=== PATIENT | male | born 1965 | race Caucasian/White ===

== ENCOUNTER 2017-05-22 22:57 | Inpatient (IN) | payer OTHER ==
[~2017-05-22] VITALS: Ht 177.8 cm; Wt 122.5 kg
[~2017-05-22 22:57] MED LIST: BISO1TAB37 PO; SULF500T5 PO
[2017-05-23] MEDS ORDERED: ONDANSETRON 4 MG/2 ML (SDV) Z0FRAN IVP ONE ×2 (00:30→07:00)
[2017-05-23 00:31] LABS: BASOPHILS # (AUTO) 0.1 10^3/uL (0.0-0.1); BASOPHILS % (AUTO) 1 % (0-10); EOSINOPHILS # (AUTO) 0.2 10^3/uL (0.0-0.3); EOSINOPHILS % (AUTO) 2 % (0-10); HEMATOCRIT 42 % (40-54); HEMOGLOBIN 15.6 G/DL (13.3-17.7); LYMPHOCYTES # (AUTO) 0.8 X 10^3 (1.0-4.0); LYMPHOCYTES % (AUTO) 10 % (12-44); MEAN CORPUSCULAR HEMOGLOBIN 32 PG (25-34); MEAN CORPUSCULAR HGB CONC 37 G/DL (32-36); MEAN CORPUSCULAR VOLUME 85 FL (80-99); MEAN PLATELET VOLUME 10.7 FL (7.4-10.4); MONOCYTES % (AUTO) 13 % (0-12); NEUTROPHILS # (AUTO) 5.8 X 10^3 (1.8-7.8); NEUTROPHILS % (AUTO) 74 % (42-75); PLATELET COUNT 134 10^3/uL (130-400); RED BLOOD COUNT 4.96 10^6/uL (4.35-5.85); RED CELL DISTRIBUTION WIDTH 13.8 % (10.0-14.5); WHITE BLOOD COUNT 7.9 10^3/uL (4.3-11.0)
[2017-05-23 00:47] LABS: ALANINE AMINOTRANSFERASE 34 U/L (0-55); ALKALINE PHOSPHATASE 255 U/L (40-136); AMMONIA 115 UMOL/L (11-32); BILIRUBIN,TOTAL 2.2 MG/DL (0.1-1.0); BUN/CREATININE RATIO 15; CALCIUM 8.1 MG/DL (8.5-10.1); CARBON DIOXIDE 25 MMOL/L (21-32); CHLORIDE 98 MMOL/L (98-107); CREATININE SERUM 1.01 MG/DL (0.60-1.30); GFR ESTIMATED > 60; GLUCOSE 110 MG/DL (70-105); MAGNESIUM 1.6 MG/DL (1.8-2.4); POTASSIUM 2.9 MMOL/L (3.6-5.0); SODIUM 136 MMOL/L (135-145); TOTAL PROTEIN 5.8 GM/DL (6.4-8.2)
[2017-05-23] MEDS ORDERED: LACTULOSE SYRUP 10GM/15ML (ENULOSE) 30ML UDC PO ONE ×2 (01:15→07:30)
--- NOTE | 2017-05-23 01:22 | ED Abdominal Pain ---
General Chief Complaint: Abdominal/GI Problems Stated Complaint: STOMACH PAIN Nursing Triage Note: PT REPORTS ABDOMINAL PAIN X 2 DAYS. PT REPORTS PT HAS HX OF CIRROSIS OF LIVER AND ULCERATIVE COLITIS. ALSO REPORTS INCREAS IN CONFUSION TODAY. Sepsis Screen: No Definite Risk Source of Information: Patient Exam Limitations: No Limitations History of Present Illness Date Seen by Provider: May 23, 2017 Time Seen by Provider: 01:00 Initial Comments Here with abdominal pain 2 days and confusion. Has history of hepatic failure. Denies fever or vomiting. States pain is actually better now. Liver failure his recent diagnosis apparently. Denies breathing problems. Timing/Duration: 2-3 Days Severity/Quality: Moderate, Aching Location: Generalized Abdomen Radiation: No Radiation Activities at Onset: None Modifying Factors: Improves With Resting Associated Symptoms: No Back Pain, No Chest Pain, No Fever/Chills, Fatigue, No Shortness of Air, Weakness Allergies and Home Medications Allergies Coded Allergies: No Known Drug Allergies (Verified , 02/01/16) Home Medications Bisoprolol Fumarate/Hctz 1 Each Tablet, 1 EACH PO DAILY, (Reported) Sulfadiazine 500 Mg Tablet, 2,000 MG PO BID, (Reported) Review of Systems Constitutional: see HPI, No chills, No fever, malaise, weakness EENTM: No Symptoms Reported Respiratory: No Symptoms Reported Cardiovascular: No Symptoms Reported Gastrointestinal: Abdominal Pain, Denies Diarrhea, Nausea, Denies Vomiting Genitourinary: No Symptoms Reported Musculoskeletal: no symptoms reported All Other Systems Reviewed Negative Unless Noted: Yes Past Dydqzxa-Pwyyhy-Vzaxfs Hx Patient Social History Alcohol Use: Denies Use Recreational Drug Use: No Smoking Status: Former Smoker Former Smoker, Quit: May 01, 2015 Recent Foreign Travel: No Contact w/Someone Who Travel: No Recent Infectious Disease Expo: No Recent Hopitalizations: No Surgeries History of Surgeries: Yes (ELBOW SURGERY, COLONOSCOPY) Respiratory History of Respiratory Disorde: Yes (SLEEP APNEA-CPAP) Respiratory Disorders: Sleep Apnea Cardiovascular History of Cardiac Disorders: Yes Cardiac Disorders: Hypertension Neurological History of Neurological Disord: No Genitourinary History of Genitourinary Disor: No Gastrointestinal History of Gastrointestinal Di: Yes Gastrointestinal Disorders: Colitis, Liver Disease/Jaundice, Cirrhosis Musculoskeletal History of Musculoskeletal Dis: No Endocrine History of Endocrine Disorders: No Cancer History of Cancer: No Psychosocial History of Psychiatric Problem: No Integumentary History of Skin or Integumenta: Yes Skin/Integumentary Disorders: Psoriasis Blood Transfusions History of Blood Disorders: No Adverse Reaction to a Blood Tr: No Reviewed Nursing Assessment Reviewed/Agree w Nursing PMH: Yes Family Medical History Significant Family History: No Pertinent Family Hx Physical Exam Vital Signs VS - Last 72 Hours, by Label 05/22/17 23:59 Temp 97.7 Pulse 61 Resp 18 B/P (MAP) 140/78 (98) Pulse Ox 97 Capillary Refill : Less Than 3 Seconds General Appearance: WD/WN, no apparent distress HEENT: PERRL/EOMI, pharynx normal Neck: full range of motion, supple Respiratory: lungs clear, normal breath sounds Cardiovascular: regular rate, rhythm, no murmur Gastrointestinal: normal bowel sounds, non tender, soft, hepatomegaly Extremities: non-tender, normal inspection Back: normal inspection, no CVA tenderness, no vertebral tenderness Neurologic/Psychiatric: alert, oriented x 3 Skin: normal color, warm/dry, other (clubbing of the fingers noted.) Focused Exam Evaluation Lactate Level Laboratory Tests 05/23/17 00:15: Lactic Acid Level 1.97 Lactic Acid Level Laboratory Tests Test 05/23/17 00:15 Lactic Acid Level 1.97 MMOL/L (0.50-2.00) Progress/Results/Core Measures Results/Orders Lab Results Laboratory Tests Test 05/23/17 00:15 05/23/17 01:45 Range/Units White Blood Count 7.9 4.3-11.0 10^3/uL Red Blood Count 4.96 4.35-5.85 10^6/uL Hemoglobin 15.6 13.3-17.7 G/DL Hematocrit 42 40-54 % Mean Corpuscular Volume 85 80-99 FL Mean Corpuscular Hemoglobin 32 25-34 PG Mean Corpuscular Hemoglobin Concent 37 H 32-36 G/DL Red Cell Distribution Width 13.8 10.0-14.5 % Platelet Count 134 130-400 10^3/uL Mean Platelet Volume 10.7 H 7.4-10.4 FL Neutrophils (%) (Auto) 74 42-75 % Lymphocytes (%) (Auto) 10 L 12-44 % Monocytes (%) (Auto) 13 H 0-12 % Eosinophils (%) (Auto) 2 0-10 % Basophils (%) (Auto) 1 0-10 % Neutrophils # (Auto) 5.8 1.8-7.8 X 10^3 Lymphocytes # (Auto) 0.8 L 1.0-4.0 X 10^3 Monocytes # (Auto) 1.0 0.0-1.0 X 10^3 Eosinophils # (Auto) 0.2 0.0-0.3 10^3/uL Basophils # (Auto) 0.1 0.0-0.1 10^3/uL Sodium Level 136 135-145 MMOL/L Potassium Level 2.9 L 3.6-5.0 MMOL/L Chloride Level 98 98-107 MMOL/L Carbon Dioxide Level 25 21-32 MMOL/L Anion Gap 13 5-14 MMOL/L Blood Urea Nitrogen 15 7-18 MG/DL Creatinine 1.01 0.60-1.30 MG/DL Estimat Glomerular Filtration Rate > 60 BUN/Creatinine Ratio 15 Glucose Level 110 H 70-105 MG/DL Lactic Acid Level 1.97 0.50-2.00 MMOL/L Calcium Level 8.1 L 8.5-10.1 MG/DL Magnesium Level 1.6 L 1.8-2.4 MG/DL Total Bilirubin 2.2 H 0.1-1.0 MG/DL Aspartate Amino Transf (AST/SGOT) 53 H 5-34 U/L Alanine Aminotransferase (ALT/SGPT) 34 0-55 U/L Alkaline Phosphatase 255 H 40-136 U/L Ammonia 115 H 11-32 UMOL/L C-Reactive Protein High Sensitivity 10.17 H 0.00-0.50 MG/DL Total Protein 5.8 L 6.4-8.2 GM/DL Albumin 3.0 L 3.2-4.5 GM/DL Urine Color BROWN H Urine Clarity SLIGHTLY CLOUDY Urine pH 6 5-9 Urine Specific [place] 1.015 L 1.016-1.022 Urine Protein 2+ H NEGATIVE Urine Glucose (UA) NEGATIVE NEGATIVE Urine Ketones NEGATIVE NEGATIVE Urine Nitrite POSITIVE H NEGATIVE Urine Bilirubin 2+ H NEGATIVE Urine Urobilinogen 4 H NORMAL MG/DL Urine Leukocyte Esterase 2+ H NEGATIVE Urine RBC (Auto) 3+ H NEGATIVE Urine RBC 25-50 H /HPF Urine WBC 10-25 H /HPF Urine Crystals NONE /LPF Urine Bacteria FEW H /HPF Urine Casts PRESENT /LPF Urine Hyaline Casts >50 H /LPF Urine Mucus NEGATIVE /LPF Urine Culture Indicated YES My Orders Orders - TWYLA MORTON MD Ammonia (05/23/17 00:21) Cbc With Automated Diff (05/23/17 00:21) Comprehensive Metabolic Panel (05/23/17 00:21) Hs C Reactive Protein (05/23/17 00:21) Lactic Acid Analyzer (05/23/17 00:21) Magnesium (05/23/17 00:21) Ua Culture If Indicated (05/23/17 00:21) Blood Culture (05/23/17 00:21) Saline Lock/Iv-Start (05/23/17 00:21) Chest 1 View, Ap/Pa Only (05/23/17 00:21) Ondansetron Injection (Zofran Injectio (05/23/17 00:30) Lactulose Oral Solution (Enulose Oral So (05/23/17 01:15) Urine Culture (05/23/17 01:45) Ceftriaxone Injection (Rocephin Injectio (05/23/17 02:45) Medications Given in ED Current Medications Medications Dose Ordered Sig/Vesta Route Start Time Stop Time Status Last Admin Dose Admin Ceftriaxone Sodium 1000 mg/ Dextrose/Water 50 ml @ 100 mls/hr ONCE ONCE IV 05/23/17 02:45 05/23/17 03:14 DC 05/23/17 03:39 100 MLS/HR Lactulose 30 gm ONCE ONCE PO 05/23/17 01:15 05/23/17 01:16 DC 05/23/17 02:34 30 GM Ondansetron HCl 4 mg ONCE ONCE IVP 05/23/17 00:30 05/23/17 00:31 DC 05/23/17 00:31 4 MG Vital Signs/I&O Vital Sign - Last 12Hours 05/22/17 23:59 Temp 97.7 Pulse 61 Resp 18 B/P (MAP) 140/78 (98) Pulse Ox 97 Blood Pressure Mean: 98 Progress Note : Progress Note Seen and evaluated. IV, labs, Zofran 4 mg IV and chest x-ray ordered. 0100: Lactulose 30 g by mouth ordered for markedly elevated ammonia level. Normal saline 500 mL bolus. Pending UA. 0245: Rocephin 1 g IV ordered for urinary tract infection. Patient resting comfortably. 0350 We have evaluated for the possibility of transfer to [facility] due to patient's GI specialist being there and the lack of bed space here currently. The hospital is close for transfers currently. We will admit the patient to the hospital for continued treatment of the elevated ammonia and for the urinary tract infection. Family informed and agree. I have discussed the case with Dr. MENDOZA. He accepts patient for admission, inpatient status. We will continue lactulose therapy and Rocephin. Diagnostic Imaging Diagonstic Imaging: Xray Plain Films/CT/US/NM/MRI: chest Comments Right basilar atelectasis no obvious infiltrate. Departure Communication (Admissions) Time/Spoke to Admitting Phy: 03:50 Impression Impression: Primary Impression: Hepatic encephalopathy Additional Impressions: Increased ammonia level Urinary tract infection Qualified Codes: N30.00 - Acute cystitis without hematuria Disposition: ADMITTED INPATIENT Condition: Stable Admissions Decision to Admit Reason: Admit from ER (General) Decision to Admit/Date: May 23, 2017 Time/Decision to Admit Time: 03:50 Departure-Patient Inst. Referrals: DIANA BARRIGA DO (PCP/Family) Primary Care Physician TWYLA MORTON MD May 23, 2017 01:22
[2017-05-23 01:56] LABS: CLARITY,URINE SLIGHTLY CLOUDY; COLOR,URINE BROWN; GLUCOSE, URINE (UA) NEGATIVE (NEGATIVE); KETONES,URINE NEGATIVE (NEGATIVE); LEUKOCYTE ESTERASE ,URINE 2+ (NEGATIVE); NITRITE,URINE POSITIVE (NEGATIVE); PH,URINE 6 (5-9); PROTEIN,URINE 2+ (NEGATIVE); UROBILINOGEN,URINE 4 MG/DL (NORMAL)
[2017-05-23 02:04] LABS: RBC,URINE 25-50 /HPF
[2017-05-23 02:05] LABS: BACTERIA,URINE FEW /HPF; BILIRUBIN,URINE 2+ (NEGATIVE); HYALINE CASTS, URINE >50 /LPF
[2017-05-23] MEDS ORDERED: cefTRIAXone INJECTION 1,000 MG in D5W 50 ML IVPB SOLUTION 50 ML IV ONE (02:45)
[2017-05-23] MEDS ORDERED: ONDANSETRON 4 MG/2 ML (SDV) Z0FRAN ONE (06:54)
--- OUTSIDE RECORDS SUMMARY | 2017-05-23 07:13 | XMS REPORT | Continuity of Care Document ---
Author Author [facility] Organization [facility] Address Unknown Phone Unavailable Allergies Active Description Code Type Severity Reaction Onset Reported/Identified Relationship to Patient Clinical Status Yes No Known Drug Allergies [id number] Drug Allergy Unknown N/A 02/01/2016 Medications There is no data. Problems Date Dx Coded Attending Type Code Diagnosis Diagnosed By 11/30/2010 Ot 558.9 NONINF GASTROENTERIT NEC 01/27/2016 MOMO TRUJILLO, CORIE Garcia Ot K52.9 NONINFECTIVE GASTROENTERITIS AND COLITIS 01/27/2016 CORIE BARR MD Ot Z01.818 ENCOUNTER FOR OTHER PREPROCEDURAL EXAMIN 01/27/2016 CORIE BARR MD Ot Z86.010 PERSONAL HISTORY OF COLONIC POLYPS 01/28/2016 CORIE BARR MD Ot K52.9 NONINFECTIVE GASTROENTERITIS AND COLITIS 01/28/2016 CORIE BARR MD Ot Z01.818 ENCOUNTER FOR OTHER PREPROCEDURAL EXAMIN 01/28/2016 CORIE BARR MD Ot Z86.010 PERSONAL HISTORY OF COLONIC POLYPS 02/01/2016 Ot 556.9 ULCERATIVE COLITIS, UNSPECIFIED 02/01/2016 CORIE BARR MD Ot I10 ESSENTIAL (PRIMARY) HYPERTENSION 02/01/2016 CORIE BARR MD Ot K52.9 NONINFECTIVE GASTROENTERITIS AND COLITIS 02/01/2016 CORIE BARR MD Ot Z86.010 PERSONAL HISTORY OF COLONIC POLYPS 02/03/2016 CORIE BARR MD Ot I10 ESSENTIAL (PRIMARY) HYPERTENSION 02/03/2016 CORIE BARR MD Ot K52.9 NONINFECTIVE GASTROENTERITIS AND COLITIS 02/03/2016 CORIE BARR MD Ot Z86.010 PERSONAL HISTORY OF COLONIC POLYPS 03/16/2016 Ot R16.1 SPLENOMEGALY , NOT ELSEWHERE CLASSIFIED 03/16/2016 Ot R74.8 ABNORMAL LEVELS OF OTHER SERUM ENZYMES 03/16/2016 Ot R16.1 SPLENOMEGALY , NOT ELSEWHERE CLASSIFIED 03/16/2016 Ot R74.8 ABNORMAL LEVELS OF OTHER SERUM ENZYMES 03/30/2016 Ot R16.1 SPLENOMEGALY , NOT ELSEWHERE CLASSIFIED 03/30/2016 Ot R74.8 ABNORMAL LEVELS OF OTHER SERUM ENZYMES 09/19/2016 Ot R16.1 SPLENOMEGALY , NOT ELSEWHERE CLASSIFIED 09/19/2016 Ot R74.8 ABNORMAL LEVELS OF OTHER SERUM ENZYMES 09/30/2016 Ot R16.1 SPLENOMEGALY , NOT ELSEWHERE CLASSIFIED 09/30/2016 Ot R74.8 ABNORMAL LEVELS OF OTHER SERUM ENZYMES Procedures There is no data. Results Test Result Range Complete blood count (CBC) with automated white blood cell (WBC) differential - 05/23/17 00:15 Blood leukocytes automated count (number/volume) 7.9 10*3/uL 4.3-11.0 Blood erythrocytes automated count (number/volume) 4.96 10*6/uL 4.35-5.85 Venous blood hemoglobin measurement (mass/volume) 15.6 g/dL 13.3-17.7 Blood hematocrit (volume fraction) 42 % 40-54 Automated erythrocyte mean corpuscular volume 85 [foz_us] 80-99 Automated erythrocyte mean corpuscular hemoglobin (mass per erythrocyte) 32 pg 25-34 Automated erythrocyte mean corpuscular hemoglobin concentration measurement ( mass/volume) 37 g/dL 32-36 Automated erythrocyte distribution width ratio 13.8 % 10.0-14.5 Automated blood platelet count (count/volume) 134 10*3/uL 130-400 Automated blood platelet mean volume measurement 10.7 [foz_us] 7.4-10.4 Automated blood neutrophils/100 leukocytes 74 % 42-75 Automated blood lymphocytes/100 leukocytes 10 % 12-44 Blood monocytes/100 leukocytes 13 % 0-12 Automated blood eosinophils/100 leukocytes 2 % 0-10 Automated blood basophils/100 leukocytes 1 % 0-10 Blood neutrophils automated count (number/volume) 5.8 10*3 1.8-7.8 Blood lymphocytes automated count (number/volume) 0.8 10*3 1.0-4.0 Blood monocytes automated count (number/volume) 1.0 10*3 0.0-1.0 Automated eosinophil count 0.2 10*3/uL 0.0-0.3 Automated blood basophil count (count/volume) 0.1 10*3/uL 0.0-0.1 Blood lactic acid measurement (moles/volume) - 05/23/17 00:15 Blood lactic acid measurement (moles/volume) 1.97 mmol/L 0.50-2.00 Comprehensive metabolic panel - 05/23/17 00:15 Serum or plasma sodium measurement (moles/volume) 136 mmol/L 135-145 Serum or plasma potassium measurement (moles/volume) 2.9 mmol/L 3.6-5.0 Serum or plasma chloride measurement (moles/volume) 98 mmol/L 98-107 Carbon dioxide 25 mmol/L 21-32 Serum or plasma anion gap determination (moles/volume) 13 mmol/L 5-14 Serum or plasma urea nitrogen measurement (mass/volume) 15 mg/dL 7-18 Serum or plasma creatinine measurement (mass/volume) 1.01 mg/dL 0.60-1.30 Serum or plasma urea nitrogen/creatinine mass ratio 15 NRG Serum or plasma creatinine measurement with calculation of estimated glomerular filtration rate > NRG Serum or plasma glucose measurement (mass/volume) 110 mg/dL 70-105 Serum or plasma calcium measurement (mass/volume) 8.1 mg/dL 8.5-10.1 Serum or plasma total bilirubin measurement (mass/volume) 2.2 mg/dL 0.1-1.0 Serum or plasma alkaline phosphatase measurement (enzymatic activity/volume) 255 U/L 40-136 Serum or plasma aspartate aminotransferase measurement (enzymatic activity/ volume) 53 U/L 5-34 Serum or plasma alanine aminotransferase measurement (enzymatic activity/volume ) 34 U/L 0-55 Serum or plasma protein measurement (mass/volume) 5.8 g/dL 6.4-8.2 Serum or plasma albumin measurement (mass/volume) 3.0 g/dL 3.2-4.5 Magnesium - 05/23/17 00:15 Magnesium 1.6 mg/dL 1.8-2.4 Ammonia - 05/23/17 00:15 Ammonia 115 umol/L 11-32 Serum or plasma C reactive protein measurement (mass/volume) - 05/23/17 00:15 Serum or plasma C reactive protein measurement (mass/volume) 10.17 mg/dL 0.00-0.50 Complete urinalysis with reflex to culture - 05/23/17 01:45 Urine color determination BROWN NRG Urine clarity determination SLIGHTLY CLOUDY NRG Urine pH measurement by test strip 6 5-9 Specific gravity of urine by test strip 1.015 1.016- 1.022 Urine protein assay by test strip, semi-quantitative 2+ NEGATIVE Urine glucose detection by automated test strip NEGATIVE NEGATIVE Erythrocytes detection in urine sediment by light microscopy 3+ NEGATIVE Urine ketones detection by automated test strip NEGATIVE NEGATIVE Urine nitrite detection by test strip POSITIVE NEGATIVE Urine total bilirubin detection by test strip 2+ NEGATIVE Urine urobilinogen measurement by automated test strip (mass/volume) 4 mg/dL NORMAL Urine leukocyte esterase detection by dipstick 2+ NEGATIVE Automated urine sediment erythrocyte count by microscopy (number/high power field) [HPF] NRG Automated urine sediment leukocyte count by microscopy (number/high power field ) [HPF] NRG Bacteria detection in urine sediment by light microscopy FEW NRG Crystals detection in urine sediment by light microscopy NONE NRG Casts detection in urine sediment by light microscopy PRESENT NRG Mucus detection in urine sediment by light microscopy NEGATIVE NRG Complete urinalysis with reflex to culture YES NRG Hyaline casts detection in urine sediment by light microscopy >50 NRG Encounters ACCT No. Visit Date/Time Discharge Status Pt. Type Provider Facility Loc./Unit Complaint [id number] 09/21/2016 09:30:00 09/21/2016 23:59:59 CLS Preadmit DIANA BARRIGA DO [facility] RAD R74.9 ABN SERUM ENZYME LEVEL [id number] 02/01/2016 09:04:00 02/01/2016 12:15:00 DIS Outpatient CORIE BARR MD [facility] SDC HISTORY OF POLYPS [id number] 01/27/2016 05:46:00 01/27/2016 12:45:00 DIS Outpatient CORIE BARR MD [facility] PREOP HISTORY OF POLYPS [id number] 01/01/2013 18:09:00 01/01/2013 23:59:59 CLS Outpatient [id number] 05/23/2017 00:32:00 Document Registration [id number] 03/15/2016 10:36:00 Document Registration [id number] 02/01/2016 09:03:00 Document Registration [id number] 11/30/2010 05:41:00 Document Registration [id number] 11/25/2010 10:44:00 Document Registration
[2017-05-23 07:20] VITALS: BP 131/81
[2017-05-23] MEDS: NS IV 1000 ML 1,000 ML IV SCH ×2 (09:27→23:04)
--- NOTE | 2017-05-23 09:29 | Diagnostic Imaging Report ---
INDICATION: Nausea, emesis and epigastric pain. 0038 hours There is no previous study available at this time for comparison. There is mild cardiomegaly. Pulmonary vascularity is within normal limits. Increased density is seen in the right lung base which may be due to mild atelectasis and/or pneumonitis. No significant pleural fluid is appreciated. IMPRESSION: Mild cardiomegaly with mild right basilar atelectasis and/or pneumonitis. Radiographic followup would be of use. Dictated by: Dictated on workstation # [id number]
[2017-05-23] MEDS ORDERED: ONDANSETRON 4 MG/2 ML (SDV) Z0FRAN IV PRN (09:30)
[2017-05-23] MEDS ORDERED: LACTULOSE SYRUP 10GM/15ML (ENULOSE) 30ML UDC PO SCH ×2 (09:30→13:00)
[2017-05-23] MEDS ORDERED: CATHETER FLUSH 10 ML SYR IV PRN (09:30)
[2017-05-23 10:15] VITALS: BP 131/81
[2017-05-23] MEDS ORDERED: RT-ALBUTEROL SULF 2.5 MG/3 ML PRE-MIX VIAL INH PRN (10:30)
[2017-05-23] MEDS ORDERED: SULF500T7 PO (11:01)
[2017-05-23] MEDS ORDERED: CLOB15CR2 TOP (11:01)
[2017-05-23] MEDS ORDERED: BISO1TAB6 PO (11:01)
[2017-05-23] MEDS ORDERED: FURO20TA4 PO (11:01)
[2017-05-23 12:00] VITALS: BP 155/80
[2017-05-23 12:44] LABS: INR 1.2 (0.8-1.4); PROTHROMBIN TIME PATIENT 15.2 SEC (12.2-14.7)
--- NOTE | 2017-05-23 13:30 | History & Physical-Hospitalist ---
HPI History of Present Illness: HPI/Chief Complaint The patient is a 52-year-old white male who is brought to the emergency room last night with complaints of confusion and abdominal pain. She reported that during the day yesterday he had started pacing rather aimlessly and was clearly not as mentally bright as normal. He has recently been given the diagnosis of liver disease. He is currently seeing Dr. Rambo Chaparro a printer assistant in [place]. In addition he has a history of ulcerative colitis and there are biopsies done here to confirm that diagnosis. Finally he has psoriasis. He presently takes sulfasalazine for management of his colitis. Source: patient, family Exam Limitations: no limitations Date Seen 05/23/17 Time Seen by Provider: 13:24 Attending Physician Jenn Mendoza MD PCP Ivonne Casas DO Referring Physician Date of Admission May 23, 2017 at 03:52 Home Medications & Allergies Home Medications Reviewed patient Home Medication Reconciliation Form Allergies Allergies Coded Allergies No Known Drug Allergies (Vxfwyjis73/3/16) Past Oythaor-Zcjsen-Gcvyqe Hx Patient Social History Alcohol Use: Denies Use Recreational Drug Use: No Smoking Status: Former Smoker Former Smoker, Quit: May 01, 2015 Recent Foreign Travel: No Contact w/other who traveled: No Recent Hopitalizations: No Recent Infectious Disease Expo: No Surgeries Yes (ELBOW SURGERY, COLONOSCOPY) Respiratory Yes (SLEEP APNEA-CPAP) Cardiovascular Yes Hypertension Neurological No Genitourinary No Gastrointestinal Yes Colitis, Liver Disease/Jaundice, Cirrhosis Musculoskeletal No Endocrine History of Endocrine Disorders: No Cancer No Psychosocial History of Psychiatric Problem: No Integumentary History of Skin or Integumenta: Yes Skin/Integumentary Disorders: Psoriasis Blood Transfusions History of Blood Disorders: No Adverse Reaction to a Blood Tr: No Reviewed Nursing Assessment Reviewed/Agree w Nursing PMH: Yes Family Medical History Significant Family History: No Pertinent Family Hx Review of Systems Constitutional: see HPI, other EENTM: no symptoms reported Respiratory: no symptoms reported Cardiovascular: no symptoms reported Gastrointestinal: abdominal pain (rather diffuse and not severe), other ( ulcerative colitis) Genitourinary: no symptoms reported Musculoskeletal: muscle weakness Skin: other (psoriasis) Psychiatric/Neurological: See HPI Physical Exam Physical Exam Vital Signs Vital Sign - Last 12Hours 05/22/17 05/23/17 23:59 10:15 Temp 97.7 Pulse 61 Resp 18 B/P (MAP) 140/78 (98) Pulse Ox 97 O2 Delivery Room Air Capillary Refill : Less Than 3 Seconds General Appearance: No Apparent Distress Eyes: Bilateral Eye Normal Inspection HEENT: Normal ENT Inspection Neck: Full Range of Motion, Normal Inspection, Non Tender, Supple, Carotid Bruit Respiratory: Chest Non Tender, Lungs Clear, Normal Breath Sounds, No Accessory Muscle Use, No Respiratory Distress Cardiovascular: Regular Rate, Rhythm, No Edema, No Gallop, No JVD, No Murmur Gastrointestinal: Other (the abdomen is large. The skin is not shiny. There is no percussible fluid wave.) Back: Normal Inspection Extremity: Other (modest pedal edema with pitting in a crew sock distribution.) Neurologic/Psychiatric: Alert, Oriented x3, No Motor/Sensory Deficits, Normal Mood/Affect, Other (no asterixis) Skin: Other (white/silvery plaques on both elbows consistent with psoriasis) Lymphatic: No Adenopathy Results Results/Procedures Lab Laboratory Tests 05/23/17 00:15 Assessment/Plan Admission Diagnosis 1.hepatic encephalopathy, ammonia 115. 2.recent diagnosis of liver disease. 3.history of ulcerative colitis. 4.psoriasis Assessment and Plan Adjustment in medication with diuretics and potassium replacement JENN MENDOZA MD May 23, 2017 13:30
[2017-05-23] MEDS: FUROSEMIDE 40 MG/4 ML INJ (LASIX) IVP SCH (14:02)
[2017-05-23] MEDS ORDERED: INFLUENZA TRIvalent 2017-2018 0.5 ML/45 MCG SYR IM ONE (16:00)
[2017-05-23 16:45] VITALS: BP 154/82
[2017-05-23 20:15] VITALS: BP 148/76
[2017-05-23] MEDS: SPIRONOLACTONE 25 MG (ALDACTONE) TAB PO SCH (20:43)
[2017-05-23] MEDS: MELATONIN 3 MG TABLET PO PRN (20:43)
[2017-05-23] MEDS: LACTULOSE SYRUP 10GM/15ML (ENULOSE) 30ML UDC PO SCH (20:44)
[2017-05-24] VITALS: BP 144/76
[2017-05-24 04:00] VITALS: BP 145/74
[2017-05-24 05:21] LABS: BUN/CREATININE RATIO 14; CALCIUM 7.8 MG/DL (8.5-10.1); CARBON DIOXIDE 22 MMOL/L (21-32); CHLORIDE 105 MMOL/L (98-107); CREATININE SERUM 0.76 MG/DL (0.60-1.30); GFR ESTIMATED > 60; GLUCOSE 104 MG/DL (70-105); SODIUM 137 MMOL/L (135-145)
[2017-05-24 05:38] LABS: POTASSIUM 2.5 MMOL/L (3.6-5.0)
[2017-05-24] MEDS: KCL 10 MEQ TAB (MICRO K) PO SCH (06:15)
[2017-05-24 08:00] VITALS: BP 155/79
[2017-05-24] MEDS: POTASSIUM CL 10MEQ/50ML IVPB 50 ML IV SCH ×4 (08:50→13:33)
[2017-05-24] MEDS ORDERED: cefTRIAXone 1 GM/D5W 50 ML IVPB IV SCH ×2 (09:00)
[2017-05-24] MEDS: SPIRONOLACTONE 25 MG (ALDACTONE) TAB PO SCH ×2 (10:02→20:10)
[2017-05-24] MEDS: LACTULOSE SYRUP 10GM/15ML (ENULOSE) 30ML UDC PO SCH ×2 (10:03→20:10)
[2017-05-24] MEDS: FUROSEMIDE 40 MG/4 ML INJ (LASIX) IVP SCH (10:03)
--- NOTE | 2017-05-24 10:20 | Progress Note-Hospitalist ---
Subjective HPI/CC On Admission Date Seen by Provider: May 24, 2017 (n) Time Seen by Provider: 10:12 The patient is a 52-year-old white male who is brought to the emergency room last night with complaints of confusion and abdominal pain. She reported that during the day yesterday he had started pacing rather aimlessly and was clearly not as mentally bright as normal. He has recently been given the diagnosis of liver disease. He is currently seeing Dr. Rambo Chaparro a meatcutter in [place]. In addition he has a history of ulcerative colitis and there are biopsies done here to confirm that diagnosis. Finally he has psoriasis. He presently takes sulfasalazine for management of his colitis. Subjective/Events-last exam Pt reports feeling better today. Tolerating lactulose. Mentation improving. No concerns per RN. Objective Exam Vital Signs Vital Sign - Last 12Hours 05/22/17 05/23/17 23:59 10:15 Temp 97.7 Pulse 61 Resp 18 B/P (MAP) 140/78 (98) Pulse Ox 97 O2 Delivery Room Air Capillary Refill : Less Than 3 Seconds General Appearance: No Apparent Distress, WD/WN Gastrointestinal: Non Tender, Soft, Distended, No Guarding, No Rebound Extremity: Non Tender, No Pedal Edema Neurologic/Psychiatric: Alert, Oriented x3, Normal Mood/Affect Results/Procedures Lab Laboratory Tests 05/24/17 04:20 Assessment/Plan Assessment and Plan Assess & Plan/Chief Complaint hepatic encephalopathy Diagnosis/Problems Diagnosis/Problems (1) Hepatic encephalopathy Status: Acute Assessment & Plan: Continue Lactulose mentation improving Ammonia down to 54 (2) Ascites Status: Chronic Assessment & Plan: Continue Spironolactone, Lasix Monitor I/Os (3) Hypokalemia Assessment & Plan: Critical K at 2.5 today Replaced this AM Will check mag (4) Ulcerative colitis Assessment & Plan: Resume home meds Qualifiers: Qualified Codes: K51.919 - Ulcerative colitis, unspecified with unspecified complications (5) Sterile pyuria Assessment & Plan: No growth on culture Will stop antibiotics as no fever/leukocytosis (6) Essential (primary) hypertension Assessment & Plan: resume home antihypertensives JERMAINE BRUNER MD May 24, 2017 10:20 am
[2017-05-24 12:00] VITALS: BP 125/67
[2017-05-24] MEDS ORDERED: NS IV 1000 ML 1,000 ML ONE (12:27)
[2017-05-24] MEDS: NS IV 1000 ML 1,000 ML IV SCH (12:30)
[2017-05-24 16:00] VITALS: BP 125/60
[2017-05-24] MEDS: MELATONIN 3 MG TABLET PO PRN (20:10)
[2017-05-25] VITALS: BP 150/73
[2017-05-25] MEDS: KCL 10 MEQ TAB (MICRO K) PO SCH (06:26)
[2017-05-25 06:32] LABS: BASOPHILS % (AUTO) 1 % (0-10); EOSINOPHILS # (AUTO) 0.1 10^3/uL (0.0-0.3); EOSINOPHILS % (AUTO) 2 % (0-10); HEMATOCRIT 34 % (40-54); HEMOGLOBIN 12.4 G/DL (13.3-17.7); LYMPHOCYTES # (AUTO) 0.7 X 10^3 (1.0-4.0); LYMPHOCYTES % (AUTO) 11 % (12-44); MEAN CORPUSCULAR HEMOGLOBIN 31 PG (25-34); MEAN CORPUSCULAR HGB CONC 36 G/DL (32-36); MEAN CORPUSCULAR VOLUME 86 FL (80-99); MEAN PLATELET VOLUME 10.2 FL (7.4-10.4); MONOCYTES # (AUTO) 0.7 X 10^3 (0.0-1.0); MONOCYTES % (AUTO) 12 % (0-12); NEUTROPHILS # (AUTO) 4.5 X 10^3 (1.8-7.8); NEUTROPHILS % (AUTO) 75 % (42-75); PLATELET COUNT 103 10^3/uL (130-400); RED BLOOD COUNT 3.98 10^6/uL (4.35-5.85); RED CELL DISTRIBUTION WIDTH 13.3 % (10.0-14.5)
[2017-05-25 06:52] LABS: ALANINE AMINOTRANSFERASE 30 U/L (0-55); ALBUMIN 2.5 GM/DL (3.2-4.5); ALKALINE PHOSPHATASE 205 U/L (40-136); BILIRUBIN,TOTAL 2.4 MG/DL (0.1-1.0); BUN/CREATININE RATIO 16; CALCIUM 7.7 MG/DL (8.5-10.1); CARBON DIOXIDE 23 MMOL/L (21-32); CHLORIDE 103 MMOL/L (98-107); GFR ESTIMATED > 60; GLUCOSE 107 MG/DL (70-105); MAGNESIUM 1.3 MG/DL (1.8-2.4); POTASSIUM 2.8 MMOL/L (3.6-5.0); SODIUM 137 MMOL/L (135-145); TOTAL PROTEIN 4.7 GM/DL (6.4-8.2)
[2017-05-25] MEDS ORDERED: SPIR25TA3 PO (07:53)
[2017-05-25] MEDS ORDERED: POTA10TA6 PO (07:53)
[2017-05-25] MEDS ORDERED: LACT20SO2 PO (07:55)
[2017-05-25 08:00] VITALS: BP 138/72
[2017-05-25] MEDS: MAGNESIUM 1 GM/100 ML IVPB 100 ML IV SCH ×2 (08:49→09:45)
[2017-05-25] MEDS: POTASSIUM CL 10MEQ/50ML IVPB 50 ML IV SCH ×4 (08:49→11:57)
[2017-05-25] MEDS: FUROSEMIDE 40 MG/4 ML INJ (LASIX) IVP SCH (08:51)
[2017-05-25] MEDS: SPIRONOLACTONE 25 MG (ALDACTONE) TAB PO SCH (08:51)
[2017-05-25] MEDS: LACTULOSE SYRUP 10GM/15ML (ENULOSE) 30ML UDC PO SCH (08:52)
[2017-05-25] MEDS ORDERED: BISOPROLOL/HCTZ 10/6.25 MG (ZIAC) TAB PO SCH (09:00)
[2017-05-25] MEDS ORDERED: sulfaSALAzine 500 MG (AZULFIDINE) TAB PO SCH (09:00)
--- NOTE | 2017-05-25 13:58 | Discharge Summary-Hospitalist ---
Diagnosis/Chief Complaint Date of Admission May 23, 2017 at 3:52 am Date of Discharge Admission Diagnosis 1.hepatic encephalopathy, ammonia 115. 2.recent diagnosis of liver disease. 3.history of ulcerative colitis. 4.psoriasis Discharge Diagnosis hepatic encephalopathy (1) Hepatic encephalopathy Status: Acute Assessment & Plan: Continue Lactulose mentation improving (2) Ascites Status: Chronic Assessment & Plan: Continue Spironolactone, Lasix Monitor I/Os (3) Hypokalemia Assessment & Plan: Potassium improved mag replaced Will start K supplement at DC and will also be on less Lasix (4) Ulcerative colitis Assessment & Plan: Resume home meds (5) Sterile pyuria Assessment & Plan: No growth on culture Will stop antibiotics as no fever/leukocytosis (6) Essential (primary) hypertension Assessment & Plan: resume home antihypertensives Discharge Summary Discharge Physical Examination Allergies: Coded Allergies: No Known Drug Allergies (Verified , 02/01/16) Vitals & I&Os Vital Signs Date Time Temp Pulse Resp B/P (MAP) Pulse Ox O2 Delivery O2 Flow Rate FiO2 05/25/17 11:28 92 Room Air 05/25/17 08:00 99.6 92 18 138/72 (94) Hospital Course Pt was admitted to the hospital with hepatic encephalopathy and an ammonia level of 115. He was started on lactulose and mentation improved significantly. He was found to have some electrolyte imbalances but those were improving and IV diuretics were to be discontinued. I advised them to follow up with their PCP early next week for follow up. They will also schedule with his GI doctor. He and his felt comfortable with plan for discharge today. Labs (last 24 hrs) Laboratory Tests 05/25/17 06:15: White Blood Count 6.0, Red Blood Count 3.98L, Hemoglobin 12.4#L, Hematocrit 34L , Mean Corpuscular Volume 86, Mean Corpuscular Hemoglobin 31, Mean Corpuscular Hemoglobin Concent 36, Red Cell Distribution Width 13.3, Platelet Count 103L, Mean Platelet Volume 10.2, Neutrophils (%) (Auto) 75, Lymphocytes (%) (Auto) 11L , Monocytes (%) (Auto) 12, Eosinophils (%) (Auto) 2, Basophils (%) (Auto) 1, Neutrophils # (Auto) 4.5, Lymphocytes # (Auto) 0.7L, Monocytes # (Auto) 0.7, Eosinophils # (Auto) 0.1, Basophils # (Auto) 0.0, Sodium Level 137, Potassium Level 2.8L, Chloride Level 103, Carbon Dioxide Level 23, Anion Gap 11, Blood Urea Nitrogen 11, Creatinine 0.70, Estimat Glomerular Filtration Rate > 60, BUN/ Creatinine Ratio 16, Glucose Level 107H, Calcium Level 7.7L, Magnesium Level 1.3L, Total Bilirubin 2.4H, Aspartate Amino Transf (AST/SGOT) 54H, Alanine Aminotransferase (ALT/SGPT) 30, Alkaline Phosphatase 205H, Total Protein 4.7L, Albumin 2.5L Microbiology 05/23/17 Blood Culture - Preliminary, Resulted No growth 05/23/17 Urine Culture - Final, Complete Pending Labs Laboratory Tests 05/25/17 06:15: White Blood Count 6.0, Red Blood Count 3.98, Hemoglobin 12.4, Hematocrit 34, Mean Corpuscular Volume 86, Mean Corpuscular Hemoglobin 31, Mean Corpuscular Hemoglobin Concent 36, Red Cell Distribution Width 13.3, Platelet Count 103, Mean Platelet Volume 10.2, Neutrophils (%) (Auto) 75, Lymphocytes (%) (Auto) 11 , Monocytes (%) (Auto) 12, Eosinophils (%) (Auto) 2, Basophils (%) (Auto) 1, Neutrophils # (Auto) 4.5, Lymphocytes # (Auto) 0.7, Monocytes # (Auto) 0.7, Eosinophils # (Auto) 0.1, Basophils # (Auto) 0.0, Sodium Level 137, Potassium Level 2.8, Chloride Level 103, Carbon Dioxide Level 23, Anion Gap 11, Blood Urea Nitrogen 11, Creatinine 0.70, Estimat Glomerular Filtration Rate > 60, BUN/ Creatinine Ratio 16, Glucose Level 107, Calcium Level 7.7, Magnesium Level 1.3, Total Bilirubin 2.4, Aspartate Amino Transf (AST/SGOT) 54, Alanine Aminotransferase (ALT/SGPT) 30, Alkaline Phosphatase 205, Total Protein 4.7, Albumin 2.5 Discharge Home Medications: Active Scripts Active Lactulose 20 Gm/30 Ml Solution 10 Gm PO BID Take twice until with goal of 2-3 BMs per day Klor-Con 10 (Potassium Chloride) 10 Meq Tablet.er 10 Meq PO DAILY@0700 Spironolactone 25 Mg Tablet 50 Mg PO BID Reported Bisoprolol-Hctz 10-6.25 mg Tab (Bisoprolol Fumarate/Hctz) 1 Each Tablet 1 Tab PO DAILY Furosemide 20 Mg Tablet 20 Mg PO DAILY Clobetasol Propionate 15 Gm Cream..g. TOP BID FOR PSORIASIS Sulfasalazine 500 Mg Tablet 3,000 Mg PO DAILY TAKES 6 (500MG) TABLETS Instructions to patient/family Please see electronic discharge instructions given to patient. Clinical Quality Measures DVT/VTE Risk/Contraindication: Risk Factor Score Per Nursin RFS Level Per Nursing on Admit: 2=Moderate Copy Copies To 1: DIANA BARRIGA DO Problem Qualifiers (1) Ulcerative colitis: Ulcerative colitis location: unspecified ulcerative colitis location Digestive disease complication type: unspecified complication Qualified Codes : K51.919 - Ulcerative colitis, unspecified with unspecified complications JERMAINE BRUNER MD May 25, 2017 1:58 pm
[2017-05-25 15:06] VITALS: BP 138/72
== END 2017-05-25 15:07 | disposition home or self-care (01) | DRG 442 ==
LOC: EDUNIT# 22:57 → ER 22:58 → 4TH 05-23 03:52
PROVIDERS: ADMIT Internal Medicine; ATTEND Internal Medicine
DX: K72.00 Acute and subacute hepatic failure without coma (principal); K74.60 Unspecified cirrhosis of liver; K51.90 Ulcerative colitis, unspecified, without complications; L40.9 Psoriasis, unspecified; E87.6 Hypokalemia; I10 Essential (primary) hypertension; Z23 Encounter for immunization
CPT/HCPCS: 36415; 71045; 80048; 80053; 81000; 82140; 83605; 83735; 85025; 85610; 86141; 87040; 87088; 94664; 94760; 96374; 96375; 96376; 99283

== ENCOUNTER 2017-05-26 18:10 | Inpatient (IN) | payer OTHER ==
[~2017-05-26] VITALS: Ht 177.8 cm; Wt 122.5 kg
[~2017-05-26 18:10] MED LIST changes: +BISO1TAB6 PO; +CLOB15CR2 TP; +FURO20TA4 PO; +LACT20SO2 PO; +POTA10TA6 PO; +SPIR25TA3 PO; +SULF500T7 PO
[2017-05-26 20:53] LABS: BASOPHILS # (AUTO) 0.1 10^3/uL (0.0-0.1); BASOPHILS % (AUTO) 2 % (0-10); EOSINOPHILS # (AUTO) 0.1 10^3/uL (0.0-0.3); EOSINOPHILS % (AUTO) 2 % (0-10); HEMATOCRIT 41 % (40-54); LYMPHOCYTES # (AUTO) 0.9 X 10^3 (1.0-4.0); LYMPHOCYTES % (AUTO) 11 % (12-44); MEAN CORPUSCULAR HEMOGLOBIN 31 PG (25-34); MEAN CORPUSCULAR HGB CONC 37 G/DL (32-36); MEAN CORPUSCULAR VOLUME 85 FL (80-99); MEAN PLATELET VOLUME 10.7 FL (7.4-10.4); MONOCYTES # (AUTO) 0.9 X 10^3 (0.0-1.0); MONOCYTES % (AUTO) 11 % (0-12); NEUTROPHILS # (AUTO) 6.5 X 10^3 (1.8-7.8); NEUTROPHILS % (AUTO) 75 % (42-75); PLATELET COUNT 161 10^3/uL (130-400); RED BLOOD COUNT 4.83 10^6/uL (4.35-5.85); RED CELL DISTRIBUTION WIDTH 13.9 % (10.0-14.5); WHITE BLOOD COUNT 8.6 10^3/uL (4.3-11.0)
[2017-05-26 21:16] LABS: ALANINE AMINOTRANSFERASE 33 U/L (0-55); ALBUMIN 3.2 GM/DL (3.2-4.5); ALKALINE PHOSPHATASE 324 U/L (40-136); AMMONIA 107 UMOL/L (11-32); BILIRUBIN,TOTAL 2.3 MG/DL (0.1-1.0); BUN/CREATININE RATIO 15; CALCIUM 8.5 MG/DL (8.5-10.1); CARBON DIOXIDE 24 MMOL/L (21-32); CHLORIDE 101 MMOL/L (98-107); CREATININE SERUM 0.82 MG/DL (0.60-1.30); GFR ESTIMATED > 60; GLUCOSE 109 MG/DL (70-105); POTASSIUM 3.1 MMOL/L (3.6-5.0); SODIUM 136 MMOL/L (135-145); TOTAL PROTEIN 5.9 GM/DL (6.4-8.2)
--- NOTE | 2017-05-26 21:46 | ED General ---
General Chief Complaint: Altered Mental Status Stated Complaint: CIRRHOSIS OF LIVER,CONFUSION Nursing Triage Note: pt was dc'd from hospital yesterday with cirrhosis of the liver. reports he is having altered mental status again today, concerned ammonia level is rising. Nursing Sepsis Screen: No Definite Risk Source of Information: Patient Exam Limitations: No Limitations History of Present Illness Date Seen by Provider: May 26, 2017 Time Seen by Provider: 21:40 Initial Comments The patient is a 52-year-old white male known to me from a visit and admission on 05/23/17. He had been recently diagnosed with liver disease. He had been in the hospital in [place]. He had been discharged. On 05/23 his noted him to become confused and wander about aimlessly. He Become more confused the day went on. On his workup here he was found to have an ammonia of 115. He cleared rather quickly with lactulose and IV fluids. It was also noted that he had significant elevation of his liver enzymes. He was discharged home and had done reasonably well until today. His stated that he appeared to be normal this morning. He became more confused. She gave him an additional dose of lactulose. They had a long wait in the waiting room and he became more confused during that period of time. Timing/Duration: 12 Hours Allergies and Home Medications Allergies Coded Allergies: No Known Drug Allergies (Verified , 02/01/16) Home Medications Bisoprolol Fumarate/Hctz 1 Each Tablet, 1 TAB PO DAILY, (Reported) Clobetasol Propionate 15 Gm Cream..g., TOP BID, (Reported) FOR PSORIASIS Furosemide 20 Mg Tablet, 20 MG PO DAILY, (Reported) Lactulose 20 Gm/30 Ml Solution, 10 GM PO BID, #30 Take twice until with goal of 2-3 BMs per day Prescribed by: JERMAINE BRUNER on 05/25/17 0755 Potassium Chloride 10 Meq Tablet.er, 10 MEQ PO DAILY@0700, #30 Prescribed by: JERMAINE BRUNER on 05/25/17 0753 Spironolactone 25 Mg Tablet, 50 MG PO BID, #60 Prescribed by: JERMAINE BRUNER on 05/25/17 0753 Sulfasalazine 500 Mg Tablet, 3,000 MG PO DAILY, (Reported) TAKES 6 (500MG) TABLETS Constitutional: see HPI EENTM: no symptoms reported Respiratory: no symptoms reported Cardiovascular: no symptoms reported Gastrointestinal: other (increase in girth) Genitourinary: no symptoms reported Musculoskeletal: no symptoms reported Skin: no symptoms reported Psychiatric/Neurological: No Symptoms Reported Past Ghxceec-Xajuto-Dhrgnu Hx Patient Social History Former Smoker, Quit: May 01, 2015 Recent Foreign Travel: No Contact w/Someone Who Travel: No Recent Infectious Disease Expo: No Recent Hopitalizations: No Immunizations Up To Date Date of Influenza Vaccine: May 23, 2017 Surgeries History of Surgeries: Yes (ELBOW SURGERY, COLONOSCOPY) Respiratory History of Respiratory Disorde: Yes (SLEEP APNEA-CPAP) Respiratory Disorders: Sleep Apnea Cardiovascular History of Cardiac Disorders: Yes Cardiac Disorders: Hypertension Neurological History of Neurological Disord: No Genitourinary History of Genitourinary Disor: No Gastrointestinal History of Gastrointestinal Di: Yes Gastrointestinal Disorders: Colitis, Liver Disease/Jaundice, Cirrhosis Musculoskeletal History of Musculoskeletal Dis: No Endocrine History of Endocrine Disorders: No Cancer History of Cancer: No Psychosocial History of Psychiatric Problem: No Integumentary History of Skin or Integumenta: Yes Skin/Integumentary Disorders: Psoriasis Blood Transfusions History of Blood Disorders: No Adverse Reaction to a Blood Tr: No Family Medical History Significant Family History: No Pertinent Family Hx Physical Exam Vital Signs Vital Sign - Last 12Hours 05/26/17 19:11 Temp 96.7 Pulse 65 B/P (MAP) 121/72 (88) Pulse Ox 95 Capillary Refill : Less Than 3 Seconds General Appearance: Moderate Distress, Other (gaze askance) HEENT: PERRL/EOMI, TMs Normal, Normal ENT Inspection, Pharynx Normal Neck: Normal Inspection Respiratory: Chest Non Tender, Lungs Clear, Normal Breath Sounds, No Accessory Muscle Use, No Respiratory Distress Cardiovascular: Regular Rate, Rhythm, No Edema, No Gallop, No JVD, No Murmur, Normal Peripheral Pulses Gastrointestinal: Other (apparent fluid wave) Back: Normal Inspection, No CVA Tenderness, No Vertebral Tenderness Extremity: Normal Capillary Refill, Normal Inspection, Normal Range of Motion, Non Tender, No Calf Tenderness, No Pedal Edema Neurologic/Psychiatric: Alert, No Motor/Sensory Deficits Skin: Normal Color, Warm/Dry Lymphatic: No Adenopathy Progress/Results/Core Measures Suspected Sepsis Recent Fever Within 48 Hours: No Infection Criteria Present: None New/Unexplained Altered Menta: No Sepsis Screen: No Definite Risk Sepsis Diagnosis: SIRS Temperature:96.7 Pulse: 65 Respiratory Rate: Laboratory Tests 05/26/17 20:42: White Blood Count 8.6 Blood Pressure 121 /72 Mean: 88 Laboratory Tests 05/26/17 20:42: Creatinine 0.82, Platelet Count 161, Total Bilirubin 2.3H Results/Orders Lab Results Laboratory Tests Test 05/26/17 20:42 Range/Units White Blood Count 8.6 4.3-11.0 10^3/uL Red Blood Count 4.83 4.35-5.85 10^6/uL Hemoglobin 15.0 # 13.3-17.7 G/DL Hematocrit 41 40-54 % Mean Corpuscular Volume 85 80-99 FL Mean Corpuscular Hemoglobin 31 25-34 PG Mean Corpuscular Hemoglobin Concent 37 H 32-36 G/DL Red Cell Distribution Width 13.9 10.0-14.5 % Platelet Count 161 130-400 10^3/uL Mean Platelet Volume 10.7 H 7.4-10.4 FL Neutrophils (%) (Auto) 75 42-75 % Lymphocytes (%) (Auto) 11 L 12-44 % Monocytes (%) (Auto) 11 0-12 % Eosinophils (%) (Auto) 2 0-10 % Basophils (%) (Auto) 2 0-10 % Neutrophils # (Auto) 6.5 1.8-7.8 X 10^3 Lymphocytes # (Auto) 0.9 L 1.0-4.0 X 10^3 Monocytes # (Auto) 0.9 0.0-1.0 X 10^3 Eosinophils # (Auto) 0.1 0.0-0.3 10^3/uL Basophils # (Auto) 0.1 0.0-0.1 10^3/uL Sodium Level 136 135-145 MMOL/L Potassium Level 3.1 L 3.6-5.0 MMOL/L Chloride Level 101 98-107 MMOL/L Carbon Dioxide Level 24 21-32 MMOL/L Anion Gap 11 5-14 MMOL/L Blood Urea Nitrogen 12 7-18 MG/DL Creatinine 0.82 0.60-1.30 MG/DL Estimat Glomerular Filtration Rate > 60 BUN/Creatinine Ratio 15 Glucose Level 109 H 70-105 MG/DL Calcium Level 8.5 8.5-10.1 MG/DL Total Bilirubin 2.3 H 0.1-1.0 MG/DL Aspartate Amino Transf (AST/SGOT) 64 H 5-34 U/L Alanine Aminotransferase (ALT/SGPT) 33 0-55 U/L Alkaline Phosphatase 324 H 40-136 U/L Ammonia 107 H 11-32 UMOL/L Total Protein 5.9 L 6.4-8.2 GM/DL Albumin 3.2 3.2-4.5 GM/DL My Orders Orders - JENN MENDOZA MD Ammonia (05/26/17 20:46) Cbc With Automated Diff (05/26/17 20:46) Comprehensive Metabolic Panel (05/26/17 20:46) Vital Signs/I&O Vital Sign - Last 12Hours 05/26/17 19:11 Temp 96.7 Pulse 65 B/P (MAP) 121/72 (88) Pulse Ox 95 Capillary Refill : Less Than 3 Seconds Blood Pressure Mean: 88 Departure Impression Impression: Primary Impression: hepatic failure/hepatic encephalopathy Disposition: ADMITTED INPATIENT Condition: Stable/Unchanged Admissions Decision to Admit/Date: May 26, 2017 Time/Decision to Admit Time: 21:54 Departure-Patient Inst. Referrals: DIANA BARRIGA DO (PCP/Family) Primary Care Physician JENN MENDOZA MD May 26, 2017 21:46
[2017-05-26 23:22] VITALS: BP 143/70
[2017-05-26] MEDS ORDERED: NS IV 1000 ML 1,000 ML ONE (23:52)
[2017-05-27] MEDS ORDERED: LACTULOSE SYRUP 10GM/15ML (ENULOSE) 30ML UDC PO SCH (00:30)
[2017-05-27] MEDS: NS IV 1000 ML 1,000 ML IV SCH ×2 (00:36→08:13)
[2017-05-27] MEDS: LACTULOSE SYRUP 10GM/15ML (ENULOSE) 30ML UDC PO SCH ×8 (01:09→21:51)
[2017-05-27 03:47] VITALS: BP 131/68
[2017-05-27 06:42] LABS: AMMONIA 57 UMOL/L (11-32); BUN/CREATININE RATIO 14; CALCIUM 7.7 MG/DL (8.5-10.1); CARBON DIOXIDE 24 MMOL/L (21-32); CHLORIDE 103 MMOL/L (98-107); CREATININE SERUM 0.74 MG/DL (0.60-1.30); GFR ESTIMATED > 60; GLUCOSE 97 MG/DL (70-105); POTASSIUM 2.6 MMOL/L (3.6-5.0); SODIUM 137 MMOL/L (135-145)
[2017-05-27 08:30] VITALS: BP 107/57
[2017-05-27] MEDS ORDERED: KCL 20 MEQ TAB (K-DUR) PO NR (09:19)
[2017-05-27] MEDS: MAGNESIUM 1 GM/100 ML IVPB 100 ML IV SCH ×2 (10:31→11:49)
[2017-05-27] MEDS: POTASSIUM CL 10MEQ/50ML IVPB 50 ML IV SCH ×3 (10:31→12:57)
--- NOTE | 2017-05-27 10:45 | History & Physical-Hospitalist ---
HPI History of Present Illness: HPI/Chief Complaint CC: Hepatic encephalopathy episode HPI: This is a 52yo[facility] clinic patient of mine for the past 1 year w/h/o UC managed by Dr Chaparro and JOSE FRANCISCO on Colonoscopy w/recent w/u for PBC with normal MRCP but revealed cirrhosis that just was DC from [facility] for new onset hepatic encephalopathy and went home taking Lactulose but then returned the next day with confusion of which his thought his ammonia level was elevated of which ER w/u revealed ammonia 110. Pt was placed on aggressive Lactulose regimen and I discussed getting him established with [facility] liver transplant department of which will be arranged on Monday. Source: patient, family Exam Limitations: no limitations Date Seen 05/27/17 Time Seen by Provider: 11:15 Attending Physician Ivonne Casas DO PCP Ivonne Casas DO Referring Physician Date of Admission May 26, 2017 at 22:07 Home Medications & Allergies Home Medications Reviewed patient Home Medication Reconciliation Form Allergies Allergies Coded Allergies No Known Drug Allergies ([id number]/3/16) Past Jkvyzww-Fuxerr-Nvlcyg Hx Patient Social History Marrital Status: Employed/Student: employed ([employer]) Alcohol Use: Past History Recreational Drug Use: No Smoking Status: Former Smoker Former Smoker, Quit: May 01, 2015 Physical Abuse Screen: No Sexual Abuse: No Recent Foreign Travel: No Contact w/other who traveled: No Recent Hopitalizations: No Recent Infectious Disease Expo: No Immunizations Up To Date Date of Influenza Vaccine: May 23, 2017 Surgeries Yes (ELBOW SURGERY, COLONOSCOPY) Respiratory Yes (SLEEP APNEA-CPAP) Sleep Apnea Cardiovascular Yes High Cholesterol, Hypertension Neurological No Genitourinary No Gastrointestinal Yes Colitis, Liver Disease/Jaundice, Cirrhosis Musculoskeletal No Endocrine History of Endocrine Disorders: No HEENT History of HEENT Disorders: No Cancer No Psychosocial History of Psychiatric Problem: No Integumentary History of Skin or Integumenta: Yes Skin/Integumentary Disorders: Psoriasis Blood Transfusions History of Blood Disorders: No Adverse Reaction to a Blood Tr: No Family Medical History Significant Family History: No Pertinent Family Hx Review of Systems Constitutional: see HPI, dizziness, weakness EENTM: no symptoms reported Respiratory: no symptoms reported Cardiovascular: no symptoms reported Gastrointestinal: no symptoms reported Genitourinary: no symptoms reported Musculoskeletal: no symptoms reported Skin: no symptoms reported Psychiatric/Neurological: No Symptoms Reported All Other Systems Reviewed Negative Unless Noted: Yes Physical Exam Physical Exam Vital Signs Vital Sign - Last 12Hours 05/26/17 05/26/17 05/26/17 19:11 23:22 23:39 Temp 96.7 Pulse 65 Resp 18 B/P (MAP) 121/72 (88) Pulse Ox 95 O2 Delivery Room Air O2 Flow Rate 2.00 Capillary Refill : Less Than 3 Seconds General Appearance: No Apparent Distress, WD/WN, Chronically ill, Obese Eyes: Bilateral Eye Normal Inspection, Bilateral Eye PERRL HEENT: PERRL/EOMI, Normal ENT Inspection, Pharynx Normal Neck: Full Range of Motion, Normal Inspection, Non Tender, Supple, Carotid Bruit Respiratory: Chest Non Tender, Lungs Clear, Normal Breath Sounds, No Accessory Muscle Use, No Respiratory Distress Cardiovascular: Regular Rate, Rhythm, No Edema, No Gallop, No JVD, No Murmur, Normal Peripheral Pulses Gastrointestinal: Normal Bowel Sounds, No Organomegaly, No Pulsatile Mass, Non Tender, Soft Back: Normal Inspection, No CVA Tenderness, No Vertebral Tenderness Extremity: Normal Capillary Refill, Normal Inspection, Normal Range of Motion, Non Tender, No Calf Tenderness, No Pedal Edema Neurologic/Psychiatric: Alert, Oriented x3, No Motor/Sensory Deficits, Normal Mood/Affect Skin: Normal Color, Warm/Dry Lymphatic: No Adenopathy Results Results/Procedures Lab Laboratory Tests 05/26/17 20:42 05/27/17 06:17 Assessment/Plan Admission Diagnosis Assessment: Acute hepatic encephalopathy with elevated ammonia Severe hypokalemia Severe hypomagnesemia HTN MAYELA on CPAP Ascites Assessment and Plan Plan: Lactulose QID Replace potassium and Mag Checked meds and labs Home meds Needs [facility] referral for transplant? Clinical Quality Measures DVT/VTE Risk/Contraindication: Risk Factor Score Per Nursin RFS Level Per Nursing on Admit: 4+=Very High IVONNE CASAS DO May 27, 2017 10:45
[2017-05-27] MEDS: KCL 20 MEQ TAB (K-DUR) PO SCH ×2 (11:58→18:12)
[2017-05-27] MEDS: MAGNESIUM OXIDE (MAG-OX)400 MG TAB PO SCH ×2 (11:58→18:11)
[2017-05-27 12:46] VITALS: BP_SYST 120; BP_SYST 129; BP_DIAS 73; BP_DIAS 77
[2017-05-27 16:00] VITALS: BP 138/73
[2017-05-27] MEDS ORDERED: KCL 20 MEQ TAB (K-DUR) PO SCH (17:00)
[2017-05-27 19:40] VITALS: BP 138/79
[2017-05-27] MEDS: SPIRONOLACTONE 25 MG (ALDACTONE) TAB PO SCH (21:51)
[2017-05-28] VITALS (7 sets, daily range): BP systolic 123–150; BP diastolic 66–96
[2017-05-28 05:52] LABS: BASOPHILS # (AUTO) 0.1 10^3/uL (0.0-0.1); BASOPHILS % (AUTO) 1 % (0-10); EOSINOPHILS # (AUTO) 0.2 10^3/uL (0.0-0.3); EOSINOPHILS % (AUTO) 2 % (0-10); HEMATOCRIT 34 % (40-54); HEMOGLOBIN 12.3 G/DL (13.3-17.7); LYMPHOCYTES % (AUTO) 16 % (12-44); MEAN CORPUSCULAR HEMOGLOBIN 31 PG (25-34); MEAN CORPUSCULAR HGB CONC 36 G/DL (32-36); MEAN CORPUSCULAR VOLUME 86 FL (80-99); MEAN PLATELET VOLUME 10.2 FL (7.4-10.4); MONOCYTES # (AUTO) 0.5 X 10^3 (0.0-1.0); MONOCYTES % (AUTO) 9 % (0-12); NEUTROPHILS # (AUTO) 4.6 X 10^3 (1.8-7.8); NEUTROPHILS % (AUTO) 72 % (42-75); PLATELET COUNT 113 10^3/uL (130-400); RED BLOOD COUNT 3.95 10^6/uL (4.35-5.85); RED CELL DISTRIBUTION WIDTH 13.8 % (10.0-14.5); WHITE BLOOD COUNT 6.4 10^3/uL (4.3-11.0)
[2017-05-28 06:10] LABS: ALANINE AMINOTRANSFERASE 27 U/L (0-55); ALBUMIN 2.5 GM/DL (3.2-4.5); ALKALINE PHOSPHATASE 274 U/L (40-136); AMMONIA 63 UMOL/L (11-32); BILIRUBIN,TOTAL 1.9 MG/DL (0.1-1.0); BUN/CREATININE RATIO 13; CALCIUM 7.6 MG/DL (8.5-10.1); CARBON DIOXIDE 20 MMOL/L (21-32); CHLORIDE 110 MMOL/L (98-107); CREATININE SERUM 0.63 MG/DL (0.60-1.30); GFR ESTIMATED > 60; GLUCOSE 95 MG/DL (70-105); POTASSIUM 3.1 MMOL/L (3.6-5.0); SODIUM 138 MMOL/L (135-145); TOTAL PROTEIN 4.5 GM/DL (6.4-8.2)
[2017-05-28] MEDS: KCL 20 MEQ TAB (K-DUR) PO SCH ×4 (06:24→21:45)
[2017-05-28] MEDS: SPIRONOLACTONE 25 MG (ALDACTONE) TAB PO SCH ×2 (08:15→21:45)
[2017-05-28] MEDS: sulfaSALAzine 500 MG (AZULFIDINE) TAB PO SCH (08:15)
[2017-05-28] MEDS: MAGNESIUM OXIDE (MAG-OX)400 MG TAB PO SCH ×2 (08:15→16:59)
[2017-05-28] MEDS: LACTULOSE SYRUP 10GM/15ML (ENULOSE) 30ML UDC PO SCH ×4 (08:17→21:45)
--- OUTSIDE RECORDS SUMMARY | 2017-05-28 09:23 | XMS REPORT | Continuity of Care Document ---
Author Author [facility] Organization [facility] Address Unknown Phone Unavailable Allergies Active Description Code Type Severity Reaction Onset Reported/Identified Relationship to Patient Clinical Status Yes No Known Drug Allergies [id number] Drug Allergy Unknown N/A 02/01/2016 Medications There [...] R74.8 ABNORMAL LEVELS OF OTHER SERUM ENZYMES 05/25/2017 JENN MENDOZA MD Ot E87.6 HYPOKALEMIA 05/25/2017 JENN MENDOZA MD Ot I10 ESSENTIAL (PRIMARY) HYPERTENSION 05/25/2017 JENN MENDOZA MD Ot K51.90 ULCERATIVE COLITIS, UNSPECIFIED, WITHOUT 05/25/2017 JENN MENDOZA MD Ot K72.00 ACUTE AND SUBACUTE HEPATIC FAILURE WITHO 05/25/2017 JENN MENDOZA MD Ot K74.60 UNSPECIFIED CIRRHOSIS OF LIVER 05/25/2017 JENN MENDOZA MD Ot L40.9 PSORIASIS, UNSPECIFIED 05/25/2017 JENN MENDOZA MD Ot Z23 ENCOUNTER FOR IMMUNIZATION 05/26/2017 Ot R16.1 SPLENOMEGALY , NOT ELSEWHERE CLASSIFIED 05/26/2017 Ot R74.8 ABNORMAL LEVELS OF OTHER SERUM [...] reactive protein measurement (mass/volume) 10.17 mg/dL 0.00-0.50 Bacterial blood culture - 05/23/17 00:15 Bacterial blood culture NG NRG Bacterial blood culture - 05/23/17 00:40 Bacterial blood culture NG NRG Complete urinalysis with reflex to culture - [...] urine sediment by light microscopy >50 NRG Bacterial urine culture - 05/23/17 01:45 URINE CULTURE RESULTS <10,000/ML NRG Ammonia - 05/23/17 12:10 Ammonia 54 umol/L 11-32 PT panel in platelet poor plasma by coagulation assay - 05/23/17 12:10 Prothrombin time (PT) in platelet poor plasma by coagulation assay 15.2 s 12.2-14.7 INR in platelet poor plasma or blood by coagulation assay 1.2 0.8-1.4 Whole blood basic metabolic panel - 05/24/17 04:20 Serum or plasma sodium measurement (moles/volume) 137 mmol/L 135-145 Serum or plasma potassium measurement (moles/volume) 2.5 mmol/L 3.6-5.0 Serum or plasma chloride measurement (moles/volume) 105 mmol/L 98-107 Carbon dioxide 22 mmol/L 21-32 Serum or plasma anion gap determination (moles/volume) 10 mmol/L 5-14 Serum or plasma urea nitrogen measurement (mass/volume) 11 mg/dL 7-18 Serum or plasma creatinine measurement (mass/volume) 0.76 mg/dL 0.60-1.30 Serum or plasma urea nitrogen/creatinine mass ratio 14 NRG Serum or plasma creatinine measurement with calculation of estimated glomerular filtration rate > NRG Serum or plasma glucose measurement (mass/volume) 104 mg/dL 70-105 Serum or plasma calcium measurement (mass/volume) 7.8 mg/dL 8.5-10.1 Magnesium - 05/24/17 04:20 Magnesium 1.4 mg/dL 1.8-2.4 Complete blood count (CBC) with automated white blood cell (WBC) differential - 05/25/17 06:15 Blood leukocytes automated count (number/volume) 6.0 10*3/uL 4.3-11.0 Blood erythrocytes automated count (number/volume) 3.98 10*6/uL 4.35-5.85 Venous blood hemoglobin measurement (mass/volume) 12.4 g/dL 13.3-17.7 Blood hematocrit (volume fraction) 34 % 40-54 Automated erythrocyte mean corpuscular volume 86 [foz_us] 80-99 Automated erythrocyte mean corpuscular hemoglobin (mass per erythrocyte) 31 pg 25-34 Automated erythrocyte mean corpuscular hemoglobin concentration measurement ( mass/volume) 36 g/dL 32-36 Automated erythrocyte distribution width ratio 13.3 % 10.0-14.5 Automated blood platelet count (count/volume) 103 10*3/uL 130-400 Automated blood platelet mean volume measurement 10.2 [foz_us] 7.4-10.4 Automated blood neutrophils/100 leukocytes 75 % 42-75 Automated blood lymphocytes/100 leukocytes 11 % 12-44 Blood monocytes/100 leukocytes 12 % 0-12 Automated blood eosinophils/100 leukocytes 2 % 0-10 Automated blood basophils/100 leukocytes 1 % 0-10 Blood neutrophils automated count (number/volume) 4.5 10*3 1.8-7.8 Blood lymphocytes automated count (number/volume) 0.7 10*3 1.0-4.0 Blood monocytes automated count (number/volume) 0.7 10*3 0.0-1.0 Automated eosinophil count 0.1 10*3/uL 0.0-0.3 Automated blood basophil count (count/volume) 0.0 10*3/uL 0.0-0.1 Comprehensive metabolic panel - 05/25/17 06:15 Serum or plasma sodium measurement (moles/volume) 137 mmol/L 135-145 Serum or plasma potassium measurement (moles/volume) 2.8 mmol/L 3.6-5.0 Serum or plasma chloride measurement (moles/volume) 103 mmol/L 98-107 Carbon dioxide 23 mmol/L 21-32 Serum or plasma anion gap determination (moles/volume) 11 mmol/L 5-14 Serum or plasma urea nitrogen measurement (mass/volume) 11 mg/dL 7-18 Serum or plasma creatinine measurement (mass/volume) 0.70 mg/dL 0.60-1.30 Serum or plasma urea nitrogen/creatinine mass ratio 16 NRG Serum or plasma creatinine measurement with calculation of estimated glomerular filtration rate > NRG Serum or plasma glucose measurement (mass/volume) 107 mg/dL 70-105 Serum or plasma calcium measurement (mass/volume) 7.7 mg/dL 8.5-10.1 Serum or plasma total bilirubin measurement (mass/volume) 2.4 mg/dL 0.1-1.0 Serum or plasma alkaline phosphatase measurement (enzymatic activity/volume) 205 U/L 40-136 Serum or plasma aspartate aminotransferase measurement (enzymatic activity/ volume) 54 U/L 5-34 Serum or plasma alanine aminotransferase measurement (enzymatic activity/volume ) 30 U/L 0-55 Serum or plasma protein measurement (mass/volume) 4.7 g/dL 6.4-8.2 Serum or plasma albumin measurement (mass/volume) 2.5 g/dL 3.2-4.5 Magnesium - 05/25/17 06:15 Magnesium 1.3 mg/dL 1.8-2.4 Complete blood count (CBC) with automated white blood cell (WBC) differential - 05/26/17 20:42 Blood leukocytes automated count (number/volume) 8.6 10*3/uL 4.3-11.0 Blood erythrocytes automated count (number/volume) 4.83 10*6/uL 4.35-5.85 Venous blood hemoglobin measurement (mass/volume) 15.0 g/dL 13.3-17.7 Blood hematocrit (volume fraction) 41 % 40-54 Automated erythrocyte mean corpuscular volume 85 [foz_us] 80-99 Automated erythrocyte mean corpuscular hemoglobin (mass per erythrocyte) 31 pg 25-34 Automated erythrocyte mean corpuscular hemoglobin concentration measurement ( mass/volume) 37 g/dL 32-36 Automated erythrocyte distribution width ratio 13.9 % 10.0-14.5 Automated blood platelet count (count/volume) 161 10*3/uL 130-400 Automated blood platelet mean volume measurement 10.7 [foz_us] 7.4-10.4 Automated blood neutrophils/100 leukocytes 75 % 42-75 Automated blood lymphocytes/100 leukocytes 11 % 12-44 Blood monocytes/100 leukocytes 11 % 0-12 Automated blood eosinophils/100 leukocytes 2 % 0-10 Automated blood basophils/100 leukocytes 2 % 0-10 Blood neutrophils automated count (number/volume) 6.5 10*3 1.8-7.8 Blood lymphocytes automated count (number/volume) 0.9 10*3 1.0-4.0 Blood monocytes automated count (number/volume) 0.9 10*3 0.0-1.0 Automated eosinophil count 0.1 10*3/uL 0.0-0.3 Automated blood basophil count (count/volume) 0.1 10*3/uL 0.0-0.1 Comprehensive metabolic panel - 05/26/17 20:42 Serum or plasma sodium measurement (moles/volume) 136 mmol/L 135-145 Serum or plasma potassium measurement (moles/volume) 3.1 mmol/L 3.6-5.0 Serum or plasma chloride measurement (moles/volume) 101 mmol/L 98-107 Carbon dioxide 24 mmol/L 21-32 Serum or plasma anion gap determination (moles/volume) 11 mmol/L 5-14 Serum or plasma urea nitrogen measurement (mass/volume) 12 mg/dL 7-18 Serum or plasma creatinine measurement (mass/volume) 0.82 mg/dL 0.60-1.30 Serum or plasma urea nitrogen/creatinine mass ratio 15 NRG Serum or plasma creatinine measurement with calculation of estimated glomerular filtration rate > NRG Serum or plasma glucose measurement (mass/volume) 109 mg/dL 70-105 Serum or plasma calcium measurement (mass/volume) 8.5 mg/dL 8.5-10.1 Serum or plasma total bilirubin measurement (mass/volume) 2.3 mg/dL 0.1-1.0 Serum or plasma alkaline phosphatase measurement (enzymatic activity/volume) 324 U/L 40-136 Serum or plasma aspartate aminotransferase measurement (enzymatic activity/ volume) 64 U/L 5-34 Serum or plasma alanine aminotransferase measurement (enzymatic activity/volume ) 33 U/L 0-55 Serum or plasma protein measurement (mass/volume) 5.9 g/dL 6.4-8.2 Serum or plasma albumin measurement (mass/volume) 3.2 g/dL 3.2-4.5 Ammonia - 05/26/17 20:42 Ammonia 107 umol/L 11-32 Whole blood basic metabolic panel - 05/27/17 06:17 Serum or plasma sodium measurement (moles/volume) 137 mmol/L 135-145 Serum or plasma potassium measurement (moles/volume) 2.6 mmol/L 3.6-5.0 Serum or plasma chloride measurement (moles/volume) 103 mmol/L 98-107 Carbon dioxide 24 mmol/L 21-32 Serum or plasma anion gap determination (moles/volume) 10 mmol/L 5-14 Serum or plasma urea nitrogen measurement (mass/volume) 10 mg/dL 7-18 Serum or plasma creatinine measurement (mass/volume) 0.74 mg/dL 0.60-1.30 Serum or plasma urea nitrogen/creatinine mass ratio 14 NRG Serum or plasma creatinine measurement with calculation of estimated glomerular filtration rate > NRG Serum or plasma glucose measurement (mass/volume) 97 mg/dL 70-105 Serum or plasma calcium measurement (mass/volume) 7.7 mg/dL 8.5-10.1 Ammonia - 05/27/17 06:17 Ammonia 57 umol/L 11-32 Magnesium - 05/27/17 06:17 Magnesium 1.4 mg/dL 1.8-2.4 Complete blood count (CBC) with automated white blood cell (WBC) differential - 05/28/17 05:25 Blood leukocytes automated count (number/volume) 6.4 10*3/uL 4.3-11.0 Blood erythrocytes automated count (number/volume) 3.95 10*6/uL 4.35-5.85 Venous blood hemoglobin measurement (mass/volume) 12.3 g/dL 13.3-17.7 Blood hematocrit (volume fraction) 34 % 40-54 Automated erythrocyte mean corpuscular volume 86 [foz_us] 80-99 Automated erythrocyte mean corpuscular hemoglobin (mass per erythrocyte) 31 pg 25-34 Automated erythrocyte mean corpuscular hemoglobin concentration measurement ( mass/volume) 36 g/dL 32-36 Automated erythrocyte distribution width ratio 13.8 % 10.0-14.5 Automated blood platelet count (count/volume) 113 10*3/uL 130-400 Automated blood platelet mean volume measurement 10.2 [foz_us] 7.4-10.4 Automated blood neutrophils/100 leukocytes 72 % 42-75 Automated blood lymphocytes/100 leukocytes 16 % 12-44 Blood monocytes/100 leukocytes 9 % 0-12 Automated blood eosinophils/100 leukocytes 2 % 0-10 Automated blood basophils/100 leukocytes 1 % 0-10 Blood neutrophils automated count (number/volume) 4.6 10*3 1.8-7.8 Blood lymphocytes automated count (number/volume) 1.0 10*3 1.0-4.0 Blood monocytes automated count (number/volume) 0.5 10*3 0.0-1.0 Automated eosinophil count 0.2 10*3/uL 0.0-0.3 Automated blood basophil count (count/volume) 0.1 10*3/uL 0.0-0.1 Comprehensive metabolic panel - 05/28/17 05:30 Serum or plasma sodium measurement (moles/volume) 138 mmol/L 135-145 Serum or plasma potassium measurement (moles/volume) 3.1 mmol/L 3.6-5.0 Serum or plasma chloride measurement (moles/volume) 110 mmol/L 98-107 Carbon dioxide 20 mmol/L 21-32 Serum or plasma anion gap determination (moles/volume) 8 mmol/L 5-14 Serum or plasma urea nitrogen measurement (mass/volume) 8 mg/dL 7-18 Serum or plasma creatinine measurement (mass/volume) 0.63 mg/dL 0.60-1.30 Serum or plasma urea nitrogen/creatinine mass ratio 13 NRG Serum or plasma creatinine measurement with calculation of estimated glomerular filtration rate > NRG Serum or plasma glucose measurement (mass/volume) 95 mg/dL 70-105 Serum or plasma calcium measurement (mass/volume) 7.6 mg/dL 8.5-10.1 Serum or plasma total bilirubin measurement (mass/volume) 1.9 mg/dL 0.1-1.0 Serum or plasma alkaline phosphatase measurement (enzymatic activity/volume) 274 U/L 40-136 Serum or plasma aspartate aminotransferase measurement (enzymatic activity/ volume) 51 U/L 5-34 Serum or plasma alanine aminotransferase measurement (enzymatic activity/volume ) 27 U/L 0-55 Serum or plasma protein measurement (mass/volume) 4.5 g/dL 6.4-8.2 Serum or plasma albumin measurement (mass/volume) 2.5 g/dL 3.2-4.5 Ammonia - 05/28/17 05:30 Ammonia 63 umol/L 11-32 Encounters ACCT No. Visit Date/Time Discharge Status Pt. Type Provider Facility Loc./Unit Complaint [id number] 05/23/2017 03:52:00 05/25/2017 15:07:00 DIS Inpatient KELLY TRUJILLO, JENN Cuevas [facility] 4TH HEPATIC ENCEPHALOPATHY; UTI [id number] 09/21/2016 09:30:00 09/21/2016 23:59:59 CLS Preadmit DIANA BARRIGA DO [facility] RAD R74.9 ABN SERUM ENZYME LEVEL [id number] 02/01/2016 09:04:00 02/01/2016 12:15:00 DIS Outpatient CORIE BARR MD [facility] SD HISTORY OF POLYPS [id number] 01/27/2016 05:46:00 01/27/2016 12:45:00 DIS Outpatient CORIE BARR MD [facility] PREOP HISTORY OF POLYPS [id number] 01/01/2013 18:09:00 01/01/2013 23:59:59 CLS Outpatient [id number] 05/26/2017 22:07:00 ACT Inpatient DIANA BARRIGA DO [facility] 4TH HEPATIC ENCEPHALOPATHY [id number] 03/15/2016 10:36:00 Document Registration [id number] 02/01/2016 09:03:00 Document Registration [id number] 11/30/2010 05:41:00 Document Registration [id number] 11/25/2010 10:44:00 Document Registration
--- OUTSIDE RECORDS SUMMARY | 2017-05-28 09:33 | XMS REPORT | Continuity of Care Document ---
Author Author [facility] Organization [facility] Address Unknown Phone Unavailable Allergies Active Description Code Type Severity Reaction Onset Reported/Identified Relationship to Patient Clinical Status Yes No Known Drug Allergies [id number] Drug Allergy Unknown N/A 02/01/2016 Medications There [...] Status Pt. Type Provider Facility Loc./Unit Complaint [id number] 05/23/2017 03:52:00 05/25/2017 15:07:00 DIS Inpatient KELLY TRUJILLO, JENN Cuevas [facility] 4TH HEPATIC ENCEPHALOPATHY; UTI [id number] 09/21/2016 09:30:00 09/21/2016 23:59:59 CLS Preadmit DIANA BARRIGA DO [facility] RAD R74.9 ABN SERUM ENZYME LEVEL [id number] 02/01/2016 09:04:00 02/01/2016 12:15:00 DIS Outpatient CORIE BARR MD [facility] SD HISTORY OF POLYPS [id number] 01/27/2016 05:46:00 01/27/2016 12:45:00 DIS Outpatient CORIE BARR MD [facility] PREOP HISTORY OF POLYPS [id number] 01/01/2013 18:09:00 01/01/2013 23:59:59 CLS Outpatient [id number] 05/26/2017 22:07:00 ACT Inpatient DIANA BARRIGA DO [facility] 4TH HEPATIC ENCEPHALOPATHY [id number] 03/15/2016 10:36:00 Document Registration [id number] 02/01/2016 09:03:00 Document Registration [id number] 11/30/2010 05:41:00 Document Registration [id number] 11/25/2010 10:44:00 Document Registration
--- NOTE | 2017-05-28 11:17 | Progress Note-Hospitalist ---
Progress Note HPI/CC on Admission CC: Hepatic encephalopathy episode HPI: This is a 52yoWM clinic patient of mine for the past 1 year w/h/o UC managed by Dr Chaparro and UTD on Colonoscopy w/recent w/u for PBC with normal MRCP but revealed cirrhosis that just was DC from [facility] for new onset hepatic encephalopathy and went home taking Lactulose but then returned the next day with confusion of which his thought his ammonia level was elevated of which ER w/u revealed ammonia 110. Pt was placed on aggressive Lactulose regimen and I discussed getting him established with [facility] liver transplant department of which will be arranged on Monday. Progress Notes/Assess & Plan Date Seen 05/28/17 Time Seen by Provider: 10:30 Admission Dx/Process Assessment: Acute hepatic encephalopathy with elevated ammonia Severe hypokalemia Severe hypomagnesemia HTN MAYELA on CPAP Ascites Diagonsis/Assessment & Plan Patient doing much better less confusion and ammonia level stable although increased since decrease lactulose frequency so we'll go back to every 4 hours Ambulating well Potassium still remains low and will discontinue hydrochlorothiazide since potassium wasting has been profound We'll give magnesium also and check level Open to staying another day for IV potassium and magnesium and in preparation for discharge tomorrow and will have social worker school help in syndrome records to [facility] after I rechecked to Dr. Chatterjee tomorrow. No pain is reported Abdominal ultrasound reviewed no ascites but just splenomegaly done last visit No fever, vital signs stable, pleasant, oriented 3, no confusion, at bedside Regular rate and rhythm, clear to auscultation bilaterally No abdominal pain to palpation No edema Laboratory Tests 05/28/17 05:25 05/28/17 05:30 Assessment: Acute hepatic encephalopathy with elevated ammonia Severe hypokalemia Severe hypomagnesemia HTN MAYELA on CPAP Splenomegaly on USG no ascites Plan: Lactulose Q4 hrs Replace potassium and Mag IV Checked meds and labs Home meds without HCTZ Needs [facility] referral for transplant? DIANA BARRIGA DO May 28, 2017 11:17
[2017-05-28] MEDS: POTASSIUM CL 10MEQ/50ML IVPB 50 ML IV SCH ×4 (12:47→15:02)
[2017-05-28] MEDS: MAGNESIUM 1 GM/100 ML IVPB 100 ML IV SCH ×2 (12:47→13:53)
[2017-05-28] MEDS ORDERED: SPIR25TA3 PO (14:51)
[2017-05-28] MEDS ORDERED: LACT10SO PO (14:51)
[2017-05-28] MEDS ORDERED: POTA10TA6 PO (14:51)
[2017-05-29] MEDS: LACTULOSE SYRUP 10GM/15ML (ENULOSE) 30ML UDC PO SCH ×3 (00:42→09:31)
[2017-05-29 06:09] LABS: BASOPHILS # (AUTO) 0.1 10^3/uL (0.0-0.1); BASOPHILS % (AUTO) 1 % (0-10); EOSINOPHILS # (AUTO) 0.1 10^3/uL (0.0-0.3); EOSINOPHILS % (AUTO) 2 % (0-10); HEMATOCRIT 34 % (40-54); HEMOGLOBIN 12.1 G/DL (13.3-17.7); LYMPHOCYTES % (AUTO) 16 % (12-44); MEAN CORPUSCULAR HEMOGLOBIN 31 PG (25-34); MEAN CORPUSCULAR HGB CONC 36 G/DL (32-36); MEAN CORPUSCULAR VOLUME 87 FL (80-99); MEAN PLATELET VOLUME 10.5 FL (7.4-10.4); MONOCYTES # (AUTO) 0.5 X 10^3 (0.0-1.0); MONOCYTES % (AUTO) 8 % (0-12); NEUTROPHILS # (AUTO) 4.5 X 10^3 (1.8-7.8); NEUTROPHILS % (AUTO) 73 % (42-75); PLATELET COUNT 121 10^3/uL (130-400); RED BLOOD COUNT 3.89 10^6/uL (4.35-5.85); RED CELL DISTRIBUTION WIDTH 13.6 % (10.0-14.5); WHITE BLOOD COUNT 6.1 10^3/uL (4.3-11.0)
[2017-05-29 06:34] LABS: ALANINE AMINOTRANSFERASE 30 U/L (0-55); ALBUMIN 2.6 GM/DL (3.2-4.5); ALKALINE PHOSPHATASE 286 U/L (40-136); BILIRUBIN,TOTAL 1.7 MG/DL (0.1-1.0); BUN/CREATININE RATIO 10; CALCIUM 7.8 MG/DL (8.5-10.1); CARBON DIOXIDE 21 MMOL/L (21-32); CHLORIDE 111 MMOL/L (98-107); CREATININE SERUM 0.71 MG/DL (0.60-1.30); GFR ESTIMATED > 60; GLUCOSE 102 MG/DL (70-105); MAGNESIUM 1.6 MG/DL (1.8-2.4); POTASSIUM 3.3 MMOL/L (3.6-5.0); SODIUM 140 MMOL/L (135-145)
[2017-05-29 08:00] VITALS: BP 158/79
[2017-05-29] MEDS: MAGNESIUM OXIDE (MAG-OX)400 MG TAB PO SCH (09:31)
[2017-05-29] MEDS: sulfaSALAzine 500 MG (AZULFIDINE) TAB PO SCH (09:31)
[2017-05-29] MEDS: KCL 20 MEQ TAB (K-DUR) PO SCH (09:31)
[2017-05-29] MEDS: SPIRONOLACTONE 25 MG (ALDACTONE) TAB PO SCH (09:31)
[2017-05-29] MEDS ORDERED: RIFA550T PO (09:53)
[2017-05-29] MEDS ORDERED: MAGN400T6 PO (09:53)
[2017-05-29] MEDS ORDERED: LACT20SO2 PO (09:53)
[2017-05-29] MEDS ORDERED: AMLO5TAB4 PO (09:53)
[2017-05-29] MEDS ORDERED: BISO10TA PO (09:53)
[2017-05-29] MEDS ORDERED: POTA10TA36 PO (09:53)
--- NOTE | 2017-05-29 09:56 | Discharge Summary-Hospitalist ---
Diagnosis/Chief Complaint Date of Admission May 26, 2017 at 22:07 Date of Discharge Discharge Date: May 29, 2017 Admission Diagnosis Assessment: Acute hepatic encephalopathy with elevated ammonia Severe hypokalemia Severe hypomagnesemia HTN MAYELA on CPAP Ascites Discharge Diagnosis Assessment: Acute hepatic encephalopathy with elevated ammonia Severe hypokalemia Severe hypomagnesemia HTN MAYELA on CPAP Splenomegaly on USG no ascites Plan: Lactulose Q4 hrs Replace potassium and Mag IV Checked meds and labs Home meds without HCTZ Needs [facility] referral for transplant? Discharge Summary Discharge Physical Examination Allergies: Coded Allergies: No Known Drug Allergies (Verified , 02/01/16) Vitals & I&Os Vital Signs Date Time Temp Pulse Resp B/P (MAP) Pulse Ox O2 Delivery O2 Flow Rate FiO2 05/29/17 08:00 98.0 80 20 158/79 (105) 95 Room Air 05/27/17 21:00 2.00 Hospital Course Hospital course: Patient feels well enough to go home and I did speak with Dr. Chatterjee at [facility] liver department and he will arrange for close follow-up and establish care for office ability of transplant candidacy. He did want rifaximin started along with lactulose so I have done that in addition to potassium supplementation along with alteration of blood pressure medication with addition of Norvasc 5 mg in addition to bisoprolol to eliminate the hydrochlorothiazide that was potassium wasting and we'll maintain on Mag-Ox also. He will the close follow-up with me in the clinic on and will finalize arrangements to [facility] for transplant evaluation. I did evaluate the acute hepatitis panel that was obtained in my office and that was negative when workup first started. Labs (last 24 hrs) Laboratory Tests 05/29/17 05:30: White Blood Count 6.1, Red Blood Count 3.89L, Hemoglobin 12.1L, Hematocrit 34L, Mean Corpuscular Volume 87, Mean Corpuscular Hemoglobin 31, Mean Corpuscular Hemoglobin Concent 36, Red Cell Distribution Width 13.6, Platelet Count 121L, Mean Platelet Volume 10.5H, Neutrophils (%) (Auto) 73, Lymphocytes (%) (Auto) 16 , Monocytes (%) (Auto) 8, Eosinophils (%) (Auto) 2, Basophils (%) (Auto) 1, Neutrophils # (Auto) 4.5, Lymphocytes # (Auto) 1.0, Monocytes # (Auto) 0.5, Eosinophils # (Auto) 0.1, Basophils # (Auto) 0.1, Sodium Level 140, Potassium Level 3.3L, Chloride Level 111H, Carbon Dioxide Level 21, Anion Gap 8, Blood Urea Nitrogen 7, Creatinine 0.71, Estimat Glomerular Filtration Rate > 60, BUN/ Creatinine Ratio 10, Glucose Level 102, Calcium Level 7.8L, Magnesium Level 1.6L , Total Bilirubin 1.7H, Aspartate Amino Transf (AST/SGOT) 62H, Alanine Aminotransferase (ALT/SGPT) 30, Alkaline Phosphatase 286H, Total Protein 5.0L, Albumin 2.6L Pending Labs Laboratory Tests 05/29/17 05:30: White Blood Count 6.1, Red Blood Count 3.89, Hemoglobin 12.1, Hematocrit 34, Mean Corpuscular Volume 87, Mean Corpuscular Hemoglobin 31, Mean Corpuscular Hemoglobin Concent 36, Red Cell Distribution Width 13.6, Platelet Count 121, Mean Platelet Volume 10.5, Neutrophils (%) (Auto) 73, Lymphocytes (%) (Auto) 16 , Monocytes (%) (Auto) 8, Eosinophils (%) (Auto) 2, Basophils (%) (Auto) 1, Neutrophils # (Auto) 4.5, Lymphocytes # (Auto) 1.0, Monocytes # (Auto) 0.5, Eosinophils # (Auto) 0.1, Basophils # (Auto) 0.1, Sodium Level 140, Potassium Level 3.3, Chloride Level 111, Carbon Dioxide Level 21, Anion Gap 8, Blood Urea Nitrogen 7, Creatinine 0.71, Estimat Glomerular Filtration Rate > 60, BUN/ Creatinine Ratio 10, Glucose Level 102, Calcium Level 7.8, Magnesium Level 1.6, Total Bilirubin 1.7, Aspartate Amino Transf (AST/SGOT) 62, Alanine Aminotransferase (ALT/SGPT) 30, Alkaline Phosphatase 286, Total Protein 5.0, Albumin 2.6 Discharge Home Medications: Active Scripts Active Xifaxan (Rifaximin) 550 Mg Tablet 550 Mg PO BID Bisoprolol Fumarate 10 Mg Tablet 10 Mg PO DAILY Norvasc (Amlodipine Besylate) 5 Mg Tablet 5 Mg PO DAILY Potassium Chloride 10 Meq Tab.er.prt 20 Meq PO TID Magnesium Oxide 400 Mg Tablet 400 Mg PO BIDPC Lactulose 20 Gm/30 Ml Solution 20 Gm PO Q4HR Reported Spironolactone 25 Mg Tablet 50 Mg PO BID TAKES 2 (25 MG) TABLETES Klor-Con 10 (Potassium Chloride) 10 Meq Tablet.er 10 Meq PO DAILY Lactulose 10 Gm/15 Ml Solution 10 Gm PO BID Bisoprolol-Hctz 10-6.25 mg Tab (Bisoprolol Fumarate/Hctz) 1 Each Tablet 1 Tab PO DAILY Clobetasol Propionate 15 Gm Cream..g. TP BID FOR PSORIASIS Sulfasalazine 500 Mg Tablet 3,000 Mg PO DAILY TAKES 6 (500MG) TABLETS Instructions to patient/family Please see electronic discharge instructions given to patient. Clinical Quality Measures DVT/VTE Risk/Contraindication: Risk Factor Score Per Nursin RFS Level Per Nursing on Admit: 4+=Very High DIANA BARRIGA DO May 29, 2017 09:56
[2017-05-30 08:03] LABS: HEPATITIS C ANTIBODY C Non-Reactive (Non-Reactive)
== END 2017-05-29 11:55 | disposition home or self-care (01) | DRG 443 ==
LOC: EDUNIT# 18:10 → ER 18:12 → 4TH 22:07
PROVIDERS: ADMIT Internal Medicine; ATTEND Internal Medicine
DX: K72.00 Acute and subacute hepatic failure without coma (principal); K74.60 Unspecified cirrhosis of liver; E87.6 Hypokalemia; E83.42 Hypomagnesemia; I10 Essential (primary) hypertension; G47.33 Obstructive sleep apnea (adult) (pediatric); E78.00 Pure hypercholesterolemia, unspecified; Z87.891 Personal history of nicotine dependence
CPT/HCPCS: 36415; 80048; 80053; 80074; 82140; 83735; 85025; 99281

== ENCOUNTER → 2017-10-03 | Outpatient (CLI) | payer OTHER ==
[~2017-10-03] MED LIST changes: +AMLO5TAB4 PO; +BISO10TA PO; +LACT10SO PO; +MAGN400T6 PO; +POTA10TA36 PO; +RIFA550T PO
--- NOTE | 2017-10-03 09:41 | Diagnostic Imaging Report ---
PROCEDURE: US abdomen complete. TECHNIQUE: Multiple real-time grayscale images were obtained over the abdomen in various projections. INDICATION: Cirrhosis and hepatocellular carcinoma screening. Comparison made with prior examination of 03/15/2016. Liver is somewhat small and heterogeneous. The liver measures 12 cm. There is hepatofugal flow in the portal vein. Common bile duct not visualized. No intrahepatic biliary ductal dilatation. There is no cholelithiasis. Gallbladder wall is upper limits of normal at 3 mm. The pancreas is largely obscured by bowel gas. Splenomegaly with spleen measuring up to 15.7 cm. The aorta is obscured. IVC is patent. Both kidneys normal in appearance. No ascites. IMPRESSION: Small heterogeneous liver with splenomegaly and hepatofugal flow in the portal vein. Findings compatible with cirrhosis and portal venous hypertension. Dictated by: Dictated on workstation # [id number]
== END ==
LOC: RAD 07:41
PROVIDERS: ATTEND Internal Medicine
DX: K74.69 Other cirrhosis of liver (principal); R16.1 Splenomegaly, not elsewhere classified
CPT/HCPCS: 76700

== ENCOUNTER → 2018-04-02 | Outpatient (CLI) | payer OTHER ==
[~2018-04-02] MED LIST changes: +GADOBUTROL 15 MMOL/15 ML (GADAVIST) VIAL IV ONE; -SPIR25TA3 PO; +SPIR25TA5 PO
[2018-04-02 09:37] LABS: ALANINE AMINOTRANSFERASE 44 U/L (0-55); ALBUMIN 3.8 GM/DL (3.2-4.5); ALKALINE PHOSPHATASE 280 U/L (40-136); BILIRUBIN,TOTAL 2.2 MG/DL (0.1-1.0); BUN/CREATININE RATIO 14; CALCIUM 9.3 MG/DL (8.5-10.1); CARBON DIOXIDE 24 MMOL/L (21-32); CHLORIDE 107 MMOL/L (98-107); CREATININE SERUM 0.92 MG/DL (0.60-1.30); GFR ESTIMATED > 60; GLUCOSE 97 MG/DL (70-105); SODIUM 140 MMOL/L (135-145); TOTAL PROTEIN 6.6 GM/DL (6.4-8.2)
--- NOTE | 2018-04-02 12:18 | Diagnostic Imaging Report ---
PROCEDURE: MR imaging cholangiography-pancreatography. TECHNIQUE: Multiplanar imaging of the abdomen was performed on a 1.5 Laury magnet without contrast. 3D reconstructions were made for the MRCP INDICATION: Cirrhosis. MRCP protocol was utilized. Liver appears to have a nodular contour. No discrete mass is seen. Gallbladder is unremarkable. Spleen is slightly enlarged at 16.7 cm. No adrenal mass is identified. There do appear to be some varices in the upper abdomen with apparent splenorenal shunt. No ascites is identified. Intrahepatic and extrahepatic bile ducts are nondilated. No definite filling defects within the bile ducts are seen. IMPRESSION: Features suggestive of cirrhosis with some portal hypertension with mild splenomegaly and upper abdominal varices with splenorenal shunt. No definite liver mass is identified on this noncontrast study. There is no ascites. Note is made of a small 16 mm left renal cyst. Dictated by: Dictated on workstation # [id number]
--- NOTE | 2018-04-02 12:46 | Diagnostic Imaging Report ---
PROCEDURE: MR imaging abdomen with and without contrast. TECHNIQUE: Multiplanar, multisequence MR imaging of the abdomen was performed with and without contrast. INDICATION: Cirrhosis. COMPARISON: No prior MRI abdomen studies are available for comparison. FINDINGS: Nodular contour to the liver is seen. The liver does show heterogeneous parenchymal intensity. No discrete liver mass is identified. Spleen is enlarged at approximately 16.8 cm. There are numerous varices medial to the spleen. There is a splenorenal shunt. There is no ascites. Pancreas is unremarkable. No definite adrenal mass is seen. The partially visualized kidneys are unremarkable. Aorta is nonaneurysmal. IMPRESSION: Features consistent with cirrhosis and portal hypertension. No discrete liver mass is detected. There is no ascites. Dictated by: Dictated on workstation # [id number]
== END ==
LOC: RAD 08:56
PROVIDERS: ATTEND Nurse Practitioner Adult Health
DX: K74.60 Unspecified cirrhosis of liver (principal); K76.6 Portal hypertension; R16.1 Splenomegaly, not elsewhere classified; N28.1 Cyst of kidney, acquired; Z96.89 Presence of other specified functional implants
CPT/HCPCS: 36415; 74181; 74183; 80053; 82105; 86301

== ENCOUNTER 2018-07-02 14:38 | Observation (INO) | payer OTHER ==
[~2018-07-02] VITALS: Ht 177.8 cm; Wt 122.5 kg
[~2018-07-02 14:38] MED LIST changes: -GADOBUTROL 15 MMOL/15 ML (GADAVIST) VIAL IV ONE
[2018-07-02] MEDS ORDERED: CALCIUM CARBONATE 500 MG (TUMS) TAB.CHEW PO PRN (14:45)
[2018-07-02] MEDS ORDERED: LOPERAMIDE 2 MG (IMODIUM) CAP PO PRN (14:45)
[2018-07-02] MEDS ORDERED: ONDANSETRON 4 MG/2 ML (SDV) Z0FRAN IVP PRN (14:45)
[2018-07-02 15:00] VITALS: BP 143/92
[2018-07-02] MEDS: NS IV 1000 ML 1,000 ML IV SCH (15:37)
--- NOTE | 2018-07-02 15:45 | Diagnostic Imaging Report ---
PROCEDURE: US Abdomen, limited. TECHNIQUE: Multiple realtime grayscale images were obtained over the abdomen in various projections. INDICATION: Chronic liver disease. FINDINGS: Limited abdominal ultrasonography reveals no evidence of ascites. IMPRESSION: Limited abdominal ultrasonography reveals no significant ascites. Dictated by: Dictated on workstation # [id number]
[2018-07-02 16:00] LABS: BASOPHILS # (AUTO) 0.1 10^3/uL (0.0-0.1); BASOPHILS % (AUTO) 1 % (0-10); EOSINOPHILS # (AUTO) 0.1 10^3/uL (0.0-0.3); EOSINOPHILS % (AUTO) 2 % (0-10); HEMATOCRIT 37 % (40-54); HEMOGLOBIN 12.9 G/DL (13.3-17.7); LYMPHOCYTES # (AUTO) 0.9 X 10^3 (1.0-4.0); LYMPHOCYTES % (AUTO) 18 % (12-44); MEAN CORPUSCULAR HEMOGLOBIN 31 PG (25-34); MEAN CORPUSCULAR HGB CONC 35 G/DL (32-36); MEAN CORPUSCULAR VOLUME 89 FL (80-99); MEAN PLATELET VOLUME 10.4 FL (7.4-10.4); MONOCYTES # (AUTO) 0.7 X 10^3 (0.0-1.0); MONOCYTES % (AUTO) 14 % (0-12); NEUTROPHILS # (AUTO) 3.4 X 10^3 (1.8-7.8); NEUTROPHILS % (AUTO) 66 % (42-75); PLATELET COUNT 146 10^3/uL (130-400); RED CELL DISTRIBUTION WIDTH 14.5 % (10.0-14.5); WHITE BLOOD COUNT 5.1 10^3/uL (4.3-11.0)
[2018-07-02 16:07] LABS: INR 1.1 (0.8-1.4); PROTHROMBIN TIME PATIENT 14.3 SEC (12.2-14.7)
[2018-07-02 16:16] LABS: ALANINE AMINOTRANSFERASE 28 U/L (0-55); ALBUMIN 3.5 GM/DL (3.2-4.5); ALKALINE PHOSPHATASE 259 U/L (40-136); AMMONIA 77 UMOL/L (11-32); BILIRUBIN,DIRECT 1.2 MG/DL (0.0-0.3); BILIRUBIN,INDIRECT 1.1 MG/DL; BILIRUBIN,TOTAL 2.3 MG/DL (0.1-1.0); BUN/CREATININE RATIO 13; CALCIUM 9.2 MG/DL (8.5-10.1); CARBON DIOXIDE 25 MMOL/L (21-32); CHLORIDE 104 MMOL/L (98-107); CREATININE SERUM 0.88 MG/DL (0.60-1.30); GFR ESTIMATED > 60; GLUCOSE 74 MG/DL (70-105); SODIUM 137 MMOL/L (135-145); TOTAL PROTEIN 6.6 GM/DL (6.4-8.2)
--- NOTE | 2018-07-02 16:31 | Diagnostic Imaging Report ---
INDICATION: Liver disease. TECHNIQUE: Two-view chest at 04:03 p.m. CORRELATION STUDY: 05/23/2017. FINDINGS: Stable mild cardiac enlargement without evidence of overt failure. Minimal discoid areas of atelectasis at the lung bases. No infiltrate or effusion. Visualized osseous structures are unremarkable. IMPRESSION: 1. Borderline heart size without failure. Minimal basilar discoid atelectasis. Dictated by: Dictated on workstation # [id number]
[2018-07-02] MEDS ORDERED: BISO10TA PO (16:39)
[2018-07-02] MEDS ORDERED: RIFA550T PO (16:39)
[2018-07-02] MEDS ORDERED: POTA20TA8 PO (16:39)
[2018-07-02] MEDS ORDERED: AMLO5TAB9 PO (16:39)
[2018-07-02] MEDS ORDERED: OMEP40CA36 PO (16:39)
[2018-07-02] MEDS ORDERED: CITA20TA9 PO (16:39)
[2018-07-02] MEDS ORDERED: MAGN400T39 PO (16:39)
[2018-07-02] MEDS ORDERED: VITA80006 PO (16:39)
--- NOTE | 2018-07-02 16:41 | NUR ---
SPOKE WITH THE PATIENT ABOUT HIS MEDICATIONS. HE HAD HIS BOTTLES WITH HIM AND I COMPARED IT WITH THE EXT MED HX. HIS POTASSIUM IS PRESCRIBED TO TAKE TID HOWEVER HE ONLY TAKES IT ONCE DAILY AND HAS BEEN ON THAT DOSE FOR AWHILE, HE DID NOT REALIZE IT WAS WRITTEN TID. HE TAKES VITAMIN A AND MAGNESIUM OTC.
[2018-07-02 20:09] VITALS: BP 130/72
[2018-07-02 23:20] LABS: BILIRUBIN,URINE NEGATIVE (NEGATIVE); CLARITY,URINE CLEAR; COLOR,URINE BROWN; GLUCOSE, URINE (UA) NEGATIVE (NEGATIVE); KETONES,URINE NEGATIVE (NEGATIVE); LEUKOCYTE ESTERASE ,URINE 1+ (NEGATIVE); NITRITE,URINE NEGATIVE (NEGATIVE); PH,URINE 7 (5-9); PROTEIN,URINE NEGATIVE (NEGATIVE); UROBILINOGEN,URINE 1 MG/DL (NORMAL)
[2018-07-02 23:28] LABS: BACTERIA,URINE NEGATIVE /HPF; RBC,URINE RARE /HPF
[2018-07-03 00:05] VITALS: BP 128/66
[2018-07-03 04:04] LABS: BASOPHILS % (AUTO) 1 % (0-10); EOSINOPHILS # (AUTO) 0.1 10^3/uL (0.0-0.3); EOSINOPHILS % (AUTO) 2 % (0-10); HEMATOCRIT 34 % (40-54); HEMOGLOBIN 11.8 G/DL (13.3-17.7); LYMPHOCYTES % (AUTO) 22 % (12-44); MEAN CORPUSCULAR HEMOGLOBIN 31 PG (25-34); MEAN CORPUSCULAR HGB CONC 35 G/DL (32-36); MEAN CORPUSCULAR VOLUME 89 FL (80-99); MONOCYTES # (AUTO) 0.6 X 10^3 (0.0-1.0); MONOCYTES % (AUTO) 12 % (0-12); NEUTROPHILS # (AUTO) 3.1 X 10^3 (1.8-7.8); NEUTROPHILS % (AUTO) 64 % (42-75); PLATELET COUNT 144 10^3/uL (130-400); RED CELL DISTRIBUTION WIDTH 14.3 % (10.0-14.5); WHITE BLOOD COUNT 4.8 10^3/uL (4.3-11.0)
[2018-07-03 04:26] LABS: ALANINE AMINOTRANSFERASE 25 U/L (0-55); ALBUMIN 3.1 GM/DL (3.2-4.5); ALKALINE PHOSPHATASE 245 U/L (40-136); BILIRUBIN,TOTAL 2.1 MG/DL (0.1-1.0); BUN/CREATININE RATIO 13; CALCIUM 8.8 MG/DL (8.5-10.1); CARBON DIOXIDE 23 MMOL/L (21-32); CHLORIDE 106 MMOL/L (98-107); CREATININE SERUM 0.83 MG/DL (0.60-1.30); GFR ESTIMATED > 60; GLUCOSE 101 MG/DL (70-105); POTASSIUM 4.2 MMOL/L (3.6-5.0); SODIUM 137 MMOL/L (135-145); TOTAL PROTEIN 5.7 GM/DL (6.4-8.2)
--- NOTE | 2018-07-03 04:26 | Pulmonary Consultation ---
History of Present Illness History of Present Illness Date of Consultation 07/03/18 04:20 Time Seen by Provider: 04:20 Date of Admission History of Present Illness 53yo with alcohol hepatic cirrhosis directly admitted Allergies and Home Medications Allergies Coded Allergies: No Known Drug Allergies (Verified , 02/01/16) Home Medications Amlodipine Besylate 5 Mg Tablet, 5 MG PO DAILY, (Reported) Bisoprolol Fumarate 10 Mg Tablet, 10 MG PO DAILY, (Reported) Citalopram Hydrobromide 20 Mg Tablet, 20 MG PO DAILY, (Reported) Magnesium Oxide 400 Mg Tablet, 400 MG PO BID, (Reported) Omeprazole 40 Mg Capsule.dr, 40 MG PO DAILY, (Reported) Potassium Chloride 20 Meq Tab.er.prt, 20 MEQ PO 1200, (Reported) Rifaximin 550 Mg Tablet, 550 MG PO BID, (Reported) Spironolactone 25 Mg Tablet, 25 MG PO 0800,1200, (Reported) Sulfasalazine 500 Mg Tablet, 3,000 MG PO HS, (Reported) TAKES 6 (500MG) TABLETS Vitamin A 8,000 Unit Capsule, 1 CAP PO 1200, (Reported) Past Ljhwjbz-Vvuzup-Adgfek Hx Patient Social History Alcohol Use: Denies Use Recreational Drug Use: No Former Smoker, Quit: May 01, 2015 2nd Hand Smoke Exposure: No Recent Foreign Travel: No Contact w/Someone Who Travel: No Recent Infectious Disease Expo: No Recent Hopitalizations: No Immunizations Up To Date Date of Influenza Vaccine: May 23, 2017 Seasonal Allergies Seasonal Allergies: No Past Medical History Surgeries: Yes (ELBOW SURGERY, COLONOSCOPY) Respiratory: Yes (SLEEP APNEA-CPAP) Sleep Apnea Currently Using CPAP: Yes Cardiac: Yes High Cholesterol, Hypertension Neurological: No Genitourinary: No Gastrointestinal: Yes Colitis, Liver Disease/Jaundice, Cirrhosis Musculoskeletal: No Endocrine: No HEENT: No Cancer: No Psychosocial: Yes Anxiety Integumentary: Yes Psoriasis Blood Disorders: No Adverse Reaction/Blood Tranf: No Family Medical History Cardiovascular disease 19 FATHER Diabetes mellitus 19 FATHER FH: hypertension 19 MOTHER Myocardial infarction 19 FATHER 19 MOTHER G8 BROTHER No Pertinent Family Hx Sepsis Event Evaluation Height, Weight, BMI Height: 5'10.00" Weight: 270lbs. 0.0oz. 122.897981hx; 38.7 BMI Method:Stated Exam Exam Vital Signs Date Time Temp Pulse Resp B/P (MAP) Pulse Ox O2 Delivery O2 Flow Rate FiO2 07/03/18 01:00 54 07/03/18 00:05 97.7 56 18 128/66 (86) 96 NIV CPAP 07/02/18 20:09 99.6 61 18 130/72 (91) 95 07/02/18 20:00 Room Air 07/02/18 19:00 61 07/02/18 15:26 62 07/02/18 15:00 98.1 65 18 143/92 (109) 94 Room Air 07/02/18 15:00 98.1 65 18 143/92 94 Room Air 07/02/18 15:00 Room Air I & O 07/03/18 07:00 Intake Total 50 ml Output Total 125 ml Balance -75 ml Height & Weight Height: 5'10.00" Weight: 270lbs. 0.0oz. 122.734626kj; 38.7 BMI Method:Stated Results Lab Laboratory Tests 07/02/18 15:36 07/03/18 03:50 Assessment/Plan Assessment/Plan Hepatic encephalopathy with elevated bilirubin -Ammonia level 77 -Consider starting lactulose -Abd US - is limited - neg for ascites Hepatic cirrhosis hx MAYELA -Home CPAP machine Hx of tobacco use ANIKET GUERRIER DO Jul 03, 2018 04:25
[2018-07-03 04:30] VITALS: BP 131/75
[2018-07-03] MEDS: NS IV 1000 ML 1,000 ML IV SCH (05:55)
--- NOTE | 2018-07-03 09:43 | Short Stay Summary ---
History of Present Illness History of Present Illness Reason for visit/HPI CC: Confusion with presumed hepatic encephalopathy flare HPI: This is a 53-year-old white male clinic patient of mine with a history of ulcerative colitis and chronic liver disease who presented to my clinic with jaundice and severe diarrhea and increased confusion. I did speak to Dr. Zoila Chatterjee at [facility] who recommended observation and lab evaluation with IV fluid in case he was in acute liver failure. Patient had an uneventful night maintained on gentle IV fluids has not had any more diarrhea and it appears with his lab findings that this was likely a transient gastroenteritis causing dehydration and subsequent elevated ammonia level with more elevated total bilirubin and now that trend is improved. Abdominal ultrasound did not show any ascites and INR was 1.1. Patient is ready to go home. Date of Admission Jul 02, 2018 at 14:38 Date of Discharge 07/03/18 Time Seen by Provider: 09:00 Attending Physician Ivonne Casas DO Admitting Physician Ivonne Casas DO Consult Allergies and Home Medications Allergies Coded Allergies: No Known Drug Allergies (Verified , 02/01/16) Home Medications Amlodipine Besylate 5 Mg Tablet, 5 MG PO DAILY, (Reported) Bisoprolol Fumarate 10 Mg Tablet, 10 MG PO DAILY, (Reported) Citalopram Hydrobromide 20 Mg Tablet, 20 MG PO DAILY, (Reported) Magnesium Oxide 400 Mg Tablet, 400 MG PO BID, (Reported) Omeprazole 40 Mg Capsule.dr, 40 MG PO DAILY, (Reported) Potassium Chloride 20 Meq Tab.er.prt, 20 MEQ PO 1200, (Reported) Rifaximin 550 Mg Tablet, 550 MG PO BID, (Reported) Spironolactone 25 Mg Tablet, 25 MG PO 0800,1200, (Reported) Sulfasalazine 500 Mg Tablet, 3,000 MG PO HS, (Reported) TAKES 6 (500MG) TABLETS Vitamin A 8,000 Unit Capsule, 1 CAP PO 1200, (Reported) Patient Home Medication List Home Medication List Reviewed: Yes Past Bekmmty-Gzijxr-Sbvfqs Hx Patient Social History Marrital Status: 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) Alcohol Use: Denies Use Recreational Drug Use: No Smoking Status: Former Smoker Former Smoker, Quit: May 01, 2015 2nd Hand Smoke Exposure: No Physical Abuse Screen: No Sexual Abuse: No Recent Foreign Travel: No Contact w/other who traveled: No Recent Hopitalizations: No Recent Infectious Disease Expo: No Immunizations Up To Date Date of Influenza Vaccine: May 23, 2017 Seasonal Allergies Seasonal Allergies: No Surgeries Yes (ELBOW SURGERY, COLONOSCOPY) Respiratory Yes (SLEEP APNEA-CPAP) Sleep Apnea Currently Using CPAP: Yes Cardiovascular Yes High Cholesterol, Hypertension Neurological No Genitourinary No Gastrointestinal Yes Colitis, Liver Disease/Jaundice, Cirrhosis Musculoskeletal No Endocrine History of Endocrine Disorders: No HEENT History of HEENT Disorders: No Cancer No Psychosocial History of Psychiatric Problem: Yes Behavioral Health Disorders: Anxiety Integumentary History of Skin or Integumenta: Yes Skin/Integumentary Disorders: Psoriasis Blood Transfusions History of Blood Disorders: No Adverse Reaction to a Blood Tr: No Family Medical History Significant Family History: No Pertinent Family Hx Family Hx: Cardiovascular disease 19 FATHER Diabetes mellitus 19 FATHER FH: hypertension 19 MOTHER Myocardial infarction 19 FATHER 19 MOTHER G8 BROTHER Review of Systems Constitutional: see HPI, malaise, weakness EENTM: no symptoms reported Respiratory: no symptoms reported Cardiovascular: no symptoms reported Gastrointestinal: diarrhea Genitourinary: no symptoms reported Musculoskeletal: no symptoms reported Skin: no symptoms reported Psychiatric/Neurological: Other (confused, drowsy) All Other Systems Reviewed Negative Unless Noted: Yes Physical Exam Vital Signs Vital Signs - First Documented Capillary Refill : Height, Weight, BMI Height: 5'10.00" Weight: 270lbs. 0.0oz. 122.208960hw; 38.7 BMI Method:Stated General Appearance: No Apparent Distress, WD/WN, Chronically ill, Obese Eyes: Bilateral Eye Normal Inspection, Bilateral Eye PERRL, Bilateral Eye EOMI HEENT: PERRL/EOMI, Normal ENT Inspection, Pharynx Normal Neck: Full Range of Motion, Normal Inspection, Non Tender, Supple, Carotid Bruit Respiratory: Chest Non Tender, Lungs Clear, Normal Breath Sounds, No Accessory Muscle Use, No Respiratory Distress Cardiovascular: Regular Rate, Rhythm, No Edema, No Gallop, No JVD, No Murmur, Normal Peripheral Pulses Gastrointestinal: Normal Bowel Sounds, No Organomegaly, No Pulsatile Mass, Non Tender, Soft Back: Normal Inspection, No CVA Tenderness, No Vertebral Tenderness Extremity: Normal Capillary Refill, Normal Inspection, Normal Range of Motion, Non Tender, No Calf Tenderness, No Pedal Edema Neurologic/Psychiatric: Alert, Oriented x3, No Motor/Sensory Deficits, Normal Mood/Affect Skin: Normal Color, Warm/Dry Lymphatic: No Adenopathy Clinical Quality Measures Admission Status Admission Status: Observation DVT/VTE Risk/Contraindication: Risk Factor Score Per Nursin RFS Level Per Nursing on Admit: 1=Low/No VTE PPX Short Stay Diagnosis Discharge Diagnosis-Short Stay Admission Diagnosis: Hepatic encephalopathy flare Gastroenteritis Dehydration Worsening liver failure Final Discharge Diagnosis: Hepatic encephalopathy flare Gastroenteritis Dehydration Worsening liver failure Conclusion Labs Laboratory Tests 07/02/18 15:36: White Blood Count 5.1, Red Blood Count 4.13L, Hemoglobin 12.9L, Hematocrit 37L, Mean Corpuscular Volume 89, Mean Corpuscular Hemoglobin 31, Mean Corpuscular Hemoglobin Concent 35, Red Cell Distribution Width 14.5, Platelet Count 146, Mean Platelet Volume 10.4, Neutrophils (%) (Auto) 66, Lymphocytes (%) (Auto) 18 , Monocytes (%) (Auto) 14H, Eosinophils (%) (Auto) 2, Basophils (%) (Auto) 1, Neutrophils # (Auto) 3.4, Lymphocytes # (Auto) 0.9L, Monocytes # (Auto) 0.7, Eosinophils # (Auto) 0.1, Basophils # (Auto) 0.1, Prothrombin Time 14.3, INR Comment 1.1, Sodium Level 137, Potassium Level 4.0, Chloride Level 104, Carbon Dioxide Level 25, Anion Gap 8, Blood Urea Nitrogen 11, Creatinine 0.88, Estimat Glomerular Filtration Rate > 60, BUN/Creatinine Ratio 13, Glucose Level 74, Lactic Acid Level 1.20, Calcium Level 9.2, Corrected Calcium 9.6, Total Bilirubin 2.3H, Direct Bilirubin 1.2H, Indirect Bilirubin 1.1, Aspartate Amino Transf (AST/SGOT) 59H, Alanine Aminotransferase (ALT/SGPT) 28, Alkaline Phosphatase 259H, Ammonia 77H, Troponin I < 0.028, B-Type Natriuretic Peptide 97.5, Total Protein 6.6, Albumin 3.5, Thyroid Stimulating Hormone (TSH) 2.39 07/02/18 16:41: Glucometer 69L 07/02/18 19:30: Urine Color BROWNH, Urine Clarity CLEAR, Urine pH 7, Urine Specific Dixon 1.010L, Urine Protein NEGATIVE, Urine Glucose (UA) NEGATIVE, Urine Ketones NEGATIVE, Urine Nitrite NEGATIVE, Urine Bilirubin NEGATIVE, Urine Urobilinogen 1 , Urine Leukocyte Esterase 1+H, Urine RBC (Auto) NEGATIVE, Urine RBC RARE, Urine WBC 2-5, Urine Crystals NONE, Urine Bacteria NEGATIVE, Urine Casts NONE, Urine Mucus MODERATEH, Urine Culture Indicated NO 07/02/18 21:49: Glucometer 143H 07/03/18 03:50: White Blood Count 4.8, Red Blood Count 3.78L, Hemoglobin 11.8L, Hematocrit 34L, Mean Corpuscular Volume 89, Mean Corpuscular Hemoglobin 31, Mean Corpuscular Hemoglobin Concent 35, Red Cell Distribution Width 14.3, Platelet Count 144, Mean Platelet Volume 10.0, Neutrophils (%) (Auto) 64, Lymphocytes (%) (Auto) 22 , Monocytes (%) (Auto) 12, Eosinophils (%) (Auto) 2, Basophils (%) (Auto) 1, Neutrophils # (Auto) 3.1, Lymphocytes # (Auto) 1.0, Monocytes # (Auto) 0.6, Eosinophils # (Auto) 0.1, Basophils # (Auto) 0.0, Sodium Level 137, Potassium Level 4.2, Chloride Level 106, Carbon Dioxide Level 23, Anion Gap 8, Blood Urea Nitrogen 11, Creatinine 0.83, Estimat Glomerular Filtration Rate > 60, BUN/ Creatinine Ratio 13, Glucose Level 101, Calcium Level 8.8, Corrected Calcium 9.5 , Total Bilirubin 2.1H, Aspartate Amino Transf (AST/SGOT) 55H, Alanine Aminotransferase (ALT/SGPT) 25, Alkaline Phosphatase 245H, Total Protein 5.7L, Albumin 3.1L Conclusion/Plan Discharge home No changes to meds Close follow-up with sd Updated Dr. Chatterjee [facility] liver specialist Problems/Diagonsis (1) Dehydration Status: Acute (2) Gastroenteritis Status: Acute (3) Hepatic encephalopathy Status: Acute (4) Ulcerative colitis Status: Chronic Qualifiers: Qualified Codes: K51.919 - Ulcerative colitis, unspecified with unspecified complications (5) Essential (primary) hypertension Status: Chronic IVONNE CASAS DO Jul 03, 2018 09:43
[2018-07-03] MEDS ORDERED: amLODIPine 5 MG (NORVASC) TAB PO SCH (11:00)
[2018-07-03] MEDS ORDERED: KCL 20 MEQ TAB (K-DUR) PO SCH (12:00)
[2018-07-03] MEDS ORDERED: SPIRONOLACTONE 25 MG (ALDACTONE) TAB PO SCH (12:00)
[2018-07-03] MEDS ORDERED: VITAMIN A PO SCH (12:00)
[2018-07-03] MEDS ORDERED: FLU QUADRIvalent (5+ YOA) 2018-2019 (AFLURIA) 0.5 ML IM ONE (15:45)
[2018-07-03] MEDS ORDERED: MAGNESIUM OXIDE (MAG-OX)400 MG TAB PO SCH (17:00)
[2018-07-03] MEDS ORDERED: sulfaSALAzine 500 MG (AZULFIDINE) TAB PO SCH (18:00)
[2018-07-03] MEDS ORDERED: RIFAXIMIN 550 MG TABLET (XIFAXAN) PO SCH (21:00)
[2018-07-03] MEDS ORDERED: NON-FORMULARY MEDICATION 1 EA EA (Magnesium Oxide (Magnesium) 400 MG) PO SCH (21:00)
[2018-07-04] MEDS ORDERED: PANTOPRAZOLE 40 MG (PROTONIX) TAB PO SCH (07:00)
[2018-07-04] MEDS ORDERED: NON-FORMULARY MEDICATION 1 EA EA (Omeprazole 40 MG) PO SCH (09:00)
[2018-07-04] MEDS ORDERED: NON-FORMULARY MEDICATION 1 EA EA (Bisoprolol Fumarate 10 MG) PO SCH (09:00)
[2018-07-04] MEDS ORDERED: NON-FORMULARY MEDICATION 1 EA EA (Amlodipine Besylate 5 MG) PO SCH (09:00)
== END 2018-07-03 11:28 | disposition home or self-care (01) ==
LOC: ICU 14:38
PROVIDERS: ADMIT Internal Medicine; ATTEND Internal Medicine
DX: E86.0 Dehydration (principal); K70.40 Alcoholic hepatic failure without coma; K52.9 Noninfective gastroenteritis and colitis, unspecified; K51.919 Ulcerative colitis, unspecified with unspecified complications; I10 Essential (primary) hypertension; E78.00 Pure hypercholesterolemia, unspecified; K70.30 Alcoholic cirrhosis of liver without ascites; F41.9 Anxiety disorder, unspecified; G47.33 Obstructive sleep apnea (adult) (pediatric); L40.9 Psoriasis, unspecified; Z87.891 Personal history of nicotine dependence; Z79.899 Other long term (current) drug therapy
CPT/HCPCS: 36415; 71046; 76705; 80053; 81000; 82140; 82247; 82248; 82962; 83605; 83880; 84443; 84484; 85025; 85610; 87040; 99211; G0378

== ENCOUNTER → 2018-08-06 | Outpatient (CLI) | payer OTHER ==
[~2018-08-06] VITALS: Ht 177.8 cm; Wt 131.1 kg
[~2018-08-06] MED LIST changes: +AMLO5TAB9 PO; +CITA20TA9 PO; +MAGN400T39 PO; +OMEP40CA36 PO; +POTA20TA8 PO; +VITA80006 PO
== END | disposition home or self-care (01) ==
LOC: PREOP 06:54
PROVIDERS: ATTEND Surgery
DX: Z01.818 Encounter for other preprocedural examination (principal)

== ENCOUNTER 2018-08-09 10:47 | Day surgery (SDC) | payer OTHER ==
[~2018-08-09] VITALS: Ht 177.8 cm; Wt 131.1 kg
--- OUTSIDE RECORDS SUMMARY | 2018-08-09 10:50 | XMS REPORT | Clinical Summary ---
Author Author [facility] Organization [facility] Address Unknown Phone Unavailable Care Team Providers Care Talent Director Name Role Phone Ivonne Casas DO PCP Alfred Chaparro MD Unavailable Source Comments Some departments are not documenting in the electronic medical record. If you do not see the information that you expected, contact Release of Information in the Health Information Management department at [phone] for further assistance in locating additional records.[facility] Allergies No Known Allergies Medications End Date Status Medication Sig Dispensed Refills Start Date Active sulfaSALAzine Take 500 mg 0 (AZULFIDINE) 500 mg by mouth tablet twice daily. Take with food. Active amLODIPine (NORVASC) 5 mg Take 5 mg by 0 tablet mouth daily. Active bisoprolol (ZEBETA) 10 mg Take 10 mg by 0 tablet mouth daily. Active rifAXIMin (XIFAXAN) 550 Take 550 mg 0 mg tablet by mouth twice daily. Active spironolactone Take 25 mg by 0 (ALDACTONE) 25 mg tablet mouth twice daily. Take with food. Active magnesium oxide 400 mg Take by [address] cap mouth. Active omeprazole DR(+) Take 40 mg by 0 (PRILOSEC) 40 mg capsule mouth daily before breakfast. Active potassium chloride SR Take 10 mEq 0 (K-DUR) 10 mEq tablet by mouth daily. Take with a meal and a full glass of water. Active vitamin A 10,000 unit Take 1 30 capsule 2 capsule capsule by 8 mouth daily. Active citalopram hydrobromide Take 25 mg by 0 (CELEXA PO) mouth daily. Active Problems Problem Noted Date Primary sclerosing cholangitis 03/13/2018 Ulcerative colitis 03/13/2018 Essential hypertension 03/13/2018 Chronic liver disease 03/07/2018 Social History Date Tobacco Use Types Packs/Day Years Used Former Smoker Smokeless Tobacco: Never Used Tobacco Cessation: Counseling Given: Yes Alcohol Use Drinks/Week oz/Week Comments No Sex Assigned at Date Recorded Not on file Industry Job Start Date Occupation Not on file Not on file Not on file Travel End Travel History Travel Start No recent travel history available. Last Filed Vital Signs Time Taken Vital Sign Reading 03/07/2018 11:02 AM COPYHOLDER Blood Pressure 133/64 03/07/2018 11:02 AM COPYHOLDER Pulse 65 03/07/2018 11:02 AM COPYHOLDER Temperature 36.4 C (97.6 F) 03/07/2018 11:02 AM COPYHOLDER Respiratory Rate 16 03/07/2018 11:02 AM COPYHOLDER Oxygen Saturation 94% - Inhaled Oxygen - Concentration 03/07/2018 11:02 AM COPYHOLDER Weight 124.6 kg (274 lb 12.8 oz) 03/07/2018 11:02 AM COPYHOLDER Height 185.4 cm (6' 1") 03/07/2018 11:02 AM COPYHOLDER Body Mass Index 36.26 Plan of Treatment Health Maintenance Due Date Last Done Comments PHYSICAL (COMPREHENSIVE) 1973 EXAM HIV SCREENING 1981 DTAP/TDAP VACCINES (1 - 1984 Tdap) COLORECTAL CANCER 2016 SCREENING SHINGLES RECOMBINANT 2016 VACCINE (1 of 2) INFLUENZA VACCINE 11/29/2018 05/23/2017 Results Not on filefrom Last 3 Months Insurance Type Payer Benefit Subscriber ID Effective Phone Address Plan / Dates Group Indemnity [facility] xxxxxxxxx 2017-P OPTIONS resent PPO Advance Directives Patient has advance care planning documents on file. For more information, please contact: [facility] [address] [place] [address]
--- OUTSIDE RECORDS SUMMARY | 2018-08-09 10:51 | XMS REPORT | Continuity of Care Document ---
Author Organization Unknown Address Unknown Allergies Active Description Code Type Severity Reaction Onset Reported/Identified Relationship to Patient Clinical Status Yes No Known Drug Allergies [id number] Drug Allergy Unknown N/A 08/06/2018 Medications There is no data. Problems Date [...] R74.8 ABNORMAL LEVELS OF OTHER SERUM ENZYMES 05/29/2017 DIANA BARRIGA DO Ot E78.00 PURE HYPERCHOLESTEROLEMIA, UNSPECIFIED 05/29/2017 LINUS JOLLEY DIANA Ot E83.42 HYPOMAGNESEMIA 05/29/2017 LINUS JOLLEY DIANA Ot E87.6 HYPOKALEMIA 05/29/2017 PIERCE BARRIGA DOI Ot G47.33 OBSTRUCTIVE SLEEP APNEA (ADULT) (PEDIATR 05/29/2017 LINUS JOLLEY DIANA Ot I10 ESSENTIAL (PRIMARY) HYPERTENSION 05/29/2017 PIERCE BARRIGA DOI Ot K72.00 ACUTE AND SUBACUTE HEPATIC FAILURE WITHO 05/29/2017 DIANA BARRIGA DO Ot K74.60 UNSPECIFIED CIRRHOSIS OF LIVER 05/29/2017 DIANA BARRIGA DO Ot Z87.891 PERSONAL HISTORY OF NICOTINE DEPENDENCE 09/29/2017 Ot R16.1 SPLENOMEGALY , NOT ELSEWHERE CLASSIFIED 09/29/2017 Ot R74.8 ABNORMAL LEVELS OF OTHER SERUM ENZYMES 10/04/2017 SPENSER RIOS MD Ot K74.69 OTHER CIRRHOSIS OF LIVER 10/04/2017 SPENSER RIOS MD Ot R16.1 SPLENOMEGALY, NOT ELSEWHERE CLASSIFIED 10/04/2017 SPENSER RIOS MD Ot K74.69 OTHER CIRRHOSIS OF LIVER 10/04/2017 SPENSER RIOS MD Ot R16.1 SPLENOMEGALY, NOT ELSEWHERE CLASSIFIED 10/14/2017 Ot R16.1 SPLENOMEGALY , NOT ELSEWHERE CLASSIFIED 10/14/2017 Ot R74.8 ABNORMAL LEVELS OF OTHER SERUM ENZYMES 10/14/2017 SPENSER RIOS MD Ot K74.69 OTHER CIRRHOSIS OF LIVER 10/14/2017 SPENSER RIOS MD Ot R16.1 SPLENOMEGALY, NOT ELSEWHERE CLASSIFIED 10/18/2017 Ot R16.1 SPLENOMEGALY , NOT ELSEWHERE CLASSIFIED 10/18/2017 Ot R74.8 ABNORMAL LEVELS OF OTHER SERUM ENZYMES 10/18/2017 SPENSER RIOS MD Ot K74.69 OTHER CIRRHOSIS OF LIVER 10/18/2017 SPENSER RIOS MD Ot R16.1 SPLENOMEGALY, NOT ELSEWHERE CLASSIFIED 10/21/2017 Ot R16.1 SPLENOMEGALY , NOT ELSEWHERE CLASSIFIED 10/21/2017 Ot R74.8 ABNORMAL LEVELS OF OTHER SERUM ENZYMES 10/21/2017 SPENSER RIOS MD Ot K74.69 OTHER CIRRHOSIS OF LIVER 10/21/2017 SPENSER RIOS MD Ot R16.1 SPLENOMEGALY, NOT ELSEWHERE CLASSIFIED 11/17/2017 Ot R16.1 SPLENOMEGALY , NOT ELSEWHERE CLASSIFIED 11/17/2017 Ot R74.8 ABNORMAL LEVELS OF OTHER SERUM ENZYMES 11/17/2017 SPENSER RIOS MD Ot K74.69 OTHER CIRRHOSIS OF LIVER 11/17/2017 SPENSER RIOS MD Ot R16.1 SPLENOMEGALY, NOT ELSEWHERE CLASSIFIED 03/08/2018 Ot R16.1 SPLENOMEGALY , NOT ELSEWHERE CLASSIFIED 03/08/2018 Ot R74.8 ABNORMAL LEVELS OF OTHER SERUM ENZYMES 03/08/2018 SPENSER RIOS MD Ot K74.69 OTHER CIRRHOSIS OF LIVER 03/08/2018 SPENSER RIOS MD Ot R16.1 SPLENOMEGALY, NOT ELSEWHERE CLASSIFIED 04/03/2018 OZIEL GREENBERG APRN Ot K74.60 UNSPECIFIED CIRRHOSIS OF LIVER 04/03/2018 OZIEL GREENBERG APRN Ot K76.6 PORTAL HYPERTENSION 04/03/2018 OZIEL GREENBERG APRN Ot N28.1 CYST OF KIDNEY, ACQUIRED 04/03/2018 OZIEL GREENBERG APRN Ot R16.1 SPLENOMEGALY, NOT ELSEWHERE CLASSIFIED 04/03/2018 OZIEL GREENBERG APRN Ot Z96.89 PRESENCE OF OTHER SPECIFIED FUNCTIONAL I 07/03/2018 Ot R16.1 SPLENOMEGALY , NOT ELSEWHERE CLASSIFIED 07/03/2018 Ot R74.8 ABNORMAL LEVELS OF OTHER SERUM ENZYMES 07/03/2018 BLANCA TRUJILLO, SPENSER Garcia Ot K74.69 OTHER CIRRHOSIS OF LIVER 07/03/2018 SPENSER RIOS MD Ot R16.1 SPLENOMEGALY, NOT ELSEWHERE CLASSIFIED 07/03/2018 OZIEL GREENBERG APRN Ot K74.60 UNSPECIFIED CIRRHOSIS OF LIVER 07/03/2018 OZIEL GREENBERG APRN Ot K76.6 PORTAL HYPERTENSION 07/03/2018 OZIEL GREENBERG APRN Ot N28.1 CYST OF KIDNEY, ACQUIRED 07/03/2018 OZIEL GREENBERG APRN Ot R16.1 SPLENOMEGALY, NOT ELSEWHERE CLASSIFIED 07/03/2018 OZIEL GREENBERG APRN Ot Z96.89 PRESENCE OF OTHER SPECIFIED FUNCTIONAL I 07/03/2018 LINUS JOLLEY DIANA Ot E78.00 PURE HYPERCHOLESTEROLEMIA, UNSPECIFIED 07/03/2018 LINUS JOLLEY DIANA Ot E86.0 DEHYDRATION 07/03/2018 PIERCE BARRIGA DOI Ot F41.9 ANXIETY DISORDER, UNSPECIFIED 07/03/2018 LINUS JOLLEY DIANA Ot G47.33 OBSTRUCTIVE SLEEP APNEA (ADULT) (PEDIATR 07/03/2018 LINUS JOLLEY DIANA Ot I10 ESSENTIAL (PRIMARY) HYPERTENSION 07/03/2018 PIERCE BARRIGA DOI Ot K51.919 ULCERATIVE COLITIS, UNSP WITH UNSPECIFIE 07/03/2018 LINUS JOLLEY DIANA Ot K52.9 NONINFECTIVE GASTROENTERITIS AND COLITIS 07/03/2018 LINUS JOLLEY DIANA Ot K70.30 ALCOHOLIC CIRRHOSIS OF LIVER WITHOUT ASC 07/03/2018 LINUS JOLLEY DIANA Ot K70.40 ALCOHOLIC HEPATIC FAILURE WITHOUT COMA 07/03/2018 PIERCE BARRIGA DOI Ot L40.9 PSORIASIS, UNSPECIFIED 07/03/2018 PIERCE BARRIGA DOI Ot 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 07/03/2018 PIERCE BARRIGA DOI Ot Z87.891 PERSONAL HISTORY OF NICOTINE DEPENDENCE 07/03/2018 BARRIGA DO, DIANA Ot E78.00 PURE HYPERCHOLESTEROLEMIA, UNSPECIFIED 07/03/2018 BARRIGA DO, DIANA Ot E86.0 DEHYDRATION 07/03/2018 LINUS DO DIANA Ot F41.9 ANXIETY DISORDER, UNSPECIFIED 07/03/2018 LINUS DO DIANA Ot G47.33 OBSTRUCTIVE SLEEP APNEA (ADULT) (PEDIATR 07/03/2018 BARRIGA DO DIANA Ot I10 ESSENTIAL (PRIMARY) HYPERTENSION 07/03/2018 LINUS DO DIANA Ot K51.919 ULCERATIVE COLITIS, UNSP WITH UNSPECIFIE 07/03/2018 LINUS DO DIANA Ot K52.9 NONINFECTIVE GASTROENTERITIS AND COLITIS 07/03/2018 LINUS DO DIANA Ot K70.30 ALCOHOLIC CIRRHOSIS OF LIVER WITHOUT ASC 07/03/2018 LINUS DO DIANA Ot K70.40 ALCOHOLIC HEPATIC FAILURE WITHOUT COMA 07/03/2018 PIERCE BARRIGA DOI Ot L40.9 PSORIASIS, UNSPECIFIED 07/03/2018 LINUS JOLLEY DIANA Ot Z79.899 OTHER CORRECTION (CURRENT) DRUG THERAPY 07/03/2018 LINUS JOLLEY DIANA Ot Z87.891 PERSONAL HISTORY OF NICOTINE DEPENDENCE 07/10/2018 LINUS JOLLEY DIANA Ot E78.00 PURE HYPERCHOLESTEROLEMIA, UNSPECIFIED 07/10/2018 LINUS JOLLEY DIANA Ot E86.0 DEHYDRATION 07/10/2018 LINUS JOLLEY DIANA Ot F41.9 ANXIETY DISORDER, UNSPECIFIED 07/10/2018 LINUS JOLLEY DIANA Ot G47.33 OBSTRUCTIVE SLEEP APNEA (ADULT) (PEDIATR 07/10/2018 LINUS DO DIANA Ot I10 ESSENTIAL (PRIMARY) HYPERTENSION 07/10/2018 LINUS JOLLEY DIANA Ot K51.919 ULCERATIVE COLITIS, UNSP WITH UNSPECIFIE 07/10/2018 LINUS DO DIANA Ot K52.9 NONINFECTIVE GASTROENTERITIS AND COLITIS 07/10/2018 LINUS JOLLEY DIANA Ot K70.30 ALCOHOLIC CIRRHOSIS OF LIVER WITHOUT ASC 07/10/2018 LINUS JOLLEY DIANA Ot K70.40 ALCOHOLIC HEPATIC FAILURE WITHOUT COMA 07/10/2018 LINUS JOLLEY DIANA Ot L40.9 PSORIASIS, UNSPECIFIED 07/10/2018 LINUS JOLLEY DIANA Ot Z79.899 OTHER CORRECTION (CURRENT) DRUG THERAPY 07/10/2018 LINUS JOLLEY DIANA Ot Z87.891 PERSONAL HISTORY OF NICOTINE DEPENDENCE 08/07/2018 BERNICE MOSER DO Ot Z01.818 ENCOUNTER FOR OTHER PREPROCEDURAL EXAMIN 08/09/2018 Ot R16.1 SPLENOMEGALY , NOT ELSEWHERE CLASSIFIED 08/09/2018 Ot R74.8 ABNORMAL LEVELS OF OTHER SERUM ENZYMES 08/09/2018 BLANCA TRUJILLO, SPENSER Garcia Ot K74.69 OTHER CIRRHOSIS OF LIVER 08/09/2018 BLANCA TRUJILLO, SPENSER Garcia Ot R16.1 SPLENOMEGALY, NOT ELSEWHERE CLASSIFIED 08/09/2018 DIONICIO OZIEL Garcia PARRISH Ot K74.60 UNSPECIFIED CIRRHOSIS OF LIVER 08/09/2018 DIONICIO OZIEL Garcia APRN Ot K76.6 PORTAL HYPERTENSION 08/09/2018 DIONICIO OZIEL Garcia PARRISH Ot N28.1 CYST OF KIDNEY, ACQUIRED 08/09/2018 DIONICIO, OZIEL Garcia APRN Ot R16.1 SPLENOMEGALY, NOT ELSEWHERE CLASSIFIED 08/09/2018 DOINICIO OZIEL Garcia APRN Ot Z96.89 PRESENCE OF OTHER SPECIFIED FUNCTIONAL I 08/09/2018 BERNICE MOSER DO Ot Z01.818 ENCOUNTER FOR OTHER PREPROCEDURAL EXAMIN Procedures There is no data. Results Test [...] Ammonia - 05/26/17 20:42 Ammonia 107 umol/L - Whole blood basic metabolic panel - 05/27/17 [...] - 05/28/17 05:30 Ammonia 63 umol/L 11-32 Magnesium - 05/28/17 05:30 Magnesium 1.6 mg/dL 1.8-2.4 Complete blood count (CBC) with automated white blood cell (WBC) differential - 05/29/17 05:30 Blood leukocytes automated count (number/volume) 6.1 10*3/uL 4.3-11.0 Blood erythrocytes automated count (number/volume) 3.89 10*6/uL 4.35-5.85 Venous blood hemoglobin measurement (mass/volume) 12.1 g/dL 13.3-17.7 Blood hematocrit (volume fraction) 34 % 40-54 Automated erythrocyte mean corpuscular volume 87 [foz_us] 80-99 Automated erythrocyte mean corpuscular hemoglobin (mass per erythrocyte) 31 pg 25-34 Automated erythrocyte mean corpuscular hemoglobin concentration measurement ( mass/volume) 36 g/dL 32-36 Automated erythrocyte distribution width ratio 13.6 % 10.0-14.5 Automated blood platelet count (count/volume) 121 10*3/uL 130-400 Automated blood platelet mean volume measurement 10.5 [foz_us] 7.4-10.4 Automated blood neutrophils/100 leukocytes 73 % 42-75 Automated blood lymphocytes/100 leukocytes 16 % 12-44 Blood monocytes/100 leukocytes 8 % 0-12 Automated blood eosinophils/100 leukocytes 2 % 0-10 Automated blood basophils/100 leukocytes 1 % 0-10 Blood neutrophils automated count (number/volume) 4.5 10*3 1.8-7.8 Blood lymphocytes automated count (number/volume) 1.0 10*3 1.0-4.0 Blood monocytes automated count (number/volume) 0.5 10*3 0.0-1.0 Automated eosinophil count 0.1 10*3/uL 0.0-0.3 Automated blood basophil count (count/volume) 0.1 10*3/uL 0.0-0.1 Comprehensive metabolic panel - 05/29/17 05:30 Serum or plasma sodium measurement (moles/volume) 140 mmol/L 135-145 Serum or plasma potassium measurement (moles/volume) 3.3 mmol/L 3.6-5.0 Serum or plasma chloride measurement (moles/volume) 111 mmol/L 98-107 Carbon dioxide 21 mmol/L 21-32 Serum or plasma anion gap determination (moles/volume) 8 mmol/L 5-14 Serum or plasma urea nitrogen measurement (mass/volume) 7 mg/dL 7-18 Serum or plasma creatinine measurement (mass/volume) 0.71 mg/dL 0.60-1.30 Serum or plasma urea nitrogen/creatinine mass ratio 10 NRG Serum or plasma creatinine measurement with calculation of estimated glomerular filtration rate > NRG Serum or plasma glucose measurement (mass/volume) 102 mg/dL 70-105 Serum or plasma calcium measurement (mass/volume) 7.8 mg/dL 8.5-10.1 Serum or plasma total bilirubin measurement (mass/volume) 1.7 mg/dL 0.1-1.0 Serum or plasma alkaline phosphatase measurement (enzymatic activity/volume) 286 U/L 40-136 Serum or plasma aspartate aminotransferase measurement (enzymatic activity/ volume) 62 U/L 5-34 Serum or plasma alanine aminotransferase measurement (enzymatic activity/volume ) 30 U/L 0-55 Serum or plasma protein measurement (mass/volume) 5.0 g/dL 6.4-8.2 Serum or plasma albumin measurement (mass/volume) 2.6 g/dL 3.2-4.5 Magnesium - 05/29/17 05:30 Magnesium 1.6 mg/dL 1.8-2.4 Ammonia - 05/29/17 10:30 Ammonia 29 umol/L 11-32 Acute hepatitis panel - 05/29/17 10:30 Confirmatory quantitative serum or plasma hepatitis B virus surface antigen measurement Non-Reactive Non-Reactive Hepatitis A virus IgM antibody assay Non-Reactive Non- Reactive Hepatitis B virus core IgM antibody assay Non-Reactive Non-Reactive Serum hepatitis C virus antibody detection Non-Reactive Non-Reactive Comprehensive metabolic panel - 04/02/18 09:10 Serum or plasma sodium measurement (moles/volume) 140 mmol/L 135-145 Serum or plasma potassium measurement (moles/volume) 4.0 mmol/L 3.6-5.0 Serum or plasma chloride measurement (moles/volume) 107 mmol/L 98-107 Carbon dioxide 24 mmol/L 21-32 Serum or plasma anion gap determination (moles/volume) 9 mmol/L 5-14 Serum or plasma urea nitrogen measurement (mass/volume) 13 mg/dL 7-18 Serum or plasma creatinine measurement (mass/volume) 0.92 mg/dL 0.60-1.30 Serum or plasma urea nitrogen/creatinine mass ratio 14 NRG Serum or plasma creatinine measurement with calculation of estimated glomerular filtration rate > NRG Serum or plasma glucose measurement (mass/volume) 97 mg/dL 70-105 Serum or plasma calcium measurement (mass/volume) 9.3 mg/dL 8.5-10.1 Serum or plasma total bilirubin measurement (mass/volume) 2.2 mg/dL 0.1-1.0 Serum or plasma alkaline phosphatase measurement (enzymatic activity/volume) 280 U/L 40-136 Serum or plasma aspartate aminotransferase measurement (enzymatic activity/ volume) 76 U/L 5-34 Serum or plasma alanine aminotransferase measurement (enzymatic activity/volume ) 44 U/L 0-55 Serum or plasma protein measurement (mass/volume) 6.6 g/dL 6.4-8.2 Serum or plasma albumin measurement (mass/volume) 3.8 g/dL 3.2-4.5 CALCIUM CORRECTED 9.5 mg/dL 8.5-10.1 Serum or plasma [id number] marker measurement (mass/volume) - 09:10 Serum or plasma [id number].[id number] marker measurement (mass/volume) 3.2 % 0.0-8.8 CA 19-9 - 04/02/18 09:10 CA 19-9 C 19 u[iU]/mL 0-37 Complete blood count (CBC) with automated white blood cell (WBC) differential - 07/02/18 15:36 Blood leukocytes automated count (number/volume) 5.1 10*3/uL 4.3-11.0 Blood erythrocytes automated count (number/volume) 4.13 10*6/uL 4.35-5.85 Venous blood hemoglobin measurement (mass/volume) 12.9 g/dL 13.3-17.7 Blood hematocrit (volume fraction) 37 % 40-54 Automated erythrocyte mean corpuscular volume 89 [foz_us] 80-99 Automated erythrocyte mean corpuscular hemoglobin (mass per erythrocyte) 31 pg 25-34 Automated erythrocyte mean corpuscular hemoglobin concentration measurement ( mass/volume) 35 g/dL 32-36 Automated erythrocyte distribution width ratio 14.5 % 10.0-14.5 Automated blood platelet count (count/volume) 146 10*3/uL 130-400 Automated blood platelet mean volume measurement 10.4 [foz_us] 7.4-10.4 Automated blood neutrophils/100 leukocytes 66 % 42-75 Automated blood lymphocytes/100 leukocytes 18 % 12-44 Blood monocytes/100 leukocytes 14 % 0-12 Automated blood eosinophils/100 leukocytes 2 % 0-10 Automated blood basophils/100 leukocytes 1 % 0-10 Blood neutrophils automated count (number/volume) 3.4 10*3 1.8-7.8 Blood lymphocytes automated count (number/volume) 0.9 10*3 1.0-4.0 Blood monocytes automated count (number/volume) 0.7 10*3 0.0-1.0 Automated eosinophil count 0.1 10*3/uL 0.0-0.3 Automated blood basophil count (count/volume) 0.1 10*3/uL 0.0-0.1 PT panel in platelet poor plasma by coagulation assay - 07/02/18 15:36 Prothrombin time (PT) in platelet poor plasma by coagulation assay 14.3 s 12.2-14.7 INR in platelet poor plasma or blood by coagulation assay 1.1 0.8-1.4 Blood lactic acid measurement (moles/volume) - 07/02/18 15:36 Blood lactic acid measurement (moles/volume) 1.20 mmol/L 0.50-2.00 Comprehensive metabolic panel - 07/02/18 15:36 Serum or plasma sodium measurement (moles/volume) 137 mmol/L 135-145 Serum or plasma potassium measurement (moles/volume) 4.0 mmol/L 3.6-5.0 Serum or plasma chloride measurement (moles/volume) 104 mmol/L 98-107 Carbon dioxide 25 mmol/L 21-32 Serum or plasma anion gap determination (moles/volume) 8 mmol/L 5-14 Serum or plasma urea nitrogen measurement (mass/volume) 11 mg/dL 7-18 Serum or plasma creatinine measurement (mass/volume) 0.88 mg/dL 0.60-1.30 Serum or plasma urea nitrogen/creatinine mass ratio 13 NRG Serum or plasma creatinine measurement with calculation of estimated glomerular filtration rate > NRG Serum or plasma glucose measurement (mass/volume) 74 mg/dL 70-105 Serum or plasma calcium measurement (mass/volume) 9.2 mg/dL 8.5-10.1 Serum or plasma total bilirubin measurement (mass/volume) 2.3 mg/dL 0.1-1.0 Serum or plasma alkaline phosphatase measurement (enzymatic activity/volume) 259 U/L 40-136 Serum or plasma aspartate aminotransferase measurement (enzymatic activity/ volume) 59 U/L 5-34 Serum or plasma alanine aminotransferase measurement (enzymatic activity/volume ) 28 U/L 0-55 Serum or plasma protein measurement (mass/volume) 6.6 g/dL 6.4-8.2 Serum or plasma albumin measurement (mass/volume) 3.5 g/dL 3.2-4.5 CALCIUM CORRECTED 9.6 mg/dL 8.5-10.1 Serum or plasma conjugated bilirubin+indirect measurement (mass/volume) - 07/02 15:36 Bilirubin direct 1.2 mg/dL 0.0-0.3 Serum or plasma indirect bilirubin measurement (mass/volume) 1.1 mg/ dL NRG Serum or plasma troponin i.cardiac measurement (mass/volume) - 07/02/18 15:36 Serum or plasma troponin i.cardiac measurement (mass/volume) < ng/ mL <0.028 Ammonia - 07/02/18 15:36 Ammonia 77 umol/L 11-32 THYROID STIMULATING HORMONE - 07/02/18 15:36 THYROID STIMULATING HORMONE 2.39 u[iU]/mL 0.35-4.94 Serum or plasma lithium measurement (moles/volume) - 07/02/18 15:36 BNP level 97.5 pg/mL <100.0 Bacterial blood culture - 07/02/18 15:36 Bacterial blood culture NG NRG Bacterial blood culture - 07/02/18 15:43 Bacterial blood culture NG NRG Capillary blood glucose measurement by glucometer (mass/volume) - 07/02/18 16: 41 Capillary blood glucose measurement by glucometer (mass/volume) 69 mg/dL 70-110 Complete urinalysis with reflex to culture - 07/02/18 19:30 Urine color determination BROWN NRG Urine clarity determination CLEAR NRG Urine pH measurement by test strip 7 5-9 Specific gravity of urine by test strip 1.010 1.016- 1.022 Urine protein assay by test strip, semi-quantitative NEGATIVE NEGATIVE Urine glucose detection by automated test strip NEGATIVE NEGATIVE Erythrocytes detection in urine sediment by light microscopy NEGATIVE NEGATIVE Urine ketones detection by automated test strip NEGATIVE NEGATIVE Urine nitrite detection by test strip NEGATIVE NEGATIVE Urine total bilirubin detection by test strip NEGATIVE NEGATIVE Urine urobilinogen measurement by automated test strip (mass/volume) 1 mg/dL NORMAL Urine leukocyte esterase detection by dipstick 1+ NEGATIVE Automated urine sediment erythrocyte count by microscopy (number/high power field) RARE NRG Automated urine sediment leukocyte count by microscopy (number/high power field ) [HPF] NRG Bacteria detection in urine sediment by light microscopy NEGATIVE NRG Crystals detection in urine sediment by light microscopy NONE NRG Casts detection in urine sediment by light microscopy NONE NRG Mucus detection in urine sediment by light microscopy MODERATE NRG Complete urinalysis with reflex to culture NO NRG Capillary blood glucose measurement by glucometer (mass/volume) - 07/02/18 21: 49 Capillary blood glucose measurement by glucometer (mass/volume) 143 mg/dL 70-110 Complete blood count (CBC) with automated white blood cell (WBC) differential - 07/03/18 03:50 Blood leukocytes automated count (number/volume) 4.8 10*3/uL 4.3-11.0 Blood erythrocytes automated count (number/volume) 3.78 10*6/uL 4.35-5.85 Venous blood hemoglobin measurement (mass/volume) 11.8 g/dL 13.3-17.7 Blood hematocrit (volume fraction) 34 % 40-54 Automated erythrocyte mean corpuscular volume 89 [foz_us] 80-99 Automated erythrocyte mean corpuscular hemoglobin (mass per erythrocyte) 31 pg 25-34 Automated erythrocyte mean corpuscular hemoglobin concentration measurement ( mass/volume) 35 g/dL 32-36 Automated erythrocyte distribution width ratio 14.3 % 10.0-14.5 Automated blood platelet count (count/volume) 144 10*3/uL 130-400 Automated blood platelet mean volume measurement 10.0 [foz_us] 7.4-10.4 Automated blood neutrophils/100 leukocytes 64 % 42-75 Automated blood lymphocytes/100 leukocytes 22 % 12-44 Blood monocytes/100 leukocytes 12 % 0-12 Automated blood eosinophils/100 leukocytes 2 % 0-10 Automated blood basophils/100 leukocytes 1 % 0-10 Blood neutrophils automated count (number/volume) 3.1 10*3 1.8-7.8 Blood lymphocytes automated count (number/volume) 1.0 10*3 1.0-4.0 Blood monocytes automated count (number/volume) 0.6 10*3 0.0-1.0 Automated eosinophil count 0.1 10*3/uL 0.0-0.3 Automated blood basophil count (count/volume) 0.0 10*3/uL 0.0-0.1 Comprehensive metabolic panel - 07/03/18 03:50 Serum or plasma sodium measurement (moles/volume) 137 mmol/L 135-145 Serum or plasma potassium measurement (moles/volume) 4.2 mmol/L 3.6-5.0 Serum or plasma chloride measurement (moles/volume) 106 mmol/L 98-107 Carbon dioxide 23 mmol/L 21-32 Serum or plasma anion gap determination (moles/volume) 8 mmol/L 5-14 Serum or plasma urea nitrogen measurement (mass/volume) 11 mg/dL 7-18 Serum or plasma creatinine measurement (mass/volume) 0.83 mg/dL 0.60-1.30 Serum or plasma urea nitrogen/creatinine mass ratio 13 NRG Serum or plasma creatinine measurement with calculation of estimated glomerular filtration rate > NRG Serum or plasma glucose measurement (mass/volume) 101 mg/dL 70-105 Serum or plasma calcium measurement (mass/volume) 8.8 mg/dL 8.5-10.1 Serum or plasma total bilirubin measurement (mass/volume) 2.1 mg/dL 0.1-1.0 Serum or plasma alkaline phosphatase measurement (enzymatic activity/volume) 245 U/L 40-136 Serum or plasma aspartate aminotransferase measurement (enzymatic activity/ volume) 55 U/L 5-34 Serum or plasma alanine aminotransferase measurement (enzymatic activity/volume ) 25 U/L 0-55 Serum or plasma protein measurement (mass/volume) 5.7 g/dL 6.4-8.2 Serum or plasma albumin measurement (mass/volume) 3.1 g/dL 3.2-4.5 CALCIUM CORRECTED 9.5 mg/dL 8.5-10.1 Encounters ACCT No. Visit Date/Time Discharge Status Pt. Type Provider Facility Loc./Unit Complaint [id number] 07/02/2018 15:00:00 07/03/2018 09:45:00 DIS Inpatient BARRIGA DO DIANA [facility] ICU CHRONIC LIVER DISEASE [id number] 04/02/2018 08:56:00 04/02/2018 23:59:59 CLS Outpatient OZIEL GREENBERG APRN [facility] RAD CHRONIC LIVER DISEASE [id number] 10/03/2017 07:41:00 10/03/2017 23:59:59 CLS Outpatient SPENSER RIOS MD [facility] RAD OTHER CIRRHOSIS OF LIVER [id number] 05/26/2017 22:07:00 05/29/2017 11:55:00 DIS Inpatient BARRIGAALYSHA JOLLEY DIANA [facility] 4TH HEPATIC ENCEPHALOPATHY [id number] 05/23/2017 03:52:00 05/25/2017 15:07:00 DIS Inpatient JENN MENDOZA MD [facility] 4TH HEPATIC ENCEPHALOPATHY; UTI [id number] 09/21/2016 09:30:00 09/21/2016 23:59:59 CLS Preadmit BARRIGA DO DIANA [facility] RAD R74.9 ABN SERUM ENZYME LEVEL [id number] 02/01/2016 09:04:00 02/01/2016 12:15:00 DIS Outpatient CORIE BARR MD [facility] HISTORY OF POLYPS [id number] 01/27/2016 05:46:00 01/27/2016 12:45:00 DIS Outpatient CORIE BARR MD [facility] PREOP HISTORY OF POLYPS [id number] 01/01/2013 18:09:00 01/01/2013 23:59:59 CLS Outpatient [id number] 08/09/2018 10:47:00 ACT Outpatient BERNICE MOSER DO [facility] LIPOMAS TO RIGHT UPPER EXTREMITY AND PUBIC AREA [id number] 08/06/2018 06:54:00 ACT Outpatient BERNICE MOSER DO [facility] PREOP LIPOMAS TO RIGHT UPPER EXTREMITY AND PUBIC AREA [id number] 03/15/2016 10:36:00 Document Registration [id number] 02/01/2016 09:03:00 Document Registration [id number] 11/30/2010 05:41:00 Document Registration [id number] 11/25/2010 10:44:00 Document Registration
--- NOTE | 2018-08-09 11:01 | Progress Note-Pre Operative ---
Pre-Operative Progress Note H&P Reviewed The H&P was reviewed, patient examined and no changes noted. 4 lipomas right arm 2 lipomas left arm 1 lipoma pubic area Date Seen by Provider: Aug 09, 2018 Time Seen by Provider: 11: Date H&P Reviewed: Aug 09, 2018 Time H&P Reviewed: 11: Pre-Operative Diagnosis: 4 lipomas right arm, 2 right arm and 1 pubic BERNICE MOSER DO Aug 09, 2018 11:01
[2018-08-09] MEDS ORDERED: LACTATED RINGERS 1,000 ML IV PRN (11:06)
[2018-08-09] MEDS ORDERED: BUP/EPI 0.5% 1:200,000 (SENSORCAINE) 30 ML VIAL ONE (11:09)
[2018-08-09] MEDS ORDERED: LIDOCAINE 1% INJ 20 ML 20 ML VIAL ONE (11:09)
[2018-08-09 11:15] VITALS: BP 161/80
[2018-08-09] MEDS ORDERED: ceFAZolin 2 GM IV Premixed 50 ML IV ONE (11:15)
[2018-08-09] MEDS ORDERED: fentaNYL INJECTION 100 MCG/2 ML AMP ONE (12:05)
[2018-08-09] MEDS ORDERED: proPOfol 200 MG/20 ML (DIPRIVAN) VIAL IV ONE (12:05)
[2018-08-09] MEDS ORDERED: LIDOCAINE PF 2% 5 ML (XYLOCAINE) VIAL ONE ×2 (12:05→12:43)
[2018-08-09] MEDS ORDERED: MIDAZOLAM 2 MG/2 ML (VERSED) VIAL ONE (12:05)
[2018-08-09] MEDS ORDERED: ONDANSETRON 4 MG/2 ML (SDV) Z0FRAN ONE (12:43)
[2018-08-09] MEDS ORDERED: DEXAMETHASONE 10 MG/ML (DECADRON) 1 ML VIAL ONE (12:43)
[2018-08-09] MEDS ORDERED: SEVOFLURANE (ULTANE) 15 ML INHAL SOLN ONE ×3 (12:43→13:27)
[2018-08-09] MEDS ORDERED: BACITRACIN OINTMENT 28 GM TUBE ONE (13:06)
--- NOTE | 2018-08-09 13:26 | Progress Note-Post Operative ---
Post-Operative Progess Note Surgeon (s)/Merchandise Executive (s) Surgeon BERNICE MOSER DO Merchandise Executive: na Pre-Operative Diagnosis 4 lipomas right arm, 2 right arm and 1 pubic Post-Operative Diagnosis same Procedure & Operative Findings Date of Procedure 08/09/18 Procedure Performed/Findings excision of lipomas x 7 Anesthesia Type gen Estimated Blood Loss Estimated blood loss (mL): min Specimens/Packing Specimens Removed lipomas x 7 BERNICE MOSER DO Aug 09, 2018 13:26
--- NOTE | 2018-08-09 13:28 | Discharge Inst-Simple/Standard ---
Discharge Inst-Standard Patient Instructions/Follow Up Plan of Care/Instructions/FU: 2 weeks Katelyn Activity as Tolerated: Yes Discharge Diet: Regular Diet Other Inst to Patient Follow up Appt: Make appointment for 2 week. Instructions: May shower in 24 hours, no tub bath or soaking. Use incentive spirometer at home as directed. No Smoking Skin/Wound Care: May remove bandages in 24 hours. Keep areas clean and dry. Symptoms to Report: Appetite Changes, Extremity Discoloration, Numbness/Tingling, Swelling Increased , Bleeding Excessive, Eyesight Changes, Pain Increased, Urine Color Change, Constipation(Persistent), Fever over 101 degree F, Pain/Pressure in chest, Urinating Difficulty, Cough Up/Vomit Blood, Heart Beat Irreg/Pounding, Pain/ Pressure in jaw, Vaginal Bleeding Increase, Cramps in feet or legs, Lightheadedness, Pain/Pressure in shoulder, Diarrhea(Persistent), Memory Changes Suddenly, Questions/Concerns, Weight gain consecutive days, Dizziness/ Fainting, Nausea/Vomiting, Shortness of Breath, Weight gain over 2 pounds If questions or concerns contact your physician Or seek help at emergency department. BERNICE MOSER DO Aug 09, 2018 13:28
[2018-08-09] MEDS ORDERED: morphine INJ 10 MG/ML 1ML (SYR OR VIAL) IVP ONE (13:30)
[2018-08-09] MEDS ORDERED: ONDANSETRON 4 MG/2 ML (SDV) Z0FRAN IVP PRN (13:30)
[2018-08-09 14:35] VITALS: BP 167/84
[2018-08-09 15:05] VITALS: BP 152/72
[2018-08-09 15:35] VITALS: BP 167/83
[2018-08-09 16:10] VITALS: BP 167/83
--- NOTE | 2018-08-10 06:12 | OPERATIVE REPORT ---
DATE OF SERVICE: 08/09/2018 PREOPERATIVE DIAGNOSIS: Multiple lipomas. POSTOPERATIVE DIAGNOSIS: Multiple lipomas. PROCEDURE PERFORMED: 1. Excision of lipoma of pubic area 3.5 cm x 4.5 cm x 2 cm. 2. Distal right forearm, 2.5 x 1.5 x 0.5. DICTATION ENDS HERE. Job ID: [id number] DocumentID: [id number] Dictated Date: 08/09/2018 21:09:37 Touch Up Edger Date: 08/10/2018 06:11:44 Dictated By: BERNICE MOSER DO
--- NOTE | 2018-08-10 06:36 | OPERATIVE REPORT ---
DATE OF SERVICE: 08/09/2018 PREOPERATIVE DIAGNOSIS: Multiple lipomas. POSTOPERATIVE DIAGNOSIS: Multiple lipomas. PROCEDURE: Excision of lipomas. 1. Pubic area 3.5 x 4.5 x 2 cm. 2. Right arm distal left side of the forearm, 2.5 x 1.5 x 0.5 cm. 3. Right arm distal right side forearm 1.75 x 2 x 0.4 cm. 4. Proximal right forearm 3.5 x 1.5 x 0.75 cm. 5. Right upper arm 6.5 x 5.5 x 2.25 cm. 6. Left arm proximal 6.5 x 4.5 x 1.5 cm. 7. Distal left arm 3.25 x 4 x 1 cm. SURGEON: Bernice Zepeda DO. ANESTHESIA: General. ESTIMATED BLOOD LOSS: Minimal. COMPLICATIONS: None. INDICATIONS: The patient is a 53-year-old male with multiple lipomas. He had 7 in total. He wished to have it removed. They are causing some discomfort and have increased in size. The patient understands risks and benefits of procedure and wished to proceed with procedure. Consent was signed on the chart. DESCRIPTION OF PROCEDURE: The patient was taken to the operating suite, was prepped and draped in sterile fashion. A timeout was performed. The lipoma in the pubic area was prepped and draped in sterile fashion. Local anesthetic was infiltrated around the lipoma. A 15 blade scalpel was used to make a skin incision and the lipoma was removed that was in the subcutaneous layer. Hemostasis was achieved. The skin was then reapproximated using naveed. The right arm was then prepped and draped in a sterile fashion and the forearm on the left side and along the right side where in close proximity one incision was made. The skin was opened and the subcutaneous tissues were then begun to be divided until the lipomas were able to be dissected around with both blunt and cautery dissection. These were both removed in their entirety. The wound was irrigated with irrigation and then hemostasis was achieved. The skin was then closed using naveed. Attention was then made to the proximal right forearm. Local anesthetic was infiltrated. A 15 blade scalpel was used to make a skin incision and cautery was used to dissect around the lipoma until it was removed. Irrigation was placed in the wound and suctioned. Hemostasis was achieved. Skin was then closed using naveed. Attention was then placed to the right upper arm where local anesthetic was infiltrated. A 15 blade scalpel was used to make a skin incision. The lipoma and subcutaneous tissue was then dissected around and removed. The wound was irrigated with copious amounts of irrigation. Hemostasis was achieved. Skin was closed with naveed. The left arm was then prepped and draped in sterile fashion. The proximal lipoma was then anesthetized. A 15 blade was used to make a skin incision and the lipoma was removed through the subcutaneous tissue with both blunt and cautery dissection. Wound was irrigated with copious amounts of irrigation and suction. Hemostasis was achieved. Skin was then closed using naveed. The distal left arm lipoma had local anesthetic infiltrated around the lipoma. A 15 blade scalpel was used to make a skin incision. The lipoma was dissected around in the subcutaneous tissue layer until removed. Hemostasis was achieved. Wound was irrigated and suctioned. Skin was then closed using naveed. All lipomas were within the subcutaneous layer. See procedure for dimensions. After all those removed, they were washed and dried and a sterile bandage was applied. The patient tolerated procedure well without any complications. He was taken to the recovery room in stable condition. RECOMMENDATIONS: The patient will follow up in 12 to 14 days for staple removal. If he has any issues, he should be seen at that time. Job ID: [id number] DocumentID: [id number] Dictated Date: 08/09/2018 21:35:26 Director Decision Support Date: 08/10/2018 06:35:28 Dictated By: BERNICE ZEPEDA DO
== END 2018-08-09 16:10 | disposition home or self-care (01) ==
LOC: SDC 10:47
PROVIDERS: ATTEND Surgery
DX: D17.1 Benign lipomatous neoplasm of skin and subcutaneous tissue of trunk (principal); D17.21 Benign lipomatous neoplasm of skin and subcutaneous tissue of right arm; D17.22 Benign lipomatous neoplasm of skin and subcutaneous tissue of left arm; I10 Essential (primary) hypertension; K74.60 Unspecified cirrhosis of liver; K51.90 Ulcerative colitis, unspecified, without complications; Z87.891 Personal history of nicotine dependence; Z79.899 Other long term (current) drug therapy
CPT/HCPCS: 87081; 88304

== ENCOUNTER 2019-02-20 15:40 | Outpatient (CLI) | payer OTHER ==
[~2019-02-20] VITALS: Ht 177 cm; Wt 129.5 kg
[~2019-02-20 15:40] MED LIST changes: +BISO1TAB38 PO
== END 2019-02-20 15:52 | disposition home or self-care (01) ==
LOC: PREOP 15:40
PROVIDERS: ATTEND Surgery
DX: Z01.818 Encounter for other preprocedural examination (principal)

== ENCOUNTER 2019-02-26 10:40 | Day surgery (SDC) | payer OTHER ==
[~2019-02-26] VITALS: Ht 182.9 cm; Wt 129.5 kg
[2019-02-26] MEDS ORDERED: LACTATED RINGERS 1,000 ML IV STA (10:45)
[2019-02-26 11:00] VITALS: BP 167/90
--- NOTE | 2019-02-26 11:12 | Progress Note-Pre Operative ---
Pre-Operative Progress Note H&P Reviewed The H&P was reviewed, patient examined and no changes noted. Date Seen by Provider: Feb 26, 2019 Time Seen by Provider: 11:11 Date H&P Reviewed: Feb 26, 2019 Time H&P Reviewed: 11:12 Pre-Operative Diagnosis: ulcerative colitis, blood in stool BERNICE MOSER DO Feb 26, 2019 11:12 POS
[2019-02-26] MEDS ORDERED: MIDAZOLAM 2 MG/2 ML (VERSED) VIAL ONE (11:13)
[2019-02-26] MEDS ORDERED: proPOfol 200 MG/20 ML (DIPRIVAN) VIAL IV ONE ×2 (11:13→11:55)
[2019-02-26 12:30] VITALS: BP 99/58
[2019-02-26 12:35] VITALS: BP 111/67
[2019-02-26 12:40] VITALS: BP 111/67
--- NOTE | 2019-02-26 13:22 | Anesthesia-General Post-Op ---
MAC Patient Condition Mental Status/LOC: Same as Preop Cardiovascular: Satisfactory Nausea/Vomiting: Absent Respiratory: Satisfactory Pain: Controlled Complications: Absent Post Op Complications Complications None Follow Up Care/Instructions Patient Instructions None needed. Anesthesiology Discharge Order Discharge Order Patient is doing well, no complaints, stable vital signs, no apparent adverse anesthesia problems. No complications reported per nursing. FLACO DIMAS CRNA Feb 26, 2019 13:22 POS
[2019-02-26 13:27] VITALS: BP 141/72
--- NOTE | 2019-02-26 13:27 | Progress Note-Post Operative ---
Post-Operative Progess Note Surgeon (s)/Mutual Fund Manager (s) Surgeon BERNICE MOSER DO Mutual Fund Manager: na Pre-Operative Diagnosis ulcerative colitis, blood in stool Post-Operative Diagnosis external hemorroids, normal colon Procedure & Operative Findings Date of Procedure 02/26/19 Procedure Performed/Findings colonoscopy Anesthesia Type per mda Estimated Blood Loss Estimated blood loss (mL): none Specimens/Packing Specimens Removed na BERNICE MOSER DO Feb 26, 2019 13:27 POS
[2019-02-26] MEDS ORDERED: HYDR30CR71 RC (13:30)
--- NOTE | 2019-02-26 13:31 | Discharge Inst-Simple/Standard ---
Discharge Inst-Standard Discharge Medications New, Converted or Re-Newed RX: Transmitted to Pharmacy Patient Instructions/Follow Up Plan of Care/Instructions/FU: 3 weeks Katelyn Activity as Tolerated: Yes Discharge Diet: Regular Diet BERNICE MOSER DO Feb 26, 2019 13:31 POS
--- NOTE | 2019-02-26 19:54 | OPERATIVE REPORT ---
DATE OF SERVICE: 02/26/2019 PREOPERATIVE DIAGNOSIS: Ulcerative colitis, bright red blood per rectum. POSTOPERATIVE DIAGNOSIS: External hemorrhoids. Normal colon. PROCEDURE: Colonoscopy. SURGEON: Bernice Zepeda DO ANESTHESIA: Per MDA. ESTIMATED BLOOD LOSS: None. COMPLICATIONS: None. INDICATIONS: The patient is a 53-year-old male with ulcerative colitis and had been having bleeding per rectum. He understands risks and benefits of procedure and wished to proceed with procedure. Consent was signed in the chart. DESCRIPTION OF PROCEDURE: The patient was taken to the endoscopy suite, placed in left lateral recumbent position. Timeout was performed. Digital rectal exam was performed. Large external hemorrhoids, one slightly inflamed. No other palpable polyps, masses or ulcerations. Scope was inserted in the rectum, advanced all the way to cecum. The patient was repositioned multiple times due to redundancy of his colon and scope looping, but was able to make it to the cecum. Prep was adequate. Scope was then slowly retracted back. There were no polyps, masses or ulcerations within the cecum, ascending, transverse, descending and sigmoid colon. Once in the rectum, scope was retroflexed noting no other pathology. Scope was returned to its normal position, slowly withdrawn until completely removed. The patient tolerated procedure well without any complications, taken to recovery room in stable condition. RECOMMENDATIONS: The patient will need repeat colonoscopy in approximately 3 years due to ulcerative colitis. We would recommend consideration of excision of some of the external hemorrhoids. We will not do all of them at the same time, but will consider segmental hemorrhoidectomies. We will also use some Anusol-HC cream to see if this causes any improvement. We will have him follow up in 3 weeks. Job ID: [id number] DocumentID: [id number] Dictated Date: 02/26/2019 13:34:33 Coroner Transport Technician Date: 02/26/2019 19:53:39 Dictated By: BERNICE ZEPEDA DO
== END 2019-02-26 13:40 ==
LOC: ENDO 10:40
PROVIDERS: ATTEND Surgery
DX: K51.90 Ulcerative colitis, unspecified, without complications (principal); K62.5 Hemorrhage of anus and rectum; K64.4 Residual hemorrhoidal skin tags; G47.33 Obstructive sleep apnea (adult) (pediatric); K21.9 Gastro-esophageal reflux disease without esophagitis; E66.01 Morbid (severe) obesity due to excess calories; I10 Essential (primary) hypertension; Z87.891 Personal history of nicotine dependence; Z99.89 Dependence on other enabling machines and devices; Z68.41 Body mass index [BMI] 40.0-44.9, adult; Z79.899 Other long term (current) drug therapy; Z82.49 Family history of ischemic heart disease and other diseases of the circulatory system

== ENCOUNTER 2019-05-05 10:33 | Emergency (ER) | payer OTHER ==
[~2019-05-05] VITALS: Ht 180.3 cm; Wt 127.2 kg
[~2019-05-05 10:33] MED LIST changes: +HYDR30CR71 RC
--- NOTE | 2019-05-05 11:18 | ED General ---
General Stated Complaint: CALF PAIN/SWELLING Source of Information: Patient Exam Limitations: No Limitations History of Present Illness Date Seen by Provider: May 05, 2019 Time Seen by Provider: 10:55 Initial Comments Here with report of 3 days of right lower extremity pain at the calf associated with swelling. Denies recent injury, surgery or long trips. States it came out of the blue. Pain worsened and he was worried about blood clots so came in for further evaluation. Does have history of liver dysfunction and disease and has had hepatic encephalopathy. He takes medications to reduce his ammonia level. No recent changes in mental status per he or in the family member with him. Reports taking medicines as directed. He is not on a blood thinner. Does have history of ulcerative colitis and has had some bleeding from the past but not recently. Timing/Duration: 3-4 Days Severity: Moderate Associated Systoms: No Chest Pain, No Cough, No Fever/Chills, No Nausea/Vomiting, No Shortness of Air, No Weakness Allergies and Home Medications Allergies Coded Allergies: No Known Drug Allergies (Verified , 02/20/19) Home Medications Amlodipine Besylate 5 Mg Tablet, 5 MG PO DAILY, (Reported) Bisoprolol Fumarate 10 Mg Tablet, 10 MG PO DAILY, (Reported) Bisoprolol Fumarate/Hctz 1 Each Tablet, 1 EACH PO DAILY, (Reported) Citalopram Hydrobromide 20 Mg Tablet, 20 MG PO DAILY, (Reported) Hydrocortisone 30 Gm Cream..g., 30 GM RC TID Prescribed by: BERNICE MOSER on 02/26/19 1330 Magnesium Oxide 400 Mg Tablet, 400 MG PO BID, (Reported) Omeprazole 40 Mg Capsule.dr, 40 MG PO DAILY, (Reported) Potassium Chloride 10 Meq Tab.er.prt, 10 MEQ PO DAILY, (Reported) Rifaximin 550 Mg Tablet, 550 MG PO BID, (Reported) Spironolactone 25 Mg Tablet, 25 MG PO 0800,1200, (Reported) Sulfadiazine 500 Mg Tablet, 500 MG PO Q6H, (Reported) Sulfasalazine 500 Mg Tablet, 1,000 MG PO BID, (Reported) Patient Home Medication List Home Medication List Reviewed: Yes Review of Systems Review of Systems Constitutional: see HPI; No chills, No fever Respiratory: No cough, No dyspnea on exertion, No short of breath Cardiovascular: No chest pain, No palpitations Musculoskeletal: see HPI; No joint pain; muscle pain Skin: change in color, lesions Psychiatric/Neurological: No Symptoms Reported Past Dgccroq-Wvqpsp-Loooat Hx Past Med/Social Hx: Reviewed Nursing Past Med/Soc Hx Patient Social History Recreational Drug Use: No Smoking Status: Former Smoker Type Used: Cigarettes Former Smoker, Quit: May 01, 2015 2nd Hand Smoke Exposure: No Recent Foreign Travel: No Contact w/Someone Who Travel: No Recent Hopitalizations: No Immunizations Up To Date Date of Influenza Vaccine: May 23, 2017 Seasonal Allergies Seasonal Allergies: No Past Medical History Surgeries: Yes (ELBOW SURGERY, COLONOSCOPY,FATTY TUMORS FROM ARMS) Respiratory: Yes (SLEEP APNEA-CPAP) Sleep Apnea Currently Using CPAP: Yes Cardiac: Yes Hypertension Neurological: No Sexually Transmitted Disease: No HIV/AIDS: No Genitourinary: No Gastrointestinal: Yes Colitis, Gastroesophageal Reflux, Liver Disease/Jaundice, Chronic Diarrhea, Polyps, Cirrhosis Musculoskeletal: No Endocrine: No HEENT: Yes (GLASSES) Loss of Vision: Denies Hearing Impairment: Denies Cancer: No Psychosocial: Yes Anxiety Integumentary: Yes Psoriasis Blood Disorders: No Adverse Reaction/Blood Tranf: No (N/A) Family Medical History Reviewed Nursing Family Hx Cardiovascular disease 19 FATHER Diabetes mellitus 19 FATHER FH: hypertension 19 MOTHER Myocardial infarction 19 FATHER 19 MOTHER G8 BROTHER No Pertinent Family Hx Physical Exam Vital Signs Vital Signs - First Documented 05/05/19 11:00 Temp 36.4 Pulse 78 Resp 16 B/P (MAP) 170/98 (122) Pulse Ox 98 Capillary Refill : Height, Weight, BMI Height: 5'10.00" Weight: 289lbs. 0.0oz. 131.880265qn; 38.71 BMI Method:Stated General Appearance: No Apparent Distress, WD/WN, Obese Neck: Non Tender, Supple Respiratory: Lungs Clear, Normal Breath Sounds Cardiovascular: Regular Rate, Rhythm, No Murmur Gastrointestinal: Non Tender, Soft Back: Normal Inspection, No CVA Tenderness, No Vertebral Tenderness Extremity: Normal Range of Motion, Non Tender, Other (right lower extremity with swelling and pain to the posterior calf.) Neurologic/Psychiatric: Alert, Oriented x3 Skin: Warm/Dry, Other (onychomycosis findings noted to all nails of the right foot. Tinea pedis findings noted to the bottom and lateral aspects of the foot.) Progress/Results/Core Measures Suspected Sepsis SIRS Temperature: Pulse: Respiratory Rate: Laboratory Tests 05/05/19 11:05: White Blood Count 7.1 Blood Pressure / Mean: Laboratory Tests 05/05/19 11:05: Creatinine 0.85, Platelet Count 96L, Total Bilirubin 2.5H 05/05/19 11:34: INR Comment 1.1 Results/Orders Lab Results Laboratory Tests Test 05/05/19 11:05 05/05/19 11:34 Range/Units White Blood Count 7.1 4.3-11.0 10^3/uL Red Blood Count 5.07 4.35-5.85 10^6/uL Hemoglobin 15.0 13.3-17.7 G/DL Hematocrit 43 40-54 % Mean Corpuscular Volume 85 80-99 FL Mean Corpuscular Hemoglobin 30 25-34 PG Mean Corpuscular Hemoglobin Concent 35 32-36 G/DL Red Cell Distribution Width 14.9 H 10.0-14.5 % Platelet Count 96 L 130-400 10^3/uL Mean Platelet Volume 10.8 H 7.4-10.4 FL Neutrophils (%) (Auto) 75 42-75 % Lymphocytes (%) (Auto) 11 L 12-44 % Monocytes (%) (Auto) 12 0-12 % Eosinophils (%) (Auto) 2 0-10 % Basophils (%) (Auto) 1 0-10 % Neutrophils # (Auto) 5.3 1.8-7.8 X 10^3 Lymphocytes # (Auto) 0.8 L 1.0-4.0 X 10^3 Monocytes # (Auto) 0.9 0.0-1.0 X 10^3 Eosinophils # (Auto) 0.1 0.0-0.3 10^3/uL Basophils # (Auto) 0.0 0.0-0.1 10^3/uL D-Dimer 12.73 H 0.00-0.49 UG/ML Sodium Level 137 135-145 MMOL/L Potassium Level 4.1 3.6-5.0 MMOL/L Chloride Level 104 98-107 MMOL/L Carbon Dioxide Level 22 21-32 MMOL/L Anion Gap 11 5-14 MMOL/L Blood Urea Nitrogen 12 7-18 MG/DL Creatinine 0.85 0.60-1.30 MG/DL Estimat Glomerular Filtration Rate > 60 BUN/Creatinine Ratio 14 Glucose Level 107 H 70-105 MG/DL Calcium Level 9.1 8.5-10.1 MG/DL Corrected Calcium 9.5 8.5-10.1 MG/DL Total Bilirubin 2.5 H 0.1-1.0 MG/DL Aspartate Amino Transf (AST/SGOT) 111 H 5-34 U/L Alanine Aminotransferase (ALT/SGPT) 76 H 0-55 U/L Alkaline Phosphatase 259 H 40-136 U/L Ammonia 31 11-32 UMOL/L Total Protein 6.6 6.4-8.2 GM/DL Albumin 3.5 3.2-4.5 GM/DL Prothrombin Time 14.2 12.2-14.7 SEC INR Comment 1.1 0.8-1.4 Activated Partial Thromboplast Time 39 H 24-35 SEC My Orders Orders - TWYLA MORTON MD Ammonia (05/05/19 11:00) Cbc With Automated Diff (05/05/19 11:00) Comprehensive Metabolic Panel (05/05/19 11:00) Fibrin Degradation Products (05/05/19 11:00) Ed Iv/Invasive Line Start (05/05/19 11:00) Protime With Inr (05/05/19 12:13) Partial Thromboplastin Time (05/05/19 12:13) Enoxaparin Injection (Lovenox Injection) (05/05/19 13:15) Medications Given in ED Current Medications Medications Dose Ordered Sig/Vesta Route Start Time Stop Time Status Last Admin Dose Admin Enoxaparin Sodium 120 mg ONCE ONCE SC 05/05/19 13:15 05/05/19 13:16 DC 05/05/19 13:17 120 MG Vital Signs/I&O 05/05/19 11:00 Temp 36.4 Pulse 78 Resp 16 B/P (MAP) 170/98 (122) Pulse Ox 98 Capillary Refill : Progress Note : Progress Note Seen and evaluated. IV, labs ordered. I did have an in-depth discussion regarding onychomycosis and tinea pedis infection that the patient obviously has. He does have history of liver disease and so at this point would be not a candidate for oral agent he will try topical euds-lne-qjpzazm agents for the foot. We will check labs and ammonia level as this does appear to be blood clot to the right lower extremity and we will need to initiate medications pending ultrasound. Ultrasound not available today and will be done tomorrow. Monitor patient. 1312: I discussed the case with Dr. Barriga. There is significant concerns about DVT currently. He is Child-Bacon class B liver dysfunction by my calculation for his liver dysfunction which makes him higher risk for bleeding. We will give Lovenox 120 mg subcutaneous now. There is no beds available cur rently at this hospital so we have arranged for transfer to [facility] and Dr. Barriga has accepted. Pending bed assignment. All of this was discussed with patient and family and they agree to the transfer plan. He is safe enough to transfer via POV. We will leave IV in place and we all agree that it is safe to do this point. We will monitor for adverse reaction for Lovenox prior to discharging the patient. 1328: Bed received. Patient transferred via POV. Departure Impression Primary Impression: Right leg DVT Qualified Codes: I82.401 - Acute embolism and thrombosis of unspecified deep veins of right lower extremity Additional Impression: Liver dysfunction Disposition: 02 XFER SHT-TRM HOSP Condition: Stable Transfer Transfer Reason: Diversion Time Spoke to Accepting Phy: 13:12 Transfer Time: 13:12 Transfer Facility: [place], [place], Dr. Barriga accepting Method of Transfer: Private Vehicle Departure-Patient Inst. Referrals: DIANA BARRIGA DO (PCP/Family) Primary Care Physician TWYLA MORTON MD May 05, 2019 11:18
[2019-05-05 11:21] LABS: BASOPHILS % (AUTO) 1 % (0-10); EOSINOPHILS # (AUTO) 0.1 10^3/uL (0.0-0.3); EOSINOPHILS % (AUTO) 2 % (0-10); HEMATOCRIT 43 % (40-54); LYMPHOCYTES # (AUTO) 0.8 X 10^3 (1.0-4.0); LYMPHOCYTES % (AUTO) 11 % (12-44); MEAN CORPUSCULAR HEMOGLOBIN 30 PG (25-34); MEAN CORPUSCULAR HGB CONC 35 G/DL (32-36); MEAN CORPUSCULAR VOLUME 85 FL (80-99); MEAN PLATELET VOLUME 10.8 FL (7.4-10.4); MONOCYTES # (AUTO) 0.9 X 10^3 (0.0-1.0); MONOCYTES % (AUTO) 12 % (0-12); NEUTROPHILS # (AUTO) 5.3 X 10^3 (1.8-7.8); NEUTROPHILS % (AUTO) 75 % (42-75); PLATELET COUNT 96 10^3/uL (130-400); RED CELL DISTRIBUTION WIDTH 14.9 % (10.0-14.5); WHITE BLOOD COUNT 7.1 10^3/uL (4.3-11.0)
[2019-05-05 11:40] LABS: ALANINE AMINOTRANSFERASE 76 U/L (0-55); ALBUMIN 3.5 GM/DL (3.2-4.5); ALKALINE PHOSPHATASE 259 U/L (40-136); AMMONIA 31 UMOL/L (11-32); BILIRUBIN,TOTAL 2.5 MG/DL (0.1-1.0); BUN/CREATININE RATIO 14; CALCIUM 9.1 MG/DL (8.5-10.1); CARBON DIOXIDE 22 MMOL/L (21-32); CHLORIDE 104 MMOL/L (98-107); CREATININE SERUM 0.85 MG/DL (0.60-1.30); GFR ESTIMATED > 60; GLUCOSE 107 MG/DL (70-105); POTASSIUM 4.1 MMOL/L (3.6-5.0); SODIUM 137 MMOL/L (135-145); TOTAL PROTEIN 6.6 GM/DL (6.4-8.2)
[2019-05-05 12:25] LABS: INR 1.1 (0.8-1.4); PROTHROMBIN TIME PATIENT 14.2 SEC (12.2-14.7)
[2019-05-05] MEDS ORDERED: ENOXAPARIN 60 MG/0.6 ML (LOVENOX) SYR SC ONE (13:15)
--- NOTE | 2019-05-05 14:12 | NUR ---
This RN faxed copy of face sheet to Jennifer MARIN as requested by JARRELL Nguyen at [phone]. Just spoke with Wendy again as facesheet had not been received. Fax again completed at [phone]. Awaiting to give report to send Pt over POV. Pt and family notified.
--- NOTE | 2019-05-05 14:25 | NUR ---
Report called to JARRELL Nguyen. Packet sent with Pt and family.
--- NOTE | 2019-05-05 14:32 | NUR ---
Dr. Casas present in the ED and in to see pt at this time.
[2019-05-05 14:45] VITALS: BP 159/89
== END 2019-05-05 14:35 | disposition short-term general hospital (02) ==
LOC: EDUNIT# 10:33 → ER 10:34
DX: I82.401 Acute embolism and thrombosis of unspecified deep veins of right lower extremity (principal); K76.89 Other specified diseases of liver; I10 Essential (primary) hypertension; F41.9 Anxiety disorder, unspecified; G47.30 Sleep apnea, unspecified; K21.9 Gastro-esophageal reflux disease without esophagitis; Z99.89 Dependence on other enabling machines and devices; Z79.52 Long term (current) use of systemic steroids; Z87.891 Personal history of nicotine dependence; Z87.19 Personal history of other diseases of the digestive system; Z82.49 Family history of ischemic heart disease and other diseases of the circulatory system
CPT/HCPCS: 36415; 80053; 82140; 85025; 85379; 85610; 85730; 96372

== ENCOUNTER → 2019-09-03 | Outpatient (CLI) | payer OTHER ==
[~2019-09-03] MED LIST changes: +BISO-3 PO; -BISO1TAB6 PO; -MAGN400T6 PO; +MAGN400T8 PO; +OMEP40CA27 PO; -OMEP40CA36 PO; +SLF500T PO; -SULF500T7 PO
--- NOTE | 2019-09-03 08:59 | Diagnostic Imaging Report ---
INDICATION: Liver cirrhosis TECHNIQUE: Multiple real-time ely scale sonographic images of the abdomen. CORRELATION STUDY: 10/03/2017 FINDINGS: LIVER: Liver is small, heterogeneous and with nodular echotexture compatible with chronic cirrhosis. Liver size 13.9 cm. There is normal, hepatopedal direction of flow within the main portal vein. GALLBLADDER: No shadowing gallstones or pericholecystic fluid. There is, however, gallbladder wall thickening at 4 mm. COMMON BILE DUCT: Unable to be visualized. No overt bile duct dilatation. PANCREAS: Largely obscured and not visualized. SPLEEN: Enlarged at 15.1 x 5.5 x 5.7 cm. ABDOMINAL AORTA: Obscured, not visualized. INFERIOR VENA CAVA: Obscured, not visualized. RIGHT KIDNEY: 11.4 x 6.2 x 6.6 cm. Unremarkable. LEFT KIDNEY: 10.9 x 5.2 x 5.5 cm. Unremarkable. OTHER: No significant abdominal ascites. IMPRESSION: 1. Cirrhotic appearing liver. 2. Mild splenomegaly. No significant ascites. 3. Remainder of the examination is fairly limited owing to patient's underlying body habitus and overlying bowel gas obscuration. Dictated by: Dictated on workstation # [id number]
== END ==
LOC: RAD 07:39
PROVIDERS: ATTEND Nurse Practitioner Adult Health
DX: K74.60 Unspecified cirrhosis of liver (principal); R16.1 Splenomegaly, not elsewhere classified
CPT/HCPCS: 76700

== ENCOUNTER 2019-09-27 15:25 | Observation (INO) | payer OTHER ==
[~2019-09-27] VITALS: Ht 180.7 cm; Wt 127.2 kg
[2019-09-27] MEDS ORDERED: NS IV 1000 ML 1,000 ML IV SCH (15:32)
[2019-09-27 16:26] VITALS: BP 138/71
--- NOTE | 2019-09-27 16:37 | Progress Note ---
Progress Note Pt is a 54-year-old M presenting for a 6-week follow-up Pt stated that he feels really well. Pt's is back to work now. Pt saw Dr. Miller's nurse a week ago for MAYELA evaluation. Pt stopped taking the Lactulose. I asked the Pt what we should we focus on. Pt has been thinking okay and he stated that he has not been "off the jasso" recently. Pt's stated that sometimes I get mad because the Pt does not take all the meds he is supposed to all of the time. Pt takes his blood thinner twice a day. Pt takes Rifaximin twice a day also. Pt tends to take all of his medications at night, not when he is supposed to. I stated that I am noticing some fogginess and I suspect the pt's liver to be acting up a little bit. I stated that Rifaximin is the best treatment for cirrhosis. I stated that Ammonia levels can be climbing the Pt might not notice it, but I think we are getting close to having too high of levels. Pt stated that he does not want to end up back in the hospital. I stated that sometimes it takes a lot of time to get the ammonia out from going to the bathroom. I stated the high ammonia levels make it hard to take medication at the time you are supposed to because you don't know what time of day it is. I asked if any alarm to take medication would help. Pt does not eat that much so he won't take his medication. Pt stated that he does not have an appetite. I stated that ammonia really affects decision making. Ammonia can affect appetite also. I stated that if the pt feels like if we have to do a stint in the hospital to get the pt on track then we can do that. Pt does not want to do that, but I stated that it might have to be something that needs to be done. Pt's stated that she made sure he took his medication, but now since she is back at work, she can't control when he takes his medication. I stated that a short stay at the hospital would be okay and I can take care of him this weekend. Pt's does not work this weekend. I stated that we are on the edge of having to go to the hospital. Pt has not been running a fever, but he has had a little blood in his stool, but he thinks it is normal because he usually has some. I stated it could be getting worse by him not taking his medication. Pt asked me what I think, so I told him he has 2 options. I stated he could have a weekend stay for observation or the other option is to check ammonia levels at the Lab at the hospital and if anything worsens over the weekend then we can go to the hospital or if the pt gets back on track with medication then I can see him back here on Monday. I stated that the brief stay at the hospital would be the best. I stated the pt will need to bring the bottles of medications. got the pt a bed on the 4th floor of [facility] for an observation stay. Pt's asked if they needed to wear masks at the hospital. Pt will go ahead and get all of his medications and head to the hospital. I stated that the Pt needs to make an overnight bag with his medication then head over there. I stated that with visitors, once the visitor leaves, they can't come back for the rest of the day. Pt's asked if she needs to stay home with the pt and I told her to take it slow and let's get back on track before we make that decision. This document was scribed by DIANA Mike DO September 27, 2019 16:37
[2019-09-27 16:48] LABS: BASOPHILS % (AUTO) 1 % (0-10); EOSINOPHILS # (AUTO) 0.1 10^3/uL (0.0-0.3); EOSINOPHILS % (AUTO) 1 % (0-10); HEMATOCRIT 38 % (40-54); HEMOGLOBIN 12.9 G/DL (13.3-17.7); LYMPHOCYTES # (AUTO) 0.8 X 10^3 (1.0-4.0); LYMPHOCYTES % (AUTO) 18 % (12-44); MEAN CORPUSCULAR HEMOGLOBIN 29 PG (25-34); MEAN CORPUSCULAR HGB CONC 34 G/DL (32-36); MEAN CORPUSCULAR VOLUME 86 FL (80-99); MEAN PLATELET VOLUME 10.6 FL (7.4-10.4); MONOCYTES # (AUTO) 0.6 X 10^3 (0.0-1.0); MONOCYTES % (AUTO) 14 % (0-12); NEUTROPHILS # (AUTO) 2.8 X 10^3 (1.8-7.8); NEUTROPHILS % (AUTO) 67 % (42-75); PLATELET COUNT 132 10^3/uL (130-400); RED CELL DISTRIBUTION WIDTH 15.2 % (10.0-14.5); WHITE BLOOD COUNT 4.2 10^3/uL (4.3-11.0)
--- OUTSIDE RECORDS SUMMARY | 2019-09-27 16:57 | XMS REPORT | Encounter Summary ---
Author Author [facility] Organization [facility] Address Unknown Phone Unavailable Care Team Providers [employer] Dispatcher Name Role Phone Ivonne Casas DO PCP Alfred Chaparro MD Unavailable Encounter Details Care Team Description Date Type Department Kelley Black LPN Other cirrhosis of liver (HCC); Cirrhosis of liver without ascites, unspecified hepatic cirrhosis type (HCC) 09/24/2019 Orders Only The [address] [id number] Social History Date Tobacco Use Types Packs/Day Years Used Former Smoker Smokeless Tobacco: Never Used Drinks/Week oz/Week Comments Alcohol Use No Sex Assigned at Date Recorded Not on file Industry Job Start Date Occupation Not on file Not on file Not on file Travel End Travel History Travel Start No recent travel history available. documented as of this encounter Functional Status Date of Assessment Functional Status Response 03/01/2019 Does the patient have a hearing impairment: No 03/01/2019 Does the patient have a visual impairment: Yes 03/01/2019 Does the patient have impaired ambulation: No 03/01/2019 Does the patient have an activity of daily living No (ADL) impairment: 03/01/2019 Does the patient have an instrumental activity of No daily living (IADL) impairment: Date of Assessment Cognitive Status Response 03/01/2019 Does the patient have a cognitive impairment: Yes documented as of this encounter Plan of Treatment Not on filedocumented as of this encounter Procedures Comments Procedure Name Priority Date/Time Associated Diag nosis US ABDOMEN COMPLETE Routine 09/03/2019 Other cirr hosis of liver (HCC) Cirrhosis of liver without ascites, unspecified hepatic cirrhosis type (HCC) documented in this encounter Results * US ABDOMEN COMPLETE (09/03/2019) Narrative Performed At This result has an attachment that is n ot available. documented in this encounter Visit Diagnoses Diagnosis Cirrhosis of liver without ascites, uns pecified hepatic cirrhosis type (HCC) documented in this encounter
--- OUTSIDE RECORDS SUMMARY | 2019-09-27 16:57 | XMS REPORT | Continuity of Care Document ---
Author Organization Unknown Address Unknown Phone Unavailable Allergies Active Description Code Type Severity Reaction Onset Reported/Identified Relationship to Patient Clinical Status Yes NO KNOWN DRUG ALLERGIES UNKNOWN UNKNOWN Yes No Known Drug Allergies [id number] Drug Allergy Unknown N/A 02/20/2019 Medications Medication Packaging Start Date St op Date Route Dosage Sig ACETAMINOPHEN ORAL TABLET 325mg(Tylenol) MG 05/05/2019 06/04/2019 PRN EVERY 6 Hour ALPRAZOLAM TAB 0.25 MG (XANAX) MG 05/05/2019 05/15/2019 PRN Q6H CLONIDINE TAB 0.1 MG (CATAPRES) MG 05/05/2019 05/12/2019 PRN Q6H ACETAMINOPHEN SUPPOS SUP 650 MG (TYLENOL) MG 05/05/2019 05/12/2019 PRN Q4H ONDANSETRON VIAL INJ 4 MG/2CC (ZOFRAN 2CC VIAL) MG 05/05/2019 05/12/2019 PRN Q6H CALCIUM CARBONATE TAB 500 MG (TUMS) MG 05/05/2019 05/12/2019 PRN Q6H DIPHENHYDRAMINE CAP 25 MG (BENADRYL) MG 05/05/2019 05/12/2019 PRN Q6H HYDROCODONE/APAP 5MG/325MG T AB 5 MG/325MG (DOUGLAS-TAB 5/325) TAB 05/05/2019 05/15/2019 PRN Q6H ALUM/MAG/SIMETH 30CC LIQ (MYLANTA PLUS) cc 05/05/2019 05/15/2019 PRN Q4H GUAIFENESIN - DM LIQ (ROBITUSSIN DM) MLS 05/05/2019 05/12/2019 PRN Q4H MAGNESIUM OXIDE TAB 400 MG (MAG-OX) Dose(s) 05/05/2019 05/12/2019 BID&0800,2000 RIFAXIMIN TAB 550 MG (XIFAXAN) Dose(s) 05/05/2019 06/04/2019 BID&0800,2000 Docusate sodium 100mg oral capsule (COLACE ) MG 05/05/2019 06/04/2019 PRN BID ENOXAPARIN SYRINGE INJ 120 MG (LOVENOX SYR LUPIS) MG 05/05/2019 05/15/2019 BID&0800,1999 SULFASALAZINE TAB 500 MG (AZULFIDINE) Dose(s) 05/05/2019 05/11/2019 Daily&2000 LACTULOSE SYRUP LIQ 20 GM/30 CC (CHRONULAC SYRUP) GM 05/05/2019 06/04/2019 BID&0800,1999 MELATONIN TAB 3 MG (MELATONIN) MG 05/05/2019 06/03/2019 PRN QHS SPIRONOLACTONE TAB 25 MG (ALDACTONE) Dose(s) 05/06/2019 06/04/2019 Daily&0800 AMLODIPINE TAB 5 MG (NORVASC) Dose(s) 05/06/2019 05/12/2019 Daily&0900 POTASSIUM CHLORIDE TAB 10 MEQ (K-DUR) Dose(s) 05/06/2019 06/04/2019 Daily&0900 BISACODYL TAB 5 MG (DULCOLAX) MG 05/06/2019 05/12/2019 PRN Daily BISOPROLOL TAB 5 MG (ZEBETA) Dose(s) 05/06/2019 06/04/2019 Daily&0900 POLYETHYLENE GLYCOL POWDER U D PWD (MIRALAX 17GM UNIT DOSE PAKS) gm 05/06/2019 05/12/2019 Daily&0900 CITALOPRAM TAB 20 MG (CELEXA) Dose(s) 05/06/2019 05/12/2019 Daily&0900 BISACODYL SUPPOS 10 MG (DULCOLAX SUPPOS) MG 05/06/2019 05/12/2019 PRN Daily SULFASALAZINE TAB 500 MG (AZULFIDINE) Dose(s) 05/06/2019 05/12/2019 Daily&0900 MILK OF MAGNESIA LIQ ml 05/06/2019 06/04/2019 PRN Daily APIXABAN TAB 5 MG (ELIQUIS) MG 05/06/2019 05/06/2019 ONCE&1100 SPIRONOLACTONE TAB 25 MG (ALDACTONE) Dose(s) 05/06/2019 06/04/2019 Daily&1200 Problems Date Dx Coded Attending Type Code Diagnosis Diagnosed By 11/30/2010 Ot 558.9 ALYSIA NF GASTROENTERIT NEC 01/27/2016 MOMO TRUJILLO, CORIE Garcia Ot K52.9 NONINFECTIVE GASTROENTERITIS AND COLITIS 01/27/2016 MOMO TRUJILLO, CORIE Garcia Ot Z01.818 ENCOUNTER FOR OTHER PREPROCEDURAL EXAMIN 01/27/2016 CORIE BARR MD Ot Z86.010 PERSONAL HISTORY OF COLONIC POLYPS 01/28/2016 MOMO TRUJILLO, CORIE Garcia Ot K52.9 NONINFECTIVE GASTROENTERITIS AND COLITIS 01/28/2016 MOMO TRUJILLO, CORIE Garcia Ot Z01.818 ENCOUNTER FOR OTHER PREPROCEDURAL EXAMIN 01/28/2016 CORIE BARR MD Ot Z86.010 PERSONAL HISTORY OF COLONIC POLYPS 02/01/2016 Ot 556.9 ULCE RATIVE COLITIS, UNSPECIFIED 02/01/2016 CORIE BARR MD Ot I1 0 ESSENTIAL (PRIMARY) HYPERTENSION 02/01/2016 CORIE BARR MD Ot K52.9 NONINFECTIVE GASTROENTERITIS AND COLITIS 02/01/2016 CORIE BARR MD Ot Z86.010 PERSONAL HISTORY OF COLONIC POLYPS 02/03/2016 CORIE BARR MD Ot I1 0 ESSENTIAL (PRIMARY) HYPERTENSION 02/03/2016 MOMO TRUJILLO, CORIE Garcia Ot K52.9 NONINFECTIVE GASTROENTERITIS AND COLITIS 02/03/2016 MOMO TRUJILLO, CORIE Garcia Ot Z86.010 PERSONAL HISTORY OF COLONIC POLYPS 03/16/2016 Ot R16.1 SPLE NOMEGALY, NOT ELSEWHERE CLASSIFIED 03/16/2016 Ot R74.8 ABNO RMAL LEVELS OF OTHER SERUM ENZYMES 03/16/2016 Ot R16.1 SPLE NOMEGALY, NOT ELSEWHERE CLASSIFIED 03/16/2016 Ot R74.8 ABNO RMAL LEVELS OF OTHER SERUM ENZYMES 03/30/2016 Ot R16.1 SPLE NOMEGALY, NOT ELSEWHERE CLASSIFIED 03/30/2016 Ot R74.8 ABNO RMAL LEVELS OF OTHER SERUM ENZYMES 09/19/2016 Ot R16.1 SPLE NOMEGALY, NOT ELSEWHERE CLASSIFIED 09/19/2016 Ot R74.8 ABNO RMAL LEVELS OF OTHER SERUM ENZYMES 09/30/2016 Ot R16.1 SPLE NOMEGALY, NOT ELSEWHERE CLASSIFIED 09/30/2016 Ot R74.8 ABNO RMAL LEVELS OF OTHER SERUM ENZYMES 05/25/2017 KELLY TRUJILLO, JENN Cuevas Ot E87 .6 HYPOKALEMIA 05/25/2017 JENN MENDOZA MD Ot I10 ESSENTIAL (PRIMARY) HYPERTENSION 05/25/2017 JENN MENDOZA MD Ot K51.90 ULCERATIVE COLITIS, UNSPECIFIED, WITHOUT 05/25/2017 JENN MENDOZA MD Ot K72.00 ACUTE AND SUBACUTE HEPATIC FAILURE WITHO 05/25/2017 JENN MENDOZA MD Ot K74.60 UNSPECIFIED CIRRHOSIS OF LIVER 05/25/2017 JENN MENDOZA MD Ot L40 .9 PSORIASIS, UNSPECIFIED 05/25/2017 JENN MENDOZA MD Ot Z23 ENCOUNTER FOR IMMUNIZATION 05/26/2017 Ot R16.1 SPLE NOMEGALY, NOT ELSEWHERE CLASSIFIED 05/26/2017 Ot R74.8 ABNO RMAL LEVELS OF OTHER SERUM ENZYMES 05/29/2017 BARRIGA DO, DIANA Ot E78.00 PURE HYPERCHOLESTEROLEMIA, UNSPECIFIED 05/29/2017 BARRIGA DO, DIANA Ot E83.42 HYPOMAGNESEMIA 05/29/2017 BARRIGA DO, DIANA Ot E87.6 HYPOKALEMIA 05/29/2017 BARRIGA DO, DIANA Ot G47.33 OBSTRUCTIVE SLEEP APNEA (ADULT) (PEDIATR 05/29/2017 BARRIGA DO, DIANA Ot I10 ESSENTIAL (PRIMARY) HYPERTENSION 05/29/2017 BARRIGA DO, DIANA Ot K72.00 ACUTE AND SUBACUTE HEPATIC FAILURE WITHO 05/29/2017 BARRIGA DO, DIANA Ot K74.60 UNSPECIFIED CIRRHOSIS OF LIVER 05/29/2017 BARRIGA DO, DIANA Ot Z87.89 1 PERSONAL HISTORY OF NICOTINE DEPENDENCE 09/29/2017 Ot R16.1 SPLE NOMEGALY, NOT ELSEWHERE CLASSIFIED 09/29/2017 Ot R74.8 ABNO RMAL LEVELS OF OTHER SERUM ENZYMES 10/04/2017 SPENSER RIOS MD Ot K74.69 OTHER CIRRHOSIS OF LIVER 10/04/2017 SPENSER RIOS MD Ot R16.1 SPLENOMEGALY, NOT ELSEWHERE CLASSIFIED 10/04/2017 SPENSER RIOS MD Ot K74.69 OTHER CIRRHOSIS OF LIVER 10/04/2017 SPENSER RIOS MD Ot R16.1 SPLENOMEGALY, NOT ELSEWHERE CLASSIFIED 10/14/2017 Ot R16.1 SPLE NOMEGALY, NOT ELSEWHERE CLASSIFIED 10/14/2017 Ot R74.8 ABNO RMAL LEVELS OF OTHER SERUM ENZYMES 10/14/2017 SPENSER RIOS MD Ot K74.69 OTHER CIRRHOSIS OF LIVER 10/14/2017 SPENSER RIOS MD Ot R16.1 SPLENOMEGALY, NOT ELSEWHERE CLASSIFIED 10/18/2017 Ot R16.1 SPLE NOMEGALY, NOT ELSEWHERE CLASSIFIED 10/18/2017 Ot R74.8 ABNO RMAL LEVELS OF OTHER SERUM ENZYMES 10/18/2017 SPENSER RIOS MD Ot K74.69 OTHER CIRRHOSIS OF LIVER 10/18/2017 SPENSER RIOS MD Ot R16.1 SPLENOMEGALY, NOT ELSEWHERE CLASSIFIED 10/21/2017 Ot R16.1 SPLE NOMEGALY, NOT ELSEWHERE CLASSIFIED 10/21/2017 Ot R74.8 ABNO RMAL LEVELS OF OTHER SERUM ENZYMES 10/21/2017 SPENSER RIOS MD Ot K74.69 OTHER CIRRHOSIS OF LIVER 10/21/2017 SPENSER RIOS MD Ot R16.1 SPLENOMEGALY, NOT ELSEWHERE CLASSIFIED 11/17/2017 Ot R16.1 SPLE NOMEGALY, NOT ELSEWHERE CLASSIFIED 11/17/2017 Ot R74.8 ABNO RMAL LEVELS OF OTHER SERUM ENZYMES 11/17/2017 SPENSER RIOS MD Ot K74.69 OTHER CIRRHOSIS OF LIVER 11/17/2017 SPENSER RIOS MD Ot R16.1 SPLENOMEGALY, NOT ELSEWHERE CLASSIFIED 03/08/2018 Ot R16.1 SPLE NOMEGALY, NOT ELSEWHERE CLASSIFIED 03/08/2018 Ot R74.8 ABNO RMAL LEVELS OF OTHER SERUM ENZYMES 03/08/2018 SPENSER RIOS MD Ot K74.69 OTHER CIRRHOSIS OF LIVER 03/08/2018 SPENSER RIOS MD Ot R16.1 SPLENOMEGALY, NOT ELSEWHERE CLASSIFIED 04/03/2018 OZIEL GREENBERG FEDERAL APPELLATE CLERK Ot K74.60 UNSPECIFIED CIRRHOSIS OF LIVER 04/03/2018 OZIEL GREENBERG FEDERAL APPELLATE CLERK Ot K76 .6 PORTAL HYPERTENSION 04/03/2018 OZIEL GREENBERG FEDERAL APPELLATE CLERK Ot N28 .1 CYST OF KIDNEY, ACQUIRED 04/03/2018 OZIEL GREENBERG FEDERAL APPELLATE CLERK Ot R16 .1 SPLENOMEGALY, NOT ELSEWHERE CLASSIFIED 04/03/2018 OZIEL GREENBERG FEDERAL APPELLATE CLERK Ot Z96.89 PRESENCE OF OTHER SPECIFIED FUNCTIONAL I 07/03/2018 Ot R16.1 SPLE NOMEGALY, NOT ELSEWHERE CLASSIFIED 07/03/2018 Ot R74.8 ABNO RMAL LEVELS OF OTHER SERUM ENZYMES 07/03/2018 BLANCA TRUJILLO, SPENSER Garcia Ot K74.69 OTHER CIRRHOSIS OF LIVER 07/03/2018 BLANCA TRUJILLO, SPENSER Garcia Ot R16.1 SPLENOMEGALY, NOT ELSEWHERE CLASSIFIED 07/03/2018 OZIEL GREENBERG FEDERAL APPELLATE CLERK Ot K74.60 UNSPECIFIED CIRRHOSIS OF LIVER 07/03/2018 OZIEL GREENBERG FEDERAL APPELLATE CLERK Ot K76 .6 PORTAL HYPERTENSION 07/03/2018 OZIEL GREENBERG FEDERAL APPELLATE CLERK Ot N28 .1 CYST OF KIDNEY, ACQUIRED 07/03/2018 OZIEL GREENBERG FEDERAL APPELLATE CLERK Ot R16 .1 SPLENOMEGALY, NOT ELSEWHERE CLASSIFIED 07/03/2018 OZIEL GREENBERG FEDERAL APPELLATE CLERK Ot Z96.89 PRESENCE OF OTHER SPECIFIED FUNCTIONAL I 07/03/2018 AUGUSTO DO DIANA Ot E78.00 PURE HYPERCHOLESTEROLEMIA, UNSPECIFIED 07/03/2018 AUGUSTO JOLLEY DIANA Ot E86.0 DEHYDRATION 07/03/2018 PIERCE BARRIGA DOI Ot F41.9 ANXIETY DISORDER, UNSPECIFIED 07/03/2018 AUGUSTO JOLLEY DIANA Ot G47.33 OBSTRUCTIVE SLEEP APNEA (ADULT) (PEDIATR 07/03/2018 AUGUSTO JOLLEY DIANA Ot I10 ESSENTIAL (PRIMARY) HYPERTENSION 07/03/2018 PIERCE BARRIGA DOI Ot K51.91 9 ULCERATIVE COLITIS, UNSP WITH UNSPECIFIE 07/03/2018 AUGUSTO JOLLEY DIANA Ot K52.9 NONINFECTIVE GASTROENTERITIS AND COLITIS 07/03/2018 AUGUSTO JOLLEY DIANA Ot K70.30 ALCOHOLIC CIRRHOSIS OF LIVER WITHOUT ASC 07/03/2018 AUGUSTO JOLLEY DIANA Ot K70.40 ALCOHOLIC HEPATIC FAILURE WITHOUT COMA 07/03/2018 AUGUSTO JOLLEY DIANA Ot L40.9 PSORIASIS, UNSPECIFIED 07/03/2018 AUGUSTO JOLLEY DIANA Ot 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 07/03/2018 PIERCE BARRIGA DOI Ot Z87.89 1 PERSONAL HISTORY OF NICOTINE DEPENDENCE 07/03/2018 AUGUSTO JOLLEY DIANA Ot E78.00 PURE HYPERCHOLESTEROLEMIA, UNSPECIFIED 07/03/2018 AUGUSTO JOLLEY DIANA Ot E86.0 DEHYDRATION 07/03/2018 AUGUSTO JOLLEY DIANA Ot F41.9 ANXIETY DISORDER, UNSPECIFIED 07/03/2018 AUGUSTO JOLLEY DIANA Ot G47.33 OBSTRUCTIVE SLEEP APNEA (ADULT) (PEDIATR 07/03/2018 BARRIGA DO, DIANA Ot I10 ESSENTIAL (PRIMARY) HYPERTENSION 07/03/2018 BARRIGA DO, DIANA Ot K51.91 9 ULCERATIVE COLITIS, UNSP WITH UNSPECIFIE 07/03/2018 BARRIGA DO, DIANA Ot K52.9 NONINFECTIVE GASTROENTERITIS AND COLITIS 07/03/2018 BARRIGA DO, DIANA Ot K70.30 ALCOHOLIC CIRRHOSIS OF LIVER WITHOUT ASC 07/03/2018 BARRIGA DO DIANA Ot K70.40 ALCOHOLIC HEPATIC FAILURE WITHOUT COMA 07/03/2018 BARRIGA DO DIANA Ot L40.9 PSORIASIS, UNSPECIFIED 07/03/2018 BARRIGA DO, DIANA Ot 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 07/03/2018 AUGUSTO DO DIANA Ot Z87.89 1 PERSONAL HISTORY OF NICOTINE DEPENDENCE 07/10/2018 AUGUSTO JOLLEY DIANA Ot E78.00 PURE HYPERCHOLESTEROLEMIA, UNSPECIFIED 07/10/2018 AUGUSTO DO DIANA Ot E86.0 DEHYDRATION 07/10/2018 AUGUSTO DO DIANA Ot F41.9 ANXIETY DISORDER, UNSPECIFIED 07/10/2018 AUGUSTO DO DIANA Ot G47.33 OBSTRUCTIVE SLEEP APNEA (ADULT) (PEDIATR 07/10/2018 BARRIGA DO, DIANA Ot I10 ESSENTIAL (PRIMARY) HYPERTENSION 07/10/2018 AUGUSTO DO DIANA Ot K51.91 9 ULCERATIVE COLITIS, UNSP WITH UNSPECIFIE 07/10/2018 BARRIGA DO, DIANA Ot K52.9 NONINFECTIVE GASTROENTERITIS AND COLITIS 07/10/2018 AUGUSTO JOLLEY DIANA Ot K70.30 ALCOHOLIC CIRRHOSIS OF LIVER WITHOUT ASC 07/10/2018 AUGUSTO DO DIANA Ot K70.40 ALCOHOLIC HEPATIC FAILURE WITHOUT COMA 07/10/2018 BARRIGA DO DIANA Ot L40.9 PSORIASIS, UNSPECIFIED 07/10/2018 AUGUSTO JOLLEY DIANA Ot 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 07/10/2018 AUGUSTO JOLLEY DIANA Ot Z87.89 1 PERSONAL HISTORY OF NICOTINE DEPENDENCE 08/07/2018 BERNICE MOSER DO Ot Z01.818 ENCOUNTER FOR OTHER PREPROCEDURAL EXAMIN 08/09/2018 Ot R16.1 SPLE NOMEGALY, NOT ELSEWHERE CLASSIFIED 08/09/2018 Ot R74.8 ABNO RMAL LEVELS OF OTHER SERUM ENZYMES 08/09/2018 BLANCA TRUJILLO, SPENSER Garcia Ot K74.69 OTHER CIRRHOSIS OF LIVER 08/09/2018 BLANCA TRUJILLO, SPENSER Garcia Ot R16.1 SPLENOMEGALY, NOT ELSEWHERE CLASSIFIED 08/09/2018 OZIEL GREENBERG FEDERAL APPELLATE CLERK Ot K74.60 UNSPECIFIED CIRRHOSIS OF LIVER 08/09/2018 OZIEL GREENBERG FEDERAL APPELLATE CLERK Ot K76 .6 PORTAL HYPERTENSION 08/09/2018 OZIEL GREENBERG FEDERAL APPELLATE CLERK Ot N28 .1 CYST OF KIDNEY, ACQUIRED 08/09/2018 OZIEL GREENBERG FEDERAL APPELLATE CLERK Ot R16 .1 SPLENOMEGALY, NOT ELSEWHERE CLASSIFIED 08/09/2018 OZIEL GREENBERG FEDERAL APPELLATE CLERK Ot Z96.89 PRESENCE OF OTHER SPECIFIED FUNCTIONAL I 08/09/2018 BERNICE MOSER DO Ot Z01.818 ENCOUNTER FOR OTHER PREPROCEDURAL EXAMIN 08/09/2018 BERNICE MOSER DO Ot D17. 1 BENIGN LIPOMATOUS NEOPLASM OF SKIN, SUBC 08/09/2018 BERNICE MOSER DO Ot D17. 21 BENIGN LIPOMATOUS NEOPLASM OF SKIN, SUBC 08/09/2018 BERNICE MOSER DO Ot D17. 22 BENIGN LIPOMATOUS NEOPLASM OF SKIN, SUBC 08/09/2018 BERNICE MOSER DO Ot I10 ESSENTIAL (PRIMARY) HYPERTENSION 08/09/2018 BERNICE MOSER DO Ot K51. 90 ULCERATIVE COLITIS, UNSPECIFIED, WITHOUT 08/09/2018 BERNICE MOSER DO Ot K74. 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 1 BENIGN LIPOMATOUS NEOPLASM OF SKIN, SUBC 08/15/2018 BERNICE MOSER DO Ot D17. 21 BENIGN LIPOMATOUS NEOPLASM OF SKIN, SUBC 08/15/2018 BERNICE MOSER DO D Ot D17. 22 BENIGN LIPOMATOUS NEOPLASM OF SKIN, SUBC 08/15/2018 ELBA MOSER DOTT D Ot I10 ESSENTIAL (PRIMARY) HYPERTENSION 08/15/2018 BERNICE MOSER DO Ot K51. 90 ULCERATIVE COLITIS, UNSPECIFIED, WITHOUT 08/15/2018 MOSER DO BERNICE Renee Ot K74. 60 UNSPECIFIED CIRRHOSIS OF LIVER 08/15/2018 MOSER ELBA JOLLEYTT Renee Ot Z79.899 OTHER SENIOR LIVING (CURRENT) DRUG THERAPY 08/15/2018 BERNICE MOSER DO Renee Ot Z87.891 PERSONAL HISTORY OF NICOTINE DEPENDENCE 02/20/2019 MOSER BERNICE Renee Ot Z01.818 ENCOUNTER FOR OTHER PREPROCEDURAL EXAMIN 02/22/2019 MOSER BERNICE JOLLEY Ot Z01.818 ENCOUNTER FOR OTHER PREPROCEDURAL EXAMIN 02/22/2019 Ot R16.1 SPLE NOMEGALY, NOT ELSEWHERE CLASSIFIED 02/22/2019 Ot R74.8 ABNO RMAL LEVELS OF OTHER SERUM ENZYMES 02/22/2019 SPENSER RIOS MD Ot K74.69 OTHER CIRRHOSIS OF LIVER 02/22/2019 SPENSER RIOS MD Ot R16.1 SPLENOMEGALY, NOT ELSEWHERE CLASSIFIED 02/22/2019 OZIEL GREENBERG APRN Ot K74.60 UNSPECIFIED CIRRHOSIS OF LIVER 02/22/2019 OZIEL GREENBERG APRN Ot K76 .6 PORTAL HYPERTENSION 02/22/2019 OZIEL GREENBERG APRN Ot N28 .1 CYST OF KIDNEY, ACQUIRED 02/22/2019 OZIEL GREENBERG APRN Ot R16 .1 SPLENOMEGALY, NOT ELSEWHERE CLASSIFIED 02/22/2019 OZIEL GREENBERG APRN Ot Z96.89 PRESENCE OF OTHER SPECIFIED FUNCTIONAL I 02/22/2019 MOSER DO BERNICE Renee Ot Z01.818 ENCOUNTER FOR OTHER PREPROCEDURAL EXAMIN 02/26/2019 Ot R16.1 SPLE NOMEGALY, NOT ELSEWHERE CLASSIFIED 02/26/2019 Ot R74.8 ABNO RMAL LEVELS OF OTHER SERUM ENZYMES 02/26/2019 SPENSER RIOS MD Ot K74.69 OTHER CIRRHOSIS OF LIVER 02/26/2019 SPENSER RIOS MD Ot R16.1 SPLENOMEGALY, NOT ELSEWHERE CLASSIFIED 02/26/2019 OZIEL GREENBERG APRN Ot K74.60 UNSPECIFIED CIRRHOSIS OF LIVER 02/26/2019 OZIEL GREENBERG APRN Ot K76 .6 PORTAL HYPERTENSION 02/26/2019 OZIEL GREENBERG APRN Ot N28 .1 CYST OF KIDNEY, ACQUIRED 02/26/2019 OZIEL GREENBERG FEDERAL APPELLATE CLERK Ot R16 .1 SPLENOMEGALY, NOT ELSEWHERE CLASSIFIED 02/26/2019 OZIEL GREENBERG FEDERAL APPELLATE CLERK Ot Z96.89 PRESENCE OF OTHER SPECIFIED FUNCTIONAL I 02/26/2019 BERNICE MOSER DO Ot Z01.818 ENCOUNTER FOR OTHER PREPROCEDURAL EXAMIN 02/26/2019 BERNICE MOSER DO Ot E66. 01 MORBID (SEVERE) OBESITY DUE TO EXCESS CA 02/26/2019 BERNICE MOSER DO Ot G47. 33 OBSTRUCTIVE SLEEP APNEA (ADULT) (PEDIATR 02/26/2019 BERNICE MOSER DO Ot I10 ESSENTIAL (PRIMARY) HYPERTENSION 02/26/2019 BERNICE MOSER DO Ot K21. 9 GASTRO-ESOPHAGEAL REFLUX DISEASE WITHOUT 02/26/2019 BERNICE MOSER DO Ot K51. 90 ULCERATIVE COLITIS, UNSPECIFIED, WITHOUT 02/26/2019 BERNICE MOSER DO Ot K62. 5 HEMORRHAGE OF ANUS AND RECTUM 02/26/2019 BERNICE MOSER DO Ot K64. 4 RESIDUAL HEMORRHOIDAL SKIN TAGS 02/26/2019 BERNICE MOSER DO Ot Z68. 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 01 MORBID (SEVERE) OBESITY DUE TO EXCESS CA 03/01/2019 BERNICE MOSER DO Ot G47. 33 OBSTRUCTIVE SLEEP APNEA (ADULT) (PEDIATR 03/01/2019 BERNICE MOSER DO Ot I10 ESSENTIAL (PRIMARY) HYPERTENSION 03/01/2019 BERNICE MOSER DO Ot K21. 9 GASTRO-ESOPHAGEAL REFLUX DISEASE WITHOUT 03/01/2019 BERNICE MOSER DO Ot K51. 90 ULCERATIVE COLITIS, UNSPECIFIED, WITHOUT 03/01/2019 BERNICE MOSER DO Ot K62. 5 HEMORRHAGE OF ANUS AND RECTUM 03/01/2019 MOSER BERNICE JOLLEY Ot K64. 4 RESIDUAL HEMORRHOIDAL SKIN TAGS 03/01/2019 BERNICE MOSER DO Ot Z68. 41 BODY MASS INDEX (BMI) 40.0-44.9, ADULT 03/01/2019 BERNICE MOSER DO Ot Z79.899 OTHER SENIOR LIVING (CURRENT) DRUG THERAPY 03/01/2019 MOSER BERNICE JOLLEY Ot Z82. 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 05/05/2019 TWYLA MORTON MD, Ot F41.9 ANXIETY DISORDER, UNSPECIFIED 05/05/2019 TWYLA MORTON MD, Ot G47.30 SLEEP APNEA, UNSPECIFIED 05/05/2019 TWYLA MORTON MD Ot I10 ESSENTIAL (PRIMARY) HYPERTENSION 05/05/2019 TWYLA MORTON MD Ot I82.401 ACUTE EMBOLISM AND THOMBOS UNSP DEEP VEI 05/05/2019 TWYLA MORTON MD Ot K21.9 GASTRO-ESOPHAGEAL REFLUX DISEASE WITHOUT 05/05/2019 TWYLA MORTON MD Ot K76.89 OTHER SPECIFIED DISEASES OF LIVER 05/05/2019 TWYLA MORTON MD Ot M79.89 OTHER SPECIFIED SOFT TISSUE DISORDERS 05/05/2019 TWYLA MORTON MD Ot Z79.52 SENIOR LIVING (CURRENT) USE OF SYSTEMIC STER 05/05/2019 TWYLA MORTON MD Ot Z82.49 FAMILY HX OF ISCHEM HEART DIS AND OTH DI 05/05/2019 TWYLA MORTON MD Ot Z87.19 PERSONAL HISTORY OF OTHER DISEASES OF TH 05/05/2019 TWYLA MORTON MD, Ot Z87.891 PERSONAL HISTORY OF NICOTINE DEPENDENCE 05/05/2019 TWYLA MORTON MD Ot Z99.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 AN 05/06/2019 Diana Barriga 571.5 CIRRHOSIS OF LIVER WITHOUT MENTION OF ALCOHOL 05/06/2019 Diana Barriga K74.60 UNSPECIFIED CIRRHOSIS OF LIVER 05/06/2019 Barriga, Diana W 571.5 CIRRHOSIS OF LIVER WITHOUT MENTION OF ALCOHOL 05/06/2019 Diana Barriga W 729.5 PAIN IN LIMB 05/06/2019 Diana Barriga W 782.3 EDEMA 05/06/2019 Diana Barriga W K74.60 UNSPECIFIED CIRRHOSIS OF LIVER 05/06/2019 Diana Barriga W M79.661 PAIN IN RIGHT LOWER LEG 05/06/2019 Diana Barriga W R60.0 LOCALIZED EDEMA 05/06/2019 Diana Barriga W 296.20 MAJOR DEPRESSIVE DISORDER, SINGLE EPISODE, UNSPECIFIED DEGREE 05/06/2019 Diana Barriga W 401.0 MALIGNANT ESSENTIAL HYPERTENSION 05/06/2019 Diana Barriga W 453.41 ACUTE VENOUS EMBOLISM AND THROMBOSIS OF DEEP VESSELS OF PROXIMAL LOWER EXTREMITY 05/06/2019 Diana Barriga W 453.42 ACUTE VENOUS EMBOLISM AND THROMBOSIS OF DEEP VESSELS OF DISTAL LOWER EXTREMITY 05/06/2019 Diana Barriga W 530.81 ESOPHAGEAL REFLUX 05/06/2019 Diana Barriga W 556.9 ULCERATIVE COLITIS, UNSPECIFIED 05/06/2019 Diana Barriga W 571.5 CIRRHOSIS OF LIVER WITHOUT MENTION OF ALCOHOL 05/06/2019 Diana Barriga W 729.5 PAIN IN LIMB 05/06/2019 Diana Barriga W 782.3 EDEMA 05/06/2019 Diana Barriga W F32.9 MAJOR DEPRESSIVE DISORDER, SINGLE EPISODE, UNSPECIFIED 05/06/2019 Diana Barriga W I10 ESSENTIAL (PRIMARY) HYPERTENSION 05/06/2019 Diana Barriga W I82.431 ACUTE EMBOLISM AND THROMBOSIS OF RIGHT POPLITEAL VEIN 05/06/2019 Diana Barriga W I82.451 ACUTE EMBOLISM AND THROMBOSIS OF RIGHT PERONEAL VEIN 05/06/2019 Diana Barriga W K21.9 GASTRO- ESOPHAGEAL REFLUX DISEASE WITHOUT ESOPHAGITIS 05/06/2019 Diana Barriga W K51.90 ULCERATIVE COLITIS, UNSPECIFIED, WITHOUT COMPLICATIONS 05/06/2019 Diana Barriga W K74.60 UNSPECIFIED CIRRHOSIS OF LIVER 05/06/2019 Diana Barriga W K74.69 OTHER CIRRHOSIS OF LIVER 05/06/2019 Diana Barriga W M79.661 PAIN IN RIGHT LOWER LEG 05/06/2019 Barriga, Diana W R60.0 LOCALIZED EDEMA 05/12/2019 TWYLA MORTON MD, Ot F41.9 ANXIETY DISORDER, UNSPECIFIED 05/12/2019 TWYLA MORTON MD, Ot G47.30 SLEEP APNEA, UNSPECIFIED 05/12/2019 TWYLA MORTON MD Ot I10 ESSENTIAL (PRIMARY) HYPERTENSION 05/12/2019 TWYLA MORTON MD Ot I82.401 ACUTE EMBOLISM AND THOMBOS UNSP DEEP VEI 05/12/2019 TWYLA MORTON MD, Ot K21.9 GASTRO-ESOPHAGEAL REFLUX DISEASE WITHOUT 05/12/2019 TWYLA MORTON MD, Ot K76.89 OTHER SPECIFIED DISEASES OF LIVER 05/12/2019 TWYLA MORTON MD, Ot M79.89 OTHER SPECIFIED SOFT TISSUE DISORDERS 05/12/2019 TWYLA MORTON MD, Ot Z79.52 [employer] (CURRENT) USE OF SYSTEMIC STER 05/12/2019 TWYLA MORTON MD, Ot Z82.49 FAMILY HX OF ISCHEM HEART DIS AND OTH DI 05/12/2019 TWYLA MORTON MD, Ot Z87.19 PERSONAL HISTORY OF OTHER DISEASES OF TH 05/12/2019 TWYLA MORTON MD, Ot Z87.891 PERSONAL HISTORY OF NICOTINE DEPENDENCE 05/12/2019 TWYLA MORTON MD Ot Z99.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 AN 09/02/2019 Ot R16.1 SPLE NOMEGALY, NOT ELSEWHERE CLASSIFIED 09/02/2019 Ot R74.8 ABNO RMAL LEVELS OF OTHER SERUM ENZYMES 09/02/2019 SPENSER RIOS MD Ot K74.69 OTHER CIRRHOSIS OF LIVER 09/02/2019 SPENSER RIOS MD Ot R16.1 SPLENOMEGALY, NOT ELSEWHERE CLASSIFIED 09/02/2019 OZIEL GREENBERG APRN Ot K74.60 UNSPECIFIED CIRRHOSIS OF LIVER 09/02/2019 OZIEL GREENBERG APRN Ot K76 .6 PORTAL HYPERTENSION 09/02/2019 OZIEL GREENBERG APRN Ot N28 .1 CYST OF KIDNEY, ACQUIRED 09/02/2019 OZIEL GREENBERG APRN Ot R16 .1 SPLENOMEGALY, NOT ELSEWHERE CLASSIFIED 09/02/2019 OZIEL GERENBERG APRN Ot Z96.89 PRESENCE OF OTHER SPECIFIED FUNCTIONAL I 09/02/2019 BERNICE MOSER DO D Ot Z01.818 ENCOUNTER FOR OTHER PREPROCEDURAL EXAMIN 09/04/2019 OZIEL GREENBERG APRN Ot K74.60 UNSPECIFIED CIRRHOSIS OF LIVER 09/04/2019 OZIEL GREENBERG APRN Ot R16 .1 SPLENOMEGALY, NOT ELSEWHERE CLASSIFIED 09/18/2019 OZIEL GREENBERG APRN Ot K74.60 UNSPECIFIED CIRRHOSIS OF LIVER 09/18/2019 OZIEL GREENBERG APRN Ot R16 .1 SPLENOMEGALY, NOT ELSEWHERE CLASSIFIED Procedures There is no data. Results Test Result Range Complete blood count (CBC) with automate d white blood cell (WBC) differential - 05/23/17 00:15 Blood leukocytes automated count (number/volume) 7.9 10*3/uL 4.3-11.0 Blood erythrocytes automated count (number/volume) 4.96 10*6/uL 4.35-5.85 Venous blood hemoglobin measurement (mass/volume) 15.6 g/dL 13.3-17.7 Blood hematocrit (volume fraction) 42 % 40-54 Automated erythrocyte mean corpuscular volume 85 [ foz_us] 80-99 Automated erythrocyte mean corpuscular h emoglobin (mass per erythrocyte) 32 pg 25-34 Automated erythrocyte mean corpuscular h emoglobin concentration measurement (mass/volume) 37 g/dL 32-36 Automated erythrocyte distribution width ratio 13. 8 % 10.0- 14.5 Automated blood platelet count (count/volume) 134 10*3/uL [...] 10*3 1.0-4.0 Blood monocytes automated count (number/volume) 1. 0 10*3 0.0-1.0 Automated eosinophil count 0.2 10*3/uL 0 .0-0.3 Automated blood basophil count (count/volume) 0.1 10*3/uL 0.0-0.1 Blood lactic acid measurement (moles/vol ume) - 05/23/17 00:15 Blood lactic acid measurement [...] 5-14 Serum or plasma urea nitrogen measurement (mass/volume ) 15 mg/dL 7-18 Serum or plasma creatinine measurement (mass/volume) 1.01 mg/dL 0.60-1.30 Serum or plasma urea nitrogen/creatinine mass ratio 15 NRG Serum or plasma creatinine measurement w ith calculation of estimated glomerular filtration rate > NRG Serum or plasma glucose measurement (mass/volume) 110 mg/dL 70-105 Serum or plasma calcium measurement (mass/volume) 8.1 mg/dL 8.5-10.1 Serum or plasma total bilirubin measurement (mass/volu me) 2.2 mg/dL 0.1-1.0 Serum or plasma alkaline phosphatase gracie surement (enzymatic activity/volume) 255 U/L 40-136 Serum or plasma aspartate aminotransfera se measurement (enzymatic activity/volume) 53 U/L 5-34 Serum or plasma alanine aminotransferase measurement (enzymatic activity/volume) 34 U/L 0-55 Serum or plasma protein measurement (mass/volume) 5.8 g/dL 6.4-8.2 Serum or plasma albumin measurement (mass/volume) 3.0 g/dL 3.2-4.5 Magnesium - 05/23/17 00:15 Magnesium 1.6 mg/dL 1.8-2.4 Ammonia - 05/23/17 00:15 Ammonia 115 umol/L 11-32 Serum or plasma C reactive protein measu rement (mass/volume) - 05/23/17 00:15 Serum or plasma C reactive protein measurement (mass/v olume) 10.17 mg/dL 0.00-0.50 Bacterial blood culture - 05/23/17 00:15 Bacterial blood culture NG NRG Bacterial blood culture - 05/23/17 00:40 Bacterial blood culture NG NRG Complete urinalysis with reflex to cultu re - 05/23/17 01:45 Urine color determination BROWN NRG Urine clarity determination SLIGHTLY CLOUDY NRG Urine pH measurement by test strip 6 5-9 Specific gravity of urine by test strip 1.015 1.016-1.022 Urine protein assay by test strip, semi-quantitative 2+ NEGATIVE Urine glucose detection by automated test strip NE GATIVE NEGATIVE Erythrocytes detection in urine sediment by light micr oscopy 3+ NEGATIVE Urine ketones detection by automated test strip NE GATIVE NEGATIVE Urine nitrite detection by test strip POSITIVE NEGATIVE Urine total bilirubin detection by test strip 2+ NEGATIVE Urine urobilinogen measurement by automated test strip (mass/volume) 4 mg/dL NORMAL Urine leukocyte esterase detection by dipstick 2+ NEGATIVE Automated urine sediment erythrocyte cou nt by microscopy (number/high power field) [HPF] NRG Automated urine sediment leukocyte count by microscopy (number/high power field) [HPF] NRG Bacteria detection in urine sediment by light microsco py FEW NRG Crystals detection in urine sediment by light microsco py NONE NRG Casts detection in urine sediment by light microscopy PRESENT NRG Mucus detection in urine sediment by light microscopy NEGATIVE NRG Complete urinalysis with reflex to culture YES NRG Hyaline casts detection in urine sediment by light asmita roscopy >50 NRG Bacterial urine culture - 05/23/17 01:45 URINE CULTURE RESULTS <10,000/ML NRG Ammonia - 05/23/17 12:10 Ammonia 54 umol/L 11-32 PT panel in platelet poor plasma by coag ulation assay - 05/23/17 12:10 Prothrombin time (PT) in platelet poor plasma by coagu lation assay 15.2 s 12.2-14.7 INR in platelet poor plasma or blood by coagulation as say 1.2 0.8-1.4 Whole blood basic metabolic panel - 05/02 08/16 04:20 Serum or plasma sodium measurement (moles/volume) 137 mmol/L 135-145 Serum or plasma potassium measurement (moles/volume) 2.5 mmol/L 3.6-5.0 Serum or plasma chloride measurement (moles/volume) 105 mmol/L 98-107 Carbon dioxide 22 mmol/L 21-32 Serum or plasma anion gap determination (moles/volume) 10 mmol/L 5-14 Serum or plasma urea nitrogen measurement (mass/volume ) 11 mg/dL 7-18 Serum or plasma creatinine measurement (mass/volume) 0.76 mg/dL 0.60-1.30 Serum or plasma urea nitrogen/creatinine mass ratio 14 NRG Serum or plasma creatinine measurement w ith calculation of estimated glomerular filtration rate > NRG Serum or plasma glucose measurement (mass/volume) 104 mg/dL 70-105 Serum or plasma calcium measurement (mass/volume) 7.8 mg/dL 8.5-10.1 Magnesium - 05/24/17 04:20 Magnesium 1.4 mg/dL 1.8-2.4 Complete blood count (CBC) with automate d white blood cell (WBC) differential - 05/25/17 06:15 Blood leukocytes automated count (number/volume) 6.0 10*3/uL 4.3-11.0 Blood erythrocytes automated count (number/volume) 3.98 10*6/uL 4.35-5.85 Venous blood hemoglobin measurement (mass/volume) 12.4 g/dL 13.3-17.7 Blood hematocrit (volume fraction) 34 % 40-54 Automated erythrocyte mean corpuscular volume 86 [ foz_us] 80-99 Automated erythrocyte mean corpuscular h emoglobin (mass per erythrocyte) 31 pg 25-34 Automated erythrocyte mean corpuscular h emoglobin concentration measurement (mass/volume) 36 g/dL 32-36 Automated erythrocyte distribution width ratio 13. 3 % 10.0- 14.5 Automated blood platelet count (count/volume) 103 10*3/uL [...] 10*3 1.0-4.0 Blood monocytes automated count (number/volume) 0. 7 10*3 0.0-1.0 Automated eosinophil count 0.1 10*3/uL 0 .0-0.3 Automated blood basophil count (count/volume) 0.0 10*3/uL 0.0-0.1 Comprehensive metabolic panel - 05/25/17 06:15 Serum or plasma sodium measurement (moles/volume) 137 mmol/L 135-145 Serum or plasma potassium measurement (moles/volume) 2.8 mmol/L 3.6-5.0 Serum or plasma chloride measurement (moles/volume) 103 mmol/L 98-107 Carbon dioxide 23 mmol/L 21-32 Serum or plasma anion gap determination (moles/volume) 11 mmol/L 5-14 Serum or plasma urea nitrogen measurement (mass/volume ) 11 mg/dL 7-18 Serum or plasma creatinine measurement (mass/volume) 0.70 mg/dL 0.60-1.30 Serum or plasma urea nitrogen/creatinine mass ratio 16 NRG Serum or plasma creatinine measurement w ith calculation of estimated glomerular filtration rate > NRG Serum or plasma glucose measurement (mass/volume) 107 mg/dL 70-105 Serum or plasma calcium measurement (mass/volume) 7.7 mg/dL 8.5-10.1 Serum or plasma total bilirubin measurement (mass/volu me) 2.4 mg/dL 0.1-1.0 Serum or plasma alkaline phosphatase gracie surement (enzymatic activity/volume) 205 U/L 40-136 Serum or plasma aspartate aminotransfera se measurement (enzymatic activity/volume) 54 U/L 5-34 Serum or plasma alanine aminotransferase measurement (enzymatic activity/volume) 30 U/L 0-55 Serum or plasma protein measurement (mass/volume) 4.7 g/dL 6.4-8.2 Serum or plasma albumin measurement (mass/volume) 2.5 g/dL 3.2-4.5 Magnesium - 05/25/17 06:15 Magnesium 1.3 mg/dL 1.8-2.4 Complete blood count (CBC) with automate d white blood cell (WBC) differential - 05/26/17 20:42 Blood leukocytes automated count (number/volume) 8.6 10*3/uL 4.3-11.0 Blood erythrocytes automated count (number/volume) 4.83 10*6/uL 4.35-5.85 Venous blood hemoglobin measurement (mass/volume) 15.0 g/dL 13.3-17.7 Blood hematocrit (volume fraction) 41 % 40-54 Automated erythrocyte mean corpuscular volume 85 [ foz_us] 80-99 Automated erythrocyte mean corpuscular h emoglobin (mass per erythrocyte) 31 pg 25-34 Automated erythrocyte mean corpuscular h emoglobin concentration measurement (mass/volume) 37 g/dL 32-36 Automated erythrocyte distribution width ratio 13. 9 % 10.0- 14.5 Automated blood platelet count (count/volume) 161 10*3/uL [...] 10*3 1.0-4.0 Blood monocytes automated count (number/volume) 0. 9 10*3 0.0-1.0 Automated eosinophil count 0.1 10*3/uL 0 .0-0.3 Automated blood basophil count (count/volume) 0.1 10*3/uL 0.0-0.1 Comprehensive metabolic panel - 05/26/17 20:42 Serum or plasma sodium measurement (moles/volume) 136 mmol/L 135-145 Serum or plasma potassium measurement (moles/volume) 3.1 mmol/L 3.6-5.0 Serum or plasma chloride measurement (moles/volume) 101 mmol/L 98-107 Carbon dioxide 24 mmol/L 21-32 Serum or plasma anion gap determination (moles/volume) 11 mmol/L 5-14 Serum or plasma urea nitrogen measurement (mass/volume ) 12 mg/dL 7-18 Serum or plasma creatinine measurement (mass/volume) 0.82 mg/dL 0.60-1.30 Serum or plasma urea nitrogen/creatinine mass ratio 15 NRG Serum or plasma creatinine measurement w ith calculation of estimated glomerular filtration rate > NRG Serum or plasma glucose measurement (mass/volume) 109 mg/dL 70-105 Serum or plasma calcium measurement (mass/volume) 8.5 mg/dL 8.5-10.1 Serum or plasma total bilirubin measurement (mass/volu me) 2.3 mg/dL 0.1-1.0 Serum or plasma alkaline phosphatase gracie surement (enzymatic activity/volume) 324 U/L 40-136 Serum or plasma aspartate aminotransfera se measurement (enzymatic activity/volume) 64 U/L 5-34 Serum or plasma alanine aminotransferase measurement (enzymatic activity/volume) 33 U/L 0-55 Serum or plasma protein measurement (mass/volume) 5.9 g/dL 6.4-8.2 Serum or plasma albumin measurement (mass/volume) 3.2 g/dL 3.2-4.5 Ammonia - 05/26/17 20:42 Ammonia 107 umol/L 11-32 Whole blood basic metabolic panel - 05/02 11/15 06:17 Serum or plasma sodium measurement (moles/volume) 137 mmol/L 135-145 Serum or plasma potassium measurement (moles/volume) 2.6 mmol/L 3.6-5.0 Serum or plasma chloride measurement (moles/volume) 103 mmol/L 98-107 Carbon dioxide 24 mmol/L 21-32 Serum or plasma anion gap determination (moles/volume) 10 mmol/L 5-14 Serum or plasma urea nitrogen measurement (mass/volume ) 10 mg/dL 7-18 Serum or plasma creatinine measurement (mass/volume) 0.74 mg/dL 0.60-1.30 Serum or plasma urea nitrogen/creatinine mass ratio 14 NRG Serum or plasma creatinine measurement w ith calculation of estimated glomerular filtration rate > NRG Serum or plasma glucose measurement (mass/volume) 97 mg/dL 70-105 Serum or plasma calcium measurement (mass/volume) 7.7 mg/dL 8.5-10.1 Ammonia - 05/27/17 06:17 Ammonia 57 umol/L 1132 Magnesium - 05/27/17 06:17 Magnesium 1.4 mg/dL 1.8-2.4 Complete blood count (CBC) with automate d white blood cell (WBC) differential - 05/28/17 05:25 Blood leukocytes automated count (number/volume) 6.4 10*3/uL 4.3-11.0 Blood erythrocytes automated count (number/volume) 3.95 10*6/uL 4.35-5.85 Venous blood hemoglobin measurement (mass/volume) 12.3 g/dL 13.3-17.7 Blood hematocrit (volume fraction) 34 % 40-54 Automated erythrocyte mean corpuscular volume 86 [ foz_us] 80-99 Automated erythrocyte mean corpuscular h emoglobin (mass per erythrocyte) 31 pg 25-34 Automated erythrocyte mean corpuscular h emoglobin concentration measurement (mass/volume) 36 g/dL 32-36 Automated erythrocyte distribution width ratio 13. 8 % 10.0- 14.5 Automated blood platelet count (count/volume) 113 10*3/uL [...] 10*3 1.0-4.0 Blood monocytes automated count (number/volume) 0. 5 10*3 0.0-1.0 Automated eosinophil count 0.2 10*3/uL 0 .0-0.3 Automated blood basophil count (count/volume) 0.1 10*3/uL 0.0-0.1 Comprehensive metabolic panel - 05/28/17 05:30 Serum or plasma sodium measurement (moles/volume) 138 mmol/L 135-145 Serum or plasma potassium measurement (moles/volume) 3.1 mmol/L 3.6-5.0 Serum or plasma chloride measurement (moles/volume) 110 mmol/L 98-107 Carbon dioxide 20 mmol/L 21-32 Serum or plasma anion gap determination (moles/volume) 8 mmol/L 5-14 Serum or plasma urea nitrogen measurement (mass/volume ) 8 mg/dL 7-18 Serum or plasma creatinine measurement (mass/volume) 0.63 mg/dL 0.60-1.30 Serum or plasma urea nitrogen/creatinine mass ratio 13 NRG Serum or plasma creatinine measurement w ith calculation of estimated glomerular filtration rate > NRG Serum or plasma glucose measurement (mass/volume) 95 mg/dL 70-105 Serum or plasma calcium measurement (mass/volume) 7.6 mg/dL 8.5-10.1 Serum or plasma total bilirubin measurement (mass/volu me) 1.9 mg/dL 0.1-1.0 Serum or plasma alkaline phosphatase gracie surement (enzymatic activity/volume) 274 U/L 40-136 Serum or plasma aspartate aminotransfera se measurement (enzymatic activity/volume) 51 U/L 5-34 Serum or plasma alanine aminotransferase measurement (enzymatic activity/volume) 27 U/L 0-55 Serum or plasma protein measurement (mass/volume) 4.5 g/dL 6.4-8.2 Serum or plasma albumin measurement (mass/volume) 2.5 g/dL 3.2-4.5 Ammonia - 05/28/17 05:30 Ammonia 63 umol/L 11-32 Magnesium - 05/28/17 05:30 Magnesium 1.6 mg/dL 1.8-2.4 Complete blood count (CBC) with automate d white blood cell (WBC) differential - 05/29/17 05:30 Blood leukocytes automated count (number/volume) 6.1 10*3/uL 4.3-11.0 Blood erythrocytes automated count (number/volume) 3.89 10*6/uL 4.35-5.85 Venous blood hemoglobin measurement (mass/volume) 12.1 g/dL 13.3-17.7 Blood hematocrit (volume fraction) 34 % 40-54 Automated erythrocyte mean corpuscular volume 87 [ foz_us] 80-99 Automated erythrocyte mean corpuscular h emoglobin (mass per erythrocyte) 31 pg 25-34 Automated erythrocyte mean corpuscular h emoglobin concentration measurement (mass/volume) 36 g/dL 32-36 Automated erythrocyte distribution width ratio 13. 6 % 10.0- 14.5 Automated blood platelet count (count/volume) 121 10*3/uL [...] 10*3 1.0-4.0 Blood monocytes automated count (number/volume) 0. 5 10*3 0.0-1.0 Automated eosinophil count 0.1 10*3/uL 0 .0-0.3 Automated blood basophil count (count/volume) 0.1 10*3/uL 0.0-0.1 Comprehensive metabolic panel - 05/29/17 05:30 Serum or plasma sodium measurement (moles/volume) 140 mmol/L 135-145 Serum or plasma potassium measurement (moles/volume) 3.3 mmol/L 3.6-5.0 Serum or plasma chloride measurement (moles/volume) 111 mmol/L 98-107 Carbon dioxide 21 mmol/L 21-32 Serum or plasma anion gap determination (moles/volume) 8 mmol/L 5-14 Serum or plasma urea nitrogen measurement (mass/volume ) 7 mg/dL 7-18 Serum or plasma creatinine measurement (mass/volume) 0.71 mg/dL 0.60-1.30 Serum or plasma urea nitrogen/creatinine mass ratio 10 NRG Serum or plasma creatinine measurement w ith calculation of estimated glomerular filtration rate > NRG Serum or plasma glucose measurement (mass/volume) 102 mg/dL 70-105 Serum or plasma calcium measurement (mass/volume) 7.8 mg/dL 8.5-10.1 Serum or plasma total bilirubin measurement (mass/volu me) 1.7 mg/dL 0.1-1.0 Serum or plasma alkaline phosphatase gracie surement (enzymatic activity/volume) 286 U/L 40-136 Serum or plasma aspartate aminotransfera se measurement (enzymatic activity/volume) 62 U/L 5-34 Serum or plasma alanine aminotransferase measurement (enzymatic activity/volume) 30 U/L 0-55 Serum or plasma protein measurement (mass/volume) 5.0 g/dL 6.4-8.2 Serum or plasma albumin measurement (mass/volume) 2.6 g/dL 3.2-4.5 Magnesium - 05/29/17 05:30 Magnesium 1.6 mg/dL 1.8-2.4 Ammonia - 05/29/17 10:30 Ammonia 29 umol/L 11-32 Acute hepatitis panel - 05/29/17 10:30 Confirmatory quantitative serum or plasm a hepatitis B virus surface antigen measurement Non-Reactive Non-Reactive Hepatitis A virus IgM antibody assay Non-Reactive Non- Reactive Hepatitis B virus core IgM antibody assay Non-Reac tive Non- Reactive Serum hepatitis C virus antibody detection Non-Cyndi ctive Non-Reactive Comprehensive metabolic panel - 04/02/18 09:10 Serum or plasma sodium measurement (moles/volume) 140 mmol/L 135-145 Serum or plasma potassium measurement (moles/volume) 4.0 mmol/L 3.6-5.0 Serum or plasma chloride measurement (moles/volume) 107 mmol/L 98-107 Carbon dioxide 24 mmol/L 21-32 Serum or plasma anion gap determination (moles/volume) 9 mmol/L 5-14 Serum or plasma urea nitrogen measurement (mass/volume ) 13 mg/dL 7-18 Serum or plasma creatinine measurement (mass/volume) 0.92 mg/dL 0.60-1.30 Serum or plasma urea nitrogen/creatinine mass ratio 14 NRG Serum or plasma creatinine measurement w ith calculation of estimated glomerular filtration rate > NRG Serum or plasma glucose measurement (mass/volume) 97 mg/dL 70-105 Serum or plasma calcium measurement (mass/volume) 9.3 mg/dL 8.5-10.1 Serum or plasma total bilirubin measurement (mass/volu me) 2.2 mg/dL 0.1-1.0 Serum or plasma alkaline phosphatase gracie surement (enzymatic activity/volume) 280 U/L 40-136 Serum or plasma aspartate aminotransfera se measurement (enzymatic activity/volume) 76 U/L 5-34 Serum or plasma alanine aminotransferase measurement (enzymatic activity/volume) 44 U/L 0-55 Serum or plasma protein measurement (mass/volume) 6.6 g/dL 6.4-8.2 Serum or plasma albumin measurement (mass/volume) 3.8 g/dL 3.2-4.5 CALCIUM CORRECTED 9.5 mg/dL 8.5-10.1 Serum or plasma [id number] r marker measurement (mass/volume) - 04/02/18 09:10 Serum or plasma [id number] r marker measurement (mass/volume) 3.2 % 0.0-8.8 CA 19-9 - 04/02/18 09:10 CA 19-9 C 19 u[iU]/mL 0-37 Complete blood count (CBC) with automate d white blood cell (WBC) differential - 07/02/18 15:36 Blood leukocytes automated count (number/volume) 5.1 10*3/uL 4.3-11.0 Blood erythrocytes automated count (number/volume) 4.13 10*6/uL 4.35-5.85 Venous blood hemoglobin measurement (mass/volume) 12.9 g/dL 13.3-17.7 Blood hematocrit (volume fraction) 37 % 40-54 Automated erythrocyte mean corpuscular volume 89 [ foz_us] 80-99 Automated erythrocyte mean corpuscular h emoglobin (mass per erythrocyte) 31 pg 25-34 Automated erythrocyte mean corpuscular h emoglobin concentration measurement (mass/volume) 35 g/dL 32-36 Automated erythrocyte distribution width ratio 14. 5 % 10.0- 14.5 Automated blood platelet count (count/volume) 146 10*3/uL [...] 10*3 1.0-4.0 Blood monocytes automated count (number/volume) 0. 7 10*3 0.0-1.0 Automated eosinophil count 0.1 10*3/uL 0 .0-0.3 Automated blood basophil count (count/volume) 0.1 10*3/uL 0.0-0.1 PT panel in platelet poor plasma by coag ulation assay - 07/02/18 15:36 Prothrombin time (PT) in platelet poor plasma by coagu lation assay 14.3 s 12.2-14.7 INR in platelet poor plasma or blood by coagulation as say 1.1 0.8-1.4 Blood lactic acid measurement (moles/vol ume) - 07/02/18 15:36 Blood lactic acid measurement [...] 5-14 Serum or plasma urea nitrogen measurement (mass/volume ) 11 mg/dL 7-18 Serum or plasma creatinine measurement (mass/volume) 0.88 mg/dL 0.60-1.30 Serum or plasma urea nitrogen/creatinine mass ratio 13 NRG Serum or plasma creatinine measurement w ith calculation of estimated glomerular filtration rate > NRG Serum or plasma glucose measurement (mass/volume) 74 mg/dL 70-105 Serum or plasma calcium measurement (mass/volume) 9.2 mg/dL 8.5-10.1 Serum or plasma total bilirubin measurement (mass/volu me) 2.3 mg/dL 0.1-1.0 Serum or plasma alkaline phosphatase gracie surement (enzymatic activity/volume) 259 U/L 40-136 Serum or plasma aspartate aminotransfera se measurement (enzymatic activity/volume) 59 U/L 5-34 Serum or plasma alanine aminotransferase measurement (enzymatic activity/volume) 28 U/L 0-55 Serum or plasma protein measurement (mass/volume) 6.6 g/dL 6.4-8.2 Serum or plasma albumin measurement (mass/volume) 3.5 g/dL 3.2-4.5 CALCIUM CORRECTED 9.6 mg/dL 8.5-10.1 Serum or plasma conjugated bilirubin+ind irect measurement (mass/volume) - 07/02/18 15:36 Bilirubin direct 1.2 mg/dL 0.0-0.3 Serum or plasma indirect bilirubin measurement (mass/v olume) 1.1 mg/dL NRG Serum or plasma troponin i.cardiac measu rement (mass/volume) - 07/02/18 15:36 Serum or plasma troponin i.cardiac measurement (mass/v olume) < ng/mL <0.028 Ammonia - 07/02/18 15:36 Ammonia 77 umol/L 11-32 THYROID STIMULATING HORMONE - 07/02/18 1 5:36 THYROID STIMULATING HORMONE 2.39 u[iU]/mL 0.35-4.94 Serum or plasma lithium measurement (mol es/volume) - 07/02/18 15:36 BNP level 97.5 pg/mL <100.0 Bacterial blood culture - 07/02/18 15:36 Bacterial blood culture NG NRG Bacterial blood culture - 07/02/18 15:43 Bacterial blood culture NG NRG Capillary blood glucose measurement by g lucometer (mass/volume) - 07/02/18 16:41 Capillary blood glucose measurement by glucometer (mas s/volume) 69 mg/dL 70-110 Complete urinalysis with reflex to cultu re - 07/02/18 19:30 Urine color determination BROWN NRG Urine clarity determination CLEAR NR G Urine pH measurement by test strip 7 5-9 Specific gravity of urine by test strip 1.010 1.016-1.022 Urine protein assay by test strip, semi-quantitative NEGATIVE NEGATIVE Urine glucose detection by automated test strip NE GATIVE NEGATIVE Erythrocytes detection in urine sediment by light micr oscopy NEGATIVE NEGATIVE Urine ketones detection by automated test strip NE GATIVE NEGATIVE Urine nitrite detection by test strip NEGATIVE NEGATIVE Urine total bilirubin detection by test strip NEGA TIVE NEGATIVE Urine urobilinogen measurement by automated test strip (mass/volume) 1 mg/dL NORMAL Urine leukocyte esterase detection by dipstick 1+ NEGATIVE Automated urine sediment erythrocyte cou nt by microscopy (number/high power field) RARE NRG Automated urine sediment leukocyte count by microscopy (number/high power field) [HPF] NRG Bacteria detection in urine sediment by light microsco py NEGATIVE NRG Crystals detection in urine sediment by light microsco py NONE NRG Casts detection in urine sediment by light microscopy NONE NRG Mucus detection in urine sediment by light microscopy MODERATE NRG Complete urinalysis with reflex to culture NO NRG Capillary blood glucose measurement by g lucometer (mass/volume) - 07/02/18 21:49 Capillary blood glucose measurement by glucometer (mas s/volume) 143 mg/dL 70-110 Complete blood count (CBC) with automate d white blood cell (WBC) differential - 07/03/18 03:50 Blood leukocytes automated count (number/volume) 4.8 10*3/uL 4.3-11.0 Blood erythrocytes automated count (number/volume) 3.78 10*6/uL 4.35-5.85 Venous blood hemoglobin measurement (mass/volume) 11.8 g/dL 13.3-17.7 Blood hematocrit (volume fraction) 34 % 40-54 Automated erythrocyte mean corpuscular volume 89 [ foz_us] 80-99 Automated erythrocyte mean corpuscular h emoglobin (mass per erythrocyte) 31 pg 25-34 Automated erythrocyte mean corpuscular h emoglobin concentration measurement (mass/volume) 35 g/dL 32-36 Automated erythrocyte distribution width ratio 14. 3 % 10.0- 14.5 Automated blood platelet count (count/volume) 144 10*3/uL [...] 10*3 1.0-4.0 Blood monocytes automated count (number/volume) 0. 6 10*3 0.0-1.0 Automated eosinophil count 0.1 10*3/uL 0 .0-0.3 Automated blood basophil count (count/volume) 0.0 10*3/uL 0.0-0.1 Comprehensive metabolic panel - 07/03/18 03:50 Serum or plasma sodium measurement (moles/volume) 137 mmol/L 135-145 Serum or plasma potassium measurement (moles/volume) 4.2 mmol/L 3.6-5.0 Serum or plasma chloride measurement (moles/volume) 106 mmol/L 98-107 Carbon dioxide 23 mmol/L 21-32 Serum or plasma anion gap determination (moles/volume) 8 mmol/L 5-14 Serum or plasma urea nitrogen measurement (mass/volume ) 11 mg/dL 7-18 Serum or plasma creatinine measurement (mass/volume) 0.83 mg/dL 0.60-1.30 Serum or plasma urea nitrogen/creatinine mass ratio 13 NRG Serum or plasma creatinine measurement w ith calculation of estimated glomerular filtration rate > NRG Serum or plasma glucose measurement (mass/volume) 101 mg/dL 70-105 Serum or plasma calcium measurement (mass/volume) 8.8 mg/dL 8.5-10.1 Serum or plasma total bilirubin measurement (mass/volu me) 2.1 mg/dL 0.1-1.0 Serum or plasma alkaline phosphatase gracie surement (enzymatic activity/volume) 245 U/L 40-136 Serum or plasma aspartate aminotransfera se measurement (enzymatic activity/volume) 55 U/L 5-34 Serum or plasma alanine aminotransferase measurement (enzymatic activity/volume) 25 U/L 0-55 Serum or plasma protein measurement (mass/volume) 5.7 g/dL 6.4-8.2 Serum or plasma albumin measurement (mass/volume) 3.1 g/dL 3.2-4.5 CALCIUM CORRECTED 9.5 mg/dL 8.5-10.1 Methicillin resistant Staphylococcus aur eus (MRSA) screening culture - 08/09/18 11:15 Methicillin resistant Staphylococcus aureus (MRSA) scr eening culture NEG NRG Complete blood count (CBC) with automate d white blood cell (WBC) differential - 05/05/19 11:05 Blood leukocytes automated count (number/volume) 7.1 10*3/uL 4.3-11.0 Blood erythrocytes automated count (number/volume) 5.07 10*6/uL 4.35-5.85 Venous blood hemoglobin measurement (mass/volume) 15.0 g/dL 13.3-17.7 Blood hematocrit (volume fraction) 43 % 40-54 Automated erythrocyte mean corpuscular volume 85 [ foz_us] 80-99 Automated erythrocyte mean corpuscular h emoglobin (mass per erythrocyte) 30 pg 25-34 Automated erythrocyte mean corpuscular h emoglobin concentration measurement (mass/volume) 35 g/dL 32-36 Automated erythrocyte distribution width ratio 14. 9 % 10.0- 14.5 Automated blood platelet count (count/volume) 96 1 0*3/uL 130-400 Automated blood platelet mean volume measurement 10.8 [foz_us] 7.4-10.4 Automated blood neutrophils/100 leukocytes 75 % 42-75 Automated blood lymphocytes/100 leukocytes 11 % 12-44 Blood monocytes/100 leukocytes 12 % 0-12 Automated blood eosinophils/100 leukocytes 2 % 0-10 Automated blood basophils/100 leukocytes 1 % 0-10 Blood neutrophils automated count (number/volume) 5.3 10*3 1.8-7.8 Blood lymphocytes automated count (number/volume) 0.8 10*3 1.0-4.0 Blood monocytes automated count (number/volume) 0. 9 10*3 0.0-1.0 Automated eosinophil count 0.1 10*3/uL 0 .0-0.3 Automated blood basophil count (count/volume) 0.0 10*3/uL 0.0-0.1 Comprehensive metabolic panel - 05/05/19 11:05 Serum or plasma sodium measurement (moles/volume) 137 mmol/L 135-145 Serum or plasma potassium measurement (moles/volume) 4.1 mmol/L 3.6-5.0 Serum or plasma chloride measurement (moles/volume) 104 mmol/L 98-107 Carbon dioxide 22 mmol/L 21-32 Serum or plasma anion gap determination (moles/volume) 11 mmol/L 5-14 Serum or plasma urea nitrogen measurement (mass/volume ) 12 mg/dL 7-18 Serum or plasma creatinine measurement (mass/volume) 0.85 mg/dL 0.60-1.30 Serum or plasma urea nitrogen/creatinine mass ratio 14 NRG Serum or plasma creatinine measurement w ith calculation of estimated glomerular filtration rate > NRG Serum or plasma glucose measurement (mass/volume) 107 mg/dL 70-105 Serum or plasma calcium measurement (mass/volume) 9.1 mg/dL 8.5-10.1 Serum or plasma total bilirubin measurement (mass/volu me) 2.5 mg/dL 0.1-1.0 Serum or plasma alkaline phosphatase gracie surement (enzymatic activity/volume) 259 U/L 40-136 Serum or plasma aspartate aminotransfera se measurement (enzymatic activity/volume) 111 U/L 5-34 Serum or plasma alanine aminotransferase measurement (enzymatic activity/volume) 76 U/L 0-55 Serum or plasma protein measurement (mass/volume) 6.6 g/dL 6.4-8.2 Serum or plasma albumin measurement (mass/volume) 3.5 g/dL 3.2-4.5 CALCIUM CORRECTED 9.5 mg/dL 8.5-10.1 Ammonia - 05/05/19 11:05 Ammonia 31 umol/L 11-32 Fibrin D-dimer FEU measurement in platel et poor plasma (mass/volume) - 05/05/19 11:05 Fibrin D-dimer FEU measurement in platelet poor plasma (mass/volume) 12.73 ug/mL 0.00-0.49 PT panel in platelet poor plasma by coag ulation assay - 05/05/19 11:34 Prothrombin time (PT) in platelet poor plasma by coagu lation assay 14.2 s 12.2-14.7 INR in platelet poor plasma or blood by coagulation as say 1.1 0.8-1.4 Activated partial thromboplastin time (a PTT) in platelet poor plasma bycoagulation assay - 05/05/19 11:34 Activated partial thromboplastin time (a PTT) in platelet poor plasma bycoagulation assay 39 s 24-35 Comprehensive Metabolic Panel - 05/06/19 05:25 Albumin 3.1 g/dL 3.6-5.1 ALP 238 U/L 35-130 ALT 67 U/L 6-45 Anion Gap 13 6-14 AST 93 U/L 2-40 BUN 11 mg/dL 5-25 Calcium 8.0 mg/dL 8.3-10.4 Chloride 106 mmol/L 95-114 CO2 22 mEq/L 22-33 Creat 0.80 mg/dL 0.50-1.50 eGFR 101 mL/min/1.73m2 >59 Globulin 2.6 g/dL 2.3-3.5 Glucose 125 mg/dL 70-110 Osmo 284 280-295 Potassium 4.2 mmol/L 3.5-5.3 Sodium 137 mmol/L 134-148 TBil 2.2 mg/dL 0.2-1.2 TP 5.7 g/dL 6.0-8.3 Encounters ACCT No. Visit Date/Time Discharge Status Pt. Type Provider Facility Loc./Unit Complaint [id number] 05/05/2019 14:16:00 05/06/2019 12:40 :00 DIS Outpatient Augusto [facility] MED-SURG [id number] 05/05/2019 14:39:12 Document Registration [id number] 09/03/2019 07:39:00 23:59:59 CLS Outpatient OZIEL GREENBERG APRN [facility] RAD CIRRHOSIS OF LIVER [id number] 05/05/2019 10:34:00 14:35:00 DIS Emergency TWYLA MORTON MD [facility] ER CALF PAIN/SWELL ING [id number] 02/26/2019 10:40:00 13:40:00 DIS Outpatient MOSER BERNICE JOLLEY [facility] ENDO ULCERATIVE COLITIS, AISHA GHT RED BLOOD PER RECTUM [id number] 02/20/2019 15:40:00 15:52:00 DIS Outpatient MOSER BERNICE JOLLEY [facility] PREOP COLONOSCOPY [id number] 08/09/2018 10:47:00 16:10:00 DIS Outpatient MOSER BERNICE JOLLEY [facility] SDC LIPOMAS TO RIGHT UPPER EXTREMITY AND PUBIC AREA [id number] 08/06/2018 06:54:00 23:59:59 CLS Outpatient MOSER BERNICE JOLLEY [facility] PREOP LIPOMAS TO RIGHT UPPER EXTREMITY AND PUBIC AREA [id number] 07/02/2018 15:00:00 09:45:00 DIS Inpatient DIANA BARRIGA DO, V [facility] ICU CHRONIC LIVER DISEASE [id number] 04/02/2018 08:56:00 018 23:59:59 CLS Outpatient OZIEL GREENBERG APRN [facility] RAD CHRONIC LIVER DISEASE [id number] 10/03/2017 07:41:00 23:59:59 CLS Outpatient SPENSER RIOS MD [facility] RAD OTHER CIRRHOSIS OF LIVE R [id number] 05/26/2017 22:07:00 018 11:55:00 DIS Inpatient DIANA BARRIGA DO, V ia [facility] 4TH HEPATIC ENCEPHALOPATHY [id number] 05/23/2017 03:52:00 018 15:07:00 DIS Inpatient KELLY TRUJILLO, JENN Cuevas [facility] 4TH HEPATIC ENCEPHALOPATHY; UTI [id number] 09/21/2016 09:30:00 017 23:59:59 CLS Preadmit DIANA BARRIGA DO Vi a [facility] RAD R74.9 ABN SERUM ENZYME LEVEL [id number] 02/01/2016 09:04:00 12:15:00 DIS Outpatient CORIE BARR MD [facility] HISTORY OF POLYPS [id number] 01/27/2016 05:46:00 016 12:45:00 DIS Outpatient CORIE BARR MD [facility] PREOP HISTORY OF POLYPS [id number] 01/01/2013 18:09:00 013 23:59:59 CLS Outpatient [id number] 09/27/2019 16:39:00 Document Registration [id number] 03/15/2016 10:36:00 Document Registration [id number] 02/01/2016 09:03:00 Document Registration [id number] 11/30/2010 05:41:00 Document Registration [id number] 11/25/2010 10:44:00 Document Registration
--- OUTSIDE RECORDS SUMMARY | 2019-09-27 16:57 | XMS REPORT | Clinical Summary ---
Author Author [facility] Organization [facility] Address Unknown Phone Unavailable Care Team Providers Care Hosted Services Analyst Name Role Phone Ivonne Casas PCP Alfred Chaparro MD Unavailable Source Comments Some departments are not documenting in the electronic medical record. If you d o not see the information that you expected, contact Release of Information in [facility] [employer] Information Management department at [phone] for further assistan ce in locating additional records.[facility] Allergies No Known Allergies Medications End Date [...] and a full glass of water. Active citalopram hydrobromide Take 25 mg by 0 (CELEXA PO) mouth daily. Active vitamin A 10,000 unit Take one 90 capsule 0 capsuleIndications: capsule by 9 vitamin A deficiency mouth daily. Indications: a low amount of vitamin A in the body Active Problems Problem Noted Date Primary sclerosing cholangitis 03/13/2018 Ulcerative colitis 03/13/2018 Essential hypertension 03/13/2018 Chronic liver disease 03/07/2018 Encounters Care Team Description Date Type Specialty Maxwell, Racquel Other cirrhosis of liver (HCC); Cirrhosis of liver without ascites, unspecified hepatic cirrhosis type (HCC) 09/27/2019 Orders Only Transplant Surgery Kelley Black LPN Other cirrhosis of liver (HCC); Cirrhosis of liver without ascites, unspecified hepatic cirrhosis type (HCC) 09/24/2019 Orders Only Hepatology from Last 3 Months Social History Date Tobacco Use Types Packs/Day Years Used Former Smoker Smokeless Tobacco: Never Used Tobacco Cessation: Counseling Given: Yes Drinks/Week oz/Week Comments Alcohol Use No Sex Assigned at Date Recorded Not on file Industry Job Start Date Occupation Not on file Not on file Not on file Travel End Travel History Travel Start No recent travel history available. Last Filed Vital Signs Reading Time Taken Comments Vital Sign 126/63 03/01/2019 9:31 AM CDT Blood Pressure 65 03/01/2019 9:31 AM CDT Pulse 36.4 C (97.6 F) 03/01/2019 9:31 AM CDT Temperature 16 03/01/2019 9:31 AM CDT Respiratory Rate 94% 03/01/2019 9:31 AM CDT Oxygen Saturation - - Inhaled Oxygen Concentration 129.7 kg (286 lb) 03/01/2019 9:31 AM CDT Weight 177.8 cm (5' 10") 03/01/2019 9:31 AM CDT Height 41.04 03/01/2019 9:31 AM CDT Body Mass Index Plan of Treatment Health Maintenance Due Date Last Done Comments HIV SCREENING 1981 DTAP/TDAP VACCINES (1 - 1984 Tdap) HEPATITIS C SCREENING 1984 PHYSICAL (COMPREHENSIVE) 1984 EXAM COLORECTAL CANCER 2016 SCREENING SHINGLES RECOMBINANT 2016 VACCINE (1 of 2) INFLUENZA VACCINE 01/30/2020 05/23/2017 Procedures Comments Procedure Name Priority Date/Time Associated Diag nosis US ABDOMEN COMPLETE Routine 09/03/2019 Other cirr hosis of liver (HCC) Cirrhosis of liver without ascites, unspecified hepatic cirrhosis type (HCC) COMPREHENSIVE METABOLIC Routine 08/13/2019 Other cirrhosis of liver PANEL 8:25 AM CDT (HCC) Cirrhosis of liver without ascites, unspecified hepatic cirrhosis type (HCC) CBC AND DIFF Routine 08/13/2019 Other cirrhosis of liver 8:25 AM CDT (HCC) Cirrhosis of liver without ascites, unspecified hepatic cirrhosis type (HCC) from Last 3 Months Results * US ABDOMEN COMPLETE (09/03/2019) Narrative Performed At This result has an attachment that is n ot available. * CBC AND DIFF (08/13/2019 8:25 AM CDT) White Blood 5.64 5.00 - 10.00 [facility] Cells RBC 5.10 4.20 - 5.40 [facility] Hemoglobin 15.2 14.0 - 17.0 [facility] Hematocrit 44.5 42.0 - 52.0 [facility] MCV 87.3 80.0 - 97.0 [facility] MCH 29.8 1 - 31.0 pg [facility] MCHC 34.2 32.0 - 36.0 pg [facility] RDW 14.9 (H) 11.6 - 14.8 [facility] Platelet Count 139 (L) 150 - 400 [facility] Neutrophils 69.3 37.0 - 80.0 [facility] Lymphocytes 16.1 10.0 - 50.0 [facility] Monocytes 12.6 (H) 0.0 - 12 % [facility] Eosinophil 1.1 0.0 - 7.0 % [facility] Basophil 0.9 0.0 - 2.5 [facility] Absolute 3.91 2.00 - 6.90 [facility] Neutrophil Count Absolute Lymph 0.91 0.60 - 3.40 % [facility] Count Absolute 0.7 0.0 - 0.9 [facility] Monocyte Count Absolute 0.1 0.0 - 0.7 [facility] Eosinophil Count Absolute 0.1 0.0 - 0.2 [facility] Basophil Count Specimen Blood Narrative Performed At [facility] Lab Verified by Racquel Arreola on 09/27/2019. Performing Organization Address City/State/Zipcode Ph one Number [facility] * COMPREHENSIVE METABOLIC PANEL (08/13/2019 8:25 AM CDT) Sodium 138 132 - 145 [facility] Potassium 5.2 3.5 - 5.5 [facility] Chloride 104 95 - 110 [facility] CO2 28.0 24.0 - 34.0 [facility] Anion Gap 11 6 - 14 [facility] Glucose 92 60 - 125 [facility] Creatinine 0.9 0.6 - 1.5 [facility] eGFR Non 90 [facility] Blood Urea 12 5 - 25 mg/dL [facility] Nitrogen Calcium 9.0 8.5 - 10.8 [facility] Alk Phosphatase 225 (H) 30 - 115 [facility] AST (SGOT) 67 (H) 0 - 40 [facility] ALT (SGPT) 39 0 - 50 [facility] Total Bilirubin 1.8 (H) 0.1 - 1.4 [facility] Albumin 3.4 (L) 3.5 - 5.5 [facility] Total Protein 6.0 5.0 - 8.0 [facility] Specimen Blood Narrative Performed At [facility] Verified by Racquel Arreola on 09/27/2019. 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
--- OUTSIDE RECORDS SUMMARY | 2019-09-27 16:57 | XMS REPORT | Encounter Summary ---
Author Author [facility] Organization [facility] Address Unknown Phone Unavailable Care Team Providers Care Records Management Director Name Role Phone Ivonne Casas DO PCP Alfred Chaparro MD Unavailable Encounter Details Care Team Description Date Type Department Maxwell, Racquel Other cirrhosis of liver (HCC); Cirrhosis of liver without ascites, unspecified hepatic cirrhosis type (HCC) 09/27/2019 Orders Only The [address] [address] Social History Date Tobacco Use Types Packs/Day [...] Procedure Name Priority Date/Time Associated Diag nosis CBC AND DIFF Routine 08/13/2019 Other cirrhosis of liver 8:25 AM CDT (HCC) Cirrhosis of liver without ascites, unspecified hepatic cirrhosis type (HCC) COMPREHENSIVE METABOLIC Routine 08/13/2019 Other cirrhosis of liver PANEL 8:25 AM CDT (HCC) Cirrhosis of liver without ascites, unspecified hepatic cirrhosis type (HCC) documented in this encounter Results * COMPREHENSIVE METABOLIC PANEL (08/13/2019 8:25 AM [...] City/State/Zipcode Ph one Number [facility] * CBC AND DIFF (08/13/2019 8:25 AM [...] Address City/State/Zipcode Ph one Number [facility] documented in this encounter Visit Diagnoses Diagnosis Cirrhosis of liver without ascites, uns pecified hepatic cirrhosis type (HCC) documented in this encounter
[2019-09-27 16:59] LABS: ALBUMIN 3.3 GM/DL (3.2-4.5); CHLORIDE 105 MMOL/L (98-107); POTASSIUM 4.4 MMOL/L (3.6-5.0); SODIUM 135 MMOL/L (135-145)
[2019-09-27 17:00] LABS: AMMONIA 42 UMOL/L (11-32); CALCIUM 8.6 MG/DL (8.5-10.1)
[2019-09-27 17:01] LABS: GLUCOSE 87 MG/DL (70-105); TOTAL PROTEIN 6.3 GM/DL (6.4-8.2)
[2019-09-27 17:02] LABS: CARBON DIOXIDE 23 MMOL/L (21-32)
[2019-09-27 17:03] LABS: BILIRUBIN,TOTAL 1.7 MG/DL (0.1-1.0)
[2019-09-27 17:04] LABS: ALKALINE PHOSPHATASE 199 U/L (40-136)
[2019-09-27 17:05] LABS: CREATININE SERUM 0.86 MG/DL (0.60-1.30); GFR ESTIMATED > 60
[2019-09-27 17:06] LABS: BUN/CREATININE RATIO 12
[2019-09-27 17:08] LABS: ALANINE AMINOTRANSFERASE 26 U/L (0-55)
[2019-09-27] MEDS ORDERED: SLF500T PO (17:25)
[2019-09-27] MEDS ORDERED: APIX5TAB PO (17:28)
[2019-09-27] MEDS ORDERED: PATIENT MAY USE OWN MEDS, ALL MC SCH (18:15)
--- NOTE | 2019-09-27 18:51 | Diagnostic Imaging Report ---
INDICATION: Confusion. COMPARISON: 07/02/2018. EXAMINATION: Single view of the chest was obtained. FINDINGS: There is mild cardiomegaly. Portable chest shows the lungs to be well-aerated. No evidence of pulmonary edema. No pneumothorax or pleural effusion. IMPRESSION: Mild cardiac enlargement with no acute change demonstrated. Dictated by: Dictated on workstation # [id number]
[2019-09-27 19:27] VITALS: BP 127/69
[2019-09-27] MEDS: RIFAXIMIN 550 MG TABLET (XIFAXAN) PO SCH (20:15)
[2019-09-27] MEDS: APIXABAN 5 MG (ELIQUIS) TABLET PO SCH (20:15)
[2019-09-27 22:13] LABS: BILIRUBIN,URINE NEGATIVE (NEGATIVE); CLARITY,URINE CLEAR; GLUCOSE, URINE (UA) NEGATIVE (NEGATIVE); KETONES,URINE NEGATIVE (NEGATIVE); LEUKOCYTE ESTERASE ,URINE NEGATIVE (NEGATIVE); NITRITE,URINE NEGATIVE (NEGATIVE); PH,URINE 5.5 (5-9); PROTEIN,URINE NEGATIVE (NEGATIVE)
[2019-09-27 22:28] LABS: BACTERIA,URINE NEGATIVE /HPF; COLOR,URINE DARK YELLOW
[2019-09-27 23:37] VITALS: BP 117/72
[2019-09-28 04:00] VITALS: BP 121/77
[2019-09-28 06:57] LABS: BASOPHILS % (AUTO) 1 % (0-10); EOSINOPHILS # (AUTO) 0.1 10^3/uL (0.0-0.3); EOSINOPHILS % (AUTO) 2 % (0-10); HEMATOCRIT 36 % (40-54); HEMOGLOBIN 12.2 G/DL (13.3-17.7); LYMPHOCYTES # (AUTO) 0.8 X 10^3 (1.0-4.0); LYMPHOCYTES % (AUTO) 21 % (12-44); MEAN CORPUSCULAR HEMOGLOBIN 29 PG (25-34); MEAN CORPUSCULAR HGB CONC 34 G/DL (32-36); MEAN CORPUSCULAR VOLUME 86 FL (80-99); MEAN PLATELET VOLUME 10.7 FL (7.4-10.4); MONOCYTES # (AUTO) 0.6 X 10^3 (0.0-1.0); MONOCYTES % (AUTO) 15 % (0-12); NEUTROPHILS # (AUTO) 2.2 X 10^3 (1.8-7.8); NEUTROPHILS % (AUTO) 61 % (42-75); PLATELET COUNT 123 10^3/uL (130-400); WHITE BLOOD COUNT 3.7 10^3/uL (4.3-11.0)
[2019-09-28 07:02] LABS: ALBUMIN 3.1 GM/DL (3.2-4.5); CHLORIDE 107 MMOL/L (98-107); POTASSIUM 4.2 MMOL/L (3.6-5.0); SODIUM 137 MMOL/L (135-145)
[2019-09-28 07:04] LABS: CALCIUM 8.7 MG/DL (8.5-10.1)
[2019-09-28 07:05] LABS: GLUCOSE 98 MG/DL (70-105)
[2019-09-28 07:06] LABS: CARBON DIOXIDE 24 MMOL/L (21-32)
[2019-09-28 07:07] LABS: BILIRUBIN,TOTAL 1.6 MG/DL (0.1-1.0)
[2019-09-28 07:08] LABS: ALKALINE PHOSPHATASE 208 U/L (40-136)
[2019-09-28 07:09] LABS: CREATININE SERUM 0.89 MG/DL (0.60-1.30); GFR ESTIMATED > 60
[2019-09-28 07:10] LABS: BUN/CREATININE RATIO 11
[2019-09-28 07:11] LABS: ALANINE AMINOTRANSFERASE 25 U/L (0-55)
[2019-09-28 08:00] VITALS: BP 135/82
--- NOTE | 2019-09-28 08:13 | Short Stay Summary-Hospitalist ---
History of Present Illness HPI/Chief Complaint CC: Hepatic encephalopathy HPI: See bridge note for details. at bedside. All labs reviewed and everything appears stable and improved. Gentle IVF started and stopped 5 hours after infusion to prevent overload. Amm onia level was elevated but not severe so Lactulose was ordered. All home meds were restarted and patient and comfortable with DC and we will talk more about his antidepressant at the clinic next week and will comply with regular scheduled meds BID instead of missing doses as he has recently. Source: patient, family Exam Limitations: no limitations Date Seen 09/28/19 Time Seen by a Provider: 11:30 Attending Physician Ivonne Casas DO PCP Ivonne Casas DO Referring Physician Date of Admission September 27, 2019 at 16:00 Home Medications & Allergies Home Medications Reviewed patient Home Medication Reconciliation performed by pharmacy medication reconciliations news gathering technician and/or nursing. Patients Allergies have been reviewed. Allergies Allergies Coded Allergies No Known Drug Allergies (Hrcigtda04/23/19) Past Hhtgaly-Wjxkqr-Jixhbw Hx Past Med/Social Hx: Reviewed Nursing Past Med/Soc Hx, Reviewed and Corrections made Patient Social History Marrital Status: Employed/Student: unemployed Alcohol Use: Denies Use Recreational Drug Use: No Smoking Status: Former Smoker Former Smoker, Quit: May 01, 2015 Type Used: Cigarettes 2nd Hand Smoke Exposure: No Physical Abuse Screen: No Sexual Abuse: No Recent Foreign Travel: No Contact w/other who traveled: No Recent Hopitalizations: No Recent Infectious Disease Expo: No Immunizations Up To Date Date of Influenza Vaccine: May 23, 2017 Seasonal Allergies Seasonal Allergies: No Past Medical History Respiratory: Sleep Apnea Currently Using CPAP: Yes Cardiac: Hypertension Sexually Transmitted Disease: No HIV/AIDS: No Gastrointestinal: Colitis, Gastroesophageal Reflux, Liver Disease/Jaundice, Chronic Diarrhea, Polyps, Cirrhosis Loss of Vision: Denies Hearing Impairment: Denies Psychosocial: Anxiety Skin/Integumentary: Psoriasis History of Blood Disorders: No Adverse Reaction to Blood Jackson: No (N/A) Family History Cardiovascular disease 19 FATHER Diabetes mellitus 19 FATHER FH: hypertension 19 MOTHER Myocardial infarction 19 FATHER 19 MOTHER G8 BROTHER No Pertinent Family Hx Review of Systems Constitutional: see HPI, dizziness, malaise, weakness Psychiatric/Neurological: Other (confusion) Physical Exam Physical Exam Vital Signs Vital Signs - First Documented 09/27/19 16:26 Temp 36.7 Pulse 65 Resp 17 B/P (MAP) 138/71 Pulse Ox 96 O2 Delivery Room Air Capillary Refill : Less Than 3 SecondsLess Than 3 Seconds Height, Weight, BMI Height: 5'10.00" Weight: 289lbs. 0.0oz. 131.175738sc; 38.95 BMI Method:Stated General Appearance: No Apparent Distress, WD/WN, Chronically ill, Obese Eyes: Bilateral Eye Normal Inspection, Bilateral Eye PERRL HEENT: PERRL/EOMI, Normal ENT Inspection, Pharynx Normal Neck: Full Range of Motion, Normal Inspection, Non Tender, Supple, Carotid Bruit Respiratory: Chest Non Tender, Lungs Clear, Normal Breath Sounds, No Accessory Muscle Use, No Respiratory Distress Cardiovascular: Regular Rate, Rhythm, No Edema, No Gallop, No JVD, No Murmur, Normal Peripheral Pulses Gastrointestinal: Normal Bowel Sounds, No Organomegaly, No Pulsatile Mass, Non Tender, Soft Back: Normal Inspection, No CVA Tenderness, No Vertebral Tenderness Extremity: Normal Capillary Refill, Normal Inspection, Normal Range of Motion, Non Tender, No Calf Tenderness, No Pedal Edema Neurologic/Psychiatric: Alert, Oriented x3, No Motor/Sensory Deficits, Normal Mood/Affect Skin: Normal Color, Warm/Dry Lymphatic: No Adenopathy Results Results/Procedures Labs Laboratory Tests 09/27/19 16:40 09/28/19 06:43 Patient resulted labs reviewed. 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
[2019-09-28] MEDS ORDERED: LACTULOSE SYRUP 10GM/15ML (ENULOSE) 30ML UDC PO ONE (08:15)
[2019-09-28] MEDS ORDERED: Omeprazole 40 MG PO SCH (09:00)
[2019-09-28] MEDS ORDERED: POTASSIUM CHLORIDE PO SCH (09:00)
[2019-09-28] MEDS ORDERED: Bisoprolol Fumarate 10 MG PO SCH (09:00)
[2019-09-28] MEDS ORDERED: sulfaSALAzine 500 MG (AZULFIDINE) TAB PO SCH (09:00)
[2019-09-28] MEDS ORDERED: amLODIPine 5 MG (NORVASC) TAB PO SCH (09:00)
[2019-09-28] MEDS: APIXABAN 5 MG (ELIQUIS) TABLET PO SCH (09:23)
[2019-09-28] MEDS: RIFAXIMIN 550 MG TABLET (XIFAXAN) PO SCH (09:24)
[2019-09-28 12:00] VITALS: BP 130/78
[2019-09-28] MEDS ORDERED: LACT20SO2 PO (12:01)
--- NOTE | 2019-09-28 12:30 | NUR ---
DISMISSED PER W/C, ACCOMPANIED BY , DISCHARGE INSTRUCTIONS GIVEN, VERBALIZED UNDERSTANDING, INSTRUCTED ON PRESCRIPTION AT [facility] FOR [facility], IV DC, SITE WITHOUT REDNESS OR SWELLING,
[2019-09-28 12:36] VITALS: BP 130/78
[2019-09-28] MEDS ORDERED: LACTULOSE SYRUP 10GM/15ML (ENULOSE) 30ML UDC PO SCH (13:00)
== END 2019-09-28 12:30 | disposition home or self-care (01) ==
LOC: 4TH 16:00
PROVIDERS: ADMIT Internal Medicine; ATTEND Internal Medicine
DX: K72.90 Hepatic failure, unspecified without coma (principal); K74.69 Other cirrhosis of liver; K83.01 Primary sclerosing cholangitis; K51.90 Ulcerative colitis, unspecified, without complications; G47.30 Sleep apnea, unspecified; I10 Essential (primary) hypertension; K21.9 Gastro-esophageal reflux disease without esophagitis; K59.09 Other constipation; F32.9 Major depressive disorder, single episode, unspecified; Z91.14 Patient's other noncompliance with medication regimen; Z87.891 Personal history of nicotine dependence; Z83.3 Family history of diabetes mellitus
CPT/HCPCS: 36415; 71045; 80053; 81000; 82140; 83605; 84145; 85025; 99211; G0378

== ENCOUNTER → 2019-12-30 | Outpatient (CLI) | payer OTHER, MEDICARE ==
[~2019-12-30] MED LIST changes: +APIX5TAB PO
== END ==
LOC: LABNPT 06:00
PROVIDERS: ATTEND Otolaryngology Otolaryngology/Facial Plastic Surgery
DX: G47.33 Obstructive sleep apnea (adult) (pediatric) (principal); Z20.828 Contact with and (suspected) exposure to other viral communicable diseases
CPT/HCPCS: 87635

== ENCOUNTER 2020-01-18 12:21 | Emergency (ER) | payer MEDICARE ==
[~2020-01-18] VITALS: Ht 180 cm; Wt 121.0 kg
--- NOTE | 2020-01-18 12:34 | ED General ---
General Chief Complaint: Trauma-Non Activation Stated Complaint: FALL - L SIDE RIB PAIN Nursing Triage Note: Patient reports getting into a hammick and falling out of it. States about 2 ft fall. c/o L side pain with deep breathing. denies hitting head or LOC Nursing Sepsis Screen: No Definite Risk History of Present Illness Date Seen by Provider: Jan 18, 2020 Time Seen by Provider: 12:29 Initial Comments This a healthy-appearing 53-year-old male who presented after a fall from 3 feet. States he was trying to climb in the hammock when it turned and he landed on his side on concrete. States he heard a popping noise and had immediate sharp pain, which he rates 7 out of 10 at its worse, worse with movement and b reathing. Denies trauma to head or neck, fever, chills, cough, shortness of breath, abdominal pain, headache. Did note that his UC seemed to be flaring and was concerned about his blood level. Timing/Duration: 1/2 Hour Severity: Mild Modifying Factors: improves with Movement Associated Systoms: Denies Symptoms Allergies and Home Medications Allergies Coded Allergies: No Known Drug Allergies (Verified , 02/20/19) Home Medications Amlodipine Besylate 5 Mg Tablet, 5 MG PO DAILY, (Reported) Apixaban 5 Mg Tablet, 10 MG PO BID Prescribed by: LEONORA TINOCO on 09/27/19 1728 Bisoprolol Fumarate 10 Mg Tablet, 10 MG PO DAILY, (Reported) Citalopram Hydrobromide 20 Mg Tablet, 20 MG PO DAILY, (Reported) Cyclobenzaprine HCl 5 Mg Tablet, 5 MG PO Q8H Prescribed by: CATHRYN GARDNER on 01/18/20 1244 Hydrocortisone 30 Gm Cream..g., 30 GM RC TID Prescribed by: BERNICE MOSER on 02/26/19 1330 Lactulose 20 Gm/30 Ml Solution, 10 GM PO DAILY Prescribed by: DIANA BARRIGA on 09/28/19 1201 Magnesium Oxide 400 Mg Tablet, 400 MG PO BID, (Reported) Omeprazole 40 Mg Capsule.dr, 40 MG PO DAILY, (Reported) Potassium Chloride 10 Meq Tab.er.prt, 10 MEQ PO DAILY, (Reported) Rifaximin 550 Mg Tablet, 550 MG PO BID, (Reported) Spironolactone 25 Mg Tablet, 25 MG PO 0800,1200, (Reported) Sulfasalazine 500 Mg Tablet, 3,000 MG PO DAILY Prescribed by: LEONORA TINOCO on 09/27/19 1725 Patient Home Medication List Home Medication List Reviewed: Yes Review of Systems Review of Systems Constitutional: no symptoms reported EENTM: see HPI Respiratory: no symptoms reported, other Cardiovascular: no symptoms reported Gastrointestinal: see HPI Genitourinary: no symptoms reported Musculoskeletal: see HPI Skin: no symptoms reported Psychiatric/Neurological: No Symptoms Reported Hematologic/Lymphatic: See HPI Immunological/Allergic: no symptoms reported Past Wjkkaxf-Fkdhop-Fjsatq Hx Patient Social History Alcohol Use: Denies Use Recreational Drug Use: No Type Used: Cigarettes Former Smoker, Quit: May 01, 2015 2nd Hand Smoke Exposure: No Recent Foreign Travel: No Contact w/Someone Who Travel: No Recent Infectious Disease Expo: No Recent Hopitalizations: No Immunizations Up To Date Tetanus Booster (TDap): Unknown Date of Influenza Vaccine: May 23, 2017 Seasonal Allergies Seasonal Allergies: No Past Medical History Surgeries: Yes (ELBOW SURGERY, COLONOSCOPY,FATTY TUMORS FROM ARMS) Respiratory: Yes (SLEEP APNEA-CPAP) Sleep Apnea Currently Using CPAP: Yes Cardiac: Yes Hypertension Neurological: No Sexually Transmitted Disease: No HIV/AIDS: No Genitourinary: No Gastrointestinal: Yes Colitis, Gastroesophageal Reflux, Liver Disease/Jaundice, Chronic Diarrhea, Polyps, Cirrhosis Musculoskeletal: No Endocrine: No HEENT: Yes (GLASSES) Loss of Vision: Denies Hearing Impairment: Denies Cancer: No Psychosocial: Yes Anxiety Integumentary: Yes Psoriasis Blood Disorders: No Adverse Reaction/Blood Tranf: No (N/A) Family Medical History Cardiovascular disease 19 FATHER Diabetes mellitus 19 FATHER FH: hypertension 19 MOTHER Myocardial infarction 19 FATHER 19 MOTHER G8 BROTHER No Pertinent Family Hx Physical Exam Vital Signs Vital Signs - First Documented 01/18/20 12:24 Temp 37.0 Pulse 77 Resp 18 B/P (MAP) 144/91 (108) Pulse Ox 97 O2 Delivery Room Air Capillary Refill : Less Than 3 Seconds Height, Weight, BMI Height: 5'10.00" Weight: 289lbs. 0.0oz. 131.304693up; 37.00 BMI Method:Stated General Appearance: No Apparent Distress, WD/WN HEENT: PERRL/EOMI, Normal ENT Inspection, Pharynx Normal Neck: Full Range of Motion, Non Tender Respiratory: Chest Non Tender, Lungs Clear, Normal Breath Sounds, No Accessory Muscle Use, No Respiratory Distress; No Pleural Rub, No Wheezing Cardiovascular: Regular Rate, Rhythm, No Edema, No Gallop, Systolic Murmur Gastrointestinal: Normal Bowel Sounds, Non Tender, Soft Rectal: Deferred Back: Normal Inspection, No Vertebral Tenderness; No Decreased Range of Motion Extremity: Normal Capillary Refill, Normal Inspection, Normal Range of Motion, Non Tender Neurologic/Psychiatric: Alert, Oriented x3, No Motor/Sensory Deficits, Normal Mood/Affect Skin: Normal Color, Warm/Dry; No Ecchymosis, No Erythema, No Petechia, No Rash Progress/Results/Core Measures Suspected Sepsis Recent Fever Within 48 Hours: No Infection Criteria Present: None New/Unexplained Altered Menta: No Sepsis Screen: No Definite Risk SIRS Temperature: Pulse: 77 Respiratory Rate: 18 Laboratory Tests 01/18/20 12:40: White Blood Count 8.3 Blood Pressure 144 /91 Mean: 108 Laboratory Tests 01/18/20 12:40: Platelet Count 170 Results/Orders Lab Results Laboratory Tests Test 01/18/20 12:40 Range/Units White Blood Count 8.3 4.3-11.0 10^3/uL Red Blood Count 4.00 L 4.35-5.85 10^6/uL Hemoglobin 11.3 L 13.3-17.7 G/DL Hematocrit 33 L 40-54 % Mean Corpuscular Volume 83 80-99 FL Mean Corpuscular Hemoglobin 28 25-34 PG Mean Corpuscular Hemoglobin Concent 34 32-36 G/DL Red Cell Distribution Width 15.6 H 10.0-14.5 % Platelet Count 170 130-400 10^3/uL Mean Platelet Volume 9.4 7.4-10.4 FL Neutrophils (%) (Auto) 79 H 42-75 % Lymphocytes (%) (Auto) 9 L 12-44 % Monocytes (%) (Auto) 9 0-12 % Eosinophils (%) (Auto) 3 0-10 % Basophils (%) (Auto) 1 0-10 % Neutrophils # (Auto) 6.5 1.8-7.8 X 10^3 Lymphocytes # (Auto) 0.8 L 1.0-4.0 X 10^3 Monocytes # (Auto) 0.7 0.0-1.0 X 10^3 Eosinophils # (Auto) 0.2 0.0-0.3 10^3/uL Basophils # (Auto) 0.1 0.0-0.1 10^3/uL My Orders Orders - CATHRYN GARDNER APRN Cbc With Automated Diff (01/18/20 12:27) Ribs/Unilateral With Chest (01/18/20 12:27) Acetaminophen Tablet (Tylenol Tablet) (01/18/20 13:03) Orphenadrine Inj (Ed Only) (Norflex Inje (01/18/20 13:03) Vital Signs/I&O 01/18/20 12:24 Temp 37.0 Pulse 77 Resp 18 B/P (MAP) 144/91 (108) Pulse Ox 97 O2 Delivery Room Air Capillary Refill : Less Than 3 Seconds Blood Pressure Mean: 108 Progress Note : Progress Note Ordered radiographs of left ribs and chest. Given Tylenol 500 mg and Norflex 60 mg IM in ED for pain. Ordered CBC to evaluate H&H. ' CBC reviewed and was unremarkable. Radiographs of left ribs and chest show no acute diagnosis. At discharge I discussed with him the need to splint with a pillow to take deep breaths and prevent pneumonia, instructed to apply ice or heat 20 minutes at a time to affected area. Reviewed POC and he is agreeable with plan. Diagnostic Imaging Diagonstic Imaging: Xray Plain Films/CT/US/NM/MRI: chest, other (ribs) Comments NAME: MONICA GIBBS [facility] REC#: [id number] PT STATUS: REG ER : 1965 PHYSICIAN: CATHRYN GARDNER APRN ADMIT DATE: 01/18/20/ER Draft Date of Exam:01/18/20 RIBS/UNILATERAL WITH CHEST Indication: Chest and back pain, rib injury. Comparison: None. Findings: Single view of the chest, multiple views left ribs demonstrate clear lungs bilaterally. The heart is normal. There is no pneumothorax. Osseous structures are age-appropriate. Impression: Negative chest and left rib series. Dictated on workstation # [id number] Dict: 01/18/20 1312 Trans: 01/18/20 1315 CVB [id number] Interpreted by: GUADALUPE WOLFE Electronically signed by: Departure Impression Primary Impression: Acute costochondritis Disposition: HOME, SELF-CARE Condition: Improved Departure-Patient Inst. Decision time for Depature: 13:20 Referrals: DIANA BARRIGA DO (PCP/Family) Primary Care Physician Patient Instructions: Costochondritis (DC) Add. Discharge Instructions: Plan: 1. Discharge home. 2. May take Tylenol as needed for pain per package instructions. 3. Follow up with your primary care provider if your symptoms persist. 4. May take Flexeril 5mg as needed every 8 hours for pain. No driving while taking. 5. Return for any new or concerning symptoms. All discharge instructions reviewed with patient and/or family. Voiced understanding. Scripts Cyclobenzaprine HCl (Cyclobenzaprine HCl) 5 Mg Tablet 5 MG PO Q8H for 7 Days, #20 TAB 0 Refills Prov: CATHRYN GARDNER EMAIL CAMPAIGN SPECIALIST 01/18/20 CATHRYN GARDNER EMAIL CAMPAIGN SPECIALIST Jan 18, 2020 12:34
[2020-01-18] MEDS ORDERED: CYCL5TAB PO (12:44)
[2020-01-18 12:47] LABS: BASOPHILS # (AUTO) 0.1 10^3/uL (0.0-0.1); BASOPHILS % (AUTO) 1 % (0-10); EOSINOPHILS # (AUTO) 0.2 10^3/uL (0.0-0.3); EOSINOPHILS % (AUTO) 3 % (0-10); HEMATOCRIT 33 % (40-54); HEMOGLOBIN 11.3 G/DL (13.3-17.7); LYMPHOCYTES # (AUTO) 0.8 X 10^3 (1.0-4.0); LYMPHOCYTES % (AUTO) 9 % (12-44); MEAN CORPUSCULAR HEMOGLOBIN 28 PG (25-34); MEAN CORPUSCULAR HGB CONC 34 G/DL (32-36); MEAN CORPUSCULAR VOLUME 83 FL (80-99); MEAN PLATELET VOLUME 9.4 FL (7.4-10.4); MONOCYTES # (AUTO) 0.7 X 10^3 (0.0-1.0); MONOCYTES % (AUTO) 9 % (0-12); NEUTROPHILS # (AUTO) 6.5 X 10^3 (1.8-7.8); NEUTROPHILS % (AUTO) 79 % (42-75); PLATELET COUNT 170 10^3/uL (130-400); WHITE BLOOD COUNT 8.3 10^3/uL (4.3-11.0)
[2020-01-18] MEDS ORDERED: ORPHENADRINE 60 MG/2 ML (NORFLEX) AMP (ED ONLY) IM STA (13:03)
[2020-01-18] MEDS ORDERED: ACETAMINOPHEN 500 MG TAB (TYLENOL) PO STA (13:03)
--- NOTE | 2020-01-18 13:15 | Diagnostic Imaging Report ---
Indication: Chest and back pain, rib injury. Comparison: None. Findings: Single view of the chest, multiple views left ribs demonstrate clear lungs bilaterally. The heart is normal. There is no pneumothorax. Osseous structures are age-appropriate. Impression: Negative chest and left rib series. Dictated by: Dictated on workstation # [id number]
[2020-01-18 13:30] VITALS: BP 144/91
== END 2020-01-18 13:30 | disposition home or self-care (01) ==
LOC: EDUNIT# 12:21 → ER 12:22
DX: M94.0 Chondrocostal junction syndrome [Tietze] (principal); I10 Essential (primary) hypertension; K21.9 Gastro-esophageal reflux disease without esophagitis; Z82.49 Family history of ischemic heart disease and other diseases of the circulatory system; Z87.891 Personal history of nicotine dependence; Z79.01 Long term (current) use of anticoagulants
CPT/HCPCS: 36415; 71101; 85025

== ENCOUNTER 2020-01-23 15:54 | Inpatient (IN) | payer MEDICARE ==
[~2020-01-23] VITALS: Ht 180.4 cm; Wt 120.2 kg
[~2020-01-23 15:54] MED LIST changes: +CYCL5TAB PO
[2020-01-23] MEDS ORDERED: VENL25TA2 PO (16:56)
[2020-01-23] MEDS ORDERED: POTA10CA43 PO (16:56)
[2020-01-23] MEDS ORDERED: SLF500T PO (16:56)
[2020-01-23] MEDS ORDERED: CITA40TA11 PO (16:56)
[2020-01-23] MEDS ORDERED: CLOB15CR2 TOP (16:56)
[2020-01-23] MEDS ORDERED: VITA80006 PO (16:56)
[2020-01-23] MEDS ORDERED: LACT10SO PO (16:56)
[2020-01-23] MEDS ORDERED: APIX5TAB PO (17:04)
[2020-01-23] MEDS ORDERED: ONDANSETRON 4 MG/2 ML (SDV) Z0FRAN IVP PRN (18:00)
[2020-01-23] MEDS ORDERED: CALCIUM CARBONATE 500 MG (TUMS) TAB.CHEW PO PRN (18:00)
[2020-01-23 18:05] VITALS: BP 130/60
[2020-01-23] MEDS ORDERED: CATHETER FLUSH 10 ML SYR IV PRN (18:15)
--- NOTE | 2020-01-23 18:15 | NUR ---
MONICA GIBBS admitted to room 423-1, with an admitting diagnosis of ULCERTIVE COLITIS, POSSIBLE GI BLEED, on 01/23/[address] via [employer], accompanied by .MONICA GIBBS introduced to surroundings, call light, bed controls, phone, TV, temperature control, lights, meal times, smoking policy, visitor policy, side rail policy, bathrooms and showers. Patient Rights given to patient in the handbook. MONICA GIBBS verbalizes understanding that [facility] is not responsible for the loss or damage to any personal effects or valuables that are kept in the patients posession during their hospitalization. MONICA GIBBS verbalizes understanding of Interdisciplinary Patient Education. Patient and/or family were informed about the Rapid Response Team and its purpose.
[2020-01-23 18:29] LABS: BASOPHILS # (AUTO) 0.1 10^3/uL (0.0-0.1); BASOPHILS % (AUTO) 1 % (0-10); EOSINOPHILS # (AUTO) 0.2 10^3/uL (0.0-0.3); EOSINOPHILS % (AUTO) 3 % (0-10); HEMATOCRIT 29 % (40-54); HEMOGLOBIN 9.5 g/dL (13.3-17.7); LYMPHOCYTES # (AUTO) 1.1 10^3/uL (1.0-4.0); LYMPHOCYTES % (AUTO) 12 % (12-44); MEAN CORPUSCULAR HEMOGLOBIN 28 pg (25-34); MEAN CORPUSCULAR HGB CONC 33 g/dL (32-36); MEAN CORPUSCULAR VOLUME 85 fL (80-99); MEAN PLATELET VOLUME 9.7 fL (9.0-12.2); MONOCYTES # (AUTO) 0.8 10^3/uL (0.0-1.0); MONOCYTES % (AUTO) 9 % (0-12); NEUTROPHILS # (AUTO) 6.3 10^3/uL (1.8-7.8); NEUTROPHILS % (AUTO) 74 % (42-75); PLATELET COUNT 165 10^3/uL (130-400); WHITE BLOOD COUNT 8.6 10^3/uL (4.3-11.0)
[2020-01-23 18:35] LABS: ALBUMIN 2.9 GM/DL (3.2-4.5); CHLORIDE 104 MMOL/L (98-107); SODIUM 134 MMOL/L (135-145)
[2020-01-23 18:36] LABS: AMMONIA 49 UMOL/L (11-32)
[2020-01-23 18:38] LABS: GLUCOSE 100 MG/DL (70-105); INR 1.5 (0.8-1.4); PROTHROMBIN TIME PATIENT 18.6 SEC (12.2-14.7); TOTAL PROTEIN 5.6 GM/DL (6.4-8.2)
[2020-01-23 18:39] LABS: CARBON DIOXIDE 22 MMOL/L (21-32)
[2020-01-23 18:40] LABS: BILIRUBIN,TOTAL 1.4 MG/DL (0.1-1.0)
[2020-01-23 18:41] LABS: ALKALINE PHOSPHATASE 215 U/L (40-136); GFR ESTIMATED > 60
[2020-01-23 18:42] LABS: BUN/CREATININE RATIO 12
[2020-01-23 18:44] LABS: ALANINE AMINOTRANSFERASE 21 U/L (0-55)
[2020-01-23 18:50] LABS: ERYTHROCYTE SEDIMENTATION RATE 52 MM/HR (0-30)
[2020-01-23] MEDS: NS IV 1000 ML 1,000 ML IV SCH (19:56)
[2020-01-23] MEDS: HYDROCORTISONE 100 MG/2 ML (Solu-CORTEF) VIAL IV SCH (20:08)
[2020-01-23 20:54] VITALS: BP 130/60
[2020-01-23 23:47] VITALS: BP 111/62
[2020-01-24 03:10] VITALS: BP 117/65
[2020-01-24] MEDS: HYDROCORTISONE 100 MG/2 ML (Solu-CORTEF) VIAL IV SCH ×3 (03:11→18:26)
[2020-01-24 06:25] LABS: BASOPHILS % (AUTO) 1 % (0-10); EOSINOPHILS % (AUTO) 1 % (0-10); HEMATOCRIT 26 % (40-54); HEMOGLOBIN 8.4 g/dL (13.3-17.7); LYMPHOCYTES # (AUTO) 0.4 10^3/uL (1.0-4.0); LYMPHOCYTES % (AUTO) 8 % (12-44); MEAN CORPUSCULAR HEMOGLOBIN 28 pg (25-34); MEAN CORPUSCULAR HGB CONC 32 g/dL (32-36); MEAN CORPUSCULAR VOLUME 87 fL (80-99); MEAN PLATELET VOLUME 10.3 fL (9.0-12.2); MONOCYTES # (AUTO) 0.3 10^3/uL (0.0-1.0); MONOCYTES % (AUTO) 5 % (0-12); NEUTROPHILS # (AUTO) 4.5 10^3/uL (1.8-7.8); NEUTROPHILS % (AUTO) 83 % (42-75); PLATELET COUNT 134 10^3/uL (130-400); WHITE BLOOD COUNT 5.4 10^3/uL (4.3-11.0)
[2020-01-24 06:38] LABS: ALBUMIN 2.7 GM/DL (3.2-4.5)
[2020-01-24 06:39] LABS: CHLORIDE 107 MMOL/L (98-107); POTASSIUM 3.9 MMOL/L (3.6-5.0); SODIUM 136 MMOL/L (135-145)
[2020-01-24 06:41] LABS: GLUCOSE 180 MG/DL (70-105); TOTAL PROTEIN 5.3 GM/DL (6.4-8.2)
[2020-01-24 06:42] LABS: CARBON DIOXIDE 22 MMOL/L (21-32)
[2020-01-24 06:43] LABS: BILIRUBIN,TOTAL 0.9 MG/DL (0.1-1.0)
[2020-01-24 06:44] LABS: ALKALINE PHOSPHATASE 196 U/L (40-136)
[2020-01-24 06:45] LABS: CREATININE SERUM 0.79 MG/DL (0.60-1.30); GFR ESTIMATED > 60
[2020-01-24 06:46] LABS: BUN/CREATININE RATIO 14
[2020-01-24 06:48] LABS: ALANINE AMINOTRANSFERASE 19 U/L (0-55)
[2020-01-24 08:00] VITALS: BP 141/67
[2020-01-24] MEDS ORDERED: NON-FORMULARY MEDICATION 1 EA EA (Vitamin A 8,000 UNIT) PO SCH (09:00)
[2020-01-24] MEDS: SPIRONOLACTONE 25 MG (ALDACTONE) TAB PO SCH ×2 (09:49→20:47)
[2020-01-24] MEDS: BISOPROLOL 5 MG TAB (ZEBETA) PO SCH (09:49)
[2020-01-24] MEDS: KCL 10 MEQ TAB (MICRO K) PO SCH (09:49)
[2020-01-24] MEDS: MAGNESIUM OXIDE (MAG-OX)400 MG TAB PO SCH ×2 (09:49→20:47)
[2020-01-24] MEDS: LACTULOSE SYRUP 10GM/15ML (ENULOSE) 30ML UDC PO SCH ×2 (09:50→20:49)
[2020-01-24] MEDS: sulfaSALAzine 500 MG (AZULFIDINE) TAB PO SCH (09:50)
[2020-01-24] MEDS: amLODIPine 5 MG (NORVASC) TAB PO SCH (09:50)
[2020-01-24] MEDS: BETAMETHASONE DIPRO (AUGMENTED) 0.05% CREAM 15 GM TOP SCH ×2 (09:50→21:25)
[2020-01-24] MEDS: VENLAFAXINE 50 MG (EFFEXOR) TABLET PO SCH (09:50)
[2020-01-24] MEDS: RIFAXIMIN 550 MG TABLET (XIFAXAN) PO SCH ×2 (09:50→20:47)
[2020-01-24] MEDS: PANTOPRAZOLE 40 MG (PROTONIX) TAB PO SCH (09:50)
[2020-01-24] MEDS: NS IV 1000 ML 1,000 ML IV SCH (09:51)
[2020-01-24] MEDS ORDERED: IRON SUCROSE 200 MG/10 ML (VENOFER) VIAL IV SCH (10:15)
[2020-01-24] MEDS: ENOXAPARIN 40 MG/0.4 ML (LOVENOX) SYR SC SCH (10:45)
--- NOTE | 2020-01-24 11:25 | Physical Therapy Evaluation ---
PT Evaluation-General Medical Diagnosis Admission Date Jan 23, 2020 at 17:50 Medical Diagnosis: ulcerative colitis flair Onset Date: Jan 23, 2020 Therapy Diagnosis Therapy Diagnosis: debility Height/Weight Height (Feet): 5 Height (Inches): 10.00 Weight (Pounds): 289 Weight (Ounces): 0.0 Precautions Precautions/Isolations: Standard Precautions Referral Physician: Augusto Reason for Referral: Evaluation/Treatment Medical History Pertinent Medical History: HTN Current History direct admit from physician's clinic Reviewed History: Yes Social History Home: [facility] Current Living Status: Spouse Entry Into Home: Level Entry PT Steps Inside Home: 10 Prior Prior Level of Function SCALE: Activities may be completed with or without assistive devices. 0-Ecnboufxwz-nbnldif completes the activity by him/herself with no assistance from a helper. 5-Set-up or Clean-up Assistance-helper sets up or cleans up; patient completes activity. [place] assists only prior to or following the activity. 4-Supervision or Touching Assistance-helper provides verbal cues and/or touching/steadying and/or contact guard assistance as patient completes activity. Assistance may be provided throughout the activity or intermittently. 3-Partial/Moderate Assistance-helper does LESS THAN HALF the effort. [place] lifts, holds or supports trunk or limbs, but provides less than half the effort. 2-Substantial/Maximal Assistance-helper does MORE THAN HALF the effort. [place] lifts or holds trunk or limbs and provides more than half the effort. 4-Npnhljfry-rjisio does ALL the effort. Patient does none of the effort to complete the activity. Or, the assistance of 2 or more helpers is required for the patient to complete the activity. If activity was not attempted, code reason: 7-Patient Refused. 9-Not Applicable-not attempted and the patient did not perform the activity before the current illness, exacerbation or injury. 10-Not Attempted due to Environmental Limitations-(lack of equipment, weather restraints, etc.). 88-Not Attempted due to Medical Conditions or Safety Concerns. Bed Mobility: 6 Transfers (B,C,W/C): 6 Gait: 6 Stairs: 6 Indoor Mobility (Ambulation): Independent Stairs: Independent Prior Devices Use: None PT Evaluation-Current Subjective Patient reports he is feeling better today. Agrees to PT. Pain Numeric Pain Scale: 0-No Pain Location: No Pain Reported Objective Patient Orientation: Normal For Age Attachments: IV ROM/Strength ROM Lower Extremities bilateral LE WFL Strength Lower Extremities 5/5 grossly bilateral LE Integumentary/Posture Integumentary refer to nursing notes Bowel Incontinence: No Bladder Incontinence: No Posture WFL Neuromuscular (Tone, Coordination, Reflexes) grossly intact Sensory Vision: Wears Glasses Hearing: Functional Sensation Right Lower Extremit: Intact Sensation Left Lower Extremity: Intact Transfers Roll Left to Right (QC): 6 Sit to Lying (QC): 6 Lying to Sitting/Side of Bed(Q: 6 Sit to Stand (QC): 6 Chair/Tto-xm-Itpll Xfer(QC): 6 Gait Does the Patient Walk?: Yes Mode of Locomotion: Walk Anticipated Mode of Locomotion: Walk Walk 10 feet (QC): 6 Walk 50 ft with 2 Turns(QC): 6 Walk 150 ft (QC): 6 Distance: >500' Gait Assistive Device: None Comments/Gait Description safe and functional with no deviation Balance Sitting Static: Normal Sitting Dynamic: Normal Standing Static: Normal Standing Dynamic: Normal Assessment/Needs 54 y.o. male, is currently at independent [facility] with all gross motor skills safely and does not require skilled therapy intervention. Rehab Potential: Good PT Plan Treatment/Plan Treatment Plan: Discontinue PT, goals met Treatment Duration: Jan 24, 2020 Frequency: 1 time per week Estimated Hrs Per Day: .25 hour per day Patient and/or Family Agrees t: Yes Discharge Recommendations Therapy Discharge Recommendati: Home & Family Time/GCodes Time In: 1040 Time Out: 1051 Total Billed Treatment Time: 11 Total Billed Treatment 1 visit EVLowC 11 min RYDER MEDEIROS PT Jan 24, 2020 11:25
--- NOTE | 2020-01-24 11:36 | Occ Therapy Progress Note ---
Therapy Progress Note OT orders received and chart reviewed. OT visited with pt and family member who report pt is independent with ADLS and functional mobility at PLOF. Pt indicates he has no concerns with completing ADLs upon discharge, he feels like he is at his PLOF. Pt is independent with footwear, and indicates he is able to complete dressing without any problems. He he has been up walking with PT, stating he did not have any problems with it. According to PT evaluation, pt able to ambulate >500' without AD, independently. Pt and indicate he is at PLOF and does not require any OT services at this time. Based on pt being at PLOF, independent with functional mobility, independent with footwear, and dressing per report, no skilled OT services are indicated at this time, d/c from OT. 1, visit 1115 MALACHI MARQUEZ OT Jan 24, 2020 11:36
[2020-01-24 12:00] VITALS: BP 124/65
[2020-01-24] MEDS ORDERED: CYCL5TAB PO (12:26)
--- NOTE | 2020-01-24 12:27 | NUR ---
SPOKE WITH THE PT(PT HAS HIS BOTTLES AND A MED LIST WITH HIM), WENT THRU THE EXT MED HISTORY, AND TEXT ME A MED LIST TO COMPLETE THE MED REC PT GETS ELIQUIS SAMPLES FROM DR. MONTEMAYOR OFFICE- I COULD NOT GET THE LAST DATE HER RECEIVED SAMPLES DUE TO THE OFFICE BEING CLOSED, HOWEVER PT DOES HAVE 3 SAMPLE BOXES WITH HIM THAT WOULD BE A 21 DAY SUPPLY PT GETS XIFAXAN 550MG FROM [facility]- LAST FILL DATE WAS 11-05-2019 #180/90DS OTC MEDS: MAGNESIUM VIT A
--- NOTE | 2020-01-24 12:53 | Consultation - Surgery ---
JOAQUÍN RUIZ MED STUDENT 01/24/20 1253: History of Present Illness History of Present Illness Patient Consulted On(sindhu/time) 01/23/20 Date Seen by Provider: Jan 24, 2020 Time Seen by Provider: 07:15 Reason for Visit: blood in the stool History of Present Illness Librado is a 54 yo M with ulcerative colitis, liver failure, and Eliquis use from history DVT who presents with complaint of blood in the stool. He states he ran out of sulfasalazine about 16 days ago and has had 13 days of diarrhea, the last 12 of which have had bright red blood. he has 2 or more bms per day. The patient states he has felt fatigued over the past 2 weeks and fell hitting his ribs. He was seen in the ER 01/17 (6 days ago) for that fall with CXR showing no rib fractures. The patient states his left rib pain is improving. He denies fever, chills, nausea, vomiting, chest pain, and abdominal pain. Allergies and Home Medications Allergies Coded Allergies: No Known Drug Allergies (Verified , 02/20/19) Home Medications Amlodipine Besylate 5 Mg Tablet, 5 MG PO DAILY, (Reported) Apixaban 5 Mg Tablet, 5 MG PO BID, (Reported) Bisoprolol Fumarate 10 Mg Tablet, 10 MG PO DAILY, (Reported) Citalopram Hydrobromide 40 Mg Tablet, 40 MG PO DAILY, (Reported) Clobetasol Propionate 15 Gm Cream..g., 1 APPLIC TOP BID PRN for RASH, (Reported) Cyclobenzaprine HCl 5 Mg Tablet, 5 MG PO Q8H PRN for MUSCLE SPASMS, (Reported) Lactulose 10 Gm/15 Ml Solution, 15 ML PO BID PRN for CONSTIPATION-3RD LINE, (Reported) Magnesium Oxide 400 Mg Tablet, 400 MG PO BID, (Reported) Omeprazole 40 Mg Capsule.dr, 40 MG PO DAILY, (Reported) Potassium Chloride 10 Meq Capsule.er, 10 MEQ PO 1200, (Reported) Rifaximin 550 Mg Tablet, 550 MG PO BID, (Reported) Spironolactone 25 Mg Tablet, 25 MG PO 0800,1200, (Reported) Sulfasalazine 500 Mg Tablet, 3,000 MG PO HS, (Reported) Venlafaxine HCl 25 Mg Tablet, 25 MG PO DAILY, (Reported) Vitamin A 8,000 Unit Capsule, 8,000 UNIT PO DAILY, (Reported) Past Drqeufz-Bdywlu-Hnawsg Hx Patient Social History Former Smoker, Quit: May 01, 2015 Type Used: Cigarettes 2nd Hand Smoke Exposure: No Recent Foreign Travel: No Contact w/Someone Who Travel: No Recent Hopitalizations: No Immunizations Up To Date Tetanus Booster (TDap): Unknown Date of Influenza Vaccine: Jan 17, 2020 Seasonal Allergies Seasonal Allergies: No Surgeries History of Surgeries: Yes Respiratory History of Respiratory Disorde: No Respiratory Disorders: Sleep Apnea Cardiovascular History of Cardiac Disorders: Yes Cardiac Disorders: Hypertension Neurological History of Neurological Disord: No Reproductive System Sexually Transmitted Disease: No HIV/AIDS: No Genitourinary History of Genitourinary Disor: No Gastrointestinal History of Gastrointestinal Di: Yes Gastrointestinal Disorders: Colitis Musculoskeletal History of Musculoskeletal Dis: No Endocrine History of Endocrine Disorders: No HEENT History of HEENT Disorders: Yes (GLASSES) Loss of Vision: Bilateral Hearing Impairment: Hard of Hearing Cancer History of Cancer: No Psychosocial History of Psychiatric Problem: No Behavioral Health Disorders: Anxiety Integumentary History of Skin or Integumenta: Yes Skin/Integumentary Disorders: Psoriasis Blood Transfusions History of Blood Disorders: No Adverse Reaction to a Blood Tr: No (N/A) Family Medical History Significant Family History: No Pertinent Family Hx Family Medial History: Cardiovascular disease 19 FATHER Diabetes mellitus 19 FATHER FH: hypertension 19 MOTHER Myocardial infarction 19 FATHER 19 MOTHER G8 BROTHER Review of Systems-General Constitutional: No chills, No fever EENTM: No ear pain, No blurred vision, No double vision Respiratory: No cough, No short of breath Cardiovascular: No chest pain, No edema Gastrointestinal: No abdominal pain, No constipation; diarrhea; No nausea, No v omiting; other (bright red blood in stool) Genitourinary: No frequency, No hematuria Musculoskeletal: muscle pain (left lower ribs) Skin: No change in color, No change in hair/nails, No rash Psychiatric/Neurological: Denies Anxiety, Denies Depressed All Other Systems Reviewed Negative Unless Noted: Yes Physical Exam-General Problems Physical Exam Vital Signs Vital Signs - First Documented 01/23/20 18:05 Temp 36.7 Pulse 71 Resp 16 B/P (MAP) 130/60 Pulse Ox 97 O2 Delivery Room Air Capillary Refill : Less Than 3 Seconds General Appearance: WD/WN, no apparent distress, obese Respiratory: chest non-tender, lungs clear Cardiovascular: regular rate, rhythm, no edema, no gallop, no JVD Gastrointestinal: normal bowel sounds, soft; No distended, No guarding, No rebound; tenderness (mild LLQ tenderness), other (faint lower abdominal striae ) Extremities: normal range of motion, non-tender, normal inspection, no pedal edema, no calf tenderness Neurologic/Psychiatric: alert, normal mood/affect, oriented x 3 Skin: normal color, warm/dry Lymphatic: no adenopathy Data Review Labs Laboratory Tests 01/23/20 18:14: White Blood Count 8.6, Red Blood Count 3.38L, Hemoglobin 9.5L, Hematocrit 29L, Mean Corpuscular Volume 85, Mean Corpuscular Hemoglobin 28, Mean Corpuscular Hemoglobin Concent 33, Red Cell Distribution Width 15.2H, Platelet Count 165, Mean Platelet Volume 9.7, Immature Granulocyte % (Auto) 2, Neutrophils (%) (Auto) 74, Lymphocytes (%) (Auto) 12, Monocytes (%) (Auto) 9, Eosinophils (%) (Auto) 3, Basophils (%) (Auto) 1, Neutrophils # (Auto) 6.3, Lymphocytes # (Auto) 1.1, Monocytes # (Auto) 0.8, Eosinophils # (Auto) 0.2, Basophils # (Auto) 0.1, Immature Granulocyte # (Auto) 0.2H, Erythrocyte Sedimentation Rate 52H, Prothrombin Time 18.6H, INR Comment 1.5H, Activated Partial Thromboplast Time 51H, Sodium Level 134L, Potassium Level 4.0, Chloride Level 104, Carbon Dioxide Level 22, Anion Gap 8, Blood Urea Nitrogen 11, Creatinine 0.90, Estimat Glomerular Filtration Rate > 60, BUN/Creatinine Ratio 12, Glucose Level 100, Lactic Acid Level 1.36, Calcium Level 8.0L, Corrected Calcium 8.9, Total Bilirubin 1.4H, Aspartate Amino Transf (AST/SGOT) 44H, Alanine Aminotransferase (ALT/SGPT) 21, Alkaline Phosphatase 215H, Ammonia 49H, C-Reactive Protein High Sensitivity 7.34H, Total Protein 5.6L, Albumin 2.9L, Procalcitonin 0.09 01/24/20 06:15: White Blood Count 5.4, Red Blood Count 3.04L, Hemoglobin 8.4L, Hematocrit 26L, Mean Corpuscular Volume 87, Mean Corpuscular Hemoglobin 28, Mean Corpuscular Hemoglobin Concent 32, Red Cell Distribution Width 15.1H, Platelet Count 134, Mean Platelet Volume 10.3, Immature Granulocyte % (Auto) 2, Neutrophils (%) (Auto) 83H, Lymphocytes (%) (Auto) 8L, Monocytes (%) (Auto) 5, Eosinophils (%) (Auto) 1, Basophils (%) (Auto) 1, Neutrophils # (Auto) 4.5, Lymphocytes # (Auto) 0.4L, Monocytes # (Auto) 0.3, Eosinophils # (Auto) 0.0, Basophils # (Auto) 0.0, Immature Granulocyte # (Auto) 0.1, Sodium Level 136, Potassium Level 3.9, Chloride Level 107, Carbon Dioxide Level 22, Anion Gap 7, Blood Urea Nitrogen 11, Creatinine 0.79, Estimat Glomerular Filtration Rate > 60, BUN/Creatinine Ratio 14, Glucose Level 180H, Calcium Level 8.0L, Corrected Calcium 9.0, Total Bilirubin 0.9, Aspartate Amino Transf (AST/SGOT) 37H, Alanine Aminotransferase (ALT/SGPT) 19, Alkaline Phosphatase 196H, Total Protein 5.3L, Albumin 2.7L Assessment/Plan Assessment/Plan Admission Diagonsis ulcerative colitis flare bright red blood per rectum anemia Assessment/Plan ulcerative colitis flare bright red blood per rectum anemia end stage hepatic disease history DVT on Eliquis IVF and corticosteroids abominal XRay to exclude toxic megacolon monitor anemia transfuse if HGB <8 stool cultures conservative measures, no immediate colonoscopy Clinical Quality Measures DVT/VTE Risk/Contraindication: Risk Factor Score Per Nursin RFS Level Per Nursing on Admit: 2=Moderate Contraindications-Pharm: Other *list below* Other: gi bleed BERNICE ZEPEDA DO 01/24/202100: History of Present Illness History of Present Illness History of Present Illness Consult requested by Dr. Casas for ulcerative colitis blood in stool. Patient is a 54-year-old male with ulcerative colitis liver disease history of DVT on Eliquis. Patient states about 13 days ago began having diarrhea. For the last 12 he has been having bright red blood per stool. He did have about 2 bowel movements that were bloody per day. Patient states nothing was seem to make it better or worse that he know of. Patient just been feeling weak and fatigued. Patient did run out of his sulfasalazine for 3 days. No other complaints at this time except for some rib pain after fall. Patient anticoagulation on hold and has been started on steroids. Allergies and Home Medications Allergies Coded Allergies: No Known Drug Allergies (Verified , 02/20/19) Home Medications Amlodipine Besylate 5 Mg Tablet, 5 MG PO DAILY, (Reported) Apixaban 5 Mg Tablet, 5 MG PO BID, (Reported) Bisoprolol Fumarate 10 Mg Tablet, 10 MG PO DAILY, (Reported) Citalopram Hydrobromide 40 Mg Tablet, 40 MG PO DAILY, (Reported) Clobetasol Propionate 15 Gm Cream..g., 1 APPLIC TOP BID PRN for RASH, (Reported) Cyclobenzaprine HCl 5 Mg Tablet, 5 MG PO Q8H PRN for MUSCLE SPASMS, (Reported) Lactulose 10 Gm/15 Ml Solution, 15 ML PO BID PRN for CONSTIPATION-3RD LINE, (Reported) Magnesium Oxide 400 Mg Tablet, 400 MG PO BID, (Reported) Omeprazole 40 Mg Capsule.dr, 40 MG PO DAILY, (Reported) Potassium Chloride 10 Meq Capsule.er, 10 MEQ PO 1200, (Reported) Rifaximin 550 Mg Tablet, 550 MG PO BID, (Reported) Spironolactone 25 Mg Tablet, 25 MG PO 0800,1200, (Reported) Sulfasalazine 500 Mg Tablet, 3,000 MG PO HS, (Reported) Venlafaxine HCl 25 Mg Tablet, 25 MG PO DAILY, (Reported) Vitamin A 8,000 Unit Capsule, 8,000 UNIT PO DAILY, (Reported) Patient Home Medication List Home Medication List Reviewed: Yes Past Mejzlgt-Yeizcv-Fynutg Hx Reviewed Nursing Assessment Reviewed/Agree w Nursing PMH: Yes Family Medical History Significant Family History: No Pertinent Family Hx Family Medial History: Cardiovascular disease 19 FATHER Diabetes mellitus 19 FATHER FH: hypertension 19 MOTHER Myocardial infarction 19 FATHER 19 MOTHER G8 BROTHER Review of Systems-General Constitutional: No chills, No fever; weakness EENTM: No ear pain, No blurred vision, No double vision Respiratory: No cough, No short of breath Cardiovascular: chest pain (Ribs); No edema Gastrointestinal: No abdominal pain, No constipation, No nausea, No vomiting; other (bright red blood in stool) Genitourinary: No frequency, No hematuria ( ) Musculoskeletal: No back pain, No joint pain Skin: No change in color, No change in hair/nails, No rash Psychiatric/Neurological: Denies Anxiety, Denies Depressed All Other Systems Reviewed Negative Unless Noted: Yes (Negative excepted noted.) Physical Exam-General Problems Physical Exam General Appearance: WD/WN, no apparent distress HEENT: PERRL/EOMI, normal ENT inspection, TMs normal Neck: non-tender, supple Respiratory: chest non-tender, no respiratory distress, no accessory muscle use Cardiovascular: regular rate, rhythm, no JVD Gastrointestinal: soft; No distended, No guarding, No rebound; tenderness (mild LLQ tenderness) Extremities: normal range of motion, non-tender, normal inspection Neurologic/Psychiatric: alert, normal mood/affect, oriented x 3 Skin: normal color, warm/dry Lymphatic: no adenopathy Assessment/Plan Assessment/Plan Assessment/Plan ulcerative colitis flare bright red blood per rectum anemia end stage hepatic disease history DVT on Eliquis IVF and corticosteroids monitor anemia transfuse prbc if needed Hold anticoagulation conservative measures, no immediate colonoscopy Supervisory-Addendum Brief Verification & Attestation Participated in pt care: history, MDM, physical Personally performed: exam, history, MDM, supervision of care Care discussed with: Medical Student Procedures: n/a Results interpretation: Verified all documentation Verification and Attestation of Medical Student E/M Service A medical student performed and documented this service in my presence. I re viewed and verified all information documented by the medical student and made modifications to such information, when appropriate. I personally performed the physical exam and medical decision making. Bernice Zepeda, Jan 24, 2020,21:09 JOAQUÍN RUIZ MED STUDENT Jan 24, 2020 12:53 BERNICE ZEPEDA DO Jan 24, 2020 21:01
--- NOTE | 2020-01-24 13:01 | History & Physical-Hospitalist ---
NICOLASANGELLA MED STUDENT 01/24/20 1301: History of Present Illness HPI/Chief Complaint CC: Hematochezia HPI: Librado is a 54yo admitted directly from clinic due to recent onset of hematochezia. Significant history of UC, ESLD, HTN. About 12 days ago he started having loose bm's with "a lot" of bright red blood. He has had UC since 9yo and has had blood in his stool previously, but not to this extent. Denies pain or N/V. He says that he ran out of Sulfasalazine for 3-4 days prior to the onset of the bloody stool. He has been experiencing increasing weakness and fatigue, and has been sleeping around 20hrs a day since the onset of the bleeding. Date Seen 01/24/20 Time Seen by a Provider: 10:30 Attending Physician Ivonne Casas DO PCP Ivonne Casas DO Referring Physician Date of Admission Jan 23, 2020 at 17:50 Home Medications & Allergies Home Medications Reviewed patient Home Medication Reconciliation performed by pharmacy medication reconciliations dairy technician and/or nursing. Patients Allergies have been reviewed. Allergies Allergies Coded Allergies No Known Drug Allergies ([id number]/23/19) Past Bxvhnkq-Ygvheo-Rwqakt Hx Past Med/Social Hx: Reviewed and Corrections made Patient Social History Marrital Status: Number of Children: 3 Number of living children: 3 Living Status: Lives with and 21yo son in [place] Employed/Student: unemployed (stopped working 2-3yrs ago due to hepatic encephalopathy complications. 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) Alcohol Use: Denies Use Recreational Drug Use: No Smoking Status: Former Smoker (50pack/year history) Former Smoker, Quit: May 01, 2015 Type Used: Cigarettes 2nd Hand Smoke Exposure: No Recent Foreign Travel: No Contact w/other who traveled: No Recent Hopitalizations: No Immunizations Up To Date Tetanus Booster (TDap): Unknown Date of Influenza Vaccine: Jan 17, 2020 Seasonal Allergies Seasonal Allergies: No Past Medical History Fatty tumor removal from arms, R ulnar transposition Respiratory: Sleep Apnea Currently Using CPAP: Yes Cardiac: Hypertension Sexually Transmitted Disease: No HIV/AIDS: No Gastrointestinal: Colitis, Liver Disease/Jaundice (ESLD) Loss of Vision: Bilateral Hearing Impairment: Hard of Hearing Psychosocial: Anxiety Skin/Integumentary: Psoriasis History of Blood Disorders: No Adverse Reaction to Blood Jackson: No (N/A) Family History Reviewed and Corrections made Cardiovascular disease 19 FATHER Diabetes mellitus 19 FATHER FH: hypertension 19 MOTHER Myocardial infarction 19 FATHER 19 MOTHER G8 BROTHER Heart Disease, Diabetes Review of Systems Constitutional: weakness EENTM: hearing loss Respiratory: no symptoms reported Cardiovascular: no symptoms reported Gastrointestinal: see HPI Genitourinary: no symptoms reported Skin: no symptoms reported Psychiatric/Neurological: Weakness Physical Exam Physical Exam Vital Signs Vital Signs - First Documented 01/23/20 18:05 Temp 36.7 Pulse 71 Resp 16 B/P (MAP) 130/60 Pulse Ox 97 O2 Delivery Room Air Capillary Refill : Less Than 3 Seconds Height, Weight, BMI Height: 5'10.00" Weight: 289lbs. 0.0oz. 131.135473ni; 36.78 BMI Method:Stated General Appearance: No Apparent Distress, Chronically ill, Obese Eyes: Bilateral Eye Normal Inspection, Bilateral Eye PERRL, Bilateral Eye EOMI HEENT: PERRL/EOMI, Normal ENT Inspection Neck: Full Range of Motion, Normal Inspection, Non Tender Respiratory: Chest Non Tender, Lungs Clear, Normal Breath Sounds, No Accessory Muscle Use, No Respiratory Distress Cardiovascular: Regular Rate, Rhythm, No Gallop, No JVD, No Murmur, Normal Peripheral Pulses Gastrointestinal: Non Tender, Abnormal Bowel Sounds (hyperactive x4), Distended Back: Normal Inspection Extremity: Normal Capillary Refill, Normal Range of Motion, Non Tender, Swelling (Mild BLE edema) Neurologic/Psychiatric: Alert, Oriented x3, No Motor/Sensory Deficits, Normal Mood/Affect, Motor Weakness Skin: Warm/Dry, Petechia (BLE) Results Results/Procedures Labs Laboratory Tests 01/23/20 18:14 01/24/20 06:15 Patient resulted labs reviewed. Assessment/Plan Admission Diagnosis Ulcerative colitis Admission Status: Inpatient Order (span 2 midnights) Assessment and Plan Assessment: Hematochezia Anemia ESLD Hepatic encephalopathy Impaired mobility Weakness Fatigue Plan: IV fluids Monitor labs Hold Eliquis and start Lovenox for hospital stay PT consult for increasing weakness General surgery consult for GI bleed Diagnosis/Problems Diagnosis/Problems (1) Ascites Status: Chronic (2) Dehydration Status: Acute (3) Gastroenteritis Status: Acute (4) Essential (primary) hypertension Status: Chronic (5) Ulcerative colitis Status: Chronic (6) Hepatic encephalopathy Status: Acute (7) Blood per rectum Clinical Quality Measures DVT/VTE Risk/Contraindication: Risk Factor Score Per Nursin RFS Level Per Nursing on Admit: 2=Moderate Contraindications-Pharm: Other *list below* Other: gi bleed IVONNE CASAS DO 01/25/20 0521: History of Present Illness Source: patient, family Past Tdnfyjg-Rogjui-Maxnrt Hx Past Med/Social Hx: Reviewed Nursing Past Med/Soc Hx, Reviewed and Corrections made Patient Social History Marrital Status: Employed/Student: unemployed (stopped working 2-3yrs ago due to hepatic encephalopathy complications. 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) Past Medical History Cardiac: High Cholesterol, Hypertension Gastrointestinal: Colitis, Liver Disease/Jaundice (ESLD), Gastrointestinal Bleed, Cirrhosis Musculoskeletal: Chronic Back Pain Family History Cardiovascular disease 19 FATHER Diabetes mellitus 19 FATHER FH: hypertension 19 MOTHER Myocardial infarction 19 FATHER 19 MOTHER G8 BROTHER Review of Systems Constitutional: see HPI Physical Exam Physical Exam General Appearance: No Apparent Distress, Chronically ill, Obese Respiratory: Chest Non Tender, Lungs Clear, Normal Breath Sounds, No Accessory Muscle Use, No Respiratory Distress Cardiovascular: Regular Rate, Rhythm, No Edema, No Gallop, No JVD, No Murmur, Normal Peripheral Pulses Assessment/Plan Admission Diagnosis Assessment: GIB UC flare HTN Hepatic encephalopathy Plan: IVF Lactulose Home meds Hold Eliquis for now Admission Status: Inpatient Order (span 2 midnights) Reason for Inpatient Admission: UC flare with GIB Diagnosis/Problems Diagnosis/Problems (1) Hepatic encephalopathy Status: Acute (2) Blood per rectum (3) Ascites Status: Chronic (4) Dehydration Status: Acute (5) Gastroenteritis Status: Acute (6) Essential (primary) hypertension Status: Chronic (7) Ulcerative colitis Status: Chronic Supervisory-Addendum Brief Verification & Attestation Participated in pt care: history, MDM, physical Personally performed: exam, history, MDM, supervision of care Care discussed with: Medical Student Procedures: n/a Results interpretation: Verified all documentation Verification and Attestation of Medical Student E/M Service A medical student performed and documented this service in my presence. I reviewed and verified all information documented by the medical student and made modifications to such information, when appropriate. I personally performed the physical exam and medical decision making. Ivonne Casas, Jan 25, 2020,05:20 ANGELLA VALENZUELA MED STUDENT Jan 24, 2020 13:01 IVONNE CASAS DO Jan 25, 2020 05:21
[2020-01-24 16:42] VITALS: BP 114/60
[2020-01-25] VITALS: BP 124/64
[2020-01-25] MEDS: HYDROCORTISONE 100 MG/2 ML (Solu-CORTEF) VIAL IV SCH ×2 (02:42→10:40)
[2020-01-25 06:42] LABS: BASOPHILS % (AUTO) 0 % (0-10); EOSINOPHILS % (AUTO) 0 % (0-10); HEMATOCRIT 26 % (40-54); HEMOGLOBIN 8.5 g/dL (13.3-17.7); LYMPHOCYTES # (AUTO) 0.6 10^3/uL (1.0-4.0); LYMPHOCYTES % (AUTO) 6 % (12-44); MEAN CORPUSCULAR HEMOGLOBIN 28 pg (25-34); MEAN CORPUSCULAR HGB CONC 33 g/dL (32-36); MEAN CORPUSCULAR VOLUME 87 fL (80-99); MEAN PLATELET VOLUME 10.3 fL (9.0-12.2); MONOCYTES # (AUTO) 0.5 10^3/uL (0.0-1.0); MONOCYTES % (AUTO) 5 % (0-12); NEUTROPHILS # (AUTO) 8.7 10^3/uL (1.8-7.8); NEUTROPHILS % (AUTO) 85 % (42-75); PLATELET COUNT 151 10^3/uL (130-400); WHITE BLOOD COUNT 10.3 10^3/uL (4.3-11.0)
[2020-01-25 06:54] LABS: ALBUMIN 2.7 GM/DL (3.2-4.5)
[2020-01-25 06:55] LABS: CHLORIDE 109 MMOL/L (98-107); SODIUM 138 MMOL/L (135-145)
[2020-01-25 06:56] LABS: CALCIUM 8.1 MG/DL (8.5-10.1)
[2020-01-25 06:57] LABS: GLUCOSE 131 MG/DL (70-105); TOTAL PROTEIN 5.3 GM/DL (6.4-8.2)
[2020-01-25 06:58] LABS: CARBON DIOXIDE 22 MMOL/L (21-32)
[2020-01-25 06:59] LABS: BILIRUBIN,TOTAL 0.7 MG/DL (0.1-1.0)
[2020-01-25 07:00] LABS: ALKALINE PHOSPHATASE 189 U/L (40-136)
[2020-01-25 07:01] LABS: CREATININE SERUM 0.75 MG/DL (0.60-1.30); GFR ESTIMATED > 60
[2020-01-25 07:02] LABS: BUN/CREATININE RATIO 13
[2020-01-25 07:03] LABS: ALANINE AMINOTRANSFERASE 21 U/L (0-55)
[2020-01-25 07:59] VITALS: BP 121/68
[2020-01-25] MEDS: BISOPROLOL 5 MG TAB (ZEBETA) PO SCH (08:20)
[2020-01-25] MEDS: LACTULOSE SYRUP 10GM/15ML (ENULOSE) 30ML UDC PO SCH (08:20)
[2020-01-25] MEDS: SPIRONOLACTONE 25 MG (ALDACTONE) TAB PO SCH (08:21)
[2020-01-25] MEDS: MAGNESIUM OXIDE (MAG-OX)400 MG TAB PO SCH (08:21)
[2020-01-25] MEDS: amLODIPine 5 MG (NORVASC) TAB PO SCH (08:21)
[2020-01-25] MEDS: RIFAXIMIN 550 MG TABLET (XIFAXAN) PO SCH (08:21)
[2020-01-25] MEDS: VENLAFAXINE 50 MG (EFFEXOR) TABLET PO SCH (08:21)
[2020-01-25] MEDS: KCL 10 MEQ TAB (MICRO K) PO SCH (08:21)
[2020-01-25] MEDS: sulfaSALAzine 500 MG (AZULFIDINE) TAB PO SCH (08:21)
[2020-01-25] MEDS: BETAMETHASONE DIPRO (AUGMENTED) 0.05% CREAM 15 GM TOP SCH (08:22)
[2020-01-25] MEDS: PANTOPRAZOLE 40 MG (PROTONIX) TAB PO SCH (08:24)
[2020-01-25] MEDS: ENOXAPARIN 40 MG/0.4 ML (LOVENOX) SYR SC SCH (10:40)
--- NOTE | 2020-01-25 11:47 | Progress Note - Surgery ---
Subjective Time Seen by a Provider: 10:28 Subjective/Events-last exam Pt seen and examined, denies any abdominal pain today. Pt states he feels fine and has not seen any rectal bleeding. Review of Systems General: No Chills, No Fatigue Pulmonary: No Dyspnea, No Cough Cardiovascular: No: Chest Pain, Palpitations Gastrointestinal: No: Nausea, Vomiting, Abdominal Pain Focused Exam Lactate Level 01/23/20 18:14: Lactic Acid Level 1.36 Objective Exam Vital Signs Date Time Temp Pulse Resp B/P (MAP) Pulse Ox O2 Delivery O2 Flow Rate FiO2 01/25/20 08:00 96 Room Air 01/25/20 07:59 36.8 69 20 121/68 (85) 96 Room Air 01/25/20 00:00 36.4 71 16 124/64 (84) 97 Room Air 01/24/20 20:00 Room Air 01/24/20 16:42 37.0 71 18 114/60 (78) 96 Room Air 01/24/20 12:00 36.7 76 18 124/65 (84) 95 Room Air I & O 01/25/20 07:00 Intake Total 2810 ml Output Total 650 ml Balance 2160 ml Capillary Refill : Less Than 3 Seconds General Appearance: No Apparent Distress, Obese HEENT: PERRL/EOMI Respiratory: Chest Non Tender, Lungs Clear, Normal Breath Sounds, No Accessory Muscle Use, No Respiratory Distress Cardiovascular: Regular Rate, Rhythm, No Murmur Gastrointestinal: soft; No distended, No guarding, No rebound; tenderness (mild LLQ tenderness) Extremity: No Calf Tenderness, Swelling (Mild BLE edema) Neurologic/Psychiatric: Alert, Oriented x3, Motor Weakness Skin: Warm/Dry, Petechia (BLE) Results Lab Laboratory Tests 01/25/20 06:22: White Blood Count 10.3, Red Blood Count 3.00L, Hemoglobin 8.5L, Hematocrit 26L, Mean Corpuscular Volume 87, Mean Corpuscular Hemoglobin 28, Mean Corpuscular Hemoglobin Concent 33, Red Cell Distribution Width 15.2H, Platelet Count 151, Mean Platelet Volume 10.3, Immature Granulocyte % (Auto) 4, Neutrophils (%) (Auto) 85H, Lymphocytes (%) (Auto) 6L, Monocytes (%) (Auto) 5, Eosinophils (%) (Auto) 0, Basophils (%) (Auto) 0, Neutrophils # (Auto) 8.7H, Lymphocytes # (Auto) 0.6L, Monocytes # (Auto) 0.5, Eosinophils # (Auto) 0.0, Basophils # (Auto) 0.0, Immature Granulocyte # (Auto) 0.4H, Sodium Level 138, Potassium Level 4.0, Chloride Level 109H, Carbon Dioxide Level 22, Anion Gap 7, Blood Urea Nitrogen 10, Creatinine 0.75, Estimat Glomerular Filtration Rate > 60, BUN/Cre atinine Ratio 13, Glucose Level 131H, Calcium Level 8.1L, Corrected Calcium 9.1, Total Bilirubin 0.7, Aspartate Amino Transf (AST/SGOT) 40H, Alanine Aminotransferase (ALT/SGPT) 21, Alkaline Phosphatase 189H, Total Protein 5.3L, Albumin 2.7L Assessment/Plan Assessment/Plan Assessment/Plan Ulcerative Colitis flare - improved now on steroids Rectal bleed - none today Anemia - stable End stage hepatic disease History DVT on Eliquis Continue IVF and corticosteroids, Hg 8.5 today, Hold anticoagulation and conservative measures, pt probably ok to go home today. Pt had colonoscopy [address] Zepeda. Clinical Quality Measures DVT/VTE Risk/Contraindication: Risk Factor Score Per Nursin RFS Level Per Nursing on Admit: 2=Moderate Contraindications-Pharm: Other *list below* Other: gi bleed MIGUEL CHAPPELL DO Jan 25, 2020 11:47
[2020-01-25] MEDS ORDERED: IRON SUCROSE 200 MG/10 ML (VENOFER) VIAL IV NR (12:30)
[2020-01-25] MEDS ORDERED: PRED10TA22 PO (13:28)
--- NOTE | 2020-01-25 13:29 | Discharge Summary ---
Discharge Summary Hospital Course Was the Problem List Reviewed?: Yes Problems/Dx: (1) Hepatic encephalopathy Status: Acute (2) Blood per rectum (3) Ascites Status: Chronic (4) Dehydration Status: Acute (5) Gastroenteritis Status: Acute (6) Essential (primary) hypertension Status: Chronic (7) Ulcerative colitis Status: Chronic Hospital Course Date of Admission: Jan 23, 2020 at 17:50 Admission Diagnosis : Family Physician/Provider: Ivonne Casas DO Date of Discharge: 01/25/20 Discharge Diagnosis: UC flare, hepatic encephalopathy due to blood in intestine from flare of UC, cirrhosis Hospital Course: Brief course after admitted from clinic due to blood in stool and increased confusion and falls. Patient was given IVF and IV steroids and improved rapidly. No blood in stool noted and patient was deemed stable for DC. Labs and Pending Lab Test: Laboratory Tests 01/25/20 06:22: White Blood Count 10.3, Red Blood Count 3.00L, Hemoglobin 8.5L, Hematocrit 26L, Mean Corpuscular Volume 87, Mean Corpuscular Hemoglobin 28, Mean Corpuscular Hemoglobin Concent 33, Red Cell Distribution Width 15.2H, Platelet Count 151, Mean Platelet Volume 10.3, Immature Granulocyte % (Auto) 4, Neutrophils (%) (Auto) 85H, Lymphocytes (%) (Auto) 6L, Monocytes (%) (Auto) 5, Eosinophils (%) (Auto) 0, Basophils (%) (Auto) 0, Neutrophils # (Auto) 8.7H, Lymphocytes # (Auto) 0.6L, Monocytes # (Auto) 0.5, Eosinophils # (Auto) 0.0, Basophils # (Auto) 0.0, Immature Granulocyte # (Auto) 0.4H, Sodium Level 138, Potassium Level 4.0, Chloride Level 109H, Carbon Dioxide Level 22, Anion Gap 7, Blood Urea Nitrogen 10, Creatinine 0.75, Estimat Glomerular Filtration Rate > 60, BUN/Creatinine Ratio 13, Glucose Level 131H, Calcium Level 8.1L, Corrected Calcium 9.1, Total Bilirubin 0.7, Aspartate Amino Transf (AST/SGOT) 40H, Alanine Aminotransferase (ALT/SGPT) 21, Alkaline Phosphatase 189H, Total Protein 5.3L, Albumin 2.7L Home Meds Active Reported Cyclobenzaprine HCl 5 Mg Tablet 5 Mg PO Q8H PRN Eliquis (Apixaban) 5 Mg Tablet 5 Mg PO BID Vitamin A 8,000 Unit Capsule 8,000 Unit PO DAILY Venlafaxine HCl 25 Mg Tablet 25 Mg PO DAILY Lactulose 10 Gm/15 Ml Solution 15 Ml PO BID PRN Citalopram HBr (Citalopram Hydrobromide) 40 Mg Tablet 40 Mg PO DAILY Potassium Chloride 10 Meq Capsule.er 10 Meq PO 1200 Sulfasalazine 500 Mg Tablet 3,000 Mg PO HS Clobetasol Propionate 15 Gm Cream..g. 1 Applic TOP BID PRN Bisoprolol Fumarate 10 Mg Tablet 10 Mg PO DAILY Omeprazole 40 Mg Capsule.dr 40 Mg PO DAILY Xifaxan (Rifaximin) 550 Mg Tablet 550 Mg PO BID Amlodipine Besylate 5 Mg Tablet 5 Mg PO DAILY Magnesium (Magnesium Oxide) 400 Mg Tablet 400 Mg PO BID Spironolactone 25 Mg Tablet 25 Mg PO 0800,1200 Assessment/Pt Instructions Dr Casas in 1 week Discharge Planning: <30 minutes discharge planning Discharge Physical Examination Vital Signs Vital Signs Date Time Temp Pulse Resp B/P (MAP) Pulse Ox O2 Delivery O2 Flow Rate FiO2 01/25/20 08:00 96 Room Air 01/25/20 07:59 36.8 69 20 121/68 (85) General Appearance: No Apparent Distress, WD/WN, Chronically ill Allergies: Coded Allergies: No Known Drug Allergies (Verified , 02/20/19) Discharge Summary Date of Admission Jan 23, 2020 at 17:50 Date of Discharge Discharge Date: Jan 25, 2020 Admission Diagnosis Assessment: GIB UC flare HTN Hepatic encephalopathy Plan: IVF Lactulose Home meds Hold Eliquis for now Discharge Diagnosis (1) Hepatic encephalopathy Status: Acute (2) Blood per rectum (3) Ascites Status: Chronic (4) Dehydration Status: Acute (5) Gastroenteritis Status: Acute (6) Essential (primary) hypertension Status: Chronic (7) Ulcerative colitis Status: Chronic Clinical Quality Measures DVT/VTE Risk/Contraindication: Risk Factor Score Per Nursin RFS Level Per Nursing on Admit: 2=Moderate Contraindications-Pharm: Other *list below* Other: gi bleed IVONNE CASAS DO Jan 25, 2020 13:29
== END 2020-01-25 13:50 | disposition home or self-care (01) | DRG 386 ==
LOC: 4TH 17:50
PROVIDERS: ADMIT Internal Medicine; ATTEND Internal Medicine
DX: K51.911 Ulcerative colitis, unspecified with rectal bleeding (principal); R18.8 Other ascites; K72.90 Hepatic failure, unspecified without coma; K74.60 Unspecified cirrhosis of liver; K52.9 Noninfective gastroenteritis and colitis, unspecified; E86.0 Dehydration; E78.00 Pure hypercholesterolemia, unspecified; I10 Essential (primary) hypertension; G47.30 Sleep apnea, unspecified; F41.9 Anxiety disorder, unspecified; D64.9 Anemia, unspecified; L40.9 Psoriasis, unspecified; Z79.01 Long term (current) use of anticoagulants; Z86.718 Personal history of other venous thrombosis and embolism; Z87.891 Personal history of nicotine dependence
CPT/HCPCS: 36415; 80053; 82140; 82728; 83540; 83605; 84145; 85025; 85610; 85652; 85730; 86141

== ENCOUNTER 2020-03-25 09:57 | Outpatient (RCR) | payer MEDICARE ==
[2020-03-16 10:50] VITALS: BP 130/74
[2020-03-18] MEDS: IRON SUCROSE 200 MG/10 ML (VENOFER) VIAL IV SCH (11:05)
[2020-03-18 11:25] VITALS: BP 119/69
[2020-03-20 10:30] VITALS: BP 136/71
[2020-03-20] MEDS: IRON SUCROSE 200 MG/10 ML (VENOFER) VIAL IV SCH (10:43)
[2020-03-23] MEDS: IRON SUCROSE 200 MG/10 ML (VENOFER) VIAL IV SCH (10:23)
[2020-03-23 10:55] VITALS: BP 132/74
[~2020-03-25] VITALS: Ht 180 cm; Wt 125000.0 kg
[~2020-03-25 09:57] MED LIST changes: +AMLO-250 PO; -AMLO5TAB9 PO; +CITA40TA11 PO; +CLOB15CR2 TOP; +IRON SUCROSE 200 MG/10 ML (VENOFER) VIAL IV ONE; +POTA10CA43 PO; +PRED10TA22 PO; +VENL25TA2 PO
[2020-03-25] MEDS: IRON SUCROSE 200 MG/10 ML (VENOFER) VIAL IV SCH (10:06)
[2020-03-25 10:08] VITALS: BP 138/86
== END 2020-03-25 10:35 | disposition home or self-care (01) ==
LOC: SDC 09:57
PROVIDERS: ATTEND Internal Medicine
DX: E61.1 Iron deficiency (principal)
CPT/HCPCS: 96365

== ENCOUNTER → 2020-05-05 | Outpatient (CLI) | payer MEDICARE ==
[~2020-05-05] MED LIST changes: +CATHETER FLUSH 10 ML SYR IV PRN; +HOLD METFORMIN - RECEIVED CONTRAST 20 ML VIAL IV SCH; +IOHEXOL 350 MG/ML 100 ML (OMNIPAQUE 350) VIAL IV ONE; -IRON SUCROSE 200 MG/10 ML (VENOFER) VIAL IV ONE; +NS 100 ML (IVPB) BAG IV ONE
[2020-05-05 08:02] LABS: BUN/CREATININE RATIO 10; CREATININE SERUM 0.87 MG/DL (0.60-1.30); GFR ESTIMATED > 60
--- NOTE | 2020-05-05 09:00 | Diagnostic Imaging Report ---
PROCEDURE: CT Angio Abdomen/Pelvis with. TECHNIQUE: Multiple contiguous axial images were obtained through the abdomen and pelvis after the uneventful bolus administration of intravenous contrast. Sagittal and coronal MIP reconstructions with then performed. All CT scans use one or more of the following dose optimizing techniques: automated exposure control, MA and/or KvP adjustment based on patient size and exam type or iterative reconstruction. INDICATION: Abdominal aortic dissection. No prior studies are available for comparison. Lung bases demonstrate minimal scarring or atelectasis in the right middle lobe and lingula. Liver does demonstrate somewhat nodular contour, raising question of cirrhosis. No discrete liver mass is identified. Gallbladder contains small stones. There is no biliary ductal dilatation. The pancreas is unremarkable. Spleen is enlarged approximately 16 cm. Multiple varices in the upper abdomen are noted. There does appear to be a splenorenal shunt. No adrenal mass is identified. Kidneys contain nonobstructing calculi, largest on the right measuring 4 mm. No hydronephrosis is seen. The aorta is normal in caliber. There is atherosclerotic plaque. No dissection is seen. No central retroperitoneal or mesenteric lymphadenopathy is identified. Small and large bowel loops are normal caliber. There is no free fluid or fluid collection. Bladder and prostate are unremarkable. There is no pelvic lymphadenopathy. Celiac and SMA are patent. RUY is patent. There are single renal arteries bilaterally which appear patent. Bony structures demonstrate sclerosis of the sacroiliac joints bilaterally, suggestive of sacroiliitis. IMPRESSION: 1. Findings consistent with cirrhosis and portal hypertension with splenomegaly and upper abdominal varices. There is no ascites. 2. Cholelithiasis. 3. No evidence of abdominal aortic aneurysm or dissection. 4. Findings suggestive of sacroiliitis. Dictated by: Dictated on workstation # [id number]
== END ==
LOC: RAD 08:15
PROVIDERS: ATTEND Internal Medicine
DX: I71.02 Dissection of abdominal aorta (principal); I86.8 Varicose veins of other specified sites; I10 Essential (primary) hypertension; D73.2 Chronic congestive splenomegaly; E78.1 Pure hyperglyceridemia; E78.00 Pure hypercholesterolemia, unspecified; K76.6 Portal hypertension; K80.20 Calculus of gallbladder without cholecystitis without obstruction
CPT/HCPCS: 36415; 74174; 82565; 84520

== ENCOUNTER 2020-06-22 03:27 | Observation (INO) | payer MEDICARE ==
[~2020-06-22] VITALS: Ht 178 cm; Wt 110.3 kg
[~2020-06-22 03:27] MED LIST changes: -CATHETER FLUSH 10 ML SYR IV PRN; -HOLD METFORMIN - RECEIVED CONTRAST 20 ML VIAL IV SCH; -IOHEXOL 350 MG/ML 100 ML (OMNIPAQUE 350) VIAL IV ONE; -LACT10SO PO; +LACT10SO3 PO; -NS 100 ML (IVPB) BAG IV ONE
--- NOTE | 2020-06-22 03:36 | ED Abdominal Pain ---
General Stated Complaint: DX : LIVER DISEASE,HIGH PNEUM. LEVELS,STOMACH ACHE Source of Information: Patient Exam Limitations: No Limitations History of Present Illness Date Seen by Provider: Jun 22, 2020 Time Seen by Provider: 03:35 Initial Comments Patient is a 55-year-old male who presents to the emergency room today complaining of a flare of his ulcerative colitis over the last 3 weeks. Patient states he has been having bloody bowel movements up to 3-4 times daily. Patient is also concerned that his liver disease might be worsening a little bit and his ammonia level might be climbing. Patient has been a little bit more confused of late. He has not increased his home daily doses of lactulose. Patient states that he has been compliant with his sulfasalazine. Patient has not had any fever. He complains of some abdominal discomfort. He points to the lower abdomen and right side of his abdomen as the source of his pain. Patient last saw his primary care physician about a month ago. No changes were made to his medications at that time. Patient states that he was unable to sleep secondary to abdominal discomfort and some back spasms this evening. Patient states that his back spasms are chronic in nature. Patient has not taken any pain medications for his abdominal pain. No urinary complaints no bowel complaints other than the above-stated. No sick contacts at home. All other review of systems reviewed and negative except as stated. Timing/Duration: 24 Hours Severity/Quality: Moderate, Cramping Location: Generalized Abdomen Radiation: No Radiation Activities at Onset: None Associated Symptoms: Denies Symptoms Allergies and Home Medications Allergies Coded Allergies: No Known Drug Allergies (Verified , 02/20/19) Home Medications Amlodipine Besylate 5 Mg Tablet, 5 MG PO DAILY, (Reported) Apixaban 5 Mg Tablet, 5 MG PO BID, (Reported) Bisoprolol Fumarate 10 Mg Tablet, 10 MG PO DAILY, (Reported) Citalopram Hydrobromide 40 Mg Tablet, 40 MG PO DAILY, (Reported) Clobetasol Propionate 15 Gm Cream..g., 1 APPLIC TOP BID PRN for RASH, (Reported) Cyclobenzaprine HCl 5 Mg Tablet, 5 MG PO Q8H PRN for MUSCLE SPASMS, (Reported) Lactulose 10 Gm/15 Ml Solution, 15 ML PO BID PRN for CONSTIPATION-3RD LINE, (Reported) Magnesium Oxide 400 Mg Tablet, 400 MG PO BID, (Reported) Omeprazole 40 Mg Capsule.dr 40 MG PO DAILY, (Reported) Potassium Chloride 10 Meq Capsule.er, 10 MEQ PO 1200, (Reported) Prednisone 10 Mg Tab.ds.pk, 10 MG PO DAILY 4 pills daily for 4 days then 2 pills daily for 4 days then 1 pill daily for 4 days Prescribed by: DIANA BARRIGA on 01/25/20 1328 Rifaximin 550 Mg Tablet, 550 MG PO BID, (Reported) Spironolactone 25 Mg Tablet, 25 MG PO 0800,1200, (Reported) Sulfasalazine 500 Mg Tablet, 3,000 MG PO HS, (Reported) Venlafaxine HCl 25 Mg Tablet, 25 MG PO DAILY, (Reported) Vitamin A 8,000 Unit Capsule, 8,000 UNIT PO DAILY, (Reported) Patient Home Medication List Home Medication List Reviewed: Yes Review of Systems Review of Systems Constitutional: see HPI EENTM: No Symptoms Reported Respiratory: No Symptoms Reported Cardiovascular: No Symptoms Reported Gastrointestinal: Abdominal Pain, Blood Streaked Stools, Diarrhea, Poor Appetite Genitourinary: No Symptoms Reported Musculoskeletal: no symptoms reported Skin: no symptoms reported Psychiatric/Neurological: Other (Mild confusion) All Other Systems Reviewed Negative Unless Noted: Yes Past Xhrahyd-Pihdni-Ecpzhq Hx Patient Social History Type Used: Cigarettes Former Smoker, Quit: May 01, 2015 2nd Hand Smoke Exposure: No Recent Hopitalizations: No Immunizations Up To Date Tetanus Booster (TDap): Unknown Date of Influenza Vaccine: Jan 17, 2020 Seasonal Allergies Seasonal Allergies: No Past Medical History Surgeries: Yes Respiratory: No Sleep Apnea Currently Using CPAP: Yes Cardiac: Yes High Cholesterol, Hypertension Neurological: No Sexually Transmitted Disease: No HIV/AIDS: No Genitourinary: No Gastrointestinal: Yes Colitis, Liver Disease/Jaundice, Gastrointestinal Bleed, Cirrhosis Musculoskeletal: No Chronic Back Pain Endocrine: No HEENT: Yes (GLASSES) Loss of Vision: Bilateral Hearing Impairment: Hard of Hearing Cancer: No Psychosocial: No Anxiety Integumentary: Yes Psoriasis Blood Disorders: No Adverse Reaction/Blood Tranf: No (N/A) Family Medical History Cardiovascular disease 19 FATHER Diabetes mellitus 19 FATHER FH: hypertension 19 MOTHER Myocardial infarction 19 FATHER 19 MOTHER G8 BROTHER No Pertinent Family Hx Physical Exam Vital Signs Vital Signs - First Documented 06/22/20 03:37 Temp 36.8 Pulse 71 Resp 20 B/P (MAP) 140/73 (95) O2 Delivery Room Air Capillary Refill : Height/Weight/BMI Height: 5'10.00" Weight: 289lbs. 0.0oz. [id number]; 36.78 BMI Method:Stated General Appearance: WD/WN HEENT: scleral icterus (R), scleral icterus (L) Respiratory: lungs clear, normal breath sounds, no respiratory distress Cardiovascular: regular rate, rhythm, systolic murmur (Benson best at the right upper sternal border) Gastrointestinal: soft; No abnormal bowel sounds, No distended, No guarding, No rebound; tenderness (Mild diffuse tenderness), hepatomegaly (I am unable to palpate the liver margin secondary to the patient's obesity) Extremities: non-tender, normal inspection, pedal edema (Trace lower extremity edema bilaterally) Neurologic/Psychiatric: alert, normal mood/affect, oriented x 3, other (No asterixis is noted) Skin: normal color, warm/dry Progress/Results/Core Measures Results/Orders Lab Results Laboratory Tests Test 06/22/20 03:45 Range/Units White Blood Count 4.4 4.3-11.0 10^3/uL Red Blood Count 3.83 L 4.30-5.52 10^6/uL Hemoglobin 10.3 L 13.3-17.7 g/dL Hematocrit 32 L 40-54 % Mean Corpuscular Volume 84 80-99 fL Mean Corpuscular Hemoglobin 27 25-34 pg Mean Corpuscular Hemoglobin Concent 32 32-36 g/dL Red Cell Distribution Width 15.1 H 10.0-14.5 % Platelet Count 176 130-400 10^3/uL Mean Platelet Volume 9.2 9.0-12.2 fL Immature Granulocyte % (Auto) 1 % Neutrophils (%) (Auto) 72 42-75 % Lymphocytes (%) (Auto) 14 12-44 % Monocytes (%) (Auto) 11 0-12 % Eosinophils (%) (Auto) 2 0-10 % Basophils (%) (Auto) 1 0-10 % Neutrophils # (Auto) 3.2 1.8-7.8 10^3/uL Lymphocytes # (Auto) 0.6 L 1.0-4.0 10^3/uL Monocytes # (Auto) 0.5 0.0-1.0 10^3/uL Eosinophils # (Auto) 0.1 0.0-0.3 10^3/uL Basophils # (Auto) 0.0 0.0-0.1 10^3/uL Immature Granulocyte # (Auto) 0.0 0.0-0.1 10^3/uL Prothrombin Time 17.6 H 12.2-14.7 SEC INR Comment 1.4 0.8-1.4 Activated Partial Thromboplast Time 52 H 24-35 SEC Sodium Level 136 135-145 MMOL/L Potassium Level 4.2 3.6-5.0 MMOL/L Chloride Level 105 98-107 MMOL/L Carbon Dioxide Level 21 21-32 MMOL/L Anion Gap 10 5-14 MMOL/L Blood Urea Nitrogen 11 7-18 MG/DL Creatinine 0.90 0.60-1.30 MG/DL Estimat Glomerular Filtration Rate > 60 BUN/Creatinine Ratio 12 Glucose Level 93 70-105 MG/DL Calcium Level 8.3 L 8.5-10.1 MG/DL Corrected Calcium 9.0 8.5-10.1 MG/DL Total Bilirubin 1.5 H 0.1-1.0 MG/DL Aspartate Amino Transf (AST/SGOT) 49 H 5-34 U/L Alanine Aminotransferase (ALT/SGPT) 21 0-55 U/L Alkaline Phosphatase 321 H 40-136 U/L Ammonia 127 H 11-32 UMOL/L Total Protein 6.5 6.4-8.2 GM/DL Albumin 3.1 L 3.2-4.5 GM/DL My Orders Orders - SHELBY GOTTI MD Ed Iv/Invasive Line Start (06/22/20 03:45) Cbc With Automated Diff (06/22/20 03:45) Comprehensive Metabolic Panel (06/22/20 03:45) Protime With Inr (06/22/20 03:45) Partial Thromboplastin Time (06/22/20 03:45) Ammonia (06/22/20 03:45) Hydrocodone/Apap 7.5/325 Tab (Lortab 7. (06/22/20 04:15) Lactulose Oral Solution (Enulose Oral So (06/22/20 05:00) Lactated Ringers (Lr 1000 Ml Iv Solution (06/22/20 05:00) Hydrocortisone Injection (Solu-Cortef In (06/22/20 05:00) Medications Given in ED Current Medications Medications Dose Ordered Sig/Vesta Route Start Time Stop Time Status Last Admin Dose Admin Acetaminophen/ Hydrocodone Bitart 1 ea ONCE ONCE PO 06/22/20 04:15 06/22/20 04:16 DC 06/22/20 04:19 1 EA Hydrocortisone Sodium Succinate 50 mg ONCE ONCE IV 06/22/20 05:00 06/22/20 05:01 DC 06/22/20 05:06 50 MG Vital Signs/I&O 06/22/20 03:37 Temp 36.8 Pulse 71 Resp 20 B/P (MAP) 140/73 (95) O2 Delivery Room Air Progress Progress Note : Time: 05:00 Progress Note 55-year-old male presents to the emergency department today with a chief complaint of increasing confusion, abdominal pain and an ulcerative colitis flare for the last 3 weeks. Evaluation today includes a physical exam, CBC, CMP, ammonia level. Coags also have been obtained. Labs have been reviewed. The patient has a normal white count, normal for him hemoglobin and hematocrit. Significantly increased ammonia level and normal serum chemistries and about his normal liver functions. Patient will be admitted to the hospitalist service. Consultation to Dr. Cedillo for admission. IV fluids have been started. Patient is started also on some Solu-Cortef and some lactulose. Departure Communication (Admissions) Time/Spoke to Admitting Phy: 05:[address] Cedillo who accepts the patient for observation admission Impression Primary Impression: Hepatic encephalopathy Additional Impressions: Abdominal pain Qualified Codes: R10.84 - Generalized abdominal pain Ulcerative colitis Qualified Codes: K51.919 - Ulcerative colitis, unspecified with unspecified complications Disposition: ADMITTED INPATIENT Condition: Stable Admissions Decision to Admit Reason: Admit from ER (General) Decision to Admit/Date: Jun 22, 2020 Time/Decision to Admit Time: 05:30 Departure-Patient Inst. Referrals: DIANA BARRIGA DO (PCP/Family) Primary Care Physician SHELBY GOTTI MD Jun 22, 2020 03:36
[2020-06-22 03:52] LABS: BASOPHILS % (AUTO) 1 % (0-10); EOSINOPHILS # (AUTO) 0.1 10^3/uL (0.0-0.3); EOSINOPHILS % (AUTO) 2 % (0-10); HEMATOCRIT 32 % (40-54); HEMOGLOBIN 10.3 g/dL (13.3-17.7); LYMPHOCYTES # (AUTO) 0.6 10^3/uL (1.0-4.0); LYMPHOCYTES % (AUTO) 14 % (12-44); MEAN CORPUSCULAR HEMOGLOBIN 27 pg (25-34); MEAN CORPUSCULAR HGB CONC 32 g/dL (32-36); MEAN CORPUSCULAR VOLUME 84 fL (80-99); MEAN PLATELET VOLUME 9.2 fL (9.0-12.2); MONOCYTES # (AUTO) 0.5 10^3/uL (0.0-1.0); MONOCYTES % (AUTO) 11 % (0-12); NEUTROPHILS # (AUTO) 3.2 10^3/uL (1.8-7.8); NEUTROPHILS % (AUTO) 72 % (42-75); PLATELET COUNT 176 10^3/uL (130-400); WHITE BLOOD COUNT 4.4 10^3/uL (4.3-11.0)
[2020-06-22 04:09] LABS: ALBUMIN 3.1 GM/DL (3.2-4.5); CHLORIDE 105 MMOL/L (98-107); POTASSIUM 4.2 MMOL/L (3.6-5.0); SODIUM 136 MMOL/L (135-145)
[2020-06-22 04:10] LABS: AMMONIA 127 UMOL/L (11-32); CALCIUM 8.3 MG/DL (8.5-10.1); INR 1.4 (0.8-1.4); PROTHROMBIN TIME PATIENT 17.6 SEC (12.2-14.7)
[2020-06-22 04:11] LABS: GLUCOSE 93 MG/DL (70-105); TOTAL PROTEIN 6.5 GM/DL (6.4-8.2)
[2020-06-22 04:13] LABS: BILIRUBIN,TOTAL 1.5 MG/DL (0.1-1.0); CARBON DIOXIDE 21 MMOL/L (21-32)
[2020-06-22 04:15] LABS: ALKALINE PHOSPHATASE 321 U/L (40-136); GFR ESTIMATED > 60
[2020-06-22] MEDS ORDERED: HYDROcodone/APAP 7.5 MG/325 MG (LORTAB, LORCET PLUS) TABLET PO ONE (04:15)
[2020-06-22 04:16] LABS: BUN/CREATININE RATIO 12
[2020-06-22 04:18] LABS: ALANINE AMINOTRANSFERASE 21 U/L (0-55)
[2020-06-22] MEDS ORDERED: LACTULOSE SYRUP 10GM/15ML (ENULOSE) 30ML UDC PO ONE (05:00)
[2020-06-22] MEDS ORDERED: HYDROCORTISONE 100 MG/2 ML (Solu-CORTEF) VIAL IV ONE (05:00)
[2020-06-22] MEDS ORDERED: LACTATED RINGERS 1,000 ML IV SCH (05:00)
[2020-06-22 08:06] VITALS: BP 106/63
[2020-06-22] MEDS: LACTULOSE SYRUP 10GM/15ML (ENULOSE) 30ML UDC PO SCH ×4 (08:57→20:16)
[2020-06-22] MEDS: LACTATED RINGERS 1,000 ML IV SCH ×2 (08:57→15:33)
[2020-06-22] MEDS ORDERED: FOLI1TAB33 PO (09:11)
[2020-06-22] MEDS ORDERED: LACT10SO64 PO (09:11)
[2020-06-22] MEDS ORDERED: METH2.5T PO (09:11)
[2020-06-22] MEDS ORDERED: ERGO50006 PO (09:11)
[2020-06-22] MEDS ORDERED: VITAMIN D2 1.25 MG (50,000 UNITS) CAP PO SCH (10:30)
--- NOTE | 2020-06-22 11:03 | History & Physical-Hospitalist ---
ROGER NICHOLS,[facility] 06/22/20 1103: History of Present Illness HPI/Chief Complaint 55 yo man with PMH of UC and cirrhosis with hepatic encephalopathy here for bloody BMs 3-4x daily & increased confusion of late. Endorses back and abdominal pain that limits his sleep. Source: patient, family Exam Limitations: no limitations Date Seen 06/22/20 Time Seen by a Provider: 10:00 Attending Physician Lisa Cedillo MD PCP Ivonne Barriga DO Referring Physician Date of Admission Jun 22, 2020 at 05:00 Home Medications & Allergies Home Medications Home Meds Active Reported Constulose (Lactulose) 10 Gm/15 Ml Solution 15 Ml PO BID PRN Methotrexate (Methotrexate Sodium) 2.5 Mg Tablet 20 Mg PO SUN TAKES 8 (2.5MG) TABS Folic Acid 1 Mg Tablet 1 Mg PO 1200 Vitamin D2 (Ergocalciferol (Vitamin D2)) 1,250 Mcg Capsule 1,250 Mcg PO SAT Eliquis (Apixaban) 5 Mg Tablet 5 Mg PO BID Vitamin A 8,000 Unit Capsule 8,000 Unit PO 1200 Venlafaxine HCl 25 Mg Tablet 25 Mg PO DAILY Citalopram HBr (Citalopram Hydrobromide) 40 Mg Tablet 40 Mg PO DAILY Potassium Chloride 10 Meq Capsule.er 10 Meq PO 1200 Sulfasalazine 500 Mg Tablet 3,000 Mg PO HS TAKES 6 (500MG) TABS LAST FILLED 03-18-2020 #126/21 DAY SUPPLY Bisoprolol Fumarate 10 Mg Tablet 10 Mg PO DAILY Omeprazole 40 Mg Capsule.dr 40 Mg PO DAILY Xifaxan (Rifaximin) 550 Mg Tablet 550 Mg PO BID LAST FILLED 02-28-2020 #180/90 DAY SUPPLY Amlodipine Besylate 5 Mg Tablet 5 Mg PO DAILY Magnesium (Magnesium Oxide) 400 Mg Tablet 400 Mg PO BID Spironolactone 25 Mg Tablet 50 Mg PO DAILY TAKES 2 (25MG) TABS Reviewed patient Home Medication Reconciliation performed by pharmacy medication reconciliations biofuels processing technician and/or nursing. Patients Allergies have been reviewed. Allergies Allergies Coded Allergies No Known Drug Allergies (Ismdbvze14/23/19) Past Wboestw-Gqjhai-Wuwxgh Hx Patient Social History Marrital Status: Alcohol Use: Denies Use Recreational Drug Use: No Smoking Status: Former Smoker Former Smoker, Quit: May 01, 2015 Type Used: Cigarettes 2nd Hand Smoke Exposure: No Recent Foreign Travel: No Contact w/other who traveled: No Recent Hopitalizations: No Recent Infectious Disease Expo: No Immunizations Up To Date Tetanus Booster (TDap): Unknown Date of Influenza Vaccine: Mar 27, 2020 Seasonal Allergies Seasonal Allergies: No Past Medical History Fatty tumor removal from arms, R ulnar transposition Respiratory: Sleep Apnea Currently Using CPAP: Yes Cardiac: High Cholesterol, Hypertension Sexually Transmitted Disease: No HIV/AIDS: No Gastrointestinal: Colitis, Liver Disease/Jaundice, Gastrointestinal Bleed, Cirrhosis Musculoskeletal: Chronic Back Pain Loss of Vision: Bilateral Hearing Impairment: Hard of Hearing Psychosocial: Anxiety Skin/Integumentary: Psoriasis History of Blood Disorders: No Adverse Reaction to Blood Jackson: No (N/A) Family History Cardiovascular disease 19 FATHER Diabetes mellitus 19 FATHER FH: hypertension 19 MOTHER Myocardial infarction 19 FATHER 19 MOTHER G8 BROTHER No Pertinent Family Hx Review of Systems Constitutional: no symptoms reported EENTM: no symptoms reported Respiratory: no symptoms reported Cardiovascular: no symptoms reported Gastrointestinal: abdominal pain Genitourinary: no symptoms reported Musculoskeletal: no symptoms reported Skin: no symptoms reported Psychiatric/Neurological: See HPI Physical Exam Physical Exam Vital Signs Vital Signs - First Documented 06/22/20 06/22/20 03:37 05:44 Temp 36.8 Pulse 71 Resp 20 B/P (MAP) 140/73 (95) Pulse Ox 98 O2 Delivery Room Air Capillary Refill : Less Than 3 Seconds Height, Weight, BMI Height: 5'10.00" Weight: 289lbs. 0.0oz. [id number]; 34.81 BMI Method:Stated General Appearance: No Apparent Distress Neck: Normal Inspection Respiratory: Lungs Clear, Normal Breath Sounds Cardiovascular: Regular Rate, Rhythm, No Edema Gastrointestinal: Normal Bowel Sounds, Tenderness Rectal: Deferred Back: No Vertebral Tenderness, CVA Tenderness (R) Extremity: Normal Capillary Refill, No Calf Tenderness, No Pedal Edema Neurologic/Psychiatric: Alert, Oriented x3 Skin: Normal Color Results Results/Procedures Labs Laboratory Tests 06/22/20 03:45 Patient resulted labs reviewed. Assessment/Plan Admission Diagnosis Ulcerative colitis flare Admission Status: Observation Assessment and Plan 1. UC Flare -hydrocortisone injection -consult general surgery for bloody stools 2. Hepatic encephalopathy with hyperammonemia -Lactulose -restart Rifaximin -IVF LR 3. Anemia -monitor with CBC 4. H/o DVT -holding Eliquis 5. Abd/Back Pain -Catadion IVONNE BARRIGA DO 06/23/20 0519: History of Present Illness HPI/Chief Complaint CC: Confusion with rectal bleeding HPI: This is a clinic pt of mine with a hx of cirrhosis with ulcerative colitis who presents to the ER with abdominal pain, rectal bleeding, and confusion. Pt was found to have an ammonia level of 127. Dr. Zepeda will be consulted for rectal bleeding. Pt overall is doing a little better, his is at the bedside, and I have restarted all of his home medications in addition to multiple doses of lactulose to clear ammonia level. Past Xfwzqto-Xykvdc-Xegxuy Hx Past Med/Social Hx: Reviewed Nursing Past Med/Soc Hx, Reviewed and Corrections made Patient Social History Marrital Status: Employed/Student: unemployed Alcohol Use: Denies Use Smoking Status: Never a Smoker Past Medical History Respiratory: Sleep Apnea Cardiac: Deep Vein Thrombosis, High Cholesterol, Hypertension Gastrointestinal: Colitis, Gastroesophageal Reflux, Gastrointestinal Bleed, Hemorrhoids, Cirrhosis Musculoskeletal: Chronic Back Pain Family History Cardiovascular disease 19 FATHER Diabetes mellitus 19 FATHER FH: hypertension 19 MOTHER Myocardial infarction 19 FATHER 19 MOTHER G8 BROTHER Review of Systems Constitutional: see HPI, malaise, weakness Gastrointestinal: melena Physical Exam Physical Exam General Appearance: No Apparent Distress, Chronically ill Eyes: Right Eye Normal Inspection, Right Eye PERRL HEENT: PERRL/EOMI, Normal ENT Inspection, Pharynx Normal, Moist Mucous Membranes Neck: Full Range of Motion, Normal Inspection, Non Tender Respiratory: Chest Non Tender, Lungs Clear, Normal Breath Sounds, No Accessory Muscle Use, No Respiratory Distress Cardiovascular: Regular Rate, Rhythm, No Edema, No Gallop, No JVD, No Murmur, Normal Peripheral Pulses Gastrointestinal: Normal Bowel Sounds, No Organomegaly, No Pulsatile Mass, Non Tender, Soft Back: Normal Inspection, No CVA Tenderness, No Vertebral Tenderness Extremity: Normal Capillary Refill, Normal Inspection, Normal Range of Motion, Non Tender, No Calf Tenderness, No Pedal Edema Neurologic/Psychiatric: Alert, Oriented x3, No Motor/Sensory Deficits, Normal Mood/Affect Skin: Normal Color, Warm/Dry Lymphatic: No Adenopathy Assessment/Plan Admission Diagnosis Assessment: Hepatic encephalopathy UC flare Hematachezia h/o DVT unprovoked Anemia iron deficiency Plan: Lactulose Dr Zepeda Monitor closely Admission Status: Observation Diagnosis/Problems Diagnosis/Problems (1) Hepatic encephalopathy Status: Acute (2) Abdominal pain Status: Acute Qualifiers: Abdominal location: generalized Qualified Codes: R10.84 - Generalized abdominal pain (3) Ulcerative colitis Status: Chronic Qualifiers: Ulcerative colitis location: unspecified ulcerative colitis location Digestive disease complication type: unspecified complication Qualified Codes: K51.919 - Ulcerative colitis, unspecified with unspecified complications (4) Blood per rectum (5) Essential (primary) hypertension Status: Chronic Supervisory-Addendum Brief Verification & Attestation Participated in pt care: history, MDM, physical Personally performed: exam, history, MDM, supervision of care Care discussed with: Medical Student Procedures: n/a Results interpretation: Verified all documentation Verification and Attestation of Medical Student E/M Service A medical student performed and documented this service in my presence. I reviewed and verified all information documented by the medical student and made modifications to such information, when appropriate. I personally performed the physical exam and medical decision making. Ivonne Barriga, Jun 23, 2020,05:19 ROGER NICHOLS,MED STUDEN Jun 22, 2020 11:03 IVONNE BARRIGA DO Jun 23, 2020 05:19
[2020-06-22 12:00] VITALS: BP 115/68
[2020-06-22] MEDS ORDERED: FOLIC ACID 1 MG TAB PO SCH (12:00)
[2020-06-22] MEDS ORDERED: NON-FORMULARY MEDICATION 1 EA EA (Vitamin A 8,000 UNIT) PO SCH (12:00)
[2020-06-22] MEDS ORDERED: KCL 10 MEQ TAB (MICRO K) PO SCH (12:00)
--- NOTE | 2020-06-22 12:52 | Consultation - Surgery ---
BIRGIT PAUL MED STUDENT 06/22/20 1252: History of Present Illness History of Present Illness Patient Consulted On(sindhu/time) 06/22/20 12:45 Date Seen by Provider: Jun 22, 2020 Time Seen by Provider: 12:30 Reason for Visit: UC flare and hepatic encephalopathy History of Present Illness Surgery consult to UC flare HPI per ER: Patient is a 55-year-old male who presents to the emergency room today complaining of a flare of his ulcerative colitis over the last 3 weeks. Patient states he has been having bloody bowel movements up to 3-4 times daily. Patient is also concerned that his liver disease might be worsening a little bit and his ammonia level might be climbing. Patient has been a little bit more confused of late. He has not increased his home daily doses of lactulose. Patient states that he has been compliant with his sulfasalazine. Patient has not had any fever. He complains of some abdominal discomfort. He points to the lower abdomen and right side of his abdomen as the source of his pain. Patient last saw his primary care physician about a month ago. No changes were made to his medications at that time. Patient states that he was unable to sleep secondary to abdominal discomfort and some back spasms this evening. Patient states that his back spasms are chronic in nature. Patient has not taken any pain medications for his abdominal pain. Pt is a 55y/o M with PMH of UC and cirrhosis. Pt presented to ER earlier today for confusion, abd pain, and bloody BM 2/2 UC flare. Pt states hematochezia started roughly 3 weeks ago, 3-4 BM per day, roughly a week following the onset of the UC flare he began to notice increased confusion too. The abd pain and hematochezia has been non-progressive since onset. Abd pain is worse over RUQ and LUQ, 7/10 right now, no radiation. Pt states its been 'months' since he last changed outpt med doses for cirrhosis or UC. Pt states he received a EGD and colonoscopy about a month ago which showed grade 2 esophageal varices and indeterminate colonoscopy findings due to poor prep. Pt denies chest pain, palpitations, fevers, or N/Ving. Allergies and Home Medications Allergies Coded Allergies: No Known Drug Allergies (Verified , 02/20/19) Home Medications Amlodipine Besylate 5 Mg Tablet, 5 MG PO DAILY, (Reported) Apixaban 5 Mg Tablet, 5 MG PO BID, (Reported) Bisoprolol Fumarate 10 Mg Tablet, 10 MG PO DAILY, (Reported) Citalopram Hydrobromide 40 Mg Tablet, 40 MG PO DAILY, (Reported) Ergocalciferol (Vitamin D2) 1,250 Mcg Capsule, 1,250 MCG PO SAT, (Reported) Folic Acid 1 Mg Tablet, 1 MG PO 1200, (Reported) Lactulose 10 Gm/15 Ml Solution, 15 ML PO BID PRN for CONSTIPATION-3RD LINE, (Reported) Magnesium Oxide 400 Mg Tablet, 400 MG PO BID, (Reported) Methotrexate Sodium 2.5 Mg Tablet, 20 MG PO SUN, (Reported) TAKES 8 (2.5MG) TABS Omeprazole 40 Mg Capsule.dr, 40 MG PO DAILY, (Reported) Potassium Chloride 10 Meq Capsule.er, 10 MEQ PO 1200, (Reported) Rifaximin 550 Mg Tablet, 550 MG PO BID, (Reported) LAST FILLED 02-28-2020 #180/90 DAY SUPPLY Spironolactone 25 Mg Tablet, 50 MG PO DAILY, (Reported) TAKES 2 (25MG) TABS Sulfasalazine 500 Mg Tablet, 3,000 MG PO HS, (Reported) TAKES 6 (500MG) TABS LAST FILLED 03-18-2020 #126/21 DAY SUPPLY Venlafaxine HCl 25 Mg Tablet, 25 MG PO DAILY, (Reported) Vitamin A 8,000 Unit Capsule, 8,000 UNIT PO 1200, (Reported) Past [place]-Osiipg-Vlzrxp Hx Patient Social History Smoking Status: Former Smoker Former Smoker, Quit: May 01, 2015 Type Used: Cigarettes 2nd Hand Smoke Exposure: No Recent Hopitalizations: No Alcohol Use?: No Have you traveled recently?: No Immunizations Up To Date Tetanus Booster (TDap): Unknown Date of Influenza Vaccine: Mar 27, 2020 Seasonal Allergies Seasonal Allergies: No Surgeries History of Surgeries: Yes Respiratory History of Respiratory Disorde: No Respiratory Disorders: Sleep Apnea Cardiovascular History of Cardiac Disorders: Yes Cardiac Disorders: High Cholesterol, Hypertension Neurological History of Neurological Disord: No Reproductive System Sexually Transmitted Disease: No HIV/AIDS: No Genitourinary History of Genitourinary Disor: No Gastrointestinal History of Gastrointestinal Di: Yes Gastrointestinal Disorders: Colitis, Liver Disease/Jaundice, Gastrointestinal Bleed, Cirrhosis Musculoskeletal History of Musculoskeletal Dis: No Musculoskeletal Disorders: Chronic Back Pain Endocrine History of Endocrine Disorders: No HEENT History of HEENT Disorders: Yes (GLASSES) Loss of Vision: Bilateral Hearing Impairment: Hard of Hearing Cancer History of Cancer: No Psychosocial History of Psychiatric Problem: No Behavioral Health Disorders: Anxiety Integumentary History of Skin or Integumenta: Yes Skin/Integumentary Disorders: Psoriasis Blood Transfusions History of Blood Disorders: No Adverse Reaction to a Blood Tr: No (N/A) Family Medical History Significant Family History: No Pertinent Family Hx Family Medial History: Cardiovascular disease 19 FATHER Diabetes mellitus 19 FATHER FH: hypertension 19 MOTHER Myocardial infarction 19 FATHER 19 MOTHER G8 BROTHER Review of Systems-General Constitutional: No chills, No fever; weakness EENTM: hearing loss; No double vision, No hoarseness Respiratory: No cough, No dyspnea on exertion, No short of breath Cardiovascular: No chest pain; edema (1+ b/l ); No palpitations Gastrointestinal: RUQ, LUQ, abdominal pain; No constipation, No dysphagia, No hematemesis, No heartburn, No nausea, No vomiting; other (hematochezia ) Genitourinary: No dysuria, No incontinence Musculoskeletal: No joint swelling, No muscle twitching Skin: No change in color, No change in hair/nails Psychiatric/Neurological: Denies Headache, Denies Tingling; Weakness, Other (confusion) Physical Exam-General Problems Physical Exam Vital Signs Vital Signs - First Documented 06/22/20 06/22/20 03:37 05:44 Temp 36.8 Pulse 71 Resp 20 B/P (MAP) 140/73 (95) Pulse Ox 98 O2 Delivery Room Air Capillary Refill : Less Than 3 Seconds General Appearance: WD/WN, no apparent distress, obese HEENT: PERRL/EOMI, normal ENT inspection Neck: non-tender, normal inspection Respiratory: lungs clear, normal breath sounds, no respiratory distress, no accessory muscle use Cardiovascular: regular rate, rhythm, no murmur Gastrointestinal: normal bowel sounds; No abnormal bowel sounds; distended; No guarding, No rebound; tenderness (worse over RLQ); No mass Rectal: deferred Back: normal inspection, no vertebral tenderness Extremities: normal range of motion, non-tender, pedal edema (1+ b/l) Neurologic/Psychiatric: supervisor rolling room II-XII nml as tested, alert, normal mood/affect, oriented x 3 Skin: normal color, warm/dry Lymphatic: no adenopathy Data Review Labs Laboratory Tests 06/22/20 03:45: White Blood Count 4.4, Red Blood Count 3.83L, Hemoglobin 10.3L, Hematocrit 32L, Mean Corpuscular Volume 84, Mean Corpuscular Hemoglobin 27, Mean Corpuscular Hemoglobin Concent 32, Red Cell Distribution Width 15.1H, Platelet Count 176, Mean Platelet Volume 9.2, Immature Granulocyte % (Auto) 1, Neutrophils (%) (Auto) 72, Lymphocytes (%) (Auto) 14, Monocytes (%) (Auto) 11, Eosinophils (%) (Auto) 2, Basophils (%) (Auto) 1, Neutrophils # (Auto) 3.2, Lymphocytes # (Auto) 0.6L, Monocytes # (Auto) 0.5, Eosinophils # (Auto) 0.1, Basophils # (Auto) 0.0, Immature Granulocyte # (Auto) 0.0, Prothrombin Time 17.6H, INR Comment 1.4, Activated Partial Thromboplast Time 52H, Sodium Level 136, Potassium Level 4.2, Chloride Level 105, Carbon Dioxide Level 21, Anion Gap 10, Blood Urea Nitrogen 11, Creatinine 0.90, Estimat Glomerular Filtration Rate > 60, BUN/Creatinine Ratio 12, Glucose Level 93, Calcium Level 8.3L, Corrected Calcium 9.0, Total Bilirubin 1.5H, Aspartate Amino Transf (AST/SGOT) 49H, Alanine Aminotransferase (ALT/SGPT) 21, Alkaline Phosphatase 321H, Ammonia 127H, Total Protein 6.5, Albumin 3.1L Assessment/Plan Assessment/Plan Admission Diagonsis UC flare and hepatic encephalopathy Assessment/Plan UC flare Hepatic encephalopathy- likely 2/2 GI blood loss from current UC flare. Ammonium level 127. Cirrhosis Hx of esophageal varicies Hx of DVT normocytic anemia- pt 10.3 in ER, below baseline. Normal diet Follow labs serially. SCD, hold home bloodthinner. Transfuse PRBCs as needed Consult GI as outpt. No intervention planned at this time. Lactulose and Rifaximin for hyperammonemia. Hydrocortisone injection given, continue sulfasalazine for UC flare IV fluids and electrolyte management. BERNICE ZEPEDA DO 06/23/20 1526: History of Present Illness History of Present Illness History of Present Illness Consult by Dr. Casas for bloody bowel movements/UC. Patient is a 55 year old male with bloody bowel movements for about 3 weeks. Has been having 3-4 bright red bloody bowel movements per day. Has ulcerative colitis and does take his medication regularly. Patient with 4/10 diffuse abdominal pain. Similar to when he has had previous flares. Patient with recent hospitalization as well. Patient has not followed with GI yet but does have an appointment. Patient has been having some confusion. [place] due to his ammonia level being increased. He is on Xarelto due to history of blood clot. Allergies and Home Medications Allergies Coded Allergies: No Known Drug Allergies (Verified , 02/20/19) Home Medications Amlodipine Besylate 5 Mg Tablet, 5 MG PO DAILY, (Reported) Apixaban 5 Mg Tablet, 5 MG PO BID, (Reported) Bisoprolol Fumarate 10 Mg Tablet, 10 MG PO DAILY, (Reported) Citalopram Hydrobromide 40 Mg Tablet, 40 MG PO DAILY, (Reported) Ergocalciferol (Vitamin D2) 1,250 Mcg Capsule, 1,250 MCG PO SAT, (Reported) Folic Acid 1 Mg Tablet, 1 MG PO 1200, (Reported) Lactulose 10 Gm/15 Ml Solution, 15 ML PO BID PRN for CONSTIPATION-3RD LINE, (Reported) Magnesium Oxide 400 Mg Tablet, 400 MG PO BID, (Reported) Methotrexate Sodium 2.5 Mg Tablet, 20 MG PO SUN, (Reported) TAKES 8 (2.5MG) TABS Omeprazole 40 Mg Capsule.dr, 40 MG PO DAILY, (Reported) Potassium Chloride 10 Meq Capsule.er, 10 MEQ PO 1200, (Reported) Rifaximin 550 Mg Tablet, 550 MG PO BID, (Reported) LAST FILLED 02-28-2020 #180/90 DAY SUPPLY Spironolactone 25 Mg Tablet, 50 MG PO DAILY, (Reported) TAKES 2 (25MG) TABS Sulfasalazine 500 Mg Tablet, 3,000 MG PO HS, (Reported) TAKES 6 (500MG) TABS LAST FILLED 03-18-2020 #126/21 DAY SUPPLY Venlafaxine HCl 25 Mg Tablet, 25 MG PO DAILY, (Reported) Vitamin A 8,000 Unit Capsule, 8,000 UNIT PO 1200, (Reported) Patient Home Medication List Home Medication List Reviewed: Yes Past Yfdoozj-Dryhmv-Lajjta Hx Reviewed Nursing Assessment Reviewed/Agree w Nursing PMH: Yes Family Medical History Significant Family History: No Pertinent Family Hx Family Medial History: Cardiovascular disease 19 FATHER Diabetes mellitus 19 FATHER FH: hypertension 19 MOTHER Myocardial infarction 19 FATHER 19 MOTHER G8 BROTHER Review of Systems-General Constitutional: No fever; weakness EENTM: hearing loss; No double vision, No hoarseness Respiratory: No dyspnea on exertion, No short of breath Cardiovascular: No chest pain; edema (1+ b/l ); No palpitations Gastrointestinal: abdominal pain; No constipation, No dysphagia, No hematemesis, No heartburn, No nausea, No vomiting; other (hematochezia ) Genitourinary: No dysuria, No incontinence Musculoskeletal: No joint swelling, No muscle twitching Skin: No change in color, No change in hair/nails Psychiatric/Neurological: Denies Anxiety, Denies Depressed, Denies Emotional Problems, Denies Headache, Denies Tingling; Weakness, Other (confusion) All Other Systems Reviewed Negative Unless Noted: Yes (Negative excepted noted.) Physical Exam-General Problems Physical Exam General Appearance: WD/WN, no apparent distress, obese HEENT: PERRL/EOMI, normal ENT inspection Neck: non-tender Respiratory: chest non-tender, no respiratory distress, no accessory muscle use Cardiovascular: regular rate, rhythm, no JVD Gastrointestinal: normal bowel sounds; No guarding, No rebound; tenderness (diffusely, minimal); No mass Rectal: deferred Back: normal inspection, no vertebral tenderness Extremities: normal range of motion, non-tender, pedal edema (1+ b/l) Neurologic/Psychiatric: supervisor rolling room II-XII nml as tested, alert, normal mood/affect, oriented x 3 Skin: normal color, warm/dry Lymphatic: no adenopathy Assessment/Plan Assessment/Plan Assessment/Plan UC flare Hepatic encephalopathy- likely 2/2 GI blood loss from current UC flare. Ammonium level 127. Cirrhosis Hx of esophageal varicies Hx of DVT normocytic anemia- pt 10.3 in ER, below baseline. Normal diet Follow labs serially. SCD, Xarelto on hold. Transfuse PRBCs as needed Consult GI as outpt. No intervention planned at this time. Lactulose and Rifaximin for hyperammonemia. Hydrocortisone injection given, continue sulfasalazine for UC flare IV fluids and electrolyte management. Supervisory-Addendum Brief Verification & Attestation Participated in pt care: history, MDM, physical Personally performed: exam, history, MDM, supervision of care Care discussed with: Medical Student Procedures: n/a Results interpretation: Verified all documentation Verification and Attestation of Medical Student E/M Service A medical student performed and documented this service in my presence. I reviewed and verified all information documented by the medical student and made modifications to such information, when appropriate. I personally performed the physical exam and medical decision making. Bernice Zepeda, Jun 22, 2020,15:27 BIRGIT PAUL MED STUDENT Jun 22, 2020 12:52 BERNICE ZEPEDA DO Jun 23, 2020 15:26
[2020-06-22 16:00] VITALS: BP 140/64
[2020-06-22 19:47] VITALS: BP 127/59
[2020-06-22] MEDS ORDERED: APIXABAN 5 MG (ELIQUIS) TABLET PO SCH (21:00)
[2020-06-22] MEDS ORDERED: sulfaSALAzine 500 MG (AZULFIDINE) TAB PO SCH (21:00)
[2020-06-22] MEDS ORDERED: RIFAXIMIN 550 MG TABLET (XIFAXAN) PO SCH (21:00)
[2020-06-22] MEDS ORDERED: MAGNESIUM OXIDE (MAG-OX)400 MG TAB PO SCH (21:00)
[2020-06-22 23:35] VITALS: BP 107/53
[2020-06-23] MEDS: LACTATED RINGERS 1,000 ML IV SCH ×2 (01:19→06:53)
[2020-06-23 03:47] VITALS: BP 120/60
[2020-06-23 05:48] LABS: ALBUMIN 2.7 GM/DL (3.2-4.5)
[2020-06-23 05:49] LABS: CHLORIDE 107 MMOL/L (98-107); POTASSIUM 3.7 MMOL/L (3.6-5.0); SODIUM 135 MMOL/L (135-145)
[2020-06-23 05:50] LABS: AMMONIA 75 UMOL/L (11-32); CALCIUM 7.8 MG/DL (8.5-10.1)
[2020-06-23 05:51] LABS: GLUCOSE 103 MG/DL (70-105); TOTAL PROTEIN 5.4 GM/DL (6.4-8.2)
[2020-06-23 05:52] LABS: CARBON DIOXIDE 22 MMOL/L (21-32)
[2020-06-23 05:53] LABS: BILIRUBIN,TOTAL 1.2 MG/DL (0.1-1.0)
[2020-06-23 05:55] LABS: ALKALINE PHOSPHATASE 262 U/L (40-136); BASOPHILS % (AUTO) 1 % (0-10); CREATININE SERUM 0.78 MG/DL (0.60-1.30); EOSINOPHILS # (AUTO) 0.1 10^3/uL (0.0-0.3); EOSINOPHILS % (AUTO) 3 % (0-10); GFR ESTIMATED > 60; HEMATOCRIT 27 % (40-54); HEMOGLOBIN 8.6 g/dL (13.3-17.7); LYMPHOCYTES # (AUTO) 0.9 10^3/uL (1.0-4.0); LYMPHOCYTES % (AUTO) 23 % (12-44); MEAN CORPUSCULAR HEMOGLOBIN 27 pg (25-34); MEAN CORPUSCULAR HGB CONC 32 g/dL (32-36); MEAN CORPUSCULAR VOLUME 84 fL (80-99); MEAN PLATELET VOLUME 9.7 fL (9.0-12.2); MONOCYTES # (AUTO) 0.2 10^3/uL (0.0-1.0); MONOCYTES % (AUTO) 6 % (0-12); NEUTROPHILS # (AUTO) 2.5 10^3/uL (1.8-7.8); NEUTROPHILS % (AUTO) 67 % (42-75); PLATELET COUNT 159 10^3/uL (130-400); WHITE BLOOD COUNT 3.8 10^3/uL (4.3-11.0)
[2020-06-23 05:56] LABS: BUN/CREATININE RATIO 13
[2020-06-23 05:58] LABS: ALANINE AMINOTRANSFERASE 17 U/L (0-55)
--- NOTE | 2020-06-23 07:38 | Progress Note - Surgery ---
BIRGIT PAUL MED STUDENT 06/23/20 0737: Subjective Date Seen by a Provider: Jun 23, 2020 Time Seen by a Provider: 07:20 Subjective/Events-last exam Pt states his confusion is improved compared to yesterday- feels more alert today Ammonia decreased to 75 from 127 yesterday. Pt states last episode of hematochezia was last night- he hasnt noticed any change in frequency or intensity of UC flare episodes since admission- similiar to last 3 weeks sxs. Abd pain is improved 4/10 this morning (7/10 at yesterdays visit). No N/Ving, chest pain, palpiations, SOB, night sweats. Hemoglobin 8.6 today from 10.3 yesterday. Review of Systems General: No Chills, No Night Sweats Pulmonary: No Dyspnea, No Cough, No Pleuritic Chest Pain Cardiovascular: No: Chest Pain, Palpitations Gastrointestinal: Abdominal Pain, Diarrhea, Hematochezia; No: Nausea, Vomiting, Constipation, Melena Genitourinary: No Dysuria, No Incontinence Objective Exam Vital Signs Date Time Temp Pulse Resp B/P (MAP) Pulse Ox O2 Delivery O2 Flow Rate FiO2 06/23/20 03:47 36.5 68 20 120/60 (80) 97 Room Air 06/22/20 23:35 36.9 71 20 107/53 (71) 97 Room Air 06/22/20 20:15 Room Air 06/22/20 19:47 37.0 76 18 127/59 (81) 97 Room Air 06/22/20 16:00 36.6 69 20 140/64 (89) 99 Room Air 06/22/20 12:00 36.4 68 20 115/68 (84) 98 Room Air 06/22/20 08:06 36.8 67 18 106/63 (77) 97 Room Air 06/22/20 08:00 Room Air I & O 06/23/20 07:00 Intake Total 1620 ml Balance 1620 ml Capillary Refill : Less Than 3 Seconds General Appearance: No Apparent Distress, Chronically ill HEENT: PERRL/EOMI, Normal ENT Inspection Neck: Normal Inspection, Non Tender Respiratory: Chest Non Tender, Lungs Clear, Normal Breath Sounds, No Accessory Muscle Use, No Respiratory Distress Cardiovascular: Regular Rate, Rhythm, No Murmur, Normal Peripheral Pulses Gastrointestinal: normal bowel sounds; No abnormal bowel sounds; distended; No guarding, No rebound; tenderness (diffuse, light tendernes to palpation. ); No mass Extremity: Normal Capillary Refill, Normal Inspection, Non Tender, No Calf Tenderness Neurologic/Psychiatric: Alert, Oriented x3, No Motor/Sensory Deficits, Normal Mood/Affect Skin: Normal Color, Warm/Dry Lymphatic: No Adenopathy Results Lab Laboratory Tests 06/23/20 05:34: White Blood Count 3.8L, Red Blood Count 3.19L, Hemoglobin 8.6L, Hematocrit 27L, Mean Corpuscular Volume 84, Mean Corpuscular Hemoglobin 27, Mean Corpuscular Hemoglobin Concent 32, Red Cell Distribution Width 15.0H, Platelet Count 159, Mean Platelet Volume 9.7, Immature Granulocyte % (Auto) 1, Neutrophils (%) (Auto) 67, Lymphocytes (%) (Auto) 23, Monocytes (%) (Auto) 6, Eosinophils (%) (Auto) 3, Basophils (%) (Auto) 1, Neutrophils # (Auto) 2.5, Lymphocytes # (Auto) 0.9L, Monocytes # (Auto) 0.2, Eosinophils # (Auto) 0.1, Basophils # (Auto) 0.0, Immature Granulocyte # (Auto) 0.0, Sodium Level 135, Potassium Level 3.7, Chloride Level 107, Carbon Dioxide Level 22, Anion Gap 6, Blood Urea Nitrogen 10, Creatinine 0.78, Estimat Glomerular Filtration Rate > 60, BUN/Creatinine Ratio 13, Glucose Level 103, Calcium Level 7.8L, Corrected Calcium 8.8, Total Bilirubin 1.2H, Aspartate Amino Transf (AST/SGOT) 45H, Alanine Aminotransferase (ALT/SGPT) 17, Alkaline Phosphatase 262H, Ammonia 75H, Total Protein 5.4L, Albumin 2.7L Assessment/Plan Assessment/Plan Assessment/Plan UC flare Hepatic encephalopathy- improved today. Cirrhosis Hx of esophageal varicies Hx of DVT normocytic anemia - Hemoglobin decreased today (8.6 from 10.3) no transfusion was required. Normal diet Follow labs serially. Transfuse PRBCs as needed Consult GI as outpt. No intervention planned at this time. Lactulose and Rifaximin for hyperammonemia. continue sulfasalazine for UC flare IV fluids and electrolyte management, PO tramadol for pain. BERNICE ZEPEDA DO 06/23/20 1514: Subjective Subjective/Events-last exam Feels better. Confusion improved. Not has any other bloody bm today. Abdominal pain improved. Denies n/v fever sweats chills shortness of breath or chest pain. Hgb down to 8.6 Objective Exam General Appearance: No Apparent Distress, Chronically ill, Obese HEENT: PERRL/EOMI, Normal ENT Inspection Neck: Normal Inspection, Non Tender Respiratory: Chest Non Tender, No Accessory Muscle Use, No Respiratory Distress Cardiovascular: Regular Rate, Rhythm, No JVD Gastrointestinal: No guarding, No rebound; tenderness (diffuse, minimal and less than yesterday) Extremity: Non Tender, No Calf Tenderness Neurologic/Psychiatric: Alert, Oriented x3, No Motor/Sensory Deficits, Normal Mood/Affect Skin: Normal Color, Warm/Dry Lymphatic: No Adenopathy Assessment/Plan Assessment/Plan Assessment/Plan UC flare Hepatic encephalopathy- improved today. Cirrhosis Diffuse abdominal pain- improving Hx of esophageal varicies Hx of DVT normocytic anemia - Hemoglobin decreased today (8.6 from 10.3) no transfusion was required. Normal diet Follow labs serially. Transfuse PRBCs as needed Keep gi appointment for UC outpatient No intervention planned at this time. Lactulose and Rifaximin for hyperammonemia. continue sulfasalazine for UC flare IV fluids and electrolyte management, Prednisone 50 mg daily Supervisory-Addendum Brief Verification & Attestation Participated in pt care: history, MDM, physical Personally performed: exam, history, MDM, supervision of care Care discussed with: Medical Student Procedures: n/a Results interpretation: Verified all documentation Verification and Attestation of Medical Student E/M Service A medical student performed and documented this service in my presence. I reviewed and verified all information documented by the medical student and made modifications to such information, when appropriate. I personally performed the physical exam and medical decision making. Bernice Zepeda, Jun 23, 2020,15:33 BIRGIT PAUL MED STUDENT Jun 23, 2020 07:37 BERNICE ZEPEDA DO Jun 23, 2020 15:14
[2020-06-23 08:00] VITALS: BP 136/63
[2020-06-23] MEDS ORDERED: BISOPROLOL 5 MG TAB (ZEBETA) PO SCH (09:00)
[2020-06-23] MEDS ORDERED: SPIRONOLACTONE 25 MG (ALDACTONE) TAB PO SCH (09:00)
[2020-06-23] MEDS ORDERED: amLODIPine 5 MG (NORVASC) TAB PO SCH (09:00)
[2020-06-23] MEDS ORDERED: PANTOPRAZOLE 40 MG (PROTONIX) TAB PO SCH (09:00)
[2020-06-23] MEDS ORDERED: PATIENT MAY USE OWN MEDS, ALL MC SCH (09:00)
[2020-06-23] MEDS: LACTULOSE SYRUP 10GM/15ML (ENULOSE) 30ML UDC PO SCH ×5 (09:00→19:56)
[2020-06-23] MEDS ORDERED: IRON SUCROSE 200 MG/10 ML (VENOFER) VIAL IV ONE (10:15)
[2020-06-23] MEDS ORDERED: ONDANSETRON 4 MG/2 ML (SDV) Z0FRAN IVP PRN (10:45)
[2020-06-23] MEDS ORDERED: diphenhydrAMINE 25 MG TAB (BENADRYL) PO PRN (10:45)
[2020-06-23] MEDS ORDERED: ACETAMINOPHEN 500 MG TAB (TYLENOL) PO PRN (10:45)
[2020-06-23] MEDS ORDERED: CALCIUM CARBONATE 500 MG (TUMS) TAB.CHEW PO PRN (10:45)
--- NOTE | 2020-06-23 11:08 | Progress Note - Hospitalist ---
ROGER NICHOLS,[facility] STUD 06/23/20 1108: Subjective HPI/CC On Admission Date Seen by Provider: Jun 23, 2020 Time Seen by Provider: 10:00 CC: Confusion with rectal bleeding HPI: This is a clinic pt of mine with a hx of cirrhosis with ulcerative colitis who presents to the ER with abdominal pain, rectal bleeding, and confusion. Pt was found to have an ammonia level of 127. Dr. Zepeda will be consulted for rectal bleeding. Pt overall is doing a little better, his is at the bedside, and I have restarted all of his home medications in addition to multiple doses of lactulose to clear ammonia level. Subjective/Events-last exam Pleasant and reports feeling better overall this am. Denies CP/SOB/fever/chills. Endorses continued abdominal pain & bloody BMs attributed to UC flare. He ate breakfast & reports good appetite. Review of Systems General: No Chills HEENT: No Head Aches Pulmonary: No Dyspnea Cardiovascular: No: Chest Pain, Edema Gastrointestinal: Abdominal Pain, Hematochezia Genitourinary: No Dysuria Neurological: No: Confusion Objective Exam Vital Signs Vital Signs Date Time Temp Pulse Resp B/P (MAP) Pulse Ox O2 Delivery O2 Flow Rate FiO2 06/23/20 08:00 36.4 67 18 136/63 (87) 98 Room Air Capillary Refill : Less Than 3 Seconds General Appearance: No Apparent Distress Respiratory: Chest Non Tender, Lungs Clear, Normal Breath Sounds, No Respiratory Distress Cardiovascular: Regular Rate, Rhythm, No Edema, No Murmur Gastrointestinal: Tenderness Rectal: Deferred Back: Normal Inspection, No CVA Tenderness Extremity: Normal Inspection, No Pedal Edema Neurologic/Psychiatric: Alert, Oriented x3 Skin: Normal Color Results/Procedures Lab Laboratory Tests 06/23/20 05:34 Patient resulted labs reviewed. Assessment/Plan Assessment and Plan Assess & Plan/Chief Complaint 1. UC Flare -hydrocortisone injection -consult general surgery for bloody stools -start home prednisone -sulfasalazine 2. Hepatic encephalopathy with hyperammonemia -Lactulose -Rifaximin 3. Anemia -monitor with CBC -Venofer 4. H/o DVT -holding Eliquis 5. Abd/Back Pain -APAP -Tramadol 6. HTN -Amlodipine -Spironolactone IVONNE BARRIGA DO 06/24/20 0523: Subjective Subjective/Events-last exam Pt just not ready to go home yet because he is still having rectal bleeding Dr. Zepeda started him on Prednisone Will stop Eliquis considering he has been on it for a year since the bleeding continues because of the Eliquis that increases the ammonia level causing hepatic encephalopathy Will update Dr. Read: he called me back later in afternoon and he agreed with plan for DC Eliquis Heplocking IV fluid Overall feeling pretty good otherwise Updated on phone Review of Systems General: Fatigue Objective Exam General Appearance: No Apparent Distress, WD/WN, Chronically ill Respiratory: Chest Non Tender, Lungs Clear, Normal Breath Sounds, No Accessory Muscle Use, No Respiratory Distress Cardiovascular: Regular Rate, Rhythm, No Edema, No Gallop, No JVD, No Murmur, Normal Peripheral Pulses Neurologic/Psychiatric: Alert, Oriented x3, No Motor/Sensory Deficits, Normal Mood/Affect Assessment/Plan Assessment and Plan Assess & Plan/Chief Complaint DC Eliquis ad Dr Chatterjee agrees with plan along with Dr Zepeda if recurrent DVT occurs will need filter Supervisory-Addendum Brief Verification & Attestation Participated in pt care: history, MDM, physical Personally performed: exam, history, MDM, supervision of care Care discussed with: Medical Student Procedures: n/a Results interpretation: Verified all documentation Verification and Attestation of Medical Student E/M Service A medical student performed and documented this service in my presence. I reviewed and verified all information documented by the medical student and made modifications to such information, when appropriate. I personally performed the physical exam and medical decision making. Ivonne Barriga, Jun 24, 2020,05:21 ROGER NICHOLS,MED STUDEN Jun 23, 2020 11:08 IVONNE BARRIGA DO Jun 24, 2020 05:23
[2020-06-23 12:00] VITALS: BP 145/74
[2020-06-23] MEDS: VENLAFAXINE 50 MG (EFFEXOR) TABLET PO SCH (13:15)
[2020-06-23] MEDS: FOLIC ACID 1 MG TAB PO SCH (13:15)
[2020-06-23] MEDS: KCL 10 MEQ TAB (MICRO K) PO SCH (13:15)
[2020-06-23] MEDS ORDERED: predniSONE 20 MG TAB PO NR (13:30)
[2020-06-23] MEDS ORDERED: predniSONE 10 MG TAB ONE (13:38)
[2020-06-23 16:00] VITALS: BP 145/80
[2020-06-23 19:30] VITALS: BP 135/63
[2020-06-23] MEDS: sulfaSALAzine 500 MG (AZULFIDINE) TAB PO SCH (19:55)
[2020-06-23] MEDS: MAGNESIUM OXIDE (MAG-OX)400 MG TAB PO SCH (19:55)
[2020-06-23] MEDS: RIFAXIMIN 550 MG TABLET (XIFAXAN) PO SCH (19:56)
[2020-06-23 23:52] VITALS: BP 129/66
[2020-06-24 03:51] VITALS: BP 144/77
[2020-06-24 05:12] LABS: BASOPHILS % (AUTO) 1 % (0-10); EOSINOPHILS % (AUTO) 1 % (0-10); HEMATOCRIT 26 % (40-54); HEMOGLOBIN 8.6 g/dL (13.3-17.7); LYMPHOCYTES # (AUTO) 0.6 10^3/uL (1.0-4.0); LYMPHOCYTES % (AUTO) 10 % (12-44); MEAN CORPUSCULAR HEMOGLOBIN 27 pg (25-34); MEAN CORPUSCULAR HGB CONC 33 g/dL (32-36); MEAN CORPUSCULAR VOLUME 83 fL (80-99); MEAN PLATELET VOLUME 10.2 fL (9.0-12.2); MONOCYTES # (AUTO) 0.5 10^3/uL (0.0-1.0); MONOCYTES % (AUTO) 9 % (0-12); NEUTROPHILS # (AUTO) 4.5 10^3/uL (1.8-7.8); NEUTROPHILS % (AUTO) 79 % (42-75); PLATELET COUNT 155 10^3/uL (130-400); WHITE BLOOD COUNT 5.7 10^3/uL (4.3-11.0)
[2020-06-24 05:22] LABS: INR 1.3 (0.8-1.4); PROTHROMBIN TIME PATIENT 16.4 SEC (12.2-14.7)
[2020-06-24 05:23] LABS: ALBUMIN 2.7 GM/DL (3.2-4.5)
[2020-06-24 05:24] LABS: AMMONIA 59 UMOL/L (11-32); CHLORIDE 107 MMOL/L (98-107); POTASSIUM 3.9 MMOL/L (3.6-5.0); SODIUM 137 MMOL/L (135-145)
[2020-06-24 05:25] LABS: CALCIUM 7.8 MG/DL (8.5-10.1)
[2020-06-24 05:26] LABS: GLUCOSE 116 MG/DL (70-105); TOTAL PROTEIN 5.6 GM/DL (6.4-8.2)
[2020-06-24 05:27] LABS: CARBON DIOXIDE 23 MMOL/L (21-32)
[2020-06-24 05:29] LABS: ALKALINE PHOSPHATASE 254 U/L (40-136)
[2020-06-24 05:30] LABS: CREATININE SERUM 0.72 MG/DL (0.60-1.30); GFR ESTIMATED > 60
[2020-06-24 05:31] LABS: BUN/CREATININE RATIO 15
[2020-06-24 05:32] LABS: ALANINE AMINOTRANSFERASE 18 U/L (0-55)
[2020-06-24] MEDS: predniSONE 20 MG TAB PO SCH (06:34)
[2020-06-24 08:00] VITALS: BP 124/59
--- NOTE | 2020-06-24 08:00 | Progress Note - Surgery ---
LEMUELADELA MED STUDENT 06/24/20 0800: Subjective Date Seen by a Provider: Jun 24, 2020 Time Seen by a Provider: 07:40 Subjective/Events-last exam Patient laying in bed comfortably, alert and awake. States he has no pain at this time (down from 4/10 yesterday) though still with a moderate amount of bright red blood with stools which is consistent with the level at onset of his flare. Confusion much improved, ammonia decreased from 75 to 59, Hgb steady at 8.6 as yesterday. Denies abdominal pain, nausea, vomiting, CP, tachycardia, SOB, wheezing, extremity pain, back pain, headache, dizziness. Patient has been able to eat and ambulate w/o issue. Objective Exam Vital Signs Date Time Temp Pulse Resp B/P (MAP) Pulse Ox O2 Delivery O2 Flow Rate FiO2 06/24/20 03:51 36.4 73 15 144/77 (99) 97 NIV CPAP 06/23/20 23:52 36.9 75 18 129/66 (87) 95 Room Air 06/23/20 20:00 Room Air 06/23/20 19:30 36.6 71 18 135/63 (87) 95 Room Air 06/23/20 16:00 36.4 68 18 145/80 (101) 96 Room Air 06/23/20 12:00 36.4 71 18 145/74 (97) 98 Room Air 06/23/20 08:00 36.4 67 18 136/63 (87) 98 Room Air 06/23/20 07:57 Room Air I & O 06/24/20 07:00 Intake Total 3300 ml Balance 3300 ml Capillary Refill : Less Than 3 Seconds General Appearance: No Apparent Distress, WD/WN, Chronically ill HEENT: PERRL/EOMI, Normal ENT Inspection Neck: Normal Inspection, Non Tender Respiratory: Chest Non Tender, Lungs Clear, Normal Breath Sounds, No Accessory Muscle Use, No Respiratory Distress Cardiovascular: Regular Rate, Rhythm, No Edema, Normal Peripheral Pulses, Systolic Murmur (chronic since childhood) Peripheral Pulses: 2+ Carotid (R), 2+ Carotid (L), 2+ Dorsalis Pedis (R), 2+ Left Dors-Pedis (L), 2+ Radial Pulses (R), 2+ Radial Pulses (L) Gastrointestinal: normal bowel sounds, non tender; No soft, No guarding, No rebound; other (rigid, stated as normal for his flareups) Extremity: Normal Inspection, Non Tender, No Calf Tenderness, No Pedal Edema Neurologic/Psychiatric: Alert, Oriented x3, Normal Mood/Affect; No Disoriented Skin: Normal Color, Warm/Dry Lymphatic: No Adenopathy Results Lab Laboratory Tests 06/24/20 04:58: White Blood Count 5.7, Red Blood Count 3.16L, Hemoglobin 8.6L, Hematocrit 26L, Mean Corpuscular Volume 83, Mean Corpuscular Hemoglobin 27, Mean Corpuscular Hemoglobin Concent 33, Red Cell Distribution Width 14.6H, Platelet Count 155, Mean Platelet Volume 10.2, Immature Granulocyte % (Auto) 1, Neutrophils (%) (Auto) 79H, Lymphocytes (%) (Auto) 10L, Monocytes (%) (Auto) 9, Eosinophils (%) (Auto) 1, Basophils (%) (Auto) 1, Neutrophils # (Auto) 4.5, Lymphocytes # (Auto) 0.6L, Monocytes # (Auto) 0.5, Eosinophils # (Auto) 0.0, Basophils # (Auto) 0.0, Immature Granulocyte # (Auto) 0.0, Prothrombin Time 16.4H, INR Comment 1.3, Sodium Level 137, Potassium Level 3.9, Chloride Level 107, Carbon Dioxide Level 23, Anion Gap 7, Blood Urea Nitrogen 11, Creatinine 0.72, Estimat Glomerular Filtration Rate > 60, BUN/Creatinine Ratio 15, Glucose Level 116H, Calcium Level 7.8L, Corrected Calcium 8.8, Total Bilirubin 1.0, Aspartate Amino Transf (AST/SGOT) 40H, Alanine Aminotransferase (ALT/SGPT) 18, Alkaline Phosphatase 254H, Ammonia 59H, Total Protein 5.6L, Albumin 2.7L Assessment/Plan Assessment/Plan Assessment/Plan UC flare Hepatic encephalopathy - A/Ox3, ammonia decreasing Cirrhosis Diffuse abdominal pain- none presently Hx of esophageal varicies Hx of DVT normocytic anemia - Hemoglobin holding today at 8.6 Normal diet Transfuse PRBCs as needed Lactulose and Rifaximin for hyperammonemia continue sulfasalazine for UC flare IV fluids and electrolyte management Continue Prednisone 50 mg daily Hemoglobin stable, ammonia downtrending repeat labs tomorrow will discharge tomorrow if stable Keep GI appointment for UC outpatient No intervention indicated at this time BERNICE ZEPEDA DO 06/25/20 1432: Subjective Subjective/Events-last exam Patient with no pain now. Small amount of blood in stool today. Less overall. Confusion better. Denies n/v fever sweats chills shortness of breath or chest pain. Objective Exam General Appearance: No Apparent Distress, WD/WN, Chronically ill HEENT: PERRL/EOMI, Normal ENT Inspection Neck: Normal Inspection, Non Tender Respiratory: Chest Non Tender, No Accessory Muscle Use, No Respiratory Distress Cardiovascular: Regular Rate, Rhythm, No JVD Gastrointestinal: non tender, soft; No guarding, No rebound; other Extremity: Non Tender, No Calf Tenderness Neurologic/Psychiatric: Alert, Oriented x3, No Motor/Sensory Deficits, Normal Mood/Affect Skin: Normal Color, Warm/Dry Lymphatic: No Adenopathy Assessment/Plan Assessment/Plan Assessment/Plan UC flare Hepatic encephalopathy - A/Ox3, ammonia decreasing Abdominal pain improved Cirrhosis Diffuse abdominal pain- none presently Hx of esophageal varicies Hx of DVT normocytic anemia - Hemoglobin holding today at 8.6 Normal diet Transfuse PRBCs as needed Lactulose and Rifaximin for hyperammonemia continue sulfasalazine/Prednisone for UC flare IV fluids and electrolyte management Hemoglobin stable, ammonia down repeat labs tomorrow likely discharge tomorrow if stable Keep GI appointment for UC outpatient No intervention indicated at this time Supervisory-Addendum Brief Verification & Attestation Participated in pt care: history, MDM, physical Personally performed: exam, history, MDM, supervision of care Care discussed with: Medical Student Procedures: n/a Results interpretation: Verified all documentation Verification and Attestation of Medical Student E/M Service A medical student performed and documented this service in my presence. I reviewed and verified all information documented by the medical student and made modifications to such information, when appropriate. I personally performed the physical exam and medical decision making. Bernice Zepeda, Jun 24, 2020,14:31 ADELA HDEZ MED STUDENT Jun 24, 2020 08:00 BERNICE ZEPEDA DO Jun 25, 2020 14:32
[2020-06-24] MEDS: SPIRONOLACTONE 25 MG (ALDACTONE) TAB PO SCH (08:28)
[2020-06-24] MEDS: OMEPRAZOLE 40 MG PO SCH (08:29)
[2020-06-24] MEDS: MAGNESIUM OXIDE (MAG-OX)400 MG TAB PO SCH ×2 (08:30→20:01)
[2020-06-24] MEDS: RIFAXIMIN 550 MG TABLET (XIFAXAN) PO SCH ×2 (08:31→20:00)
[2020-06-24] MEDS: amLODIPine 5 MG (NORVASC) TAB PO SCH (08:33)
[2020-06-24] MEDS: BISOPROLOL 10 MG PO SCH (08:34)
[2020-06-24] MEDS: VENLAFAXINE 50 MG (EFFEXOR) TABLET PO SCH (08:35)
[2020-06-24] MEDS: LACTULOSE SYRUP 10GM/15ML (ENULOSE) 30ML UDC PO SCH ×4 (08:36→20:03)
--- NOTE | 2020-06-24 11:21 | Progress Note - Hospitalist ---
ROGER NICHOLS,[facility] 06/24/20 1121: Subjective HPI/CC On Admission Date Seen by Provider: Jun 24, 2020 Time Seen by Provider: 09:30 CC: Confusion with rectal bleeding HPI: This is a clinic pt of mine with a hx of cirrhosis with ulcerative colitis who presents to the ER with abdominal pain, rectal bleeding, and confusion. Pt was found to have an ammonia level of 127. Dr. Zepeda will be consulted for rectal bleeding. Pt overall is doing a little better, his is at the bedside, and I have restarted all of his home medications in addition to multiple doses of lactulose to clear ammonia level. Subjective/Events-last exam Feels good this morning. States that his abdominal pain is gone and he has good appetite but is continuing to have bloody stools. Denies fever/chills/CP/SOB. Review of Systems General: No Chills; Appetite Pulmonary: No Dyspnea Cardiovascular: No: Chest Pain Gastrointestinal: Hematochezia; No: Nausea, Vomiting, Abdominal Pain Genitourinary: No Dysuria Objective Exam Vital Signs Vital Signs Date Time Temp Pulse Resp B/P (MAP) Pulse Ox O2 Delivery O2 Flow Rate FiO2 06/24/20 08:00 36.8 78 22 124/59 (80) 96 Room Air Capillary Refill : Less Than 3 Seconds General Appearance: No Apparent Distress, WD/WN Respiratory: Chest Non Tender, Lungs Clear, Normal Breath Sounds Cardiovascular: Regular Rate, Rhythm, No Edema Gastrointestinal: Non Tender Rectal: Deferred Extremity: Normal Inspection, Non Tender, No Pedal Edema Neurologic/Psychiatric: Alert Results/Procedures Lab Laboratory Tests 06/24/20 04:58 Patient resulted labs reviewed. Assessment/Plan Assessment and Plan Assess & Plan/Chief Complaint 1. UC Flare -hydrocortisone injection in ED -general surgery following -Prednisone taper -sulfasalazine 2. Hepatic encephalopathy with hyperammonemia -Lactulose -Rifaximin 3. Anemia -monitor with CBC -Venofer tomorrow 4. H/o DVT -holding Eliquis 5. Abd/Back Pain -APAP -Tramadol 6. HTN -Amlodipine -Spironolactone IVONNE BARRIGA DO 06/25/20 0456: Subjective Subjective/Events-last exam Pt much improved Less confused Ammonia level 59 Hgb 8.6 IV iron required Rectal bleeding still continues Prednisone just started yesterday Stopped Eliquis so he has been off that for the past 24hrs so will allow that to dissipate and will monitor rectal bleeding for tomorrow Review of Systems General: Fatigue Gastrointestinal: Melena Objective Exam General Appearance: No Apparent Distress, WD/WN, Chronically ill, Obese Respiratory: Chest Non Tender, Lungs Clear, Normal Breath Sounds, No Accessory Muscle Use, No Respiratory Distress Cardiovascular: Regular Rate, Rhythm, No Edema, No Gallop, No JVD, No Murmur, Normal Peripheral Pulses Neurologic/Psychiatric: Alert, Oriented x3, No Motor/Sensory Deficits, Normal Mood/Affect Assessment/Plan Assessment and Plan Assess & Plan/Chief Complaint Much improved status Rectal bleeding monitoring DC Eliquis Supervisory-Addendum Brief Verification & Attestation Participated in pt care: history, MDM, physical Personally performed: exam, history, MDM, supervision of care Care discussed with: Medical Student Procedures: n/a Results interpretation: Verified all documentation Verification and Attestation of Medical Student E/M Service A medical student performed and documented this service in my presence. I reviewed and verified all information documented by the medical student and made modifications to such information, when appropriate. I personally performed the physical exam and medical decision making. Ivonne Barriga, Jun 25, 2020,04:55 ROGER NICHOLS,MED STUDEN Jun 24, 2020 11:21 IVONNE BARRIGA DO Jun 25, 2020 04:56
[2020-06-24 12:00] VITALS: BP 117/59
[2020-06-24] MEDS: FOLIC ACID 1 MG TAB PO SCH (12:08)
[2020-06-24] MEDS: KCL 10 MEQ TAB (MICRO K) PO SCH (12:09)
[2020-06-24 16:13] VITALS: BP 121/64
[2020-06-24 19:50] VITALS: BP 126/60
[2020-06-24] MEDS: sulfaSALAzine 500 MG (AZULFIDINE) TAB PO SCH (20:00)
[2020-06-25] VITALS: BP 131/69
[2020-06-25 04:00] VITALS: BP 119/66
[2020-06-25 05:36] LABS: BASOPHILS # (AUTO) 0.1 10^3/uL (0.0-0.1); BASOPHILS % (AUTO) 1 % (0-10); EOSINOPHILS # (AUTO) 0.1 10^3/uL (0.0-0.3); EOSINOPHILS % (AUTO) 2 % (0-10); HEMATOCRIT 27 % (40-54); HEMOGLOBIN 8.5 g/dL (13.3-17.7); LYMPHOCYTES # (AUTO) 1.2 10^3/uL (1.0-4.0); LYMPHOCYTES % (AUTO) 17 % (12-44); MEAN CORPUSCULAR HEMOGLOBIN 27 pg (25-34); MEAN CORPUSCULAR HGB CONC 31 g/dL (32-36); MEAN CORPUSCULAR VOLUME 84 fL (80-99); MEAN PLATELET VOLUME 10.5 fL (9.0-12.2); MONOCYTES # (AUTO) 0.6 10^3/uL (0.0-1.0); MONOCYTES % (AUTO) 8 % (0-12); NEUTROPHILS # (AUTO) 5.1 10^3/uL (1.8-7.8); NEUTROPHILS % (AUTO) 70 % (42-75); PLATELET COUNT 164 10^3/uL (130-400); WHITE BLOOD COUNT 7.2 10^3/uL (4.3-11.0)
[2020-06-25 05:58] LABS: ALBUMIN 2.6 GM/DL (3.2-4.5); CHLORIDE 108 MMOL/L (98-107); SODIUM 137 MMOL/L (135-145)
[2020-06-25 05:59] LABS: AMMONIA 74 UMOL/L (11-32); CALCIUM 7.6 MG/DL (8.5-10.1)
[2020-06-25 06:00] LABS: GLUCOSE 109 MG/DL (70-105)
[2020-06-25 06:01] LABS: TOTAL PROTEIN 5.5 GM/DL (6.4-8.2)
[2020-06-25 06:02] LABS: CARBON DIOXIDE 21 MMOL/L (21-32)
[2020-06-25 06:03] LABS: BILIRUBIN,TOTAL 0.8 MG/DL (0.1-1.0)
[2020-06-25 06:04] LABS: ALKALINE PHOSPHATASE 235 U/L (40-136); CREATININE SERUM 0.77 MG/DL (0.60-1.30); GFR ESTIMATED > 60; INR 1.2 (0.8-1.4); PROTHROMBIN TIME PATIENT 15.5 SEC (12.2-14.7)
[2020-06-25 06:05] LABS: BUN/CREATININE RATIO 10
[2020-06-25 06:07] LABS: ALANINE AMINOTRANSFERASE 19 U/L (0-55)
[2020-06-25] MEDS: predniSONE 20 MG TAB PO SCH (06:17)
[2020-06-25 07:12] VITALS: BP 120/68
--- NOTE | 2020-06-25 07:47 | Progress Note - Surgery ---
ADELA HDEZ MED STUDENT 06/25/20 0747: Subjective Date Seen by a Provider: Jun 25, 2020 Time Seen by a Provider: 07:30 Subjective/Events-last exam Patient states he feels well today, no abdominal pain and is mentating well. States no BM since yesterday with moderate bright red blood in his stool, currently passing gas. No other complaints at this time, eating/sleeping/ambulating well. Hgb 8.5 from 8.6 yesterday, ALP 235 from 254 yesterday, Ammonia elevated to 74 from 54 yesterday. Patient denies Abdominal pain, diarrhea, CP, tachycardia, SOB, wheezing, nausea, vomiting, sweats, pain in extremities, headache, dizziness, lightheadedness. Per , patient has GI appointment with Dr. Justice scheduled at the end of the month, trying to move it up. Objective Exam Vital Signs Date Time Temp Pulse Resp B/P (MAP) Pulse Ox O2 Delivery O2 Flow Rate FiO2 06/25/20 04:00 36.1 68 18 119/66 (83) 98 Room Air 06/25/20 00:00 36.7 70 18 131/69 (89) 97 Room Air 06/24/20 20:15 Room Air 06/24/20 19:50 36.8 71 18 126/60 (82) 98 Room Air 06/24/20 16:13 36.5 74 18 121/64 (83) 96 Room Air 06/24/20 12:00 36.5 70 18 117/59 (78) 96 Room Air 06/24/20 08:00 36.8 78 22 124/59 (80) 96 Room Air 06/24/20 08:00 Room Air I & O 06/25/20 07:00 Intake Total 2480 ml Balance 2480 ml Capillary Refill : Less Than 3 Seconds General Appearance: No Apparent Distress, WD/WN, Chronically ill, Obese HEENT: PERRL/EOMI; No Photophobia Neck: Full Range of Motion, Normal Inspection, Non Tender Respiratory: Chest Non Tender, Lungs Clear, Normal Breath Sounds, No Accessory Muscle Use, No Respiratory Distress Cardiovascular: Regular Rate, Rhythm, No Murmur, Normal Peripheral Pulses Peripheral Pulses: 2+ Carotid (R), 2+ Carotid (L), 2+ Dorsalis Pedis (R), 2+ Left Dors-Pedis (L), 2+ Radial Pulses (R), 2+ Radial Pulses (L) Gastrointestinal: normal bowel sounds, non tender; No soft, No guarding, No rebound; other (rigid, stated as normal for his flareups) Extremity: Normal Capillary Refill, Normal Inspection, Non Tender, No Pedal Edema, Pedal Edema (pitting, 2+, stated as his baseline) Neurologic/Psychiatric: Alert, Oriented x3, Normal Mood/Affect; No Aphasia, No Depressed Affect Skin: Normal Color, Warm/Dry Lymphatic: No Adenopathy Results Lab Laboratory Tests 06/25/20 05:19: White Blood Count 7.2, Red Blood Count 3.21L, Hemoglobin 8.5L, Hematocrit 27L, Mean Corpuscular Volume 84, Mean Corpuscular Hemoglobin 27, Mean Corpuscular Hemoglobin Concent 31L, Red Cell Distribution Width 14.9H, Platelet Count 164, Mean Platelet Volume 10.5, Immature Granulocyte % (Auto) 2, Neutrophils (%) (Auto) 70, Lymphocytes (%) (Auto) 17, Monocytes (%) (Auto) 8, Eosinophils (%) (Auto) 2, Basophils (%) (Auto) 1, Neutrophils # (Auto) 5.1, Lymphocytes # (Auto) 1.2, Monocytes # (Auto) 0.6, Eosinophils # (Auto) 0.1, Basophils # (Auto) 0.1, Immature Granulocyte # (Auto) 0.1, Prothrombin Time 15.5H, INR Comment 1.2, Sodium Level 137, Potassium Level 4.0, Chloride Level 108H, Carbon Dioxide Level 21, Anion Gap 8, Blood Urea Nitrogen 8, Creatinine 0.77, Estimat Glomerular Filtration Rate > 60, BUN/Creatinine Ratio 10, Glucose Level 109H, Calcium Level 7.6L, Corrected Calcium 8.7, Total Bilirubin 0.8, Aspartate Amino Transf (AST/SGOT) 45H, Alanine Aminotransferase (ALT/SGPT) 19, Alkaline Phosphatase 235H, Ammonia 74H, Total Protein 5.5L, Albumin 2.6L Assessment/Plan Assessment/Plan Assessment/Plan UC flare Hepatic encephalopathy - resolved Cirrhosis Diffuse abdominal pain- none presently Hx of esophageal varicies Hx of DVT normocytic anemia- stable Normal diet Continue Prednisone and Sulfalazine outpatient No intervention indicated at this time f/u outpatient with Dr. Justice Patient will be discharged today BERNICE MOSER DO 06/25/20 1436: Subjective Subjective/Events-last exam Patient feeling well. No abdominal pain. Less blood in stool. Had a good nor mal blood bowel movement. Hgb stable. Does not feel he has any confusion now. Denies n/v fever sweats chills shortness of breath or chest pain. Objective Exam General Appearance: No Apparent Distress, Chronically ill, Obese HEENT: PERRL/EOMI; No Photophobia Neck: Full Range of Motion, Normal Inspection, Non Tender Respiratory: Chest Non Tender, No Accessory Muscle Use, No Respiratory Distress Cardiovascular: Regular Rate, Rhythm, No JVD Gastrointestinal: normal bowel sounds, non tender; No guarding, No rebound Extremity: Normal Capillary Refill, Non Tender Neurologic/Psychiatric: Alert, Oriented x3 Skin: Normal Color, Warm/Dry Lymphatic: No Adenopathy Assessment/Plan Assessment/Plan Assessment/Plan UC flare with blood in stool Hepatic encephalopathy - resolved Abdominal pain resolved. Cirrhosis Diffuse abdominal pain- none presently Hx of esophageal varicies Hx of DVT normocytic anemia- stable Normal diet Continue Prednisone and Sulfalazine outpatient No intervention indicated at this time f/u outpatient with Dr. Tran Patient will be discharged today Supervisory-Addendum Brief Verification & Attestation Participated in pt care: history, MDM, physical Personally performed: exam, history, MDM, supervision of care Care discussed with: Medical Student Procedures: n/a Results interpretation: Verified all documentation Verification and Attestation of Medical Student E/M Service A medical student performed and documented this service in my presence. I reviewed and verified all information documented by the medical student and made modifications to such information, when appropriate. I personally performed the physical exam and medical decision making. Bernice Moser, Jun 25, 2020,14:36 ADELA HDEZ MED STUDENT Jun 25, 2020 07:47 BERNICE MOSER DO Jun 25, 2020 14:36
[2020-06-25] MEDS ORDERED: ACETAMINOPHEN 325 MG TABLET PO PRN (08:30)
[2020-06-25] MEDS: MAGNESIUM OXIDE (MAG-OX)400 MG TAB PO SCH (08:39)
[2020-06-25] MEDS: amLODIPine 5 MG (NORVASC) TAB PO SCH (08:40)
[2020-06-25] MEDS: OMEPRAZOLE 40 MG PO SCH (08:40)
[2020-06-25] MEDS: SPIRONOLACTONE 25 MG (ALDACTONE) TAB PO SCH (08:41)
[2020-06-25] MEDS: BISOPROLOL 10 MG PO SCH (08:42)
[2020-06-25] MEDS: RIFAXIMIN 550 MG TABLET (XIFAXAN) PO SCH (08:43)
[2020-06-25] MEDS: VENLAFAXINE 50 MG (EFFEXOR) TABLET PO SCH (08:50)
[2020-06-25] MEDS: LACTULOSE SYRUP 10GM/15ML (ENULOSE) 30ML UDC PO SCH (08:50)
[2020-06-25] MEDS ORDERED: IRON SUCROSE 200 MG/10 ML (VENOFER) VIAL IV SCH (09:00)
[2020-06-25] MEDS ORDERED: PRED10TA22 PO (10:32)
[2020-06-25] MEDS ORDERED: IRON100V2 IV (10:32)
[2020-06-25] MEDS ORDERED: LACT10SO64 PO (10:32)
--- NOTE | 2020-06-25 10:32 | Discharge Summary ---
Diagnosis/Chief Complaint Date of Admission Jun 22, 2020 at 05:00 Date of Discharge Discharge Date: Jun 25, 2020 Discharge Diagnosis Hepatic encephalopathy GIB UC flare h/o DVT Anemia Discharge Summary Discharge Physical Examination Allergies: Coded Allergies: No Known Drug Allergies (Verified , 02/20/19) Vitals & I&Os Vital Signs Date Time Temp Pulse Resp B/P (MAP) Pulse Ox O2 Delivery O2 Flow Rate FiO2 06/25/20 11:10 36.6 69 18 120/68 96 Room Air General Appearance: Alert, Oriented X3, Cooperative Respiratory: Clear to Auscultation Cardiovascular: Regular Rate Neuro: Normal Gait, Normal Speech, Strength at 5/5 X4 Ext Psych/Mental Status: Mental Status NL Hospital Course Was the Problem List Reviewed?: Yes Lengthy observation due to hepatic encephalopathy due to UC flare with GIB causing ammonia to increase requiring Lactulose and close monitoring. Dr Zepeda consulted and he placed him on Prednisone and after speaking to Dr Sen Lr DC Eliquis since 1 year since DVT and GI bleeding from UC placed him at recurrent risk for HE so patient did requiring iron infusions while inpatient and hgb stable at DC and he was improved at time of DC. Labs (last 24 hrs) Laboratory Tests 06/22/20 03:45: White Blood Count 4.4, Red Blood Count 3.83L, Hemoglobin 10.3L, Hematocrit 32L, Mean Corpuscular Volume 84, Mean Corpuscular Hemoglobin 27, Mean Corpuscular Hemoglobin Concent 32, Red Cell Distribution Width 15.1H, Platelet Count 176, Mean Platelet Volume 9.2, Immature Granulocyte % (Auto) 1, Neutrophils (%) (Auto) 72, Lymphocytes (%) (Auto) 14, Monocytes (%) (Auto) 11, Eosinophils (%) (Auto) 2, Basophils (%) (Auto) 1, Neutrophils # (Auto) 3.2, Lymphocytes # (Auto) 0.6L, Monocytes # (Auto) 0.5, Eosinophils # (Auto) 0.1, Basophils # (Auto) 0.0, Immature Granulocyte # (Auto) 0.0, Prothrombin Time 17.6H, INR Comment 1.4, Activated Partial Thromboplast Time 52H, Sodium Level 136, Potassium Level 4.2, Chloride Level 105, Carbon Dioxide Level 21, Anion Gap 10, Blood Urea Nitrogen 11, Creatinine 0.90, Estimat Glomerular Filtration Rate > 60, BUN/Creatinine Ratio 12, Glucose Level 93, Calcium Level 8.3L, Corrected Calcium 9.0, Iron Level 39, Total Bilirubin 1.5H, Aspartate Amino Transf (AST/SGOT) 49H, Alanine Aminotransferase (ALT/SGPT) 21, Alkaline Phosphatase 321H, Ammonia 127H, Total Protein 6.5, Albumin 3.1L 06/23/20 05:34: White Blood Count 3.8L, Red Blood Count 3.19L, Hemoglobin 8.6L, Hematocrit 27L, Mean Corpuscular Volume 84, Mean Corpuscular Hemoglobin 27, Mean Corpuscular Hemoglobin Concent 32, Red Cell Distribution Width 15.0H, Platelet Count 159, Mean Platelet Volume 9.7, Immature Granulocyte % (Auto) 1, Neutrophils (%) (Auto) 67, Lymphocytes (%) (Auto) 23, Monocytes (%) (Auto) 6, Eosinophils (%) (Auto) 3, Basophils (%) (Auto) 1, Neutrophils # (Auto) 2.5, Lymphocytes # (Auto) 0.9L, Monocytes # (Auto) 0.2, Eosinophils # (Auto) 0.1, Basophils # (Auto) 0.0, Immature Granulocyte # (Auto) 0.0, Sodium Level 135, Potassium Level 3.7, Chloride Level 107, Carbon Dioxide Level 22, Anion Gap 6, Blood Urea Nitrogen 10, Creatinine 0.78, Estimat Glomerular Filtration Rate > 60, BUN/Creatinine Ratio 13, Glucose Level 103, Calcium Level 7.8L, Corrected Calcium 8.8, Total Bilirubin 1.2H, Aspartate Amino Transf (AST/SGOT) 45H, Alanine Aminotransferase (ALT/SGPT) 17, Alkaline Phosphatase 262H, Ammonia 75H, Total Protein 5.4L, Albumin 2.7L 06/24/20 04:58: White Blood Count 5.7, Red Blood Count 3.16L, Hemoglobin 8.6L, Hematocrit 26L, Mean Corpuscular Volume 83, Mean Corpuscular Hemoglobin 27, Mean Corpuscular Hemoglobin Concent 33, Red Cell Distribution Width 14.6H, Platelet Count 155, Mean Platelet Volume 10.2, Immature Granulocyte % (Auto) 1, Neutrophils (%) (Auto) 79H, Lymphocytes (%) (Auto) 10L, Monocytes (%) (Auto) 9, Eosinophils (%) (Auto) 1, Basophils (%) (Auto) 1, Neutrophils # (Auto) 4.5, Lymphocytes # (Auto) 0.6L, Monocytes # (Auto) 0.5, Eosinophils # (Auto) 0.0, Basophils # (Auto) 0.0, Immature Granulocyte # (Auto) 0.0, Prothrombin Time 16.4H, INR Comment 1.3, Sodium Level 137, Potassium Level 3.9, Chloride Level 107, Carbon Dioxide Level 23, Anion Gap 7, Blood Urea Nitrogen 11, Creatinine 0.72, Estimat Glomerular Filtration Rate > 60, BUN/Creatinine Ratio 15, Glucose Level 116H, Calcium Level 7.8L, Corrected Calcium 8.8, Total Bilirubin 1.0, Aspartate Amino Transf (AST/SGOT) 40H, Alanine Aminotransferase (ALT/SGPT) 18, Alkaline Phosphatase 254H, Ammonia 59H, Total Protein 5.6L, Albumin 2.7L 06/25/20 05:19: White Blood Count 7.2, Red Blood Count 3.21L, Hemoglobin 8.5L, Hematocrit 27L, Mean Corpuscular Volume 84, Mean Corpuscular Hemoglobin 27, Mean Corpuscular Hemoglobin Concent 31L, Red Cell Distribution Width 14.9H, Platelet Count 164, Mean Platelet Volume 10.5, Immature Granulocyte % (Auto) 2, Neutrophils (%) (Auto) 70, Lymphocytes (%) (Auto) 17, Monocytes (%) (Auto) 8, Eosinophils (%) (Auto) 2, Basophils (%) (Auto) 1, Neutrophils # (Auto) 5.1, Lymphocytes # (Auto) 1.2, Monocytes # (Auto) 0.6, Eosinophils # (Auto) 0.1, Basophils # (Auto) 0.1, Immature Granulocyte # (Auto) 0.1, Prothrombin Time 15.5H, INR Comment 1.2, Sodium Level 137, Potassium Level 4.0, Chloride Level 108H, Carbon Dioxide Level 21, Anion Gap 8, Blood Urea Nitrogen 8, Creatinine 0.77, Estimat Glomerular Filtration Rate > 60, BUN/Creatinine Ratio 10, Glucose Level 109H, Calcium Level 7.6L, Corrected Calcium 8.7, Total Bilirubin 0.8, Aspartate Amino Transf (AST/SGOT) 45H, Alanine Aminotransferase (ALT/SGPT) 19, Alkaline Phosphatase 235H, Ammonia 74H, Total Protein 5.5L, Albumin 2.6L Pending Labs Laboratory Tests 06/22/20 03:45: White Blood Count 4.4, Red Blood Count 3.83, Hemoglobin 10.3, Hematocrit 32, Mean Corpuscular Volume 84, Mean Corpuscular Hemoglobin 27, Mean Corpuscular Hemoglobin Concent 32, Red Cell Distribution Width 15.1, Platelet Count 176, Mean Platelet Volume 9.2, Immature Granulocyte % (Auto) 1, Neutrophils (%) (Auto ) 72, Lymphocytes (%) (Auto) 14, Monocytes (%) (Auto) 11, Eosinophils (%) (Auto) 2, Basophils (%) (Auto) 1, Neutrophils # (Auto) 3.2, Lymphocytes # (Auto) 0.6, Monocytes # (Auto) 0.5, Eosinophils # (Auto) 0.1, Basophils # (Auto) 0.0, Immature Granulocyte # (Auto) 0.0, Prothrombin Time 17.6, INR Comment 1.4, Activated Partial Thromboplast Time 52, Sodium Level 136, Potassium Level 4.2, Chloride Level 105, Carbon Dioxide Level 21, Anion Gap 10, Blood Urea Nitrogen 11, Creatinine 0.90, Estimat Glomerular Filtration Rate > 60, BUN/Creatinine Ratio 12, Glucose Level 93, Calcium Level 8.3, Corrected Calcium 9.0, Iron Level 39, Total Bilirubin 1.5, Aspartate Amino Transf (AST/SGOT) 49, Alanine Aminotransferase (ALT/SGPT) 21, Alkaline Phosphatase 321, Ammonia 127, Total Protein 6.5, Albumin 3.1 06/23/20 05:34: White Blood Count 3.8, Red Blood Count 3.19, Hemoglobin 8.6, Hematocrit 27, Mean Corpuscular Volume 84, Mean Corpuscular Hemoglobin 27, Mean Corpuscular Hemoglobin Concent 32, Red Cell Distribution Width 15.0, Platelet Count 159, Mean Platelet Volume 9.7, Immature Granulocyte % (Auto) 1, Neutrophils (%) (Auto) 67, Lymphocytes (%) (Auto) 23, Monocytes (%) (Auto) 6, Eosinophils (%) (Auto) 3, Basophils (%) (Auto) 1, Neutrophils # (Auto) 2.5, Lymphocytes # (Auto) 0.9, Monocytes # (Auto) 0.2, Eosinophils # (Auto) 0.1, Basophils # (Auto) 0.0, Immature Granulocyte # (Auto) 0.0, Sodium Level 135, Potassium Level 3.7, Chloride Level 107, Carbon Dioxide Level 22, Anion Gap 6, Blood Urea Nitrogen 10, Creatinine 0.78, Estimat Glomerular Filtration Rate > 60, BUN/Creatinine Ratio 13, Glucose Level 103, Calcium Level 7.8, Corrected Calcium 8.8, Total Bilirubin 1.2, Aspartate Amino Transf (AST/SGOT) 45, Alanine Aminotransferase (ALT/SGPT) 17, Alkaline Phosphatase 262, Ammonia 75, Total Protein 5.4, Albumin 2.7 06/24/20 04:58: White Blood Count 5.7, Red Blood Count 3.16, Hemoglobin 8.6, Hematocrit 26, Mean Corpuscular Volume 83, Mean Corpuscular Hemoglobin 27, Mean Corpuscular Hemoglobin Concent 33, Red Cell Distribution Width 14.6, Platelet Count 155, Mean Platelet Volume 10.2, Immature Granulocyte % (Auto) 1, Neutrophils (%) (Auto) 79, Lymphocytes (%) (Auto) 10, Monocytes (%) (Auto) 9, Eosinophils (%) (Auto) 1, Basophils (%) (Auto) 1, Neutrophils # (Auto) 4.5, Lymphocytes # (Auto) 0.6, Monocytes # (Auto) 0.5, Eosinophils # (Auto) 0.0, Basophils # (Auto) 0.0, Immature Granulocyte # (Auto) 0.0, Prothrombin Time 16.4, INR Comment 1.3, Sodium Level 137, Potassium Level 3.9, Chloride Level 107, Carbon Dioxide Level 23, Anion Gap 7, Blood Urea Nitrogen 11, Creatinine 0.72, Estimat Glomerular Filtration Rate > 60, BUN/Creatinine Ratio 15, Glucose Level 116, Calcium Level 7.8, Corrected Calcium 8.8, Total Bilirubin 1.0, Aspartate Amino Transf (AST/ SGOT) 40, Alanine Aminotransferase (ALT/SGPT) 18, Alkaline Phosphatase 254, Ammonia 59, Total Protein 5.6, Albumin 2.7 06/25/20 05:19: White Blood Count 7.2, Red Blood Count 3.21, Hemoglobin 8.5, Hematocrit 27, Mean Corpuscular Volume 84, Mean Corpuscular Hemoglobin 27, Mean Corpuscular Hemoglobin Concent 31, Red Cell Distribution Width 14.9, Platelet Count 164, Mean Platelet Volume 10.5, Immature Granulocyte % (Auto) 2, Neutrophils (%) (Auto) 70, Lymphocytes (%) (Auto) 17, Monocytes (%) (Auto) 8, Eosinophils (%) (Auto) 2, Basophils (%) (Auto) 1, Neutrophils # (Auto) 5.1, Lymphocytes # (Auto) 1.2, Monocytes # (Auto) 0.6, Eosinophils # (Auto) 0.1, Basophils # (Auto) 0.1, Immature Granulocyte # (Auto) 0.1, Prothrombin Time 15.5, INR Comment 1.2, Sodium Level 137, Potassium Level 4.0, Chloride Level 108, Carbon Dioxide Level 21, Anion Gap 8, Blood Urea Nitrogen 8, Creatinine 0.77, Estimat Glomerular Filtration Rate > 60, BUN/Creatinine Ratio 10, Glucose Level 109, Calcium Level 7.6, Corrected Calcium 8.7, Total Bilirubin 0.8, Aspartate Amino Transf (AST/SGOT) 45, Alanine Aminotransferase (ALT/SGPT) 19, Alkaline Phosphatase 235, Ammonia 74, Total Protein 5.5, Albumin 2.6 Discharge Home Medications: Active Scripts Active Prednisone 10 Mg Tab.ds.pk 50 Mg PO DAILY Take 5 pills once daily until changed by doctor Venofer (Iron Sucrose Complex) 200 Mg/10 Ml Vial 200 Mg IV Q48H@09 Please infuse 200mg IV on 06/29/20, 07/01/20, and 07/03/20 Constulose (Lactulose) 10 Gm/15 Ml Solution 15 Ml PO BID 30 Days BID scheduled Reported Methotrexate (Methotrexate Sodium) 2.5 Mg Tablet 20 Mg PO SUN TAKES 8 (2.5MG) TABS Folic Acid 1 Mg Tablet 1 Mg PO 1200 Vitamin D2 (Ergocalciferol (Vitamin D2)) 1,250 Mcg Capsule 1,250 Mcg PO SAT Vitamin A 8,000 Unit Capsule 8,000 Unit PO 1200 Venlafaxine HCl 25 Mg Tablet 25 Mg PO DAILY Citalopram HBr (Citalopram Hydrobromide) 40 Mg Tablet 40 Mg PO DAILY Potassium Chloride 10 Meq Capsule.er 10 Meq PO 1200 Sulfasalazine 500 Mg Tablet 3,000 Mg PO HS TAKES 6 (500MG) TABS LAST FILLED 03-18-2020 #126/21 DAY SUPPLY Bisoprolol Fumarate 10 Mg Tablet 10 Mg PO DAILY Omeprazole 40 Mg Capsule.dr 40 Mg PO DAILY Xifaxan (Rifaximin) 550 Mg Tablet 550 Mg PO BID LAST FILLED 02-28-2020 #180/90 DAY SUPPLY Amlodipine Besylate 5 Mg Tablet 5 Mg PO DAILY Magnesium (Magnesium Oxide) 400 Mg Tablet 400 Mg PO BID Spironolactone 25 Mg Tablet 50 Mg PO DAILY TAKES 2 (25MG) TABS Instructions to patient/family Please see electronic discharge instructions given to patient. Diagnosis/Problems Diagnosis/Problems (1) Hepatic encephalopathy Status: Acute (2) Abdominal pain Status: Acute Qualifiers: Qualified Codes: R10.84 - Generalized abdominal pain (3) Ulcerative colitis Status: Chronic Qualifiers: Qualified Codes: K51.919 - Ulcerative colitis, unspecified with unspecified complications (4) Blood per rectum (5) Essential (primary) hypertension Status: Chronic DIANA BARRIGA DO Jun 25, 2020 10:32
[2020-06-25 11:10] VITALS: BP 120/68
--- NOTE | 2020-06-25 11:28 | Progress Note ---
ROGER NICHOLS,[facility] 06/25/20 1128: Progress Note HOSPITAL COURSE 55 yo man admitted to the floor from ED at 0330 for UC flare with bloody BMs 3- 4x daily for a few weeks and increased confusion 2/2 hepatic encephalopathy with an ammonia level of 127. Lactulose and hydrocortisone injection were given in ED, LR was started, and labs revealed AST/ALT/ALP 49 H/21/321 H with anemia (Hb 10.3, Fe 39) and coagulopathy with PT/INR/PTT 17.6 H/1.4/52 H on eliquis. 06/23 home medications for UC - sulfasalazine, rifxamin, prednisone - were resumed and ammonia level had decreased to 75 and anemia had worsened to Hb 8.6 so venofer infusion was started, while tramadol was given for abdominal pain. By 06/24 his abdominal pain had resolved but given continued anemia with Hb at 8.6 it was decided to hold eliquis and continue iron infusion every other day through the following week. 06/25 showed stable Hb at 8.5 and an increase in ammonia at 74 but significantly lower than at presentation so he was discharged to home with plans to follow up with Dr. Casas in clinic, continue to hold eliquis, and receive iron infusions outpatient. IVONNE CASAS DO 06/26/20 0516: Supervisory-Addendum Brief Verification & Attestation Participated in pt care: history, MDM, physical Personally performed: exam, history, MDM, supervision of care Care discussed with: Medical Student Procedures: n/a Results interpretation: Verified all documentation Verification and Attestation of Medical Student E/M Service A medical student performed and documented this service in my presence. I reviewed and verified all information documented by the medical student and made modifications to such information, when appropriate. I personally performed the physical exam and medical decision making. Ivonne Casas, Jun 26, 2020,05:16 ROGER NICHOLS,[facility] Jun 25, 2020 11:28 IVONNE CASAS DO Jun 26, 2020 05:16
[2020-06-27] MEDS ORDERED: VITAMIN D2 1.25 MG (50,000 UNITS) CAP PO SCH (09:00)
== END 2020-06-25 10:27 | disposition home or self-care (01) ==
LOC: EDUNIT# 03:27 → ER 03:30 → 4TH 05:00 → UNDOADMOB 05:00 → 4TH 06:25 → UNDODISOB 06-25 11:30
PROVIDERS: ADMIT Internal Medicine; ATTEND Internal Medicine
DX: K72.90 Hepatic failure, unspecified without coma (principal); K92.2 Gastrointestinal hemorrhage, unspecified; D64.9 Anemia, unspecified; K51.919 Ulcerative colitis, unspecified with unspecified complications; I10 Essential (primary) hypertension; E78.00 Pure hypercholesterolemia, unspecified; G47.30 Sleep apnea, unspecified; F41.9 Anxiety disorder, unspecified; G89.29 Other chronic pain; Z79.899 Other long term (current) drug therapy; Z79.01 Long term (current) use of anticoagulants; Z87.19 Personal history of other diseases of the digestive system; Z87.891 Personal history of nicotine dependence; Z86.718 Personal history of other venous thrombosis and embolism; Z83.3 Family history of diabetes mellitus
CPT/HCPCS: 80053 ×4; 82140 ×4; 83540; 85025 ×4; 85610 ×3; 85730; 99284; G0378; 36415

== ENCOUNTER 2020-07-15 12:13 | Outpatient (RCR) | payer MEDICARE, OTHER ==
[2020-07-09 13:53] VITALS: BP 118/64
[2020-07-13 15:00] VITALS: BP 134/64
[2020-07-13] MEDS: IRON SUCROSE 200 MG/10 ML (VENOFER) VIAL IV SCH (15:05)
[~2020-07-15] VITALS: Ht 180.3 cm; Wt 110.3 kg
[2020-07-15 12:10] VITALS: BP 128/77
[~2020-07-15 12:13] MED LIST changes: +ERGO50006 PO; +FOLI1TAB33 PO; +IRON SUCROSE 200 MG/10 ML (VENOFER) VIAL IV ONE; +IRON100V2 IV; +LACT10SO64 PO; +METH2.5T PO
[2020-07-15] MEDS ORDERED: IRON SUCROSE 200 MG/10 ML (VENOFER) VIAL IV ONE (12:45)
== END 2020-10-07 | disposition home or self-care (01) ==
LOC: SDC 12:13
PROVIDERS: ATTEND Internal Medicine
DX: D50.9 Iron deficiency anemia, unspecified (principal)
CPT/HCPCS: 96365

== ENCOUNTER → 2020-07-29 | Outpatient (CLI) | payer MEDICARE ==
[~2020-07-29] MED LIST changes: -IRON SUCROSE 200 MG/10 ML (VENOFER) VIAL IV ONE
--- NOTE | 2020-07-29 17:12 | Diagnostic Imaging Report ---
INDICATION: Cirrhosis of the liver Ultrasound of the abdomen obtained, comparison made to 09/03/2019. The liver shows a diffuse coarse echo pattern compatible with cirrhosis, with no discrete focal lesion. Portal vein is patent but shows hepatofugal flow. Gallbladder appears unremarkable with no stones or wall thickening. Common duct was not well seen. Pancreas is obscured by overlying gas. Spleen is mildly enlarged measuring 15.0 cm in greatest diameter. The aorta and IVC are also obscured by overlying gas. The right kidney are 12.0 x 6.7 x 5.9 cm and appear normal. Left kidney measured 14.2 x 6.1 x 5.7 cm and contains a cyst measuring 2.3 x 2.1 cm. There is no ascites. IMPRESSION: Findings compatible with cirrhosis without identifiable focal liver lesion. Portal vein is patent but shows abnormal hepatofugal flow. There is no ascites. There is a left renal cyst. There is mild splenomegaly. Dictated by: Dictated on workstation # [id number]
== END ==
LOC: RAD 08:45
PROVIDERS: ATTEND Internal Medicine
DX: K74.69 Other cirrhosis of liver (principal); N28.1 Cyst of kidney, acquired
CPT/HCPCS: 76700

== ENCOUNTER → 2021-03-03 | Outpatient (CLI) | payer MEDICARE ==
[~2021-03-03] MED LIST changes: -BISO10TA PO; +BISO10TA6 PO; +ERGO1250 PO; -ERGO50006 PO; -MAGN400T8 PO; +MGX400T PO; -OMEP40CA27 PO; +OMEP40CA6 PO; +RT-ALBUTEROL SULF 2.5 MG/3 ML PRE-MIX VIAL INH ONE
== END ==
LOC: RT 12:53
PROVIDERS: ATTEND Internal Medicine
DX: R05.9 Cough, unspecified (principal)
CPT/HCPCS: 94060; 94640; 94726; 94729

== ENCOUNTER 2021-03-30 14:25 | Observation (INO) | payer MEDICARE ==
[~2021-03-30] VITALS: Ht 180 cm; Wt 118.0 kg
[~2021-03-30 14:25] MED LIST changes: -CITA40TA11 PO; +CITA40TA13 PO; +POTA-160 PO; +POTA-169 PO; -POTA10TA36 PO; +POTA10TA37 PO; -POTA10TA6 PO; -POTA20TA8 PO; -RT-ALBUTEROL SULF 2.5 MG/3 ML PRE-MIX VIAL INH ONE
--- NOTE | 2021-03-30 15:06 | ED Neurological Problem ---
General Stated Complaint: ABNORMAL LEVELS HX LIVER DISEASE Source: patient, family (()) Exam Limitations: no limitations History of Present Illness Date Seen by Provider: Mar 30, 2021 Time Seen by Provider: 14:51 Initial Comments Patient is a 56-year-old male with a history of end-stage liver disease who presents to the emergency department today with his , chief complaint of increased confusion, abnormal behaviors. He sees a restorative coordinator in [place]. His last visit with him was about a month ago. Patient denies any fevers, chills, cough or congestion. No earache or sore throat. No shortness of breath. He does endorse abdominal pain but his and he states that it is chronic. He feels like he has had a little bit more recently than usual. He is not on any chronic narcotic pain medications. He denies any black or bloody stools or urinary complaints. No Covid concerns he was vaccinated in November. Both he and his states that he does not like to take his lactulose and probably has not been taking it as directed. His states that she periodically assesses his confusion by having him write, she states that he was riding very crooked and unevenly, their son came home today to find him standing at the staircase spilling water all over the floor with a blank stare. At presentation the patient is awake alert oriented able to converse normally. Just complains of abdominal pain. All other review of systems reviewed and negative except as stated. Timing/Duration: other (2 days) Severity: mild Associated Symptoms: confusion Allergies and Home Medications Allergies Coded Allergies: No Known Drug Allergies (Verified , 02/20/19) Patient Home Medication List Home Medication List Reviewed: Yes Amlodipine Besylate (Amlodipine Besylate) 5 Mg Tablet, 5 MG PO DAILY, (Reported) Entered as Reported by: ARGENTINA LATHAM on 07/02/18 1639 Bisoprolol Fumarate (Bisoprolol Fumarate) 10 Mg Tablet, 10 MG PO DAILY, (Reported) Entered as Reported by: ARGENTINA LATHAM on 07/02/18 1639 Citalopram Hydrobromide (Citalopram HBr) 40 Mg Tablet, 40 MG PO DAILY, (Reported) Entered as Reported by: ИВАН MCGHEE on 01/23/20 1656 Ergocalciferol (Vitamin D2) (Vitamin D2) 1,250 Mcg Capsule, 1,250 MCG PO SAT, (Reported) Entered as Reported by: ИВАН MCGHEE on 06/22/20 0911 Folic Acid (Folic Acid) 1 Mg Tablet, 1 MG PO 1200, (Reported) Entered as Reported by: ИВАН MCGHEE on 06/22/20 09 Iron Sucrose Complex (Venofer) 200 Mg/10 Ml Vial, 200 MG IV Q48H@09 Prescribed by: DIANA BARRIGA on 06/25/20 1032 Lactulose (Constulose) 10 Gm/15 Ml Solution, 15 ML PO BID Prescribed by: DIANA BARRIGA on 06/25/20 1032 Magnesium Oxide (Magnesium) 400 Mg Tablet, 400 MG PO BID, (Reported) Entered as Reported by: ARGENTINA LATHAM on 07/02/18 163 Methotrexate Sodium (Methotrexate) 2.5 Mg Tablet, 20 MG PO SUN, (Reported) Entered as Reported by: ИВАН MCGHEE on 06/22/20 09 Omeprazole (Omeprazole) 40 Mg Capsule.dr, 40 MG PO DAILY, (Reported) Entered as Reported by: ARGENTINA LATHAM on 07/02/18 163 Potassium Chloride (Potassium Chloride) 10 Meq Capsule.er, 10 MEQ PO 1200, (Reported) Entered as Reported by: ИВАН MCGHEE on 01/23/20 165 Prednisone (Prednisone) 10 Mg Tab.ds.pk, 50 MG PO DAILY Prescribed by: DIANA BARRIGA on 06/25/20 103 Rifaximin (Xifaxan) 550 Mg Tablet, 550 MG PO BID, (Reported) Entered as Reported by: ARGENTINA LATHAM on 07/02/18 163 Spironolactone (Spironolactone) 25 Mg Tablet, 50 MG PO DAILY, (Reported) Entered as Reported by: GERALD GROVE on 05/28/17 1451 Sulfasalazine (Sulfasalazine) 500 Mg Tablet, 3,000 MG PO HS, (Reported) Entered as Reported by: ИВАН MCGHEE on 01/23/20 165 Venlafaxine HCl (Venlafaxine HCl) 25 Mg Tablet, 25 MG PO DAILY, (Reported) Entered as Reported by: ИВАН MCGHEE on 01/23/20 165 Vitamin A (Vitamin A) 8,000 Unit Capsule, 8,000 UNIT PO 1200, (Reported) Entered as Reported by: ИВАН MCGHEE on 01/23/20 8158 Review of Systems Review of Systems Constitutional: see HPI Eyes: No Symptoms Reported Ears, Nose, Mouth, Throat: no symptoms reported Respiratory: no symptoms reported Cardiovascular: no symptoms reported Gastrointestinal: abdominal pain Genitourinary: no symptoms reported Musculoskeletal: no symptoms reported Skin: no symptoms reported Psychiatric/Neurological: Other (confusion) All Other Systems Reviewed Negative Unless Noted: Yes Past Vtulliy-Olieak-Yuoxwf Hx Immunizations Up To Date Tetanus Booster (TDap): Unknown Seasonal Allergies Seasonal Allergies: No Past Medical History Surgeries: Yes Respiratory: No Sleep Apnea Currently Using CPAP: Yes Cardiac: Yes Deep Vein Thrombosis, High Cholesterol, Hypertension Neurological: No Sexually Transmitted Disease: No HIV/AIDS: No Genitourinary: No Gastrointestinal: Yes Colitis, Gastroesophageal Reflux, Gastrointestinal Bleed, Hemorrhoids, Cirrhosis Musculoskeletal: No Chronic Back Pain Endocrine: No HEENT: Yes (GLASSES) Loss of Vision: Bilateral Hearing Impairment: Hard of Hearing Cancer: No Psychosocial: No Anxiety Integumentary: Yes Psoriasis Blood Disorders: No Adverse Reaction/Blood Tranf: No (N/A) Family Medical History Cardiovascular disease 19 FATHER Diabetes mellitus 19 FATHER FH: hypertension 19 MOTHER Myocardial infarction 19 FATHER 19 MOTHER G8 BROTHER No Pertinent Family Hx Physical Exam Vital Signs Vital Signs - First Documented 03/30/21 14:40 Temp 36.6 Pulse 68 Resp 18 B/P (MAP) 140/70 (93) Pulse Ox 91 O2 Delivery Room Air Capillary Refill : Height, Weight, BMI Height: 5'10.00" Weight: 289lbs. 0.0oz. [id number]; 34.81 BMI Method:Stated General Appearance: WD/WN, no apparent distress HEENT: PERRL/EOMI Neck: normal inspection Respiratory: lungs clear, normal breath sounds, no respiratory distress, no accessory muscle use, other (O2 sats laying down 90-91% on RA; no labored breathing or distress of any kind) Cardiovascular: regular rate, rhythm Gastrointestinal: soft, tenderness (mild diffuse tenderness), other (multiple s ubQ nodules felt in the anterior abdominal wall - patient states "my fatty tumors") Extremities: normal range of motion, non-tender, normal inspection, no pedal edema, no calf tenderness Neurologic/Psychiatric: alert, normal mood/affect, oriented x 3 Crainal Nerves: normal hearing, normal speech, PERRL Coordination/Gait: other (no asterixis) Skin: normal color, warm/dry Progress/Results/Core Measures Results/Orders Lab Results Laboratory Tests Test 03/30/21 15:10 Range/Units White Blood Count 5.9 4.3-11.0 10^3/uL Red Blood Count 4.49 4.30-5.52 10^6/uL Hemoglobin 13.0 L 13.3-17.7 g/dL Hematocrit 39 L 40-54 % Mean Corpuscular Volume 87 80-99 fL Mean Corpuscular Hemoglobin 29 25-34 pg Mean Corpuscular Hemoglobin Concent 33 32-36 g/dL Red Cell Distribution Width 14.6 H 10.0-14.5 % Platelet Count 153 130-400 10^3/uL Mean Platelet Volume 10.0 9.0-12.2 fL Immature Granulocyte % (Auto) 1 % Neutrophils (%) (Auto) 78 H 42-75 % Lymphocytes (%) (Auto) 9 L 12-44 % Monocytes (%) (Auto) 10 0-12 % Eosinophils (%) (Auto) 1 0-10 % Basophils (%) (Auto) 1 0-10 % Neutrophils # (Auto) 4.6 1.8-7.8 10^3/uL Lymphocytes # (Auto) 0.5 L 1.0-4.0 10^3/uL Monocytes # (Auto) 0.6 0.0-1.0 10^3/uL Eosinophils # (Auto) 0.1 0.0-0.3 10^3/uL Basophils # (Auto) 0.1 0.0-0.1 10^3/uL Immature Granulocyte # (Auto) 0.1 0.0-0.1 10^3/uL Percent Immature Platelet Fraction 2.2 0.0-7.6 % Sodium Level 136 135-145 MMOL/L Potassium Level 4.0 3.6-5.0 MMOL/L Chloride Level 106 98-107 MMOL/L Carbon Dioxide Level 23 21-32 MMOL/L Anion Gap 7 5-14 MMOL/L Blood Urea Nitrogen 13 7-18 MG/DL Creatinine 0.80 0.60-1.30 MG/DL Estimat Glomerular Filtration Rate 100 BUN/Creatinine Ratio 16 Glucose Level 102 70-105 MG/DL Calcium Level 8.7 8.5-10.1 MG/DL Corrected Calcium 9.5 8.5-10.1 MG/DL Total Bilirubin 1.7 H 0.1-1.0 MG/DL Aspartate Amino Transf (AST/SGOT) 70 H 5-34 U/L Alanine Aminotransferase (ALT/SGPT) 30 0-55 U/L Alkaline Phosphatase 270 H 40-136 U/L Ammonia 110 H 11-32 UMOL/L Total Protein 6.2 L 6.4-8.2 GM/DL Albumin 3.0 L 3.2-4.5 GM/DL My Orders Orders - SHELBY GOTTI MD Ed Iv/Invasive Line Start (03/30/21 15:00) Cbc With Automated Diff (03/30/21 15:00) Comprehensive Metabolic Panel (03/30/21 15:00) Protime With Inr (03/30/21 15:00) Partial Thromboplastin Time (03/30/21 15:00) Ammonia (03/30/21 15:26) Vital Signs/I&O 03/30/21 14:40 Temp 36.6 Pulse 68 Resp 18 B/P (MAP) 140/70 (93) Pulse Ox 91 O2 Delivery Room Air Admisison Planning May Need Admission (Planning): 16:05 Progress Progress Note : Time: 16:05 Progress Note Patient's ammonia is 110. Looks like the last time he was here was earlier in the year around June, ammonia levels run in the 50s to 70s. Rest of his labs are unremarkable. He is still alert, able to converse. Vital signs are stable, oxygen remains around 91%. SPoke with Dr Barriga; she will put in que'd orders. Will give 30ml of lactulose here in the ER. Obs admission. Departure Communication (Admissions) Time/Spoke to Admitting Phy: 16:[address] Barriga Impression Primary Impression: Hepatic encephalopathy Disposition: ADMITTED INPATIENT Condition: Stable Admissions Decision to Admit Reason: Admit from ER (General) Decision to Admit/Date: Mar 30, 2021 Time/Decision to Admit Time: 16:08 Departure-Patient Inst. Referrals: DIANA BARRIGA DO (PCP/Family) Primary Care Physician SHELBY GOTTI MD Mar 30, 2021 15:05
[2021-03-30 15:24] LABS: BASOPHILS # (AUTO) 0.1 10^3/uL (0.0-0.1); BASOPHILS % (AUTO) 1 % (0-10); MONOCYTES # (AUTO) 0.6 10^3/uL (0.0-1.0)
[2021-03-30 15:26] LABS: EOSINOPHILS # (AUTO) 0.1 10^3/uL (0.0-0.3); EOSINOPHILS % (AUTO) 1 % (0-10); HEMATOCRIT 39 % (40-54); LYMPHOCYTES # (AUTO) 0.5 10^3/uL (1.0-4.0); LYMPHOCYTES % (AUTO) 9 % (12-44); MEAN CORPUSCULAR HEMOGLOBIN 29 pg (25-34); MEAN CORPUSCULAR HGB CONC 33 g/dL (32-36); MEAN CORPUSCULAR VOLUME 87 fL (80-99); MONOCYTES % (AUTO) 10 % (0-12); NEUTROPHILS # (AUTO) 4.6 10^3/uL (1.8-7.8); NEUTROPHILS % (AUTO) 78 % (42-75); PLATELET COUNT 153 10^3/uL (130-400); WHITE BLOOD COUNT 5.9 10^3/uL (4.3-11.0)
[2021-03-30 15:35] LABS: CALCIUM 8.7 MG/DL (8.5-10.1)
[2021-03-30 15:36] LABS: INR 1.2 (0.8-1.4); PROTHROMBIN TIME PATIENT 15.6 SEC (12.2-14.7)
[2021-03-30 15:37] LABS: TOTAL PROTEIN 6.2 GM/DL (6.4-8.2)
[2021-03-30 15:38] LABS: BILIRUBIN,TOTAL 1.7 MG/DL (0.1-1.0)
[2021-03-30 15:40] LABS: CREATININE SERUM 0.8 MG/DL (0.60-1.30)
[2021-03-30] MEDS ORDERED: LACTULOSE SYRUP 10GM/15ML (ENULOSE) 30ML UDC PO ONE (16:15)
--- NOTE | 2021-03-30 17:16 | History & Physical-Hospitalist ---
VERONIQUE CARRILLO MED STUDENT 03/30/21 1716: History of Present Illness HPI/Chief Complaint CC- Altered Mental Status Mr. Alvarez is a 56 yo male that presented today with increased confusion and altered mental status. Family states that around gerson they noticed him seeming spaced out and a little slower mentally. To assess his status at home they will have him write down words and they noticed that he could not spell or write in a straight line and they decided to have him come to the ED. State that since he has gotten worse and today he was just standing at the top of the stairs, he appeared lost and was holding a glass of water and dumping it on the floor. He also complains of some vague abdominal pain that has been there for a while. Says that it alternated between sharp and dull and is centered right in the middle of his abdomen. He does not really notice anything that makes the pain better or worse. Mr. Alvarez states that he does not feel more confused that normal but concedes that he probably is if his family is saying he is. He has liver disease and is supposed to take regular lactulose. He is in charge of his medications and says that nobody really helps him to take it. He knows he has not taken it in a while and family states he has been admitted multiple times for this. His ammonia is in the 100's and is around 2x his normal baseline. Source: patient, family Exam Limitations: no limitations Date Seen 03/30/21 Time Seen by a Provider: 16:45 Attending Physician Ivonne Barriga DO PCP Ivonne Barriga DO Referring Physician Date of Admission Mar 30, 2021 at 16:10 Home Medications & Allergies Home Medications Reviewed patient Home Medication Reconciliation performed by pharmacy medication reconciliations civil laboratory technician and/or nursing. Patients Allergies have been reviewed. Allergies Allergies Coded Allergies No Known Drug Allergies ([id number]/23/19) Past Haypbnj-Gtefks-Jetmfh Hx Patient Social History Tobacco Use?: Yes Smoking Status: Former Smoker Substance use?: No Immunizations Up To Date Date of Influenza Vaccine: Mar 27, 2020 First/Initial COVID19 Vaccinat: OCTOBER Second COVID19 Vaccination Yair: NOV Tetanus Booster (TDap): Unknown Hepatitis A: No Hepatitis B: No Seasonal Allergies Seasonal Allergies: No Current Status Primary Language: Gibraltarian Preferred Spoken Language: [place]tarian Implanted or Applied Medical D: BiPAP Past Medical History Sleep Apnea Currently Using CPAP: Yes Deep Vein Thrombosis, High Cholesterol, Hypertension Sexually Transmitted Disease: No HIV/AIDS: No Colitis, Gastroesophageal Reflux, Gastrointestinal Bleed, Hemorrhoids, Cirrhosis Chronic Back Pain Loss of Vision: Bilateral Hearing Impairment: Hard of Hearing Anxiety Psoriasis Blood Disorders: No Adverse Reaction/Blood Tranf: No (N/A) Family Medical History Cardiovascular disease 19 FATHER Diabetes mellitus 19 FATHER FH: hypertension 19 MOTHER Myocardial infarction 19 FATHER 19 MOTHER G8 BROTHER No Pertinent Family Hx Review of Systems Constitutional: No chills, No dizziness, No fever EENTM: No blurred vision Respiratory: No cough, No hemoptysis, No phlegm, No short of breath Cardiovascular: No chest pain, No edema, No palpitations Gastrointestinal: abdominal pain (Around umbilicus, sharp and dull, does not radiate); No constipation; diarrhea (chronic from lactulose); No dysphagia, No melena, No nausea, No vomiting Genitourinary: No dysuria, No frequency, No hematuria Musculoskeletal: No joint pain, No joint swelling Skin: No lesions, No pruritus, No rash Psychiatric/Neurological: Headache (Has had for a couple months) Physical Exam Physical Exam Vital Signs Vital Signs - First Documented 03/30/21 14:40 Temp 36.6 Pulse 68 Resp 18 B/P (MAP) 140/70 (93) Pulse Ox 91 O2 Delivery Room Air Capillary Refill : Less Than 3 Seconds Height, Weight, BMI Height: 5'10.00" Weight: 289lbs. 0.0oz. [id number]; 36.00 BMI Method:Stated General Appearance: No Apparent Distress, WD/WN Eyes: Bilateral Eye PERRL HEENT: PERRL/EOMI, Pharynx Normal Neck: Non Tender, Supple Respiratory: Chest Non Tender, Lungs Clear, Normal Breath Sounds, No Accessory Muscle Use, No Respiratory Distress Cardiovascular: Regular Rate, Rhythm, No Edema, No Murmur, Normal Peripheral Pulses Gastrointestinal: Normal Bowel Sounds, No Organomegaly, No Pulsatile Mass, Non Tender, Soft (Slightly distended but still soft) Rectal: Deferred Extremity: Normal Capillary Refill, Normal Inspection, Normal Range of Motion, Non Tender, No Calf Tenderness, No Pedal Edema Neurologic/Psychiatric: Alert, Oriented x3, Other Skin: Normal Color, Warm/Dry Results Results/Procedures Labs Laboratory Tests 11/30/21 15:10 Patient resulted labs reviewed. Assessment/Plan Admission Diagnosis Hyperammonemia - AMS Admission Status: Observation Reason for Inpatient Admission: Observation of AMS Assessment and Plan Hyperammonemia -Gave patient lactulose in ED -Check ammonia level in AM, can d/c if back to baseline -Ensure patient understands importance of taking lactulose, possibly set up some kind of reminder or help with medications -Patient has no questions or concerns at this time Supervisory-Addendum Brief Verification & Attestation Participated in pt care: history, physical Personally performed: exam, history Care discussed with: Medical Student Procedures: n/a n/a IVONNE BARRIGA DO 03/31/21 0641: History of Present Illness HPI/Chief Complaint Chief complaint: Hepatic encephalopathy History present illness: This is a 56-year-old white male patient of [facility] who has a past medical history of ulcerative colitis with primary biliary cirrhosis managed at by Dr. Chatterjee who maintains on rifaximin mean and occasional lactulose who presents to the ER with altered mental status found to have ammonia level of 110 so started on lactulose. Patient has been placed in observation to clear confusion prior to discharge. Source: patient Exam Limitations: no limitations Past Xyicxso-Nkyaus-Ihdeby Hx Patient Social History Marrital Status: Employed/Student: retired Smoking Status: Former Smoker Past Medical History COPD Deep Vein Thrombosis Colitis, Cirrhosis Chronic Back Pain Family Medical History Cardiovascular disease 19 FATHER Diabetes mellitus 19 FATHER FH: hypertension 19 MOTHER Myocardial infarction 19 FATHER 19 MOTHER G8 BROTHER Review of Systems Constitutional: see HPI, malaise, weakness EENTM: no symptoms reported Respiratory: no symptoms reported Cardiovascular: no symptoms reported Gastrointestinal: abdominal pain (Around umbilicus, sharp and dull, does not radiate), loss of appetite Genitourinary: no symptoms reported Musculoskeletal: no symptoms reported Skin: no symptoms reported Psychiatric/Neurological: Other (Confusion) Physical Exam Physical Exam General Appearance: No Apparent Distress, Chronically ill, Obese, Other (Slow to process) Eyes: Right Eye Normal Inspection, Right Eye PERRL HEENT: PERRL/EOMI, Normal ENT Inspection, Pharynx Normal, Moist Mucous Membranes Neck: Full Range of Motion, Normal Inspection, Non Tender Respiratory: Chest Non Tender, Lungs Clear, Normal Breath Sounds, No Accessory Muscle Use, No Respiratory Distress Cardiovascular: Regular Rate, Rhythm, No Edema, No Gallop, No JVD, No Murmur, Normal Peripheral Pulses Gastrointestinal: Normal Bowel Sounds, No Organomegaly, No Pulsatile Mass, Non Tender, Soft Back: Normal Inspection, No CVA Tenderness, No Vertebral Tenderness Extremity: Normal Capillary Refill, Normal Inspection, Normal Range of Motion, Non Tender, No Calf Tenderness, No Pedal Edema Neurologic/Psychiatric: Alert, Oriented x3, No Motor/Sensory Deficits, Normal Mood/Affect Skin: Normal Color, Warm/Dry Lymphatic: No Adenopathy Assessment/Plan Admission Diagnosis Assessment: Hepatic encephalopathy 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 I reviewed and verified all information documented by the medical student and made modifications to such information, when appropriate. I personally performed the physical exam and medical decision making. Ivonne Barriga, Mar 31, 2021,06:41 VERONIQUE CARRILLO MED STUDENT Mar 30, 2021 17:16 IVONNE BARRIGA DO Mar 31, 2021 06:41
[2021-03-30 17:33] VITALS: BP 127/70
[2021-03-30 18:05] VITALS: BP 140/70
[2021-03-30] MEDS ORDERED: RT-ALBUTEROL/IPRATROPIUM 3 ML (DUONEB) VIAL INH PRN (18:15)
[2021-03-30] MEDS: LACTULOSE SYRUP 10GM/15ML (ENULOSE) 30ML UDC PO SCH ×2 (18:31→19:51)
[2021-03-30 20:00] VITALS: BP 128/68
[2021-03-30] MEDS ORDERED: DOCUSATE SODIUM 100 MG (COLACE) CAP PO PRN (20:45)
[2021-03-30] MEDS ORDERED: CALCIUM CARBONATE 500 MG (TUMS) TAB.CHEW PO PRN (20:45)
[2021-03-30] MEDS ORDERED: MELATONIN 3 MG TABLET PO PRN (20:45)
[2021-03-30] MEDS ORDERED: LOPERAMIDE 2 MG (IMODIUM) TABLET PO PRN (20:45)
[2021-03-30] MEDS ORDERED: ONDANSETRON 4 MG/2 ML (SDV) Z0FRAN IVP PRN (20:45)
[2021-03-30] MEDS ORDERED: diphenhydrAMINE 25 MG TAB (BENADRYL) PO PRN (20:45)
[2021-03-30] MEDS ORDERED: ACETAMINOPHEN 500 MG TAB (TYLENOL) PO PRN (20:45)
[2021-03-30] MEDS: SENNA W/DOCUSATE (SENOKOT S) TABLET PO SCH (22:55)
[2021-03-30 23:17] VITALS: BP 120/63
[2021-03-31 04:14] VITALS: BP 127/69
[2021-03-31 04:43] LABS: MEAN CORPUSCULAR HEMOGLOBIN 29 pg (25-34); MEAN CORPUSCULAR HGB CONC 34 g/dL (32-36)
[2021-03-31 04:45] LABS: BASOPHILS # (AUTO) 0.1 10^3/uL (0.0-0.1); BASOPHILS % (AUTO) 1 % (0-10); EOSINOPHILS # (AUTO) 0.1 10^3/uL (0.0-0.3); EOSINOPHILS % (AUTO) 2 % (0-10); HEMATOCRIT 37 % (40-54); HEMOGLOBIN 12.3 g/dL (13.3-17.7); LYMPHOCYTES # (AUTO) 0.9 10^3/uL (1.0-4.0); LYMPHOCYTES % (AUTO) 14 % (12-44); MEAN CORPUSCULAR VOLUME 86 fL (80-99); MEAN PLATELET VOLUME 10.8 fL (9.0-12.2); MONOCYTES # (AUTO) 0.7 10^3/uL (0.0-1.0); MONOCYTES % (AUTO) 12 % (0-12); NEUTROPHILS # (AUTO) 4.2 10^3/uL (1.8-7.8); NEUTROPHILS % (AUTO) 70 % (42-75); PLATELET COUNT 149 10^3/uL (130-400)
[2021-03-31 04:59] LABS: ALBUMIN 2.9 GM/DL (3.2-4.5)
[2021-03-31 05:00] LABS: POTASSIUM 3.9 MMOL/L (3.6-5.0)
[2021-03-31 05:01] LABS: CALCIUM 8.5 MG/DL (8.5-10.1)
[2021-03-31 05:02] LABS: TOTAL PROTEIN 5.7 GM/DL (6.4-8.2)
[2021-03-31 05:04] LABS: BILIRUBIN,TOTAL 1.7 MG/DL (0.1-1.0)
[2021-03-31 05:06] LABS: CREATININE SERUM 0.72 MG/DL (0.60-1.30)
[2021-03-31] MEDS: LACTULOSE SYRUP 10GM/15ML (ENULOSE) 30ML UDC PO SCH ×3 (06:49→12:38)
--- NOTE | 2021-03-31 07:28 | Consultation - Surgery ---
ASHERVERONICAVARSHA 03/31/21 0728: History of Present Illness History of Present Illness Patient Consulted On(sindhu/time) 03/31/21 07:26 Date Seen by Provider: Mar 31, 2021 Time Seen by Provider: 07:02 History of Present Illness Previous HPI from ED: Patient is a 56-year-old male with a history of end-stage liver disease who presents to the emergency department today with his , chief complaint of increased confusion, abnormal behaviors. 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 His last visit with him was about a month ago. Patient denies any fevers, chills, cough or congestion. No earache or sore throat. No shortness of breath. He does endorse abdominal pain but his and he states that it is chronic. He feels like he has had a little bit more recently than usual. He is not on any chronic narcotic pain medications. He denies any black or bloody stools or urinary complaints. No Covid concerns he was vaccinated in November. Both he and his states that he does not like to take his lactulose and probably has not been taking it as directed. His states that she periodically assesses his confusion by having him write, she states that he was riding very crooked and unevenly, their son came home today to find him standing at the staircase spilling water all over the floor with a blank stare. At presentation the patient is awake alert oriented able to converse normally. Just complains of abdominal pain. All other review of systems reviewed and negative except as stated. Pt is 56yoCM who presents with AMS and abdominal pain. He has a known hx of end stage liver dz and has not been taking his lactulose resulting in hyperammonemia and AMS. Today when I visited the pt he states that his abdominal pain is all but gone. He states that moving makes it worse and sitting still makes it better. His abdomen was soft, non-tender to palpation and non-distended. His blood ammonia levels are improved today from a high of 110 yesterday down to 86 (baseline of 50-70). He is fully alert and able to answer questions and has no urinary or bowl dysfunctions at this time. He does not appear to need any surgical intervention at this time. Allergies and Home Medications Allergies Coded Allergies: No Known Drug Allergies (Verified , 02/20/19) Patient Home Medication List Amlodipine Besylate (Amlodipine Besylate) 5 Mg Tablet, 5 MG PO DAILY, (Reported) Entered as Reported by: ARGENTINA LATHAM on 07/02/181638 Last Action: Continued Betamethasone/Propylene Glyc (Betamethasone Dp Aug 0.05% Crm) 15 Gm Cream..g., 1 APPLIC TOP BID PRN for ECZEMA, (Reported) Entered as Reported by: ИВАН MCGHEE on 03/31/21 103 Last Action: Continued Bisoprolol Fumarate (Bisoprolol Fumarate) 10 Mg Tablet, 10 MG PO DAILY, (Reported) Entered as Reported by: ARGENTINA LATHAM on 07/02/181638 Last Action: Converted Citalopram Hydrobromide (Citalopram HBr) 40 Mg Tablet, 40 MG PO DAILY, (Reported) Entered as Reported by: ИВАН MCGHEE on 01/23/20 165 Last Action: Converted Ergocalciferol (Vitamin D2) (Vitamin D2) 1,250 Mcg Capsule, 1,250 MCG PO SAT @1200, (Reported) Entered as Reported by: ИВАН MCGHEE on 06/22/20 0911 Last Action: Continued Magnesium Oxide (Magnesium Oxide) 250 Mg Tablet, 500 MG PO BID, (Reported) Entered as Reported by: ИВАН MCGHEE on 03/31/21 103 Last Action: Converted Omeprazole (Omeprazole) 40 Mg Capsule.dr, 40 MG PO DAILY, (Reported) Entered as Reported by: ARGENTINA LATHAM on 07/02/181638 Last Action: Converted Potassium Chloride (Potassium Chloride) 10 Meq Capsule.er, 10 MEQ PO 1200, (Reported) Entered as Reported by: ИВАН MCGHEE on 01/23/20 165 Last Action: Converted Rifaximin (Xifaxan) 550 Mg Tablet, 550 MG PO BID, (Reported) Entered as Reported by: ARGENTINA LATHAM on 07/02/181638 Last Action: Continued Spironolactone (Spironolactone) 25 Mg Tablet, 50 MG PO DAILY, (Reported) Entered as Reported by: GERALD GROVE on 05/28/17 1451 Last Action: Continued Sulfasalazine (Sulfasalazine) 500 Mg Tablet, 3,000 MG PO HS, (Reported) Entered as Reported by: ИВАН MCGHEE on 01/23/201655 Last Action: Continued Vitamin A (Vitamin A) 2,400 Mcg Capsule, 2,400 MCG PO 1200, (Reported) Entered as Reported by: ИВАН MCGHEE on 03/31/21 103 Last Action: Converted Discontinued Medications Folic Acid (Folic Acid) 1 Mg Tablet, 1 MG PO 1200, (Reported) Discontinued Reason: No Longer Taking Entered as Reported by: ИВАН MCGHEE on 06/22/20 0911 Last Action: Discontinued Iron Sucrose Complex (Venofer) 200 Mg/10 Ml Vial, 200 MG IV Q48H@09 Prescribed by: DIANA BARRIGA on 06/25/20 1032 Last Action: Discontinued Lactulose (Constulose) 10 Gm/15 Ml Solution, 15 ML PO BID Discontinued Reason: No Longer Taking Prescribed by: DIANA BARRIGA on 06/25/20 103 Last Action: Discontinued Magnesium Oxide (Magnesium) 400 Mg Tablet, 400 MG PO BID, (Reported) Discontinued Reason: Prescription changed Entered as Reported by: ARGENTINA LATHAM on 07/02/18 1639 Methotrexate Sodium (Methotrexate) 2.5 Mg Tablet, 20 MG PO SUN, (Reported) Discontinued Reason: No Longer Taking Entered as Reported by: ИВАН MCGHEE on 06/22/20 0911 Last Action: Discontinued Prednisone (Prednisone) 10 Mg Tab.ds.pk, 50 MG PO DAILY Prescribed by: DIANA BARRIGA on 06/25/20 103 Last Action: Discontinued Venlafaxine HCl (Venlafaxine HCl) 25 Mg Tablet, 25 MG PO DAILY, (Reported) Discontinued Reason: No Longer Taking Entered as Reported by: ИВАН MCGHEE on 01/23/201655 Last Action: Discontinued Vitamin A (Vitamin A) 8,000 Unit Capsule, 8,000 UNIT PO 1200, (Reported) Discontinued Reason: Prescription changed Entered as Reported by: ИВАН MCGHEE on 01/23/201655 Past Erdzhzd-Jtplow-Bwuujw Hx Patient Social History Smoking Status: Former Smoker Former Smoker, Quit: May 01, 2015 Type Used: Cigarettes 2nd Hand Smoke Exposure: No Recent Hopitalizations: No Alcohol Use?: No Have you traveled recently?: No Immunizations Up To Date Tetanus Booster (TDap): Unknown Date of Influenza Vaccine: Dec 30, 2020 Seasonal Allergies Seasonal Allergies: No Surgeries History of Surgeries: Yes Respiratory History of Respiratory Disorde: No Respiratory Disorders: COPD Cardiovascular History of Cardiac Disorders: Yes Cardiac Disorders: Deep Vein Thrombosis Neurological History of Neurological Disord: No Reproductive System Sexually Transmitted Disease: No HIV/AIDS: No Genitourinary History of Genitourinary Disor: No Gastrointestinal History of Gastrointestinal Di: Yes Gastrointestinal Disorders: Colitis, Cirrhosis Musculoskeletal History of Musculoskeletal Dis: No Musculoskeletal Disorders: Chronic Back Pain Endocrine History of Endocrine Disorders: No HEENT History of HEENT Disorders: Yes (GLASSES) Loss of Vision: Bilateral Hearing Impairment: Hard of Hearing Cancer History of Cancer: No Psychosocial History of Psychiatric Problem: No Behavioral Health Disorders: Anxiety Integumentary History of Skin or Integumenta: Yes Skin/Integumentary Disorders: Psoriasis Blood Transfusions History of Blood Disorders: No Adverse Reaction to a Blood Tr: No (N/A) Family Medical History Significant Family History: Diabetes (Dad) Family Medial History: Cardiovascular disease 19 FATHER Diabetes mellitus 19 FATHER FH: hypertension 19 MOTHER Myocardial infarction 19 FATHER 19 MOTHER G8 BROTHER Review of Systems-General Constitutional: No chills, No dizziness, No fever, No malaise, No weakness EENTM: No blurred vision, No hoarseness, No mouth pain, No throat pain Respiratory: No cough, No dyspnea on exertion, No hemoptysis, No orthopnea, No phlegm, No short of breath Cardiovascular: No chest pain, No edema, No palpitations Gastrointestinal: No abdominal pain, No diarrhea, No dysphagia, No hematemesis, No melena, No nausea, No vomiting Genitourinary: No decreased output, No hematuria, No incontinence Musculoskeletal: No back pain, No joint pain, No muscle pain, No muscle stiffness, No muscle weakness, No neck pain Skin: No change in color, No change in hair/nails, No dryness, No pruritus Psychiatric/Neurological: Denies Headache, Denies Numbness, Denies Tingling, Denies Tremors, Denies Weakness Physical Exam-General Problems Physical Exam Vital Signs Vital Signs - First Documented 03/30/21 03/30/21 14:40 18:05 Temp 36.6 Pulse 68 Resp 18 B/P (MAP) 140/70 (93) Pulse Ox 91 O2 Delivery Room Air FiO2 21 Capillary Refill : Less Than 3 Seconds General Appearance: WD/WN, no apparent distress Eyes: Bilateral Eye PERRL, Bilateral Eye EOMI HEENT: PERRL/EOMI, pharynx normal Neck: non-tender, full range of motion, supple Respiratory: chest non-tender, lungs clear, normal breath sounds, no respiratory distress, no accessory muscle use Cardiovascular: normal peripheral pulses, regular rate, rhythm, no edema, no gallop, no murmur Peripheral Pulses: 2+ Radial Pulses (R), 2+ Radial Pulses (L) Gastrointestinal: normal bowel sounds, non tender, soft, no organomegaly, no pulsatile mass Back: no CVA tenderness, no vertebral tenderness Extremities: normal range of motion, non-tender, no pedal edema, no calf tenderness, normal capillary refill Neurologic/Psychiatric: resident care spec II-XII nml as tested, no motor/sensory deficits, alert, normal mood/affect, oriented x 3 Reflexes: 2+ Bicep (R), 2+ Bicep (L) Skin: normal color, warm/dry Lymphatic: no adenopathy (cervical and axillary) Data Review Labs Laboratory Tests 03/30/21 15:10: White Blood Count 5.9, Red Blood Count 4.49, Hemoglobin 13.0L, Hematocrit 39L, Mean Corpuscular Volume 87, Mean Corpuscular Hemoglobin 29, Mean Corpuscular Hemoglobin Concent 33, Red Cell Distribution Width 14.6H, Platelet Count 153, Mean Platelet Volume 10.0, Immature Granulocyte % (Auto) 1, Neutrophils (%) (Auto) 78H, Lymphocytes (%) (Auto) 9L, Monocytes (%) (Auto) 10, Eosinophils (%) (Auto) 1, Basophils (%) (Auto) 1, Neutrophils # (Auto) 4.6, Lymphocytes # (Auto) 0.5L, Monocytes # (Auto) 0.6, Eosinophils # (Auto) 0.1, Basophils # (Auto) 0.1, Immature Granulocyte # (Auto) 0.1, Percent Immature Platelet Fraction 2.2, Prothrombin Time 15.6H, INR Comment 1.2, Activated Partial Thromboplast Time 40H , Sodium Level 136, Potassium Level 4.0, Chloride Level 106, Carbon Dioxide Level 23, Anion Gap 7, Blood Urea Nitrogen 13, Creatinine 0.80, Estimat Glomerular Filtration Rate 100, BUN/Creatinine Ratio 16, Glucose Level 102, Calcium Level 8.7, Corrected Calcium 9.5, Total Bilirubin 1.7H, Aspartate Amino Transf (AST/SGOT) 70H, Alanine Aminotransferase (ALT/SGPT) 30, Alkaline Phosphatase 270H, Ammonia 110H, Total Protein 6.2L, Albumin 3.0L 03/31/21 04:23: White Blood Count 6.0, Red Blood Count 4.23L, Hemoglobin 12.3L, Hematocrit 37L, Mean Corpuscular Volume 86, Mean Corpuscular Hemoglobin 29, Mean Corpuscular Hemoglobin Concent 34, Red Cell Distribution Width 14.6H, Platelet Count 149, Mean Platelet Volume 10.8, Immature Granulocyte % (Auto) 1, Neutrophils (%) (Auto) 70, Lymphocytes (%) (Auto) 14, Monocytes (%) (Auto) 12, Eosinophils (%) (Auto) 2, Basophils (%) (Auto) 1, Neutrophils # (Auto) 4.2, Lymphocytes # (Auto) 0.9L, Monocytes # (Auto) 0.7, Eosinophils # (Auto) 0.1, Basophils # (Auto) 0.1, Immature Granulocyte # (Auto) 0.1, Percent Immature Platelet Fraction 3.1, Sodium Level 136, Potassium Level 3.9, Chloride Level 107, Carbon Dioxide Level 20L, Anion Gap 9, Blood Urea Nitrogen 12, Creatinine 0.72, Estimat Glomerular Filtration Rate 113, BUN/Creatinine Ratio 17, Glucose Level 99, Calcium Level 8.5, Corrected Calcium 9.4, Total Bilirubin 1.7H, Aspartate Amino Transf (AST/SGOT) 69H, Alanine Aminotransferase (ALT/SGPT) 30, Alkaline Phosphatase 298H, Ammonia 86H, Total Protein 5.7L, Albumin 2.9L Assessment/Plan Assessment/Plan Assessment/Plan Assessment: Hepatic encephalopathy 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 MIGUEL CHAPPELL DO 03/31/21 1342: History of Present Illness History of Present Illness Time Seen by Provider: 11:47 History of Present Illness Surgery asked to consult regarding abdominal pain. When I saw pt this am he states he has very minimal pain, "they gave me a shot and it went away". He came in to the hospital because of the confusion, Hepatic Encephalopathy. He states he usually has abdominal pain and this pain is no worse than what he usually has. He is tolerating diet. Allergies and Home Medications Allergies Coded Allergies: No Known Drug Allergies (Verified , 02/20/19) Patient Home Medication List Home Medication List Reviewed: Yes Amlodipine Besylate (Amlodipine Besylate) 5 Mg Tablet, 5 MG PO DAILY, (Reported) Entered as Reported by: ARGENTINA LATHAM on 07/02/181638 Last Action: Continued Betamethasone/Propylene Glyc (Betamethasone Dp Aug 0.05% Crm) 15 Gm Cream..g., 1 APPLIC TOP BID PRN for ECZEMA, (Reported) Entered as Reported by: ИВАН MCGHEE on 03/31/21 103 Last Action: Continued Bisoprolol Fumarate (Bisoprolol Fumarate) 10 Mg Tablet, 10 MG PO DAILY, (Reported) Entered as Reported by: ARGENTINA LATHAM on 07/02/181638 Last Action: Converted Citalopram Hydrobromide (Citalopram HBr) 40 Mg Tablet, 40 MG PO DAILY, (Reported) Entered as Reported by: ИВАН MCGHEE on 01/23/20 165 Last Action: Converted Ergocalciferol (Vitamin D2) (Vitamin D2) 1,250 Mcg Capsule, 1,250 MCG PO SAT @1200, (Reported) Entered as Reported by: ИВАН MCGHEE on 06/22/20 0911 Last Action: Continued Magnesium Oxide (Magnesium Oxide) 250 Mg Tablet, 500 MG PO BID, (Reported) Entered as Reported by: ИВАН MCGHEE on 03/31/21 103 Last Action: Converted Omeprazole (Omeprazole) 40 Mg Capsule.dr, 40 MG PO DAILY, (Reported) Entered as Reported by: ARGENTINA LATHAM on 07/02/181638 Last Action: Converted Potassium Chloride (Potassium Chloride) 10 Meq Capsule.er, 10 MEQ PO 1200, (Reported) Entered as Reported by: ИВАН MCGHEE on 01/23/20 165 Last Action: Converted Rifaximin (Xifaxan) 550 Mg Tablet, 550 MG PO BID, (Reported) Entered as Reported by: ARGENTINA LATHAM on 07/02/181638 Last Action: Continued Spironolactone (Spironolactone) 25 Mg Tablet, 50 MG PO DAILY, (Reported) Entered as Reported by: GERALD GROVE on 05/28/17 1451 Last Action: Continued Sulfasalazine (Sulfasalazine) 500 Mg Tablet, 3,000 MG PO HS, (Reported) Entered as Reported by: ИВАН MCGHEE on 01/23/20 165 Last Action: Continued Vitamin A (Vitamin A) 2,400 Mcg Capsule, 2,400 MCG PO 1200, (Reported) Entered as Reported by: ИВАН MCGHEE on 03/31/21 1032 Last Action: Converted Discontinued Medications Folic Acid (Folic Acid) 1 Mg Tablet, 1 MG PO 1200, (Reported) Discontinued Reason: No Longer Taking Entered as Reported by: ИВАН MCGHEE on 06/22/20 0911 Last Action: Discontinued Iron Sucrose Complex (Venofer) 200 Mg/10 Ml Vial, 200 MG IV Q48H@09 Prescribed by: DIANA BARRIGA on 06/25/20 103 Last Action: Discontinued Lactulose (Constulose) 10 Gm/15 Ml Solution, 15 ML PO BID Discontinued Reason: No Longer Taking Prescribed by: DIANA BARRIGA on 06/25/20 1032 Last Action: Discontinued Magnesium Oxide (Magnesium) 400 Mg Tablet, 400 MG PO BID, (Reported) Discontinued Reason: Prescription changed Entered as Reported by: ARGENTINA LATHAM on 07/02/18 1639 Methotrexate Sodium (Methotrexate) 2.5 Mg Tablet, 20 MG PO SUN, (Reported) Discontinued Reason: No Longer Taking Entered as Reported by: ИВАН MCGHEE on 06/22/20 0911 Last Action: Discontinued Prednisone (Prednisone) 10 Mg Tab.ds.pk, 50 MG PO DAILY Prescribed by: DIANA BARRIGA on 06/25/20 1032 Last Action: Discontinued Venlafaxine HCl (Venlafaxine HCl) 25 Mg Tablet, 25 MG PO DAILY, (Reported) Discontinued Reason: No Longer Taking Entered as Reported by: ИВАН MCGHEE on 01/23/20 165 Last Action: Discontinued Vitamin A (Vitamin A) 8,000 Unit Capsule, 8,000 UNIT PO 1200, (Reported) Discontinued Reason: Prescription changed Entered as Reported by: ИВАН MCGHEE on 01/23/20 165 Past Lflufou-Yiuzrv-Owhlxq Hx Patient Social History Smoking Status: Former Smoker Surgeries History of Surgeries: Yes (colonoscopies) Neurological History of Neurological Disord: Yes (hepatic encephalopathy) Genitourinary History of Genitourinary Disor: No Gastrointestinal History of Gastrointestinal Di: Yes Gastrointestinal Disorders: Crohns Disease, Esophageal Varices, Cirrhosis Musculoskeletal History of Musculoskeletal Dis: Yes Musculoskeletal Disorders: Arthritis Endocrine History of Endocrine Disorders: Yes Endocrine Disorders: Diabetes, Insulin dep HEENT History of HEENT Disorders: Yes (decreased and wears glasses) Hearing Impairment: Hard of Hearing Cancer History of Cancer: No Psychosocial History of Psychiatric Problem: Yes Behavioral Health Disorders: Anxiety Integumentary History of Skin or Integumenta: Yes Skin/Integumentary Disorders: Psoriasis Family Medical History Significant Family History: CAD Over 55 Years Old, Diabetes (Dad), Hypertension Family Medial History: Cardiovascular disease 19 FATHER Diabetes mellitus 19 FATHER FH: hypertension 19 MOTHER Myocardial infarction 19 FATHER 19 MOTHER G8 BROTHER Review of Systems-General Constitutional: No chills, No dizziness, No fever, No malaise, No weakness EENTM: No blurred vision, No hoarseness, No mouth pain Respiratory: No cough, No dyspnea on exertion, No hemoptysis, No phlegm, No short of breath Cardiovascular: No chest pain, No edema, No palpitations Gastrointestinal: abdominal pain; No diarrhea, No dysphagia, No hematemesis, No melena, No nausea, No vomiting Genitourinary: No decreased output, No hematuria Musculoskeletal: back pain; No joint pain, No muscle pain, No muscle stiffness; muscle weakness; No neck pain Skin: No change in color, No change in hair/nails, No dryness Psychiatric/Neurological: Denies Headache, Denies Numbness, Denies Tingling, Denies Tremors, Denies Weakness; Other (confusion secondary to hepatic encephalopathy) Physical Exam-General Problems Physical Exam General Appearance: no apparent distress, obese Eyes: Bilateral Eye PERRL, Bilateral Eye EOMI HEENT: pharynx normal; No scleral icterus (R), No scleral icterus (L) Neck: non-tender, supple Respiratory: lungs clear, normal breath sounds, no respiratory distress, no accessory muscle use Cardiovascular: regular rate, rhythm, no murmur Gastrointestinal: soft, no organomegaly, guarding (voluntary), tenderness (with deep palpation) Back: no CVA tenderness, no vertebral tenderness Extremities: no pedal edema, no calf tenderness Neurologic/Psychiatric: alert, normal mood/affect, oriented x 3 Assessment/Plan Assessment/Plan Assessment/Plan Assessment: Hepatic encephalopathy 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 Supervisory-Addendum Brief Verification & Attestation Participated in pt care: history, MDM, physical Personally performed: exam, history, MDM, supervision of care Care discussed with: Medical Student Procedures: n/a Verification and Attestation of Medical Student E/M Service A medical student performed and documented this service. I then reviewed and verified all information documented by the medical student and made modifications to such information, when appropriate. I personally performed a physical exam, medical decision making and then discussed any differences between the notes and made revisions as necessary to create one note. Miguel Chappell , 03/31/21 , 13:47 VARSHA ROE Mar 31, 2021 07:28 MIGUEL CHAPPELL DO Mar 31, 2021 13:42
[2021-03-31 08:00] VITALS: BP 124/73
[2021-03-31] MEDS: SENNA W/DOCUSATE (SENOKOT S) TABLET PO SCH (08:05)
[2021-03-31] MEDS ORDERED: ENOXAPARIN 40 MG/0.4 ML (LOVENOX) SYR SC SCH (09:00)
[2021-03-31] MEDS ORDERED: BETA15CR14 TOP ×2 (10:32)
[2021-03-31] MEDS ORDERED: VITA80006 PO ×2 (10:32)
[2021-03-31] MEDS ORDERED: MAGN250T35 PO ×2 (10:32)
[2021-03-31] MEDS ORDERED: BETAMETHASONE DIPRO (AUGMENTED) 0.05% CREAM 15 GM TOP PRN (10:45)
[2021-03-31 12:00] VITALS: BP 119/66
[2021-03-31] MEDS ORDERED: [UNRECOGNIZED DRUG - REMARK] PO SCH (12:00)
[2021-03-31] MEDS ORDERED: [UNRECOGNIZED DRUG - REMARK] PO SCH (12:00)
[2021-03-31] MEDS ORDERED: PATIENT MAY USE OWN MEDS, ALL MC SCH (12:15)
--- NOTE | 2021-03-31 13:51 | Progress Note ---
VERONIQUE CARRILLO MED STUDENT 03/31/21 1351: Progress Note Mr. Alvarez is a clinic patient of Dr. Casas that presented to the ED yesterday due to altered mental status. His stated that for a couple of days his mentation was seeming to decline and on the day of his admission he was seen standing at the top of some stairs and pouring out a glass of water. In the ED he is noted to have an ammonia level of 110 where his usual levels run around 50-60. He does have a complicated history of liver disease and colitis. He states that he knows he has not been taking his prescribed lactulose and did not realize that his mental function was declining. He was admitted for overnight observation and given his lactulose. On the next day his ammonia dropped to mid 80's and his mentation was improved. He did not complain of any of the abdominal pain that he presented with. His thinks he is not greatly improved but thinks he is okay to go home. He states that it is easier to take his lactulose when he can david it with sprite and will try doing that from now on. Surgery was consulted due to his history of colitis but did not reccomend any surgical intervention. He has no concerns or questions at the time of his discharge. The rest of his labs were stable at time of discharge as well as his vitals. He stayed one overnight in the hospital. Supervisory-Addendum Brief Verification & Attestation Participated in pt care: history, physical Personally performed: exam, history Care discussed with: Medical Student Procedures: n/a n/a IVONNE CASAS DO 04/01/2128: Supervisory-Addendum Brief Verification & Attestation Participated in pt care: history, MDM, physical Personally performed: exam, history, MDM, supervision of care Care discussed with: Medical Student Procedures: n/a Results interpretation: Verified all documentation Verification and Attestation of Medical Student E/M Service A medical student performed and documented this service in my presence. I reviewed and verified all information documented by the medical student and made modifications to such information, when appropriate. I personally performed the physical exam and medical decision making. Ivonne Casas, Apr 01, 2021,05:28 VERONIQUE CARRILLO MED STUDENT Mar 31, 2021 13:51 IVONNE CASAS DO Apr 01, 2021 05:28
[2021-03-31] MEDS ORDERED: LACT20SO2 PO ×2 (15:37)
--- NOTE | 2021-03-31 15:38 | Discharge Summary ---
Discharge Summary Hospital Course Was the Problem List Reviewed?: Yes Problems/Dx: (1) Hepatic encephalopathy Status: Acute Hospital Course Date of Admission: Mar 30, 2021 at 16:10 Admission Diagnosis : Family Physician/Provider: Ivonne Casas DO Date of Discharge: 03/31/21 Discharge Diagnosis: Hepatic encephalopathy Hospital Course: Mr. Alvarez is a clinic patient of Dr. Casas that presented to the ED yesterday due to altered mental status. His stated that for a couple of days his mentation was seeming to decline and on the day of his admission he was seen standing at the top of some stairs and pouring out a glass of water. In the ED he is noted to have an ammonia level of 110 where his usual levels run around 50-60. He does have a complicated history of liver disease and colitis. He states that he knows he has not been taking his prescribed lactulose and did not realize that his mental function was declining. He was admitted for overnight observation and given his lactulose. On the next day his ammonia dropped to mid 80's and his mentation was improved. He did not complain of any of the abdominal pain that he presented with. His thinks he is not greatly improved but thinks he is okay to go home. He states that it is easier to take his lactulose when he can david it with sprite and will try doing that from now on. Surgery was consulted due to his history of colitis but did not reccomend any surgical intervention. He has no concerns or questions at the time of his discharge. The rest of his labs were stable at time of discharge as well as his vitals. He stayed one overnight in the hospital. Labs and Pending Lab Test: Laboratory Tests 03/31/21 04:23: White Blood Count 6.0, Red Blood Count 4.23L, Hemoglobin 12.3L, Hematocrit 37L, Mean Corpuscular Volume 86, Mean Corpuscular Hemoglobin 29, Mean Corpuscular Hemoglobin Concent 34, Red Cell Distribution Width 14.6H, Platelet Count 149, Mean Platelet Volume 10.8, Immature Granulocyte % (Auto) 1, Neutrophils (%) (Auto) 70, Lymphocytes (%) (Auto) 14, Monocytes (%) (Auto) 12, Eosinophils (%) (Auto) 2, Basophils (%) (Auto) 1, Neutrophils # (Auto) 4.2, Lymphocytes # (Auto) 0.9L, Monocytes # (Auto) 0.7, Eosinophils # (Auto) 0.1, Basophils # (Auto) 0.1, Immature Granulocyte # (Auto) 0.1, Percent Immature Platelet Fraction 3.1, Sodium Level 136, Potassium Level 3.9, Chloride Level 107, Carbon Dioxide Level 20L, Anion Gap 9, Blood Urea Nitrogen 12, Creatinine 0.72, Estimat Glomerular Filtration Rate 113, BUN/Creatinine Ratio 17, Glucose Level 99, Calcium Level 8.5, Corrected Calcium 9.4, Total Bilirubin 1.7H, Aspartate Amino Transf (AST/SGOT) 69H, Alanine Aminotransferase (ALT/SGPT) 30, Alkaline Phosphatase 298H, Ammonia 86H, Total Protein 5.7L, Albumin 2.9L Home Meds Active Lactulose 20 Gm/30 Ml Solution 10 Gm PO 5XD Reported Betamethasone Dp Aug 0.05% Crm (Betamethasone/Propylene Glyc) 15 Gm Cream..g. 1 Applic TOP BID PRN Vitamin A 2,400 Mcg Capsule 2,400 Mcg PO 1200 Magnesium Oxide 250 Mg Tablet 500 Mg PO BID TAKES 2 (250MG) TABS Vitamin D2 (Ergocalciferol (Vitamin D2)) 1,250 Mcg Capsule 1,250 Mcg PO SAT @1200 Citalopram HBr (Citalopram Hydrobromide) 40 Mg Tablet 40 Mg PO DAILY Potassium Chloride 10 Meq Capsule.er 10 Meq PO 1200 Sulfasalazine 500 Mg Tablet 3,000 Mg PO HS TAKES 6 (500MG) TABS Bisoprolol Fumarate 10 Mg Tablet 10 Mg PO DAILY Omeprazole 40 Mg Capsule.dr 40 Mg PO DAILY Xifaxan (Rifaximin) 550 Mg Tablet 550 Mg PO BID Amlodipine Besylate 5 Mg Tablet 5 Mg PO DAILY Spironolactone 25 Mg Tablet 50 Mg PO DAILY TAKES 2 (25MG) TABS Assessment/Pt Instructions Dr. Casas 1 week Discharge Planning: <30 minutes discharge planning Discharge Instructions Discharge Diet: No Restrictions Discharge Physical Examination Vital Signs Vital Signs Date Time Temp Pulse Resp B/P (MAP) Pulse Ox O2 Delivery O2 Flow Rate FiO2 03/31/21 12:00 36.9 67 16 119/66 (83) 95 Room Air 03/30/21 18:05 21 General Appearance: No Apparent Distress, WD/WN, Chronically ill Allergies: Coded Allergies: No Known Drug Allergies (Verified , 02/20/19) Discharge Summary Date of Admission Mar 30, 2021 at 16:10 Date of Discharge Discharge Date: Mar 31, 2021 Admission Diagnosis Assessment: Hepatic encephalopathy 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
[2021-03-31 16:16] VITALS: BP 135/73
[2021-03-31] MEDS ORDERED: sulfaSALAzine 500 MG (AZULFIDINE) TAB PO SCH (21:00)
[2021-03-31] MEDS ORDERED: RIFAXIMIN 550 MG TABLET (XIFAXAN) PO SCH (21:00)
[2021-03-31] MEDS ORDERED: [UNRECOGNIZED DRUG - REMARK] PO SCH (21:00)
[2021-04-01] MEDS ORDERED: [UNRECOGNIZED DRUG - REMARK] PO SCH (09:00)
[2021-04-01] MEDS ORDERED: [UNRECOGNIZED DRUG - REMARK] PO SCH (09:00)
[2021-04-01] MEDS ORDERED: SPIRONOLACTONE 25 MG (ALDACTONE) TAB PO SCH (09:00)
[2021-04-01] MEDS ORDERED: [UNRECOGNIZED DRUG - REMARK] PO SCH (09:00)
[2021-04-01] MEDS ORDERED: amLODIPine 5 MG (NORVASC) TAB PO SCH (09:00)
[2021-04-03] MEDS ORDERED: VITAMIN D2 1.25 MG (50,000 UNITS) CAP PO SCH (12:00)
== END 2021-03-31 15:33 | disposition home or self-care (01) ==
LOC: EDUNIT# 14:25 → ER 14:27 → UNDOADMOB 16:10 → CSD 16:10 → 4TH 03-31 14:30 → UNDODISOB 03-31 16:45
PROVIDERS: ADMIT Internal Medicine; ATTEND Internal Medicine
DX: K72.90 Hepatic failure, unspecified without coma (principal); K74.60 Unspecified cirrhosis of liver; E78.00 Pure hypercholesterolemia, unspecified; M54.9 Dorsalgia, unspecified; I10 Essential (primary) hypertension; K21.9 Gastro-esophageal reflux disease without esophagitis; J44.9 Chronic obstructive pulmonary disease, unspecified; G89.29 Other chronic pain; E72.20 Disorder of urea cycle metabolism, unspecified; K51.90 Ulcerative colitis, unspecified, without complications; F41.9 Anxiety disorder, unspecified; Z79.899 Other long term (current) drug therapy; Z87.891 Personal history of nicotine dependence; Z86.718 Personal history of other venous thrombosis and embolism; Z83.3 Family history of diabetes mellitus
CPT/HCPCS: 80053 ×2; 82140 ×2; 85025 ×2; 85610; 85730; 99284; G0378; 36415

== ENCOUNTER → 2021-04-19 | Outpatient (CLI) | payer MEDICARE ==
[~2021-04-19] MED LIST changes: +BETA15CR14 TOP; +MAGN250T35 PO
--- NOTE | 2021-04-19 15:44 | Diagnostic Imaging Report ---
PROCEDURE: US Venous Lower Ext Richard. TECHNIQUE: Multiple real-time grayscale images were obtained over the lower extremities in various projections, bilaterally. Additional duplex Doppler and color Doppler images were also obtained. INDICATION: Lower extremity swelling and pain. COMPARISON: None. FINDINGS: Visualized deep and superficial venous system is patent. There is no DVT. IMPRESSION: Negative lower extremity venous Doppler. Dictated by: Dictated on workstation # [id number]
== END ==
LOC: RAD 14:37
PROVIDERS: ATTEND Internal Medicine
DX: M79.89 Other specified soft tissue disorders (principal); M79.661 Pain in right lower leg; M79.662 Pain in left lower leg
CPT/HCPCS: 93970

== ENCOUNTER → 2021-05-10 | Outpatient (CLI) | payer MEDICARE ==
[2021-05-10 07:58] LABS: BASOPHILS # (AUTO) 0.1 10^3/uL (0.0-0.1); BASOPHILS % (AUTO) 2 % (0-10); EOSINOPHILS # (AUTO) 0.6 10^3/uL (0.0-0.3); EOSINOPHILS % (AUTO) 8 % (0-10); HEMATOCRIT 36 % (40-54); HEMOGLOBIN 12.1 g/dL (13.3-17.7); LYMPHOCYTES # (AUTO) 0.8 10^3/uL (1.0-4.0); LYMPHOCYTES % (AUTO) 11 % (12-44); MEAN CORPUSCULAR HEMOGLOBIN 28 pg (25-34); MEAN CORPUSCULAR HGB CONC 33 g/dL (32-36); MEAN CORPUSCULAR VOLUME 85 fL (80-99); MEAN PLATELET VOLUME 10.2 fL (9.0-12.2); MONOCYTES # (AUTO) 0.6 10^3/uL (0.0-1.0); MONOCYTES % (AUTO) 9 % (0-12); NEUTROPHILS # (AUTO) 4.8 10^3/uL (1.8-7.8); NEUTROPHILS % (AUTO) 69 % (42-75); PLATELET COUNT 208 10^3/uL (130-400)
[2021-05-10 08:11] LABS: INR 1.1 (0.8-1.4)
[2021-05-10 08:36] LABS: ALBUMIN 2.6 GM/DL (3.2-4.5); BILIRUBIN,TOTAL 2.2 MG/DL (0.1-1.0); CALCIUM 8.4 MG/DL (8.5-10.1); CREATININE SERUM 0.66 MG/DL (0.60-1.30); POTASSIUM 3.8 MMOL/L (3.6-5.0); TOTAL PROTEIN 5.6 GM/DL (6.4-8.2)
--- NOTE | 2021-05-10 09:21 | Diagnostic Imaging Report ---
INDICATION: PROCEDURE: Ultrasound abdomen complete. TECHNIQUE: Multiple real-time grayscale images were obtained of the abdomen in various projections. INDICATION: Hepatic cirrhosis Liver surface is lobulated. The echotexture is heterogeneous. The portal vein is patent with hepatofugal flow. Gallbladder is unremarkable. Spleen is enlarged measuring 15.6 cm. Common duct and pancreas are both obscured by bowel gas. Aorta and IVC appear normal. Right kidney measures 11.8 cm length. Left kidney measures 13.8 cm length. There is no mass, calculus or hydronephrosis. There is no ascites. IMPRESSION: Hepatic cirrhosis. Splenomegaly. There is hepatofugal flow in the portal vein consistent with portal hypertension. Dictated by: Dictated on workstation # [id number]
== END ==
LOC: RAD 07:15
PROVIDERS: ATTEND Nurse Practitioner Adult Health
DX: K74.69 Other cirrhosis of liver (principal); K83.01 Primary sclerosing cholangitis
CPT/HCPCS: 36415; 76700; 80053; 82105; 82306; 84590; 85025; 85610

== ENCOUNTER 2021-10-14 14:21 | Inpatient (IN) | payer MEDICARE ==
[~2021-10-14] VITALS: Ht 180.3 cm; Wt 107.7 kg
[2021-10-14] VITALS (10 sets, daily range): BP systolic 101–116; BP diastolic 58–65
[~2021-10-14 14:21] MED LIST changes: -SULF500T5 PO; +VITA80009 PO; +[UNRECOGNIZED DRUG - CODE] PO
[2021-10-14] MEDS ORDERED: morphine INJ 4 MG/ML 1 ML (VIAL/SYRINGE) IV PRN (15:45)
[2021-10-14] MEDS ORDERED: polyethylene glycoL POWDER 17 GM (MIRALAX) PACK PO PRN (15:45)
[2021-10-14] MEDS ORDERED: ONDANSETRON 4 MG (ZOFRAN) ORAL DISSOLVE TAB PO PRN (15:45)
[2021-10-14] MEDS ORDERED: diphenhydrAMINE 25 MG TAB (BENADRYL) PO PRN (15:45)
[2021-10-14] MEDS ORDERED: LACTULOSE SYRUP 10GM/15ML (ENULOSE) 30ML UDC PO PRN (15:45)
[2021-10-14] MEDS ORDERED: ANTACID SUSP 30 ML UDC (MYLANTA) PO PRN (15:45)
[2021-10-14] MEDS ORDERED: MILK OF MAGNESIA 400 MG/5 ML 30 ML UDC PO PRN (15:45)
[2021-10-14] MEDS ORDERED: diphenhydrAMINE 50 MG/ML INJ (BENADRYL) IVP PRN (15:45)
[2021-10-14] MEDS ORDERED: ONDANSETRON 4 MG/2 ML (SDV) Z0FRAN IV PRN (15:45)
[2021-10-14] MEDS ORDERED: MELATONIN 3 MG TABLET PO PRN (15:45)
[2021-10-14] MEDS ORDERED: BISACODYL 10 MG SUPP (DULCOLAX) PR PRN (15:45)
[2021-10-14] MEDS ORDERED: NS IV 1000 ML 1,000 ML IV SCH (15:45)
[2021-10-14] MEDS ORDERED: CALCIUM CARBONATE 500 MG (TUMS) TAB.CHEW PO PRN (15:45)
--- NOTE | 2021-10-14 16:05 | Diagnostic Imaging Report ---
EXAMINATION: Abdominal series and chest radiograph HISTORY: Bloody stools COMPARISON: None available. FINDINGS: Heart size and pulmonary vasculature are normal. The lungs are clear without consolidation, pleural effusion, or pneumothorax. The osseous structures are intact. There is moderate amount of gas and stool throughout the colon. Nonobstructive bowel gas pattern. No radiopaque foreign body. The osseous structures are intact. IMPRESSION: No acute abnormality in the chest or abdomen. Dictated by: Dictated on workstation # [id number]
[2021-10-14 16:39] LABS: BASOPHILS # (AUTO) 0.1 10^3/uL (0.0-0.1); BASOPHILS % (AUTO) 1 % (0-10); EOSINOPHILS # (AUTO) 0.3 10^3/uL (0.0-0.3); EOSINOPHILS % (AUTO) 4 % (0-10); HEMATOCRIT 32 % (40-54); HEMOGLOBIN 11.1 g/dL (13.3-17.7); LYMPHOCYTES # (AUTO) 0.9 10^3/uL (1.0-4.0); LYMPHOCYTES % (AUTO) 9 % (12-44); MEAN CORPUSCULAR HEMOGLOBIN 29 pg (25-34); MEAN CORPUSCULAR HGB CONC 35 g/dL (32-36); MEAN CORPUSCULAR VOLUME 85 fL (80-99); MEAN PLATELET VOLUME 9.4 fL (9.0-12.2); MONOCYTES # (AUTO) 0.9 10^3/uL (0.0-1.0); MONOCYTES % (AUTO) 9 % (0-12); NEUTROPHILS # (AUTO) 7.4 10^3/uL (1.8-7.8); NEUTROPHILS % (AUTO) 76 % (42-75); PLATELET COUNT 194 10^3/uL (130-400); WHITE BLOOD COUNT 9.7 10^3/uL (4.3-11.0)
[2021-10-14 16:53] LABS: ALBUMIN 2.7 GM/DL (3.2-4.5); INR 1.2 (0.8-1.4)
[2021-10-14 16:54] LABS: ERYTHROCYTE SEDIMENTATION RATE 42 MM/HR (0-30); POTASSIUM 2.7 MMOL/L (3.6-5.0)
[2021-10-14 16:55] LABS: CALCIUM 7.4 MG/DL (8.5-10.1)
[2021-10-14 16:56] LABS: TOTAL PROTEIN 5.6 GM/DL (6.4-8.2)
[2021-10-14 16:58] LABS: BILIRUBIN,TOTAL 1.9 MG/DL (0.1-1.0)
[2021-10-14 17:00] LABS: CREATININE SERUM 0.7 MG/DL (0.60-1.30)
--- NOTE | 2021-10-14 17:29 | Progress Note ---
Progress Note Office visit 10/14/21: Pt is a 56 year old M presenting for diarrhea. Pt has been having severe diarrhea and it started before he saw Dr. Harrison. He thought it was salad he ate but it was not that. He does have blood in his stool. I stated he has a flare of his colitis. Pt stated that he has not been having any pain. It has been about three weeks and Le is worried he is dehydrated. He had a regular scope in May. He does think it is getting worse. He cannot control it and it happens anywhere. It has been a long time since he has needed any steroids. His last shot was about 3 months ago. Pt dec line dizziness. He has quite a bit of weight. He did have a temperature a few weeks ago, he usually runs low and so when he was at 100 that is high for him. His back has also been bothering him and he has been moving around slowly. Pt stated he has no abdomen pain. He has been confused as well. His hands are very shaky. I stated that we should put him in the hospital for fluids and labs. I will have Dr. Zepeda review everything. He just had blood work done on Monday. Pt started randomly bleeding but he did not know where it was coming from. Pt has been having a lot of headaches and has been taking Ibuprofen and that is the only thing that helps a really bad one. Physical Examination: I pushed in certain spots and there was no pain. He just had pain from his back. His mouth was dry. Labs: Nothing looked too off from 1 week ago. Scribed by: Eli Mccoy. Patient was admitted to 420 and lab report result revealed sodium 110 so moving to ICU and I called and updated her. DIANA BARRIGA DO Oct 14, 2021 17:29
[2021-10-14] MEDS ORDERED: MAGNESIUM 1 GM/100 ML IVPB 100 ML IV ONE (17:30)
[2021-10-14] MEDS ORDERED: SODIUM CHLORIDE 3% 500 ML IV SCH (17:30)
[2021-10-14] MEDS ORDERED: RT-ALBUTEROL SULF 2.5 MG/3 ML PRE-MIX VIAL INH PRN (18:00)
[2021-10-14] MEDS: NS IV 1000 ML 1,000 ML IV SCH (18:47)
[2021-10-14] MEDS: methylPREDNISolone 40 MG/ML (Solu-MEDROL) VIAL IV SCH ×2 (18:51→23:57)
[2021-10-14] MEDS: POTASSIUM CL 10MEQ/50ML IVPB 50 ML IV SCH ×4 (18:51→23:57)
--- NOTE | 2021-10-14 19:41 | Tele-ICU Consult ---
History of Present Illness History of Present Illness Date Seen by Provider: Oct 14, 2021 Time Seen by Provider: 19:36 History of Present Illness 56 yo M tranferred to MICU for Na 110, started on 3% and NS, repeat BMP pending Hx of ESLD, ammonia 67, pt is awake and alert, Also having some bloody diarrhea for last 3 weeks, Hx of colitis, Has been on steroids at times. C diff negative.also potassium 2.7, Mg 1.5 which are being replaced Allergies and Home Medications Allergies Coded Allergies: No Known Drug Allergies (Verified , 02/20/19) Home Medications Amlodipine Besylate 5 Mg Tablet, 5 MG PO DAILY, (Reported) Betamethasone/Propylene Glyc 15 Gm Cream..g., 1 APPLIC TOP BID PRN for ECZEMA, (Reported) Bisoprolol Fumarate 10 Mg Tablet, 10 MG PO DAILY, (Reported) Citalopram Hydrobromide 40 Mg Tablet, 40 MG PO DAILY, (Reported) Ergocalciferol (Vitamin D2) 1,250 Mcg Capsule, 1,250 MCG PO SAT @1200, (Reported) Lactulose 20 Gm/30 Ml Solution, 10 GM PO 5XD Prescribed by: DIANA BARRIGA on 03/31/21 1537 Magnesium Oxide 250 Mg Tablet, 500 MG PO BID, (Reported) TAKES 2 (250MG) TABS Omeprazole 40 Mg Capsule.dr, 40 MG PO DAILY, (Reported) Potassium Chloride 10 Meq Capsule.er, 10 MEQ PO 1200, (Reported) Rifaximin 550 Mg Tablet, 550 MG PO BID, (Reported) Spironolactone 25 Mg Tablet, 50 MG PO DAILY, (Reported) TAKES 2 (25MG) TABS Sulfasalazine 500 Mg Tablet, 3,000 MG PO HS, (Reported) TAKES 6 (500MG) TABS Vitamin A 2,400 Mcg Capsule, 2,400 MCG PO 1200, (Reported) Past Medical/Social/Family Hx Patient Social History Tobacco Use?: No Use of E-Cig and/or Vaping dev: No Substance use?: No Alcohol Use?: No Pt stated abuse/neglect: No Immunizations Up To Date Influenza Vaccine Up-to-Date: Yes; Up-to-Date First/Initial COVID19 Vaccinat: OCTOBER Second COVID19 Vaccination Yair: NOV Tetanus Booster (TDap): Unknown Hepatitis A: No Hepatitis B: No TB Skin Test: None Current Status Advance Directives: Yes Advance Directive Location: Copy from prev record Communicates: Verbally Primary Language: Zambian Preferred Spoken Language: Zambian Is interpretation needed?: No Sensory deficits: Vision impairment Implanted or Applied Medical D: None Review of Systems Constitutional: see HPI EENTM: see HPI Respiratory: see HPI Cardiovascular: see HPI Gastrointestinal: see HPI Genitourinary: see HPI Musculoskeletal: see HPI Skin: see HPI Psychiatric/Neurological: See HPI Focused Exam Lactate Level 10/14/21 16:24: Lactic Acid Level 1.34 Height, Weight, BMI Height: 5'10.00" Weight: 289lbs. 0.0oz. 131.593159nc; 33.13 BMI Method:Stated Lactic Acid Level Laboratory Tests Test 10/14/21 16:24 Lactic Acid Level 1.34 MMOL/L (0.50-2.00) Exam Exam Patient acknowledged, consented, and participated in this virtual visit which was conducted using real time audio/video Vital Signs Date Time Temp Pulse Resp B/P (MAP) Pulse Ox O2 Delivery O2 Flow Rate FiO2 10/14/21 19:27 36.7 70 18 112/62 (79) 98 Room Air 10/14/21 18:15 68 8 116/64 (81) 98 Room Air 10/14/21 18:00 110/61 (77) Room Air 10/14/21 17:50 Room Air 10/14/21 17:35 70 10/14/21 16:34 36.7 70 95 21 10/14/21 16:22 36.7 70 18 114/58 (76) 95 Room Air Height & Weight Height: 5'10.00" Weight: 289lbs. 0.0oz. [id number]; 33.13 BMI Method:Stated General Appearance: No Apparent Distress, WD/WN Respiratory: Lungs Clear, Normal Breath Sounds Cardiovascular: Regular Rate, Rhythm, No Edema Gastrointestinal: normal bowel sounds, non tender, soft, no organomegaly Extremity: No Pedal Edema Neurologic/Psychiatric: Alert, Oriented x3 Results Lab Laboratory Tests 10/14/21 16:24 Assessment/Plan Assessment/Plan will aim for slow rise in Na, 0.25 Meq/h, check CMP at 2000, continue saline,wait for C diff morphine for chronic back pain, 12/08 lactulose for ESLD Critical Care: Critically Ill Patient ODALYS BALTAZAR MD Oct 14, 2021 19:41
[2021-10-14] MEDS: SENNOSIDES 8.6 MG (SENOKOT) TAB PO SCH (20:36)
[2021-10-14] MEDS: DOCUSATE SODIUM 100 MG (COLACE) CAP PO SCH (20:36)
[2021-10-14 21:30] LABS: CALCIUM 8.1 MG/DL (8.5-10.1)
[2021-10-14 21:34] LABS: CREATININE SERUM 0.76 MG/DL (0.60-1.30); PHOSPHORUS 1.8 MG/DL (2.3-4.7)
[2021-10-14 21:37] LABS: MAGNESIUM 1.8 MG/DL (1.6-2.4)
[2021-10-14 22:08] LABS: POTASSIUM 3.3 MMOL/L (3.6-5.0)
[2021-10-14 22:09] LABS: CALCIUM 8.2 MG/DL (8.5-10.1)
[2021-10-14 22:14] LABS: CREATININE SERUM 0.73 MG/DL (0.60-1.30)
--- NOTE | 2021-10-14 22:19 | Progress Note ---
Standard Progress Note Progress Notes/Assess & Plan Date Seen by a Provider: Oct 14, 2021 Time Seen by a Provider: 22:18 Progress/Assessment & Plan Pt had Na 110, put on 3%, repeat 2 h later, 135, repeated again 136, I suspect 110 was an error, 3 % stopped, Pt has normal mental status MD GIOVANNY Collado JOSEPH K MD Oct 14, 2021 22:19
--- NOTE | 2021-10-14 22:56 | Consultation - Surgery ---
History of Present Illness History of Present Illness Patient Consulted On(sindhu/time) 10/14/21 22:41 Date Seen by Provider: Oct 14, 2021 Time Seen by Provider: 20:43 History of Present Illness Consult requested by Dr. Barriga for diarrhea. Patient is a 56-year-old male with history of Crohn's. Patient has had 3 weeks of diarrhea. Just recently returned to having bloody diarrhea. Patient having multiple stools per day. I really have no abdominal pain or discomfort he states. Patient does report his chronic back pain which she states is 8 out of 10. Nothing seems to make it better or worse. 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 Abdominal x-ray is which were unremarkable. Patient labs demonstrate electrolyte imbalances. Patient was transferred to the ICU where he is at currently well on visiting him. Patient with no other complaints at this time. Allergies and Home Medications Allergies Coded Allergies: No Known Drug Allergies (Verified , 02/20/19) Patient Home Medication List Home Medication List Reviewed: Yes Amlodipine Besylate (Amlodipine Besylate) 5 Mg Tablet, 5 MG PO DAILY, (Reported) Entered as Reported by: ARGENTINA LATHAM on 07/02/18 1639 Betamethasone/Propylene Glyc (Betamethasone Dp Aug 0.05% Crm) 15 Gm Cream..g., 1 APPLIC TOP BID PRN for ECZEMA, (Reported) Entered as Reported by: ИВАН MCGHEE on 03/31/21 1032 Bisoprolol Fumarate (Bisoprolol Fumarate) 10 Mg Tablet, 10 MG PO DAILY, (Reported) Entered as Reported by: ARGENTINA LATHAM on 07/02/18 1639 Citalopram Hydrobromide (Citalopram HBr) 40 Mg Tablet, 40 MG PO DAILY, (Reported) Entered as Reported by: ИВАН MCGHEE on 01/23/20 1656 Ergocalciferol (Vitamin D2) (Vitamin D2) 1,250 Mcg Capsule, 1,250 MCG PO SAT @1200, (Reported) Entered as Reported by: ИВАН MCGHEE on 06/22/20 0911 Lactulose (Lactulose) 20 Gm/30 Ml Solution, 10 GM PO 5XD Prescribed by: DIANA BARRIGA on 03/31/21 1537 Magnesium Oxide (Magnesium Oxide) 250 Mg Tablet, 500 MG PO BID, (Reported) Entered as Reported by: ИВАН MCGHEE on 03/31/21 1032 Omeprazole (Omeprazole) 40 Mg Capsule.dr, 40 MG PO DAILY, (Reported) Entered as Reported by: ARGENTINA LATHAM on 07/02/18 1639 Potassium Chloride (Potassium Chloride) 10 Meq Capsule.er, 10 MEQ PO 1200, (Reported) Entered as Reported by: ИВАН MCGHEE on 01/23/20 1656 Rifaximin (Xifaxan) 550 Mg Tablet, 550 MG PO BID, (Reported) Entered as Reported by: ARGENTINA LATHAM on 07/02/18 1639 Spironolactone (Spironolactone) 25 Mg Tablet, 50 MG PO DAILY, (Reported) Entered as Reported by: GERALD GROVE on 05/28/17 1451 Sulfasalazine (Sulfasalazine) 500 Mg Tablet, 3,000 MG PO HS, (Reported) Entered as Reported by: ИВАН MCGHEE on 01/23/20 1656 Vitamin A (Vitamin A) 2,400 Mcg Capsule, 2,400 MCG PO 1200, (Reported) Entered as Reported by: ИВАН MCGHEE on 03/31/21 1032 Past Fqtlfit-Wrhbcv-Uddorq Hx Patient Social History Former Smoker, Quit: May 01, 2015 Type Used: Cigarettes 2nd Hand Smoke Exposure: No Recent Hopitalizations: No Alcohol Use?: No Have you traveled recently?: No Immunizations Up To Date Tetanus Booster (TDap): Unknown Date of Influenza Vaccine: Dec 30, 2020 Seasonal Allergies Seasonal Allergies: No Surgeries History of Surgeries: Yes (colonoscopies) Respiratory History of Respiratory Disorde: No Respiratory Disorders: COPD Cardiovascular History of Cardiac Disorders: Yes Cardiac Disorders: Deep Vein Thrombosis Neurological History of Neurological Disord: Yes (hepatic encephalopathy) Reproductive System Sexually Transmitted Disease: No HIV/AIDS: No Genitourinary History of Genitourinary Disor: No Gastrointestinal History of Gastrointestinal Di: Yes Gastrointestinal Disorders: Crohns Disease, Esophageal Varices, Cirrhosis Musculoskeletal History of Musculoskeletal Dis: Yes Musculoskeletal Disorders: Arthritis Endocrine History of Endocrine Disorders: Yes Endocrine Disorders: Diabetes, Insulin dep HEENT History of HEENT Disorders: Yes (decreased and wears glasses) Loss of Vision: Bilateral Hearing Impairment: Hard of Hearing Cancer History of Cancer: No Psychosocial History of Psychiatric Problem: Yes Behavioral Health Disorders: Anxiety Integumentary History of Skin or Integumenta: Yes Skin/Integumentary Disorders: Psoriasis Blood Transfusions History of Blood Disorders: No Adverse Reaction to a Blood Tr: No (N/A) Reviewed Nursing Assessment Reviewed/Agree w Nursing PMH: Yes Family Medical History Significant Family History: CAD Over 55 Years Old, Diabetes, Hypertension Family Medial History: Cardiovascular disease 19 FATHER Diabetes mellitus 19 FATHER FH: hypertension 19 MOTHER Myocardial infarction 19 FATHER 19 MOTHER G8 BROTHER Review of Systems-General Constitutional: No diaphoresis, No weakness EENTM: No blurred vision, No double vision, No mouth swelling Respiratory: No cough, No dyspnea on exertion Cardiovascular: No chest pain, No palpitations Gastrointestinal: No abdominal pain; diarrhea (Bloody); No nausea, No vomiting Genitourinary: No decreased output, No discharge Musculoskeletal: back pain (Chronic); No joint pain Skin: No change in color, No change in hair/nails Psychiatric/Neurological: Denies Anxiety, Denies Depressed, Denies Emotional Problems All Other Systems Reviewed Negative Unless Noted: Yes (Negative excepted noted.) Physical Exam-General Problems Physical Exam Vital Signs Vital Signs - First Documented 10/14/21 10/14/21 16:22 16:34 Temp 36.7 Pulse 70 Resp 18 B/P (MAP) 114/58 (76) Pulse Ox 95 O2 Delivery Room Air FiO2 21 Capillary Refill : General Appearance: WD/WN, no apparent distress HEENT: PERRL/EOMI, normal ENT inspection Neck: non-tender, supple Respiratory: chest non-tender, no respiratory distress, no accessory muscle use Cardiovascular: regular rate, rhythm, no JVD Gastrointestinal: non tender, soft, other (Multiple lipomas on abdomen) Rectal: deferred (At this time) Back: normal inspection, no CVA tenderness Extremities: non-tender, normal inspection Neurologic/Psychiatric: alert, normal mood/affect, oriented x 3 Skin: normal color, warm/dry Lymphatic: no adenopathy Data Review Labs Laboratory Tests 10/14/21 14:16: Magnesium Level 1.5L 10/14/21 15:50: Stool Occult Blood Immunoassay POSITIVEH 10/14/21 16:24: White Blood Count 9.7, Red Blood Count 3.78L, Hemoglobin 11.1L, Hematocrit 32L, Mean Corpuscular Volume 85, Mean Corpuscular Hemoglobin 29, Mean Corpuscular Hemoglobin Concent 35, Red Cell Distribution Width 16.0H, Platelet Count 194, Mean Platelet Volume 9.4, Immature Granulocyte % (Auto) 2, Neutrophils (%) (Auto) 76H, Lymphocytes (%) (Auto) 9L, Monocytes (%) (Auto) 9, Eosinophils (%) (Auto) 4, Basophils (%) (Auto) 1, Neutrophils # (Auto) 7.4, Lymphocytes # (Auto) 0.9L, Monocytes # (Auto) 0.9, Eosinophils # (Auto) 0.3, Basophils # (Auto) 0.1, Immature Granulocyte # (Auto) 0.2H, Erythrocyte Sedimentation Rate 42H, Prothrombin Time 16.0H, INR Comment 1.2, Activated Partial Thromboplast Time 46H , Sodium Level 110*L, Potassium Level 2.7L, Chloride Level 85L, Carbon Dioxide Level 16L, Anion Gap 9, Blood Urea Nitrogen 9, Creatinine 0.70, Estimat Glomerular Filtration Rate 109, BUN/Creatinine Ratio 13, Glucose Level 90, Lactic Acid Level 1.34, Calcium Level 7.4L, Corrected Calcium 8.4L, Total Bilirubin 1.9H, Aspartate Amino Transf (AST/SGOT) 50H, Alanine Aminotransferase (ALT/SGPT) 27, Alkaline Phosphatase 309H, Ammonia 67H, Total Protein 5.6L, Albumin 2.7L 10/14/21 21:08: Magnesium Level 1.8, Sodium Level 135, Potassium Level 3.0L, Chloride Level 104, Carbon Dioxide Level 21, Anion Gap 10, Blood Urea Nitrogen 9, Creatinine 0.76, Estimat Glomerular Filtration Rate 106, BUN/Creatinine Ratio 12, Glucose Level 103, Calcium Level 8.1L, Phosphorus Level 1.8L 10/14/21 21:45: Sodium Level 136, Potassium Level 3.3L, Chloride Level 106, Carbon Dioxide Level 19L, Anion Gap 11, Blood Urea Nitrogen 10, Creatinine 0.73, Estimat Glomerular Filtration Rate 107, BUN/Creatinine Ratio 14, Glucose Level 108H, Calcium Level 8.2L Microbiology 10/14/21 C. difficile GDH Antigen & Toxins - Final, Resulted 10/14/21 Stool Culture, Resulted Pending Assessment/Plan Assessment/Plan Assessment/Plan Bloody diarrhea Crohn's Electrolyte abnormalities Patient started on Solu-Medrol for likely Crohn's exacerbation. Clear liquids Follow hemoglobin/labs. Transfuse PRBC as needed Replace electrolytes Clinical Quality Measures DVT/VTE Risk/Contraindication: Contraindications-Pharm: Other *list below* Other: BERNICE Corey DO Oct 14, 2021 22:56
[2021-10-15] VITALS (14 sets, daily range): BP systolic 98–125; BP diastolic 51–67
[2021-10-15 04:36] LABS: HEMATOCRIT 31 % (40-54); HEMOGLOBIN 10.6 g/dL (13.3-17.7); MEAN CORPUSCULAR HEMOGLOBIN 28 pg (25-34); MEAN CORPUSCULAR HGB CONC 34 g/dL (32-36); MEAN CORPUSCULAR VOLUME 84 fL (80-99); MEAN PLATELET VOLUME 9.7 fL (9.0-12.2); PLATELET COUNT 168 10^3/uL (130-400); WHITE BLOOD COUNT 7.7 10^3/uL (4.3-11.0)
[2021-10-15 04:50] LABS: ALBUMIN 2.7 GM/DL (3.2-4.5); POTASSIUM 3.5 MMOL/L (3.6-5.0)
[2021-10-15 04:51] LABS: CALCIUM 8.1 MG/DL (8.5-10.1)
[2021-10-15 04:52] LABS: TOTAL PROTEIN 5.6 GM/DL (6.4-8.2)
[2021-10-15 04:54] LABS: BILIRUBIN,TOTAL 1.8 MG/DL (0.1-1.0)
[2021-10-15 04:56] LABS: CREATININE SERUM 0.8 MG/DL (0.60-1.30)
[2021-10-15 04:59] LABS: MAGNESIUM 1.8 MG/DL (1.6-2.4)
[2021-10-15] MEDS ORDERED: MAGNESIUM 1 GM/100 ML IVPB 100 ML IV SCH (06:00)
[2021-10-15] MEDS ORDERED: POTASSIUM CL 10MEQ/50ML IVPB 50 ML IV SCH (06:00)
[2021-10-15] MEDS ORDERED: KCL 20 MEQ TAB (K-DUR) PO SCH (06:00)
--- NOTE | 2021-10-15 06:17 | History & Physical ---
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 Chatterjee who presented with bloody stools and diarrhea and dehydration. Placed on 4th floor but Sodium level came back 110 so he was moved up to ICU. Hypertonic Saline and regular saline for fluid resuscitation initiated. Sodium level returned back to 134 currently. He is doing much better. PT/OT ordered. at the bedside. No more bloody stools or diarrhea. Dr. Zepeda has seen him and is advancing his diet. Source: patient Exam Limitations: no limitations Date Seen 10/15/21 Time Seen by a Provider: 10:30 Attending Physician Ivonne Casas DO PCP Admitting Physician: Ivonne Casas DO Attending Physician: Ivonne Casas DO Referring Physician Date of Admission Oct 14, 2021 at 20:25 Home Medications & Allergies Home Medications Reviewed patient Home Medication Reconciliation performed by pharmacy medication reconciliations waste handling technician and/or nursing. Patients Allergies have been reviewed. Allergies Allergies Coded Allergies No Known Drug Allergies ([id number]) Past Oibqbvt-Jjvnwp-Finocd Hx Past Med/Social Hx: Reviewed Nursing Past Med/Soc Hx, Reviewed and Corrections made Patient Social History Marrital Status: Employed/Student: retired Alcohol Use: Denies Use Smoking Status: Former Smoker Former Smoker, Quit: May 01, 2015 Type Used: Cigarettes 2nd Hand Smoke Exposure: No Recent Foreign Travel: No Contact w/other who traveled: No Recent Hopitalizations: No Immunizations Up To Date Tetanus Booster (TDap): Unknown Date of Influenza Vaccine: Dec 30, 2020 Seasonal Allergies Seasonal Allergies: No Past Medical History Fatty tumor removal from arms, R ulnar transposition Respiratory: Sleep Apnea Currently Using CPAP: Yes Cardiac: Deep Vein Thrombosis, High Cholesterol, Hypertension Sexually Transmitted Disease: No HIV/AIDS: No Gastrointestinal: Crohns Disease, Esophageal Varices, Cirrhosis Musculoskeletal: Arthritis Endocrine: Diabetes, Insulin dep Loss of Vision: Bilateral Hearing Impairment: Hard of Hearing Psychosocial: Anxiety Skin/Integumentary: Psoriasis History of Blood Disorders: No Adverse Reaction to Blood Jackson: No (N/A) Family History Cardiovascular disease 19 FATHER Diabetes mellitus 19 FATHER FH: hypertension 19 MOTHER Myocardial infarction 19 FATHER 19 MOTHER G8 BROTHER CAD Over 55 Years Old, Diabetes, Hypertension Review of Systems Constitutional: see HPI, malaise, weakness EENTM: no symptoms reported Respiratory: no symptoms reported Cardiovascular: no symptoms reported Gastrointestinal: loss of appetite, melena, nausea Genitourinary: decreased output Musculoskeletal: no symptoms reported Skin: no symptoms reported All Other Systems Reviewed Negative Unless Noted: Yes Physical Exam Physical Exam Vital Signs Vital Signs - First Documented 10/14/21 10/14/21 16:22 16:34 Temp 36.7 Pulse 70 Resp 18 B/P (MAP) 114/58 (76) Pulse Ox 95 O2 Delivery Room Air FiO2 21 Capillary Refill : Height, Weight, BMI Height: 5'10.00" Weight: 289lbs. 0.0oz. 131.054338ni; 33.13 BMI Method:Stated General Appearance: No Apparent Distress, WD/WN, Chronically ill Respiratory: Chest Non Tender, Lungs Clear, Normal Breath Sounds, No Accessory Muscle Use, No Respiratory Distress Cardiovascular: Regular Rate, Rhythm, No Edema Extremity: No Pedal Edema Neurologic/Psychiatric: Alert, Oriented x3 Results Results/Procedures Labs Laboratory Tests 10/14/21 16:24 10/14/21 21:08 10/14/21 21:45 10/15/21 04:27 Patient resulted labs reviewed. Assessment/Plan Admission Diagnosis Assessment: GI bleed Hyponatremia 110 but possible incorrect lab value? 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
[2021-10-15] MEDS: methylPREDNISolone 40 MG/ML (Solu-MEDROL) VIAL IV SCH ×4 (06:40→23:33)
[2021-10-15] MEDS: NS IV 1000 ML 1,000 ML IV SCH ×2 (06:40→22:36)
[2021-10-15] MEDS: POTASSIUM CL 10MEQ/50ML IVPB 50 ML IV SCH ×2 (06:41→07:42)
[2021-10-15] MEDS: SENNOSIDES 8.6 MG (SENOKOT) TAB PO SCH ×2 (09:02→20:47)
[2021-10-15] MEDS: DOCUSATE SODIUM 100 MG (COLACE) CAP PO SCH ×2 (09:02→20:47)
[2021-10-15] MEDS: PANTOPRAZOLE 40 MG (PROTONIX) VIAL IV SCH (09:02)
[2021-10-15] MEDS ORDERED: SPIR50TA4 PO (09:44)
[2021-10-15] MEDS ORDERED: FURO40TA4 PO (09:44)
[2021-10-15] MEDS ORDERED: MAGN400T7 PO (09:44)
--- NOTE | 2021-10-15 10:31 | Progress Note - Surgery ---
Subjective Date Seen by a Provider: Oct 15, 2021 Time Seen by a Provider: 10:28 Subjective/Events-last exam Feeling better. Less diarrhea. Tolerating clears. Denies n/v fever sweats chills shortness of breath or chest pain. Hgb 10.6. Focused Exam Lactate Level 10/14/21 16:24: Lactic Acid Level 1.34 Objective Exam Vital Signs Date Time Temp Pulse Resp B/P (MAP) Pulse Ox O2 Delivery O2 Flow Rate FiO2 10/15/21 09:00 67 10 106/51 (69) 98 Room Air 10/15/21 08:00 95 Room Air 10/15/21 08:00 35.9 10/15/21 08:00 68 13 103/54 (70) 97 Room Air 10/15/21 07:00 66 10/15/21 07:00 58 7 101/52 (68) 97 Room Air 10/15/21 06:00 70 14 102/67 (79) 97 Room Air 10/15/21 05:00 65 17 103/58 (73) 92 Room Air 10/15/21 04:00 98 NIV CPAP 21 10/15/21 04:00 66 13 98/57 (71) 96 Room Air 10/15/21 03:43 36.2 10/15/21 03:00 68 14 102/62 (75) 96 Room Air 10/15/21 02:00 63 12 112/60 (77) 96 Room Air 10/15/21 01:00 65 14 107/58 (74) 95 Room Air 10/15/21 01:00 67 10/15/21 00:00 66 14 109/62 (78) 96 Room Air 10/15/21 00:00 97 NIV CPAP 21 10/14/21 23:30 36.4 10/14/21 23:00 69 14 113/62 (79) 96 Room Air 10/14/21 22:00 68 15 107/60 (76) 95 Room Air 10/14/21 21:00 65 15 112/65 (81) 96 Room Air 10/14/21 20:00 67 14 101/64 (76) 96 Room Air 10/14/21 20:00 98 Room Air 10/14/21 19:27 36.7 70 18 112/62 (79) 98 Room Air 10/14/21 19:00 71 10/14/21 19:00 71 16 112/62 (79) 98 Room Air 10/14/21 18:15 68 8 116/64 (81) 98 Room Air 10/14/21 18:00 110/61 (77) Room Air 10/14/21 18:00 98 Room Air 10/14/21 17:50 Room Air 10/14/21 17:35 70 10/14/21 16:34 36.7 70 95 21 10/14/21 16:22 36.7 70 18 114/58 (76) 95 Room Air I & O 10/15/21 06:59 Intake Total 550 ml Output Total 500 ml Balance 50 ml Capillary Refill : General Appearance: No Apparent Distress, WD/WN HEENT: PERRL/EOMI, Normal ENT Inspection Neck: Normal Inspection, Non Tender Respiratory: Chest Non Tender, No Accessory Muscle Use, No Respiratory Distress Cardiovascular: Regular Rate, Rhythm, No JVD Gastrointestinal: non tender, soft, other (Multiple lipomas on abdomen) Extremity: Normal Inspection, No Pedal Edema Neurologic/Psychiatric: Alert, Oriented x3, Normal Mood/Affect Skin: Normal Color, Warm/Dry Lymphatic: No Adenopathy Results Lab Laboratory Tests 10/14/21 14:16: Magnesium Level 1.5L 10/14/21 15:50: Stool Occult Blood Immunoassay POSITIVEH 10/14/21 16:24: White Blood Count 9.7, Red Blood Count 3.78L, Hemoglobin 11.1L, Hematocrit 32L, Mean Corpuscular Volume 85, Mean Corpuscular Hemoglobin 29, Mean Corpuscular Hemoglobin Concent 35, Red Cell Distribution Width 16.0H, Platelet Count 194, Mean Platelet Volume 9.4, Immature Granulocyte % (Auto) 2, Neutrophils (%) (Auto) 76H, Lymphocytes (%) (Auto) 9L, Monocytes (%) (Auto) 9, Eosinophils (%) (Auto) 4, Basophils (%) (Auto) 1, Neutrophils # (Auto) 7.4, Lymphocytes # (Auto) 0.9L, Monocytes # (Auto) 0.9, Eosinophils # (Auto) 0.3, Basophils # (Auto) 0.1, Immature Granulocyte # (Auto) 0.2H, Erythrocyte Sedimentation Rate 42H, Prothrombin Time 16.0H, INR Comment 1.2, Activated Partial Thromboplast Time 46H , Sodium Level 110*L, Potassium Level 2.7L, Chloride Level 85L, Carbon Dioxide Level 16L, Anion Gap 9, Blood Urea Nitrogen 9, Creatinine 0.70, Estimat Glomerular Filtration Rate 109, BUN/Creatinine Ratio 13, Glucose Level 90, Lactic Acid Level 1.34, Calcium Level 7.4L, Corrected Calcium 8.4L, Total Bilirubin 1.9H, Aspartate Amino Transf (AST/SGOT) 50H, Alanine Aminotransferase (ALT/SGPT) 27, Alkaline Phosphatase 309H, Ammonia 67H, Total Protein 5.6L, Albumin 2.7L 10/14/21 21:08: Magnesium Level 1.8, Sodium Level 135, Potassium Level 3.0L, Chloride Level 104, Carbon Dioxide Level 21, Anion Gap 10, Blood Urea Nitrogen 9, Creatinine 0.76, Estimat Glomerular Filtration Rate 106, BUN/Creatinine Ratio 12, Glucose Level 103, Calcium Level 8.1L, Phosphorus Level 1.8L 10/14/21 21:45: Sodium Level 136, Potassium Level 3.3L, Chloride Level 106, Carbon Dioxide Level 19L, Anion Gap 11, Blood Urea Nitrogen 10, Creatinine 0.73, Estimat Glomerular Filtration Rate 107, BUN/Creatinine Ratio 14, Glucose Level 108H, Calcium Level 8.2L 10/15/21 04:27: Sodium Level 134L, Potassium Level 3.5L, Chloride Level 106, Carbon Dioxide Level 16L, Anion Gap 12, Blood Urea Nitrogen 13, Creatinine 0.80, Estimat Glomerular Filtration Rate 105, BUN/Creatinine Ratio 16, Glucose Level 163H, Calcium Level 8.1L, White Blood Count 7.7, Red Blood Count 3.73L, Hemoglobin 10.6L, Hematocrit 31L, Mean Corpuscular Volume 84, Mean Corpuscular Hemoglobin 28, Mean Corpuscular Hemoglobin Concent 34, Red Cell Distribution Width 15.5H, Platelet Count 168, Mean Platelet Volume 9.7, Corrected Calcium 9.1, Phosphorus Level 3.0, Magnesium Level 1.8, Total Bilirubin 1.8H, Aspartate Amino Transf (AST/SGOT) 40H, Alanine Aminotransferase (ALT/SGPT) 25, Alkaline Phosphatase 306H, Total Protein 5.6L, Albumin 2.7L Microbiology 10/14/21 C. difficile GDH Antigen & Toxins - Final, Resulted 10/14/21 Stool Culture, Resulted Pending Assessment/Plan Assessment/Plan Assessment/Plan Bloody diarrhea Ulcerative colitis Electrolyte abnormalities Patient started on Solu-Medrol for likely UC exacerbation. Clear liquids advance as tolerates Follow hemoglobin/labs. Transfuse PRBC as needed follow hgb Replace electrolytes as needed Clinical Quality Measures DVT/VTE Risk/Contraindication: Contraindications-Pharm: Other *list below* Other: BERNICE Corey DO Oct 15, 2021 10:31
--- NOTE | 2021-10-15 11:58 | Physical Therapy Evaluation ---
PT Evaluation-General Medical Diagnosis Admission Date Oct 14, 2021 at 20:25 Medical Diagnosis: diarrhea Onset Date: Oct 14, 2021 Therapy Diagnosis Therapy Diagnosis: debility/weakness Height/Weight Height (Feet): 5 Height (Inches): 10.00 Weight (Pounds): 289 Weight (Ounces): 0.0 Precautions Precautions/Isolations: Fall Prevention, Standard Precautions Referral Physician: Augusto Reason for Referral: Evaluation/Treatment Medical History Pertinent Medical History: DM, HTN Additional Medical History cirrhosis/Crohn's Current History direct admit secondary to abnormal labs Reviewed History: Yes Social History Home: Single Level Current Living Status: Spouse Entry Into Home: Level Entry Prior Prior Level of Function SCALE: Activities may be completed with or without assistive devices. 1-Vsegenvvnj-hmhipkw completes the activity by him/herself with no assistance from a helper. 5-Set-up or Clean-up Assistance-helper sets up or cleans up; patient completes activity. [place] assists only prior to or following the activity. 4-Supervision or Touching Assistance-helper provides verbal cues and/or touching/steadying and/or contact guard assistance as patient completes activity. Assistance may be provided throughout the activity or intermittently. 3-Partial/Moderate Assistance-helper does LESS THAN HALF the effort. [place] lifts, holds or supports trunk or limbs, but provides less than half the effort. 2-Substantial/Maximal Assistance-helper does MORE THAN HALF the effort. [place] lifts or holds trunk or limbs and provides more than half the effort. 7-Tgzfjhhrt-iaptlq does ALL the effort. Patient does none of the effort to complete the activity. Or, the assistance of 2 or more helpers is required for the patient to complete the activity. If activity was not attempted, code reason: 7-Patient Refused. 9-Not Applicable-not attempted and the patient did not perform the activity before the current illness, exacerbation or injury. 10-Not Attempted due to Environmental Limitations-(lack of equipment, weather restraints, etc.). 88-Not Attempted due to Medical Conditions or Safety Concerns. Bed Mobility: 6 Transfers (B,C,W/C): 6 Gait: 6 Stairs: 6 Indoor Mobility (Ambulation): Independent Stairs: Independent Prior Devices Use: Walker (4WW PRN) Prior Device Use: cane PT Evaluation-Current Subjective Patient agrees to PT. Objective Patient Orientation: Normal For Age ROM/Strength ROM Lower Extremities bilateral LE WFL Strength Lower Extremities 4/5 grossly bilateral LE Integumentary/Posture Bowel Incontinence: No Bladder Incontinence: No Posture WFL Neuromuscular (Tone, Coordination, Reflexes) grossly intact Sensory Vision: Wears Glasses Hearing: Functional Transfers Lying to Sitting/Side of Bed(Q: 6 Sit to Stand (QC): 6 Chair/Vmh-dk-Uwqst Xfer(QC): 6 Gait Does the Patient Walk?: Yes Mode of Locomotion: Walk Anticipated Mode of Locomotion: Walk Walk 10 feet (QC): 6 Walk 50 ft with 2 Turns(QC): 6 Walk 150 ft (QC): 6 Distance: 400' Gait Assistive Device: Cane Single Point Comments/Gait Description safe and functional with no deviation Balance Sitting Static: Normal Sitting Dynamic: Normal Standing Static: Normal Standing Dynamic: Normal Assessment/Needs 56 y.o. male, is currently at independent [facility] with all gross motor skills and does not require skilled PT intervention. Rehab Potential: Fair PT Plan Treatment/Plan Treatment Plan: Discontinue PT, goals met Treatment Duration: Oct 15, 2021 Frequency: 1 time per week Estimated Hrs Per Day: .25 hour per day Patient and/or Family Agrees t: Yes Time/GCodes Time In: 1124 Time Out: 1134 Total Billed Treatment Time: 10 Total Billed Treatment 1 visit EVModC 10 min RYDER MEDEIROS PT Oct 15, 2021 11:58
--- NOTE | 2021-10-15 13:23 | Occ Therapy Progress Note ---
Therapy Progress Note OT orders recived and chart reviewed. OT visited with pt, he is currently IND in eating and footwear. Pt declines other ADLs at this time, but has no concerns with his ability to complete ADLs, and feels like he is at his PLOF. Per PT report, pt can independently ambulate 600' with SPC. No skilled OT services because pt is IND with ADLs and at his PLOF. D/C from OT. 1, visit 13:01 MALACHI MARQUEZ OT Oct 15, 2021 13:23
[2021-10-15] MEDS ORDERED: CATHETER FLUSH 10 ML SYR IVP PRN (18:15)
[2021-10-15] MEDS: MAGNESIUM OXIDE (MAG-OX)400 MG TAB PO SCH (22:36)
[2021-10-15] MEDS: sulfaSALAzine 500 MG (AZULFIDINE) TAB PO SCH (22:36)
[2021-10-15] MEDS: RIFAXIMIN 550 MG TABLET (XIFAXAN) PO SCH (22:36)
[2021-10-16 03:35] VITALS: BP 105/59
[2021-10-16 05:00] LABS: HEMATOCRIT 28 % (40-54); HEMOGLOBIN 9.6 g/dL (13.3-17.7); MEAN CORPUSCULAR HEMOGLOBIN 29 pg (25-34); MEAN CORPUSCULAR HGB CONC 35 g/dL (32-36); MEAN CORPUSCULAR VOLUME 84 fL (80-99); MEAN PLATELET VOLUME 9.7 fL (9.0-12.2); PLATELET COUNT 156 10^3/uL (130-400); WHITE BLOOD COUNT 9.9 10^3/uL (4.3-11.0)
[2021-10-16 05:20] LABS: ALBUMIN 2.6 GM/DL (3.2-4.5); POTASSIUM 3.5 MMOL/L (3.6-5.0)
[2021-10-16 05:22] LABS: CALCIUM 7.8 MG/DL (8.5-10.1)
[2021-10-16 05:23] LABS: TOTAL PROTEIN 5.2 GM/DL (6.4-8.2)
[2021-10-16 05:25] LABS: BILIRUBIN,TOTAL 0.9 MG/DL (0.1-1.0)
[2021-10-16 05:26] LABS: CREATININE SERUM 0.82 MG/DL (0.60-1.30)
[2021-10-16 05:29] LABS: MAGNESIUM 1.8 MG/DL (1.6-2.4)
[2021-10-16] MEDS: methylPREDNISolone 40 MG/ML (Solu-MEDROL) VIAL IV SCH ×2 (05:57→20:21)
--- NOTE | 2021-10-16 06:07 | Progress Note ---
Subjective Date Seen by a Provider: Oct 16, 2021 Time Seen by a Provider: 09:00 Subjective/Events-last exam Patient doing well Moving down to fourth floor Decreasing IV steroids to every 12 hours instead of every 6 hours No more bloody diarrhea Hep locking IV fluid We will ambulate today Discharge tomorrow likely Review of Systems General: Fatigue, Malaise Focused Exam Lactate Level 10/14/21 16:24: Lactic Acid Level 1.34 Objective Exam Last Set of Vital Signs Vital Signs Date Time Temp Pulse Resp B/P (MAP) Pulse Ox O2 Delivery O2 Flow Rate FiO2 10/16/21 03:35 99 NIV CPAP 10/16/21 03:35 36.1 68 18 105/59 (74) 10/15/21 04:00 21 Capillary Refill : I&O Intake and Output 10/16/21 00:00 Intake Total 3050 ml Output Total 0 ml Balance 3050 ml Intake Oral 1950 ml IV Total 1100 ml Output Urine Total 0 ml # Voids 8 # Bowel Movements 2 General: Alert, Oriented X3, Cooperative, No Acute Distress Lungs: Clear to Auscultation, Normal Air Movement Heart: Regular Rate, Normal S1, Normal S2, No Murmurs Psych/Mental Status: Mental Status NL, Mood NL Results Lab Laboratory Tests 10/16/21 04:45: White Blood Count 9.9, Red Blood Count 3.27L, Hemoglobin 9.6L, Hematocrit 28L, Mean Corpuscular Volume 84, Mean Corpuscular Hemoglobin 29, Mean Corpuscular Hemoglobin Concent 35, Red Cell Distribution Width 15.2H, Platelet Count 156, Mean Platelet Volume 9.7, Sodium Level 133L, Potassium Level 3.5L, Chloride Level 107, Carbon Dioxide Level 17L, Anion Gap 9, Blood Urea Nitrogen 17, C reatinine 0.82, Estimat Glomerular Filtration Rate 104, BUN/Creatinine Ratio 21, Glucose Level 144H, Calcium Level 7.8L, Corrected Calcium 8.9, Magnesium Level 1.8, Total Bilirubin 0.9, Aspartate Amino Transf (AST/SGOT) 30, Alanine Aminotransferase (ALT/SGPT) 19, Alkaline Phosphatase 251H, Total Protein 5.2L, Albumin 2.6L Microbiology 10/14/21 Blood Culture - Preliminary, Resulted No growth 10/14/21 C. difficile GDH Antigen & Toxins - Final, Resulted 10/14/21 Stool Culture - Preliminary, Resulted Assessment/Plan Assessment/Plan Assess & Plan/Chief Complaint Assessment: GI bleed Hyponatremia 110 but possible incorrect lab value? 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
[2021-10-16 08:00] VITALS: BP 113/59
[2021-10-16] MEDS: MAGNESIUM OXIDE (MAG-OX)400 MG TAB PO SCH ×2 (08:45→20:21)
[2021-10-16] MEDS: BISOPROLOL 5 MG TAB (ZEBETA) PO SCH (08:46)
[2021-10-16] MEDS: amLODIPine 5 MG (NORVASC) TAB PO SCH (08:47)
[2021-10-16] MEDS: PANTOPRAZOLE 40 MG (PROTONIX) TAB PO SCH (08:47)
[2021-10-16] MEDS: RIFAXIMIN 550 MG TABLET (XIFAXAN) PO SCH ×2 (08:47→20:21)
[2021-10-16] MEDS: SPIRONOLACTONE 100 MG (ALDACTONE) TABLET PO SCH (08:47)
[2021-10-16] MEDS: SENNOSIDES 8.6 MG (SENOKOT) TAB PO SCH ×2 (08:47→20:21)
[2021-10-16] MEDS: DOCUSATE SODIUM 100 MG (COLACE) CAP PO SCH ×2 (08:47→20:21)
[2021-10-16] MEDS: PANTOPRAZOLE 40 MG (PROTONIX) VIAL IV SCH (08:48)
[2021-10-16] MEDS ORDERED: VITAMIN D2 1.25 MG (50,000 UNITS) CAP PO SCH (09:00)
--- NOTE | 2021-10-16 11:17 | Progress Note ---
Subjective Date Seen by a Provider: Oct 16, 2021 Time Seen by a Provider: 10:30 Subjective/Events-last exam doing well. tolerating diet. more formed stools with no blood. no abd pain. Focused Exam Lactate Level 10/14/21 16:24: Lactic Acid Level 1.34 Objective Exam Vital Signs Date Time Temp Pulse Resp B/P (MAP) Pulse Ox O2 Delivery O2 Flow Rate FiO2 10/16/21 08:00 98 Room Air 10/16/21 08:00 36.3 65 13 113/59 (77) 99 Room Air 10/16/21 07:39 Room Air 10/16/21 06:00 Room Air 10/16/21 03:35 99 NIV CPAP 10/16/21 03:35 36.1 68 18 105/59 (74) 98 NIV CPAP 10/15/21 23:30 36.5 80 20 101/59 (73) 97 Room Air 10/15/21 23:25 98 Room Air 10/15/21 19:20 99 Room Air 10/15/21 19:00 36.5 99 22 125/61 (82) 99 Room Air 10/15/21 18:48 98 Room Air 10/15/21 16:00 66 14 109/57 (74) 99 Room Air 10/15/21 16:00 97 Room Air 10/15/21 12:00 36.1 10/15/21 12:00 71 13 111/62 (78) 97 Room Air 10/15/21 12:00 96 Room Air I & O 10/16/21 07:00 Intake Total 3175 ml Output Total 400 ml Balance 2775 ml Capillary Refill : General Appearance: No Apparent Distress HEENT: PERRL/EOMI Neck: Full Range of Motion Respiratory: Chest Non Tender, Lungs Clear Cardiovascular: Regular Rate, Rhythm Gastrointestinal: normal bowel sounds, non tender, soft Neurologic/Psychiatric: Alert Skin: Normal Color Lymphatic: No Adenopathy Results Lab Laboratory Tests 10/16/21 04:45: White Blood Count 9.9, Red Blood Count 3.27L, Hemoglobin 9.6L, Hematocrit 28L, Mean Corpuscular Volume 84, Mean Corpuscular Hemoglobin 29, Mean Corpuscular Hemoglobin Concent 35, Red Cell Distribution Width 15.2H, Platelet Count 156, Mean Platelet Volume 9.7, Sodium Level 133L, Potassium Level 3.5L, Chloride Level 107, Carbon Dioxide Level 17L, Anion Gap 9, Blood Urea Nitrogen 17, Creatinine 0.82, Estimat Glomerular Filtration Rate 104, BUN/Creatinine Ratio 21, Glucose Level 144H, Calcium Level 7.8L, Corrected Calcium 8.9, Magnesium Level 1.8, Total Bilirubin 0.9, Aspartate Amino Transf (AST/SGOT) 30, Alanine Aminotransferase (ALT/SGPT) 19, Alkaline Phosphatase 251H, Total Protein 5.2L, Albumin 2.6L Microbiology 10/14/21 Blood Culture - Preliminary, Resulted No growth 10/14/21 C. difficile GDH Antigen & Toxins - Final, Complete 10/14/21 Stool Culture - Final, Complete Assessment/Plan Assessment/Plan Assess & Plan/Chief Complaint lower GIB secondary UC flare up. responding well to steroids. cont hb monitor. Clinical Quality Measures DVT/VTE Risk/Contraindication: Contraindications-Pharm: Other *list below* Other: KARY Pritchard MD Oct 16, 2021 11:17
[2021-10-16 11:57] VITALS: BP 113/62
[2021-10-16] MEDS ORDERED: VITAMIN A 2400 MCG PO SCH (12:00)
[2021-10-16] MEDS ORDERED: KCL 10 MEQ TAB (MICRO K) PO SCH (12:00)
[2021-10-16 15:38] VITALS: BP 114/67
[2021-10-16 19:18] VITALS: BP 123/68
[2021-10-16] MEDS: sulfaSALAzine 500 MG (AZULFIDINE) TAB PO SCH (20:21)
[2021-10-17] VITALS: BP 114/55
[2021-10-17 04:02] VITALS: BP 112/60
[2021-10-17 06:10] LABS: HEMATOCRIT 29 % (40-54); HEMOGLOBIN 9.8 g/dL (13.3-17.7); MEAN CORPUSCULAR HEMOGLOBIN 29 pg (25-34); MEAN CORPUSCULAR HGB CONC 33 g/dL (32-36); MEAN CORPUSCULAR VOLUME 87 fL (80-99); MEAN PLATELET VOLUME 10.1 fL (9.0-12.2); PLATELET COUNT 139 10^3/uL (130-400)
[2021-10-17 06:25] LABS: ALBUMIN 2.5 GM/DL (3.2-4.5)
[2021-10-17 06:28] LABS: TOTAL PROTEIN 5.2 GM/DL (6.4-8.2)
[2021-10-17 06:30] LABS: BILIRUBIN,TOTAL 0.9 MG/DL (0.1-1.0)
[2021-10-17 06:31] LABS: CREATININE SERUM 0.73 MG/DL (0.60-1.30)
[2021-10-17 07:35] VITALS: BP 124/60
[2021-10-17] MEDS: MAGNESIUM OXIDE (MAG-OX)400 MG TAB PO SCH (08:29)
[2021-10-17] MEDS: SPIRONOLACTONE 100 MG (ALDACTONE) TABLET PO SCH (08:29)
[2021-10-17] MEDS: methylPREDNISolone 40 MG/ML (Solu-MEDROL) VIAL IV SCH (08:29)
[2021-10-17] MEDS: PANTOPRAZOLE 40 MG (PROTONIX) VIAL IV SCH (08:29)
[2021-10-17] MEDS: DOCUSATE SODIUM 100 MG (COLACE) CAP PO SCH (08:29)
[2021-10-17] MEDS: RIFAXIMIN 550 MG TABLET (XIFAXAN) PO SCH (08:29)
[2021-10-17] MEDS: PANTOPRAZOLE 40 MG (PROTONIX) TAB PO SCH (08:30)
[2021-10-17] MEDS: amLODIPine 5 MG (NORVASC) TAB PO SCH (08:30)
[2021-10-17] MEDS: SENNOSIDES 8.6 MG (SENOKOT) TAB PO SCH (08:30)
[2021-10-17] MEDS: BISOPROLOL 5 MG TAB (ZEBETA) PO SCH (09:25)
[2021-10-17] MEDS ORDERED: PRED10TA22 PO (11:06)
--- NOTE | 2021-10-17 11:07 | Discharge Summary ---
Diagnosis/Chief Complaint Date of Admission Oct 14, 2021 at 20:25 Date of Discharge Discharge Date: Oct 17, 2021 Discharge Diagnosis Assessment: GI bleed Hyponatremia 110 but possible incorrect lab value? 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 Ulcerative colitis History of GI bleeds Abdominal pain COPD MAYELA on CPAP Hypertension History of DVT right leg Plan: IV steroids PT OT Home meds Dr Zepeda Discharge Summary Discharge Physical Examination Allergies: Coded Allergies: No Known Drug Allergies (Verified , 02/20/19) Vitals & I&Os Vital Signs Date Time Temp Pulse Resp B/P (MAP) Pulse Ox O2 Delivery O2 Flow Rate FiO2 10/17/21 11:45 36.7 67 18 118/62 99 Room Air 10/15/21 04:00 21 General Appearance: Alert, Oriented X3, Cooperative Respiratory: Clear to Auscultation Cardiovascular: Regular Rate Neuro: Normal Gait, Normal Speech, Strength at 5/5 X4 Ext Psych/Mental Status: Mental Status NL Hospital Course Was the Problem List Reviewed?: Yes Hospital course: Patient had an uneventful hospital course after he was directly admitted to fourth floor due to colitis flare with GI bleeding and dehydration. Patient had a sodium level of 110 prompting ICU transfer with hypertonic saline but repeat was 134. Lab senior medical technologist notified. Patient did receive gentle IV fluids with IV steroids which resolved the colitis. Overall patient did well and had no concerns during the course and patient was deemed stable for discharge. Labs (last 24 hrs) Laboratory Tests 10/14/21 14:16: Magnesium Level 1.5L 10/14/21 15:50: Stool Occult Blood Immunoassay POSITIVEH 10/14/21 16:24: White Blood Count 9.7, Red Blood Count 3.78L, Hemoglobin 11.1L, Hematocrit 32L, Mean Corpuscular Volume 85, Mean Corpuscular Hemoglobin 29, Mean Corpuscular Hemoglobin Concent 35, Red Cell Distribution Width 16.0H, Platelet Count 194, Mean Platelet Volume 9.4, Immature Granulocyte % (Auto) 2, Neutrophils (%) (Auto) 76H, Lymphocytes (%) (Auto) 9L, Monocytes (%) (Auto) 9, Eosinophils (%) (Auto) 4, Basophils (%) (Auto) 1, Neutrophils # (Auto) 7.4, Lymphocytes # (Auto) 0.9L, Monocytes # (Auto) 0.9, Eosinophils # (Auto) 0.3, Basophils # (Auto) 0.1, Immature Granulocyte # (Auto) 0.2H, Erythrocyte Sedimentation Rate 42H, Prothrombin Time 16.0H, INR Comment 1.2, Activated Partial Thromboplast Time 46H , Sodium Level 131L, Potassium Level 2.7L, Chloride Level 85L, Carbon Dioxide Level 16L, Anion Gap 30H, Blood Urea Nitrogen 9, Creatinine 0.70, Estimat Glomerular Filtration Rate 109, BUN/Creatinine Ratio 13, Glucose Level 90, Lactic Acid Level 1.34, Calcium Level 7.4L, Corrected Calcium 8.4L, Total Bilirubin 1.9H, Aspartate Amino Transf (AST/SGOT) 50H, Alanine Aminotransferase (ALT/SGPT) 27, Alkaline Phosphatase 309H, Ammonia 67H, Total Protein 5.6L, Albumin 2.7L 10/14/21 21:08: Magnesium Level 1.8, Sodium Level 135, Potassium Level 3.0L, Chloride Level 104, Carbon Dioxide Level 21, Anion Gap 10, Blood Urea Nitrogen 9, Creatinine 0.76, Estimat Glomerular Filtration Rate 106, BUN/Creatinine Ratio 12, Glucose Level 103, Calcium Level 8.1L, Phosphorus Level 1.8L 10/14/21 21:45: Sodium Level 136, Potassium Level 3.3L, Chloride Level 106, Carbon Dioxide Level 19L, Anion Gap 11, Blood Urea Nitrogen 10, Creatinine 0.73, Estimat Glomerular Filtration Rate 107, BUN/Creatinine Ratio 14, Glucose Level 108H, Calcium Level 8.2L 10/15/21 04:27: Sodium Level 134L, Potassium Level 3.5L, Chloride Level 106, Carbon Dioxide Level 16L, Anion Gap 12, Blood Urea Nitrogen 13, Creatinine 0.80, Estimat Glomerular Filtration Rate 105, BUN/Creatinine Ratio 16, Glucose Level 163H, Calcium Level 8.1L, White Blood Count 7.7, Red Blood Count 3.73L, Hemoglobin 10.6L, Hematocrit 31L, Mean Corpuscular Volume 84, Mean Corpuscular Hemoglobin 28, Mean Corpuscular Hemoglobin Concent 34, Red Cell Distribution Width 15.5H, Platelet Count 168, Mean Platelet Volume 9.7, Corrected Calcium 9.1, Phosphorus Level 3.0, Magnesium Level 1.8, Total Bilirubin 1.8H, Aspartate Amino Transf (AST/SGOT) 40H, Alanine Aminotransferase (ALT/SGPT) 25, Alkaline Phosphatase 306H, Total Protein 5.6L, Albumin 2.7L 10/16/21 04:45: Sodium Level 133L, Potassium Level 3.5L, Chloride Level 107, Carbon Dioxide Level 17L, Anion Gap 9, Blood Urea Nitrogen 17, Creatinine 0.82, Estimat Glomerular Filtration Rate 104, BUN/Creatinine Ratio 21, Glucose Level 144H, Calcium Level 7.8L, White Blood Count 9.9, Red Blood Count 3.27L, Hemoglobin 9.6L, Hematocrit 28L, Mean Corpuscular Volume 84, Mean Corpuscular Hemoglobin 29, Mean Corpuscular Hemoglobin Concent 35, Red Cell Distribution Width 15.2H, Platelet Count 156, Mean Platelet Volume 9.7, Corrected Calcium 8.9, Magnesium Level 1.8, Total Bilirubin 0.9, Aspartate Amino Transf (AST/SGOT) 30, Alanine Aminotransferase (ALT/SGPT) 19, Alkaline Phosphatase 251H, Total Protein 5.2L, Albumin 2.6L 10/17/21 05:16: Sodium Level 136, Potassium Level 4.0, Chloride Level 109H, Carbon Dioxide Level 18L, Anion Gap 9, Blood Urea Nitrogen 18, Creatinine 0.73, Estimat Glomerular Filtration Rate 107, BUN/Creatinine Ratio 25, Glucose Level 144H, Calcium Level 8.0L, White Blood Count 10.0, Red Blood Count 3.37L, Hemoglobin 9.8L, Hematocrit 29L, Mean Corpuscular Volume 87, Mean Corpuscular Hemoglobin 29, Mean Corpuscular Hemoglobin Concent 33, Red Cell Distribution Width 16.1H, Platelet Count 139, Mean Platelet Volume 10.1, Corrected Calcium 9.2, Total Bilirubin 0.9, Aspartate Amino Transf (AST/SGOT) 44H, Alanine Aminotransferase (ALT/SGPT) 24, Alkaline Phosphatase 269H, Total Protein 5.2L, Albumin 2.5L Microbiology 10/14/21 Blood Culture - Preliminary, Resulted No growth 10/14/21 C. difficile GDH Antigen & Toxins - Final, Complete 10/14/21 Stool Culture - Final, Complete Pending Labs Microbiology Date/Time Source Procedure Growth Status 10/14/21 16:24 Peripheral Lt Ac Blood Culture - Preliminary No growth Resulted 10/14/21 16:12 Peripheral Right Wrist Blood Culture - Preliminary No growth Resulted 10/14/21 15:50 Stool C. difficile GDH Antigen & Toxins - Final Complete 10/14/21 15:50 Stool Stool Culture - Final Complete Laboratory Tests 10/14/21 14:16: Magnesium Level 1.5 10/14/21 15:50: Stool Occult Blood Immunoassay POSITIVE 10/14/21 16:24: White Blood Count 9.7, Red Blood Count 3.78, Hemoglobin 11.1, Hematocrit 32, Mean Corpuscular Volume 85, Mean Corpuscular Hemoglobin 29, Mean Corpuscular Hemoglobin Concent 35, Red Cell Distribution Width 16.0, Platelet Count 194, Mean Platelet Volume 9.4, Immature Granulocyte % (Auto) 2, Neutrophils (%) (Auto) 76, Lymphocytes (%) (Auto) 9, Monocytes (%) (Auto) 9, Eosinophils (%) (Auto) 4, Basophils (%) (Auto) 1, Neutrophils # (Auto) 7.4, Lymphocytes # (Auto) 0.9, Monocytes # (Auto) 0.9, Eosinophils # (Auto) 0.3, Basophils # (Auto) 0.1, Immature Granulocyte # (Auto) 0.2, Erythrocyte Sedimentation Rate 42, Prothrombin Time 16.0, INR Comment 1.2, Activated Partial Thromboplast Time 46, Sodium Level 131, Potassium Level 2.7, Chloride Level 85, Carbon Dioxide Level 16, Anion Gap 30, Blood Urea Nitrogen 9, Creatinine 0.70, Estimat Glomerular Filtration Rate 109, BUN/Creatinine Ratio 13, Glucose Level 90, Lactic Acid Level 1.34, Calcium Level 7.4, Corrected Calcium 8.4, Total Bilirubin 1.9, Aspartate Amino Transf (AST/SGOT) 50, Alanine Aminotransferase (ALT/SGPT) 27, Alkaline Phosphatase 309, Ammonia 67, Total Protein 5.6, Albumin 2.7 10/14/21 21:08: Magnesium Level 1.8, Sodium Level 135, Potassium Level 3.0, Chloride Level 104, Carbon Dioxide Level 21, Anion Gap 10, Blood Urea Nitrogen 9, Creatinine 0.76, Estimat Glomerular Filtration Rate 106, BUN/Creatinine Ratio 12, Glucose Level 103, Calcium Level 8.1, Phosphorus Level 1.8 10/14/21 21:45: Sodium Level 136, Potassium Level 3.3, Chloride Level 106, Carbon Dioxide Level 19, Anion Gap 11, Blood Urea Nitrogen 10, Creatinine 0.73, Estimat Glomerular Filtration Rate 107, BUN/Creatinine Ratio 14, Glucose Level 108, Calcium Level 8.2 10/15/21 04:27: Sodium Level 134, Potassium Level 3.5, Chloride Level 106, Carbon Dioxide Level 16, Anion Gap 12, Blood Urea Nitrogen 13, Creatinine 0.80, Estimat Glomerular Filtration Rate 105, BUN/Creatinine Ratio 16, Glucose Level 163, Calcium Level 8.1, White Blood Count 7.7, Red Blood Count 3.73, Hemoglobin 10.6, Hematocrit 31, Mean Corpuscular Volume 84, Mean Corpuscular Hemoglobin 28, Mean Corpuscular Hemoglobin Concent 34, Red Cell Distribution Width 15.5, Platelet Count 168, Mean Platelet Volume 9.7, Corrected Calcium 9.1, Phosphorus Level 3.0, Magnesium Level 1.8, Total Bilirubin 1.8, Aspartate Amino Transf (AST/SGOT) 40, Alanine Aminotransferase (ALT/SGPT) 25, Alkaline Phosphatase 306, Total Protein 5.6, Albumin 2.7 10/16/21 04:45: Sodium Level 133, Potassium Level 3.5, Chloride Level 107, Carbon Dioxide Level 17, Anion Gap 9, Blood Urea Nitrogen 17, Creatinine 0.82, Estimat Glomerular Filtration Rate 104, BUN/Creatinine Ratio 21, Glucose Level 144, Calcium Level 7.8, White Blood Count 9.9, Red Blood Count 3.27, Hemoglobin 9.6, Hematocrit 28, Mean Corpuscular Volume 84, Mean Corpuscular Hemoglobin 29, Mean Corpuscular Hemoglobin Concent 35, Red Cell Distribution Width 15.2, Platelet Count 156, Mean Platelet Volume 9.7, Corrected Calcium 8.9, Magnesium Level 1.8, Total Bilirubin 0.9, Aspartate Amino Transf (AST/SGOT) 30, Alanine Aminotransferase (ALT/SGPT) 19, Alkaline Phosphatase 251, Total Protein 5.2, Albumin 2.6 10/17/21 05:16: Sodium Level 136, Potassium Level 4.0, Chloride Level 109, Carbon Dioxide Level 18, Anion Gap 9, Blood Urea Nitrogen 18, Creatinine 0.73, Estimat Glomerular Filtration Rate 107, BUN/Creatinine Ratio 25, Glucose Level 144, Calcium Level 8.0, White Blood Count 10.0, Red Blood Count 3.37, Hemoglobin 9.8, Hematocrit 29, Mean Corpuscular Volume 87, Mean Corpuscular Hemoglobin 29, Mean Corpuscular Hemoglobin Concent 33, Red Cell Distribution Width 16.1, Platelet Count 139, Mean Platelet Volume 10.1, Corrected Calcium 9.2, Total Bilirubin 0.9, Aspartate Amino Transf (AST/SGOT) 44, Alanine Aminotransferase (ALT/SGPT) 24, Alkaline Phosphatase 269, Total Protein 5.2, Albumin 2.5 Discharge Home Medications: Active Scripts Active Prednisone 10 Mg Tab.ds.pk 10 Mg PO DAILY Take 6 tabs(60mg)daily,decrease by 1 tab(10mg)every other day. Reported Furosemide 40 Mg Tablet 40 Mg PO DAILY Spironolactone 50 Mg Tablet 100 Mg PO DAILY TAKES 2 (50MG) TABS Magnesium Oxide 400 Mg Tablet 400 Mg PO BID Vitamin A 2,400 Mcg Capsule 2,400 Mcg PO 1200 Vitamin D2 (Ergocalciferol (Vitamin D2)) 1,250 Mcg Capsule 1,250 Mcg PO SAT @1200 Citalopram HBr (Citalopram Hydrobromide) 40 Mg Tablet 40 Mg PO DAILY Potassium Chloride 10 Meq Capsule.er 10 Meq PO 1200 Sulfasalazine 500 Mg Tablet 3,000 Mg PO HS TAKES 6 (500MG) TABS Bisoprolol Fumarate 10 Mg Tablet 10 Mg PO DAILY Omeprazole 40 Mg Capsule.dr 40 Mg PO DAILY Xifaxan (Rifaximin) 550 Mg Tablet 550 Mg PO BID Amlodipine Besylate 5 Mg Tablet 5 Mg PO DAILY Instructions to patient/family Please see electronic discharge instructions given to patient. Diagnosis/Problems Diagnosis/Problems (1) Blood per rectum (2) Ulcerative colitis Status: Chronic Qualifiers: Qualified Codes: K51.011 - Ulcerative (chronic) pancolitis with rectal bleeding Clinical Quality Measures DVT/VTE Risk/Contraindication: Contraindications-Pharm: Other *list below* Other: DIANA Weinstein DO Oct 17, 2021 11:07
[2021-10-17 11:15] VITALS: BP 118/62
[2021-10-17 11:45] VITALS: BP 118/62
== END 2021-10-17 11:50 | disposition home or self-care (01) | DRG 386 ==
LOC: 4TH 15:25 → ICU 17:43 → OBSVTOIN 20:25 → ICU 10-15 11:36 → 4TH 10-16 15:18
PROVIDERS: ADMIT Internal Medicine; ATTEND Internal Medicine
DX: K51.011 Ulcerative (chronic) pancolitis with rectal bleeding (principal); K92.2 Gastrointestinal hemorrhage, unspecified; E87.1 Hypo-osmolality and hyponatremia; K72.90 Hepatic failure, unspecified without coma; K74.5 Biliary cirrhosis, unspecified; J44.9 Chronic obstructive pulmonary disease, unspecified; G47.33 Obstructive sleep apnea (adult) (pediatric); I10 Essential (primary) hypertension; Z86.718 Personal history of other venous thrombosis and embolism; E86.0 Dehydration; G89.29 Other chronic pain; M54.9 Dorsalgia, unspecified; Z87.891 Personal history of nicotine dependence; M19.90 Unspecified osteoarthritis, unspecified site; E11.9 Type 2 diabetes mellitus without complications; H91.90 Unspecified hearing loss, unspecified ear; F41.9 Anxiety disorder, unspecified
CPT/HCPCS: 36415; 74022; 80048; 80053; 82140; 82274; 83605; 83735; 84100; 85025; 85027; 85610; 85652; 85730; 87015; 87040; 87045; 87046; 87324; 87449; 87899; 94640

== ENCOUNTER 2021-11-06 04:24 | Emergency (ER) | payer MEDICARE ==
[~2021-11-06] VITALS: Ht 177.8 cm; Wt 107.7 kg
[~2021-11-06 04:24] MED LIST changes: +FURO40TA4 PO; +MAGN400T7 PO; +SPIR50TA4 PO
--- NOTE | 2021-11-06 04:38 | ED General ---
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 Abd pain present for over a week. It is stabbing and diffusely over his abdomen. It is moderate to severe. Nothing makes it feel better or worse.Has had nonbloody diarrhea for a week. Denies any chest pain, SOA, dysuria, fever, chills, weakness, numbness, n/v. (GEOVANNY HERBERT MD) Allergies and Home Medications Allergies Coded Allergies: No Known Drug Allergies (Verified , 02/20/19) Patient Home Medication List Home Medication List Reviewed: Yes (GEOVANNY HERBERT MD) Amlodipine Besylate (Amlodipine Besylate) 5 Mg Tablet, 5 MG PO DAILY, (Reported) Entered as Reported by: ARGENTINA LATHAM on 07/02/18 1639 Bisoprolol Fumarate (Bisoprolol Fumarate) 10 Mg Tablet, 10 MG PO DAILY, (Reported) Entered as Reported by: ARGENTINA LATHAM on 07/02/18 1639 Citalopram Hydrobromide (Citalopram HBr) 40 Mg Tablet, 40 MG PO DAILY, (Reported) Entered as Reported by: ИВАН MCGHEE on 01/23/20 1656 Ergocalciferol (Vitamin D2) (Vitamin D2) 1,250 Mcg Capsule, 1,250 MCG PO SAT @1200, (Reported) Entered as Reported by: ИВНА MCGHEE on 06/22/20 0911 Furosemide (Furosemide) 40 Mg Tablet, 40 MG PO DAILY, (Reported) Entered as Reported by: ИВАН MCGHEE on 10/15/21 0944 Magnesium Oxide (Magnesium Oxide) 400 Mg Tablet, 400 MG PO BID, (Reported) Entered as Reported by: ИВАН MCGHEE on 10/15/21 0944 Omeprazole (Omeprazole) 40 Mg Capsule.dr, 40 MG PO DAILY, (Reported) Entered as Reported by: ARGENTINA LATHAM on 07/02/18 1639 Oxycodone HCl (Oxycodone HCl) 5 Mg Tablet, 5 MG PO Q6H PRN for PAIN-MODERATE (5- 7) Prescribed by: ROSE LAU on 11/06/21 0740 Potassium Chloride (Potassium Chloride) 10 Meq Capsule.er, 10 MEQ PO 1200, (Reported) Entered as Reported by: ИВАН MCGHEE on 01/23/20 1656 Prednisone (Prednisone) 10 Mg Tab.ds.pk, 10 MG PO DAILY Prescribed by: DIANA BARRIGA on 10/17/21 1106 Prednisone (Prednisone) 10 Mg Tab.ds.pk, 10 MG PO DAILY Prescribed by: ROSE LAU on 11/06/21 0740 Rifaximin (Xifaxan) 550 Mg Tablet, 550 MG PO BID, (Reported) Entered as Reported by: ARGENTINA LATHAM on 07/02/18 1639 Spironolactone (Spironolactone) 50 Mg Tablet, 100 MG PO DAILY, (Reported) Entered as Reported by: ИВАН MCGHEE on 10/15/21 0944 Sulfasalazine (Sulfasalazine) 500 Mg Tablet, 3,000 MG PO HS, (Reported) Entered as Reported by: ИВАН MCGHEE on 01/23/20 1656 Vitamin A (Vitamin A) 2,400 Mcg Capsule, 2,400 MCG PO 1200, (Reported) Entered as Reported by: ИВАН MCGHEE on 03/31/21 1032 Review of Systems Review of Systems Constitutional: No fever EENTM: No blurred vision Respiratory: No cough Cardiovascular: No chest pain Gastrointestinal: No abdominal pain Genitourinary: no symptoms reported Musculoskeletal: other (hand cramps) Skin: no symptoms reported Psychiatric/Neurological: No Symptoms Reported Hematologic/Lymphatic: No Symptoms Reported Immunological/Allergic: no symptoms reported (GEOVANNY HERBERT MD) All Other Systems Reviewed Negative Unless Noted: Yes (GEOVANNY HERBERT MD) Past Weqqwlr-Eoukzq-Rikrem Hx Patient Social History Tobacco Use?: No (GEOVANNY HERBERT MD) Immunizations Up To Date Tetanus Booster (TDap): Unknown First/Initial COVID19 Vaccinat: OCTOBER Second COVID19 Vaccination Yair: Nov COVID19 Vaccination Date: OCTOBER (GEOVANNY HERBERT MD) Seasonal Allergies Seasonal Allergies: No (GEOVANNY HERBERT MD) Past Medical History Surgery/Hospitalization HX: HERE WITHIN THE LAST YEAR, DATES UNKNOWN Surgeries: Yes (colonoscopies) Respiratory: No COPD Currently Using CPAP: Yes Cardiac: Yes Deep Vein Thrombosis, High Cholesterol, Hypertension Neurological: Yes (hepatic encephalopathy) Sexually Transmitted Disease: No HIV/AIDS: No Genitourinary: No Gastrointestinal: Yes Crohns Disease, Esophageal Varices, Cirrhosis Musculoskeletal: Yes Arthritis Endocrine: Yes Diabetes, Insulin dep HEENT: Yes (decreased and wears glasses) Loss of Vision: Bilateral Hearing Impairment: Hard of Hearing Cancer: No Psychosocial: Yes Anxiety Integumentary: Yes Psoriasis Blood Disorders: No Adverse Reaction/Blood Tranf: No (N/A) (GEOVANNY HERBERT MD) Family Medical History Cardiovascular disease 19 FATHER Diabetes mellitus 19 FATHER FH: hypertension 19 MOTHER Myocardial infarction 19 FATHER 19 MOTHER G8 BROTHER CAD Over 55 Years Old, Diabetes, Hypertension (GEOVANNY HERBERT MD) Physical Exam Vital Signs Vital Signs - First Documented 11/06/21 04:35 Temp 35.9 Pulse 92 Resp 16 B/P (MAP) 148/75 (99) Pulse Ox 95 O2 Delivery Room Air (ROSE STRICKLAND MD) Vital Signs Capillary Refill : (GEOVANNY HERBERT MD) Height, Weight, BMI Height: 5'10.00" Weight: 289lbs. 0.0oz. 131.348015dv; 33.13 BMI Method:Stated General Appearance: No Apparent Distress, WD/WN HEENT: PERRL/EOMI, Normal ENT Inspection, Pharynx Normal Neck: Full Range of Motion, Normal Inspection, Non Tender, Supple Respiratory: Chest Non Tender, Lungs Clear, Normal Breath Sounds, No Accessory Muscle Use, No Respiratory Distress Cardiovascular: Regular Rate, Rhythm, No Edema, Normal Peripheral Pulses Gastrointestinal: Normal Bowel Sounds, Non Tender, Soft; No Distended, No Guard ing Back: Normal Inspection, No CVA Tenderness Extremity: Normal Capillary Refill, Normal Inspection, Normal Range of Motion, Non Tender, No Calf Tenderness, No Pedal Edema Neurologic/Psychiatric: Alert, No Motor/Sensory Deficits, Normal Mood/Affect Skin: Normal Color, Warm/Dry Lymphatic: No Adenopathy (GEOVANNY HERBERT MD) Progress/Results/Core Measures Suspected Sepsis SIRS Temperature: Pulse: Respiratory Rate: Laboratory Tests 11/06/21 05:30: White Blood Count 8.8 Blood Pressure / Mean: Laboratory Tests 11/06/21 05:30: Creatinine 0.71, Platelet Count 136, Total Bilirubin 1.8H (GEOVANNY HERBERT MD) Results/Orders Lab Results Laboratory Tests Test 11/06/21 05:30 11/06/21 06:45 Range/Units White Blood Count 8.8 4.3-11.0 10^3/uL Red Blood Count 4.14 L 4.30-5.52 10^6/uL Hemoglobin 11.9 L 13.3-17.7 g/dL Hematocrit 35 L 40-54 % Mean Corpuscular Volume 85 80-99 fL Mean Corpuscular Hemoglobin 29 25-34 pg Mean Corpuscular Hemoglobin Concent 34 32-36 g/dL Red Cell Distribution Width 15.8 H 10.0-14.5 % Platelet Count 136 130-400 10^3/uL Mean Platelet Volume 10.4 9.0-12.2 fL Immature Granulocyte % (Auto) 5 % Neutrophils (%) (Auto) 67 42-75 % Lymphocytes (%) (Auto) 11 L 12-44 % Monocytes (%) (Auto) 15 H 0-12 % Eosinophils (%) (Auto) 2 0-10 % Basophils (%) (Auto) 1 0-10 % Neutrophils # (Auto) 5.9 1.8-7.8 10^3/uL Lymphocytes # (Auto) 1.0 1.0-4.0 10^3/uL Monocytes # (Auto) 1.3 H 0.0-1.0 10^3/uL Eosinophils # (Auto) 0.2 0.0-0.3 10^3/uL Basophils # (Auto) 0.1 0.0-0.1 10^3/uL Immature Granulocyte # (Auto) 0.4 H 0.0-0.1 10^3/uL Sodium Level 131 L 135-145 MMOL/L Potassium Level 2.8 L 3.6-5.0 MMOL/L Chloride Level 101 98-107 MMOL/L Carbon Dioxide Level 20 L 21-32 MMOL/L Anion Gap 10 5-14 MMOL/L Blood Urea Nitrogen 13 7-18 MG/DL Creatinine 0.71 0.60-1.30 MG/DL Estimat Glomerular Filtration Rate 108 BUN/Creatinine Ratio 18 Glucose Level 135 H 70-105 MG/DL Calcium Level 7.3 L 8.5-10.1 MG/DL Corrected Calcium 8.7 8.5-10.1 MG/DL Total Bilirubin 1.8 H 0.1-1.0 MG/DL Aspartate Amino Transf (AST/SGOT) 32 5-34 U/L Alanine Aminotransferase (ALT/SGPT) 22 0-55 U/L Alkaline Phosphatase 184 H 40-136 U/L C-Reactive Protein High Sensitivity 5.58 H 0.00-0.50 MG/DL Total Protein 4.1 L 6.4-8.2 GM/DL Albumin 2.2 L 3.2-4.5 GM/DL Lipase 45 8-78 U/L Urine Color ORANGE Urine Clarity CLEAR Urine pH 6.5 5-9 Urine Specific [place] 1.010 L 1.016-1.022 Urine Protein NEGATIVE NEGATIVE Urine Glucose (UA) NEGATIVE NEGATIVE Urine Ketones NEGATIVE NEGATIVE Urine Nitrite NEGATIVE NEGATIVE Urine Bilirubin NEGATIVE NEGATIVE Urine Urobilinogen 0.2 < = 1.0 MG/DL Urine Leukocyte Esterase NEGATIVE NEGATIVE Urine RBC (Auto) NEGATIVE NEGATIVE Urine RBC NONE /HPF Urine WBC 2-5 /HPF Urine Squamous Epithelial Cells RARE /HPF Urine Crystals NONE /LPF Urine Bacteria FEW H /HPF Urine Casts NONE /LPF Urine Mucus NEGATIVE /LPF Urine Culture Indicated YES (ROSE STRICKLAND MD) My Orders Orders - ROSE STRICKLAND MD Ua Culture If Indicated (11/06/21 06:06) Urine Culture (11/06/21 06:45) Magnesium (11/06/21 07:12) Morphine Injection (Morphine Injection (11/06/21 07:21) Ammonia (11/06/21 07:24) Methylprednisolone Sod Succ (Solu-Medrol (11/06/21 07:30) Morphine Injection (Morphine Injection (11/06/21 07:31) (ROSE STRICKLAND MD) Medications Given in ED Current Medications Medications Dose Ordered Sig/Vesta Route Start Time Stop Time Status Last Admin Dose Admin Iohexol 100 ml ONCE ONCE IV 11/06/21 06:30 11/06/21 06:32 DC 11/06/21 06:22 100 ML Methylprednisolone Sodium Succinate 62.5 mg ONCE ONCE IVP 11/06/21 07:30 11/06/21 07:31 DC 11/06/21 07:39 62.5 MG Ondansetron HCl 4 mg ONCE ONCE IVP 11/06/21 05:15 11/06/21 05:16 DC 11/06/21 05:34 4 MG Potassium Chloride 40 meq ONCE ONCE PO 11/06/21 06:00 11/06/21 06:01 DC 11/06/21 06:13 40 MEQ (ROSE STRICKLAND MD) Vital Signs/I&O 11/06/21 11/06/21 04:35 07:40 Temp 35.9 35.9 Pulse 92 Resp 16 B/P (MAP) 148/75 (99) Pulse Ox 95 O2 Delivery Room Air (ROSE STRICKLAND MD) Vital Signs/I&O Capillary Refill : (GEOVANNY HERBERT MD) Progress Note : Progress Note 56-year-old male with above history coming in due to mostly abdominal pain with also some hand cramping. ABCs were intact and vitals were stable on presentation. Physical exam with abdominal tenderness in most areas but no signs of peritonitis. I did a [id number] ultrasound of his abdomen given his cirrhosis and he does not have any ascites. He does have a history of colitis, possible this is a flare versus some other etiology. An IV was placed and basic labs were obtained including inflammatory markers. Potassium low at 2.8. He received IV and PO potassium supplementation. CT abdomen pelvis with contrast ordered and is pending at this time. Patient will be signed out to the oncoming physician pending this work-up. He was given fentanyl for pain and Zofran for nausea (GEOVANNY HERBERT MD) Progress Note : Time: 07:41 Progress Note I assumed care of this patient at shift change. CT scan report was reviewed. There are no acute findings requiring admission or urgent treatment at this time. Findings appear to be chronic in nature. Potassium replacement is being accomplished by both IV and oral route. He is receiving a total of 50 mEq in the ER. I have advised that he continue this replacement at home by taking 1 additional dose of potassium chloride 10 mEq daily for the next 5 days. Residual pain is being treated with morphine by IV route. I am prescribing a short course of oxycodone to help with pain management at home. I advised that further pain management should be directed by his primary care provider or Dr. Harrison. Patient and have requested an ammonia level be checked today. His mentation is stable but then he would like to monitor his levels if possible. They report a prednisone pack is typically used to treat his exacerbations of ulcerative colitis and primary cholangitis. We will kick start his steroid therapy with Solu-Medrol 62.5 mg in the ER. He then can start the oral prednisone pack at home. Antibiotics do not appear necessary at this time. Repeat exam of his abdomen reveals a minimally tender abdomen with no peritoneal signs. Lungs were clear to auscultation bilaterally. Patient is alert and oriented but slightly sluggish mentation. Heart regular rate and rhythm. Palpation of the abdomen does not seem to exacerbate his pain. There is a firm fullness in the right upper quadrant consistent with cirrhotic liver. He is afebrile with no leukocytosis and only modest elevation in CRP. Discharge instructions were reviewed with patient and . See discharge instructions for details. (ROSE STRICKLAND MD) Departure Impression Primary Impression: Abdominal pain Qualified Codes: R10.84 - Generalized abdominal pain Additional Impressions: Hypokalemia Primary biliary cholangitis Ulcerative colitis Qualified Codes: K51.918 - Ulcerative colitis, unspecified with other complication Disposition: 01 HOME, SELF-CARE Condition: Improved Departure-Patient Inst. Decision time for Depature: 07:35 (ROSE STRICKLAND MD) Referrals: DIANA BARRIGA DO (PCP/Family) Primary Care Physician Patient Instructions: Ulcerative Colitis in Adults Add. Discharge Instructions: Start the steroid Dosepak today and complete the entire course as prescribed. Take 1 extra dose of your potassium 10 mEq supplement each day for the next 5 days to help replace your low potassium levels. Use oxycodone as prescribed for pain control. Use with caution as this may slow down bowels, cause constipation, or increase ammonia levels. Please discuss further pain management with your primary care provider and Dr. Harrison. Gradually advance diet with small quantities of bland food as tolerated, and drink plenty of clear liquids. Please call your primary care provider and Dr. Harrison on Monday to arrange follow- up. You have had 2 episodes of flareups in the past month. You may need adjustments to your chronic disease management. You should arrange for repeat lab work to check your electrolytes early next week. Please have your records from your last 2 visits to [facility] transferred to Dr. Harrison as he may not have ready access to the [facility] medical record systems. Return to the emergency room if you have worsening symptoms despite following these instructions. Scripts Prednisone (Prednisone) 10 Mg Tab.ds.pk 10 MG PO DAILY, #42 EA Take 6 tabs(60mg)daily,decrease by 1 tab(10mg)every other day. Prov: ROSE STRICKLAND MD 11/06/21 Oxycodone HCl (Oxycodone HCl) 5 Mg Tablet 5 MG PO Q6H PRN for PAIN-MODERATE (5-7), #10 TAB Prov: ROSE STRICKLAND MD 11/06/21 Copy Copies To 1: DIANA BARRIGA ZACHARY K MD Nov 06, 2021 04:38 ROSE STRICKLAND MD Nov 06, 2021 07:40
[2021-11-06] MEDS ORDERED: fentaNYL INJ 100 MCG/2 ML AMP IVP STA (05:05)
[2021-11-06] MEDS ORDERED: ONDANSETRON 4 MG/2 ML (SDV) Z0FRAN IVP ONE (05:15)
[2021-11-06 05:38] LABS: BASOPHILS # (AUTO) 0.1 10^3/uL (0.0-0.1); BASOPHILS % (AUTO) 1 % (0-10); EOSINOPHILS # (AUTO) 0.2 10^3/uL (0.0-0.3); EOSINOPHILS % (AUTO) 2 % (0-10); HEMATOCRIT 35 % (40-54); HEMOGLOBIN 11.9 g/dL (13.3-17.7); LYMPHOCYTES % (AUTO) 11 % (12-44); MEAN CORPUSCULAR HEMOGLOBIN 29 pg (25-34); MEAN CORPUSCULAR HGB CONC 34 g/dL (32-36); MEAN CORPUSCULAR VOLUME 85 fL (80-99); MEAN PLATELET VOLUME 10.4 fL (9.0-12.2); MONOCYTES # (AUTO) 1.3 10^3/uL (0.0-1.0); MONOCYTES % (AUTO) 15 % (0-12); NEUTROPHILS # (AUTO) 5.9 10^3/uL (1.8-7.8); NEUTROPHILS % (AUTO) 67 % (42-75); PLATELET COUNT 136 10^3/uL (130-400); WHITE BLOOD COUNT 8.8 10^3/uL (4.3-11.0)
[2021-11-06 05:47] LABS: ALBUMIN 2.2 GM/DL (3.2-4.5); POTASSIUM 2.8 MMOL/L (3.6-5.0)
[2021-11-06 05:48] LABS: CALCIUM 7.3 MG/DL (8.5-10.1)
[2021-11-06] MEDS ORDERED: POTASSIUM CL 10MEQ/50ML IVPB 50 ML IV STA (05:49)
[2021-11-06 05:50] LABS: TOTAL PROTEIN 4.1 GM/DL (6.4-8.2)
[2021-11-06 05:51] LABS: BILIRUBIN,TOTAL 1.8 MG/DL (0.1-1.0)
[2021-11-06 05:53] LABS: CREATININE SERUM 0.71 MG/DL (0.60-1.30)
[2021-11-06] MEDS ORDERED: KCL 20 MEQ TAB (K-DUR) PO ONE (06:00)
[2021-11-06] MEDS: MAGNESIUM 1 GM/100 ML IVPB 100 ML IV STA ×2 (06:12→07:21)
--- NOTE | 2021-11-06 06:21 | Diagnostic Imaging Report ---
CT ABDOMEN/PELVIS W TECHNIQUE: Multiple contiguous axial images were obtained through the abdomen and pelvis after administration of intravenous contrast. All CT scans use one or more of the following dose optimizing techniques: automated exposure control, MA and/or KvP adjustment based on patient size and exam type or iterative reconstruction. INDICATION: Lower abdominal pain. History of colitis COMPARISON: 05/05/2020 FINDINGS: Lower chest: The lung bases are clear. No pericardial or pleural effusion. Peritoneum: No free intraperitoneal air or fluid. Liver and biliary system: Nodular liver is compatible with cirrhosis. No focal hepatic lesion. The gallbladder is normal. No biliary duct dilation. Spleen and Pancreas: Stable splenomegaly with the spleen measuring 15 cm. Numerous perisplenic varicosities are unchanged. The pancreas enhances normally without mass lesion or peripancreatic inflammatory changes. Adrenals: Normal. tract: The kidneys enhance normally without suspicious mass or obstruction. There are a few nonobstructing renal stones measuring up to 2 mm that are unchanged. Urinary bladder is distended without wall thickening. Prostate is not enlarged. GI tract: Stomach is filled with fluid and there is no wall thickening. No bowel obstruction. Chronic wall thickening of distal colon is unchanged. No pericolonic inflammation to suggest active colitis. The appendix is normal. Vasculature and Lymph nodes: Normal caliber aorta. No abdominal or pelvic lymphadenopathy. Musculoskeletal: No concerning osseous lesion. IMPRESSION: 1. No acute obstructive or inflammatory process. 2. Chronic wall thickening of the distal colon. 3. Cirrhosis with unchanged portal hypertension characterized by splenomegaly and numerous large varicosities in the upper abdomen. Dictated by: Dictated on workstation # [id number]
[2021-11-06] MEDS ORDERED: HOLD METFORMIN - RECEIVED CONTRAST 20 ML VIAL IV SCH (06:30)
[2021-11-06] MEDS ORDERED: NS 100 ML (IVPB) BAG IV ONE (06:30)
[2021-11-06] MEDS ORDERED: IOHEXOL 350 MG/ML 100 ML (OMNIPAQUE 350) VIAL IV ONE (06:30)
[2021-11-06 06:54] LABS: BILIRUBIN,URINE NEGATIVE (NEGATIVE); CLARITY,URINE CLEAR; COLOR,URINE ORANGE; GLUCOSE, URINE (UA) NEGATIVE (NEGATIVE); KETONES,URINE NEGATIVE (NEGATIVE); LEUKOCYTE ESTERASE ,URINE NEGATIVE (NEGATIVE); NITRITE,URINE NEGATIVE (NEGATIVE); PH,URINE 6.5 (5-9); PROTEIN,URINE NEGATIVE (NEGATIVE)
[2021-11-06 07:03] LABS: BACTERIA,URINE FEW /HPF
[2021-11-06 07:04] LABS: SQUAMOUS EPITHELIAL CELL,UR RARE /HPF
[2021-11-06] MEDS ORDERED: morphine INJ 10 MG/ML 1ML (SYR OR VIAL) IVP STA (07:21)
[2021-11-06] MEDS ORDERED: methylPREDNISolone 125 MG (Solu-MEDROL) VIAL IVP ONE (07:30)
[2021-11-06] MEDS ORDERED: morphine INJ 10 MG/ML 1ML (SYR OR VIAL) ONE (07:31)
[2021-11-06] MEDS ORDERED: OXYC5TAB PO (07:40)
[2021-11-06] MEDS ORDERED: PRED10TA22 PO (07:40)
[2021-11-06 08:10] VITALS: BP 125/49
[2021-11-06 08:10] LABS: MAGNESIUM 1.9 MG/DL (1.6-2.4)
== END 2021-11-06 08:10 | disposition home or self-care (01) ==
LOC: EDUNIT# 04:24 → ER 04:26
DX: K74.3 Primary biliary cirrhosis (principal); K51.918 Ulcerative colitis, unspecified with other complication; E87.6 Hypokalemia; R79.82 Elevated C-reactive protein (CRP); J44.9 Chronic obstructive pulmonary disease, unspecified; E11.9 Type 2 diabetes mellitus without complications; Z79.4 Long term (current) use of insulin; Z99.89 Dependence on other enabling machines and devices
CPT/HCPCS: 36415; 74177; 80053; 81000; 82140; 83690; 83735; 85025; 86141; 87088

== ENCOUNTER 2022-03-29 21:15 | Inpatient (IN) | payer MEDICARE ==
[~2022-03-29] VITALS: Ht 177.8 cm; Wt 115.9 kg
[~2022-03-29 21:15] MED LIST changes: +OXYC5TAB PO; +POTA-177 PO; -POTA10TA37 PO
--- NOTE | 2022-03-29 21:32 | ED General ---
General Chief Complaint: General Problems/Pain Stated Complaint: CONFUSION,BLOODY DIARRHEA Nursing Triage Note: PT ARRIVAL TO ER VIA PRIVATE VEHICLE IN WHEELCHAIR WITH COMPLAINTS OF CONFUSION, DIARRHEA, CHILLS, AND FATIGUE. PATIENT HAS HAD BLOOD IN DIARRHEA FOR THE LAST WEEK. PATIENT BELIEVES THAT HIS AMONIA LEVEL MIGHT BE OFF. PATIENT IS HAVING SOME CONFUSION WHICH IN THE PAST HAS BEEN CAUSED BY THE AMONIA LEVEL. PT HAS HEPATIC ENCEPALOPATHY. History of Present Illness Date Seen by Provider: Mar 29, 2022 Time Seen by Provider: 21:32 Initial Comments 57-year-old male with PMH of ulcerative colitis/end-stage liver disease, is here with complaints of diarrhea for the past few days associated with confusion and malaise and lethargy. Patient's reports that she thought he becomes confused intermittently today. Patient has not been drinking or eating much as per . In the ER patient is able to answer all questions and follow commands without any issues. Patient has generalized abdominal pain which appears to be mild to moderate in nature. Denies chest pain, palpitations, fever, nausea and vomiting, dysuria. Allergies and Home Medications Allergies Coded Allergies: No Known Drug Allergies (Verified , 02/20/19) Patient Home Medication List Home Medication List Reviewed: Yes Amlodipine Besylate (Amlodipine Besylate) 5 Mg Tablet, 5 MG PO DAILY, (Reported) Entered as Reported by: ARGENTINA LATHAM on 07/02/18 1639 Bisoprolol Fumarate (Bisoprolol Fumarate) 10 Mg Tablet, 10 MG PO DAILY, (Reported) Entered as Reported by: ARGENTINA LATHAM on 07/02/18 1639 Citalopram Hydrobromide (Citalopram HBr) 40 Mg Tablet, 40 MG PO DAILY, (Reported) Entered as Reported by: ИВАН MCGHEE on 01/23/20 1656 Ergocalciferol (Vitamin D2) (Vitamin D2) 1,250 Mcg Capsule, 1,250 MCG PO SAT @1200, (Reported) Entered as Reported by: ИВАН MCGHEE on 06/22/20 0911 Furosemide (Furosemide) 40 Mg Tablet, 40 MG PO DAILY, (Reported) Entered as Reported by: ИВАН MCGHEE on 10/15/21 0944 Magnesium Oxide (Magnesium Oxide) 400 Mg Tablet, 400 MG PO BID, (Reported) Entered as Reported by: ИВАН MCGHEE on 10/15/21 0944 Omeprazole (Omeprazole) 40 Mg Capsule.dr, 40 MG PO DAILY, (Reported) Entered as Reported by: ARGENTINA LATHAM on 07/02/18 1639 Oxycodone HCl (Oxycodone HCl) 5 Mg Tablet, 5 MG PO Q6H PRN for PAIN-MODERATE (5- 7) Prescribed by: ROSE ALU on 11/06/21 0740 Potassium Chloride (Potassium Chloride) 10 Meq Capsule.er, 10 MEQ PO 1200, (Reported) Entered as Reported by: ИВАН MCGHEE on 01/23/20 1656 Prednisone (Prednisone) 10 Mg Tab.ds.pk, 10 MG PO DAILY Prescribed by: DIANA BARRIGA on 10/17/21 1106 Prednisone (Prednisone) 10 Mg Tab.ds.pk, 10 MG PO DAILY Prescribed by: ROSE LAU on 11/06/21 0740 Rifaximin (Xifaxan) 550 Mg Tablet, 550 MG PO BID, (Reported) Entered as Reported by: ARGENTINA LATHAM on 07/02/18 1639 Spironolactone (Spironolactone) 50 Mg Tablet, 100 MG PO DAILY, (Reported) Entered as Reported by: ИВАН MCGHEE on 10/15/21 0944 Sulfasalazine (Sulfasalazine) 500 Mg Tablet, 3,000 MG PO HS, (Reported) Entered as Reported by: ИВАН MCGHEE on 01/23/20 1656 Vitamin A (Vitamin A) 2,400 Mcg Capsule, 2,400 MCG PO 1200, (Reported) Entered as Reported by: ИВАН MCGHEE on 03/31/21 1032 Review of Systems Review of Systems Constitutional: malaise EENTM: no symptoms reported Respiratory: no symptoms reported Cardiovascular: no symptoms reported Gastrointestinal: abdominal pain, diarrhea Genitourinary: no symptoms reported Musculoskeletal: no symptoms reported Skin: no symptoms reported Psychiatric/Neurological: Other Hematologic/Lymphatic: No Symptoms Reported Immunological/Allergic: no symptoms reported Past Ntbtfyy-Rsvplh-Dgztqf Hx Patient Social History Tobacco Use?: No Use of E-Cig and/or Vaping dev: No Substance use?: No Alcohol Use?: No Pt feels they are or have been: No Immunizations Up To Date Tetanus Booster (TDap): Unknown Influenza Vaccine Up-to-Date: No; Not Current First/Initial COVID19 Vaccinat: October COVID19 Vaccination Yair: Nov COVID19 Vaccination Date: OCTOBER COVID19 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 Seasonal Allergies Seasonal Allergies: No Past Medical History Surgery/Hospitalization HX: HERE WITHIN THE LAST YEAR, DATES UNKNOWN Surgeries: Yes (colonoscopies) Respiratory: No COPD Currently Using CPAP: Yes Cardiac: Yes Deep Vein Thrombosis, High Cholesterol, Hypertension Neurological: Yes (hepatic encephalopathy) Sexually Transmitted Disease: No HIV/AIDS: No Genitourinary: No Gastrointestinal: Yes Crohns Disease, Esophageal Varices, Cirrhosis Musculoskeletal: Yes Arthritis Endocrine: Yes Diabetes, Insulin dep HEENT: Yes (decreased and wears glasses) Loss of Vision: Bilateral Hearing Impairment: Hard of Hearing Cancer: No Psychosocial: Yes Anxiety Integumentary: Yes Psoriasis Blood Disorders: No Adverse Reaction/Blood Tranf: No (N/A) Family Medical History Cardiovascular disease 19 FATHER Diabetes mellitus 19 FATHER FH: hypertension 19 MOTHER Myocardial infarction 19 FATHER 19 MOTHER G8 BROTHER CAD Over 55 Years Old, Diabetes, Hypertension Physical Exam Vital Signs Vital Signs - First Documented 03/29/22 21:20 Temp 36.7 Pulse 79 Resp 20 B/P (MAP) 121/71 (88) Pulse Ox 99 O2 Delivery Room Air Capillary Refill : Less Than 3 Seconds Height, Weight, BMI Height: 5'10.00" Weight: 289lbs. 0.0oz. 131.842055de; 34.00 BMI Method:Stated General Appearance: No Apparent Distress HEENT: PERRL/EOMI, Normal ENT Inspection Neck: Full Range of Motion Respiratory: Chest Non Tender, Lungs Clear, Normal Breath Sounds, No Accessory Muscle Use, No Respiratory Distress Cardiovascular: Regular Rate, Rhythm, No Edema Gastrointestinal: Normal Bowel Sounds, Soft, Tenderness (Generalized mild tenderness) Back: Normal Inspection, No CVA Tenderness Extremity: Normal Range of Motion Neurologic/Psychiatric: Alert, Oriented x3 (Patient able to answer all questions and follow all commands in the ER), No Motor/Sensory Deficits, Normal 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, 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 Norm as Tested Skin: Normal Color Lymphatic: No Adenopathy Focused Exam Lactate Level 03/29/22 22:03: Lactic Acid Level 1.72 Lactic Acid Level Laboratory Tests Test 03/29/22 22:03 Lactic Acid Level 1.72 MMOL/L (0.50-2.00) Progress/Results/Core Measures Suspected Sepsis SIRS Temperature: Pulse: 79 Respiratory Rate: 20 Laboratory Tests 03/29/22 22:03: White Blood Count 6.0 Blood Pressure 121 /71 Mean: 88 03/29/22 22:03: Lactic Acid Level 1.72 Laboratory Tests 03/29/22 22:03: Creatinine 0.77, INR Comment 1.2, Platelet Count 152, Total Bilirubin 1.7H Results/Orders Lab Results Laboratory Tests Test 03/29/22 22:01 03/29/22 22:03 03/29/22 22:08 03/29/22 23:30 Range/Units Influenza Type A (RT-PCR) Not Detected Not Detecte Influenza Type B (RT-PCR) Not Detected Not Detecte SARS-CoV-2 RNA (RT-PCR) Not Detected Not Detecte White Blood Count 6.0 4.3-11.0 10^3/uL Red Blood Count 4.02 L 4.30-5.52 10^6/uL Hemoglobin 10.2 L 13.3-17.7 g/dL Hematocrit 32 L 40-54 % Mean Corpuscular Volume 79 L 80-99 fL Mean Corpuscular Hemoglobin 25 25-34 pg Mean Corpuscular Hemoglobin Concent 32 32-36 g/dL Red Cell Distribution Width 17.0 H 10.0-14.5 % Platelet Count 152 130-400 10^3/uL Mean Platelet Volume 10.5 9.0-12.2 fL Immature Granulocyte % (Auto) 1 % Neutrophils (%) (Auto) 84 H 42-75 % Lymphocytes (%) (Auto) 4 L 12-44 % Monocytes (%) (Auto) 10 0-12 % Eosinophils (%) (Auto) 1 0-10 % Basophils (%) (Auto) 1 0-10 % Neutrophils # (Auto) 5.0 1.8-7.8 10^3/uL Lymphocytes # (Auto) 0.3 L 1.0-4.0 10^3/uL Monocytes # (Auto) 0.6 0.0-1.0 10^3/uL Eosinophils # (Auto) 0.1 0.0-0.3 10^3/uL Basophils # (Auto) 0.1 0.0-0.1 10^3/uL Immature Granulocyte # (Auto) 0.0 0.0-0.1 10^3/uL Neutrophils % (Manual) 92 % Lymphocytes % (Manual) 2 % Monocytes % (Manual) 6 % Blood Morphology Comment NORMAL Prothrombin Time 16.0 H 12.2-14.7 SEC INR Comment 1.2 0.8-1.4 Activated Partial Thromboplast Time 44 H 24-35 SEC D-Dimer 9.41 H 0.00-0.49 UG/ML Sodium Level 132 L 135-145 MMOL/L Potassium Level 3.2 L 3.6-5.0 MMOL/L Chloride Level 104 98-107 MMOL/L Carbon Dioxide Level 19 L 21-32 MMOL/L Anion Gap 9 5-14 MMOL/L Blood Urea Nitrogen 11 7-18 MG/DL Creatinine 0.77 0.60-1.30 MG/DL Estimat Glomerular Filtration Rate 105 BUN/Creatinine Ratio 14 Glucose Level 137 H 70-105 MG/DL Lactic Acid Level 1.72 0.50-2.00 MMOL/L Calcium Level 7.7 L 8.5-10.1 MG/DL Corrected Calcium 8.9 8.5-10.1 MG/DL Magnesium Level 2.7 H 1.6-2.4 MG/DL Total Bilirubin 1.7 H 0.1-1.0 MG/DL Aspartate Amino Transf (AST/SGOT) 46 H 5-34 U/L Alanine Aminotransferase (ALT/SGPT) 25 0-55 U/L Alkaline Phosphatase 269 H 40-136 U/L Troponin I < 0.028 <0.028 NG/ML B-Type Natriuretic Peptide 65.8 <100.0 PG/ML Total Protein 5.0 L 6.4-8.2 GM/DL Albumin 2.5 L 3.2-4.5 GM/DL Lipase 25 8-78 U/L Procalcitonin 0.48 H <0.10 NG/ML Glucometer 127 H 70-110 MG/DL Urine Color YELLOW Urine Clarity CLEAR Urine pH 6.0 5-9 Urine Specific [place] 1.020 1.016-1.022 Urine Protein NEGATIVE NEGATIVE Urine Glucose (UA) NEGATIVE NEGATIVE Urine Ketones NEGATIVE NEGATIVE Urine Nitrite NEGATIVE NEGATIVE Urine Bilirubin NEGATIVE NEGATIVE Urine Urobilinogen 0.2 < = 1.0 MG/DL Urine Leukocyte Esterase NEGATIVE NEGATIVE Urine RBC (Auto) TRACE-I H NEGATIVE Urine RBC NONE /HPF Urine WBC NONE /HPF Urine Crystals NONE /LPF Urine Bacteria NEGATIVE /HPF Urine Casts NONE /LPF Urine Mucus NEGATIVE /LPF Urine Culture Indicated NO Urine Opiates Screen NEGATIVE NEGATIVE Urine Oxycodone Screen NEGATIVE NEGATIVE Urine Methadone Screen NEGATIVE NEGATIVE Urine Propoxyphene Screen NEGATIVE NEGATIVE Urine Barbiturates Screen NEGATIVE NEGATIVE Ur Tricyclic Antidepressants Screen NEGATIVE NEGATIVE Urine Phencyclidine Screen NEGATIVE NEGATIVE Urine Amphetamines Screen NEGATIVE NEGATIVE Urine Methamphetamines Screen NEGATIVE NEGATIVE Urine Benzodiazepines Screen NEGATIVE NEGATIVE Urine Cocaine Screen NEGATIVE NEGATIVE Urine Cannabinoids Screen NEGATIVE NEGATIVE My Orders Orders - KAMI VALVERDE MD Ct Abdomen/Pelvis W (03/29/22 21:52) Ct Head Wo (03/29/22 21:52) Bnp [place] (03/29/22 21:53) Cbc With Automated Diff (03/29/22 21:53) Comprehensive Metabolic Panel (03/29/22 21:53) Fibrin Degradation Products (03/29/22 21:53) Lactic Acid Analyzer (03/29/22 21:53) Lipase (03/29/22 21:53) Magnesium (03/29/22 21:53) Procalcitonin (Pct) (03/29/22 21:53) Protime With Inr (03/29/22 21:53) Partial Thromboplastin Time (03/29/22 21:53) Ua Culture If Indicated (03/29/22 21:53) Accucheck Stat ONCE (03/29/22 21:53) Troponin I Radha (03/29/22 21:53) Ed Iv/Invasive Line Start (03/29/22 21:54) Ns Iv 1000 Ml (Sodium Chloride 0.9%) (03/29/22 22:00) Covid 19 Inhouse Test (03/29/22 21:54) Influenza A And B By Pcr (03/29/22 21:54) Pantoprazole Injection (Protonix Injecti (03/29/22 22:00) Ns (Ivpb) (Sodium C... W/Pantoprazole In (03/29/22 21:55) Fecal Occult Bedside (03/29/22 21:56) Manual Differential (03/29/22 22:03) Ns (Ivpb) (Sodium C... W/Pantoprazole In (03/29/22 22:30) Ct Angio Chest W (03/30/22 00:04) Iohexol Injection (Omnipaque 350 Mg/Ml 1 (03/30/22 00:30) Received Contrast (Hold Metformin- Contr (03/30/22 00:30) Ns (Ivpb) (Sodium Chloride 0.9% Ivpb Bag (03/30/22 00:30) Chest 1 View, Ap/Pa Only (03/30/22 00:01) Iohexol Injection (Omnipaque 350 Mg/Ml 1 (03/30/22 01:15) Di Iv Start (Assessment) .IV start (03/30/22 01:01) Received Contrast (Hold Metformin- Contr (03/30/22 01:15) Ns (Ivpb) (Sodium Chloride 0.9% Ivpb Bag (03/30/22 01:15) Drug Screen Stat (Urine) (03/29/22 23:30) Occult Blood Stool (03/29/22 UNK) Enoxaparin Injection (Lovenox Injection) (03/30/22 02:37) Fecal Occult Bedside (03/30/22 02:58) Ammonia (03/30/22 03:03) Methylprednisolone Sod Succ (Solu-Medrol (03/30/22 03:45) Ed Admission (Communication) (03/30/22 03:47) Ceftriaxone 1 Gm Pre-Mix (Rocephin 1 Gm (03/30/22 03:47) Medications Given in ED Current Medications Medications Dose Ordered Sig/Vesta Route Start Time Stop Time Status Last Admin Dose Admin Iohexol 100 ml ONCE ONCE IV 03/30/22 00:30 03/30/22 00:33 DC 03/30/22 00:31 100 ML Iohexol 100 ml ONCE ONCE IV 03/30/22 01:15 03/30/22 01:16 DC 03/30/22 01:03 80 ML Methylprednisolone Sodium Succinate 40 mg ONCE ONCE IV 03/30/22 03:45 03/30/22 03:46 DC 03/30/22 04:09 40 MG Pantoprazole 80 mg ONCE ONCE IV 03/29/22 22:00 03/29/22 22:01 DC 03/29/22 22:17 80 MG Sodium Chloride 100 ml ONCE ONCE IV 03/30/22 00:30 03/30/22 00:33 DC 03/30/22 00:31 80 ML Sodium Chloride 100 ml ONCE ONCE IV 03/30/22 01:15 03/30/22 01:16 DC 03/30/22 01:04 80 ML Vital Signs/I&O 03/29/22 21:20 Temp 36.7 Pulse 79 Resp 20 B/P (MAP) 121/71 (88) Pulse Ox 99 O2 Delivery Room Air Capillary Refill : Less Than 3 Seconds Blood Pressure Mean: 88 Progress Note : Progress Note 1. PULMONARY EMBOLISM: - D-dimer is elevated to 9.41 - CTA CHEST: PE - Lovenox started -Will admit patient. Discussed with Dr. Barriga, hospitalist. 2. END STAGE LIVER DISEASE: ALTERED MENTAL STATUS:( AOx3 in the ER) - CT HEAD: no acute findings - UA is normal - s. ammonia: 3. ULCERATIVE COLITIS EXACERBATION; - CT ABD/ PELVIS: Cirrhosis and proctitis and colitis -Solu-Medrol 40 mg every 6 hours Diagnostic Imaging Diagonstic Imaging: Xray, CT Plain Films/CT/US/NM/MRI: chest Comments CT abdomen shows cirrhosis which is associated with splenic varices with splenorenal shunt and splenomegaly. Mild circumferential wall thickening of the rectum and distal sigmoid colon, measuring up to 6 mm surrounded by prominent mesenteric vessels, suggest proctitis and colitis versus portal hypertension CT chest shows a small pulmonary emboli in segmental pulmonary artery of the left lower lobe. No right heart strain 1.5 cm spiculated nodule of lateral right upper lobe and another 5 mm pulmonary nodule in the lateral right upper lobe Departure Communication (Admissions) Time/Spoke to Admitting Phy: 03:[address] Oden, hospitalist, will admit Impression Primary Impression: Pulmonary embolism Qualified Codes: I26.99 - Other pulmonary embolism without acute cor pulmonale Additional Impression: End-stage liver disease Disposition: 30 STILL A PATIENT Condition: Stable Admissions Decision to Admit Reason: Admit from ER (General) Decision to Admit/Date: Mar 29, 2022 Time/Decision to Admit Time: 02:00 Departure-Patient Inst. Referrals: DIANA BARRIGA DO (PCP/Family) Primary Care Physician KAMI VALVERDE MD Mar 29, 2022 21:32
[2022-03-29] MEDS ORDERED: PANTOPRAZOLE INJECTION 200 MG in NS (IVPB) 100 ML IV STA (21:55)
[2022-03-29] MEDS ORDERED: NS IV 1000 ML 1,000 ML IV SCH (22:00)
[2022-03-29] MEDS ORDERED: PANTOPRAZOLE 40 MG (PROTONIX) VIAL IV ONE (22:00)
[2022-03-29 22:19] LABS: BASOPHILS # (AUTO) 0.1 10^3/uL (0.0-0.1); BASOPHILS % (AUTO) 1 % (0-10); EOSINOPHILS # (AUTO) 0.1 10^3/uL (0.0-0.3); EOSINOPHILS % (AUTO) 1 % (0-10); HEMATOCRIT 32 % (40-54); HEMOGLOBIN 10.2 g/dL (13.3-17.7); LYMPHOCYTES # (AUTO) 0.3 10^3/uL (1.0-4.0); LYMPHOCYTES % (AUTO) 4 % (12-44); MEAN CORPUSCULAR HEMOGLOBIN 25 pg (25-34); MEAN CORPUSCULAR HGB CONC 32 g/dL (32-36); MEAN CORPUSCULAR VOLUME 79 fL (80-99); MEAN PLATELET VOLUME 10.5 fL (9.0-12.2); MONOCYTES # (AUTO) 0.6 10^3/uL (0.0-1.0); MONOCYTES % (AUTO) 10 % (0-12); NEUTROPHILS % (AUTO) 84 % (42-75); PLATELET COUNT 152 10^3/uL (130-400)
[2022-03-29 22:35] LABS: LYMPHOCYTES % (MANUAL) 2 %; MONOCYTES % (MANUAL) 6 %; NEUTROPHILS % (MANUAL) 92 %; RBC MORPH NORMAL
[2022-03-29 22:43] LABS: FIBRIN DEGRADATION PRODUCTS 9.41 UG/ML (0.00-0.49); INR 1.2 (0.8-1.4)
[2022-03-29 22:49] LABS: ALANINE AMINOTRANSFERASE 25 U/L (0-55); ALBUMIN 2.5 GM/DL (3.2-4.5); ALKALINE PHOSPHATASE 269 U/L (40-136); BILIRUBIN,TOTAL 1.7 MG/DL (0.1-1.0); BUN/CREATININE RATIO 14; CALCIUM 7.7 MG/DL (8.5-10.1); CARBON DIOXIDE 19 MMOL/L (21-32); CHLORIDE 104 MMOL/L (98-107); CREATININE SERUM 0.77 MG/DL (0.60-1.30); GFR ESTIMATED 105; GLUCOSE 137 MG/DL (70-105); LIPASE 25 U/L (8-78); MAGNESIUM 2.7 MG/DL (1.6-2.4); POTASSIUM 3.2 MMOL/L (3.6-5.0); SODIUM 132 MMOL/L (135-145)
[2022-03-29] MEDS: NS IV SCH (23:30)
[2022-03-29] MEDS: PANTOPRAZOLE IV SCH (23:30)
[2022-03-29 23:38] LABS: BILIRUBIN,URINE NEGATIVE (NEGATIVE); CLARITY,URINE CLEAR; COLOR,URINE YELLOW; GLUCOSE, URINE (UA) NEGATIVE (NEGATIVE); KETONES,URINE NEGATIVE (NEGATIVE); LEUKOCYTE ESTERASE ,URINE NEGATIVE (NEGATIVE); NITRITE,URINE NEGATIVE (NEGATIVE); PROTEIN,URINE NEGATIVE (NEGATIVE)
[2022-03-30 00:02] LABS: BACTERIA,URINE NEGATIVE /HPF
[2022-03-30] MEDS ORDERED: IOHEXOL 350 MG/ML 100 ML (OMNIPAQUE 350) VIAL IV ONE ×2 (00:30→01:15)
[2022-03-30] MEDS ORDERED: NS 100 ML (IVPB) BAG IV ONE ×2 (00:30→01:15)
[2022-03-30] MEDS ORDERED: HOLD METFORMIN - RECEIVED CONTRAST 20 ML VIAL IV SCH ×2 (00:30→01:15)
[2022-03-30 01:43] LABS: AMPHETAMINE SCREEN, URINE NEGATIVE (NEGATIVE); BARBITURATE SCREEN URINE NEGATIVE (NEGATIVE); BENZODIAZEPINES SCREEN URINE NEGATIVE (NEGATIVE); CANNABINOID SCREEN, URINE NEGATIVE (NEGATIVE); COCAINE SCREEN URINE NEGATIVE (NEGATIVE); METHADONE STAT NEGATIVE (NEGATIVE); OPIATE SCREEN URINE NEGATIVE (NEGATIVE); OXYCODONE STAT NEGATIVE (NEGATIVE); PROPOXYPHENE STAT NEGATIVE (NEGATIVE); TRICYCLIC ANTIDEPRESSANTS SCRE NEGATIVE (NEGATIVE)
[2022-03-30] MEDS ORDERED: ENOXAPARIN 100 MG/1 ML (LOVENOX) SYR SC STA (02:37)
[2022-03-30] MEDS ORDERED: methylPREDNISolone 40 MG/ML (Solu-MEDROL) VIAL IV ONE (03:45)
[2022-03-30] MEDS ORDERED: cefTRIAXone 1 GM PRE-MIX 50 ML IV STA (03:47)
--- NOTE | 2022-03-30 05:34 | Diagnostic Imaging Report ---
INDICATION: Altered mental status. COMPARISON: 10/14/2021 FINDINGS: Single frontal radiographic view of the chest was obtained and shows normal cardiac silhouette. Pulmonary vasculature is slightly prominent. Grady B-lines are noted. The lungs are otherwise clear. There is no focal consolidation, large effusion, nor pneumothorax. Osseous structures show no acute abnormalities. IMPRESSION: 1. Probable mild vascular congestion. Dictated by: Dictated on workstation # [id number]
--- NOTE | 2022-03-30 07:10 | Diagnostic Imaging Report ---
PROCEDURE: CT abdomen and pelvis with contrast. TECHNIQUE: Multiple contiguous axial images were obtained through the abdomen and pelvis after administration of intravenous contrast. Auto Exposure Controls were utilized during the CT exam to meet ALARA standards for radiation dose reduction. All CT scans use one or more of the following dose optimizing techniques: automated exposure control, MA and/or KvP adjustment based on patient size and exam type or iterative reconstruction. INDICATION: Lower gastrointestinal bleed. FINDINGS: Cirrhotic changes of the liver again noted. Bile ducts are not dilated. Pancreas is normal. There is splenomegaly with portal hypertension with multiple abdominal varices. The adrenal glands are not enlarged. The kidneys appear normal. Aorta shows atherosclerotic change without aneurysm. Stomach and small bowel are not distended. Colon shows normal stool and gas pattern. Bladder is nondistended. No free air or free fluid. No bony abnormalities. There is noted some hyperdense artifact in the small bowel in the mid abdomen. This does not have the typical appearance of contrast extravasating into the bowel. This is uncertain in etiology. This was not present on the previous exam. IMPRESSION: 1. Cirrhotic changes of the liver with portal hypertension and splenomegaly with abdominal varices. 2. Hyperdense enhancement in the distal small bowel in the lower abdomen of uncertain significance is a new finding. This does not have the typical appearance of extravasated contrast into the bowel. Dictated by: Dictated on workstation # [id number]
--- NOTE | 2022-03-30 07:36 | Diagnostic Imaging Report ---
INDICATION: AMS TECHNIQUE: Routine non contrast-enhanced axial images were obtained from the skull base to the vertex. Auto Exposure Controls were utilized during the CT exam to meet ALARA standards for radiation dose reduction COMPARISON: None. FINDINGS: The ventricles and cortical sulci are age-appropriate. There is no midline shift or mass-effect. No acute intra-axial hemorrhage is seen. There are no abnormal areas of increased or decreased density to suggest acute hemorrhage or edema. No extra-axial masses or collections are present. The bony calvarium is intact. The visualized paranasal sinuses show opacification of the right sphenoid sinus and small amount of debris within the left sinus. The mastoid air cells are clear. IMPRESSION: 1. No acute intracranial abnormality. No CT evidence of mass, acute infarct or intracranial hemorrhage. Dictated by: Dictated on workstation # [id number]
--- NOTE | 2022-03-30 07:52 | Diagnostic Imaging Report ---
PROCEDURE: CT angiography of the chest with contrast. TECHNIQUE: Multiple contiguous axial images were obtained through the chest after uneventful bolus administration of intravenous contrast. 3D reconstructed CTA MIP acquisitions were also performed. Auto Exposure Controls were utilized during the CT exam to meet ALARA standards for radiation dose reduction. INDICATION: Altered mental status. End-stage liver disease. FINDINGS: Good opacification of the pulmonary arteries. There is an isolated small pulmonary nodule in the segmental branch of the left lower lobe. Remaining pulmonary arteries are well-opacified. The lungs show a 1.5 cm spiculated nodule in the right upper lobe. Minimal atherosclerotic disease of the aorta. No evidence of aneurysm. No mediastinal or hilar adenopathy. No pleural effusion or pericardial effusion. There is splenomegaly. Liver has a somewhat nodular appearance suggesting cirrhotic change. IMPRESSION: 1. Isolated small pulmonary embolus single segmental branch left lower lobe. 2. Spiculated nodule in the right upper lobe measuring 1.5 cm. No associated adenopathy. These findings are concordant with the preliminary report. Dictated by: Dictated on workstation # [id number]
[2022-03-30] MEDS ORDERED: ANTACID SUSP 30 ML UDC (MYLANTA) PO PRN (08:00)
[2022-03-30] MEDS ORDERED: CALCIUM CARBONATE 500 MG (TUMS) TAB.CHEW PO PRN (08:00)
[2022-03-30] MEDS ORDERED: MELATONIN 3 MG TABLET PO PRN ×2 (08:00)
[2022-03-30] MEDS ORDERED: diphenhydrAMINE 50 MG/ML INJ (BENADRYL) IVP PRN (08:00)
[2022-03-30] MEDS ORDERED: ENOXAPARIN 100 MG/1 ML (LOVENOX) SYR SC SCH (08:00)
[2022-03-30] MEDS ORDERED: BISACODYL 10 MG SUPP (DULCOLAX) PR PRN (08:00)
[2022-03-30] MEDS ORDERED: ACETAMINOPHEN 325 MG TABLET PO PRN (08:00)
[2022-03-30] MEDS ORDERED: diphenhydrAMINE 25 MG TAB (BENADRYL) PO PRN (08:00)
[2022-03-30] MEDS ORDERED: LACTULOSE SYRUP 10GM/15ML (ENULOSE) 30ML UDC PO PRN (08:00)
[2022-03-30] MEDS ORDERED: methylPREDNISolone 40 MG/ML (Solu-MEDROL) VIAL IV SCH ×2 (08:00→12:00)
[2022-03-30] MEDS ORDERED: polyethylene glycoL POWDER 17 GM (MIRALAX) PACK PO PRN (08:00)
[2022-03-30] MEDS ORDERED: ONDANSETRON 4 MG/2 ML (SDV) Z0FRAN IV PRN (08:00)
[2022-03-30] MEDS ORDERED: MILK OF MAGNESIA 400 MG/5 ML 30 ML UDC PO PRN (08:00)
[2022-03-30] MEDS ORDERED: ONDANSETRON 4 MG (ZOFRAN) ORAL DISSOLVE TAB PO PRN (08:00)
[2022-03-30] MEDS ORDERED: cefTRIAXone 1 GM IV (PRE-MIX) 50 ML IV SCH (08:00)
[2022-03-30] MEDS ORDERED: NS IV 1000 ML 1,000 ML IV SCH (08:15)
[2022-03-30 08:40] VITALS: BP 121/71
[2022-03-30] MEDS ORDERED: RT-ALBUTEROL SULF 2.5 MG/3 ML PRE-MIX VIAL INH PRN (08:45)
[2022-03-30 09:12] VITALS: BP 115/55
[2022-03-30 10:56] LABS: BASOPHILS % (AUTO) 0 % (0-10); EOSINOPHILS % (AUTO) 0 % (0-10); HEMATOCRIT 30 % (40-54); HEMOGLOBIN 9.8 g/dL (13.3-17.7); LYMPHOCYTES # (AUTO) 0.3 10^3/uL (1.0-4.0); LYMPHOCYTES % (AUTO) 5 % (12-44); MEAN CORPUSCULAR HEMOGLOBIN 26 pg (25-34); MEAN CORPUSCULAR HGB CONC 33 g/dL (32-36); MEAN CORPUSCULAR VOLUME 78 fL (80-99); MEAN PLATELET VOLUME 10.6 fL (9.0-12.2); MONOCYTES # (AUTO) 0.3 10^3/uL (0.0-1.0); MONOCYTES % (AUTO) 5 % (0-12); NEUTROPHILS # (AUTO) 5.1 10^3/uL (1.8-7.8); NEUTROPHILS % (AUTO) 89 % (42-75); PLATELET COUNT 142 10^3/uL (130-400); WHITE BLOOD COUNT 5.7 10^3/uL (4.3-11.0)
[2022-03-30] MEDS: KCL 20 MEQ TAB (K-DUR) PO SCH ×2 (11:11→16:56)
[2022-03-30] MEDS: NS IV 1000 ML 1,000 ML IV SCH ×2 (11:12→21:58)
[2022-03-30] MEDS: methylPREDNISolone 40 MG/ML (Solu-MEDROL) VIAL IV SCH ×3 (11:12→21:58)
[2022-03-30] MEDS: DOCUSATE SODIUM 100 MG (COLACE) CAP PO SCH ×2 (11:12→19:58)
[2022-03-30] MEDS: SENNOSIDES 8.6 MG (SENOKOT) TAB PO SCH ×2 (11:13→19:59)
[2022-03-30] MEDS ORDERED: OXC5T PO (11:19)
[2022-03-30] MEDS ORDERED: VITA-203 PO (11:19)
[2022-03-30] MEDS ORDERED: PRD10T PO (11:19)
--- NOTE | 2022-03-30 11:19 | History & Physical ---
History of Present Illness HPI/Chief Complaint CC: Confusion with pulmonary embolism HPI: This is a 57 yr old male with a history of cirrhosis. He is my clinic pt for the past many years. He sees hepatology at . He also has a history of ulcerative colitis. He presented to the ER with confusion. He was found to have elevated D-Dimer and CT scan showed pulmonary embolism. Abdomen and pelvis showed colitis. Elevated procalcitonin at 0.[address] Kiser consult. He will need a filter placed due to history of being on Eliquis and having hematochezia from the colitis making it convert over to hepatic encephalopathy. We will monitor pt closely. Source: patient Exam Limitations: no limitations Date Seen 03/30/22 Time Seen by a Provider: 10:00 Attending Physician Ivonne Casas DO PCP Admitting Physician: Ivonne Casas DO Attending Physician: Ivonne Casas DO Referring Physician Date of Admission Mar 30, 2022 at 06:00 Home Medications & Allergies Home Medications Reviewed patient Home Medication Reconciliation performed by pharmacy medication reconciliations location and measurement technician and/or nursing. Patients Allergies have been reviewed. Allergies Allergies Coded Allergies No Known Drug Allergies (Qphddiom59/23/19) Past Oedlwez-Dvsrdu-Chkpxy Hx Past Med/Social Hx: Reviewed Nursing Past Med/Soc Hx, Reviewed and Corrections made Patient Social History Marrital Status: Employed/Student: retired Alcohol Use: Denies Use Smoking Status: Former Smoker Former Smoker, Quit: May 01, 2015 Type Used: Cigarettes 2nd Hand Smoke Exposure: No Recent Hopitalizations: No Immunizations Up To Date Tetanus Booster (TDap): Unknown Date of Influenza Vaccine: Dec 30, 2020 Seasonal Allergies Seasonal Allergies: No Past Medical History Fatty tumor removal from arms, R ulnar transposition Respiratory: COPD, Sleep Apnea Currently Using CPAP: Yes Cardiac: Deep Vein Thrombosis, High Cholesterol, Hypertension Sexually Transmitted Disease: No HIV/AIDS: No Gastrointestinal: Crohns Disease, Esophageal Varices, Cirrhosis Musculoskeletal: Arthritis Endocrine: Diabetes, Insulin dep Loss of Vision: Bilateral Hearing Impairment: Hard of Hearing Psychosocial: Anxiety Skin/Integumentary: Psoriasis History of Blood Disorders: No Adverse Reaction to Blood Jackson: No (N/A) Family History Cardiovascular disease 19 FATHER Diabetes mellitus 19 FATHER FH: hypertension 19 MOTHER Myocardial infarction 19 FATHER 19 MOTHER G8 BROTHER CAD Over 55 Years Old, Diabetes, Hypertension Review of Systems Constitutional: see HPI, dizziness, malaise, weakness EENTM: no symptoms reported Respiratory: no symptoms reported Cardiovascular: no symptoms reported Gastrointestinal: no symptoms reported Genitourinary: no symptoms reported Musculoskeletal: no symptoms reported Skin: no symptoms reported Psychiatric/Neurological: No Symptoms Reported All Other Systems Reviewed Negative Unless Noted: Yes Physical Exam Physical Exam Vital Signs Vital Signs - First Documented 03/29/22 03/30/22 21:20 08:40 Temp 36.7 Pulse 79 Resp 20 B/P (MAP) 121/71 (88) Pulse Ox 99 O2 Delivery Room Air FiO2 21 Capillary Refill : Less Than 3 Seconds Height, Weight, BMI Height: 5'10.00" Weight: 289lbs. 0.0oz. 131.347476qd; 36.37 BMI Method:Stated General Appearance: No Apparent Distress, Chronically ill, Obese HEENT: PERRL/EOMI, Normal ENT Inspection Neck: Full Range of Motion Respiratory: Chest Non Tender, Lungs Clear, Normal Breath Sounds, No Accessory Muscle Use, No Respiratory Distress Cardiovascular: Regular Rate, Rhythm, No Edema Gastrointestinal: Normal Bowel Sounds, Soft, Tenderness (Generalized mild tenderness) Back: Normal Inspection, No CVA Tenderness Extremity: Normal Range of Motion Neurologic/Psychiatric: Alert, Oriented x3 (Patient able to answer all questions and follow all commands in the ER), No Motor/Sensory Deficits, Normal Mood/Affect, puller over II-XII Norm as Tested Skin: Normal Color Lymphatic: No Adenopathy Results Results/Procedures Labs Laboratory Tests 03/29/22 22:03 03/30/22 10:50 Patient resulted labs reviewed. Assessment/Plan Admission Diagnosis Assessment: Hepatic encephalopathy Flare of colitis Acute PE with right leg DVT recurrent in nature Cirrhosis HTN COPD Former smoker Plan: Lovenox Home meds Monitor closely Needs filter Consult surgery Admission Status: Inpatient Order (span 2 midnights) Reason for Inpatient Admission: PE with cirrhosis Diagnosis/Problems Diagnosis/Problems (1) Pulmonary embolism Status: Acute Qualifiers: Pulmonary embolism type: unspecified Chronicity: acute Acute cor pulmonale presence: unspecified Qualified Codes: I26.99 - Other pulmonary embolism without acute cor pulmonale (2) End-stage liver disease Status: Acute (3) Hypokalemia (4) Primary biliary cholangitis Status: Acute (5) Ulcerative colitis Status: Chronic (6) Hepatic encephalopathy Status: Acute (7) Essential (primary) hypertension Status: Chronic Clinical Quality Measures DVT/VTE Risk/Contraindication: Contraindications-Mechi: Other *list below* Other: dvt IVONNE CASAS DO Mar 30, 2022 11:19
[2022-03-30 11:26] VITALS: BP 112/62
[2022-03-30 11:38] LABS: ALBUMIN 2.4 GM/DL (3.2-4.5); BILIRUBIN,TOTAL 1.4 MG/DL (0.1-1.0); CALCIUM 7.7 MG/DL (8.5-10.1); CREATININE SERUM 0.68 MG/DL (0.60-1.30); POTASSIUM 3.2 MMOL/L (3.6-5.0); TOTAL PROTEIN 4.8 GM/DL (6.4-8.2)
--- NOTE | 2022-03-30 11:53 | Consultation - Surgery ---
ANA ONEILL 03/30/22 1153: History of Present Illness History of Present Illness Patient Consulted On(sindhu/time) 03/30/22 11:52 History of Present Illness Patient seen in consult from Dr. Barriga for Pulmonary Embolism and Cirrhosis 57 year old male with a past medical history of cirrhosis, ulcerative colitis presented to [facility] ER with a chief complaint of bloody diarrhea for one week and worsening confusion. Patient's states that when she came home from work yesterday patient's mental status had declined and they decided to come to the hospital. Patient has been hospitalized for hepatic encephalopathy before. Patient states that he had also been having hematochezia that had been progressively worsening. Patient also endorsed Nausea, vomiting, lethargy, peripheral edema. Patient does state that today he does feel better and that he had diarrhea this morning with no visible blood in it. In the ER patient was found to have an elevated D-dimer and upon further imaging was found to have a PE in the lower lobe of the left lung. After admission, patient was also found to have a DVT on Doppler. Patient is not on oral coagulation at home after failing trials of it, due to bleeding during ulcerative colitis flare ups. Allergies and Home Medications Allergies Coded Allergies: No Known Drug Allergies (Verified , 02/20/19) Patient Home Medication List Home Medication List Reviewed: Yes Amlodipine Besylate (Amlodipine Besylate) 5 Mg Tablet, 5 MG PO DAILY, (Reported) Entered as Reported by: ARGENTINA LATHAM on 07/02/181638 Last Action: Reviewed Bisoprolol Fumarate (Bisoprolol Fumarate) 10 Mg Tablet, 10 MG PO DAILY, (Reported) Entered as Reported by: ARGENTINA LATHAM on 07/02/18 163 Last Action: Reviewed Citalopram Hydrobromide (Citalopram HBr) 40 Mg Tablet, 40 MG PO HS, (Reported) Entered as Reported by: ИВАН MCGHEE on 01/23/20 1656 Last Action: Reviewed Ergocalciferol (Vitamin D2) (Vitamin D2) 1,250 Mcg Capsule, 1,250 MCG PO SAT @1200, (Reported) Entered as Reported by: ИВАН MCGHEE on 06/22/20 0911 Last Action: Reviewed Furosemide (Furosemide) 40 Mg Tablet, 40 MG PO DAILY, (Reported) Entered as Reported by: ИВАН MCGHEE on 6/17/22 0944 Last Action: Reviewed Magnesium Oxide (Magnesium Oxide) 400 Mg Tablet, 400 MG PO BID, (Reported) Entered as Reported by: ИВАН MCGHEE on 10/15/21943 Last Action: Reviewed Omeprazole (Omeprazole) 40 Mg Capsule.dr, 40 MG PO DAILY, (Reported) Entered as Reported by: ARGENTINA LATHAM on 07/02/181638 Last Action: Reviewed Oxycodone Hcl (Oxyir Tablet) 5 Mg Tab, 5 MG PO BID PRN for PAIN-SEVERE (8-10), (Reported) Entered as Reported by: ИВАН MCGHEE on 03/30/221118 Last Action: Reviewed Potassium Chloride (Potassium Chloride) 10 Meq Capsule.er, 10 MEQ PO 1200, (Reported) Entered as Reported by: ИВАН MCGHEE on 01/23/201655 Last Action: Reviewed Prednisone (Prednisone) 10 Mg Tab, 20 MG PO DAILY, (Reported) Entered as Reported by: ИВАН MCGHEE on 03/30/221118 Last Action: Reviewed Rifaximin (Xifaxan) 550 Mg Tablet, 550 MG PO BID, (Reported) Entered as Reported by: ARGENTINA LATHAM on 07/02/181638 Last Action: Reviewed Spironolactone (Spironolactone) 50 Mg Tablet, 100 MG PO DAILY, (Reported) Entered as Reported by: ИВАН MCGHEE on 10/15/21943 Last Action: Reviewed Sulfasalazine (Sulfasalazine) 500 Mg Tablet, 3,000 MG PO HS, (Reported) Entered as Reported by: ИВАН MCGHEE on 01/23/201655 Last Action: Reviewed Vitamin A Palmitate (Vitamin A) 10,000 Unit Capsule, 10,000 UNIT PO 1200, (Reported) Entered as Reported by: ИВАН MCGHEE on 03/30/221118 Last Action: Reviewed Discontinued Medications Oxycodone HCl (Oxycodone HCl) 5 Mg Tablet, 5 MG PO Q6H PRN for PAIN-MODERATE (5- 7) Discontinued Reason: No Longer Taking Prescribed by: ROSE LAU on 11/06/21 0740 Last Action: Discontinued Prednisone (Prednisone) 10 Mg Tab.ds.pk, 10 MG PO DAILY Discontinued Reason: No Longer Taking Prescribed by: DIANA BARRIGA on 10/17/21 1106 Last Action: Discontinued Prednisone (Prednisone) 10 Mg Tab.ds.pk, 10 MG PO DAILY Discontinued Reason: No Longer Taking Prescribed by: ROSE LAU on 11/06/21 0740 Last Action: Discontinued Vitamin A (Vitamin A) 2,400 Mcg Capsule, 2,400 MCG PO 1200, (Reported) Discontinued Reason: Prescription changed Entered as Reported by: ИВАН MCGHEE on 03/31/21 1032 Past Hhuxwuq-Dkdyww-Tuiwtq Hx Patient Social History Smoking Status: Former Smoker (quit 6 years ago, smoked 1PPD for decades) Former Smoker, Quit: May 01, 2015 Type Used: Cigarettes 2nd Hand Smoke Exposure: No Recent Hopitalizations: No Alcohol Use?: No Have you traveled recently?: No Immunizations Up To Date Tetanus Booster (TDap): Unknown Date of Influenza Vaccine: Dec 30, 2020 Seasonal Allergies Seasonal Allergies: No Surgeries History of Surgeries: Yes (colonoscopies, lipoma removal ) Respiratory History of Respiratory Disorde: No Cardiovascular History of Cardiac Disorders: Yes Cardiac Disorders: Deep Vein Thrombosis, High Cholesterol, Hypertension Neurological History of Neurological Disord: Yes (hepatic encephalopathy) Reproductive System Sexually Transmitted Disease: No HIV/AIDS: No Genitourinary History of Genitourinary Disor: No Gastrointestinal History of Gastrointestinal Di: Yes Gastrointestinal Disorders: Crohns Disease (UC, not crohns), Esophageal Varices, Cirrhosis Musculoskeletal History of Musculoskeletal Dis: Yes Musculoskeletal Disorders: Arthritis (Degenerative disc disease ) Endocrine History of Endocrine Disorders: Yes Endocrine Disorders: Diabetes, Insulin dep HEENT History of HEENT Disorders: Yes (Presbyopia, Lateral Strabismus of R eye ) Loss of Vision: Bilateral Hearing Impairment: Hard of Hearing Cancer History of Cancer: No Psychosocial History of Psychiatric Problem: Yes Behavioral Health Disorders: Anxiety, Depression Integumentary History of Skin or Integumenta: Yes Skin/Integumentary Disorders: Psoriasis Blood Transfusions History of Blood Disorders: No Adverse Reaction to a Blood Tr: No (N/A) Family Medical History Significant Family History: Cancer (pancreatic ), CAD Over 55 Years Old, Diabetes, Hypertension Family Medial History: Cardiovascular disease 19 FATHER Diabetes mellitus 19 FATHER FH: hypertension 19 MOTHER Myocardial infarction 19 FATHER 19 MOTHER G8 BROTHER Review of Systems-General Constitutional: No chills, No diaphoresis, No dizziness, No fever EENTM: No blurred vision, No double vision, No eye pain Respiratory: No cough, No dyspnea on exertion Cardiovascular: No chest pain, No palpitations Gastrointestinal: No abdominal pain, No constipation; diarrhea; No melena Genitourinary: No dysuria, No frequency Musculoskeletal: back pain (chronic) Skin: No change in color, No change in hair/nails Psychiatric/Neurological: Denies Anxiety, Denies Depressed Physical Exam-General Problems Physical Exam Vital Signs Vital Signs - First Documented 03/29/22 03/30/22 21:20 08:40 Temp 36.7 Pulse 79 Resp 20 B/P (MAP) 121/71 (88) Pulse Ox 99 O2 Delivery Room Air FiO2 21 Capillary Refill : Less Than 3 Seconds General Appearance: no apparent distress, obese HEENT: PERRL/EOMI Neck: non-tender, supple Respiratory: lungs clear, normal breath sounds, no respiratory distress, no accessory muscle use Cardiovascular: regular rate, rhythm, systolic murmur (sounds blowing, does not radiate to carotids ) Gastrointestinal: non tender, soft; No guarding, No tenderness Extremities: no pedal edema, normal capillary refill Neurologic/Psychiatric: alert, oriented x 3 Skin: normal color, warm/dry Data Review Labs Laboratory Tests 03/29/22 22:01: Influenza Type A (RT-PCR) Not Detected, Influenza Type B (RT-PCR) Not Detected, SARS-CoV-2 RNA (RT-PCR) Not Detected 03/29/22 22:03: White Blood Count 6.0, Red Blood Count 4.02L, Hemoglobin 10.2L, Hematocrit 32L, Mean Corpuscular Volume 79L, Mean Corpuscular Hemoglobin 25, Mean Corpuscular Hemoglobin Concent 32, Red Cell Distribution Width 17.0H, Platelet Count 152, Mean Platelet Volume 10.5, Immature Granulocyte % (Auto) 1, Neutrophils (%) (Auto) 84H, Lymphocytes (%) (Auto) 4L, Monocytes (%) (Auto) 10, Eosinophils (%) (Auto) 1, Basophils (%) (Auto) 1, Neutrophils # (Auto) 5.0, Lymphocytes # (Auto) 0.3L, Monocytes # (Auto) 0.6, Eosinophils # (Auto) 0.1, Basophils # (Auto) 0.1, Immature Granulocyte # (Auto) 0.0, Neutrophils % (Manual) 92, Lymphocytes % (Manual) 2, Monocytes % (Manual) 6, Blood Morphology Comment NORMAL, Prothrombin Time 16.0H, INR Comment 1.2, Activated Partial Thromboplast Time 44H, D-Dimer 9.41H, Sodium Level 132L, Potassium Level 3.2L, Chloride Level 104, Carbon Dioxide Level 19L, Anion Gap 9, Blood Urea Nitrogen 11, Creatinine 0.77, Estimat Glomerular Filtration Rate 105, BUN/Creatinine Ratio 14, Glucose Level 137H, Lactic Acid Level 1.72, Calcium Level 7.7L, Corrected Calcium 8.9, Magnesium Level 2.7H, Total Bilirubin 1.7H, Aspartate Amino Transf (AST/SGOT) 46H, Alanine Aminotransferase (ALT/SGPT) 25, Alkaline Phosphatase 269H, Troponin I < 0.028, B-Type Natriuretic Peptide 65.8, Total Protein 5.0L, Albumin 2.5L, Lipase 25, Procalcitonin 0.48H 03/29/22 22:08: Glucometer 127H 03/29/22 23:30: Urine Color YELLOW, Urine Clarity CLEAR, Urine pH 6.0, Urine Specific [place] 1.020, Urine Protein NEGATIVE, Urine Glucose (UA) NEGATIVE, Urine Ketones NEGATIVE, Urine Nitrite NEGATIVE, Urine Bilirubin NEGATIVE, Urine Urobilinogen 0.2, Urine Leukocyte Esterase NEGATIVE, Urine RBC (Auto) TRACE-IH, Urine RBC NONE, Urine WBC NONE, Urine Crystals NONE, Urine Bacteria NEGATIVE, Urine Casts NONE, Urine Mucus NEGATIVE, Urine Culture Indicated NO, Urine Opiates Screen N EGATIVE, Urine Oxycodone Screen NEGATIVE, Urine Methadone Screen NEGATIVE, Urine Propoxyphene Screen NEGATIVE, Urine Barbiturates Screen NEGATIVE, Ur Tricyclic Antidepressants Screen NEGATIVE, Urine Phencyclidine Screen NEGATIVE, Urine Amphetamines Screen NEGATIVE, Urine Methamphetamines Screen NEGATIVE, Urine Benzodiazepines Screen NEGATIVE, Urine Cocaine Screen NEGATIVE, Urine Ca nnabinoids Screen NEGATIVE 03/30/22 05:16: Ammonia 52H 03/30/22 10:50: White Blood Count 5.7, Red Blood Count 3.84L, Hemoglobin 9.8L, Hematocrit 30L, Mean Corpuscular Volume 78L, Mean Corpuscular Hemoglobin 26, Mean Corpuscular Hemoglobin Concent 33, Red Cell Distribution Width 16.9H, Platelet Count 142, Mean Platelet Volume 10.6, Immature Granulocyte % (Auto) 1, Neutrophils (%) (Auto) 89H, Lymphocytes (%) (Auto) 5L, Monocytes (%) (Auto) 5, Eosinophils (%) (Auto) 0, Basophils (%) (Auto) 0, Neutrophils # (Auto) 5.1, Lymphocytes # (Auto) 0.3L, Monocytes # (Auto) 0.3, Eosinophils # (Auto) 0.0, Basophils # (Auto) 0.0, Immature Granulocyte # (Auto) 0.0, Sodium Level 135, Potassium Level 3.2L, Chloride Level 108H, Carbon Dioxide Level 17L, Anion Gap 10, Blood Urea Nitrogen 10, Creatinine 0.68, Estimat Glomerular Filtration Rate 109, BUN/Creatinine Ratio 15, Glucose Level 217H, Calcium Level 7.7L, Corrected Calcium 9.0, Total Bilirubin 1.4H, Aspartate Amino Transf (AST/SGOT) 40H, Alanine Aminotransferase (ALT/SGPT) 25, Alkaline Phosphatase 260H, Total Protein 4.8L, Albumin 2.4L Radiology [facility], [place] NAME: MONICA GIBBS [facility] REC#: [id number] PT STATUS: ADM IN : 1965 PHYSICIAN: KAMI VALVERDE MD ADMIT DATE: 03/30/22 Signed Date of Exam:03/29/22 CT ABDOMEN/PELVIS W PROCEDURE: CT abdomen and pelvis with contrast. TECHNIQUE: Multiple contiguous axial images were obtained through the abdomen and pelvis after administration of intravenous contrast. Auto Exposure Controls were utilized during the CT exam to meet ALARA standards for radiation dose reduction. All CT scans use one or more of the following dose optimizing techniques: automated exposure control, MA and/or KvP adjustment based on patient size and exam type or iterative reconstruction. INDICATION: Lower gastrointestinal bleed. FINDINGS: Cirrhotic changes of the liver again noted. Bile ducts are not dilated. Pancreas is normal. There is splenomegaly with portal hypertension with multiple abdominal varices. The adrenal glands are not enlarged. The kidneys appear normal. Aorta shows atherosclerotic change without aneurysm. Stomach and small bowel are not distended. Colon shows normal stool and gas pattern. Bladder is nondistended. No free air or free fluid. No bony abnormalities. There is noted some hyperdense artifact in the small bowel in the mid abdomen. This does not have the typical appearance of contrast extravasating into the bowel. This is uncertain in etiology. This was not present on the previous exam. IMPRESSION: 1. Cirrhotic changes of the liver with portal hypertension and splenomegaly with abdominal varices. 2. Hyperdense enhancement in the distal small bowel in the lower abdomen of uncertain significance is a new finding. This does not have the typical appearance of extravasated contrast into the bowel. Dictated by: Dictated on workstation # [id number] Dict: 03/30/22 0650 Trans: 03/30/22 0924 [facility] [id number] [facility], [place] NAME: MONICA GIBBS [facility] REC#: [id number] PT STATUS: ADM IN : 1965 PHYSICIAN: KAMI VALVERDE MD ADMIT DATE: 03/30/22 Signed Date of Exam:03/29/22 CT ABDOMEN/PELVIS W PROCEDURE: CT abdomen and pelvis with contrast. TECHNIQUE: Multiple contiguous axial images were obtained through the abdomen and pelvis after administration of intravenous contrast. Auto Exposure Controls were utilized during the CT exam to meet ALARA standards for radiation dose reduction. All CT scans use one or more of the following dose optimizing techniques: automated exposure control, MA and/or KvP adjustment based on patient size and exam type or iterative reconstruction. INDICATION: Lower gastrointestinal bleed. FINDINGS: Cirrhotic changes of the liver again noted. Bile ducts are not dilated. Pancreas is normal. There is splenomegaly with portal hypertension with multiple abdominal varices. The adrenal glands are not enlarged. The kidneys appear normal. Aorta shows atherosclerotic change without aneurysm. Stomach and small bowel are not distended. Colon shows normal stool and gas pattern. Bladder is nondistended. No free air or free fluid. No bony abnormalities. There is noted some hyperdense artifact in the small bowel in the mid abdomen. This does not have the typical appearance of contrast extravasating into the bowel. This is uncertain in etiology. This was not present on the previous exam. IMPRESSION: 1. Cirrhotic changes of the liver with portal hypertension and splenomegaly with abdominal varices. 2. Hyperdense enhancement in the distal small bowel in the lower abdomen of uncertain significance is a new finding. This does not have the typical appearance of extravasated contrast into the bowel. Dictated by: Dictated on workstation # [id number] Dict: 03/30/22649 Trans: 03/30/22923 [facility] [id number] [facility], [place] NAME: MONICA GIBBS Renee [facility] REC#: [id number] PT STATUS: ADM IN : 1965 PHYSICIAN: KAMI VALVERDE MD ADMIT DATE: 03/30/22 Signed Date of Exam:03/29/22 CT ABDOMEN/PELVIS W PROCEDURE: CT abdomen and pelvis with contrast. TECHNIQUE: Multiple contiguous axial images were obtained through the abdomen and pelvis after administration of intravenous contrast. Auto Exposure Controls were utilized during the CT exam to meet ALARA standards for radiation dose reduction. All CT scans use one or more of the following dose optimizing techniques: automated exposure control, MA and/or KvP adjustment based on patient size and exam type or iterative reconstruction. INDICATION: Lower gastrointestinal bleed. FINDINGS: Cirrhotic changes of the liver again noted. Bile ducts are not dilated. Pancreas is normal. There is splenomegaly with portal hypertension with multiple abdominal varices. The adrenal glands are not enlarged. The kidneys appear normal. Aorta shows atherosclerotic change without aneurysm. Stomach and small bowel are not distended. Colon shows normal stool and gas pattern. Bladder is nondistended. No free air or free fluid. No bony abnormalities. There is noted some hyperdense artifact in the small bowel in the mid abdomen. This does not have the typical appearance of contrast extravasating into the bowel. This is uncertain in etiology. This was not present on the previous exam. IMPRESSION: 1. Cirrhotic changes of the liver with portal hypertension and splenomegaly with abdominal varices. 2. Hyperdense enhancement in the distal small bowel in the lower abdomen of uncertain significance is a new finding. This does not have the typical appearance of extravasated contrast into the bowel. Dictated by: Dictated on workstation # [id number] Dict: 03/30/2250 Trans: 03/30/22923 [facility] [id number] [facility], [place] NAME: MONICA GIBBS [facility] REC#: [id number] PT STATUS: ADM IN : 1965 PHYSICIAN: KAMI VALVERDE MD ADMIT DATE: 03/30/22 Signed Date of Exam:03/29/22 CT HEAD WO INDICATION: AMS TECHNIQUE: Routine non contrast-enhanced axial images were obtained from the skull base to the vertex. Auto Exposure Controls were utilized during the CT exam to meet ALARA standards for radiation dose reduction COMPARISON: None. FINDINGS: The ventricles and cortical sulci are age-appropriate. There is no midline shift or mass-effect. No acute intra-axial hemorrhage is seen. There are no abnormal areas of increased or decreased density to suggest acute hemorrhage or edema. No extra-axial masses or collections are present. The bony calvarium is intact. The visualized paranasal sinuses show opacification of the right sphenoid sinus and small amount of debris within the left sinus. The mastoid air cells are clear. IMPRESSION: 1. No acute intracranial abnormality. No CT evidence of mass, acute infarct or intracranial hemorrhage. Dictated by: Dictated on workstation # [id number] Dict: 03/30/22 0710 Trans: 03/30/22 1203 [facility] [id number] Interpreted by: DESTINEY ZUÑIGA MD Electronically signed by: DESTINEY ZUÑIGA MD 03/30/22 1203 Assessment/Plan Assessment/Plan Assessment/Plan Pulmonary Embolism - Left Lung Lower Lobe DVT Cirrhosis Hepatic Encephalopathy - resolved Ulcerative Colitis HTN Anxiety Depression Plan Patient found to have a PE on CTA of chest. Patient was then found to have a DVT on extremity doppler. Patient has trialled anti-coagulation in the outpatient setting and did not tolerate it due to his ulcerative colitis. He would have hematocheiza and melena whenever he was on anti-coagulation. Given the patient's underlying cirrhosis, patient will be prone to have recurrent DVT and Pulmonary Embolisms moving forward. The next best step for the patient is most likely the deployment of an IVC filter, which is a procedure Dr. Chappell does not do. Will discuss with Dr. Barriga and the patient so that we can go about finding a physician who does do the procedure. This way the physician doing the procedure can discuss the risks and benefits with the patient, and determine if the p atient is a good candidate for IVC filter placement. Clinical Quality Measures DVT/VTE Risk/Contraindication: Contraindications-Mechi: Other *list below* Other: dvt MIGUEL CHAPPELL DO 03/30/22 1158: History of Present Illness History of Present Illness Time Seen by Provider: 11:10 History of Present Illness Surgery asked to consult regarding Ulcerative Colitis Flare, PE and DVT. HPI per ED: 57-year-old male with PMH of ulcerative colitis/end-stage liver disease, is here with complaints of diarrhea for the past few days associated with confusion and malaise and lethargy. Patient's reports that she thought he becomes confused intermittently today. Patient has not been drinking or eating much as per . In the ER patient is able to answer all questions and follow commands without any issues. Patient has generalized abdominal pain which appears to be mild to moderate in nature. Denies chest pain, palpitations, fever, nausea and vomiting, dysuria. When I spoke to the pt this am he was in bed, with no complaints. Pain is controlled well with meds. Allergies and Home Medications Allergies Coded Allergies: No Known Drug Allergies (Verified , 02/20/19) Patient Home Medication List Home Medication List Reviewed: Yes Amlodipine Besylate (Amlodipine Besylate) 5 Mg Tablet, 5 MG PO DAILY, (Reported) Entered as Reported by: ARGENTINA LATHAM on 07/02/18 163 Last Action: Reviewed Bisoprolol Fumarate (Bisoprolol Fumarate) 10 Mg Tablet, 10 MG PO DAILY, (Reported) Entered as Reported by: ARGENTINA LATHAM on 07/02/18 163 Last Action: Reviewed Citalopram Hydrobromide (Citalopram HBr) 40 Mg Tablet, 40 MG PO HS, (Reported) Entered as Reported by: ИВАН MCGHEE on 01/23/20 1656 Last Action: Reviewed Ergocalciferol (Vitamin D2) (Vitamin D2) 1,250 Mcg Capsule, 1,250 MCG PO SAT @1200, (Reported) Entered as Reported by: ИВАН MCGHEE on 06/22/20 0911 Last Action: Reviewed Furosemide (Furosemide) 40 Mg Tablet, 40 MG PO DAILY, (Reported) Entered as Reported by: ИВАН MCGHEE on 10/15/21 0944 Last Action: Reviewed Magnesium Oxide (Magnesium Oxide) 400 Mg Tablet, 400 MG PO BID, (Reported) Entered as Reported by: ИВАН MCGHEE on 10/15/21943 Last Action: Reviewed Omeprazole (Omeprazole) 40 Mg Capsule.dr, 40 MG PO DAILY, (Reported) Entered as Reported by: ARGENTINA LATHAM on 07/02/181638 Last Action: Reviewed Oxycodone Hcl (Oxyir Tablet) 5 Mg Tab, 5 MG PO BID PRN for PAIN-SEVERE (8-10), (Reported) Entered as Reported by: ИВАН MCGHEE on 03/30/221118 Last Action: Reviewed Potassium Chloride (Potassium Chloride) 10 Meq Capsule.er, 10 MEQ PO 1200, (Reported) Entered as Reported by: ИВАН MCGHEE on 01/23/201655 Last Action: Reviewed Prednisone (Prednisone) 10 Mg Tab, 20 MG PO DAILY, (Reported) Entered as Reported by: ИВАН MCGHEE on 03/30/221118 Last Action: Reviewed Rifaximin (Xifaxan) 550 Mg Tablet, 550 MG PO BID, (Reported) Entered as Reported by: ARGENTINA LATHAM on 07/02/181638 Last Action: Reviewed Spironolactone (Spironolactone) 50 Mg Tablet, 100 MG PO DAILY, (Reported) Entered as Reported by: ИВАН MCGHEE on 10/15/21943 Last Action: Reviewed Sulfasalazine (Sulfasalazine) 500 Mg Tablet, 3,000 MG PO HS, (Reported) Entered as Reported by: ИВАН MCGHEE on 01/23/201655 Last Action: Reviewed Vitamin A Palmitate (Vitamin A) 10,000 Unit Capsule, 10,000 UNIT PO 1200, (Reported) Entered as Reported by: ИВАН MCGHEE on 03/30/221118 Last Action: Reviewed Discontinued Medications Oxycodone HCl (Oxycodone HCl) 5 Mg Tablet, 5 MG PO Q6H PRN for PAIN-MODERATE (5- 7) Discontinued Reason: No Longer Taking Prescribed by: ROSE LAU on 11/06/21 0740 Last Action: Discontinued Prednisone (Prednisone) 10 Mg Tab.ds.pk, 10 MG PO DAILY Discontinued Reason: No Longer Taking Prescribed by: DIANA BARRIGA on 10/17/21 1106 Last Action: Discontinued Prednisone (Prednisone) 10 Mg Tab.ds.pk, 10 MG PO DAILY Discontinued Reason: No Longer Taking Prescribed by: ROSE LAU on 11/06/21 0740 Last Action: Discontinued Vitamin A (Vitamin A) 2,400 Mcg Capsule, 2,400 MCG PO 1200, (Reported) Discontinued Reason: Prescription changed Entered as Reported by: ИВАН MCGHEE on 03/31/21 1032 Past Bdefaee-Kjstrs-Dkumyq Hx Patient Social History Smoking Status: Former Smoker (quit 6 years ago, smoked 1PPD for decades) Alcohol Use?: No Surgeries History of Surgeries: Yes (colonoscopies, lipoma removal ) Respiratory History of Respiratory Disorde: No Cardiovascular History of Cardiac Disorders: Yes Cardiac Disorders: Deep Vein Thrombosis, High Cholesterol, Hypertension Neurological History of Neurological Disord: Yes (hepatic encephalopathy) Gastrointestinal History of Gastrointestinal Di: Yes Gastrointestinal Disorders: Crohns Disease (UC, not crohns), Esophageal Varices, Cirrhosis Musculoskeletal History of Musculoskeletal Dis: Yes Musculoskeletal Disorders: Degenerate Disk Disease, Arthritis (Degenerative disc disease ) Endocrine History of Endocrine Disorders: No HEENT History of HEENT Disorders: Yes (Presbyopia, Lateral Strabismus of R eye ) Cancer History of Cancer: No Psychosocial History of Psychiatric Problem: Yes Behavioral Health Disorders: Anxiety, Depression Family Medical History Significant Family History: Cancer (pancreatic ), CAD Over 55 Years Old, Diabetes, Hypertension Family Medial History: Cardiovascular disease 19 FATHER Diabetes mellitus 19 FATHER FH: hypertension 19 MOTHER Myocardial infarction 19 FATHER 19 MOTHER G8 BROTHER Review of Systems-General Constitutional: No chills, No diaphoresis, No dizziness, No fever EENTM: No blurred vision, No double vision, No eye pain Respiratory: No cough, No dyspnea on exertion Cardiovascular: No chest pain, No palpitations Gastrointestinal: No abdominal pain, No constipation; diarrhea; No melena Genitourinary: No dysuria, No frequency Musculoskeletal: back pain (chronic), joint pain, muscle stiffness Skin: No change in color, No change in hair/nails Psychiatric/Neurological: Denies Anxiety, Denies Depressed Physical Exam-General Problems Physical Exam General Appearance: no apparent distress, obese Eyes: Bilateral Eye PERRL, Bilateral Eye EOMI HEENT: pharynx normal; No scleral icterus (R), No scleral icterus (L) Neck: non-tender, supple Respiratory: lungs clear, normal breath sounds, no respiratory distress, no accessory muscle use Cardiovascular: regular rate, rhythm, systolic murmur (sounds blowing, does not radiate to carotids ) Gastrointestinal: non tender, soft; No guarding, No tenderness Extremities: no pedal edema, normal capillary refill Neurologic/Psychiatric: alert, oriented x 3 Skin: normal color, warm/dry Lymphatic: no adenopathy (neck, axilla or groin) Assessment/Plan Assessment/Plan Assessment/Plan Pulmonary Embolism - Left Lung Lower Lobe DVT Cirrhosis Hepatic Encephalopathy - resolved Ulcerative Colitis HTN Anxiety Depression Plan Patient found to have a PE on CTA of chest. Patient was then found to have a DVT on extremity doppler. Patient has trialled anti-coagulation in the outpatient setting and did not tolerate it due to his ulcerative colitis. He would have hematocheiza and melena whenever he was on anti-coagulation. Given the patient's underlying cirrhosis, patient will be prone to have recurrent DVT and Pulmonary Embolisms moving forward. The next best step for the patient is most likely the deployment of an IVC filter, which is a procedure that unfortunately I do not do. Will discuss with Dr. Barriga and the patient so that we can go about finding a physician who does do the procedure. This way the physician doing the procedure can discuss the risks and benefits with the patient, and determine if the patient is a good candidate for IVC filter placement. Supervisory-Addendum Brief Verification & Attestation Participated in pt care: history, MDM, physical Personally performed: exam, history, MDM, supervision of care Care discussed with: Medical Student Procedures: n/a Verification and Attestation of Medical Student E/M Service A medical student performed and documented this service. I then reviewed and verified all information documented by the medical student and made modifications to such information, when appropriate. I personally performed a physical exam, medical decision making and then discussed any differences between the notes and made revisions as necessary to create one note. Miguel Chappell , 03/30/22 , 14:41 ANA ONEILL Mar 30, 2022 11:53 MIGUEL CHAPPELL DO Mar 30, 2022 11:58
[2022-03-30] MEDS ORDERED: FLU QUADRIvalent (6 months+) 60 mcg/0.5 ml 2022-23 (Fluzone) IM ONE (14:00)
[2022-03-30] MEDS: ENOXAPARIN 120 MG/0.8 ML (LOVENOX) SQ SCH (15:03)
--- NOTE | 2022-03-30 15:11 | Diagnostic Imaging Report ---
PROCEDURE: US venous lower ext james. TECHNIQUE: Multiple real-time grayscale images were obtained over the lower extremities in various projections, bilaterally. Additional duplex Doppler and color Doppler images were also obtained. INDICATION: Right leg pain and swelling. FINDINGS: Left leg has good color filling and compressibility with phasic flow and normal response to augmentation. In the right leg there is thrombus in the distal superficial femoral vein and popliteal vein. There is some peripheral flow seen within that segment. IMPRESSION: Segmental deep vein thrombosis in the distal right superficial femoral and popliteal veins that is nearly occluding. Dictated by: Dictated on workstation # [id number]
[2022-03-30 15:47] VITALS: BP 112/61
[2022-03-30 19:41] VITALS: BP 121/70
[2022-03-30] MEDS: PANTOPRAZOLE IV SCH (21:59)
[2022-03-30] MEDS: NS IV SCH (21:59)
[2022-03-31 00:23] VITALS: BP 114/58
[2022-03-31] MEDS: ENOXAPARIN 120 MG/0.8 ML (LOVENOX) SQ SCH ×2 (01:09→14:22)
[2022-03-31] MEDS: methylPREDNISolone 40 MG/ML (Solu-MEDROL) VIAL IV SCH ×4 (03:50→21:42)
[2022-03-31 04:38] VITALS: BP 119/65
[2022-03-31] MEDS: cefTRIAXone 1 GM IV (PRE-MIX) 50 ML IV SCH (05:39)
[2022-03-31 05:42] LABS: BASOPHILS % (AUTO) 0 % (0-10); EOSINOPHILS % (AUTO) 0 % (0-10); HEMATOCRIT 26 % (40-54); HEMOGLOBIN 8.6 g/dL (13.3-17.7); LYMPHOCYTES # (AUTO) 0.5 10^3/uL (1.0-4.0); LYMPHOCYTES % (AUTO) 5 % (12-44); MEAN CORPUSCULAR HEMOGLOBIN 26 pg (25-34); MEAN CORPUSCULAR HGB CONC 33 g/dL (32-36); MEAN CORPUSCULAR VOLUME 78 fL (80-99); MONOCYTES # (AUTO) 0.6 10^3/uL (0.0-1.0); MONOCYTES % (AUTO) 5 % (0-12); NEUTROPHILS # (AUTO) 9.3 10^3/uL (1.8-7.8); NEUTROPHILS % (AUTO) 89 % (42-75); PLATELET COUNT 145 10^3/uL (130-400); WHITE BLOOD COUNT 10.4 10^3/uL (4.3-11.0)
[2022-03-31 05:55] LABS: ALBUMIN 2.2 GM/DL (3.2-4.5); POTASSIUM 3.4 MMOL/L (3.6-5.0)
[2022-03-31 05:56] LABS: CALCIUM 7.7 MG/DL (8.5-10.1)
[2022-03-31 05:58] LABS: TOTAL PROTEIN 4.6 GM/DL (6.4-8.2)
[2022-03-31 05:59] LABS: BILIRUBIN,TOTAL 1.2 MG/DL (0.1-1.0)
[2022-03-31 06:01] LABS: CREATININE SERUM 0.7 MG/DL (0.60-1.30)
[2022-03-31] MEDS ORDERED: PANTOPRAZOLE 40 MG (PROTONIX) TAB PO SCH (07:00)
[2022-03-31 07:29] VITALS: BP 114/66
--- NOTE | 2022-03-31 08:25 | Progress Note - Surgery ---
CRISTHIANCHRIS Kenyon 03/31/22 0825: Subjective Date Seen by a Provider: Mar 31, 2022 Time Seen by a Provider: 08:20 Subjective/Events-last exam Pt is sitting comfortably in bed. Pt states that he feels good and has been tolerating clears well. Pt states that he had diarrhea but did not see gross blood. Pt had a positive hemoccult today. Pt notes improvement of leg swelling and has been walking without issue. Pt denies CP, SOB, abd pain, nausea, vomiting, ALATORRE, and lightheadness. Review of Systems General: No Night Sweats, No Fatigue, No Appetite HEENT: No Head Aches, No Visual Changes Pulmonary: No Dyspnea, No Cough Cardiovascular: No: Chest Pain, Lt Headedness Gastrointestinal: Diarrhea; No: Nausea, Vomiting, Abdominal Pain Genitourinary: No Dysuria, No Hematuria Musculoskeletal: No: neck pain, shoulder pain Neurological: No: Weakness, Numbness Focused Exam Lactate Level 03/29/22 22:03: Lactic Acid Level 1.72 Objective Exam Vital Signs Date Time Temp Pulse Resp B/P (MAP) Pulse Ox O2 Delivery O2 Flow Rate FiO2 03/31/22 07:29 36.7 82 20 114/66 (82) 98 Room Air 03/31/22 07:00 82 03/31/22 04:38 36.8 83 18 119/65 (83) 98 NIV CPAP 03/31/22 01:00 83 03/31/22 00:23 37.1 73 20 114/58 (76) 97 Room Air 03/30/22 20:00 Room Air 03/30/22 19:41 36.6 86 20 121/70 (87) 99 Room Air 03/30/22 19:12 Room Air 03/30/22 19:00 83 03/30/22 15:47 36.7 81 20 112/61 (78) 98 Room Air 03/30/22 13:00 78 03/30/22 11:26 36.8 79 18 112/62 (79) 98 Room Air 03/30/22 09:12 36.4 69 18 115/55 (75) 99 Room Air 03/30/22 09:04 77 03/30/22 08:53 91 Room Air 03/30/22 08:40 36.7 79 99 21 I & O 03/31/22 07:00 Intake Total 2240 ml Balance 2240 ml Capillary Refill : Less Than 3 Seconds General Appearance: No Apparent Distress, Chronically ill, Obese HEENT: PERRL/EOMI, Normal ENT Inspection Neck: Full Range of Motion Respiratory: Lungs Clear, Normal Breath Sounds, No Accessory Muscle Use, No Respiratory Distress Cardiovascular: Regular Rate, Rhythm, No Edema Gastrointestinal: non tender, soft; No guarding, No tenderness Extremity: No Calf Tenderness; No No Pedal Edema Neurologic/Psychiatric: Alert, Oriented x3 (Patient able to answer all questions and follow all commands in the ER), Normal Mood/Affect Skin: Normal Color, Warm/Dry Lymphatic: No Adenopathy Results Lab Laboratory Tests 03/30/22 10:50: White Blood Count 5.7, Red Blood Count 3.84L, Hemoglobin 9.8L, Hematocrit 30L, Mean Corpuscular Volume 78L, Mean Corpuscular Hemoglobin 26, Mean Corpuscular Hemoglobin Concent 33, Red Cell Distribution Width 16.9H, Platelet Count 142, Mean Platelet Volume 10.6, Immature Granulocyte % (Auto) 1, Neutrophils (%) (Auto) 89H, Lymphocytes (%) (Auto) 5L, Monocytes (%) (Auto) 5, Eosinophils (%) (Auto) 0, Basophils (%) (Auto) 0, Neutrophils # (Auto) 5.1, Lymphocytes # (Auto) 0.3L, Monocytes # (Auto) 0.3, Eosinophils # (Auto) 0.0, Basophils # (Auto) 0.0, Immature Granulocyte # (Auto) 0.0, Sodium Level 135, Potassium Level 3.2L, Chloride Level 108H, Carbon Dioxide Level 17L, Anion Gap 10, Blood Urea Nitrogen 10, Creatinine 0.68, Estimat Glomerular Filtration Rate 109, BUN/Creatinine Ratio 15, Glucose Level 217H, Calcium Level 7.7L, Corrected Calcium 9.0, Total Bilirubin 1.4H, Aspartate Amino Transf (AST/SGOT) 40H, Alanine Aminotransferase (ALT/SGPT) 25, Alkaline Phosphatase 260H, Total Protein 4.8L, Albumin 2.4L, Procalcitonin 0.27H 03/31/22 00:30: Stool Occult Blood Immunoassay POSITIVEH 03/31/22 05:15: White Blood Count 10.4, Red Blood Count 3.35L, Hemoglobin 8.6L, Hematocrit 26L, Mean Corpuscular Volume 78L, Mean Corpuscular Hemoglobin 26, Mean Corpuscular Hemoglobin Concent 33, Red Cell Distribution Width 16.8H, Platelet Count 145, Mean Platelet Volume 11.0, Immature Granulocyte % (Auto) 1, Neutrophils (%) (Auto) 89H, Lymphocytes (%) (Auto) 5L, Monocytes (%) (Auto) 5, Eosinophils (%) (Auto) 0, Basophils (%) (Auto) 0, Neutrophils # (Auto) 9.3H, Lymphocytes # (Auto) 0.5L, Monocytes # (Auto) 0.6, Eosinophils # (Auto) 0.0, Basophils # (Auto) 0.0, Immature Granulocyte # (Auto) 0.1, Sodium Level 134L, Potassium Level 3.4L, Chloride Level 110H, Carbon Dioxide Level 15L, Anion Gap 9, Blood Urea Nitrogen 13, Creatinine 0.70, Estimat Glomerular Filtration Rate 108, BUN/Creatinine Ratio 19, Glucose Level 139H, Calcium Level 7.7L, Corrected Calcium 9.1, Total Bilirubin 1.2H, Aspartate Amino Transf (AST/SGOT) 34, Alanine Aminotransferase (ALT/SGPT) 22, Alkaline Phosphatase 224H, Total Protein 4.6L, Albumin 2.2L, Magnesium Level 1.7 Assessment/Plan Assessment/Plan Assessment/Plan Pulmonary Embolism - Left Lung Lower Lobe DVT Cirrhosis Hepatic Encephalopathy - resolved Ulcerative Colitis HTN Anxiety Depression Plan Patient found to have a PE on CTA of chest. Patient was then found to have a DVT on extremity doppler. Patient has trialled anti-coagulation in the outpatient setting and did not tolerate it due to his ulcerative colitis. He would have hematocheiza and melena whenever he was on anti-coagulation. Given the patient's underlying cirrhosis, patient will be prone to have recurrent DVT and Pulmonary Embolisms moving forward. The next best step for the patient is most likely the deployment of an IVC filter, which is a procedure that unfortunately I do not do. Will discuss with Dr. Casas and the patient so that we can go about finding a physician who does do the procedure. This way the physician doing the procedure can discuss the risks and benefits with the patient, and determine if the patient is a good candidate for IVC filter placement. 03/31: Pt has spoken to Dr. Chappell about ICV surgery and stated that they inquired about Dr. Silveira performing the surgery. Clinical Quality Measures DVT/VTE Risk/Contraindication: Contraindications-Mechi: Other *list below* Other: dvt PERLAMIGUEL ZELAYA DO 03/31/22 1143: Subjective Time Seen by a Provider: 10:06 Subjective/Events-last exam Pt seen and examined, states he is feeling better today. He is not really having any abdominal pain and breathing is ok. Review of Systems General: No Night Sweats, No Fatigue Pulmonary: No Dyspnea, No Cough Cardiovascular: No: Chest Pain Gastrointestinal: Diarrhea, Other (hemoccult +); No: Nausea, Vomiting, Abdominal Pain Genitourinary: No Dysuria, No Hematuria Objective Exam General Appearance: No Apparent Distress, Chronically ill, Obese HEENT: PERRL/EOMI Respiratory: Lungs Clear, Normal Breath Sounds, No Accessory Muscle Use, No Respiratory Distress Cardiovascular: Regular Rate, Rhythm, No Edema Gastrointestinal: non tender, soft; No guarding, No tenderness Extremity: No Calf Tenderness, Pedal Edema Assessment/Plan Assessment/Plan Assessment/Plan Pulmonary Embolism - Left Lung Lower Lobe DVT Cirrhosis Hepatic Encephalopathy - resolved Ulcerative Colitis - with flare and bleeding HTN Anxiety Depression Plan Patient found to have a PE on CTA of chest. Patient was then found to have a DVT on extremity doppler. Patient has trialled anti-coagulation in the outpatient setting and did not tolerate it due to his ulcerative colitis. He would have hematocheiza and melena whenever he was on anti-coagulation. Given the patient's underlying cirrhosis, patient will be prone to have recurrent DVT and Pulmonary Embolisms moving forward. The next best step for the patient is most likely the deployment of an IVC filter; unfortunately I do not do IVC placement at this time. I spoke with Dr. Casas and the patient.....will ask Dr. Silveira if he can do this. Supervisory-Addendum Brief Verification & Attestation Participated in pt care: history, MDM, physical Personally performed: exam, history, MDM, supervision of care Care discussed with: Medical Student Procedures: n/a Verification and Attestation of Medical Student E/M Service A medical student performed and documented this service. I then reviewed and verified all information documented by the medical student and made modifications to such information, when appropriate. I personally performed a physical exam, medical decision making and then discussed any differences between the notes and made revisions as necessary to create one note. Miguel Chappell , 03/31/22 , 11:43 CHRIS DUKE Mar 31, 2022 08:25 MIGUEL CHAPPELL DO Mar 31, 2022 11:43
[2022-03-31] MEDS: FUROSEMIDE 40 MG (LASIX) TAB PO SCH (08:26)
[2022-03-31] MEDS: RIFAXIMIN 550 MG TABLET (XIFAXAN) PO SCH ×2 (08:26→20:00)
[2022-03-31] MEDS: KCL 20 MEQ TAB (K-DUR) PO SCH ×3 (08:27→17:47)
[2022-03-31] MEDS: amLODIPine 5 MG (NORVASC) TAB PO SCH (08:27)
[2022-03-31] MEDS: SPIRONOLACTONE 100 MG (ALDACTONE) TABLET PO SCH (08:27)
[2022-03-31] MEDS: MAGNESIUM OXIDE (MAG-OX)400 MG TAB PO SCH ×2 (08:27→20:00)
[2022-03-31] MEDS: BISOPROLOL 5 MG TAB (ZEBETA) PO SCH (08:27)
[2022-03-31] MEDS: PANTOPRAZOLE 40 MG (PROTONIX) TAB PO SCH (08:27)
[2022-03-31] MEDS: SENNOSIDES 8.6 MG (SENOKOT) TAB PO SCH ×2 (09:31→20:01)
[2022-03-31] MEDS: DOCUSATE SODIUM 100 MG (COLACE) CAP PO SCH ×2 (09:31→20:01)
[2022-03-31] MEDS ORDERED: KCL 10 MEQ TAB (MICRO K) PO SCH (12:00)
[2022-03-31] MEDS ORDERED: VITAMIN A PALMITATE 10000 UNIT PO SCH (12:00)
[2022-03-31 12:03] VITALS: BP 117/61
--- NOTE | 2022-03-31 14:45 | Progress Note ---
[facility] 03/31/22 1445: Subjective Date Seen by a Provider: Mar 31, 2022 Time Seen by a Provider: 11:00 Subjective/Events-last exam Today he reports feeling better than yesterday and does not have any pain or new complaints. Pt does have questions regarding the IVC filter procedure. He had a loose BM with no visible blood today. Stool occult was positive. WBC increased to 10.4 from 5.7 likely 2/2 medications. Review of Systems General: No Chills, No Night Sweats HEENT: No Head Aches, No Visual Changes Pulmonary: No Dyspnea, No Cough Cardiovascular: No: Chest Pain, Palpitations Gastrointestinal: No: Nausea, Vomiting Genitourinary: No Dysuria, No Frequency Musculoskeletal: No: neck pain, shoulder pain Neurological: No: Weakness, Numbness Focused Exam Lactate Level 03/29/22 22:03: Lactic Acid Level 1.72 Objective Exam Last Set of Vital Signs Vital Signs Date Time Temp Pulse Resp B/P (MAP) Pulse Ox O2 Delivery O2 Flow Rate FiO2 03/31/22 13:00 77 03/31/22 12:03 36.9 20 117/61 (79) 97 Room Air 03/30/22 08:40 21 Capillary Refill : Less Than 3 Seconds I&O Intake and Output 03/31/22 00:00 Intake Total 1540 ml Balance 1540 ml Intake Oral 1540 ml # Voids 3 Daily Weight Change No General: Alert, Oriented X3 HEENT: Atraumatic, PERRLA, EOMI, Mucous Memb Moist/[place] Neck: Supple, No JVD Lungs: Clear to Auscultation, Normal Air Movement Heart: Regular Rate, Normal S1, Normal S2 Abdomen: Normal Bowel Sounds, Soft, No Tenderness Extremities: No Clubbing, No Cyanosis, Normal Pulses Skin: No Rashes, No Significant Lesion Neuro: Normal Speech, Sensation Intact Psych/Mental Status: Mental Status NL, Mood NL Results Lab Laboratory Tests 03/31/22 00:30: Stool Occult Blood Immunoassay POSITIVEH 03/31/22 05:15: White Blood Count 10.4, Red Blood Count 3.35L, Hemoglobin 8.6L, Hematocrit 26L, Mean Corpuscular Volume 78L, Mean Corpuscular Hemoglobin 26, Mean Corpuscular Hemoglobin Concent 33, Red Cell Distribution Width 16.8H, Platelet Count 145, Mean Platelet Volume 11.0, Immature Granulocyte % (Auto) 1, Neutrophils (%) (Auto) 89H, Lymphocytes (%) (Auto) 5L, Monocytes (%) (Auto) 5, Eosinophils (%) (Auto) 0, Basophils (%) (Auto) 0, Neutrophils # (Auto) 9.3H, Lymphocytes # (Auto) 0.5L, Monocytes # (Auto) 0.6, Eosinophils # (Auto) 0.0, Basophils # (Auto) 0.0, Immature Granulocyte # (Auto) 0.1, Sodium Level 134L, Potassium Level 3.4L, Chloride Level 110H, Carbon Dioxide Level 15L, Anion Gap 9, Blood Urea Nitrogen 13, Creatinine 0.70, Estimat Glomerular Filtration Rate 108, BUN/Creatinine Ratio 19, Glucose Level 139H, Calcium Level 7.7L, Corrected Calcium 9.1, Magnesium Level 1.7, Total Bilirubin 1.2H, Aspartate Amino Transf (AST/SGOT) 34, Alanine Aminotransferase (ALT/SGPT) 22, Alkaline Phosphatase 224H , Total Protein 4.6L, Albumin 2.2L Microbiology 03/31/22 C. difficile GDH Antigen & Toxins - Final, Resulted 03/31/22 Stool Culture, Resulted Pending Assessment/Plan Assessment/Plan Assess & Plan/Chief Complaint Hepatic encephalopathy Flare of colitits Acute PE Right LE DVT Cirrhosis HTN COPD Continue home meds and monitor closely For the PE and recurrent DVTs, he would need 3 months of eliquis anticoagulation. Due to his history of encephalopathy with frequent colitis flares he has been unable to tolerate anticoagulation in the past. Pt would be nefit from IVC filter and Dr. Silveira has been consulted. Consider advancing diet pending Dr. Silveira scheduling filter procedure Discussed plan to discharge after filter placement, pt agrees Clinical Quality Measures DVT/VTE Risk/Contraindication: Contraindications-Mechi: Other *list below* Other: dvt IVONNE BARRIGA DO 04/01/22 0451: Subjective Subjective/Events-last exam Reviewed plan for filter with patient Assessment/Plan Assessment/Plan Assess & Plan/Chief Complaint Filter placement Supervisory-Addendum Brief Verification & Attestation Participated in pt care: history, MDM, physical Personally performed: exam, history, MDM, supervision of care Care discussed with: Medical Student Procedures: n/a Results interpretation: Verified all documentation Verification and Attestation of Medical Student E/M Service A medical student performed and documented this service in my presence. I reviewed and verified all information documented by the medical student and made modifications to such information, when appropriate. I personally performed the physical exam and medical decision making. Ivonne Barriga, Apr 01, 2022,04:51 NARGIS YIN Mar 31, 2022 14:45 IVONNE BARRIGA DO Apr 01, 2022 04:51
[2022-03-31 16:08] VITALS: BP 126/56
--- NOTE | 2022-03-31 18:20 | Progress Note-Pre Operative ---
Pre-Operative Progress Note Date of Available H&P: Mar 31, 2022 Date H&P Reviewed: Mar 31, 2022 Time H&P Reviewed: 18:00 History & Physical: No changes noted Pre-Operative Diagnosis: hx multiple DVT, PE and contraindication anticoagulation KARY INGRAM MD Mar 31, 2022 18:20
[2022-03-31 19:15] VITALS: BP 122/63
--- NOTE | 2022-03-31 19:16 | CONSULTATION REPORT ---
DATE OF SERVICE: 03/31/2022 ATTENDING PRIMARY CARE PHYSICIAN: Dr. Ivonne Casas. HISTORY OF PRESENT ILLNESS: The patient is a 57-year-old male with a history of liver cirrhosis as well as ulcerative colitis. He has been seeing Hepatology at [facility]. Due to his liver cirrhosis, he does get occasional episodes of hepatic encephalopathy and confusion. This is what happened and he was found to have an elevated D-dimer. Upon further questioning, the patient had reported that he has been having red blood per rectum for the past month. He was on anticoagulation with Eliquis. Further workup revealed that he developed a left lower extremity deep vein thrombosis of the distal superficial femoral artery extending into the popliteal vein. A CTA was also performed, which did show an isolated small pulmonary embolus of a single segmental branch of the left lower lobe. The patient unfortunately has a contraindication to anticoagulation due to his ulcerative colitis and bleeding; however, recently did have a deep vein thrombosis of the left lower extremity and pulmonary embolism. He also has a history of a right deep vein thrombosis approximately 2 years ago. Due to these findings, he has a contraindication to anticoagulation; however, will need an inferior vena caval filter to prevent potential catastrophic pulmonary embolism. PAST MEDICAL HISTORY: Liver cirrhosis, ulcerative colitis, COPD, sleep apnea, history of DVT of right lower extremity in 2019, hypertension, hypercholesterolemia, degenerative joint disease, insulin-dependent diabetes, anxiety, psoriasis, history of esophageal varices. PAST SURGICAL HISTORY: Right ulnar nerve transposition. ALLERGIES: NO KNOWN DRUG ALLERGIES. MEDICATIONS: Amlodipine 5 mg daily, bisoprolol 10 mg daily, citalopram 40 mg daily, furosemide 40 mg daily, magnesium 400 mg b.i.d., omeprazole 40 mg daily, oxycodone 5 mg b.i.d. p.r.n., potassium 10 mEq daily, prednisone 20 mg daily, rifaximin 550 mg daily, spironolactone 50 mg daily, sulfasalazine 3000 mg daily. SOCIAL HISTORY: Previous smoker, quit 6 years ago, 50 pack years. Negative alcohol. FAMILY HISTORY: Father and mother, myocardial infarction. VITAL SIGNS: Temperature 36.9, blood pressure 126/56, pulse 71, respirations 19, pulse ox 99% on room air. REVIEW OF SYSTEMS: Well-nourished male, currently in no acute distress. He is not experiencing any shortness of breath or difficulty breathing. No chest pain, palpitations, diaphoresis. No nausea, vomiting with intermittent episodes of loose stools as well as red blood per rectum for the past month. No fever or chills. No recent inadvertent weight loss. All other review of systems negative. PHYSICAL EXAMINATION: CHEST: Clear. Good breath sounds bilaterally. HEART: Regular, no murmurs. EXTREMITIES: No lower extremity edema. Negative Homans sign. HEENT: No scleral icterus. No cervical lymphadenopathy. ABDOMEN: Soft, nontender, nondistended. SKIN: Warm, dry. LABORATORY DATA: WBC 10.4, hemoglobin 8.6, hematocrit 26, platelets 145. BUN 13, creatinine 0.70. ASSESSMENT AND PLAN: A 57-year-old male with a history of liver cirrhosis as well as ulcerative colitis and contraindication to anticoagulation due to bleeding complications. He, however, has had history of thromboembolic disease including a right lower extremity DVT in 2019 and recently, the development of a left lower extremity DVT and pulmonary embolism. Due to his contraindication to anticoagulation, recommendation would be to proceed with placement of an inferior vena caval filter to prevent the occurrence of catastrophic pulmonary embolism, which we will plan on doing on this admission. Job ID: [id number] DocumentID: [id number] Dictated Date: 03/31/2022 18:19:05 Heading Machine Operator Date: 03/31/2022 19:14:00 Dictated By: KARY INGRAM MD
[2022-03-31] MEDS ORDERED: sulfaSALAzine 500 MG (AZULFIDINE) TAB PO SCH (21:00)
[2022-04-01] VITALS (11 sets, daily range): BP systolic 112–145; BP diastolic 66–76
[2022-04-01] MEDS: ENOXAPARIN 120 MG/0.8 ML (LOVENOX) SQ SCH ×2 (01:43→15:13)
[2022-04-01] MEDS: methylPREDNISolone 40 MG/ML (Solu-MEDROL) VIAL IV SCH ×3 (03:47→17:28)
[2022-04-01 05:51] LABS: BASOPHILS % (AUTO) 0 % (0-10); EOSINOPHILS % (AUTO) 0 % (0-10); HEMATOCRIT 33 % (40-54); HEMOGLOBIN 10.7 g/dL (13.3-17.7); LYMPHOCYTES # (AUTO) 0.7 10^3/uL (1.0-4.0); LYMPHOCYTES % (AUTO) 4 % (12-44); MEAN CORPUSCULAR HEMOGLOBIN 25 pg (25-34); MEAN CORPUSCULAR HGB CONC 32 g/dL (32-36); MEAN CORPUSCULAR VOLUME 79 fL (80-99); MEAN PLATELET VOLUME 10.6 fL (9.0-12.2); MONOCYTES # (AUTO) 0.8 10^3/uL (0.0-1.0); MONOCYTES % (AUTO) 5 % (0-12); NEUTROPHILS # (AUTO) 15.1 10^3/uL (1.8-7.8); NEUTROPHILS % (AUTO) 90 % (42-75); PLATELET COUNT 231 10^3/uL (130-400); WHITE BLOOD COUNT 16.8 10^3/uL (4.3-11.0)
[2022-04-01] MEDS: cefTRIAXone 1 GM IV (PRE-MIX) 50 ML IV SCH (06:01)
[2022-04-01] MEDS: PANTOPRAZOLE 40 MG (PROTONIX) TAB PO SCH (06:02)
[2022-04-01 06:10] LABS: ALBUMIN 2.8 GM/DL (3.2-4.5)
[2022-04-01 06:12] LABS: CALCIUM 8.3 MG/DL (8.5-10.1)
[2022-04-01 06:13] LABS: TOTAL PROTEIN 5.6 GM/DL (6.4-8.2)
[2022-04-01 06:15] LABS: BILIRUBIN,TOTAL 1.2 MG/DL (0.1-1.0)
[2022-04-01 06:17] LABS: CREATININE SERUM 0.74 MG/DL (0.60-1.30)
[2022-04-01] MEDS: KCL 20 MEQ TAB (K-DUR) PO SCH ×3 (08:00→17:28)
[2022-04-01] MEDS: SENNOSIDES 8.6 MG (SENOKOT) TAB PO SCH (08:10)
[2022-04-01] MEDS: DOCUSATE SODIUM 100 MG (COLACE) CAP PO SCH (08:10)
--- NOTE | 2022-04-01 08:22 | Progress Note - Surgery ---
CHRIS DUKE 04/01/22 0822: Subjective Date Seen by a Provider: Apr 01, 2022 Time Seen by a Provider: 08:17 Subjective/Events-last exam Pt is resting in bed comfortably. Family is bedside. Pt has no complaints and states that he is feeling good this morning. Pt states that he has been ambulat ing without issue. Pt has not had a BM today but notes that he an diarrhea yesterday but denies dark stool or blood present. Pt is scheduled for IVC filter placement with Dr. Silveira today. Pt denies CP, SOB, leg swelling, abd pain, nausea, vomiting, ALATORRE, and lightheadedness. Review of Systems General: No Chills, No Appetite HEENT: No Head Aches, No Visual Changes Pulmonary: No Dyspnea, No Cough Cardiovascular: No: Chest Pain, Lt Headedness Gastrointestinal: Diarrhea; No: Nausea, Vomiting, Abdominal Pain, Melena, Alfonso tochezia Genitourinary: No Dysuria, No Hematuria Musculoskeletal: No: neck pain, shoulder pain Neurological: No: Weakness, Numbness Focused Exam Lactate Level 03/29/22 22:03: Lactic Acid Level 1.72 Objective Exam Vital Signs Date Time Temp Pulse Resp B/P (MAP) Pulse Ox O2 Delivery O2 Flow Rate FiO2 04/01/22 07:49 96 Room Air 04/01/22 07:40 37.4 83 18 113/66 (82) 96 Room Air 04/01/22 07:00 86 04/01/22 04:38 37.0 81 20 137/71 (93) 96 Room Air 04/01/22 01:00 80 04/01/22 00:07 37.0 84 20 118/69 (85) 97 Room Air 03/31/22 20:00 Room Air 03/31/22 19:15 36.7 82 17 122/63 (82) 99 Room Air 03/31/22 19:00 82 03/31/22 16:08 36.9 71 19 126/56 (79) 99 Room Air 03/31/22 13:00 77 03/31/22 12:03 36.9 80 20 117/61 (79) 97 Room Air I & O 04/01/22 07:00 Intake Total 2020 ml Output Total 1450 ml Balance 570 ml Capillary Refill : Less Than 3 Seconds General Appearance: No Apparent Distress, Chronically ill, Obese HEENT: PERRL/EOMI, Moist Mucous Membranes Neck: Normal Inspection, Non Tender Respiratory: Lungs Clear, Normal Breath Sounds, No Accessory Muscle Use, No Respiratory Distress Cardiovascular: Regular Rate, Rhythm, No Murmur, Normal Peripheral Pulses Gastrointestinal: non tender, soft; No guarding, No tenderness Extremity: Normal Inspection, No Calf Tenderness; No Pedal Edema Neurologic/Psychiatric: Alert, Oriented x3, Normal Mood/Affect Skin: Normal Color, Warm/Dry Lymphatic: No Adenopathy Results Lab Laboratory Tests 04/01/22 05:35: White Blood Count 16.8H, Red Blood Count 4.23L, Hemoglobin 10.7#L, Hematocrit 33L, Mean Corpuscular Volume 79L, Mean Corpuscular Hemoglobin 25, Mean Corpuscular Hemoglobin Concent 32, Red Cell Distribution Width 17.2H, Platelet Count 231, Mean Platelet Volume 10.6, Immature Granulocyte % (Auto) 1, Neutrophils (%) (Auto) 90H, Lymphocytes (%) (Auto) 4L, Monocytes (%) (Auto) 5, Eosinophils (%) (Auto) 0, Basophils (%) (Auto) 0, Neutrophils # (Auto) 15.1H, Lymphocytes # (Auto) 0.7L, Monocytes # (Auto) 0.8, Eosinophils # (Auto) 0.0, Basophils # (Auto) 0.0, Immature Granulocyte # (Auto) 0.2H, Sodium Level 137, Potassium Level 4.0, Chloride Level 111H, Carbon Dioxide Level 17L, Anion Gap 9, Blood Urea Nitrogen 14, Creatinine 0.74, Estimat Glomerular Filtration Rate 106, BUN/Creatinine Ratio 19, Glucose Level 123H, Calcium Level 8.3L, Corrected Calcium 9.3, Total Bilirubin 1.2H, Aspartate Amino Transf (AST/SGOT) 41H, Alanine Aminotransferase (ALT/SGPT) 25, Alkaline Phosphatase 272H, Total Protein 5.6L, Albumin 2.8L Microbiology 03/31/22 C. difficile GDH Antigen & Toxins - Final, Resulted 03/31/22 Stool Culture, Resulted Pending Assessment/Plan Assessment/Plan Assessment/Plan Pulmonary Embolism - Left Lung Lower Lobe B/L DVT Cirrhosis Hepatic Encephalopathy - resolved Ulcerative Colitis HTN Anxiety Depression Leukocytosis Pt is scheduled for IVC filter placement with Dr. Silveira today Clinical Quality Measures DVT/VTE Risk/Contraindication: Contraindications-Mechi: Other *list below* Other: dvt PERLAKRISSY ZELAYAMATTHIAS Bunch DO 04/01/22 0944: Subjective Time Seen by a Provider: 09:20 Subjective/Events-last exam Pt seen and examined, no new complaints he is ready for IVC filter placement. He denied abdomina pain and hematochezia. He did ask if they were placing filter through neck or groin, unfortunately I don't know the answer to that. Review of Systems General: No Chills HEENT: No Head Aches, No Visual Changes Pulmonary: No Dyspnea, No Cough Cardiovascular: No: Chest Pain Gastrointestinal: No: Nausea, Vomiting, Abdominal Pain Objective Exam General Appearance: No Apparent Distress, Chronically ill, Obese HEENT: PERRL/EOMI, Moist Mucous Membranes Respiratory: Lungs Clear, Normal Breath Sounds, No Accessory Muscle Use, No Respiratory Distress Cardiovascular: Regular Rate, Rhythm, No Murmur Gastrointestinal: non tender, soft, no organomegaly; No guarding Extremity: No Calf Tenderness, No Pedal Edema Neurologic/Psychiatric: Alert, Oriented x3 Assessment/Plan Assessment/Plan Assessment/Plan Pulmonary Embolism - Left Lung Lower Lobe B/L DVT Cirrhosis Hepatic Encephalopathy - resolved Ulcerative Colitis HTN Anxiety Depression Leukocytosis Pt is scheduled for IVC filter placement with Dr. Silveira today Will sign off, pt can see Dr. Zepeda monday or continue with Dr. Silveira who will be following him over the weekend. Supervisory-Addendum Brief Verification & Attestation Participated in pt care: history, MDM, physical Personally performed: exam, history, MDM, supervision of care Care discussed with: Medical Student Procedures: n/a Verification and Attestation of Medical Student E/M Service A medical student performed and documented this service. I then reviewed and verified all information documented by the medical student and made modifications to such information, when appropriate. I personally performed a physical exam, medical decision making and then discussed any differences between the notes and made revisions as necessary to create one note. Miguel Chappell , 04/01/22 , 09:44 CHRIS DUKE Apr 01, 2022 08:22 MIGUEL CHAPPELL DO Apr 01, 2022 09:44
[2022-04-01] MEDS: RIFAXIMIN 550 MG TABLET (XIFAXAN) PO SCH (09:00)
[2022-04-01] MEDS: MAGNESIUM OXIDE (MAG-OX)400 MG TAB PO SCH (09:00)
[2022-04-01] MEDS ORDERED: BUP/EPI 0.25% 1:200,000 (MARCAINE) 30 ML VIAL ONE (11:51)
[2022-04-01] MEDS ORDERED: HEParin (CENTRAL IV FLUSH) 500 UNIT/5 ML SYR ONE ×2 (11:51→12:37)
[2022-04-01] MEDS ORDERED: APIX5TAB PO ×2 (12:08→17:46)
--- NOTE | 2022-04-01 12:15 | Progress Note ---
HUMPHREYNARGIS 04/01/22 1215: Subjective Date Seen by a Provider: Apr 01, 2022 Time Seen by a Provider: 11:10 Subjective/Events-last exam Librado is a 57 yo male with PMH of ulcerative colitis and cirrhosis with history of hepatic encephalopathy. He sees hepatology at . Pt presented to ER on 05/29/21 with complaints of confusion, bloody diarrhea, and fatigue for the previous week. D-dimer was elevated at 9.41. CT revealed pulmonary embolism and colitis. Pt was admitted to Dr. Casas's service and started on Lovenox and Solu-Medrol. Procalcitonin was elevated at 0.34 so surgery was consulted. He has a history of being on Eliquis and having hematochezia from the colitis making it convert over to hepatic encephalopathy so we discussed need for IVC filter. Pt continued to have loose BM without visible blood. Stool occult was postitive on 03/31. He is scheduled to have the filter placed today with Dr. Silveira. Today pt has no new complaints, he is hungry and thirsty as he has been NPO. He had a loose BM this am that was without blood. His family is at his bedside today. He notes that he is hoping to go home today after the filter procedure or tomorrow depending on how he is feeling. Review of Systems General: No Chills, No Night Sweats; Appetite HEENT: No Head Aches, No Sore Throat Pulmonary: No Dyspnea, No Cough Cardiovascular: No: Chest Pain, Palpitations Gastrointestinal: No: Abdominal Pain, Melena, Hematochezia Genitourinary: No Dysuria, No Frequency Musculoskeletal: No: neck pain, shoulder pain Neurological: No: Weakness, Numbness Focused Exam Lactate Level 03/29/22 22:03: Lactic Acid Level 1.72 Objective Exam Last Set of Vital Signs Vital Signs Date Time Temp Pulse Resp B/P (MAP) Pulse Ox O2 Delivery O2 Flow Rate FiO2 04/01/22 11:44 37.3 80 18 129/66 (87) 96 Room Air 03/30/22 08:40 21 Capillary Refill : Less Than 3 Seconds I&O Intake and Output 04/01/22 00:00 Intake Total 2420 ml Output Total 1100 ml Balance 1320 ml Intake Oral 1820 ml IV Total 600 ml Output Urine Total 1100 ml # Voids 1 # Bowel Movements 3 General: Alert, Oriented X3, Cooperative, No Acute Distress HEENT: Atraumatic, PERRLA, EOMI, Mucous Memb Moist/[place] Neck: Supple, No JVD, No LAD Lungs: Clear to Auscultation, Normal Air Movement Heart: Regular Rate, Normal S1, Normal S2, No Murmurs Abdomen: Normal Bowel Sounds, Soft, No Tenderness Extremities: No Clubbing, No Cyanosis, No Edema, Normal Pulses Skin: No Rashes, No Breakdown, No Significant Lesion Neuro: Normal Gait, Normal Speech Psych/Mental Status: Mental Status NL, Mood NL Results Lab Laboratory Tests 04/01/22 05:35: White Blood Count 16.8H, Red Blood Count 4.23L, Hemoglobin 10.7#L, Hematocrit 33L, Mean Corpuscular Volume 79L, Mean Corpuscular Hemoglobin 25, Mean Corpuscular Hemoglobin Concent 32, Red Cell Distribution Width 17.2H, Platelet Count 231, Mean Platelet Volume 10.6, Immature Granulocyte % (Auto) 1, Neutrophils (%) (Auto) 90H, Lymphocytes (%) (Auto) 4L, Monocytes (%) (Auto) 5, Eosinophils (%) (Auto) 0, Basophils (%) (Auto) 0, Neutrophils # (Auto) 15.1H, Lymphocytes # (Auto) 0.7L, Monocytes # (Auto) 0.8, Eosinophils # (Auto) 0.0, Basophils # (Auto) 0.0, Immature Granulocyte # (Auto) 0.2H, Sodium Level 137, Potassium Level 4.0, Chloride Level 111H, Carbon Dioxide Level 17L, Anion Gap 9, Blood Urea Nitrogen 14, Creatinine 0.74, Estimat Glomerular Filtration Rate 106, BUN/Creatinine Ratio 19, Glucose Level 123H, Calcium Level 8.3L, Corrected Calcium 9.3, Total Bilirubin 1.2H, Aspartate Amino Transf (AST/SGOT) 41H, Alanine Aminotransferase (ALT/SGPT) 25, Alkaline Phosphatase 272H, Total Protein 5.6L, Albumin 2.8L Microbiology 03/31/22 C. difficile GDH Antigen & Toxins - Final, Resulted 03/31/22 Stool Culture, Resulted Pending Assessment/Plan Assessment/Plan Assess & Plan/Chief Complaint Hepatic encephalopathy Flare of colitits Acute PE Right LE DVT Cirrhosis HTN COPD Continue home meds and monitor closely For the PE and recurrent DVTs, he would need 3 months of eliquis anticoagulation. Due to his history of encephalopathy with frequent colitis f samantha he has been unable to tolerate anticoagulation in the past. Pt would benefit from IVC filter and this is scheduled with Dr. Silveira today. Discussed plan to discharge after filter placement Clinical Quality Measures DVT/VTE Risk/Contraindication: Contraindications-Mechi: Other *list below* Other: dvt DIANA CASAS DO 04/02/22 0621: Supervisory-Addendum Brief Verification & Attestation Participated in pt care: history, MDM, physical Personally performed: exam, history, MDM, supervision of care Care discussed with: Medical Student Procedures: n/a Results interpretation: Verified all documentation Verification and Attestation of Medical Student E/M Service A medical student performed and documented this service in my presence. I reviewed and verified all information documented by the medical student and made modifications to such information, when appropriate. I personally performed the physical exam and medical decision making. Diana Casas, Apr 02, 2022,06:21 NARGIS YIN Apr 01, 2022 12:15 DIANA CASAS DO Apr 02, 2022 06:21
[2022-04-01] MEDS ORDERED: fentaNYL INJ 100 MCG/2 ML AMP ONE (13:09)
[2022-04-01] MEDS ORDERED: MIDAZOLAM 2 MG/2 ML (VERSED) VIAL ONE (13:09)
[2022-04-01] MEDS ORDERED: PROPOFOL INJECTION 50 ML IV ONE ×2 (13:09→13:50)
[2022-04-01] MEDS ORDERED: LACTATED RINGERS 1,000 ML IV PRN (13:15)
[2022-04-01] MEDS ORDERED: KETAMINE 50 MG/5 ML SYRINGE ONE (13:31)
[2022-04-01] MEDS ORDERED: ceFAZolin INJECTION 2,000 MG ONE (13:36)
[2022-04-01] MEDS ORDERED: GLYCOPYRROLATE 0.2 MG/ML (ROBINUL) 2 ML VIAL ONE (13:42)
[2022-04-01] MEDS ORDERED: BUP/EPI 0.25% 1:200,000 (MARCAINE) 30 ML VIAL INJ ONE (13:44)
[2022-04-01] MEDS ORDERED: HEParin (CENTRAL IV FLUSH) 500 UNIT/5 ML SYR XX ONE (13:45)
[2022-04-01] MEDS ORDERED: IOHEXOL 300 MG/ML 30 ML (OMNIPAQUE 300) VIAL INJ ONE (13:46)
[2022-04-01] MEDS ORDERED: ceFAZolin INJECTION 1,000 MG VIAL IV NR (14:00)
--- NOTE | 2022-04-01 14:08 | Progress Note-Post Operative ---
Post-Operative Progess Note Surgeon (s)/Bit Sharpener (s) Surgeon KARY INGRAM MD Bit Sharpener: none Pre-Operative Diagnosis hx multiple DVT, PE and contraindication anticoagulation Post-Operative Diagnosis same Procedure & Operative Findings Date of Procedure 04/01/22 Procedure Performed/Findings venogram, placement inferior venal caval filter under flouroscopy. Anesthesia Type mac with local Estimated Blood Loss Estimated blood loss (mL): minimal Specimens/Packing Specimens Removed none KARY INGRAM MD Apr 01, 2022 14:08
[2022-04-01] MEDS ORDERED: ONDANSETRON 4 MG/2 ML (SDV) Z0FRAN IVP PRN (14:15)
[2022-04-01] MEDS ORDERED: HYDROmorphone 2 MG/ML VIAL (DILAUDID) IV ONE (14:15)
[2022-04-01] MEDS: FUROSEMIDE 40 MG (LASIX) TAB PO SCH (15:11)
[2022-04-01] MEDS: SPIRONOLACTONE 100 MG (ALDACTONE) TABLET PO SCH (15:11)
[2022-04-01] MEDS: amLODIPine 5 MG (NORVASC) TAB PO SCH (15:11)
[2022-04-01] MEDS: BISOPROLOL 5 MG TAB (ZEBETA) PO SCH (15:12)
--- NOTE | 2022-04-01 17:16 | Diagnostic Imaging Report ---
INDICATION: Fluoroscopic guidance provided during IVC filter placement. COMPARISON: None Total fluoroscopy time: 73 seconds Total number of fluoroscopic images saved: 85 FINDINGS: Multiple intraoperative image intensifier views of the abdomen were obtained during IVC filter placement. Images provided show contrast opacifying the IVC. Final image shows indwelling IVC filter. Please note, interpreting radiologist was not present during the procedure. IMPRESSION: 1. Fluoroscopic guidance provided during IVC filter placement. Dictated by: Dictated on workstation # [id number]
[2022-04-01] MEDS ORDERED: RIVA1TAB PO (17:36)
[2022-04-01] MEDS ORDERED: PRED10TA22 PO (17:36)
--- NOTE | 2022-04-01 17:41 | Discharge Summary ---
Diagnosis/Chief Complaint Date of Admission Mar 30, 2022 at 06:00 Date of Discharge Discharge Date: Apr 01, 2022 Discharge Summary Discharge Physical Examination Allergies: Coded Allergies: No Known Drug Allergies (Verified , 02/20/19) Vitals & I&Os Vital Signs Date Time Temp Pulse Resp B/P (MAP) Pulse Ox O2 Delivery O2 Flow Rate FiO2 04/01/22 15:26 36.6 75 20 145/70 (95) 97 Room Air 04/01/22 14:30 10.00 03/30/22 08:40 21 Hospital Course Labs (last 24 hrs) Laboratory Tests 03/29/22 22:01: Influenza Type A (RT-PCR) Not Detected, Influenza Type B (RT-PCR) Not Detected, SARS-CoV-2 RNA (RT-PCR) Not Detected 03/29/22 22:03: White Blood Count 6.0, Red Blood Count 4.02L, Hemoglobin 10.2L, Hematocrit 32L, Mean Corpuscular Volume 79L, Mean Corpuscular Hemoglobin 25, Mean Corpuscular Hemoglobin Concent 32, Red Cell Distribution Width 17.0H, Platelet Count 152, Mean Platelet Volume 10.5, Immature Granulocyte % (Auto) 1, Neutrophils (%) (Auto) 84H, Lymphocytes (%) (Auto) 4L, Monocytes (%) (Auto) 10, Eosinophils (%) (Auto) 1, Basophils (%) (Auto) 1, Neutrophils # (Auto) 5.0, Lymphocytes # (Auto) 0.3L, Monocytes # (Auto) 0.6, Eosinophils # (Auto) 0.1, Basophils # (Auto) 0.1, Immature Granulocyte # (Auto) 0.0, Neutrophils % (Manual) 92, Lymphocytes % (Manual) 2, Monocytes % (Manual) 6, Blood Morphology Comment NORMAL, Prothrombin Time 16.0H, INR Comment 1.2, Activated Partial Thromboplast Time 44H, D-Dimer 9.41H, Sodium Level 132L, Potassium Level 3.2L, Chloride Level 104, Carbon Dioxide Level 19L, Anion Gap 9, Blood Urea Nitrogen 11, Creatinine 0.77, Estimat Glomerular Filtration Rate 105, BUN/Creatinine Ratio 14, Glucose Level 137H, Lactic Acid Level 1.72, Calcium Level 7.7L, Corrected Calcium 8.9, Magnesium Level 2.7H, Total Bilirubin 1.7H, Aspartate Amino Transf (AST/SGOT) 46H, Alanine Aminotransferase (ALT/SGPT) 25, Alkaline Phosphatase 269H, Troponin I < 0.028, B-Type Natriuretic Peptide 65.8, Total Protein 5.0L, Albumin 2.5L, Lipase 25, Procalcitonin 0.48H 03/29/22 22:08: Glucometer 127H 03/29/22 23:30: Urine Color YELLOW, Urine Clarity CLEAR, Urine pH 6.0, Urine Specific [place] 1.020, Urine Protein NEGATIVE, Urine Glucose (UA) NEGATIVE, Urine Ketones NEGATIVE, Urine Nitrite NEGATIVE, Urine Bilirubin NEGATIVE, Urine Urobilinogen 0.2, Urine Leukocyte Esterase NEGATIVE, Urine RBC (Auto) TRACE-IH, Urine RBC NONE, Urine WBC NONE, Urine Crystals NONE, Urine Bacteria NEGATIVE, Urine Casts NONE, Urine Mucus NEGATIVE, Urine Culture Indicated NO, Urine Opiates Screen NEGATIVE, Urine Oxycodone Screen NEGATIVE, Urine Methadone Screen NEGATIVE, Urine Propoxyphene Screen NEGATIVE, Urine Barbiturates Screen NEGATIVE, Ur Tricyclic Antidepressants Screen NEGATIVE, Urine Phencyclidine Screen NEGATIVE, Urine Amphetamines Screen NEGATIVE, Urine Methamphetamines Screen NEGATIVE, Urine Benzodiazepines Screen NEGATIVE, Urine Cocaine Screen NEGATIVE, Urine Cannabinoids Screen NEGATIVE 03/30/22 05:16: Ammonia 52H 03/30/22 10:50: White Blood Count 5.7, Red Blood Count 3.84L, Hemoglobin 9.8L, Hematocrit 30L, Mean Corpuscular Volume 78L, Mean Corpuscular Hemoglobin 26, Mean Corpuscular Hemoglobin Concent 33, Red Cell Distribution Width 16.9H, Platelet Count 142, Mean Platelet Volume 10.6, Immature Granulocyte % (Auto) 1, Neutrophils (%) (Auto) 89H, Lymphocytes (%) (Auto) 5L, Monocytes (%) (Auto) 5, Eosinophils (%) (Auto) 0, Basophils (%) (Auto) 0, Neutrophils # (Auto) 5.1, Lymphocytes # (Auto) 0.3L, Monocytes # (Auto) 0.3, Eosinophils # (Auto) 0.0, Basophils # (Auto) 0.0, Immature Granulocyte # (Auto) 0.0, Sodium Level 135, Potassium Level 3.2L, Chloride Level 108H, Carbon Dioxide Level 17L, Anion Gap 10, Blood Urea Nitrogen 10, Creatinine 0.68, Estimat Glomerular Filtration Rate 109, BUN/Creatinine Ratio 15, Glucose Level 217H, Calcium Level 7.7L, Corrected Calcium 9.0, Total Bilirubin 1.4H, Aspartate Amino Transf (AST/SGOT) 40H, Alanine Aminotransferase (ALT/SGPT) 25, Alkaline Phosphatase 260H, Total Protein 4.8L, Albumin 2.4L, Procalcitonin 0.27H 03/31/22 00:30: Stool Occult Blood Immunoassay POSITIVEH 03/31/22 05:15: White Blood Count 10.4, Red Blood Count 3.35L, Hemoglobin 8.6L, Hematocrit 26L, Mean Corpuscular Volume 78L, Mean Corpuscular Hemoglobin 26, Mean Corpuscular Hemoglobin Concent 33, Red Cell Distribution Width 16.8H, Platelet Count 145, Mean Platelet Volume 11.0, Immature Granulocyte % (Auto) 1, Neutrophils (%) (Auto) 89H, Lymphocytes (%) (Auto) 5L, Monocytes (%) (Auto) 5, Eosinophils (%) (Auto) 0, Basophils (%) (Auto) 0, Neutrophils # (Auto) 9.3H, Lymphocytes # (Auto) 0.5L, Monocytes # (Auto) 0.6, Eosinophils # (Auto) 0.0, Basophils # (Auto) 0.0, Immature Granulocyte # (Auto) 0.1, Sodium Level 134L, Potassium Level 3.4L, Chloride Level 110H, Carbon Dioxide Level 15L, Anion Gap 9, Blood Urea Nitrogen 13, Creatinine 0.70, Estimat Glomerular Filtration Rate 108, BUN/Creatinine Ratio 19, Glucose Level 139H, Calcium Level 7.7L, Corrected Calcium 9.1, Total Bilirubin 1.2H, Aspartate Amino Transf (AST/SGOT) 34, Alanine Aminotransferase (ALT/SGPT) 22, Alkaline Phosphatase 224H, Total Protein 4.6L, Albumin 2.2L, Magnesium Level 1.7 04/01/22 05:35: White Blood Count 16.8H, Red Blood Count 4.23L, Hemoglobin 10.7#L, Hematocrit 33L, Mean Corpuscular Volume 79L, Mean Corpuscular Hemoglobin 25, Mean Corpuscular Hemoglobin Concent 32, Red Cell Distribution Width 17.2H, Platelet Count 231, Mean Platelet Volume 10.6, Immature Granulocyte % (Auto) 1, Neutrophils (%) (Auto) 90H, Lymphocytes (%) (Auto) 4L, Monocytes (%) (Auto) 5, Eosinophils (%) (Auto) 0, Basophils (%) (Auto) 0, Neutrophils # (Auto) 15.1H, Lymphocytes # (Auto) 0.7L, Monocytes # (Auto) 0.8, Eosinophils # (Auto) 0.0, Basophils # (Auto) 0.0, Immature Granulocyte # (Auto) 0.2H, Sodium Level 137, Potassium Level 4.0, Chloride Level 111H, Carbon Dioxide Level 17L, Anion Gap 9, Blood Urea Nitrogen 14, Creatinine 0.74, Estimat Glomerular Filtration Rate 106, BUN/Creatinine Ratio 19, Glucose Level 123H, Calcium Level 8.3L, Corrected Calcium 9.3, Total Bilirubin 1.2H, Aspartate Amino Transf (AST/SGOT) 41H, Alanine Aminotransferase (ALT/SGPT) 25, Alkaline Phosphatase 272H, Total Protein 5.6L, Albumin 2.8L Microbiology 03/31/22 C. difficile [facility] Antigen & Toxins - Final, Resulted 03/31/22 Stool Culture - Preliminary, Resulted Culture In Progress Pending Labs Microbiology Date/Time Source Procedure Growth Status 03/31/22 00:30 Stool C. difficile GDH Antigen & Toxins - Final Resulted 03/31/22 00:30 Stool Culture - Preliminary Culture In Progress Resulted Laboratory Tests 03/29/22 22:01: Influenza Type A (RT-PCR) Not Detected, Influenza Type B (RT-PCR) Not Detected, SARS-CoV-2 RNA (RT-PCR) Not Detected 03/29/22 22:03: White Blood Count 6.0, Red Blood Count 4.02, Hemoglobin 10.2, Hematocrit 32, Mean Corpuscular Volume 79, Mean Corpuscular Hemoglobin 25, Mean Corpuscular Hemoglobin Concent 32, Red Cell Distribution Width 17.0, Platelet Count 152, Mean Platelet Volume 10.5, Immature Granulocyte % (Auto) 1, Neutrophils (%) (Auto) 84, Lymphocytes (%) (Auto) 4, Monocytes (%) (Auto) 10, Eosinophils (%) (Auto) 1, Basophils (%) (Auto) 1, Neutrophils # (Auto) 5.0, Lymphocytes # (Auto) 0.3, Monocytes # (Auto) 0.6, Eosinophils # (Auto) 0.1, Basophils # (Auto) 0.1, Immature Granulocyte # (Auto) 0.0, Neutrophils % (Manual) 92, Lymphocytes % (Manual) 2, Monocytes % (Manual) 6, Blood Morphology Comment NORMAL, Prothrombin Time 16.0, INR Comment 1.2, Activated Partial Thromboplast Time 44, D-Dimer 9.41, Sodium Level 132, Potassium Level 3.2, Chloride Level 104, Carbon Dioxide Level 19, Anion Gap 9, Blood Urea Nitrogen 11, Creatinine 0.77, Estimat Glomerular Filtration Rate 105, BUN/Creatinine Ratio 14, Glucose Level 137, Lactic Acid Level 1.72, Calcium Level 7.7, Corrected Calcium 8.9, Magnesium Level 2.7, Total Bilirubin 1.7, Aspartate Amino Transf (AST/SGOT) 46, Alanine Aminotransferase (ALT/SGPT) 25, Alkaline Phosphatase 269, Troponin I < 0.028, B- Type Natriuretic Peptide 65.8, Total Protein 5.0, Albumin 2.5, Lipase 25, Procalcitonin 0.48 03/29/22 22:08: Glucometer 127 03/29/22 23:30: Urine Color YELLOW, Urine Clarity CLEAR, Urine pH 6.0, Urine Specific [place] 1.020, Urine Protein NEGATIVE, Urine Glucose (UA) NEGATIVE, Urine Ketones NEGATIVE, Urine Nitrite NEGATIVE, Urine Bilirubin NEGATIVE, Urine Urobilinogen 0.2, Urine Leukocyte Esterase NEGATIVE, Urine RBC (Auto) TRACE-I, Urine RBC NONE, Urine WBC NONE, Urine Crystals NONE, Urine Bacteria NEGATIVE, Urine Casts NONE, Urine Mucus NEGATIVE, Urine Culture Indicated NO, Urine Opiates Screen NEGATIVE, Urine Oxycodone Screen NEGATIVE, Urine Methadone Screen NEGATIVE, Urine Propoxyphene Screen NEGATIVE, Urine Barbiturates Screen NEGATIVE, Ur Tricyclic Antidepressants Screen NEGATIVE, Urine Phencyclidine Screen NEGATIVE, Urine Amphetamines Screen NEGATIVE, Urine Methamphetamines Screen NEGATIVE, Urine Benzodiazepines Screen NEGATIVE, Urine Cocaine Screen NEGATIVE, Urine Cannabinoids Screen NEGATIVE 03/30/22 05:16: Ammonia 52 03/30/22 10:50: White Blood Count 5.7, Red Blood Count 3.84, Hemoglobin 9.8, Hematocrit 30, Mean Corpuscular Volume 78, Mean Corpuscular Hemoglobin 26, Mean Corpuscular Hemoglobin Concent 33, Red Cell Distribution Width 16.9, Platelet Count 142, Me an Platelet Volume 10.6, Immature Granulocyte % (Auto) 1, Neutrophils (%) (Auto) 89, Lymphocytes (%) (Auto) 5, Monocytes (%) (Auto) 5, Eosinophils (%) (Auto) 0, Basophils (%) (Auto) 0, Neutrophils # (Auto) 5.1, Lymphocytes # (Auto) 0.3, Monocytes # (Auto) 0.3, Eosinophils # (Auto) 0.0, Basophils # (Auto) 0.0, Immature Granulocyte # (Auto) 0.0, Sodium Level 135, Potassium Level 3.2, Chloride Level 108, Carbon Dioxide Level 17, Anion Gap 10, Blood Urea Nitrogen 10, Creatinine 0.68, Estimat Glomerular Filtration Rate 109, BUN/Creatinine Ratio 15, Glucose Level 217, Calcium Level 7.7, Corrected Calcium 9.0, Total Bilirubin 1.4, Aspartate Amino Transf (AST/SGOT) 40, Alanine Aminotransferase (ALT/SGPT) 25, Alkaline Phosphatase 260, Total Protein 4.8, Albumin 2.4, Procalcitonin 0.27 03/31/22 00:30: Stool Occult Blood Immunoassay POSITIVE 03/31/22 05:15: White Blood Count 10.4, Red Blood Count 3.35, Hemoglobin 8.6, Hematocrit 26, Mean Corpuscular Volume 78, Mean Corpuscular Hemoglobin 26, Mean Corpuscular Hemoglobin Concent 33, Red Cell Distribution Width 16.8, Platelet Count 145, Mean Platelet Volume 11.0, Immature Granulocyte % (Auto) 1, Neutrophils (%) (Auto) 89, Lymphocytes (%) (Auto) 5, Monocytes (%) (Auto) 5, Eosinophils (%) (Auto) 0, Basophils (%) (Auto) 0, Neutrophils # (Auto) 9.3, Lymphocytes # (Auto) 0.5, Monocytes # (Auto) 0.6, Eosinophils # (Auto) 0.0, Basophils # (Auto) 0.0, Immature Granulocyte # (Auto) 0.1, Sodium Level 134, Potassium Level 3.4, Chloride Level 110, Carbon Dioxide Level 15, Anion Gap 9, Blood Urea Nitrogen 13, Creatinine 0.70, Estimat Glomerular Filtration Rate 108, BUN/Creatinine Ratio 19, Glucose Level 139, Calcium Level 7.7, Corrected Calcium 9.1, Total Bilirubin 1.2, Aspartate Amino Transf (AST/SGOT) 34, Alanine Aminotransferase (ALT/SGPT) 22, Alkaline Phosphatase 224, Total Protein 4.6, Albumin 2.2, Magnesium Level 1.7 04/01/22 05:35: White Blood Count 16.8, Red Blood Count 4.23, Hemoglobin 10.7, Hematocrit 33, Mean Corpuscular Volume 79, Mean Corpuscular Hemoglobin 25, Mean Corpuscular Hemoglobin Concent 32, Red Cell Distribution Width 17.2, Platelet Count 231, Mean Platelet Volume 10.6, Immature Granulocyte % (Auto) 1, Neutrophils (%) (Auto) 90, Lymphocytes (%) (Auto) 4, Monocytes (%) (Auto) 5, Eosinophils (%) (Auto) 0, Basophils (%) (Auto) 0, Neutrophils # (Auto) 15.1, Lymphocytes # (Auto) 0.7, Monocytes # (Auto) 0.8, Eosinophils # (Auto) 0.0, Basophils # (Auto) 0.0, Immature Granulocyte # (Auto) 0.2, Sodium Level 137, Potassium Level 4.0, Chloride Level 111, Carbon Dioxide Level 17, Anion Gap 9, Blood Urea Nitrogen 14, Creatinine 0.74, Estimat Glomerular Filtration Rate 106, BUN/Creatinine Ratio 19, Glucose Level 123, Calcium Level 8.3, Corrected Calcium 9.3, Total Bilirubin 1.2, Aspartate Amino Transf (AST/SGOT) 41, Alanine Aminotransferase (ALT/SGPT) 25, Alkaline Phosphatase 272, Total Protein 5.6, Albumin 2.8 Discharge Home Medications: Active Scripts Active Prednisone 10 Mg Tab.ds.pk 10 Mg PO DAILY Take 6 tabs(60mg)daily,decrease by 1 tab(10MG)daily. Xarelto Starter Pack (Rivaroxaban) 15 Mg (42)- 20 Mg (9) Tab.ds.pk 1 Each PO UD 15mg by mouth twice daily x 21 days then 20mg by mouth daily Reported Prednisone 10 Mg Tab 20 Mg PO DAILY TAKES 2 (10MG) TABS Oxyir Tablet (Oxycodone HCl) 5 Mg Tab 5 Mg PO BID PRN Vitamin A (Vitamin A Palmitate) 10,000 Unit Capsule 10,000 Unit PO 1200 Furosemide 40 Mg Tablet 40 Mg PO DAILY Spironolactone 50 Mg Tablet 100 Mg PO DAILY TAKES 2 (50MG) TABS Magnesium Oxide 400 Mg Tablet 400 Mg PO BID Vitamin D2 (Ergocalciferol (Vitamin D2)) 1,250 Mcg Capsule 1,250 Mcg PO SAT @1200 Citalopram HBr (Citalopram Hydrobromide) 40 Mg Tablet 40 Mg PO HS Potassium Chloride 10 Meq Capsule.er 10 Meq PO 1200 Sulfasalazine 500 Mg Tablet 3,000 Mg PO HS TAKES 6 (500MG) TABS Bisoprolol Fumarate 10 Mg Tablet 10 Mg PO DAILY Omeprazole 40 Mg Capsule.dr 40 Mg PO DAILY Xifaxan (Rifaximin) 550 Mg Tablet 550 Mg PO BID Amlodipine Besylate 5 Mg Tablet 5 Mg PO DAILY Instructions to patient/family Please see electronic discharge instructions given to patient. Diagnosis/Problems Diagnosis/Problems (1) Pulmonary embolism Status: Acute Qualifiers: Qualified Codes: I26.99 - Other pulmonary embolism without acute cor pulmonale (2) End-stage liver disease Status: Acute (3) Hypokalemia (4) Primary biliary cholangitis Status: Acute (5) Ulcerative colitis Status: Chronic (6) Hepatic encephalopathy Status: Acute (7) Essential (primary) hypertension Status: Chronic Clinical Quality Measures DVT/VTE Risk/Contraindication: Contraindications-Mechi: Other *list below* Other: dvt DIANA BARRIGA DO Apr 01, 2022 17:41
--- NOTE | 2022-04-01 17:47 | Discharge Summary ---
Diagnosis/Chief Complaint Date of Admission Mar 30, 2022 at 06:00 Date of Discharge Discharge Date: Apr 01, 2022 Discharge Diagnosis Hepatic encephalopathy Flare of colitits Acute PE Right LE DVT Cirrhosis HTN COPD Discharge Summary Discharge Physical Examination Allergies: Coded Allergies: No Known Drug Allergies (Verified , 02/20/19) Vitals & I&Os Vital Signs Date Time Temp Pulse Resp B/P (MAP) Pulse Ox O2 Delivery O2 Flow Rate FiO2 04/01/22 18:10 36.6 75 20 145/70 97 Room Air 04/01/22 14:30 10.00 03/30/22 08:40 21 Hospital Course Was the Problem List Reviewed?: Yes Librado is a 57 yo male with PMH of ulcerative colitis and cirrhosis with history of hepatic encephalopathy. He sees hepatology at . Pt presented to ER on 03/29/22 with complaints of confusion, bloody diarrhea, and fatigue for the previous week. D-dimer was elevated at 9.41. CT revealed pulmonary embolism and colitis. Pt was admitted to Dr. Casas's service and started on Lovenox and Solu-Medrol. Procalcitonin was elevated at 0.34 so surgery was consulted. He has a history of being on Eliquis and having hematochezia from the colitis making it convert over to hepatic encephalopathy so we discussed need for IVC filter. Pt continued to have loose BM without visible blood. Stool occult was postitive on 03/31. He is scheduled to have the filter placed today with Dr. Silveira. Labs (last 24 hrs) Laboratory Tests 03/29/22 22:01: Influenza Type A (RT-PCR) Not Detected, Influenza Type B (RT-PCR) Not Detected, SARS-CoV-2 RNA (RT-PCR) Not Detected 03/29/22 22:03: White Blood Count 6.0, Red Blood Count 4.02L, Hemoglobin 10.2L, Hematocrit 32L, Mean Corpuscular Volume 79L, Mean Corpuscular Hemoglobin 25, Mean Corpuscular Hemoglobin Concent 32, Red Cell Distribution Width 17.0H, Platelet Count 152, Mean Platelet Volume 10.5, Immature Granulocyte % (Auto) 1, Neutrophils (%) (Auto) 84H, Lymphocytes (%) (Auto) 4L, Monocytes (%) (Auto) 10, Eosinophils (%) (Auto) 1, Basophils (%) (Auto) 1, Neutrophils # (Auto) 5.0, Lymphocytes # (Auto) 0.3L, Monocytes # (Auto) 0.6, Eosinophils # (Auto) 0.1, Basophils # (Auto) 0.1, Immature Granulocyte # (Auto) 0.0, Neutrophils % (Manual) 92, Lymphocytes % (Manual) 2, Monocytes % (Manual) 6, Blood Morphology Comment NORMAL, Prothrombin Time 16.0H, INR Comment 1.2, Activated Partial Thromboplast Time 44H, D-Dimer 9.41H, Sodium Level 132L, Potassium Level 3.2L, Chloride Level 104, Carbon Dioxide Level 19L, Anion Gap 9, Blood Urea Nitrogen 11, Creatinine 0.77, Estimat Glomerular Filtration Rate 105, BUN/Creatinine Ratio 14, Glucose Level 137H, Lactic Acid Level 1.72, Calcium Level 7.7L, Corrected Calcium 8.9, Magnesium Level 2.7H, Total Bilirubin 1.7H, Aspartate Amino Transf (AST/SGOT) 46H, Alanine Aminotransferase (ALT/SGPT) 25, Alkaline Phosphatase 269H, Troponin I < 0.028, B-Type Natriuretic Peptide 65.8, Total Protein 5.0L, Albumin 2.5L, Lipase 25, Procalcitonin 0.48H 03/29/22 22:08: Glucometer 127H 03/29/22 23:30: Urine Color YELLOW, Urine Clarity CLEAR, Urine pH 6.0, Urine Specific Pyatt 1.020, Urine Protein NEGATIVE, Urine Glucose (UA) NEGATIVE, Urine Ketones NEGATIVE, Urine Nitrite NEGATIVE, Urine Bilirubin NEGATIVE, Urine Urobilinogen 0.2, Urine Leukocyte Esterase NEGATIVE, Urine RBC (Auto) TRACE-IH, Urine RBC NONE, Urine WBC NONE, Urine Crystals NONE, Urine Bacteria NEGATIVE, Urine Casts NONE, Urine Mucus NEGATIVE, Urine Culture Indicated NO, Urine Opiates Screen NEGATIVE, Urine Oxycodone Screen NEGATIVE, Urine Methadone Screen NEGATIVE, Urine Propoxyphene Screen NEGATIVE, Urine Barbiturates Screen NEGATIVE, Ur Tricyclic Antidepressants Screen NEGATIVE, Urine Phencyclidine Screen NEGATIVE, Urine Amphetamines Screen NEGATIVE, Urine Methamphetamines Screen NEGATIVE, Urine Benzodiazepines Screen NEGATIVE, Urine Cocaine Screen NEGATIVE, Urine Cannabinoids Screen NEGATIVE 03/30/22 05:16: Ammonia 52H 03/30/22 10:50: White Blood Count 5.7, Red Blood Count 3.84L, Hemoglobin 9.8L, Hematocrit 30L, Mean Corpuscular Volume 78L, Mean Corpuscular Hemoglobin 26, Mean Corpuscular Hemoglobin Concent 33, Red Cell Distribution Width 16.9H, Platelet Count 142, Mean Platelet Volume 10.6, Immature Granulocyte % (Auto) 1, Neutrophils (%) (Auto) 89H, Lymphocytes (%) (Auto) 5L, Monocytes (%) (Auto) 5, Eosinophils (%) (Auto) 0, Basophils (%) (Auto) 0, Neutrophils # (Auto) 5.1, Lymphocytes # (Auto) 0.3L, Monocytes # (Auto) 0.3, Eosinophils # (Auto) 0.0, Basophils # (Auto) 0.0, Immature Granulocyte # (Auto) 0.0, Sodium Level 135, Potassium Level 3.2L, Chloride Level 108H, Carbon Dioxide Level 17L, Anion Gap 10, Blood Urea Nitrogen 10, Creatinine 0.68, Estimat Glomerular Filtration Rate 109, BUN/Creatinine Ratio 15, Glucose Level 217H, Calcium Level 7.7L, Corrected Calcium 9.0, Total Bilirubin 1.4H, Aspartate Amino Transf (AST/SGOT) 40H, Alanine Aminotransferase (ALT/SGPT) 25, Alkaline Phosphatase 260H, Total Protein 4.8L, Albumin 2.4L, Procalcitonin 0.27H 03/31/22 00:30: Stool Occult Blood Immunoassay POSITIVEH 03/31/22 05:15: White Blood Count 10.4, Red Blood Count 3.35L, Hemoglobin 8.6L, Hematocrit 26L, Mean Corpuscular Volume 78L, Mean Corpuscular Hemoglobin 26, Mean Corpuscular Hemoglobin Concent 33, Red Cell Distribution Width 16.8H, Platelet Count 145, Mean Platelet Volume 11.0, Immature Granulocyte % (Auto) 1, Neutrophils (%) (Auto) 89H, Lymphocytes (%) (Auto) 5L, Monocytes (%) (Auto) 5, Eosinophils (%) (Auto) 0, Basophils (%) (Auto) 0, Neutrophils # (Auto) 9.3H, Lymphocytes # (Auto) 0.5L, Monocytes # (Auto) 0.6, Eosinophils # (Auto) 0.0, Basophils # (Aut o) 0.0, Immature Granulocyte # (Auto) 0.1, Sodium Level 134L, Potassium Level 3.4L, Chloride Level 110H, Carbon Dioxide Level 15L, Anion Gap 9, Blood Urea Nitrogen 13, Creatinine 0.70, Estimat Glomerular Filtration Rate 108, BUN/Creatinine Ratio 19, Glucose Level 139H, Calcium Level 7.7L, Corrected Calcium 9.1, Total Bilirubin 1.2H, Aspartate Amino Transf (AST/SGOT) 34, Alanine Aminotransferase (ALT/SGPT) 22, Alkaline Phosphatase 224H, Total Protein 4.6L, Albumin 2.2L, Magnesium Level 1.7 04/01/22 05:35: White Blood Count 16.8H, Red Blood Count 4.23L, Hemoglobin 10.7#L, Hematocrit 33L, Mean Corpuscular Volume 79L, Mean Corpuscular Hemoglobin 25, Mean Corpuscular Hemoglobin Concent 32, Red Cell Distribution Width 17.2H, Platelet Count 231, Mean Platelet Volume 10.6, Immature Granulocyte % (Auto) 1, Neutrophils (%) (Auto) 90H, Lymphocytes (%) (Auto) 4L, Monocytes (%) (Auto) 5, Eosinophils (%) (Auto) 0, Basophils (%) (Auto) 0, Neutrophils # (Auto) 15.1H, Lymphocytes # (Auto) 0.7L, Monocytes # (Auto) 0.8, Eosinophils # (Auto) 0.0, Basophils # (Auto) 0.0, Immature Granulocyte # (Auto) 0.2H, Sodium Level 137, Potassium Level 4.0, Chloride Level 111H, Carbon Dioxide Level 17L, Anion Gap 9, Blood Urea Nitrogen 14, Creatinine 0.74, Estimat Glomerular Filtration Rate 106, BUN/Creatinine Ratio 19, Glucose Level 123H, Calcium Level 8.3L, Corrected Calcium 9.3, Total Bilirubin 1.2H, Aspartate Amino Transf (AST/SGOT) 41H, Alanine Aminotransferase (ALT/SGPT) 25, Alkaline Phosphatase 272H, Total Protein 5.6L, Albumin 2.8L Microbiology 03/31/22 C. difficile GDH Antigen & Toxins - Final, Resulted 03/31/22 Stool Culture - Preliminary, Resulted Culture In Progress Pending Labs Microbiology Date/Time Source Procedure Growth Status 03/31/22 00:30 Stool C. difficile GDH Antigen & Toxins - Final Resulted 03/31/22 00:30 Stool Culture - Preliminary Culture In Progress Resulted Laboratory Tests 03/29/22 22:01: Influenza Type A (RT-PCR) Not Detected, Influenza Type B (RT-PCR) Not Detected, SARS-CoV-2 RNA (RT-PCR) Not Detected 03/29/22 22:03: White Blood Count 6.0, Red Blood Count 4.02, Hemoglobin 10.2, Hematocrit 32, Mean Corpuscular Volume 79, Mean Corpuscular Hemoglobin 25, Mean Corpuscular Hemoglobin Concent 32, Red Cell Distribution Width 17.0, Platelet Count 152, Mean Platelet Volume 10.5, Immature Granulocyte % (Auto) 1, Neutrophils (%) (Auto) 84, Lymphocytes (%) (Auto) 4, Monocytes (%) (Auto) 10, Eosinophils (%) (Auto) 1, Basophils (%) (Auto) 1, Neutrophils # (Auto) 5.0, Lymphocytes # (Auto) 0.3, Monocytes # (Auto) 0.6, Eosinophils # (Auto) 0.1, Basophils # (Auto) 0.1, Immature Granulocyte # (Auto) 0.0, Neutrophils % (Manual) 92, Lymphocytes % (Manual) 2, Monocytes % (Manual) 6, Blood Morphology Comment NORMAL, Prothrombin Time 16.0, INR Comment 1.2, Activated Partial Thromboplast Time 44, D-Dimer 9.41, Sodium Level 132, Potassium Level 3.2, Chloride Level 104, Carbon Dioxide Level 19, Anion Gap 9, Blood Urea Nitrogen 11, Creatinine 0.77, Estimat Glomerular Filtration Rate 105, BUN/Creatinine Ratio 14, Glucose Level 137, Lactic Acid Level 1.72, Calcium Level 7.7, Corrected Calcium 8.9, Magnesium Level 2.7, Total Bilirubin 1.7, Aspartate Amino Transf (AST/SGOT) 46, Alanine Aminotransferase (ALT/SGPT) 25, Alkaline Phosphatase 269, Troponin I < 0.028, B- Type Natriuretic Peptide 65.8, Total Protein 5.0, Albumin 2.5, Lipase 25, Procalcitonin 0.48 03/29/22 22:08: Glucometer 127 03/29/22 23:30: Urine Color YELLOW, Urine Clarity CLEAR, Urine pH 6.0, Urine Specific Pyatt 1.020, Urine Protein NEGATIVE, Urine Glucose (UA) NEGATIVE, Urine Ketones NEGATIVE, Urine Nitrite NEGATIVE, Urine Bilirubin NEGATIVE, Urine Urobilinogen 0.2, Urine Leukocyte Esterase NEGATIVE, Urine RBC (Auto) TRACE-I, Urine RBC NONE, Urine WBC NONE, Urine Crystals NONE, Urine Bacteria NEGATIVE, Urine Casts NONE, Urine Mucus NEGATIVE, Urine Culture Indicated NO, Urine Opiates Screen NEGATIVE, Urine Oxycodone Screen NEGATIVE, Urine Methadone Screen NEGATIVE, Urine Propoxyphene Screen NEGATIVE, Urine Barbiturates Screen NEGATIVE, Ur Tricyclic Antidepressants Screen NEGATIVE, Urine Phencyclidine Screen NEGATIVE, Urine Amphetamines Screen NEGATIVE, Urine Methamphetamines Screen NEGATIVE, Urine Benzodiazepines Screen NEGATIVE, Urine Cocaine Screen NEGATIVE, Urine Cannabinoids Screen NEGATIVE 03/30/22 05:16: Ammonia 52 03/30/22 10:50: White Blood Count 5.7, Red Blood Count 3.84, Hemoglobin 9.8, Hematocrit 30, Mean Corpuscular Volume 78, Mean Corpuscular Hemoglobin 26, Mean Corpuscular Hemoglobin Concent 33, Red Cell Distribution Width 16.9, Platelet Count 142, Mean Platelet Volume 10.6, Immature Granulocyte % (Auto) 1, Neutrophils (%) (Auto) 89, Lymphocytes (%) (Auto) 5, Monocytes (%) (Auto) 5, Eosinophils (%) (Auto) 0, Basophils (%) (Auto) 0, Neutrophils # (Auto) 5.1, Lymphocytes # (Auto) 0.3, Monocytes # (Auto) 0.3, Eosinophils # (Auto) 0.0, Basophils # (Auto) 0.0, Immature Granulocyte # (Auto) 0.0, Sodium Level 135, Potassium Level 3.2, Chloride Level 108, Carbon Dioxide Level 17, Anion Gap 10, Blood Urea Nitrogen 10, Creatinine 0.68, Estimat Glomerular Filtration Rate 109, BUN/Creatinine Ratio 15, Glucose Level 217, Calcium Level 7.7, Corrected Calcium 9.0, Total Bilirubin 1.4, Aspartate Amino Transf (AST/SGOT) 40, Alanine Aminotransferase (ALT/SGPT) 25, Alkaline Phosphatase 260, Total Protein 4.8, Albumin 2.4, Procalcitonin 0.27 03/31/22 00:30: Stool Occult Blood Immunoassay POSITIVE 03/31/22 05:15: White Blood Count 10.4, Red Blood Count 3.35, Hemoglobin 8.6, Hematocrit 26, Mean Corpuscular Volume 78, Mean Corpuscular Hemoglobin 26, Mean Corpuscular Hemoglobin Concent 33, Red Cell Distribution Width 16.8, Platelet Count 145, Mean Platelet Volume 11.0, Immature Granulocyte % (Auto) 1, Neutrophils (%) (Auto) 89, Lymphocytes (%) (Auto) 5, Monocytes (%) (Auto) 5, Eosinophils (%) (Auto) 0, Basophils (%) (Auto) 0, Neutrophils # (Auto) 9.3, Lymphocytes # (Auto) 0.5, Monocytes # (Auto) 0.6, Eosinophils # (Auto) 0.0, Basophils # (Auto) 0.0, Immature Granulocyte # (Auto) 0.1, Sodium Level 134, Potassium Level 3.4, Chloride Level 110, Carbon Dioxide Level 15, Anion Gap 9, Blood Urea Nitrogen 13, Creatinine 0.70, Estimat Glomerular Filtration Rate 108, BUN/Creatinine Ratio 19, Glucose Level 139, Calcium Level 7.7, Corrected Calcium 9.1, Total Bilirubin 1.2, Aspartate Amino Transf (AST/SGOT) 34, Alanine Aminotransferase (ALT/SGPT) 22, Alkaline Phosphatase 224, Total Protein 4.6, Albumin 2.2, Magnesium Level 1.7 04/01/22 05:35: White Blood Count 16.8, Red Blood Count 4.23, Hemoglobin 10.7, Hematocrit 33, Mean Corpuscular Volume 79, Mean Corpuscular Hemoglobin 25, Mean Corpuscular Hemoglobin Concent 32, Red Cell Distribution Width 17.2, Platelet Count 231, Mean Platelet Volume 10.6, Immature Granulocyte % (Auto) 1, Neutrophils (%) (Auto) 90, Lymphocytes (%) (Auto) 4, Monocytes (%) (Auto) 5, Eosinophils (%) (Auto) 0, Basophils (%) (Auto) 0, Neutrophils # (Auto) 15.1, Lymphocytes # (Auto) 0.7, Monocytes # (Auto) 0.8, Eosinophils # (Auto) 0.0, Basophils # (Auto) 0.0, Immature Granulocyte # (Auto) 0.2, Sodium Level 137, Potassium Level 4.0, Chloride Level 111, Carbon Dioxide Level 17, Anion Gap 9, Blood Urea Nitrogen 14, Creatinine 0.74, Estimat Glomerular Filtration Rate 106, BUN/Creatinine Ratio 19, Glucose Level 123, Calcium Level 8.3, Corrected Calcium 9.3, Total Bilirubin 1.2, Aspartate Amino Transf (AST/SGOT) 41, Alanine Aminotransferase (ALT/SGPT) 25, Alkaline Phosphatase 272, Total Protein 5.6, Albumin 2.8 Discharge Home Medications: Active Scripts Active Eliquis (Apixaban) 5 Mg Tablet 10 Mg PO BID Prednisone 10 Mg Tab.ds.pk 10 Mg PO DAILY Take 6 tabs(60mg)daily,decrease by 1 tab(10MG)daily. Reported Oxyir Tablet (Oxycodone HCl) 5 Mg Tab 5 Mg PO BID PRN Vitamin A (Vitamin A Palmitate) 10,000 Unit Capsule 10,000 Unit PO 1200 Furosemide 40 Mg Tablet 40 Mg PO DAILY Spironolactone 50 Mg Tablet 100 Mg PO DAILY TAKES 2 (50MG) TABS Magnesium Oxide 400 Mg Tablet 400 Mg PO BID Vitamin D2 (Ergocalciferol (Vitamin D2)) 1,250 Mcg Capsule 1,250 Mcg PO SAT @1200 Citalopram HBr (Citalopram Hydrobromide) 40 Mg Tablet 40 Mg PO HS Potassium Chloride 10 Meq Capsule.er 10 Meq PO 1200 Sulfasalazine 500 Mg Tablet 3,000 Mg PO HS TAKES 6 (500MG) TABS Bisoprolol Fumarate 10 Mg Tablet 10 Mg PO DAILY Omeprazole 40 Mg Capsule.dr 40 Mg PO DAILY Xifaxan (Rifaximin) 550 Mg Tablet 550 Mg PO BID Amlodipine Besylate 5 Mg Tablet 5 Mg PO DAILY Instructions to patient/family Please see electronic discharge instructions given to patient. Diagnosis/Problems Diagnosis/Problems (1) Pulmonary embolism Status: Acute Qualifiers: Qualified Codes: I26.99 - Other pulmonary embolism without acute cor pulmonale (2) End-stage liver disease Status: Acute (3) Hypokalemia (4) Primary biliary cholangitis Status: Acute (5) Ulcerative colitis Status: Chronic (6) Hepatic encephalopathy Status: Acute (7) Essential (primary) hypertension Status: Chronic Clinical Quality Measures DVT/VTE Risk/Contraindication: Contraindications-Mechi: Other *list below* Other: dvt DIANA CASAS DO Apr 01, 2022 17:47
--- NOTE | 2022-04-02 01:11 | OPERATIVE REPORT ---
DATE OF SERVICE: 04/01/2022 ATTENDING PRIMARY CARE PHYSICIAN: Ivonne Casas DO PREOPERATIVE DIAGNOSES: Liver cirrhosis, ulcerative colitis, symptomatic rectal bleeding, multiple deep vein thrombosis and pulmonary embolism with contraindication to anticoagulation. POSTOPERATIVE DIAGNOSES: Liver cirrhosis, ulcerative colitis, symptomatic rectal bleeding, multiple deep vein thrombosis and pulmonary embolism with contraindication to anticoagulation. PROCEDURE: Venogram and placement of inferior vena cava filter. SURGEON: Kary Ingram MD ANESTHESIA: Monitored anesthesia care with local. ESTIMATED BLOOD LOSS: Minimal. FINDINGS: Liver cirrhosis, ulcerative colitis, symptomatic rectal bleeding, multiple deep vein thrombosis and pulmonary embolism with contraindication to anticoagulation. DISPOSITION: The patient tolerated the procedure well. INDICATIONS: The patient is a 57-year-old male with a history of liver cirrhosis as well as ulcerative colitis. He has been seeing Hepatology at [facility]. Due to his liver cirrhosis, he does get occasional episodes of hepatic encephalopathy and confusion. This is what happened and he was found to have an elevated D-dimer. Upon further questioning, he had reported noticing red blood per rectum for the past month. He was on anticoagulation with Eliquis. Further workup revealed that he developed a right lower extremity deep vein thrombosis of the distal superficial femoral artery extending into the popliteal vein. He also had a history of a right lower extremity DVT two years ago. CTA was also performed, which did show an isolated small pulmonary embolus of a single segmental branch of the left lower lobe. Due to these findings, he has a contraindication to anticoagulation and will require an inferior vena caval filter to prevent potential catastrophic pulmonary embolism. DESCRIPTION OF PROCEDURE: The patient was brought to the operating room, laid supine on the table. After adequate IV pain and sedative medications and monitored anesthesia care, the perineum, abdomen, and lower extremity were prepped and draped in standard surgical fashion. A 1% lidocaine with epinephrine was then used to anesthetize the inguinal region. The left femoral vein was then cannulated withdrawing the venous blood and the guidewire was then inserted under fluoroscopy. We then measured from T12 to approximately the junction between L2 and L3 and marked this with a hemostat. The dilator and sheath were then placed over the guidewire and the dilator removed. We then proceeded with a venogram where the takeoff of the renal veins were at approximately T12. The luminal diameter of the vena cava was approximately 18 mm. A TrapEase inferior vena caval filter was then placed under fluoroscopy between L2 and L3 properly positioned and did not move. The sheath was then removed with visualization of good hemostasis. The patient tolerated the procedure well. He may proceed with holding off on anticoagulation and again the main goal of the inferior vena cava filter is to prevent large clots breaking off from a lower extremity iliac or low vena cava clot, which would be large and cause a massive pulmonary embolism, which would not be compatible with life. For now, he may resume all of his previous medical care and ambulate as well as diet as tolerated. Job ID: [id number] DocumentID: [id number] Dictated Date: 04/01/2022 14:16:15 Manager [place] Date: 04/02/2022 01:08:00 Dictated By: KARY INGRAM MD MTDD
[2022-04-02] MEDS ORDERED: VITAMIN D2 1.25 MG (50,000 UNITS) CAP PO SCH (12:00)
--- NOTE | 2022-04-03 11:10 | Anesthesia-General Post-Op ---
MAC Patient Condition Mental Status/LOC: Same as Preop Cardiovascular: Satisfactory Nausea/Vomiting: Absent Respiratory: Satisfactory Pain: Controlled Complications: Absent Post Op Complications Complications None Follow Up Care/Instructions Patient Instructions None needed. Anesthesiology Discharge Order Discharge Order Patient is doing well, no complaints, stable vital signs, no apparent adverse anesthesia problems. No complications reported per nursing. FITZ BRAR CRNA Apr 03, 2022 11:10
== END 2022-04-01 18:10 | disposition home or self-care (01) | DRG 441 ==
LOC: EDUNIT# 21:15 → ER 21:17 → 4TH 03-30 03:40 → OBSVTOIN 03-30 06:00
PROVIDERS: ADMIT Internal Medicine; ATTEND Internal Medicine
PROC: B5191ZZ Fluoroscopy of Inferior Vena Cava using Low Osmolar Contrast (ICD-10-PCS; 2022-04-01)
PROC: 06H03DZ Insertion of Intraluminal Device into Inferior Vena Cava, Percutaneous Approach (ICD-10-PCS; principal; 2022-04-01 13:24)
DX: K76.82 Hepatic encephalopathy (principal); I26.99 Other pulmonary embolism without acute cor pulmonale; I82.401 Acute embolism and thrombosis of unspecified deep veins of right lower extremity; K51.90 Ulcerative colitis, unspecified, without complications; D68.32 Hemorrhagic disorder due to extrinsic circulating anticoagulants; K52.9 Noninfective gastroenteritis and colitis, unspecified; I10 Essential (primary) hypertension; J44.9 Chronic obstructive pulmonary disease, unspecified; Z20.822 Contact with and (suspected) exposure to COVID-19; E87.6 Hypokalemia; K74.3 Primary biliary cirrhosis; E78.00 Pure hypercholesterolemia, unspecified; M19.90 Unspecified osteoarthritis, unspecified site; E11.9 Type 2 diabetes mellitus without complications; F41.9 Anxiety disorder, unspecified; Z87.891 Personal history of nicotine dependence; F32.A Depression, unspecified; Z79.01 Long term (current) use of anticoagulants
CPT/HCPCS: 36415; 70450; 71045; 71275; 74177; 76000; 80053; 80306; 81000; 82140; 82274; 82947; 83605; 83690; 83735; 83880; 84145; 84484; 85007; 85025; 85027; 85379; 85610; 85730; 87015; 87045; 87046; 87324; 87449; 87636; 87899; 93970; 94760

== ENCOUNTER → 2022-06-03 | Outpatient (CLI) | payer MEDICARE ==
[~2022-06-03] MED LIST changes: +OXC5T PO; -POTA10CA43 PO; +POTA10CA44 PO; +PRD10T PO; +RIVA1TAB PO; +VITA-203 PO
--- NOTE | 2022-06-03 09:10 | Diagnostic Imaging Report ---
INDICATION: Cirrhosis and primary sclerosing cholangitis. PROCEDURE: Ultrasound abdomen complete. TECHNIQUE: Multiple real-time grayscale images were obtained of the abdomen in various projections. The liver is markedly heterogeneous and demonstrates a nodular contour consistent with cirrhosis. The portal vein is poorly visualized and there may be cavernous transformation. Gallbladder wall is slightly thickened at 4 mm but no stones are seen. The extrahepatic bile duct is not well visualized. Pancreas was obscured. Spleen is enlarged to 16 cm. Proximal aorta is ectatic but nonaneurysmal. The mid and distal aorta was obscured by bowel gas. IVC was obscured. Kidneys are without calculi or hydronephrosis. There is no ascites. IMPRESSION: 1. Cirrhotic liver morphology without evidence of discrete liver mass. 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 2. Thickened gallbladder wall, perhaps on the basis of hepatic dysfunction. No stones are seen. 3. Splenomegaly but no ascites. Dictated by: Dictated on workstation # [id number]
== END ==
LOC: RAD 08:00
PROVIDERS: ATTEND Nurse Practitioner Adult Health
DX: K83.01 Primary sclerosing cholangitis (principal); K74.69 Other cirrhosis of liver; R16.1 Splenomegaly, not elsewhere classified
CPT/HCPCS: 76700

== ENCOUNTER 2022-07-06 15:06 | Emergency (ER) | payer MEDICARE ==
[~2022-07-06] VITALS: Ht 180 cm; Wt 113.3 kg
[2022-07-06 15:18] VITALS: BP 137/71
--- NOTE | 2022-07-06 15:39 | ED Back Pain ---
General Chief Complaint: Trauma-Non Activation Stated Complaint: FALL - BACK PAIN Nursing Triage Note: pt had mechincal fall from standing at 0800 this morning and landed on back. pt reports 9/10 pain in lower back and umbilical region of abdomen. pt on blood thinners, denies hitting head. Source of Information: Patient Exam Limitations: No Limitations History of Present Illness Date Seen by Provider: Jul 06, 2022 Time Seen by Provider: 15:38 Initial Comments Patient is a 57-year-old male who presents to the ED for middle lower back pain. Patient was tying his shoe around 8:00 this morning. He states when he lifted his foot up onto the counter he fell backwards landing on his mid to lower back. Denies hitting his head or loss of consciousness. Does take Xarelto. Patient complaining of mid to lower back pain worse with any type of movement. Has been using a cane for support. Denies of any bowel or urine incontinence, saddle paresthesia, lower extremity weakness. Denies of any bruising. Denies of any radiating pain to the abdomen or chest. Patient with end-stage liver disease. Denies headache, dizziness, visual changes, unilateral muscle weakness or sensory changes Allergies and Home Medications Allergies Coded Allergies: No Known Drug Allergies (Verified , 02/20/19) Patient Home Medication List Home Medication List Reviewed: Yes Amlodipine Besylate (Amlodipine Besylate) 5 Mg Tablet, 5 MG PO DAILY, (Reported) Entered as Reported by: ARGENTINA LATHAM on 07/02/18 1639 Apixaban (Eliquis) 5 Mg Tablet, 10 MG PO BID Prescribed by: DIANA BARRIGA on 04/01/22 1746 Bisoprolol Fumarate (Bisoprolol Fumarate) 10 Mg Tablet, 10 MG PO DAILY, (Reported) Entered as Reported by: ARGENTINA LATHAM on 07/02/18 1639 Citalopram Hydrobromide (Citalopram HBr) 40 Mg Tablet, 40 MG PO HS, (Reported) Entered as Reported by: ИВАН MCGHEE on 01/23/20 1656 Ergocalciferol (Vitamin D2) (Vitamin D2) 1,250 Mcg Capsule, 1,250 MCG PO SAT @1200, (Reported) Entered as Reported by: ИВАН MCGHEE on 06/22/20 0911 Furosemide (Furosemide) 40 Mg Tablet, 40 MG PO DAILY, (Reported) Entered as Reported by: ИВАН MCGHEE on 10/15/21 09 Magnesium Oxide (Magnesium Oxide) 400 Mg Tablet, 400 MG PO BID, (Reported) Entered as Reported by: ИВАН MCGHEE on 10/15/21 09 Omeprazole (Omeprazole) 40 Mg Capsule.dr, 40 MG PO DAILY, (Reported) Entered as Reported by: ARGENTINA LATHAM on 07/02/18 1639 Oxycodone HCl (Oxycodone HCl) 5 Mg Tablet, 5 MG PO Q6H Prescribed by: ISABEL STEPHENS on 07/06/22 1701 Oxycodone Hcl (Oxyir Tablet) 5 Mg Tab, 5 MG PO BID PRN for PAIN-SEVERE (8-10), (Reported) Entered as Reported by: ИВАН MCGHEE on 03/30/22 111 Potassium Chloride (Potassium Chloride) 10 Meq Capsule.er, 10 MEQ PO 1200, (Reported) Entered as Reported by: ИВАН MCGHEE on 01/23/20 165 Prednisone (Prednisone) 10 Mg Tab.ds.pk, 10 MG PO DAILY Prescribed by: DIANA BARRIGA on 04/01/22 1736 Rifaximin (Xifaxan) 550 Mg Tablet, 550 MG PO BID, (Reported) Entered as Reported by: ARGENTINA LATHAM on 07/02/18 163 Spironolactone (Spironolactone) 50 Mg Tablet, 100 MG PO DAILY, (Reported) Entered as Reported by: ИВАН MCGHEE on 10/15/21 0944 Sulfasalazine (Sulfasalazine) 500 Mg Tablet, 3,000 MG PO HS, (Reported) Entered as Reported by: ИВАН MCGHEE on 01/23/20 165 Vitamin A Palmitate (Vitamin A) 10,000 Unit Capsule, 10,000 UNIT PO 1200, (Reported) Entered as Reported by: ИВАН MCGHEE on 03/30/22 1119 Review of Systems Constitutional: No chills, No diaphoresis EENTM: No mouth pain, No throat pain, No throat swelling Respiratory: No cough Cardiovascular: No chest pain Gastrointestinal: No abdominal pain, No diarrhea, No nausea, No vomiting Genitourinary: No decreased output, No discharge Musculoskeletal: back pain, joint pain Skin: No change in color, No change in hair/nails All Other Systems Reviewed Negative Unless Noted: Yes Past Zezoewm-Laafgo-Sfbzzr Hx Patient Social History Tobacco Use?: No Substance use?: No Alcohol Use?: No Pt feels they are or have been: No Immunizations Up To Date Tetanus Booster (TDap): Unknown Influenza Vaccine Up-to-Date: Yes; Up-to-Date First/Initial COVID19 Vaccinat: October COVID19 Vaccination Yair: Nov COVID19 Vaccination Date: OCTOBER Seasonal Allergies Seasonal Allergies: No Past Medical History Surgery/Hospitalization HX: HERE WITHIN THE LAST YEAR, DATES UNKNOWN Surgeries: Yes (colonoscopies, lipoma removal ) Respiratory: No Currently Using CPAP: Yes Cardiac: Yes Deep Vein Thrombosis, High Cholesterol, Hypertension Neurological: Yes (hepatic encephalopathy) Sexually Transmitted Disease: No HIV/AIDS: No Genitourinary: No Gastrointestinal: Yes Crohns Disease, Esophageal Varices, Cirrhosis Musculoskeletal: Yes Degenerate Disk Disease, Arthritis Endocrine: No Diabetes, Insulin dep HEENT: Yes (Presbyopia, Lateral Strabismus of R eye ) Loss of Vision: Bilateral Hearing Impairment: Hard of Hearing Cancer: No Psychosocial: Yes Anxiety, Depression Integumentary: Yes Psoriasis Blood Disorders: No Adverse Reaction/Blood Tranf: No (N/A) Family Medical History Cardiovascular disease 19 FATHER Diabetes mellitus 19 FATHER FH: hypertension 19 MOTHER Myocardial infarction 19 FATHER 19 MOTHER G8 BROTHER Cancer, CAD Over 55 Years Old, Diabetes, Hypertension Physical Exam Vital Signs Vital Signs - First Documented 07/06/22 15:18 Temp 37.0 Pulse 24 Resp 18 B/P (MAP) 137/71 (93) Pulse Ox 97 O2 Delivery Room Air Capillary Refill : Height, Weight, BMI Height: 5'10.00" Weight: 289lbs. 0.0oz. 131.277392tf; 34.00 BMI Method:Stated General Appearance: No Apparent Distress, WD/WN HEENT: PERRL/EOMI, TMs Normal, Normal ENT Inspection, Pharynx Normal Neck: Full Range of Motion, Normal Inspection, Non Tender, Supple Cardiovascular: Regular Rate, Rhythm, No Edema, No Gallop, No JVD Respiratory: Chest Non Tender, Lungs Clear, Normal Breath Sounds, No Accessory Muscle Use Gastrointestinal: Normal Bowel Sounds, No Organomegaly, No Pulsatile Mass, Non Tender Back: Vertebral Tenderness (Thoracic and lumbar midline tenderness. Bilateral thoracic paraspinal muscle tenderness.) Extremity: Normal Capillary Refill, Normal Inspection, Normal Range of Motion, Non Tender Neurologic/Psychiatric: Alert, Oriented x3, No Motor/Sensory Deficits, Normal Mood/Affect Skin: Warm/Dry Progress/Results/Core Measures Results/Orders My Orders Orders - GEOVANNY SUAZO PA Ct Thoracic/Lumbar Spine Wo (07/06/22 15:32) Tramadol Tablet (Ultram Tablet) (07/06/22 15:32) Chest Pa/Lat (2 View) (07/06/22 15:41) Vital Signs/I&O 07/06/22 07/06/22 15:18 15:31 Temp 37.0 Pulse 24 Resp 18 B/P (MAP) 137/71 (93) 141/73 (95) Pulse Ox 97 O2 Delivery Room Air Blood Pressure Mean: 95 Departure Communication (Admissions) Time/Spoke to Admitting Phy: 16:[address] Silveira at 1645 regarding patient. Recommends TLSO. Pain medication follow-up outpatient Félix. Communication (PCP) Patient with a mechanical fall standing height. Nontrauma activation. Denies hitting his head or loss of consciousness. GCS 15. Alert and orient x3. No evidence of head injury. He has thoracic and lumbar midline tenderness without bruising or swelling. Denies shortness of breath or abdominal pain. Denies any vomiting or bloody stools. Due to location of pain CT scan of the lumbar and thoracic spine was ordered. Chest x-ray due to location of pain on the left lower thoracic paraspinal muscle tenderness. Lung sounds clear bilateral. Chest x-ray was unremarkable. CT scan of thoracic spine shows there a subtle compression deformity involving the superior anterior aspect of the T11 vertebrae. There is a questionable nondisplaced fracture involving the posterior aspect of right T1 and T2 ribs. He has no tenderness dislocation. CT lumbar spine was unremarkable. Discussed these results with patient. Patient was requesting a dose of pain medication that was not as strong. Patient was given a dose of Ultram initially. Found out patient has end-stage liver disease. Discussed limited use of acetaminophen. Did discuss Ultram is not as recommended. Consider oxycodone as needed. Patient does have a cane. Was not able to get a TLSO brace. Discussed following up with DME. Attempted to put in a order. Discussed restrictions. Due to the mechanism of injury and fall with T11 compression vertebra fracture trauma surgeon Dr. Silveira was contacted. Recommends conservative treatment at this time. Did provide neurosurgery outpatient follow-up. Patient feels comfortable going home at this time. Margo bueno has no focal neural deficits. Return precaution were discussed with patient. Patient will be discharged at this time Impression Primary Impression: Compression fracture of T11 vertebra Disposition: HOME, SELF-CARE Condition: Stable Admissions Decision to Admit Reason: Admit from ER (General) Decision to Admit/Date: Jul 06, 2022 Time/Decision to Admit Time: 18:38 Departure-Patient Inst. Decision time for Depature: 16:50 Referrals: DIANA BARRIGA DO (PCP/Family) Primary Care Physician Patient Instructions: Vertebral Compression Fracture Add. Discharge Instructions: Recommend follow-up with your primary care physician for further evaluation. Follow-up with [facility] [phone] for further evaluation. Caution with pain medication All discharge instructions reviewed with patient and/or family. Voiced understanding. Scripts Oxycodone HCl (Oxycodone HCl) 5 Mg Tablet 5 MG PO Q6H, #8 TAB Prov: GEOVANNY SUAZO 07/06/22 GEOVANNY SUAZO Jul 06, 2022 15:39
--- NOTE | 2022-07-06 16:08 | Diagnostic Imaging Report ---
INDICATION: Right-sided rib pain. PA and lateral chest obtained at 4:07 p.m. FINDINGS: Heart and mediastinal silhouette are normal in appearance. The lungs are clear. There is no pneumothorax or pleural fluid. There is no overt bony abnormality in the chest. IMPRESSION: Negative chest. Dictated by: Dictated on workstation # [id number]
--- NOTE | 2022-07-06 16:20 | Diagnostic Imaging Report ---
CLINICAL INDICATION: Patient status post fall this morning. Patient has mid back pain and mid abdominal pain and on blood thinners. Exam: Axial CT scan of the thoracic and lumbar spine performed without IV contrast. Sagittal and coronal reformations were performed. Bone and soft tissue windows were created. Auto Exposure Controls were utilized during the CT exam to meet ALARA standards for radiation dose reduction. COMPARISON: CT angiogram of the chest with contrast dated 03/30/2022. CT scan of the abdomen and pelvis with contrast dated 03/29/2022. FINDINGS: Thoracic Spine: There is a subtle compression fracture deformity involving the superior anterior aspect of the T11 vertebra. There is no other thoracic spine fracture seen. There are questionable nondisplaced fractures involving the posterior aspect of the right T1 and T2 ribs. Lumbar Spine: Lumbar spine shows no acute fracture or dislocation. There are small degenerative spurs involving the lumbar spine and lower lumbar spine facet arthropathy. IMPRESSION: 1: There is a subtle compression deformity involving the superior anterior aspect of the T11 vertebra. 2: There are questionable nondisplaced fractures involving the posterior aspects of the right T1 and T2 ribs. 3: There is no acute lumbar spine fracture or dislocation. Dictated by: Dictated on workstation # [id number]
[2022-07-06] MEDS ORDERED: OXYC5TAB PO (17:00)
== END 2022-07-06 17:52 | disposition home or self-care (01) ==
LOC: EDUNIT# 15:06 → ER 15:07
DX: S22.088A Other fracture of T11-T12 vertebra, initial encounter for closed fracture (principal); Z79.01 Long term (current) use of anticoagulants; W18.30XA Fall on same level, unspecified, initial encounter
CPT/HCPCS: 71046; 72128; 72131; 99281

== ENCOUNTER 2022-07-14 17:44 | Observation (INO) | payer MEDICARE ==
[~2022-07-14] VITALS: Ht 180.3 cm; Wt 120.6 kg
[2022-07-14] MEDS ORDERED: NS IV 1000 ML 1,000 ML IV SCH ×2 (18:15→20:32)
[2022-07-14] MEDS ORDERED: ANTACID SUSP 30 ML UDC (MYLANTA) PO PRN (18:15)
[2022-07-14] MEDS ORDERED: CALCIUM CARBONATE 500 MG (TUMS) TAB.CHEW PO PRN (18:15)
[2022-07-14] MEDS ORDERED: MELATONIN 3 MG TABLET PO PRN (18:15)
[2022-07-14] MEDS ORDERED: ONDANSETRON 4 MG/2 ML (SDV) Z0FRAN IV PRN (18:15)
[2022-07-14] MEDS ORDERED: ONDANSETRON 4 MG (ZOFRAN) ORAL DISSOLVE TAB PO PRN (18:15)
[2022-07-14] MEDS ORDERED: HYDROmorphone 2 MG/ML VIAL (DILAUDID) IV PRN (18:15)
[2022-07-14] MEDS ORDERED: diphenhydrAMINE 25 MG TAB (BENADRYL) PO PRN (18:15)
[2022-07-14] MEDS ORDERED: BISACODYL 10 MG SUPP (DULCOLAX) PR PRN (18:15)
[2022-07-14] MEDS ORDERED: ACETAMINOPHEN 325 MG TABLET PO PRN (18:15)
[2022-07-14] MEDS ORDERED: polyethylene glycoL POWDER 17 GM (MIRALAX) PACK PO PRN (18:15)
[2022-07-14] MEDS ORDERED: diphenhydrAMINE 50 MG/ML INJ (BENADRYL) IVP PRN (18:15)
[2022-07-14] MEDS ORDERED: LACTULOSE SYRUP 10GM/15ML (ENULOSE) 30ML UDC PO PRN (18:15)
[2022-07-14] MEDS ORDERED: MILK OF MAGNESIA 400 MG/5 ML 30 ML UDC PO PRN (18:15)
--- OUTSIDE RECORDS SUMMARY | 2022-07-14 18:19 | XMS REPORT | Clinical Summary ---
Author Author [facility] Organization [facility] Address Unknown Phone Unavailable Care Team Providers Care Merchant Mill Utility Worker Name Role Phone Ivonne Casas DO PCP Alfred Chaparro MD Unavailable Jose M Zepeda DO Unavailable Hermelindo Harrison MD Unavailable Source Comments Some departments are not documenting in the electronic medical record. If you d o not see the information that you expected, contact Release of Information in [facility] department at [phone] for further assistan ce in locating additional records.[facility] Allergies No known active allergies Medications End Date Status Medication Sig Dispensed Refills Start Date Active sulfaSALAzine Take 500 mg 0 (AZULFIDINE) 500 mg by mouth tablet daily. 5 pills once daily Active amLODIPine (NORVASC) 5 mg Take 5 mg by 0 tablet mouth daily. Active bisoprolol (ZEBETA) 10 mg Take 10 mg by 0 tablet mouth daily. Active spironolactone Take 50 mg by 0 (ALDACTONE) 25 mg tablet mouth twice daily. Take with food. Active magnesium oxide 400 mg Take 400 mg 0 cap by mouth twice daily. Active omeprazole DR(+) Take 40 mg by 0 (PRILOSEC) 40 mg capsule mouth daily before breakfast. Active potassium chloride SR Take 10 mEq 0 (K-DUR) 10 mEq tablet by mouth daily. Take with a meal and a full glass of water. Active citalopram hydrobromide Take 40 mg by 0 (CELEXA PO) mouth daily. Active vitamin A 10,000 unit Take one 90 capsule 0 01/29 capsuleIndications: capsule by 1 vitamin A deficiency mouth daily. Indications: a low amount of vitamin A in the body Additional Information Patient taking differently: 3,000 Units Oral DAILY, Indications: vitamin A deficiency, Reported on 05/04/2021 Active furosemide (LASIX) 40 mg Take 40 mg by 0 tablet mouth every morning. Active ergocalciferol (vitamin Take one 12 capsule 0 D2) (VITAMIN D2) 1,250 capsule by 2 mcg (50,000 unit) capsule mouth every 7 days. Active predniSONE (DELTASONE) Take 2.5 mg 0 2.5 mg tablet by mouth daily. Active rifAXIMin (XIFAXAN) 550 Take one 60 tablet 11 mg tabletIndications: tablet by 3 Liver failure without mouth every hepatic coma, unspecified 12 hours. chronicity (HCC), Other cirrhosis of liver (HCC), Cirrhosis of liver without ascites, unspecified hepatic cirrhosis type (HCC) Active rivaroxaban (XARELTO PO) Take by 0 mouth. Active Problems Problem Noted Date Portal hypertension 06/15/2022 Primary sclerosing cholangitis 03/13/2018 Ulcerative colitis 03/13/2018 Essential hypertension 03/13/2018 Chronic liver disease 03/07/2018 Encounters Care Team Description Date Type Specialty Maribell Kolb APRN-NP Other ([facility] PAP) 06/16/2022 Telephone Hepatology Zoila Chatterjee MD Goff, Ashley M, APRN-NP Other cirrhosis of liver (HCC) (Primary Dx); Primary sclerosing cholangitis; Chronic liver disease; Health care maintenance; Encounter for observation for other suspected diseases and conditions ruled out; Portal hypertension (HCC) 06/14/2022 Office Visit Hepatology Telehealth Coral Esparza MA Other cirrhosis of liver (HCC); Primary sclerosing cholangitis; Chronic liver disease; Health care maintenance 06/09/2022 Orders Only Hepatology Kelley Black RN Primary sclerosing cholangitis; Other cirrhosis of liver (HCC) 06/09/2022 Orders Only Transplant Surgery Racquel Arreola Other cirrhosis of liver (HCC); Primary sclerosing cholangitis; Chronic liver disease; Health care maintenance 06/07/2022 Orders Only Transplant Surgery Coral Esparza MA Other cirrhosis of liver (HCC); Primary sclerosing cholangitis; Chronic liver disease; Health care maintenance; Vitamin D deficiency 06/06/2022 Orders Only Hepatology Maribell Kolb APRN-NP 05/25/2022 Documentation Hepatology Maribell Kolb APRN-NP Other cirrhosis of liver (HCC) (Primary Dx); Primary sclerosing cholangitis; Chronic liver disease; Health care maintenance; Vitamin D deficiency 05/25/2022 Orders Only Hepatology from Last 3 Months Immunizations Name Administration Dates Next Due Flu Vaccine =>6 Months 02/05/2021 Quadrivalent PF Social History Date Tobacco Use Types Packs/Day Years Used Smoking Tobacco: Former Smokeless Tobacco: Never Tobacco Cessation: Counseling Given: Yes Comments Alcohol Use Standard Drinks/Week No 0 (1 standard drink = 0.6 o z pure alcohol) Sex Assigned at Date Recorded Male 05/03/2021 8:06 AM LATH TIER Obstetrics History Last Filed Vital Signs Reading Time Taken Comments Vital Sign 139/65 02/05/2021 10:42 AM CDT Blood Pressure 63 02/05/2021 10:42 AM CDT Pulse 36.8 C (98.2 F) 02/27/2020 10:21 AM CDT Temperature 16 02/27/2020 10:21 AM CDT Respiratory Rate 98% 02/05/2021 10:42 AM CDT Oxygen Saturation - - Inhaled Oxygen Concentration 109.2 kg (240 lb 12.8 oz) 12/02/2021 1:13 PM CDT Weight 177.8 cm (5' 10") 12/02/2021 1:13 PM CDT Height 34.55 12/02/2021 1:13 PM CDT Body Mass Index Plan of Treatment Health Maintenance Due Date Last Done Comments MEDICARE ANNUAL WELLNESS 1966 VISIT HIV SCREENING 1981 DTAP/TDAP VACCINES (1 - 1984 Tdap) HEPATITIS C SCREENING 1984 PHYSICAL (COMPREHENSIVE) 1984 EXAM SHINGLES RECOMBINANT 1985 VACCINE (1 of 2) COLORECTAL CANCER 2011 SCREENING COVID-19 VACCINE (4 - 07/08/2021 05/13/2021, Booster for Moderna 10/27/2020, series) 09/29/2020 INFLUENZA VACCINE (#1) 2021 02/05/2021 DEPRESSION SCREENING 05/01/2022 08/03/2021 Procedures Comments Procedure Name Priority Date/Time Associated Diag nosis US ABDOMEN COMPLETE Routine 06/03/2022 Primary sc lerosing 10:44 AM LATH TIER cholangitis Other cirrhosis of liver (HCC) VITAMIN A Routine 06/03/2022 Other cirrhosis of liver 8:55 AM LATH TIER (HCC) Primary sclerosing cholangitis Chronic liver disease Health care maintenance ALPHA FETO PROTEIN (AFP) Routine 06/03/2022 Other cirrhosis of liver 8:55 AM LATH TIER (HCC) Primary sclerosing cholangitis Chronic liver disease Health care maintenance CBC AND DIFF Routine 06/03/2022 Other cirrhosis of liver 8:55 AM LATH TIER (HCC) Primary sclerosing cholangitis Chronic liver disease Health care maintenance COMPREHENSIVE METABOLIC Routine 06/03/2022 Other cirrhosis of liver PANEL 8:55 AM LATH TIER (HCC) Primary sclerosing cholangitis Chronic liver disease Health care maintenance 25-OH VITAMIN D (D2 + D3) Routine 06/03/2022 Othe r cirrhosis of liver 8:55 AM LATH TIER (HCC) Primary sclerosing cholangitis Chronic liver disease Health care maintenance Vitamin D deficiency PROTIME INR (PT) Routine 06/03/2022 Other cirrhos is of liver 8:55 AM LATH TIER (HCC) Primary sclerosing cholangitis Chronic liver disease Health care maintenance from Last 3 Months Results * US ABDOMEN COMPLETE (06/03/2022 10:44 AM LATH TIER) Modality Anatomical Region Laterality Other Abdomen Maribell Kolb US ORDERABLES HAT BLOCKER-WRAPPER HAND * VITAMIN A (06/03/2022 8:55 AM LATH TIER) Pathologist Signature Component Value Ref Test Method Analysis Performed A t Range Time Vitamin A 0.30 [facility] Anatomical Location / Laterality Collection Method / Volume Timi ection Time Received Time Specimen (Source) BLOOD / Unknown 06/03/2022 8:55 AM LATH TIER Narrative [facility] - 06/09/2022 12:00 AM LATH TIER Outside Lab Verified by Coral Esparza on 06/09/2022. Maribell Kolb LABORATORY ORDERABLES HAT BLOCKER-WRAPPER HAND City/State/ZIP Code Phone Number Performing Address Organization [facility] * ALPHA FETO PROTEIN (AFP) (06/03/2022 8:55 AM LATH TIER) Pathologist Signature Component Value Ref Test Method Analysis Performed A t Range Time Alpha Feto Protein 5.2 0.0 - [facility] FACE 9.03 Anatomical Location / Laterality Collection Method / Volume Timi ection Time Received Time Specimen (Source) BLOOD / Unknown 06/03/2022 8:55 AM LATH TIER Narrative [facility] - 06/07/2022 12:00 AM LATH TIER Outside Lab Verified by Racquel Arreola on 06/07/2022. Maribell Garcia [place] LABORATORY ORDERABLES HAT BLOCKER-[facility]/State/ZIP Code Phone Number Performing Address Organization [facility] * 25-OH VITAMIN D (D2 + D3) (06/03/2022 8:55 AM LATH TIER) Pathologist Signature Component Value Ref Test Method Analysis Performed A t Range Time Vitamin 53.85 [facility] D(25-OH)Total Anatomical Location / Laterality Collection Method / Volume Timi ection Time Received Time Specimen (Source) BLOOD / Unknown 06/03/2022 8:55 AM LATH TIER Narrative [facility] - 06/06/2022 12:00 AM LATH TIER Outside Lab Verified by Coral Esaprza on 06/06/2022. Maribell Kolb LABORATORY ORDERABLES [facility]/ZIP Code Phone Number Performing Address Organization [facility] * (ABNORMAL) PROTIME INR (PT) (06/03/2022 8:55 AM LATH TIER) Pathologist Signature Component Value Ref Test Method Analysis Performed A t Range Time INR 2.1 (H) 0.9 - [facility] 1.1 Protime 22.1 (H) 11.3 - [facility] 14.1 Anatomical Location / Laterality Collection Method / Volume Timi ection Time Received Time Specimen (Source) BLOOD / Unknown 06/03/2022 8:55 AM LATH TIER Narrative [facility] - 06/06/2022 12:00 AM LATH TIER Outside Lab Verified by Coral Esparza on 06/06/2022. Maribell Kolb LABORATORY ORDERABLES HAT BLOCKER-[facility]/State/ZIP Code Phone Number Performing Address Organization [facility] * (ABNORMAL) CBC AND DIFF (06/03/2022 8:55 AM LATH TIER) Pathologist Signature Component Value Ref Test Method Analysis Performed A t Range Time White Blood Cells 7.44 [facility] RBC 4.81 M/ul [facility] Hemoglobin 11.2 (L) 14.0 - [facility] 17.0 Hematocrit 36.8 (L) 42.0 - [facility] 52.0 MCV 76.5 (L) 80.0 - [facility] 97.0 fl MCH 23.3 (L) 27.0 - [facility] 31.0 pg MCHC 30.4 (L) 32.0 - [facility] 36.0 RDW 19.4 (H) 11.6 - [facility] 14.8 Platelet Count 186 K/ul [facility] Neutrophils 70.1 % [facility] Lymphocytes 14.9 % [facility] Monocytes 12.5 (H) 0.0 - [facility] 12.0 % Eosinophil 1.6 % [facility] Basophil 0.9 [facility] Absolute Neutrophil 5.21 K/ul [facility] INTE RFACE Count Absolute Lymph Count 1.11 [facility] Absolute Monocyte 0.9 K/ul [facility] DIPTI Count Absolute Eosinophil 0.1 K/uL [facility] RFACE Count Absolute Basophil 0.1 K/uL [facility] DIPTI Count Anatomical Location / Laterality Collection Method / Volume Timi ection Time Received Time Specimen (Source) BLOOD / Unknown 06/03/2022 8:55 AM LATH TIER Narrative [facility] - 06/06/2022 12:00 AM LATH TIER Outside Lab Verified by Coral Esparza on 06/06/2022. Maribell Kolb LABORATORY ORDERABLES HAT BLOCKER-WRAPPER HAND City/State/ZIP Code Phone Number Performing Address Organization [facility] * (ABNORMAL) COMPREHENSIVE METABOLIC PANEL (06/03/2022 8:55 AM LATH TIER) Pathologist Signature Component Value Ref Test Method Analysis Performed A t Range Time Sodium 145 mEq/L [facility] Potassium 4.9 mEq/L [facility] Chloride 107 [facility] CO2 30.0 24.0 - [facility] 34.0 Anion Gap 13 6 - 14 [facility] Glucose 118 60 - 125 [facility] mg/dL Creatinine 1.0 [facility] eGFR 85 [facility] Blood Urea Nitrogen 15 5 - 25 [facility] INTE RFACE Calcium 9.4 8.5 - [facility] 10.8 Alk Phosphatase 187 (H) 30 - 115 [facility] INTER[facility]AC E U/L AST (SGOT) 41 (H) 0 - 40 [facility] ALT (SGPT) 30 [facility] Total Bilirubin 1.6 (H) 0.1 - [facility] INTER[facility]AC E 1.4 Albumin 3.8 [facility] Total Protein 6.3 [facility] Anatomical Location / Laterality Collection Method / Volume Timi ection Time Received Time Specimen (Source) BLOOD / Unknown 06/03/2022 8:55 AM LATH TIER Narrative [facility] - 06/06/2022 12:00 AM LATH TIER Outside Lab Verified by Coral Esparza on 06/06/2022. Maribell Kolb LABORATORY ORDERABLES HAT BLOCKER-WRAPPER HAND City/State/ZIP Code Phone Number Performing Address Organization [facility] from Last 3 Months Insurance Type Payer Benefit Subscriber ID Effective Phone Address Plan / Dates Group Medicare MEDICARE RAILROAD MEDICARE [id number] 2019-P [phone] [facility] [address] [facility] [place] [id number] [phone] Care Teams Start Date End Date Merchant Mill Utility Worker Relationship Specialty 06/09/17 Ivonne Casas DO PCP - General Internal [address] [place] [address] 06/09/17 Alfred Chaparro MD [facility] [address] [place] [address] [place] [address] 03/17/20 Jose M Zepeda DO Surgery [address] [place] [address] 06/02/21 Hermelindo Harrison MD [facility] [address] [facility] [address] [place] [address] [place] [id number]
--- OUTSIDE RECORDS SUMMARY | 2022-07-14 18:20 | XMS REPORT | Encounter Summary ---
Author Author [facility] Organization [facility] Address Unknown Phone Unavailable Care Team Providers Care Intranet Specialist Name Role Phone Ivonne Casas DO PCP Alfred Chaparro MD Unavailable Jose M Zepeda DO Unavailable Hermelindo Harrison MD Unavailable Encounter Details Care Team Description Date Type Department Coral Esparza MA Other cirrhosis of liver (HCC); Primary sclerosing cholangitis; Chronic liver disease; Health care maintenance 06/09/2022 Orders Only Hepatology: [facility] [place] [address] [facility] [address], [address] [place] [address] Social History Date Tobacco Use Types Packs/Day Years Used Smoking Tobacco: Former Smokeless Tobacco: Never Comments Alcohol Use Standard Drinks/Week No 0 (1 standard drink = 0.6 o z pure alcohol) Sex Assigned at Date Recorded Male 05/03/2021 8:06 AM CORRUGATOR OPERATOR documented as of this encounter Functional Status Date of Assessment Functional Status Response 08/03/2021 Does the patient have a hearing impairment: No 08/03/2021 Does the patient have a visual impairment: Yes 08/03/2021 Does the patient have impaired ambulation: Yes 08/03/2021 Does the patient have an activity of daily living Ye s (ADL) impairment: 08/03/2021 Does the patient have an instrumental activity of Ye s daily living (IADL) impairment: Date of Assessment Cognitive Status Response 08/03/2021 Does the patient have a cognitive impairment: Yes documented as of this encounter Plan of Treatment Not on filedocumented as of this encounter Procedures Comments Procedure Name Priority Date/Time Associated Diag nosis VITAMIN A Routine 06/03/2022 Other cirrhosis of liver 8:55 AM CORRUGATOR OPERATOR (HCC) Primary sclerosing cholangitis Chronic liver disease Health care maintenance documented in this encounter Results * VITAMIN A (06/03/2022 8:55 AM CORRUGATOR OPERATOR) Pathologist Signature Component Value Ref Test Method Analysis Performed A t Range Time Vitamin A 0.30 [facility] INTERFACE Anatomical Location / Laterality Collection Method / Volume Timi ection Time Received Time Specimen (Source) BLOOD / Unknown 06/03/2022 8:55 AM CORRUGATOR OPERATOR Narrative [facility] INTERFACE - 06/09/2022 12:00 AM CORRUGATOR OPERATOR Outside Lab Verified by Coral Esparza on 06/09/2022. Maribell Kolb LABORATORY ORDERABLES GEOTHERMAL HEAT PUMP MACHINIST-WATCH REPAIRER APPRENTICE City/State/ZIP Code Phone Number Performing Address Organization LABDE INTERFACE documented in this encounter Visit Diagnoses Diagnosis Other cirrhosis of liver (HCC) Primary sclerosing cholangitis Cholangitis Chronic liver disease Unspecified chronic liver disease witho ut mention of alcohol Health care maintenance Unspecified general medical examination documented in this encounter Additional Health Concerns Noted Time Assessment 05/04/2021 3:21 PM CORRUGATOR OPERATOR PHQ-9 Depression Total Score: 21 08/03/2021 2:42 PM CDT PHQ-2 Depression Total Score: 1 documented as of this encounter Care Teams Start Date End Date Intranet Specialist Relationship Specialty 06/09/17 Ivonne Casas DO PCP - General Internal [address] [place] [address] 06/09/17 Alfred Chaparro MD [facility] [address] [place] [address] [id number] 03/17/20 Jose M Zepeda DO Surgery [address] [place] [address] 06/02/21 Hermelindo Harrison MD [facility] 100 [facility] [address] [place] [address] [phone] documented as of this encounter
--- OUTSIDE RECORDS SUMMARY | 2022-07-14 18:20 | XMS REPORT | Encounter Summary ---
Author Author [facility] Organization [facility] Address Unknown Phone Unavailable Care Team Providers Care Manager Orange Name Role Phone Ivonne Casas DO PCP Alfred Chaparro MD Unavailable Jose M Zepeda DO Unavailable Hermelindo Harrison MD Unavailable Encounter Details Care Team Description Date Type Department Maribell Kolb, GAMING CAGE WORKER-REAL ESTATE REPRESENTATIVE [address] [facility] [address] [place] [address] 05/25/2022 Documentation Hepatology: [facility] [place] [address] [facility] [address], [address] [place] [address] Social History Date Tobacco Use Types Packs/Day Years Used Smoking Tobacco: Former Smokeless Tobacco: Never Comments Alcohol Use Standard Drinks/Week No 0 (1 standard drink = 0.6 o z pure alcohol) Sex Assigned at Date Recorded Male 05/03/2021 8:06 AM TRANSFER IRON OPERATOR documented as of this encounter Functional [...] impairment: Yes documented as of this encounter Progress Notes * Kelley Black, RN - 05/25/2022 12:42 PM CST Faxed [facility] scheduling [phone], [phone]. Imaging due Jun . Request facility contact pt. SFER IRON OPERATOR documented in this encounter Plan of Treatment Not on filedocumented as of this encounter Visit Diagnoses Not on filedocumented in this encounter Additional Health Concerns Noted Time Assessment 05/04/2021 3:21 PM TRANSFER IRON OPERATOR PHQ-9 Depression Total Score: 21 08/03/2021 2:42 PM CDT PHQ-2 Depression Total Score: 1 documented as of this encounter Care Teams Start Date End Date Manager Orange Relationship Specialty 06/09/17 Ivonne Casas DO PCP - General Internal [address] [place] [address] 06/09/17 Alfred Chaparro MD [facility] [address] [facility] [address] [id number] 03/17/20 Jose M Zepeda DO Surgery [address] [place], [place] [address] 06/02/21 Hermelindo Harrison MD [facility] 100 [facility] [address] [phone] documented as of this encounter
--- OUTSIDE RECORDS SUMMARY | 2022-07-14 18:20 | XMS REPORT | Encounter Summary ---
Author Author [facility] Organization [facility] Address Unknown Phone Unavailable Care Team Providers Care Foster Winder Name Role Phone Ivonne Casas DO PCP Alfred Chaparro MD Unavailable Jose M Zepeda DO Unavailable Hermelindo Harrison MD Unavailable Encounter Details Care Team Description Date Type Department Kelley Black RN Primary sclerosing cholangitis; Other cirrhosis of liver (HCC) 06/09/2022 Orders Only Transplant: [facility] [place] [address] [facility] [address], [address] [place] [address] Social History Date Tobacco Use Types Packs/Day Years Used Smoking Tobacco: Former Smokeless Tobacco: Never Comments Alcohol Use Standard Drinks/Week No 0 (1 standard drink = 0.6 o z pure alcohol) Sex Assigned at Date Recorded Male 05/03/2021 8:06 AM GOSPEL WORKER documented as of this encounter Functional Status [...] Routine 06/03/2022 Primary sc lerosing 10:44 AM GOSPEL WORKER cholangitis Other cirrhosis of liver (HCC) documented in this encounter Results * US ABDOMEN COMPLETE (06/03/2022 10:44 AM GOSPEL WORKER) Modality Anatomical Region Laterality Other Abdomen Maribell Kolb US ORDERABLES TEACHER EMOTIONALLY IMPAIRED-STRIP PRESSER documented in this encounter Visit Diagnoses Diagnosis Primary sclerosing cholangitis Cholangitis Other cirrhosis of liver (HCC) documented in this encounter Additional Health Concerns Noted Time Assessment 05/04/2021 3:21 PM GOSPEL WORKER PHQ-9 Depression Total Score: 21 08/03/2021 2:42 PM CDT PHQ-2 Depression Total Score: 1 documented as of this encounter Care Teams Start Date End Date Foster Winder Relationship Specialty 06/09/17 Ivonne Casas DO PCP - General Internal [place] [address] 06/09/17 Alfred Chaparro MD [facility] [address] [facility] [place] [address] [place] [address] 03/17/20 Jose M Zepeda DO Surgery [address] [place] [address] 06/02/21 Hermelindo Harrison MD [facility] 100 [facility] [address] [place] [address] [phone] documented as of this encounter
--- OUTSIDE RECORDS SUMMARY | 2022-07-14 18:20 | XMS REPORT | Encounter Summary ---
Author Author [facility] Organization [facility] Address Unknown Phone Unavailable Care Team Providers Care Scheduler Conveyor Name Role Phone Ivonne Casas DO PCP Alfred Chaparro MD Unavailable Jose M Zepeda DO Unavailable Hermelindo Harrison MD Unavailable Reason for Visit * Reason Onset Date Comments Other 06/16/2022 Babs BANKS Encounter Details Care Team Description Date Type Department Maribell Kolb, CAMP NURSE-ENTRY LEVEL MANAGEMENT [address] [facility] [address] [place] [address] Other (Babs BANKS) 06/16/2022 Telephone Hepatology: [facility] [place] [address] [facility] [address], [address] [place] [address] Social History Date Tobacco Use Types Packs/Day Years Used Smoking Tobacco: Former Smokeless Tobacco: Never Comments Alcohol Use Standard Drinks/Week No 0 (1 standard drink = 0.6 o z pure alcohol) Sex Assigned at Date Recorded Male 05/03/2021 8:06 AM STUDIO ASSOCIATE documented as of this encounter Functional Status [...] impairment: Yes documented as of this encounter Miscellaneous Notes * Telephone Encounter - Kelley Black RN - 06/16/2022 3:08 PM CST Xifaxan application sent to [facility] for processing. Awaiting response. IO ASSOCIATE documented in this encounter Plan of Treatment Not on filedocumented as of this encounter Visit Diagnoses Not on filedocumented in this encounter Additional Health Concerns Noted Time Assessment 05/04/2021 3:21 PM STUDIO ASSOCIATE PHQ-9 Depression Total Score: 21 08/03/2021 2:42 PM CDT PHQ-2 Depression Total Score: 1 documented as of this encounter Care Teams Start Date End Date Scheduler Conveyor Relationship Specialty 06/09/17 Ivonne Casas DO PCP - General Internal [address] [place] [address] 06/09/17 Alfred Chaparro MD [facility] [address] [facility] [address] [address] 03/17/20 Jose M Zepeda DO Surgery [address] [place] [address] 06/02/21 Hermelindo Harrison MD [facility] 100 [facility] [address] [phone] documented as of this encounter
--- OUTSIDE RECORDS SUMMARY | 2022-07-14 18:20 | XMS REPORT | Encounter Summary ---
Author Author [facility] Organization [facility] Address Unknown Phone Unavailable Care Team Providers Care Vulcanizer Rubber Plate Name Role Phone Ivonne Casas DO PCP Alfred Chaparro MD Unavailable Jose M Zepeda DO Unavailable Hermelindo Harrison MD Unavailable Encounter Details Care Team Description Date Type Department Self, Racquel Other cirrhosis of liver (HCC); Primary sclerosing cholangitis; Chronic liver disease; Health care maintenance 06/07/2022 Orders Only Transplant: [facility] [place] [address] [facility] [address], [address] [place] [address] Social History Date Tobacco Use Types Packs/Day Years Used Smoking Tobacco: Former Smokeless Tobacco: Never Comments Alcohol Use Standard Drinks/Week No 0 (1 standard drink = 0.6 o z pure alcohol) Sex Assigned at Date Recorded Male 05/03/2021 8:06 AM CUSTOMER 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 documented as of this encounter Functional Status [...] Procedure Name Priority Date/Time Associated Diag nosis ALPHA FETO PROTEIN (AFP) Routine 06/03/2022 Other cirrhosis of liver 8:55 AM CUSTOMER SERVICE CLERK (HCC) Primary sclerosing cholangitis Chronic liver disease Health care maintenance documented in this encounter Results * ALPHA FETO PROTEIN (AFP) (06/03/2022 8:55 AM CUSTOMER SERVICE CLERK) Pathologist Signature Component Value Ref Test Method Analysis Performed A t Range Time Alpha Feto Protein 5.2 0.0 - LAB[facility] INTER FACE 9.03 Anatomical Location / Laterality Collection Method / Volume Timi ection Time Received Time Specimen (Source) BLOOD / Unknown 06/03/2022 8:55 AM CUSTOMER SERVICE CLERK Narrative LAB[facility] INTERFACE - 06/07/2022 12:00 AM CUSTOMER SERVICE CLERK Outside Lab Verified by Racquel rAreola on 06/07/2022. Maribell Kolb LABORATORY ORDERABLES ENVIRONMENTAL PROTECTION ECONOMIST-[employer] SOLUTIONS SALES CONSULTANT City/State/ZIP Code Phone Number Performing Address Organization LABDE INTERFACE documented in this encounter Visit Diagnoses Diagnosis Other cirrhosis of liver (HCC) Primary sclerosing cholangitis Cholangitis Chronic liver disease Unspecified chronic liver disease witho ut mention of alcohol Health care maintenance Unspecified general medical examination documented in this encounter Additional Health Concerns Noted Time Assessment 05/04/2021 3:21 PM CUSTOMER SERVICE CLERK PHQ-9 Depression Total Score: 21 08/03/2021 2:42 PM CDT PHQ-2 Depression Total Score: 1 documented as of this encounter Care Teams Start Date End Date Vulcanizer Rubber Plate Relationship Specialty 06/09/17 Ivonne Casas DO PCP - General Internal [address] [place] [address] 06/09/17 Alfred Chaparro MD [facility] [address] [place] [address] [address] 03/17/20 Jose M Zepeda DO Surgery [address] [place], [place] [phone] 06/02/21 Hermelindo Harrison MD [facility] 100 [facility] [address] [place] [address] [phone] documented as of this encounter
--- OUTSIDE RECORDS SUMMARY | 2022-07-14 18:20 | XMS REPORT | Encounter Summary ---
Author Author [facility] Organization [facility] Address Unknown Phone Unavailable Care Team Providers Care Teacher Music Name Role Phone Ivonne Casas DO PCP Alfred Chaparro MD Unavailable Jose M Zepeda DO Unavailable Hermelindo Harrison MD Unavailable Encounter Details Care Team Description Date Type Department Coral Esparza MA Other cirrhosis of liver (HCC); Primary sclerosing cholangitis; Chronic liver disease; Health care maintenance; Vitamin D deficiency 06/06/2022 Orders Only Hepatology: [facility] [place] [address] [facility] [address], [address] [place] [address] Social History Date Tobacco Use Types Packs/Day Years Used Smoking Tobacco: Former Smokeless Tobacco: Never Comments Alcohol Use Standard Drinks/Week No 0 (1 standard drink = 0.6 o z pure alcohol) Sex Assigned at Date Recorded Male 05/03/2021 8:06 AM QUALITY ASSURANCE/R&D LAB TECHNICIAN documented as of this encounter Functional Status [...] Procedure Name Priority Date/Time Associated Diag nosis 25-OH VITAMIN D (D2 + D3) Routine 06/03/2022 Othe r cirrhosis of liver 8:55 AM QUALITY ASSURANCE/R&D LAB TECHNICIAN (HCC) Primary sclerosing cholangitis Chronic liver disease Health care maintenance Vitamin D deficiency PROTIME INR (PT) Routine 06/03/2022 Other cirrhos is of liver 8:55 AM QUALITY ASSURANCE/R&D LAB TECHNICIAN (HCC) Primary sclerosing cholangitis Chronic liver disease Health care maintenance CBC AND DIFF Routine 06/03/2022 Other cirrhosis of liver 8:55 AM QUALITY ASSURANCE/R&D LAB TECHNICIAN (HCC) Primary sclerosing cholangitis Chronic liver disease Health care maintenance COMPREHENSIVE METABOLIC Routine 06/03/2022 Other cirrhosis of liver PANEL 8:55 AM QUALITY ASSURANCE/R&D LAB TECHNICIAN (HCC) Primary sclerosing cholangitis Chronic liver disease Health care maintenance documented in this encounter Results * (ABNORMAL) CBC AND DIFF (06/03/2022 8:55 AM QUALITY ASSURANCE/R&D LAB TECHNICIAN) Pathologist Signature Component Value Ref Test Method [...] (Source) BLOOD / Unknown 06/03/2022 8:55 AM QUALITY ASSURANCE/R&D LAB TECHNICIAN Narrative LABDE INTERFACE - 06/06/2022 12:00 AM QUALITY ASSURANCE/R&D LAB TECHNICIAN Outside Lab Verified by Coral Esparza on 06/06/2022. Maribell Kolb LABORATORY ORDERABLES PIN PULLER[employer] [facility]/State/ZIP Code Phone Number Performing Address Organization LABDE INTERFACE * (ABNORMAL) COMPREHENSIVE METABOLIC PANEL (06/03/2022 8:55 AM QUALITY ASSURANCE/R&D LAB TECHNICIAN) Pathologist Signature Component Value Ref Test Method [...] (Source) BLOOD / Unknown 06/03/2022 8:55 AM QUALITY ASSURANCE/R&D LAB TECHNICIAN Narrative LABDE INTERFACE - 06/06/2022 12:00 AM QUALITY ASSURANCE/R&D LAB TECHNICIAN Outside Lab Verified by Coral Esparza on 06/06/2022. Maribell Kolb LABORATORY ORDERABLES PIN [employer] City/State/ZIP Code Phone Number Performing Address Organization LABDE INTERFACE * 25-OH VITAMIN D (D2 + D3) (06/03/2022 8:55 AM QUALITY ASSURANCE/R&D LAB TECHNICIAN) Pathologist Signature Component Value Ref Test Method Analysis Performed A t Range Time Vitamin 53.85 LAB[facility] INTERFACE D(25-OH)Total Anatomical Location / Laterality Collection Method / Volume Timi ection Time Received Time Specimen (Source) BLOOD / Unknown 06/03/2022 8:55 AM QUALITY ASSURANCE/R&D LAB TECHNICIAN Narrative LABDE INTERFACE - 06/06/2022 12:00 AM QUALITY ASSURANCE/R&D LAB TECHNICIAN Outside Lab Verified by Coral Esparza on 06/06/2022. Maribell Kolb LABORATORY ORDERABLES [employer] City/State/ZIP Code Phone Number Performing Address Organization LABDE INTERFACE * (ABNORMAL) PROTIME INR (PT) (06/03/2022 8:55 AM QUALITY ASSURANCE/R&D LAB TECHNICIAN) Pathologist Signature Component Value Ref Test Method Analysis Performed A t Range Time INR 2.1 (H) 0.9 - LAB[facility] INTERFACE 1.1 Protime 22.1 (H) 11.3 - LAB[facility] INTERFACE 14.1 Anatomical Location / Laterality Collection Method / Volume Timi ection Time Received Time Specimen (Source) BLOOD / Unknown 06/03/2022 8:55 AM QUALITY ASSURANCE/R&D LAB TECHNICIAN Narrative LABDE INTERFACE - 06/06/2022 12:00 AM QUALITY ASSURANCE/R&D LAB TECHNICIAN Outside Lab Verified by Coral Esparza on 06/06/2022. Maribell Jose Kolb LABORATORY ORDERABLES [employer] City/State/ZIP Code Phone Number Performing Address Organization LABDE INTERFACE documented in this encounter Visit Diagnoses Diagnosis Other cirrhosis of liver (HCC) Primary sclerosing cholangitis Cholangitis Chronic liver disease Unspecified chronic liver disease witho ut mention of alcohol Health care maintenance Unspecified general medical examination Vitamin D deficiency Unspecified vitamin D deficiency documented in this encounter Additional Health Concerns Noted Time Assessment 05/04/2021 3:21 PM QUALITY ASSURANCE/R&D LAB TECHNICIAN PHQ-9 Depression Total Score: 21 08/03/2021 2:42 PM CDT PHQ-2 Depression Total Score: 1 documented as of this encounter Care Teams Start Date End Date Teacher Music Relationship Specialty 06/09/17 Ivonne Casas DO PCP - General Internal [address] [place], [place] [id number] 06/09/17 Alfred Chaparro MD [facility] [address] [place] [address] [address] 03/17/20 Jose M Zepeda DO Surgery [address] [place], [place] [phone] 06/02/21 Hermelindo Harrison MD [facility] 100 [facility] [address] [place] [address] [phone] documented as of this encounter
--- OUTSIDE RECORDS SUMMARY | 2022-07-14 18:20 | XMS REPORT | Encounter Summary ---
Author Author [facility] Organization [facility] Address Unknown Phone Unavailable Care Team Providers Care Jewish Thought Professor Name Role Phone Ivonne Casas DO PCP Alfred Chaparro MD Unavailable Jose M Zepeda DO Unavailable Hermelindo Harrison MD Unavailable Reason for Referral * Radiology Services (Routine) - New Request Diagnoses / Procedures [facility]erred [facility] Other cirrhosis of liver (HCC) Primary sclerosing cholangitis Chronic liver disease Health care maintenance Encounter for observation for other suspected diseases and conditions ruled out Procedures MRI ABD/MRCP WO/W Maribell Kolb APRN-NP [address] [address] Radiology Referral ID Status Reason Start Date Expiration Visits Vi sits Date Requested Authorized [id number] New Request 06/14/2022 06/14/2023 1 1 SORS SHARPENER Reason for Visit * Reason Comments PSC Encounter Details Care Team Description Date Type Department Zoila Chatterjee MD [address] [place] [address] Maribell Kolb APRN-NP [address] [phone] Other cirrhosis of liver (HCC) (Primary Dx); Primary sclerosing cholangitis; Chronic liver disease; Health care maintenance; Encounter for observation for other suspected diseases and conditions ruled out; Portal hypertension (HCC) 06/14/2022 Office Visit Hepatology: Jazmín flowers Telehealth [place] [address] [facility]. [address] 1, [address] [place] [address] Social History Date Tobacco Use Types Packs/Day Years Used Smoking Tobacco: Former Smokeless Tobacco: Never Comments Alcohol Use Standard Drinks/Week No 0 (1 standard drink = 0.6 o z pure alcohol) Sex Assigned at Date Recorded Male 05/03/2021 8:06 AM SCISSORS SHARPENER documented as of this encounter Functional Status [...] as of this encounter Progress Notes * Maribell Kolb, PROGRAMS ASSISTANT-ASSOCIATE ACCOUNT EXECUTIVE - 06/14/2022 12:00 PM CST Date of Service: 06/14/2022 Librado Alvarez is a 57 y.o. male. Obtained patient's verbal consent to treat them and their agreement to [facility] policy and NPP via this telehealth visit during the Coronavirus Public He alth Emergency Subjective: Chief Complaint/Purpose of Visit: patient with chronic liver disease secondary t o primary sclerosing cholangitis, History of Present Illness Mr. Alvarez is a very pleasant 57-year-old male who is followed in our office for managementofprimary sclerosing cholangitis with advanced fibrosis.He also has ulcerative colitis.I last saw him 6 months ago. He was in contact with our office recently, requesting sooner follow up given some changes in his labs. Mr. Alvarez is doing okay today. 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 He has since been started on Xarelto and had an IVC filter placed. He denies any other changes to his health. He does remain on diuretics for management of his lower extremity edema. There have been no r ecent issues with ascites. Updated MELD is 17, but this is driven by INR in the setting of anticoagulation. No recent issues with cholangitis. He did have a UC flare last year. Mr. Alvarez does have history of hepatic encephalopathy- takes lactulose PRN, also Rifaximin BID. Mr. Awans accompanied today by Bandar-- [facility] actually is [facility], recovering from recent surgery. PCP is Dr Casas. GI is Dr. Harrison. Librado Alvarez endorses no other worrisome health concerns at today's visit. Review of Systems: A 10 point review systems is performed and with the exception s noted in the HPI are otherwise unremarkable. Objective: amLODIPine (NORVASC) 5 mg tablet Take 5 mg by mouth daily. bisoprolol (ZEBETA) 10 mg tablet Take 10 mg by mouth daily. citalopram hydrobromide (CELEXA PO) Take 40 mg by mouth daily. ergocalciferol (vitamin D2) (VITAMIN D2) 1,250 mcg (50,000 unit) capsule Rafita e one capsule by mouth every 7 days. furosemide (LASIX) 40 mg tablet Take 40 mg by mouth every morning. magnesium oxide 400 mg cap Take 400 mg by mouth twice daily. omeprazole DR(+) (PRILOSEC) 40 mg capsule Take 40 mg by mouth daily before b reakfast. potassium chloride SR (K-DUR) 10 mEq tablet Take 10 mEq by mouth daily. Take with a meal and a full glass of water. predniSONE (DELTASONE) 2.5 mg tablet Take 2.5 mg by mouth daily. rifAXIMin (XIFAXAN) 550 mg tablet Take one tablet by mouth every 12 hours. spironolactone (ALDACTONE) 25 mg tablet Take 50 mg by mouth twice daily. Rafita e with food. sulfaSALAzine (AZULFIDINE) 500 mg tablet Take 500 mg by mouth daily. 5 pills once daily vitamin A 10,000 unit capsule Take one capsule by mouth daily. Indications: a low amount of vitamin A in the body (Patient taking differently: Take 3,000 Un its by mouth daily. Indications: a low amount of vitamin A in the body) Telehealth Patient Reported Vitals Row Name 06/14/22 1154 Weight: 110.2 kg (243 lb) Pain Score: Zero Limited Observational Exam Constitutional:No acute distress, pleasant and conversant. Pulmonary/Chest: Effort normal . Neurological:He is alert and oriented to person, place, and time. Skin:Normal color for race Assessment and Plan 1. Cirrhotic stage liver disease, likely secondary to primary sclerosing chola ngitis:MELD is 17 (8 at last visit).Mr. Alvarez's change in MELD score is driv en by his anticoagulation therapy for PE. Given this, I recommend we continue wi th current plan of care, transplant evaluation not indicated at this time. Overall, he appears to be doing a little bit better, coping with his chronic dis ease, symptoms reasonably controlled-- previously he suffered from significant f atigue and weakness. We will continue with regular clinic follow up in order to best manage his sympt oms, monitor for signs of disease progression, and ensure he stays up to date on recommended screening tests. 2. Hepatic encephalopathy:Continue lactulose andrifaximin.Patient unders tands our recommendation that he not drive with this diagnosis. 3. Screening for hepatobiliary malignancy:He is currently up to date.We wi ll continue to alternate between MRI and ultrasound for screening.MRI/MRCP teresa l be due in November 2022. AFP is WNL this month CA 19.9- will obtain with next set of labs 4. Screening for esophageal varices:Managed by Dr. Harrison-- EGD in May 2--grade I EV reported. MD plans to repeat EGD in the coming months. 5. Incidental finding of small aortic dissection:This has been reviewed by Renee Chatterjee and Dr. Jeronimo--no immediate intervention is warranted, we will continue to monitor on his imaging for HCC screening. 6. Edema:Continue 40 mg daily Furosemide and 50 mg BID Spironolactone. We appr eciate Dr Casas's assistance with diuretic management. No recent issues with ascites. Limit dietary sodium intake to 2g/day. At the end of the visit, Librado Alvarez had all of his questions answered. He has our contact information and is encouraged to call with any new questions or concerns. I would like to see the patient back for follow up in 6 months with his new bead stringer. SORS SHARPENER * Ac Eastman MA - 06/14/2022 12:00 PM CST The patient reviewed the three documents sent via [employer], agrees with the infor mation and provided verbal consent for this visit. SORS SHARPENER documented in this encounter Miscellaneous Notes * Patient Instructions - Kelley Black RN - 06/14/2022 12:00 PM CST Senior Analyst Programmer Please: Follow up TBD Things discussed at today's visit: Your MELD has gone up in response to being on the blood thinner. In this situati on, the elevated MELD is likely not a sign of liver disease progression. A MELD of 17 is not high enough to get an organ offer. A transplant evaluate is not warranted at this time. No worrisome findings noted on ultrasound. The clot in your liver is not concern ing at this time. We will continue to monitor on future imaging. If you have any outside procedures or labs, please call our office and let us kn ow so we can request these records. Please call the office at [phone] if you have any questions or concerns. PARRISH Sewell MD Morgan Rowe, RN Tina Blackmore, RN Back office Aug appt with JEVON Monroe same day SORS SHARPENER documented in this encounter Plan of Treatment Order Schedule Name Type Priority Associated Diag noses Expected: 11/29/2022 (Approximate), Expi res: 06/14/2023 MRI ABD/MRCP WO/W Imaging Routine Other cirrho sis of liver (HCC) Primary sclerosing cholangitis Chronic liver disease Health care maintenance Encounter for observation for other suspected diseases and conditions ruled out documented as of this encounter Visit Diagnoses Diagnosis Other cirrhosis of liver (HCC) - Primar y Primary sclerosing cholangitis Cholangitis Chronic liver disease Unspecified chronic liver disease witho ut mention of alcohol Health care maintenance Unspecified general medical examination Encounter for observation for other sugar pected diseases and conditions ruled out Portal hypertension (HCC) Portal hypertension documented in this encounter Historical Medications * This list may reflect changes made after this encounter. Start Date End Date Medication Sig Dispensed Refills rivaroxaban (XARELTO PO) Take by 0 mouth. added in this encounter Additional Health Concerns Noted Time Assessment 05/04/2021 3:21 PM SCISSORS SHARPENER PHQ-9 Depression Total Score: 21 08/03/2021 2:42 PM CDT PHQ-2 Depression Total Score: 1 documented as of this encounter Care Teams Start Date End Date Jewish Thought Professor Relationship Specialty 06/09/17 Ivonne Casas DO PCP - General Internal [address] [place] [address] 06/09/17 Alfred Chaparro MD [facility] [address] [place] [address] [place] [address] 03/17/20 Jose M Zepeda DO Surgery [address] [place], [place] [address] 06/02/21 Hermelindo Harrison MD [facility] [address] [facility] [address] [place] [address] [place] [id number] documented as of this encounter
--- OUTSIDE RECORDS SUMMARY | 2022-07-14 18:20 | XMS REPORT | Encounter Summary ---
Author Author [facility] Organization [facility] Address Unknown Phone Unavailable Care Team Providers Care Bumboater Name Role Phone Ivonne Casas DO PCP Alfred Chaparro MD Unavailable Jose M Zepeda DO Unavailable Hermelindo Harrison MD Unavailable Encounter Details Care Team Description Date Type Department Maribell Kolb, [facility] [address] [facility] [address] [place] [address] Other cirrhosis of liver (HCC) (Primary Dx); Primary sclerosing cholangitis; Chronic liver disease; Health care maintenance; Vitamin D deficiency 05/25/2022 Orders Only Hepatology: Jazmín flowers [place] [address] [facility] [address] [place] [address] Social History Date Tobacco Use Types Packs/Day Years Used Smoking Tobacco: Former Smokeless Tobacco: Never Comments Alcohol Use Standard Drinks/Week No 0 (1 standard drink = 0.6 o z pure alcohol) Sex Assigned at Date Recorded Male 05/03/2021 8:06 AM CUSTOMER CARE SPECIALIST documented as of this encounter Functional Status [...] Not on filedocumented as of this encounter Results * VITAMIN A (06/03/2022 8:55 AM CUSTOMER CARE SPECIALIST) Pathologist Signature Component Value Ref Test Method Analysis Performed A t Range Time Vitamin A 0.30 LAB[facility] INTERFACE Anatomical Location / Laterality Collection Method / Volume Timi ection Time Received Time Specimen (Source) BLOOD / Unknown 06/03/2022 8:55 AM CUSTOMER CARE SPECIALIST Narrative LABDE INTERFACE - 06/09/2022 12:00 AM CUSTOMER CARE SPECIALIST Outside Lab Verified by Coral Esparza on 06/09/2022. Maribell Kolb LABORATORY ORDERABLES [facility] City/State/ZIP Code Phone Number Performing Address Organization LABDE INTERFACE * 25-[place] VITAMIN D (D2 + D3) (06/03/2022 8:55 AM CUSTOMER CARE SPECIALIST) Pathologist Signature Component Value Ref Test Method Analysis Performed A t Range Time Vitamin 53.85 LAB[facility] INTERFACE D(25-[place])Total Anatomical Location / Laterality Collection Method / Volume Timi ection Time Received Time Specimen (Source) BLOOD / Unknown 06/03/2022 8:55 AM CUSTOMER CARE SPECIALIST Narrative LABDE INTERFACE - 06/06/2022 12:00 AM CUSTOMER CARE SPECIALIST Outside Lab Verified by Coral Esparza on 06/06/2022. Maribell Kolb LABORATORY ORDERABLES [facility] City/State/ZIP Code Phone Number Performing Address Organization LABDE INTERFACE * (ABNORMAL) CBC AND DIFF (06/03/2022 8:55 AM CUSTOMER CARE SPECIALIST) Pathologist Signature Component Value Ref Test Method [...] BLOOD / Unknown 06/03/2022 8:55 AM CUSTOMER CARE SPECIALIST Narrative LABDE INTERFACE - 06/06/2022 12:00 AM CUSTOMER CARE SPECIALIST Outside Lab Verified by Coral Esparza on 06/06/2022. Maribell Kolb [facility]ATORY [facility]ABLES [facility]/ZIP Code Phone Number Performing Address Organization LABDE INTERFACE * (ABNORMAL) PROTIME INR (PT) (06/03/2022 8:55 AM CUSTOMER CARE SPECIALIST) Pathologist Signature Component Value Ref Test Method Analysis Performed A t Range Time INR 2.1 (H) 0.9 - LABDE INTERFACE 1.1 Protime 22.1 (H) 11.3 - LABDE INTERFACE 14.1 Anatomical Location / Laterality Collection Method / Volume Timi ection Time Received Time Specimen (Source) BLOOD / Unknown 06/03/2022 8:55 AM CUSTOMER CARE SPECIALIST Narrative LABDE INTERFACE - 06/06/2022 12:00 AM CUSTOMER CARE SPECIALIST Outside Lab Verified by Coral Esparza on 06/06/2022. Maribell Kolb LABORATORY ORDERABLES [facility]/State/ZIP Code Phone Number Performing Address Organization LABDE INTERFACE * (ABNORMAL) COMPREHENSIVE METABOLIC PANEL (06/03/2022 8:55 AM CUSTOMER CARE SPECIALIST) Pathologist Signature Component Value Ref Test Method [...] BLOOD / Unknown 06/03/2022 8:55 AM CUSTOMER CARE SPECIALIST Narrative LABDE INTERFACE - 06/06/2022 12:00 AM CUSTOMER CARE SPECIALIST Outside Lab Verified by Coral Esparza on 06/06/2022. Maribell Kolb LABORATORY ORDERABLES [facility] City/State/ZIP Code Phone Number Performing Address Organization LABDE INTERFACE * ALPHA FETO PROTEIN (AFP) (06/03/2022 8:55 AM CUSTOMER CARE SPECIALIST) Pathologist Signature Component Value Ref Test Method Analysis Performed A t Range Time Alpha Feto Protein 5.2 0.0 - LABDE INTER FACE 9.03 Anatomical Location / Laterality Collection Method / Volume Timi ection Time Received Time Specimen (Source) BLOOD / Unknown 06/03/2022 8:55 AM CUSTOMER CARE SPECIALIST Narrative LABDE INTERFACE - 06/07/2022 12:00 AM CUSTOMER CARE SPECIALIST Outside Lab Verified by Racquel Arreola on 06/07/2022. Maribell Kolb LABORATORY ORDERABLES [facility] City/State/ZIP Code Phone Number Performing Address Organization LABDE INTERFACE documented in this encounter Visit Diagnoses Diagnosis Other cirrhosis of liver (HCC) - Primar y Primary sclerosing cholangitis Cholangitis Chronic liver disease Unspecified chronic liver disease witho ut mention of alcohol Health care maintenance Unspecified general medical examination Vitamin D deficiency Unspecified vitamin D deficiency Other cirrhosis of liver (HCC) Primary sclerosing cholangitis Cholangitis Chronic liver disease Unspecified chronic liver disease witho ut mention of alcohol Health care maintenance Unspecified general medical examination Vitamin D deficiency Unspecified vitamin D deficiency Other cirrhosis of liver (HCC) Primary sclerosing cholangitis Cholangitis Chronic liver disease Unspecified chronic liver disease witho ut mention of alcohol Health care maintenance Unspecified general medical examination Other cirrhosis of liver (HCC) Primary sclerosing cholangitis Cholangitis Chronic liver disease Unspecified chronic liver disease witho ut mention of alcohol Health care maintenance Unspecified general medical examination documented in this encounter Additional Health Concerns Noted Time Assessment 05/04/2021 3:21 PM CUSTOMER CARE SPECIALIST PHQ-9 Depression Total Score: 21 08/03/2021 2:42 PM CDT PHQ-2 Depression Total Score: 1 documented as of this encounter Care Teams Start Date End Date Bumboater Relationship Specialty 06/09/17 Ivonne Casas DO PCP - General Internal [address] [place] [address] 06/09/17 Alfred Chaparro MD [facility] [address] [facility] [address] [place] [address] 03/17/20 Jose M Zepeda DO Surgery [address] [place], [place] [address] 06/02/21 Hermelindo Harrison MD [facility] [address] [facility] [address] [place] [address] [place] [id number] documented as of this encounter
--- OUTSIDE RECORDS SUMMARY | 2022-07-14 18:20 | XMS REPORT ---
Author Author [facility] Organization [facility] Address Unknown Phone Unavailable Care Team Providers Care Meter Engineer Name Role Phone Ivonne Casas Gaby DO PCP Alfred Chaparro MD Unavailable Jose M Zepeda DO Unavailable Hermelindo Harrison MD Unavailable Transplant Episode Liver Candidate [facility] ([place], [place]) - [facility] Referred on 01/11/2021 Marked as Deferred on 01/22/2021 Reason: LTC -Too well Liver CoordinatorMopriya Mcneil RN Email: N/A Expires Exceptions/Reasons Score Value Updated CPRA Not available UNOS MELD Not available MELD (Calc) 8 12/02/2021 Fax Email Name Role N/A Uday Mcneil RN Liver Coordinator [phone] [email or web address] Maribell Kolb, Nurse Practitioner [phone] MIXER OPERATOR HELPER HOT METAL-SEARCHLIGHT OPERATOR [phone] [email or web address] Wade Duarte MD Die Stamper [phone] Pre-Transplant Referred: 01/11/2021
[2022-07-14 18:45] VITALS: BP 140/61
[2022-07-14 18:55] VITALS: BP 137/65
[2022-07-14 18:56] LABS: BASOPHILS % (AUTO) 1 % (0-10)
[2022-07-14 18:58] LABS: EOSINOPHILS % (AUTO) 1 % (0-10); HEMATOCRIT 31 % (40-54); HEMOGLOBIN 9.9 g/dL (13.3-17.7); LYMPHOCYTES # (AUTO) 0.6 10^3/uL (1.0-4.0); LYMPHOCYTES % (AUTO) 17 % (12-44); MEAN CORPUSCULAR HEMOGLOBIN 23 pg (25-34); MEAN CORPUSCULAR HGB CONC 32 g/dL (32-36); MEAN CORPUSCULAR VOLUME 73 fL (80-99); MONOCYTES # (AUTO) 0.7 10^3/uL (0.0-1.0); MONOCYTES % (AUTO) 18 % (0-12); NEUTROPHILS # (AUTO) 2.1 10^3/uL (1.8-7.8); NEUTROPHILS % (AUTO) 58 % (42-75); PLATELET COUNT 108 10^3/uL (130-400); WHITE BLOOD COUNT 3.6 10^3/uL (4.3-11.0)
[2022-07-14] MEDS ORDERED: PIPERACILLIN SODIUM/TAZOBACTAM 4.5 GM in NS (IVPB) 100 ML IV NR (19:00)
[2022-07-14 19:08] LABS: ALBUMIN 2.7 GM/DL (3.2-4.5); POTASSIUM 3.1 MMOL/L (3.6-5.0)
[2022-07-14 19:09] LABS: CALCIUM 6.9 MG/DL (8.5-10.1)
[2022-07-14 19:12] LABS: BILIRUBIN,TOTAL 1.4 MG/DL (0.1-1.0)
[2022-07-14 19:14] LABS: CREATININE SERUM 0.85 MG/DL (0.60-1.30)
[2022-07-14 19:18] LABS: INR 1.3 (0.8-1.4); PROTHROMBIN TIME PATIENT 16.2 SEC (12.2-14.7)
[2022-07-14 19:23] LABS: ERYTHROCYTE SEDIMENTATION RATE 16 MM/HR (0-30)
[2022-07-14 19:36] LABS: ANISOCYTOSIS SLIGHT; BAND NEUTROPHILS 1 %; HYPOCHROMASIA SLIGHT; LYMPHOCYTES % (MANUAL) 21 %; MONOCYTES % (MANUAL) 13 %; NEUTROPHILS % (MANUAL) 65 %; POIKILOCYTOSIS SLIGHT
[2022-07-14] MEDS ORDERED: NS 100 ML (IVPB) BAG IV ONE (19:45)
[2022-07-14] MEDS ORDERED: IOHEXOL 350 MG/ML 100 ML (OMNIPAQUE 350) VIAL IV ONE (19:45)
--- NOTE | 2022-07-14 20:13 | Diagnostic Imaging Report ---
CHEST 1 VIEW, AP/PA ONLY Indication: Chest pain. Comparison: 07/06/2022 Findings: No focal airspace disease in the visualized lungs. No pleural effusion or pneumothorax. Normal cardiomediastinal silhouette. Impression: 1. No acute cardiopulmonary process by portable radiography. Dictated by: Dictated on workstation # [id number]
[2022-07-14] MEDS: SENNOSIDES 8.6 MG (SENOKOT) TAB PO SCH (20:17)
[2022-07-14] MEDS: DOCUSATE SODIUM 100 MG (COLACE) CAP PO SCH (20:17)
--- NOTE | 2022-07-14 20:21 | Diagnostic Imaging Report ---
CT ABDOMEN/PELVIS W TECHNIQUE: Multiple contiguous axial images were obtained through the abdomen and pelvis after administration of intravenous contrast. All CT scans use one or more of the following dose optimizing techniques: automated exposure control, MA and/or KvP adjustment based on patient size and exam type or iterative reconstruction. INDICATION: Abdominal pain COMPARISON: 03/29/2022 FINDINGS: Lower chest: Linear atelectasis in the medial aspect of the right lower lobe. Peritoneum: No free intraperitoneal air or fluid. Liver and biliary system: Unchanged shrunken and nodular liver indicative of cirrhosis. No focal hepatic masses developed. Gallbladder is contracted without relate opaque stones. Spleen and Pancreas: Unchanged splenomegaly. Multiple enlarged perigastric and perisplenic varicosities are noted. Splenorenal shunt is noted. The pancreas enhances normally without mass lesion or peripancreatic inflammatory changes. Adrenals: No adrenal mass. tract: The kidneys enhance normally without suspicious mass or obstruction. Urinary bladder is distended without wall thickening. Nonobstructing punctate stones in the right kidney. Prostate is not enlarged. GI tract: Stomach is filled with fluid and food debris. No bowel obstruction. No pericolonic inflammatory changes. No appendicitis. Vasculature and Lymph nodes: Normal caliber aorta. No abdominal or pelvic lymphadenopathy. IVC filter is in good position. Musculoskeletal: No concerning osseous lesion. IMPRESSION: 1. No acute obstructive or inflammatory process. 2. Cirrhosis with numerous large left upper quadrant varicosities are unchanged 3. Unchanged splenomegaly also due to portal hypertension. Dictated by: Dictated on workstation # [id number]
[2022-07-14 20:51] VITALS: BP 136/61
[2022-07-14 20:52] LABS: ABG BASE EXCESS -3.6 MMOL/L (-2.5-2.5); ABG OXYGEN SATURATION 95 % (94-100); ABG PCO2 30 MMHG (35-45); ABG PH 7.43 (7.37-7.43); ABG PO2 78 MMHG (79-93); ABG TCO2 20.9 MMOL/L (21.0-31.0)
[2022-07-14 20:53] LABS: ALLENS TEST YES-POS; PATIENT TEMP 37.1; VENTILATOR NO
[2022-07-14 20:55] VITALS: BP 136/61
[2022-07-14 21:10] VITALS: BP 136/61
[2022-07-14] MEDS ORDERED: RT-ALBUTEROL SULF 2.5 MG/3 ML PRE-MIX VIAL INH PRN (21:30)
[2022-07-14] MEDS ORDERED: MAGNESIUM 1 GM/100 ML IVPB 100 ML IV ONE (22:15)
[2022-07-14] MEDS: POTASSIUM CL 10MEQ/50ML IVPB 50 ML IV SCH (23:51)
[2022-07-14 23:52] LABS: BILIRUBIN,URINE NEGATIVE (NEGATIVE); CLARITY,URINE CLEAR; COLOR,URINE DARK YELLOW; GLUCOSE, URINE (UA) NEGATIVE (NEGATIVE); KETONES,URINE NEGATIVE (NEGATIVE); LEUKOCYTE ESTERASE ,URINE NEGATIVE (NEGATIVE); NITRITE,URINE NEGATIVE (NEGATIVE); PH,URINE 6.5 (5-9); PROTEIN,URINE NEGATIVE (NEGATIVE)
[2022-07-14 23:56] VITALS: BP 133/66
[2022-07-14 23:59] LABS: BACTERIA,URINE NEGATIVE /HPF; WBC,URINE 0-2 /HPF
[2022-07-15] MEDS: POTASSIUM CL 10MEQ/50ML IVPB 50 ML IV SCH ×3 (00:51→02:53)
[2022-07-15] MEDS: PIPERACILLIN SODIUM/TAZOBACTAM 4.5 GM in NS (IVPB) 100 ML IV SCH ×2 (01:10→08:16)
[2022-07-15 03:51] VITALS: BP 144/78
[2022-07-15 05:05] LABS: BASOPHILS % (AUTO) 0 % (0-10); HEMOGLOBIN 9.1 g/dL (13.3-17.7); MEAN CORPUSCULAR VOLUME 72 fL (80-99); MEAN PLATELET VOLUME 10.6 fL (9.0-12.2)
[2022-07-15 05:07] LABS: EOSINOPHILS % (AUTO) 1 % (0-10); HEMATOCRIT 28 % (40-54); LYMPHOCYTES # (AUTO) 0.6 10^3/uL (1.0-4.0); LYMPHOCYTES % (AUTO) 14 % (12-44); MEAN CORPUSCULAR HEMOGLOBIN 23 pg (25-34); MEAN CORPUSCULAR HGB CONC 32 g/dL (32-36); MONOCYTES # (AUTO) 0.8 10^3/uL (0.0-1.0); MONOCYTES % (AUTO) 21 % (0-12); NEUTROPHILS # (AUTO) 2.4 10^3/uL (1.8-7.8); NEUTROPHILS % (AUTO) 60 % (42-75); PLATELET COUNT 99 10^3/uL (130-400)
[2022-07-15 05:34] LABS: ALBUMIN 2.3 GM/DL (3.2-4.5); BILIRUBIN,TOTAL 1.5 MG/DL (0.1-1.0); CREATININE SERUM 0.69 MG/DL (0.60-1.30); MAGNESIUM 1.8 MG/DL (1.6-2.4); POTASSIUM 3.1 MMOL/L (3.6-5.0); TOTAL PROTEIN 4.3 GM/DL (6.4-8.2)
--- NOTE | 2022-07-15 05:43 | History & Physical ---
History of Present Illness Date Seen 07/15/22 Time Seen by a Provider: 10:00 Attending Physician Ivonne Casas DO PCP Admitting Physician: Ivonne Casas DO Attending Physician: Ivonne Casas DO Referring Physician Date of Admission Jul 14, 2022 at 18:16 Home Medications & Allergies Home Medications Reviewed patient Home Medication Reconciliation performed by pharmacy medication reconciliations document image technician and/or nursing. Patients Allergies have been reviewed. Allergies Allergies Coded Allergies No Known Drug Allergies (Flhagcfm34/23/19) Past Ptgjxvc-Wyfvcc-Lbmtps Hx Patient Social History Smoking Status: Former Smoker Former Smoker, Quit: May 01, 2015 Type Used: Cigarettes 2nd Hand Smoke Exposure: No Recent Foreign Travel: No Contact w/other who traveled: No Recent Hopitalizations: No Immunizations Up To Date Tetanus Booster (TDap): Unknown Date of Influenza Vaccine: Dec 30, 2020 Seasonal Allergies Seasonal Allergies: No Past Medical History Fatty tumor removal from arms, R ulnar transposition Respiratory: COPD, Sleep Apnea Currently Using CPAP: Yes Cardiac: Deep Vein Thrombosis, High Cholesterol, Hypertension Sexually Transmitted Disease: No HIV/AIDS: No Gastrointestinal: Crohns Disease, Esophageal Varices, Cirrhosis Musculoskeletal: Degenerate Disk Disease, Arthritis Endocrine: Diabetes, Insulin dep Loss of Vision: Bilateral Hearing Impairment: Hard of Hearing Psychosocial: Anxiety, Depression Skin/Integumentary: Psoriasis History of Blood Disorders: No Adverse Reaction to Blood Jackson: No (N/A) Family History Cardiovascular disease 19 FATHER Diabetes mellitus 19 FATHER FH: hypertension 19 MOTHER Myocardial infarction 19 FATHER 19 MOTHER G8 BROTHER Cancer, CAD Over 55 Years Old, Diabetes, Hypertension Physical Exam Physical Exam Vital Signs Vital Signs - First Documented 07/14/22 07/14/22 18:45 21:14 Temp 36.5 Pulse 82 Resp 19 B/P (MAP) 140/61 (87) Pulse Ox 100 O2 Delivery Room Air FiO2 21 Capillary Refill : Less Than 3 Seconds Height, Weight, BMI Height: 5'10.00" Weight: 289lbs. 0.0oz. 131.971789iu; 36.48 BMI Method:Stated Results Results/Procedures Labs Laboratory Tests 07/14/22 18:41 07/15/22 04:40 Patient resulted labs reviewed. Clinical Quality Measures DVT/VTE Risk/Contraindication: Contraindications-Pharm: Other *list below* Other: IVONNE Weinstein DO Jul 15, 2022 05:43
--- NOTE | 2022-07-15 06:38 | Consultation - Surgery ---
CHRIS DUKE 07/15/22 0638: History of Present Illness History of Present Illness Patient Consulted On(sindhu/time) 07/15/22 06:38 Date Seen by Provider: Jul 15, 2022 Time Seen by Provider: 07:23 Reason for Visit: Colitis/Abd pain History of Present Illness Consult requested by Dr. Casas 57yo M with h/o Ulcerative colitis, end stage liver disease, GERD, DVTs and PEs, and IVC filter placement was admitted for 02/07, constant, periumbilical abd pain that started following a fall on 07/06/22. Pt states that the pain feels like "someone stabbed me with a knife and is twisting it". Pt states that the pain started as a 02/07 and has not changed since onset. Pt denies exacerbation of pain but does note some relief with hydrocodone that he had at home. Pt also notes that he has experienced multiple episodes of diarrhea (5-6x daily) for the last few days. Pt notes two bowel movements containing streaked bright red blood a couple of days ago, has not experienced bloody bowel movements since. Pt has h/o ulcerative colitis and states that the pain feels similar to a flare but only believes that he is in a "small flare". Pt also notes decreased appetite since onset, last meal yesterday. CT abd/pelvis was remarkable for cirrhosis with numerous large LUQ varicosities that are unchanged when compared to last exam. Unchanged splenomegally d/t portal hypertension. CXR was unremarkable. Pt's last colonoscopy was in June of this year with Dr. Harrison and states it was "normal". Pt denies nausea, vomiting, CP, SOB, fever, lightheadedness, or weakness. Allergies and Home Medications Allergies Coded Allergies: No Known Drug Allergies (Verified , 02/20/19) Patient Home Medication List Home Medication List Reviewed: Yes Amlodipine Besylate (Amlodipine Besylate) 5 Mg Tablet, 5 MG PO DAILY, (Reported) Entered as Reported by: ARGENTINA LATHAM on 07/02/181638 Last Action: Continued Bisoprolol Fumarate (Bisoprolol Fumarate) 10 Mg Tablet, 10 MG PO DAILY, (Reported) Entered as Reported by: ARGENTINA LATHAM on 07/02/181638 Last Action: Converted Citalopram Hydrobromide (Citalopram HBr) 40 Mg Tablet, 40 MG PO HS, (Reported) Entered as Reported by: ИВАН MCGHEE on 01/23/201655 Last Action: Converted Ergocalciferol (Vitamin D2) (Vitamin D2) 1,250 Mcg (50836 Unit) Capsule, 1,250 MCG PO WED, SAT @1200, (Reported) Entered as Reported by: ИВАН MCGHEE on 06/22/20 0911 Last Action: Continued Furosemide (Furosemide) 40 Mg Tablet, 40 MG PO DAILY, (Reported) Entered as Reported by: ИВАН MCGHEE on 10/15/21943 Last Action: Continued Levofloxacin (Levofloxacin) 750 Mg Tablet, 750 MG PO DAILY, (Reported) Entered as Reported by: MOISES SILVEIRA on 07/15/221113 Last Action: Continued Magnesium Oxide (Magnesium Oxide) 400 Mg Tablet, 400 MG PO BID, (Reported) Entered as Reported by: ИВАН MCGHEE on 10/15/21943 Last Action: Converted Omeprazole (Omeprazole) 40 Mg Capsule.dr, 40 MG PO DAILY, (Reported) Entered as Reported by: ARGENTINA LATHAM on 07/02/181638 Last Action: Converted Potassium Chloride (Potassium Chloride) 10 Meq Capsule.er, 10 MEQ PO 1200, (Reported) Entered as Reported by: ИВАН MCGHEE on 01/23/201655 Last Action: Converted Prednisone (Prednisone) 20 Mg Tab, 20 MG PO DAILY, (Reported) Entered as Reported by: MOISES SILVEIRA on 07/15/221113 Last Action: Continued Rifaximin (Xifaxan) 550 Mg Tablet, 550 MG PO BID, (Reported) Entered as Reported by: ARGENTINA LATHAM on 07/02/181638 Last Action: Continued Rivaroxaban (Xarelto) 20 Mg Tablet, 20 MG PO HS, (Reported) Entered as Reported by: MOISES SILVEIRA on 07/15/221116 Last Action: Continued Spironolactone (Spironolactone) 50 Mg Tablet, 50 MG PO BID, (Reported) Entered as Reported by: ИВАН MCGHEE on 10/15/21943 Last Action: Converted Sulfasalazine (Sulfasalazine) 500 Mg Tablet, 3,000 MG PO HS, (Reported) Entered as Reported by: ИВАН MCGHEE on 9/24/20 1656 Last Action: Continued Vitamin A Palmitate (Vitamin A) 3,000 Mcg (01936 Unit) Capsule, 3,000 MCG PO 1200, (Reported) Entered as Reported by: MOISES SILVEIRA on 07/15/22 1120 Last Action: Converted Past Xaawzgj-Xjlpaw-Emfhzg Hx Patient Social History Smoking Status: Former Smoker Former Smoker, Quit: May 01, 2015 Type Used: Cigarettes 2nd Hand Smoke Exposure: No Recent Hopitalizations: No Alcohol Use?: No Have you traveled recently?: No Immunizations Up To Date Tetanus Booster (TDap): Unknown Date of Influenza Vaccine: Dec 30, 2020 Seasonal Allergies Seasonal Allergies: No Surgeries History of Surgeries: Yes (colonoscopies, lipoma removal; IVC filter) Respiratory History of Respiratory Disorde: Yes Respiratory Disorders: Pulmonary Embolism Cardiovascular History of Cardiac Disorders: Yes Cardiac Disorders: Deep Vein Thrombosis, High Cholesterol, Hypertension Neurological History of Neurological Disord: Yes (hepatic encephalopathy) Reproductive System Sexually Transmitted Disease: No HIV/AIDS: No Genitourinary History of Genitourinary Disor: No Gastrointestinal History of Gastrointestinal Di: Yes Gastrointestinal Disorders: Colitis (Ulcerative Colitis), Esophageal Varices, Cirrhosis Musculoskeletal History of Musculoskeletal Dis: Yes Musculoskeletal Disorders: Degenerate Disk Disease, Arthritis, Back Injury (Vertebral fxs) Endocrine History of Endocrine Disorders: No Endocrine Disorders: Diabetes, Insulin dep HEENT History of HEENT Disorders: Yes (Presbyopia, Lateral Strabismus of R eye ) Loss of Vision: Bilateral Hearing Impairment: Hard of Hearing Cancer History of Cancer: No Psychosocial History of Psychiatric Problem: Yes Behavioral Health Disorders: Anxiety, Depression Integumentary History of Skin or Integumenta: Yes Skin/Integumentary Disorders: Eczema Blood Transfusions History of Blood Disorders: No Adverse Reaction to a Blood Tr: No (N/A) Family Medical History Significant Family History: Cancer, CAD Over 55 Years Old, Diabetes, Hypertension Family Medial History: Cardiovascular disease 19 FATHER Diabetes mellitus 19 FATHER FH: hypertension 19 MOTHER Myocardial infarction 19 FATHER 19 MOTHER G8 BROTHER Review of Systems-General Constitutional: No chills, No diaphoresis EENTM: No eye pain, No vision loss Respiratory: No cough, No dyspnea on exertion Cardiovascular: No chest pain, No edema, No palpitations Gastrointestinal: abdominal pain (periumbilical ), diarrhea; No hematemesis; lo ss of appetite (decreased); No nausea, No vomiting Genitourinary: No discharge, No hematuria Musculoskeletal: back pain (from fall); No muscle weakness Skin: No change in color, No change in hair/nails Psychiatric/Neurological: Denies Anxiety, Denies Depressed All Other Systems Reviewed Negative Unless Noted: Yes (Negative excepted noted.) Physical Exam-General Problems Physical Exam Vital Signs Vital Signs - First Documented 07/14/22 07/14/22 18:45 21:14 Temp 36.5 Pulse 82 Resp 19 B/P (MAP) 140/61 (87) Pulse Ox 100 O2 Delivery Room Air FiO2 21 Capillary Refill : Less Than 3 Seconds General Appearance: WD/WN, no apparent distress HEENT: PERRL/EOMI Respiratory: lungs clear, normal breath sounds, no respiratory distress, no a ccessory muscle use Cardiovascular: regular rate, rhythm, no gallop, systolic murmur Peripheral Pulses: 2+ Dorsalis Pedis (R), 2+ Left Dors-Pedis (L) Gastrointestinal: guarding, tenderness (Suprapubic and RLQ/R flank region ) Extremities: no pedal edema, no calf tenderness Neurologic/Psychiatric: alert, normal mood/affect, oriented x 3 Skin: normal color, warm/dry, other (spider angiomas on chest and upper arms) Lymphatic: no adenopathy Data Review Labs Laboratory Tests 07/14/22 18:41: White Blood Count 3.6L, Red Blood Count 4.28L, Hemoglobin 9.9L, Hematocrit 31L, Mean Corpuscular Volume 73L, Mean Corpuscular Hemoglobin 23L, Mean Corpuscular Hemoglobin Concent 32, Red Cell Distribution Width 18.3H, Platelet Count 108L, Mean Platelet Volume 11.0, Immature Granulocyte % (Auto) 5, Neutrophils (%) ( Auto) 58, Lymphocytes (%) (Auto) 17, Monocytes (%) (Auto) 18H, Eosinophils (%) (Auto) 1, Basophils (%) (Auto) 1, Neutrophils # (Auto) 2.1, Lymphocytes # (Auto) 0.6L, Monocytes # (Auto) 0.7, Eosinophils # (Auto) 0.0, Basophils # (Auto) 0.0, Immature Granulocyte # (Auto) 0.2H, Neutrophils % (Manual) 65, Lymphocytes % (Manual) 21, Monocytes % (Manual) 13, Band Neutrophils 1, Percent Immature Platelet Fraction 4.7, Hypochromasia SLIGHT, Poikilocytosis SLIGHT, Anisocytosis SLIGHT, Erythrocyte Sedimentation Rate 16, Prothrombin Time 16.2H, INR Comment 1.3, Activated Partial Thromboplast Time 46H, Sodium Level 128L, Potassium Level 3.1L, Chloride Level 99, Carbon Dioxide Level 18L, Anion Gap 11, Blood Urea Nitrogen 14, Creatinine 0.85, Estimat Glomerular Filtration Rate 102, BUN/Creatinine Ratio 16, Glucose Level 132H, Lactic Acid Level 3.12*H, Calcium Level 6.9L, Corrected Calcium 7.9L, Total Bilirubin 1.4H, Aspartate Amino Transf (AST/SGOT) 57H, Alanine Aminotransferase (ALT/SGPT) 26, Alkaline Phosphatase 210H, Ammonia 49H, C-Reactive Protein High Sensitivity 6.27H, Total Protein 5.0L , Albumin 2.7L 07/14/22 20:43: Blood Gas Puncture Site LR, Blood Gas Patient Temperature 37.1, Arterial Blood pH 7.43, Arterial Blood Partial Pressure CO2 30L, Arterial Blood Partial Pressure O2 78L, Arterial Blood HCO3 20L, Arterial Blood Total CO2 20.9L, Arterial Blood Oxygen Saturation 95, Arterial Blood Base Excess -3.6L, Dylan Test YES-POS, Blood Gas Ventilator Setting NO, Blood Gas Inspired Oxygen UNK 07/14/22 20:51: Lactic Acid Level 2.00 07/14/22 23:32: Urine Color DARK YELLOW, Urine Clarity CLEAR, Urine pH 6.5, Urine Specific [place] <=1.005, Urine Protein NEGATIVE, Urine Glucose (UA) NEGATIVE, Urine Ketones NEGATIVE, Urine Nitrite NEGATIVE, Urine Bilirubin NEGATIVE, Urine Urobilinogen 0.2, Urine Leukocyte Esterase NEGATIVE, Urine RBC (Auto) NEGATIVE, Urine RBC NONE, Urine WBC 0-2, Urine Crystals NONE, Urine Bacteria NEGATIVE, Urine Casts NONE, Urine Mucus NEGATIVE, Urine Culture Indicated NO 07/15/22 04:40: White Blood Count 4.0L, Red Blood Count 3.95L, Hemoglobin 9.1L, Hematocrit 28L, Mean Corpuscular Volume 72L, Mean Corpuscular Hemoglobin 23L, Mean Corpuscular Hemoglobin Concent 32, Red Cell Distribution Width 18.2H, Platelet Count 99L, Mean Platelet Volume 10.6, Immature Granulocyte % (Auto) 4, Neutrophils (%) (Auto) 60, Lymphocytes (%) (Auto) 14, Monocytes (%) (Auto) 21H, Eosinophils (%) (Auto) 1, Basophils (%) (Auto) 0, Neutrophils # (Auto) 2.4, Lymphocytes # (Auto) 0.6L, Monocytes # (Auto) 0.8, Eosinophils # (Auto) 0.0, Basophils # (Auto) 0.0, Immature Granulocyte # (Auto) 0.2H, Percent Immature Platelet Fraction 4.1, Sodium Level 134L, Potassium Level 3.1L, Chloride Level 108H, Carbon Dioxide Level 17L, Anion Gap 9, Blood Urea Nitrogen 11, Creatinine 0.69, Estimat Glomerular Filtration Rate 109, BUN/Creatinine Ratio 16, Glucose Level 111H, Calcium Level 7.0L, Corrected Calcium 8.4L, Magnesium Level 1.8, Total Bilirubin 1.5H, Aspartate Amino Transf (AST/SGOT) 48H, Alanine Aminotransferase (ALT/SGPT) 20, Alkaline Phosphatase 218H, Total Protein 4.3L, Albumin 2.3L Radiology INDICATION: Abdominal pain COMPARISON: 03/29/2022 FINDINGS: Lower chest: Linear atelectasis in the medial aspect of the right lower lobe. Peritoneum: No free intraperitoneal air or fluid. Liver and biliary system: Unchanged shrunken and nodular liver indicative of cirrhosis. No focal hepatic masses developed. Gallbladder is contracted without relate opaque stones. Spleen and Pancreas: Unchanged splenomegaly. Multiple enlarged perigastric and perisplenic varicosities are noted. Splenorenal shunt is noted. The pancreas enhances normally without mass lesion or peripancreatic inflammatory changes. Adrenals: No adrenal mass. tract: The kidneys enhance normally without suspicious mass or obstruction. Urinary bladder is distended without wall thickening. Nonobstructing punctate stones in the right kidney. Prostate is not enlarged. GI tract: Stomach is filled with fluid and food debris. No bowel obstruction. No pericolonic inflammatory changes. No appendicitis. Vasculature and Lymph nodes: Normal caliber aorta. No abdominal or pelvic lymphadenopathy. IVC filter is in good position. Musculoskeletal: No concerning osseous lesion. IMPRESSION: 1. No acute obstructive or inflammatory process. 2. Cirrhosis with numerous large left upper quadrant varicosities are unchanged 3. Unchanged splenomegaly also due to portal hypertension Date of Exam:07/14/22 CHEST 1 VIEW, AP/PA ONLY CHEST 1 VIEW, AP/PA ONLY Indication: Chest pain. Comparison: 07/06/2022 Findings: No focal airspace disease in the visualized lungs. No pleural effusion or pneumothorax. Normal cardiomediastinal silhouette. Impression: 1. No acute cardiopulmonary process by portable radiography. Dictated by: Dictated on workstation # [id number] Dict: 07/14/222009 Trans: 07/14/222011 [facility] [id number] Interpreted by: PHILIPPE DOMINIQUE MD Electronically signed by: PHILIPPE DOMINIQUE MD 07/14/222011 Assessment/Plan Assessment/Plan Assessment/Plan Abd pain - possibly due to Ulcerative Colitis flare Diarrhea H/o recent fall On anticoagulation IVF Normal diet Pain medication prn Continue home Azulfidine No surgical intervention indicated at this time Clinical Quality Measures DVT/VTE Risk/Contraindication: Contraindications-Pharm: Other *list below* Other: MIGUEL Rogers DO 07/15/22 1154: History of Present Illness History of Present Illness Time Seen by Provider: 09:26 History of Present Illness Surgery asked to consult regarding abdominal pain. When I saw pt this am he was doing better than yesterday, pain was improved. He did have a loose stool this am, but no blood. Allergies and Home Medications Allergies Coded Allergies: No Known Drug Allergies (Verified , 02/20/19) Patient Home Medication List Home Medication List Reviewed: Yes Amlodipine Besylate (Amlodipine Besylate) 5 Mg Tablet, 5 MG PO DAILY, (Reported) Entered as Reported by: ARGENTINA LATHAM on 07/02/181638 Last Action: Continued Bisoprolol Fumarate (Bisoprolol Fumarate) 10 Mg Tablet, 10 MG PO DAILY, (Reported) Entered as Reported by: ARGENTINA LATHAM on 07/02/18 163 Last Action: Converted Citalopram Hydrobromide (Citalopram HBr) 40 Mg Tablet, 40 MG PO HS, (Reported) Entered as Reported by: ИВАН MCGHEE on 01/23/20 1656 Last Action: Converted Ergocalciferol (Vitamin D2) (Vitamin D2) 1,250 Mcg (33620 Unit) Capsule, 1,250 MCG PO WED, SAT @1200, (Reported) Entered as Reported by: ИВАН MCGHEE on 06/22/20 0911 Last Action: Continued Furosemide (Furosemide) 40 Mg Tablet, 40 MG PO DAILY, (Reported) Entered as Reported by: ИВАН MCGHEE on 10/15/21943 Last Action: Continued Levofloxacin (Levofloxacin) 750 Mg Tablet, 750 MG PO DAILY, (Reported) Entered as Reported by: MOISES SILVEIRA on 07/15/221113 Last Action: Continued Magnesium Oxide (Magnesium Oxide) 400 Mg Tablet, 400 MG PO BID, (Reported) Entered as Reported by: ИВАН MCGHEE on 10/15/21943 Last Action: Converted Omeprazole (Omeprazole) 40 Mg Capsule.dr, 40 MG PO DAILY, (Reported) Entered as Reported by: ARGENTINA LATHAM on 07/02/181638 Last Action: Converted Potassium Chloride (Potassium Chloride) 10 Meq Capsule.er, 10 MEQ PO 1200, (Reported) Entered as Reported by: ИАВН MCGHEE on 01/23/201655 Last Action: Converted Prednisone (Prednisone) 20 Mg Tab, 20 MG PO DAILY, (Reported) Entered as Reported by: MOISES SILVEIRA on 07/15/221113 Last Action: Continued Rifaximin (Xifaxan) 550 Mg Tablet, 550 MG PO BID, (Reported) Entered as Reported by: ARGENTINA LATHAM on 07/02/181638 Last Action: Continued Rivaroxaban (Xarelto) 20 Mg Tablet, 20 MG PO HS, (Reported) Entered as Reported by: MOISES SILVEIRA on 07/15/22 111 Last Action: Continued Spironolactone (Spironolactone) 50 Mg Tablet, 50 MG PO BID, (Reported) Entered as Reported by: ИВАН MCGHEE on 10/15/21943 Last Action: Converted Sulfasalazine (Sulfasalazine) 500 Mg Tablet, 3,000 MG PO HS, (Reported) Entered as Reported by: ИВАН MCGHEE on 01/23/20 165 Last Action: Continued Vitamin A Palmitate (Vitamin A) 3,000 Mcg (71578 Unit) Capsule, 3,000 MCG PO 1200, (Reported) Entered as Reported by: MOISES SILVEIRA on 07/15/22 112 Last Action: Converted Past Dadjjrt-Aztynw-Mgtjxo Hx Patient Social History Smoking Status: Former Smoker Alcohol Use?: No Surgeries History of Surgeries: Yes (colonoscopies, lipoma removal; IVC filter) Respiratory History of Respiratory Disorde: Yes Respiratory Disorders: Pulmonary Embolism Cardiovascular History of Cardiac Disorders: Yes Cardiac Disorders: Deep Vein Thrombosis, High Cholesterol, Hypertension Neurological History of Neurological Disord: Yes (hepatic encephalopathy) Reproductive System Hx Reproductive Disorders: No Genitourinary History of Genitourinary Disor: No Gastrointestinal History of Gastrointestinal Di: Yes Gastrointestinal Disorders: Colitis (Ulcerative Colitis), Esophageal Varices, Cirrhosis Musculoskeletal History of Musculoskeletal Dis: Yes Musculoskeletal Disorders: Degenerate Disk Disease, Arthritis, Back Injury (Vertebral fxs) Endocrine History of Endocrine Disorders: Yes Endocrine Disorders: Diabetes, Insulin dep HEENT History of HEENT Disorders: Yes Loss of Vision: Bilateral Hearing Impairment: Hard of Hearing Cancer History of Cancer: No Psychosocial History of Psychiatric Problem: Yes Behavioral Health Disorders: Anxiety, Depression Integumentary History of Skin or Integumenta: Yes Skin/Integumentary Disorders: Eczema Family Medical History Significant Family History: Heart Disease, Diabetes, Hypertension Family Medial History: Cardiovascular disease 19 FATHER Diabetes mellitus 19 FATHER FH: hypertension 19 MOTHER Myocardial infarction 19 FATHER 19 MOTHER G8 BROTHER Review of Systems-General Constitutional: No chills, No diaphoresis EENTM: No eye pain, No vision loss Respiratory: No cough, No dyspnea on exertion Cardiovascular: No chest pain, No edema, No palpitations Gastrointestinal: abdominal pain (periumbilical ), diarrhea; No hematemesis; loss of appetite (decreased); No nausea, No vomiting Genitourinary: No discharge, No hematuria Musculoskeletal: back pain (from fall); No muscle weakness Skin: No change in color, No change in hair/nails Psychiatric/Neurological: Anxiety, Depressed Physical Exam-General Problems Physical Exam General Appearance: WD/WN, no apparent distress, obese Eyes: Bilateral Eye PERRL, Bilateral Eye EOMI HEENT: PERRL/EOMI; No scleral icterus (R), No scleral icterus (L) Neck: non-tender, supple Respiratory: lungs clear, normal breath sounds, no respiratory distress, no accessory muscle use Cardiovascular: regular rate, rhythm, systolic murmur Gastrointestinal: no organomegaly, no pulsatile mass, guarding (voluntary), tenderness (Suprapubic and RLQ/R flank region ) Rectal: deferred Back: no CVA tenderness Extremities: no pedal edema, no calf tenderness Neurologic/Psychiatric: alert, normal mood/affect, oriented x 3 Skin: normal color, warm/dry Lymphatic: no adenopathy (neck, axilla or groin) Assessment/Plan Assessment/Plan Assessment/Plan Abd pain - possibly due to Ulcerative Colitis flare Diarrhea Cirrhosis H/o recent fall On anticoagulation IVF Normal diet Pain medication prn Continue home Azulfidine No surgical intervention indicated at this time I reviewed the CT myself and did not see anything concerning, he may have some mild colitis and his gallbladder is contracted (but it looked like that on last CT). I also discussed his case with Dr. Casas. No surgical intervention at this time. Supervisory-Addendum Brief Verification & Attestation Participated in pt care: history, MDM, physical Personally performed: exam, history, MDM, supervision of care Care discussed with: Medical Student Procedures: n/a Verification and Attestation of Medical Student E/M Service A medical student performed and documented this service. I then reviewed and verified all information documented by the medical student and made modifications to such information, when appropriate. I personally performed a physical exam, medical decision making and then discussed any differences between the notes and made revisions as necessary to create one note. Miguel Chappell , 07/15/22 , 12:09 CHRIS DUKE Jul 15, 2022 06:38 MIGUEL CHAPPELL DO Jul 15, 2022 11:54
[2022-07-15 08:00] VITALS: BP 131/65
[2022-07-15] MEDS: DOCUSATE SODIUM 100 MG (COLACE) CAP PO SCH (08:17)
[2022-07-15] MEDS: SENNOSIDES 8.6 MG (SENOKOT) TAB PO SCH (08:17)
[2022-07-15] MEDS ORDERED: PRD20T PO (11:14)
[2022-07-15] MEDS ORDERED: LEVO750T PO (11:14)
[2022-07-15] MEDS ORDERED: RIVA20TA PO (11:17)
[2022-07-15] MEDS ORDERED: VITA-203 PO (11:20)
--- NOTE | 2022-07-15 11:43 | Short Stay Summary-Hospitalist ---
History of Present Illness HPI/Chief Complaint CC: Acute abdominal pain with back pain post COVID HPI: This is a 57yoWM clinic patient of mine who has a h/o cirrhosis from primary sclerosing cholangitis from ulcerative colitis who presents to the stepdown unit with report of severe abdominal pain following COVID. He was placed on Levaquin from [facility] the previous weekend. My concern for acute abdominal issue required conversation with Dr Doyle and CT obtained which did not reveal any surgical abnl. Currently he is feeling much better and ready for DC. Source: patient, family Exam Limitations: clinical condition Date Seen 07/15/22 Time Seen by a Provider: 11:00 Attending Physician Ivonne Casas DO PCP Admitting Physician: Ivonne Casas DO Attending Physician: Ivonne Casas DO Referring Physician Date of Admission Jul 14, 2022 at 18:16 Home Medications & Allergies Home Medications Reviewed patient Home Medication Reconciliation performed by pharmacy medication reconciliations phone technician and/or nursing. Patients Allergies have been reviewed. Allergies Allergies Coded Allergies No Known Drug Allergies (Hsbkarpx43/23/19) Past Bcetxmi-Bufwpr-Huemtk Hx Patient Social History Marrital Status: Employed/Student: retired Tobacco Use?: No Smoking Status: Former Smoker Smokeless Tobacco Frequency: Never a User Use of E-Cig and/or Vaping dev: No Use of E-Cig and/or Vaping Bry: Never a User Substance use?: No Alcohol Use?: No Pt feels they are or have been: No Immunizations Up To Date Date of Influenza Vaccine: Dec 30, 2020 First/Initial COVID19 Vaccinat: OCTOBER Second COVID19 Vaccination Yair: NOV Tetanus Booster (TDap): More Than 5 Years Hepatitis A: No Hepatitis B: No Seasonal Allergies Seasonal Allergies: No Current Status Advance Directives: Yes Advance Directive Location: Copy from prev record Communicates: Verbally Primary Language: Serbian Preferred Spoken Language: Serbian Is interpretation needed?: No Implanted or Applied Medical D: Other Past Medical History Pulmonary Embolism, Sleep Apnea, COPD Currently Using CPAP: Yes Deep Vein Thrombosis, High Cholesterol, Hypertension Sexually Transmitted Disease: No HIV/AIDS: No Colitis (Ulcerative Colitis), Esophageal Varices, Cirrhosis Degenerate Disk Disease, Arthritis, Back Injury (Vertebral fxs) Diabetes, Insulin dep Loss of Vision: Bilateral Hearing Impairment: Hard of Hearing Anxiety, Depression Eczema Blood Disorders: No Adverse Reaction/Blood Tranf: No (N/A) Family Medical History Cardiovascular disease 19 FATHER Diabetes mellitus 19 FATHER FH: hypertension 19 MOTHER Myocardial infarction 19 FATHER 19 MOTHER G8 BROTHER Cancer, CAD Over 55 Years Old, Diabetes, Hypertension Review of Systems Constitutional: see HPI Gastrointestinal: abdominal pain, loss of appetite Physical Exam Physical Exam Vital Signs Vital Signs - First Documented 07/14/22 07/14/22 18:45 21:14 Temp 36.5 Pulse 82 Resp 19 B/P (MAP) 140/61 (87) Pulse Ox 100 O2 Delivery Room Air FiO2 21 Capillary Refill : Less Than 3 Seconds Height, Weight, BMI Height: 5'10.00" Weight: 289lbs. 0.0oz. [id number]; 37.09 BMI Method:Stated General Appearance: No Apparent Distress, WD/WN, Chronically ill, Obese Eyes: Bilateral Eye Normal Inspection, Bilateral Eye PERRL HEENT: PERRL/EOMI, Normal ENT Inspection, Pharynx Normal Neck: Full Range of Motion, Normal Inspection, Non Tender, Supple, Carotid Bruit Respiratory: Chest Non Tender, Lungs Clear, Normal Breath Sounds, No Accessory Muscle Use, No Respiratory Distress Cardiovascular: Regular Rate, Rhythm, No Edema, No Gallop, No JVD, No Murmur, Normal Peripheral Pulses Gastrointestinal: Normal Bowel Sounds, No Organomegaly, No Pulsatile Mass, Non Tender, Soft Back: Normal Inspection, No CVA Tenderness, No Vertebral Tenderness Extremity: Normal Capillary Refill, Normal Inspection, Normal Range of Motion, Non Tender, No Calf Tenderness, No Pedal Edema Neurologic/Psychiatric: Alert, Oriented x3, No Motor/Sensory Deficits, Normal Mood/Affect Skin: Normal Color, Warm/Dry Lymphatic: No Adenopathy Results Results/Procedures Labs Laboratory Tests 07/14/22 18:41 07/15/22 04:40 Patient resulted labs reviewed. Short Stay Diagnosis Discharge Diagnosis-Short Stay Admission Diagnosis Acute abdominal pain Final Discharge Diagnosis Acute abdominal pain PSC UC ESLD Hyponatremia Recent compression fracture Plan: Monitor closely Fall risk Conclusion Plan MO home Clinical Quality Measures DVT/VTE Risk/Contraindication: Contraindications-Pharm: Other *list below* Other: IVONNE Weinstein DO Jul 15, 2022 11:43
[2022-07-15] MEDS ORDERED: NON-FORMULARY MEDICATION 1 EA EA (Potassium Chloride 10 MEQ) PO SCH (12:00)
[2022-07-15] MEDS ORDERED: VITAMIN A PALMITATE PO SCH (12:00)
[2022-07-15] MEDS ORDERED: KCL 10 MEQ TAB (MICRO K) PO SCH (12:00)
[2022-07-15] MEDS ORDERED: OXC5T PO ×2 (12:05→13:22)
[2022-07-15 12:08] VITALS: BP 141/67
--- NOTE | 2022-07-15 13:52 | Physical Therapy Evaluation ---
PT Evaluation-General Medical Diagnosis Admission Date Jul 14, 2022 at 18:16 Medical Diagnosis: cholecystitis flare/sepsis Onset Date: Jul 14, 2022 Therapy Diagnosis Therapy Diagnosis: debility Height/Weight Height (Feet): 5 Height (Inches): 10.00 Weight (Pounds): 289 Weight (Ounces): 0.0 Precautions Precautions/Isolations: Fall Prevention, Standard Precautions Referral Physician: Augusto Reason for Referral: Evaluation/Treatment Medical History Pertinent Medical History: DM, HTN Additional Medical History cirrhosis Reviewed History: Yes Social History Home: Single Level Current Living Status: Spouse Prior Prior Level of Function SCALE: Activities may be completed with or without assistive devices. 8-Omkejyzpmb-rjlwqrh completes the activity by him/herself with no assistance from a helper. 5-Set-up or Clean-up Assistance-helper sets up or cleans up; patient completes activity. [place] assists only prior to or following the activity. 4-Supervision or Touching Assistance-helper provides verbal cues and/or touching/steadying and/or contact guard assistance as patient completes activity. Assistance may be provided throughout the activity or intermittently. 3-Partial/Moderate Assistance-helper does LESS THAN HALF the effort. [place] lifts, holds or supports trunk or limbs, but provides less than half the effort. 2-Substantial/Maximal Assistance-helper does MORE THAN HALF the effort. [place] lifts or holds trunk or limbs and provides more than half the effort. 3-Kztagipfy-utezvs does ALL the effort. Patient does none of the effort to complete the activity. Or, the assistance of 2 or more helpers is required for the patient to complete the activity. If activity was not attempted, code reason: 7-Patient Refused. 9-Not Applicable-not attempted and the patient did not perform the activity before the current illness, exacerbation or injury. 10-Not Attempted due to Environmental Limitations-(lack of equipment, weather restraints, etc.). 88-Not Attempted due to Medical Conditions or Safety Concerns. Bed Mobility: 6 Transfers (B,C,W/C): 6 Gait: 6 Indoor Mobility (Ambulation): Independent Prior Devices Use: Other-see list below Prior Device Use: cane PT Evaluation-Current Subjective Patient agrees to PT. Objective Patient Orientation: Normal For Age Attachments: IV ROM/Strength ROM Lower Extremities bilateral LE WFL Strength Lower Extremities 5/5 grossly bilateral LE Integumentary/Posture Bowel Incontinence: No Bladder Incontinence: No Neuromuscular (Tone, Coordination, Reflexes) grossly intact Sensory Vision: Wears Glasses Transfers Lying to Sitting/Side of Bed(Q: 6 Sit to Stand (QC): 6 Chair/Spy-gf-Cmvud Xfer(QC): 6 Gait Mode of Locomotion: Walk Anticipated Mode of Locomotion: Walk Walk 10 feet (QC): 6 Walk 50 ft with 2 Turns(QC): 6 Walk 150 ft (QC): 6 Distance: 250' Gait Assistive Device: Cane Single Point Comments/Gait Description safe and functional with no deviation Balance Sitting Static: Normal Sitting Dynamic: Normal Standing Static: Normal Standing Dynamic: Normal Assessment/Needs Patient is currently at independent OF with all gross motor skills and does not require skilled PT indication. Rehab Potential: Fair PT Plan Treatment/Plan Treatment Plan: Discontinue PT Treatment Duration: Jul 15, 2022 Frequency: 1 time per week Estimated Hrs Per Day: .25 hour per day Patient and/or Family Agrees t: Yes Time Time In: 1335 Time Out: 1345 DATE: Jul 15, 2022 Total Billed Treatment Time: 10 Total Billed Treatment 1 visit EVLow 10 min RYDER MEDEIROS PT Jul 15, 2022 13:52
[2022-07-15 15:04] VITALS: BP 137/86
[2022-07-15] MEDS ORDERED: RIVAROXABAN 20 MG TABLET (XARELTO) PO SCH (17:00)
[2022-07-15] MEDS ORDERED: MAGNESIUM OXIDE (MAG-OX)400 MG TAB PO SCH (18:00)
[2022-07-15] MEDS ORDERED: SPIRONOLACTONE 25 MG (ALDACTONE) TAB PO SCH (21:00)
[2022-07-15] MEDS ORDERED: NON-FORMULARY MEDICATION 1 EA EA (Magnesium Oxide 400 MG) PO SCH (21:00)
[2022-07-15] MEDS ORDERED: NON-FORMULARY MEDICATION 1 EA EA (Citalopram Hydrobromide (Citalopram HBr) 40 MG) PO SCH (21:00)
[2022-07-15] MEDS ORDERED: RIFAXIMIN 550 MG TABLET (XIFAXAN) PO SCH (21:00)
[2022-07-15] MEDS ORDERED: sulfaSALAzine 500 MG (AZULFIDINE) TAB PO SCH (21:00)
[2022-07-15] MEDS ORDERED: NON-FORMULARY MEDICATION 1 EA EA (Spironolactone 50 MG) PO SCH (21:00)
[2022-07-16] MEDS ORDERED: predniSONE 20 MG TAB PO SCH (07:00)
[2022-07-16] MEDS ORDERED: FUROSEMIDE 40 MG (LASIX) TAB PO SCH (09:00)
[2022-07-16] MEDS ORDERED: PANTOPRAZOLE 40 MG (PROTONIX) TAB PO SCH (09:00)
[2022-07-16] MEDS ORDERED: NON-FORMULARY MEDICATION 1 EA EA (Bisoprolol Fumarate 10 MG) PO SCH (09:00)
[2022-07-16] MEDS ORDERED: NON-FORMULARY MEDICATION 1 EA EA (Omeprazole 40 MG) PO SCH (09:00)
[2022-07-16] MEDS ORDERED: amLODIPine 5 MG (NORVASC) TAB PO SCH (09:00)
[2022-07-16] MEDS ORDERED: BISOPROLOL 5 MG TAB (ZEBETA) PO SCH (09:00)
[2022-07-16] MEDS ORDERED: VITAMIN D2 1.25 MG (50,000 UNITS) CAP PO SCH (12:00)
== END 2022-07-15 15:00 | disposition home or self-care (01) ==
LOC: INTOOBSV 18:16 → CSD 18:16
PROVIDERS: ADMIT Internal Medicine; ATTEND Internal Medicine
DX: K83.01 Primary sclerosing cholangitis (principal); K51.90 Ulcerative colitis, unspecified, without complications; N18.6 End stage renal disease; E87.1 Hypo-osmolality and hyponatremia; T14.8XXA Other injury of unspecified body region, initial encounter; U09.9 Post COVID-19 condition, unspecified; R19.7 Diarrhea, unspecified; W19.XXXA Unspecified fall, initial encounter; Z87.891 Personal history of nicotine dependence; Z79.891 Long term (current) use of opiate analgesic; Z79.01 Long term (current) use of anticoagulants
CPT/HCPCS: 36415; 36600; 71045; 74177; 80053; 81000; 82140; 82805; 83605; 83735; 85007; 85025; 85027; 85610; 85652; 85730; 86141; 87040; 87088; 93005; 94760; 96365; 96366; 96375; 96376

== ENCOUNTER → 2022-12-07 | Outpatient (CLI) | payer MEDICARE ==
[~2022-12-07] MED LIST changes: +LEVO750T PO; -POTA10CA44 PO; +POTA10CA84 PO; +PRD20T PO; +RIVA20TA PO
--- NOTE | 2022-12-07 15:52 | Diagnostic Imaging Report ---
PROCEDURE: CT chest without contrast. TECHNIQUE: Multiple contiguous axial images were obtained through the chest without the use of intravenous contrast. Auto Exposure Controls were utilized during the CT exam to meet ALARA standards for radiation dose reduction. INDICATION: Liver cancer There is 8 mm spiculated nodular lesion in the right upper lobe image 52 series 3 could be a primary lung neoplasm. Lungs otherwise clear. There are no effusions or pneumothoraces. There is no hilar or mediastinal lymphadenopathy. There is minimal aortic calcific atherosclerosis. There are small stones seen in the gallbladder and both kidneys. Liver appears cirrhotic. There is large spontaneous splenorenal shunt. IMPRESSION: 8 mm spiculated lesion right upper lobe could be a primary lung cancer. This appears stable compared to CT chest from 03/30/2022. Dictated by: Dictated on workstation # [id number]
== END ==
LOC: RAD 15:17
PROVIDERS: ATTEND Internal Medicine Hepatology
DX: J98.4 Other disorders of lung (principal); C22.0 Liver cell carcinoma
CPT/HCPCS: 71250

== ENCOUNTER 2023-01-12 12:31 | Emergency (ER) | payer MEDICARE ==
[~2023-01-12] VITALS: Ht 177.8 cm; Wt 112.5 kg
[2023-01-12] VITALS (8 sets, daily range): BP systolic 112–127; BP diastolic 60–73
[2023-01-12 13:22] LABS: NEUTROPHILS % (AUTO) 79 % (42-75)
--- NOTE | 2023-01-12 13:22 | ED General ---
General Chief Complaint: General Problems/Pain Stated Complaint: LOW IRON | SUSAN PATIENT Nursing Triage Note: Patient c/o fatigue and dizziness that started 3 days ago after a tace procedure on Monday. Patient states SUSAN called and stated his iron level was a 2. Patient states SUSAN called him today to have lab test done and get checked out. Source of Information: Patient Exam Limitations: No Limitations History of Present Illness Date Seen by Provider: Jan 12, 2023 Time Seen by Provider: 12:57 Initial Comments 57-year-old male presents the emergency department today for fear of "low iron." He states he had a TACE procedure last Monday to place chemotherapy beads around his liver secondary to liver cancer which is thought to have been secondary to sclerosing cholangitis. His "iron" was 7 after the procedure. They had blood drawn yesterday and was told it was 2 today. They were advised to come for further evaluation and treatment recommendations. He denies any significant abdominal pain. Right groin incision site from his procedure looks good according to him without any swelling. He also had a liver biopsy on the right upper abdomen and he states the sites are nonswollen or significantly bruised, nontender. No fevers or chills. He has intermittently had some mild confusion but his states he has a history of hepatic encephalopathy. No changes in bowels though he does have loose stools frequently secondary to lactulose use. All other systems reviewed and negative except documented per HPI. Voice recognition software was used to help create this chart Allergies and Home Medications Allergies Coded Allergies: No Known Drug Allergies (Verified , 02/20/19) Patient Home Medication List Home Medication List Reviewed: Yes Amlodipine Besylate (Amlodipine Besylate) 5 Mg Tablet, 5 MG PO DAILY, (Reported) Entered as Reported by: ARGENTINA LATHAM on 07/02/18 1639 Bisoprolol Fumarate (Bisoprolol Fumarate) 10 Mg Tablet, 10 MG PO DAILY, (Reported) Entered as Reported by: ARGENTINA LATHAM on 07/02/18 1639 Citalopram Hydrobromide (Citalopram HBr) 40 Mg Tablet, 40 MG PO HS, (Reported) Entered as Reported by: ИВАН MCGHEE on 01/23/20 1656 Ergocalciferol (Vitamin D2) (Vitamin D2) 1,250 Mcg (72673 Unit) Capsule, 1,250 MCG PO WED, SAT @1200, (Reported) Entered as Reported by: ИВАН MCGHEE on 06/22/20 0911 Furosemide (Furosemide) 40 Mg Tablet, 40 MG PO DAILY, (Reported) Entered as Reported by: ИВАН MCGHEE on 10/15/21 0944 Levofloxacin (Levofloxacin) 750 Mg Tablet, 750 MG PO DAILY, (Reported) Entered as Reported by: MOISES SILVEIRA on 07/15/22 1114 Magnesium Oxide (Magnesium Oxide) 400 Mg Tablet, 400 MG PO BID, (Reported) Entered as Reported by: ИВАН MCGHEE on 10/15/21 0944 Omeprazole (Omeprazole) 40 Mg Capsule.dr, 40 MG PO DAILY, (Reported) Entered as Reported by: ARGENTINA LATHAM on 07/02/18 1639 Oxycodone Hcl (Oxyir Tablet) 5 Mg Tab, 5 MG PO BID PRN for PAIN-MODERATE TO SEVERE Prescribed by: DIANA BARRIGA on 07/15/22 1323 Potassium Chloride (Potassium Chloride) 10 Meq Capsule.er, 10 MEQ PO 1200, (Reported) Entered as Reported by: ИВАН MCGHEE on 01/23/20 1656 Prednisone (Prednisone) 20 Mg Tab, 20 MG PO DAILY, (Reported) Entered as Reported by: MOISES SILVEIRA on 07/15/22 1114 Rifaximin (Xifaxan) 550 Mg Tablet, 550 MG PO BID, (Reported) Entered as Reported by: ARGENTINA LATHAM on 07/02/18 1639 Rivaroxaban (Xarelto) 20 Mg Tablet, 20 MG PO HS, (Reported) Entered as Reported by: MOISES SILVEIRA on 07/15/22 1117 Spironolactone (Spironolactone) 50 Mg Tablet, 50 MG PO BID, (Reported) Entered as Reported by: ИВАН MCGHEE on 10/15/21 0944 Sulfasalazine (Sulfasalazine) 500 Mg Tablet, 3,000 MG PO HS, (Reported) Entered as Reported by: ИВАН MCGHEE on 01/23/20 1656 Vitamin A Palmitate (Vitamin A) 3,000 Mcg (28362 Unit) Capsule, 3,000 MCG PO 1200, (Reported) Entered as Reported by: MOISES SILVEIRA on 07/15/22 1120 Review of Systems Review of Systems Constitutional: see HPI Past Svqzfmf-Jyeuaz-Tydwmf Hx Patient Social History Tobacco Use?: No Smoking Status: Former Smoker Use of E-Cig and/or Vaping dev: No Substance use?: No Alcohol Use?: No Pt feels they are or have been: No Immunizations Up To Date Tetanus Booster (TDap): Unknown Influenza Vaccine Up-to-Date: No; Not Current First/Initial COVID19 Vaccinat: October COVID19 Vaccination Yair: Nov COVID19 Vaccination Date: OCTOBER Seasonal Allergies Seasonal Allergies: No Past Medical History Surgery/Hospitalization HX: FX T11 VERTIBREA, ENDSTAGE LIVER DISEASE, ULCERATIVE CHOLETITIVE, HTN, HX BLOOT CLOTS, SLEEP APNEA, SURGERY 5 YEARS AGO FOR FATTY TUMOR LT ELBOW, PSORIASIS Surgeries: Yes (colonoscopies, lipoma removal; IVC filter) Respiratory: Yes Pulmonary Embolism, Sleep Apnea, COPD Currently Using CPAP: Yes Cardiac: Yes Deep Vein Thrombosis, High Cholesterol, Hypertension Neurological: Yes (hepatic encephalopathy) Reproductive Disorders: No Sexually Transmitted Disease: No HIV/AIDS: No Genitourinary: No Gastrointestinal: Yes Colitis, Esophageal Varices, Cirrhosis Musculoskeletal: Yes Degenerate Disk Disease, Arthritis, Back Injury Endocrine: Yes Diabetes, Insulin dep HEENT: Yes Loss of Vision: Bilateral Hearing Impairment: Hard of Hearing Cancer: No Psychosocial: Yes Anxiety, Depression Integumentary: Yes Eczema Blood Disorders: No Adverse Reaction/Blood Tranf: No (N/A) Family Medical History Cardiovascular disease 19 FATHER Diabetes mellitus 19 FATHER FH: hypertension 19 MOTHER Myocardial infarction 19 FATHER 19 MOTHER G8 BROTHER Heart Disease, Diabetes, Hypertension Physical Exam Vital Signs Vital Signs - First Documented 01/12/23 01/12/23 12:46 16:15 Temp 36.6 Pulse 67 Resp 18 B/P (MAP) 123/69 (87) Pulse Ox 99 O2 Delivery Room Air Capillary Refill : Height, Weight, BMI Height: 5'10.00" Weight: 289lbs. 0.0oz. 131.138333bz; 35.00 BMI Method:Stated General Appearance: No Apparent Distress, WD/WN Eyes: Bilateral Eye Normal Inspection, Bilateral Eye PERRL, Bilateral Eye EOMI HEENT: Normal ENT Inspection, Pharynx Normal Neck: Normal Inspection, Non Tender, Supple Respiratory: Chest Non Tender, Lungs Clear, Normal Breath Sounds, No Accessory Muscle Use, No Respiratory Distress Cardiovascular: Regular Rate, Rhythm, No Murmur, Normal Peripheral Pulses Gastrointestinal: Soft, Other (Abdomen is distended, nontender. Mild bruising his right upper abdomen from his biopsy site without any swelling. Very mild diffuse tenderness. No rebound or guarding.) Back: Normal Inspection Extremity: Normal Capillary Refill, Normal Inspection, Non Tender Neurologic/Psychiatric: Alert, Oriented x3, No Motor/Sensory Deficits Skin: Normal Color, Warm/Dry Progress/Results/Core Measures Suspected Sepsis SIRS Temperature: Pulse: 67 Respiratory Rate: 18 Laboratory Tests 01/12/23 13:05: White Blood Count 9.0 Blood Pressure 123 /69 Mean: 87 Laboratory Tests 01/12/23 13:05: Creatinine 0.76, INR Comment 2.5H, Platelet Count 127L, Total Bilirubin 3.4H Results/Orders Lab Results Laboratory Tests Test 01/12/23 13:05 Range/Units White Blood Count 9.0 4.3-11.0 10^3/uL Red Blood Count 3.29 L 4.30-5.52 10^6/uL Hemoglobin 6.9 *L 13.3-17.7 g/dL Hematocrit 25 L 40-54 % Mean Corpuscular Volume 75 L 80-99 fL Mean Corpuscular Hemoglobin 21 L 25-34 pg Mean Corpuscular Hemoglobin Concent 28 L 32-36 g/dL Red Cell Distribution Width 20.0 H 10.0-14.5 % Platelet Count 127 L 130-400 10^3/uL Mean Platelet Volume 10.9 9.0-12.2 fL Immature Granulocyte % (Auto) 1 % Neutrophils (%) (Auto) 79 H 42-75 % Lymphocytes (%) (Auto) 8 L 12-44 % Monocytes (%) (Auto) 11 0-12 % Eosinophils (%) (Auto) 1 0-10 % Basophils (%) (Auto) 0 0-10 % Neutrophils # (Auto) 7.1 1.8-7.8 10^3/uL Lymphocytes # (Auto) 0.7 L 1.0-4.0 10^3/uL Monocytes # (Auto) 1.0 0.0-1.0 10^3/uL Eosinophils # (Auto) 0.1 0.0-0.3 10^3/uL Basophils # (Auto) 0.0 0.0-0.1 10^3/uL Immature Granulocyte # (Auto) 0.1 0.0-0.1 10^3/uL Neutrophils % (Manual) 86 % Lymphocytes % (Manual) 6 % Monocytes % (Manual) 7 % Eosinophils % (Manual) 1 % Basophils % (Manual) 0 % Band Neutrophils 0 % Nucleated Red Blood Cells 1 Percent Immature Platelet Fraction 6.3 0.0-7.6 % Hypochromasia SLIGHT Anisocytosis SLIGHT Microcytosis SLIGHT Tear Drop Cells SLIGHT Elliptocytes SLIGHT Prothrombin Time 26.4 H 12.2-14.7 SEC INR Comment 2.5 H 0.8-1.4 Sodium Level 132 L 135-145 MMOL/L Potassium Level 4.5 3.6-5.0 MMOL/L Chloride Level 101 98-107 MMOL/L Carbon Dioxide Level 21 21-32 MMOL/L Anion Gap 10 5-14 MMOL/L Blood Urea Nitrogen 14 7-18 MG/DL Creatinine 0.76 0.60-1.30 MG/DL Estimat Glomerular Filtration Rate 105 BUN/Creatinine Ratio 18 Glucose Level 149 H 70-105 MG/DL Calcium Level 7.8 L 8.5-10.1 MG/DL Corrected Calcium 8.9 8.5-10.1 MG/DL Total Bilirubin 3.4 H 0.1-1.0 MG/DL Aspartate Amino Transf (AST/SGOT) 103 H 5-34 U/L Alanine Aminotransferase (ALT/SGPT) 298 H 0-55 U/L Alkaline Phosphatase 307 H 40-136 U/L Ammonia 30 11-32 UMOL/L Total Protein 4.9 L 6.4-8.2 GM/DL Albumin 2.6 L 3.2-4.5 GM/DL My Orders Orders - KAITLINBOO DO Protime With Inr (01/12/23 13:03) Comprehensive Metabolic Panel (01/12/23 13:03) Ammonia (01/12/23 13:03) Type And Screen (01/12/23 13:03) Ct Abdomen/Pelvis W (01/12/23 13:03) Cbc With Automated Diff (01/12/23 13:03) Manual Differential (01/12/23 13:05) Iohexol Injection (Omnipaque 350 Mg/Ml 1 (01/12/23 13:45) Received Contrast (Hold Metformin- Contr (01/12/23 13:45) Ns (Ivpb) 100 Ml (Sodium Chloride 0.9% 1 (01/12/23 13:45) Consent-Obtain Consent For (01/12/23 15:31) Monitor S/S Transfusion Reacti (01/12/23 15:31) Ns Iv 500 Ml (Ns Iv 500 Ml) (01/12/23 15:45) Red Cells Leukocytes Reduced (01/12/23 15:31) Medications Given in ED Current Medications Medications Dose Ordered Sig/Vesta Route Start Time Stop Time Status Last Admin Dose Admin Iohexol 100 ml ONCE ONCE IV 01/12/23 13:45 01/12/23 13:46 DC 01/12/23 14:31 100 ML Sodium Chloride 100 ml ONCE ONCE IV 01/12/23 13:45 01/12/23 13:46 DC 01/12/23 14:31 80 ML Vital Signs/I&O 01/12/23 01/12/23 01/12/23 01/12/23 12:46 16:15 16:20 16:25 Temp 36.6 37.6 37.8 37.7 Pulse 67 69 69 70 Resp 18 16 15 B/P (MAP) 123/69 (87) 123/60 119/63 127/72 Pulse Ox 99 99 99 O2 Delivery Room Air Room Air Room Air Room Air 01/12/23 01/12/23 01/12/23 16:30 16:35 17:05 Temp 37.9 37.8 37.6 Pulse 68 68 70 Resp 20 15 B/P (MAP) 114/62 121/73 112/69 Pulse Ox 98 99 100 O2 Delivery Room Air Room Air Room Air Capillary Refill : Blood Pressure Mean: 87 Progress Note : Time: 14:46 Progress Note Patient has significant anemia with a hemoglobin of 6.9. No active bleeding on his CT scan, no perihepatic hematoma or other acute abnormalities. He has no dark tarry or bloody stools. I spoke with [facility] hepatology who the patient sees for his cancer treatment. They recommended transfusing 1 unit PRBCs. They do not believe the patient likely needs to be transported at this time. As there is no active bleeding I think he is likely stable for discharge. We will plan to transfuse here and discharge as long as he tolerates this well. Critical Care Note Critical Care Total Time (minutes) 60 Departure Communication (Admissions) Patient is hemodynamically stable. He is anemic at 6.9. I spoke with his front sight attacher who manages his cancer recommends transfusing 1 unit of PRBCs as the patient is symptomatic with fatigue and some mild shortness of breath. His oxygen saturation stable his blood pressures are stable as well. He is given 1 unit PRBCs here in the emergency department. CT scan shows no evidence for active bleeding after his procedure. Still having bloody or dark tarry stools he is not on any anticoagulation. His INR is already elevated secondary to his liver disease. He is stable for discharge home at this time with no active bleeding. I recommended he follow-up on Monday for recheck of his CBC. He is given strict return precautions and discharged in stable condition. There is no indication for acute admission at this time Impression Primary Impression: Anemia Qualified Codes: D64.9 - Anemia, unspecified Additional Impression: Fatigue Qualified Codes: R53.83 - Other fatigue Disposition: HOME, SELF-CARE Condition: Stable Departure-Patient Inst. Referrals: DIANA BARRIGA DO (PCP/Family) Primary Care Physician Patient Instructions: Normocytic Normochromic Anemia (DC) Add. Discharge Instructions: You are anemic today. There is no obvious active bleeding anywhere on your CT scan or exam. Your vital signs are otherwise stable. We have given you 1 unit of blood here in the emergency department. I recommend you have your blood counts rechecked on Monday with your primary care doctor. Return to the emergency department immediately if develop any significant shortness of breath, lightheadedness or any obvious signs of bleeding to include bloody or dark tarry stools, bloody emesis, severe abdominal pain or distention. All discharge instructions reviewed with patient and/or family. Voiced understanding. BOO MADRIGAL DO Jan 12, 2023 13:22
[2023-01-12 13:24] LABS: BASOPHILS % (AUTO) 0 % (0-10); EOSINOPHILS # (AUTO) 0.1 10^3/uL (0.0-0.3); EOSINOPHILS % (AUTO) 1 % (0-10); HEMATOCRIT 25 % (40-54); LYMPHOCYTES # (AUTO) 0.7 10^3/uL (1.0-4.0); LYMPHOCYTES % (AUTO) 8 % (12-44); MEAN CORPUSCULAR HEMOGLOBIN 21 pg (25-34); MEAN CORPUSCULAR HGB CONC 28 g/dL (32-36); MEAN CORPUSCULAR VOLUME 75 fL (80-99); MEAN PLATELET VOLUME 10.9 fL (9.0-12.2); MONOCYTES % (AUTO) 11 % (0-12); NEUTROPHILS # (AUTO) 7.1 10^3/uL (1.8-7.8); PLATELET COUNT 127 10^3/uL (130-400)
[2023-01-12 13:27] LABS: ALBUMIN 2.6 GM/DL (3.2-4.5); POTASSIUM 4.5 MMOL/L (3.6-5.0)
[2023-01-12 13:28] LABS: CALCIUM 7.8 MG/DL (8.5-10.1)
[2023-01-12 13:29] LABS: HEMOGLOBIN 6.9 g/dL (13.3-17.7)
[2023-01-12 13:30] LABS: TOTAL PROTEIN 4.9 GM/DL (6.4-8.2)
[2023-01-12 13:32] LABS: BILIRUBIN,TOTAL 3.4 MG/DL (0.1-1.0)
[2023-01-12 13:33] LABS: CREATININE SERUM 0.76 MG/DL (0.60-1.30)
[2023-01-12 13:37] LABS: INR 2.5 (0.8-1.4); PROTHROMBIN TIME PATIENT 26.4 SEC (12.2-14.7)
[2023-01-12] MEDS ORDERED: HOLD METFORMIN - RECEIVED CONTRAST 20 ML VIAL IV SCH (13:45)
[2023-01-12] MEDS ORDERED: IOHEXOL 350 MG/ML 100 ML (OMNIPAQUE 350) VIAL IV ONE (13:45)
[2023-01-12] MEDS ORDERED: NS 100 ML (IVPB) BAG IV ONE (13:45)
[2023-01-12 13:58] LABS: BAND NEUTROPHILS 0 %; BASOPHILS % (MANUAL) 0 %; EOSINOPHILS % (MANUAL) 1 %; LYMPHOCYTES % (MANUAL) 6 %; MONOCYTES % (MANUAL) 7 %; NEUTROPHILS % (MANUAL) 86 %; NUCLEATED RED BLOOD CELLS 1
[2023-01-12 13:59] LABS: ANISOCYTOSIS SLIGHT; ELLIPT/OVALOCYTES SLIGHT; HYPOCHROMASIA SLIGHT; MICROCYTOSIS SLIGHT; TEAR DROP CELLS SLIGHT
--- NOTE | 2023-01-12 14:57 | Diagnostic Imaging Report ---
PROCEDURE: CT abdomen and pelvis with contrast. TECHNIQUE: Multiple contiguous axial images were obtained through the abdomen and pelvis after administration of intravenous contrast. Auto Exposure Controls were utilized during the CT exam to meet ALARA standards for radiation dose reduction. All CT scans use one or more of the following dose optimizing techniques: Automated exposure control, MA and/or KvP adjustment based on patient size and exam type or iterative reconstruction. INDICATION: Right upper quadrant pain and anemia. COMPARISON: Correlation is made with prior CT 07/14/2022. FINDINGS: The lung bases are clear. Cirrhotic liver morphology is again noted. Numerous varices in the upper abdomen are again noted as well as splenomegaly consistent with portal hypertension. Patient has developed an area of low density in the medial aspect of the right lobe of the liver and caudate since prior CT. This is concerning for developing hepatocellular carcinoma. There does appear to be some intrahepatic biliary ductal dilatation that has developed as well. Gallbladder is contracted. Pancreas is unremarkable. No adrenal mass is identified. There are nonobstructing calculi in both kidneys, but no hydronephrosis. There is a small cyst in the lower pole of the left kidney. The aorta is nonaneurysmal. There is a filter in the IVC. Bowel loops demonstrate moderate stool throughout the colon. There is some moderate gaseous distention of small bowel loops. Overall appearance is similar to prior CT. There is no ascites. The bladder and prostate are unremarkable. IMPRESSION: 1. Findings suggestive of cirrhosis and portal hypertension. There has been development of a somewhat ill-defined low-attenuation mass in the right lobe of the liver and caudate concerning for developing liver neoplasm. Hepatocellular carcinoma cannot be entirely excluded. Hepatic MRI may be useful for further evaluation. 2. Nonobstructing bilateral nephrolithiasis. Dictated by: Dictated on workstation # [id number]
[2023-01-12] MEDS ORDERED: NS IV 500 ML 500 ML IV SCH (15:45)
== END 2023-01-12 18:30 | disposition home or self-care (01) ==
LOC: EDUNIT# 12:31 → ER 12:33
DX: D64.9 Anemia, unspecified (principal); C78.7 Secondary malignant neoplasm of liver and intrahepatic bile duct; K91.870 Postprocedural hematoma of a digestive system organ or structure following a digestive system procedure; E11.9 Type 2 diabetes mellitus without complications; G47.30 Sleep apnea, unspecified; Z99.89 Dependence on other enabling machines and devices; Z79.4 Long term (current) use of insulin; Z79.899 Other long term (current) drug therapy; Z98.890 Other specified postprocedural states; Z87.891 Personal history of nicotine dependence
CPT/HCPCS: 36430; 74177; 80053; 82140; 85007; 85027; 85610; 86850; 86900; 86901; 86920; 99285; P9016; 36415